=== PATIENT | male | born 1955 | race Caucasian/White ===

== ENCOUNTER 2017-02-06 15:42 | Inpatient (IN) | payer BC ==
[2017-02-06] MEDS ORDERED: IPRATROPIUM-ALBUTEROL 3 ML NEB INHALATION STA (16:16)
[2017-02-06] MEDS ORDERED: methylPREDNISolone SOD SUCCI 125 MG/2 ML VIAL IV STA (16:16)
--- NOTE | 2017-02-06 16:21 | ED ---
SOB HPI - General Chief Complaint: Shortness of Breath Stated Complaint: SOB Time Seen by Provider: 02/06/17 16:00 Source: patient, family, RN notes reviewed Mode of arrival: wheelchair Limitations: no limitations - History of Present Illness Initial Comments: This is a 61-year-old male with history of COPD who still smoker who is had intermittent episodes of swollen ankles orthopedist was also states she's had shortness of breath off was here today because of increasing shortness of breath he has had some cough of white phlegm no fevers chills or sweats he denies any overt chest pains this time he is having worse symptoms he was brought in by his [id number] because of the concern. MD Complaint: shortness of breath - Related Data Home Medications Medication Instructions Recorded Confirmed Budesonide/Formoterol Fumarate 2 puff INHALATION RT-DAILY PRN 02/06/17 02/06/17 [Symbicort 80-4.5 Mcg Inhaler] Fluticasone Nasal [place] [Flonase 2 spr EA NOSTRIL DAILY PRN 02/06/17 02/06/17 Nasal [place]] Mometasone/Formoterol [Dulera 100 2 puff INHALATION RT-BID PRN 02/06/17 02/06/17 Mcg/5 Mcg Inhaler] Tamsulosin [Flomax] 0.4 mg PO HS 02/06/17 02/06/17 Allergies Allergy/AdvReac Type Severity Reaction Status Date / Time No Known Allergies Allergy Verified 02/06/17 16:26 Review of Systems ROS Statement: Those systems with pertinent positive or pertinent negative responses have been documented in the HPI. ROS Other: All systems not noted in ROS Statement are negative. Past Medical History Past Medical History: Asthma History of Any Multi-Drug Resistant Organisms: None Reported Past Surgical History: No Surgical Hx Reported Past Psychological History: No Psychological Hx Reported Smoking Status: Current every day smoker Past Alcohol Use History: Daily Past Drug Use History: Unable to Obtain General Exam - General Exam Comments Initial Comments: This is a well-developed well-nourished awake alert oriented 3 male Limitations: no limitations General appearance: alert, in no apparent distress Head exam: Present: atraumatic, normocephalic, normal inspection Eye exam: Present: normal appearance, PERRL, EOMI. Absent: scleral icterus, conjunctival injection, periorbital swelling ENT exam: Present: normal exam, mucous membranes moist Neck exam: Present: normal inspection. Absent: tenderness, meningismus, lymphadenopathy Respiratory exam: Present: wheezes, decreased breath sounds. Absent: respiratory distress, rales, rhonchi, stridor Cardiovascular Exam: Present: regular rate, normal rhythm, normal heart sounds. Absent: systolic murmur, diastolic murmur, rubs, gallop, clicks GI/Abdominal exam: Present: soft, normal bowel sounds. Absent: distended, tenderness, guarding, rebound, rigid Extremities exam: Present: normal inspection, full ROM, normal capillary refill , pedal edema. Absent: tenderness, joint swelling, calf tenderness Back exam: Present: normal inspection Neurological exam: Present: alert, oriented X3, CN II-XII intact Psychiatric exam: Present: normal affect, normal mood Skin exam: Present: warm, dry, intact, normal color. Absent: rash Course Vital Signs 02/06/17 02/06/17 02/06/17 15:45 16:29 16:35 Temperature 98 F Pulse Rate 92 78 66 Respiratory 20 16 Rate Blood Pressure 175/92 170/85 O2 Sat by Pulse 98 100 Oximetry 02/06/17 02/06/17 02/06/17 16:40 17:20 18:33 Temperature 100.1 F H Pulse Rate 64 71 71 Respiratory 18 18 Rate Blood Pressure 153/77 167/77 O2 Sat by Pulse 95 96 Oximetry - Reevaluation(s) Reevaluation #1: 02/06/17 18:46 I did reevaluate patient several occasions. Medical Decision Making - Medical Decision Making Reevaluation patient reveals some improvement in his aeration is still wheezing and short of breath. I did a long discussion with him and his family admitted for hydration and for intense updraft and likely replacement. Pulmonary vessel be consulted. - Lab Data Result diagrams: 02/06/17 16:10 02/06/17 16:10 Lab Results 02/06/17 02/06/17 02/06/17 Range/Units 16:10 16:10 16:10 WBC 7.0 (3.8-10.6) k/uL RBC 3.41 L (4.30-5.90) m/uL Hgb 12.7 L (13.0-17.5) gm/dL Hct 36.4 L (39.0-53.0) % MCV 106.6 H (80.0-100.0) fL MCH 37.2 H (25.0-35.0) pg MCHC 34.9 (31.0-37.0) g/dL RDW 15.8 H (11.5-15.5) % Plt Count 282 (150-450) k/uL Neutrophils % 70 % Lymphocytes % 25 % Monocytes % 2 % Eosinophils % 1 % Basophils % 0 % Neutrophils # 4.9 (1.3-7.7) k/uL Lymphocytes # 1.7 (1.0-4.8) k/uL Monocytes # 0.2 (0-1.0) k/uL Eosinophils # 0.1 (0-0.7) k/uL Basophils # 0.0 (0-0.2) k/uL Macrocytosis Moderate PT (9.0-12.0) sec INR (<1.1) APTT (22.0-30.0) sec Sodium 138 (137-145) mmol/L Potassium 2.9 L* (3.5-5.1) mmol/L Chloride 97 L (98-107) mmol/L Carbon Dioxide 35 H (22-30) mmol/L Anion Gap 6 mmol/L BUN 10 (9-20) mg/dL Creatinine 0.61 L (0.66-1.25) mg/dL Est GFR (MDRD) Af Amer >60 (>60 ml/min/1.73 sqM) Est GFR (MDRD) Non-Af >60 (>60 ml/min/1.73 sqM) Glucose 107 H (74-99) mg/dL Calcium 8.3 L (8.4-10.2) mg/dL Magnesium 1.4 L (1.6-2.3) mg/dL Total Bilirubin 1.5 H (0.2-1.3) mg/dL AST 26 (17-59) U/L ALT 16 L (21-72) U/L Alkaline Phosphatase 97 (38-126) U/L Total Creatine Kinase 41 L (55-170) U/L CK-MB (CK-2) <0.2 (0.0-2.4) ng/mL CK-MB (CK-2) Rel Index Troponin I <0.012 (0.000-0.034) ng/mL NT-Pro-B Natriuret Pep pg/mL Total Protein 6.2 L (6.3-8.2) g/dL Albumin 3.3 L (3.5-5.0) g/dL 02/06/17 02/06/17 Range/Units 16:10 16:10 WBC (3.8-10.6) k/uL RBC (4.30-5.90) m/uL Hgb (13.0-17.5) gm/dL Hct (39.0-53.0) % MCV (80.0-100.0) fL MCH (25.0-35.0) pg MCHC (31.0-37.0) g/dL RDW (11.5-15.5) % Plt Count (150-450) k/uL Neutrophils % % Lymphocytes % % Monocytes % % Eosinophils % % Basophils % % Neutrophils # (1.3-7.7) k/uL Lymphocytes # (1.0-4.8) k/uL Monocytes # (0-1.0) k/uL Eosinophils # (0-0.7) k/uL Basophils # (0-0.2) k/uL Macrocytosis PT 10.8 (9.0-12.0) sec INR 1.1 (<1.1) APTT 22.3 (22.0-30.0) sec Sodium (137-145) mmol/L Potassium (3.5-5.1) mmol/L Chloride (98-107) mmol/L Carbon Dioxide (22-30) mmol/L Anion Gap mmol/L BUN (9-20) mg/dL Creatinine (0.66-1.25) mg/dL Est GFR (MDRD) Af Amer (>60 ml/min/1.73 sqM) Est GFR (MDRD) Non-Af (>60 ml/min/1.73 sqM) Glucose (74-99) mg/dL Calcium (8.4-10.2) mg/dL Magnesium (1.6-2.3) mg/dL Total Bilirubin (0.2-1.3) mg/dL AST (17-59) U/L ALT (21-72) U/L Alkaline Phosphatase (38-126) U/L Total Creatine Kinase (55-170) U/L CK-MB (CK-2) (0.0-2.4) ng/mL CK-MB (CK-2) Rel Index Troponin I (0.000-0.034) ng/mL NT-Pro-B Natriuret Pep 220 pg/mL Total Protein (6.3-8.2) g/dL Albumin (3.5-5.0) g/dL - EKG Data -: EKG Interpreted by Me EKG shows normal: sinus rhythm (Sinus rhythm with evidence of PACs rate was 64. 126 QRS 100 daily since QTC of 450/[address]-T wave changes) - Radiology Data Radiology results: report reviewed (X-ray shows no evidence of acute), image reviewed Critical Care Time Critical Care Time: Yes Critical Care Time: 31 minutes of critical care time which includes initial presentation with history physical labs x-rays reevaluation patient several occasions. Discussion with patient family regarding the findings were discussed with the admitting physician. Admission orders and documentation of the above. Disposition Clinical Impression: Acute exacerbation of chronic obstructive airways disease, Adult respiratory distress syndrome, Hypomagnesemia syndrome, Hypokalemia, Febrile illness, acute , Bronchitis Disposition: ADMITTED IP TO THIS [facility] Condition: Stable Referrals: None,Stated [Primary Care Provider] - 1-2 days
[2017-02-06] MEDS: SODIUM CHLORIDE 0.9% 1,000 ML IV STA ×2 (16:32→23:13)
[2017-02-06 17:00] LABS: Basophils % (A) 0 %; CH 37.6; CHCM 35.3; Eosinophils # (A) 0.1 k/uL (0-0.7); Eosinophils % (A) 1 %; HCT 36.4 % (39.0-53.0); HDW 2.94; HGB 12.7 gm/dL (13.0-17.5); Luc % (Auto) 1; Lymphocytes # (A) 1.7 k/uL (1.0-4.8); Lymphocytes % (A) 25 %; MCH 37.2 pg (25.0-35.0); MCHC 34.9 g/dL (31.0-37.0); MCV 106.6 fL (80.0-100.0); Macrocytosis Moderate; Mean Platelet Volume 6.9; Monocytes # (A) 0.2 k/uL (0-1.0); Monocytes % (A) 2 %; Neutrophils # (A) 4.9 k/uL (1.3-7.7); Neutrophils % (A) 70 %; RBC 3.41 m/uL (4.30-5.90); RDW 15.8 % (11.5-15.5); WBC (Perox) 7.23
--- NOTE | 2017-02-06 17:07 | XR ---
EXAMINATION TYPE: XR chest 2V DATE OF EXAM: 02/06/2017 COMPARISON: NONE HISTORY: Difficulty breathing, leg edema, emphysema TECHNIQUE: Frontal and lateral views of the chest are obtained on 4 images. FINDINGS: There is no focal air space opacity, pleural effusion, or pneumothorax seen. There are pr ominent lung volumes. The cardiac silhouette size is within normal limits, the heart is small, there are overlying cardiac leads. The osseous structures are intact. IMPRESSION: No acute cardiopulmonary process.
[2017-02-06 17:14] LABS: ALT 16 U/L (21-72); AST 26 U/L (17-59); Alkaline Phosphatase 97 U/L (38-126); Anion Gap 6 mmol/L; Blood Urea Nitrogen 10 mg/dL (9-20); Calcium 8.3 mg/dL (8.4-10.2); Carbon Dioxide 35 mmol/L (22-30); Chloride 97 mmol/L (98-107); Glucose 107 mg/dL (74-99); Magnesium 1.4 mg/dL (1.6-2.3); Non-African American GFR(MDRD) >60 (>60 ml/min/1.73 sqM); Sodium 138 mmol/L (137-145); Total Bilirubin 1.5 mg/dL (0.2-1.3); Total Protein 6.2 g/dL (6.3-8.2)
[2017-02-06 17:17] LABS: INR 1.1 (<1.1); Partial Thromboplastin Time 22.3 sec (22.0-30.0); Prothrombin Time 10.8 sec (9.0-12.0)
[2017-02-06 17:19] LABS: Potassium 2.9 mmol/L (3.5-5.1)
[2017-02-06 17:26] LABS: Creatine Kinase 41 U/L (55-170)
[2017-02-06] MEDS ORDERED: MAGNESIUM SULFATE-D5W PMX 1 GM in DEXTROSE/WATER 1 100ML.BAG IVPB ONE ×2 (17:32→18:56)
[2017-02-06] MEDS ORDERED: POTASSIUM CHLORIDE ER 20 MEQ TAB.ER PO STA ×2 (17:32→18:56)
[2017-02-06] MEDS ORDERED: POTASSIUM CHLORIDE 20 MEQ in WATER FOR INJECTION 1 100ML.BAG IVPB STA (17:33)
[2017-02-06 17:39] LABS: Creatine Kinase MB <0.2 ng/mL (0.0-2.4); Troponin I <0.012 ng/mL (0.000-0.034)
[2017-02-06] MEDS ORDERED: ACETAMINOPHEN TAB 500 MG TAB PO STA (18:32)
[2017-02-06] MEDS ORDERED: SODIUM CHLORIDE 0.9% 1,000 ML IV STA (18:55)
[2017-02-06] MEDS ORDERED: IPRATROPIUM-ALBUTEROL 3 ML NEB INHALATION SCH (20:00)
[2017-02-06] MEDS ORDERED: LEVOFLOXACIN 500 MG TAB PO SCH (21:00)
[2017-02-06] MEDS ORDERED: FLUTICASONE 50MCG/SPRAY NASAL 16GM EA NOSTRIL PRN (21:27)
[2017-02-06 21:28] VITALS: BMI 19.4
[2017-02-06] MEDS ORDERED: IPRATROPIUM-ALBUTEROL 3 ML NEB INHALATION PRN (23:02)
[2017-02-06] MEDS: SODIUM CHLORIDE 0.9% 1,000 ML IV SCH (23:12)
[2017-02-06] MEDS: methylPREDNISolone SOD SUCCI 125 MG/2 ML VIAL IV SCH (23:53)
[2017-02-07] MEDS: methylPREDNISolone SOD SUCCI 125 MG/2 ML VIAL IV SCH ×2 (05:55→12:17)
[2017-02-07 06:17] LABS: Glucose,Whole Blood 174 mg/dL (75-99)
[2017-02-07] MEDS: INSULIN LISPRO (humaLOG) 300 UNIT/3 ML VIAL SQ SCH ×4 (06:21→21:57)
[2017-02-07] MEDS: ENOXAPARIN 40 MG/0.4 ML SYRINGE SQ SCH (08:36)
[2017-02-07] MEDS: IPRATROPIUM-ALBUTEROL 3 ML NEB INHALATION SCH ×5 (08:37→19:50)
[2017-02-07 10:42] LABS: Anion Gap 10 mmol/L; Blood Urea Nitrogen 9 mg/dL (9-20); Calcium 8.5 mg/dL (8.4-10.2); Carbon Dioxide 28 mmol/L (22-30); Chloride 99 mmol/L (98-107); Glucose 210 mg/dL (74-99); Magnesium 1.8 mg/dL (1.6-2.3); Non-African American GFR(MDRD) >60 (>60 ml/min/1.73 sqM); Potassium 3.5 mmol/L (3.5-5.1); Sodium 137 mmol/L (137-145)
--- NOTE | 2017-02-07 11:34 | P.CNPUL ---
History of Present Illness Consult date: 02/07/17 Requesting physician: Hernan Alexander Reason for consult: dyspnea Chief complaint: Shortness of breath, swelling of the lower extremities History of present illness: This is a very pleasant 61-year-old gentleman who has a history of chronic obstructive pulmonary disease and benign prosthetic hypertrophy. He does have a 50 year smoking history and continues to smoke currently. He also has daily alcohol use. He has been short of breath at home and utilizes his daughter-in- law's father's extra inhalers periodically. This has been either Symbicort or Dulera. He had developed increasing shortness of breath and swelling in the feet and ankles and was brought here to the emergency room for the same. His chest x-ray did not reveal any acute cardiopulmonary process. He did have a temp of 100.1. No leukocytosis. Hemodynamically stable. He was hypokalemic with a potassium of 2.9. ProBNP 220, troponin negative 1. Bicarb 35. MCV 106.6. He is seen today in consultation on the selective care unit. He is awake and alert in no acute distress. He's been initiated on short acting bronchodilators, Symbicort and IV Solu-Medrol. He is breathing easier today as compared to yesterday. He does have trace peripheral edema. He has been coughing up clear/white phlegm. He's been afebrile. Review of Systems 14 point review of system was conducted. All negative other than as mentioned in the HPI. Past Medical History Past Medical History: COPD, Prostate Disorder History of Any Multi-Drug Resistant Organisms: None Reported Past Surgical History: No Surgical Hx Reported Past Anesthesia/Blood Transfusion Reactions: Unable to Obtain Additional Past Anesthesia/Blood Transfusion Reaction / Comment(s): patient has not received blood or anesthetic Past Psychological History: No Psychological Hx Reported Smoking Status: Current every day smoker Past Alcohol Use History: Daily Past Drug Use History: None Reported Medications and Allergies Home Medications Medication Instructions Recorded Confirmed Type Budesonide/Formoterol Fumarate 2 puff INHALATION RT-DAILY PRN 02/06/17 02/06/17 History [Symbicort 80-4.5 Mcg Inhaler] Fluticasone Nasal [place] [Flonase 2 spr EA NOSTRIL DAILY PRN 02/06/17 02/06/17 History Nasal [place]] Mometasone/Formoterol [Dulera 100 2 puff INHALATION RT-BID PRN 02/06/17 History Mcg/5 Mcg Inhaler] Tamsulosin [Flomax] 0.4 mg PO HS 02/06/17 02/06/17 History Allergies Allergy/AdvReac Type Severity Reaction Status Date / Time No Known Allergies Allergy Verified 02/06/17 16:26 Physical Exam Vitals: Vital Signs Temp Pulse Pulse Resp BP BP Pulse Ox 02/07/17 08:49 88 02/07/17 08:37 90 02/07/17 08:00 97.7 F 87 20 133/80 93 L 02/07/17 04:00 97.5 F L 76 18 158/77 96 02/07/17 00:00 97 F L 65 18 138/74 99 02/06/17 21:14 97.7 F 68 18 149/87 96 02/06/17 20:58 98.5 F 63 17 164/80 97 02/06/17 18:33 71 18 167/77 96 02/06/17 17:20 100.1 F H 71 18 153/77 95 02/06/17 16:40 64 02/06/17 16:35 66 16 170/85 100 02/06/17 16:29 78 02/06/17 15:45 98 F 92 20 175/92 98 Intake and Output 02/06/17 02/07/17 02/07/17 22:59 06:59 14:59 Intake Total 960 118 Balance 960 118 Intake: IV 160 Sodium Chloride 0.9% 1, 160 000 ml @ 20 mls/hr IV . Q24H STA Rx#:[id number] Oral 800 118 Other: # Voids 1 Weight 56.245 kg 56.2 kg GENERAL EXAM: Alert, comfortable in no apparent distress. HEAD: Normocephalic. EYES: Normal reaction of pupils, equal size. NOSE: Clear with pink turbinates. THROAT: No erythema or exudates. NECK: No masses, no JVD. CHEST: No chest wall deformity. LUNGS: Equal air entry with bilateral end expiratory wheeze. Diminished.. CVS: S1 and S2 normal with no audible murmurs, regular rhythm. ABDOMEN: Soft, normal bowel sounds, no guarding or rigidity. SPINE: No scoliosis or deformity SKIN: No rashes CENTRAL NERVOUS SYSTEM: No focal deficits, tone is normal in all 4 extremities. Extremities: There is trace peripheral edema. No clubbing, no cyanosis. Peripheral pulses are intact. Results - Laboratory Findings CBC and BMP: 02/06/17 16:10 02/06/17 16:10 PT/INR, D-dimer PT 10.8 sec (9.0-12.0) 02/06/17 16:10 INR 1.1 (<1.1) 02/06/17 16:10 Abnormal lab findings: Abnormal Labs 02/06/17 02/06/17 02/06/17 16:10 16:10 16:10 RBC 3.41 L Hgb 12.7 L Hct 36.4 L MCV 106.6 H MCH 37.2 H RDW 15.8 H Potassium 2.9 L* Chloride 97 L Carbon Dioxide 35 H Creatinine 0.61 L Glucose 107 H POC Glucose (mg/dL) Calcium 8.3 L Magnesium 1.4 L Total Bilirubin 1.5 H ALT 16 L Total Creatine Kinase 41 L Total Protein 6.2 L Albumin 3.3 L 02/07/17 06:15 RBC Hgb Hct MCV MCH RDW Potassium Chloride Carbon Dioxide Creatinine Glucose POC Glucose (mg/dL) 174 H Calcium Magnesium Total Bilirubin ALT Total Creatine Kinase Total Protein Albumin - Diagnostic Findings Chest x-ray: image reviewed (No acute cardiopulmonary process) Assessment and Plan Plan: Impression: #1 Acute exacerbation of chronic obstructive pulmonary disease. #2 Chronic and ongoing tobacco dependence. #3 Benign prosthetic hypertrophy. Plan: The patient was seen and evaluated by Dr. Cross. His chest x-ray and labs were reviewed. We will go ahead and treat the patient for COPD exacerbation. He is on short acting bronchodilators, IV Solu-Medrol, Symbicort. He is also on empiric antibiotics in the form of Levaquin. He is on Lovenox for DVT prophylaxis. He is educated regarding importance of complete smoking cessation. A NicoDerm patch will be offered. He would benefit from an outpatient workup in regards to his COPD including full pulmonary function testing to evaluate the severity and make recommendations for her maintenance medications. In the interim, we'll continue to follow and make further recommendations based on his clinical status. Time with Patient: Greater than 30
[2017-02-07 11:50] LABS: Glucose,Whole Blood 185 mg/dL (75-99)
[2017-02-07] MEDS: NICOTINE 21MG/24HR PATCH TRANSDERM SCH (12:17)
[2017-02-07] MEDS: DIAZEPAM 2 MG TAB PO SCH ×2 (15:25→21:57)
[2017-02-07] MEDS: SODIUM CHLORIDE 0.9% 1,000 ML IV SCH (15:26)
[2017-02-07 16:37] LABS: Glucose,Whole Blood 198 mg/dL (75-99)
[2017-02-07] MEDS: methylPREDNISolone SOD SUCCI 40 MG/ML 1 ML VIAL IV SCH (16:42)
--- NOTE | 2017-02-07 17:42 | HP ---
DATE OF ADMISSION: 02/06/2017 PRESENTING COMPLAINT: Short of breath, cough. HISTORY OF PRESENTING COMPLAINT: This is a 61-year-old patient who presents with worsening shortness of breath, some swelling of the legs, cough with white sputum, low-grade fever, decreased appetite, feeling rundown. Patient has been smoking for a long time. Cough and wheezing. REVIEW OF SYSTEMS: CONSTITUTIONAL: Tired. HEENT: None. RESPIRATORY: As above. CARDIOVASCULAR: None. GASTROINTESTINAL: Heartburn. GENITOURINARY: None. MUSCULOSKELETAL: Pain in different joints. DERMATOLOGICAL: None. HEMATOLOGICAL: None. LYMPHATICS: None. PSYCHIATRY: None. NEUROLOGICAL: None. PAST HISTORY: 1. COPD. 2. BPH. PAST SURGICAL HISTORY: None. SOCIAL HISTORY: Smokes a pack a day. Lives with his son. Drinks a pint of ani every day. FAMILY HISTORY: Reviewed; non-contributory to presentation. HOME MEDICATIONS: 1. Dulera 100/5 two puffs b.i.d. 2. Flomax 0.4 mg at bedtime. 3. Flonase. ALLERGIES: NONE. PHYSICAL EXAMINATION: VITAL SIGNS ON PRESENTATION: Temperature 98, pulse 92, respiration 20, blood pressure 175/92, pulse ox 98% on room air. GENERAL APPEARANCE: Thin build. Sitting up. Short of breath. EYES: Pupils equal. Conjunctivae normal. HEENT: Oral cavity normal. NECK: JVD not raised. Mass not palpable. RESPIRATORY: Effort increased. LUNGS: Decreased ( ) prolonged expiration and wheezing. CARDIOVASCULAR: First and second sounds normal. Mild edema. ABDOMEN: Soft, nontender. Liver and spleen not palpable. LYMPHATICS: No lymph node palpable in neck or axillae. PSYCHIATRY: Alert and oriented x3. Mood and affect anxious-appearing. NEUROLOGICAL: Pupils equal. Cranial nerves grossly intact. Power and sensation grossly intact. INVESTIGATIONS: White count 7, hemoglobin 12.7, MCV 106.2. Potassium 2.9; repeat 3.5. BUN 10, creatinine 0.61. Bilirubin 1.5. Chest x-ray shows hyperinflation with no infiltrates. ASSESSMENT: 1. Acute severe chronic obstructive pulmonary disease exacerbation in a smoker. 2. Chronic nicotine dependence. Patient is a smoker. 3. Benign prostatic hypertrophy. 4. Macrocytic anemia from chronic alcoholism. 5. Chronic alcoholic dependence. 6. Severe hypokalemia. PLAN: Patient was put on nebulized bronchodilators, IV steroids. Patient was put on a nicotine patch. Will also put him on a small dose of Valium for DT prophylaxis. Replace potassium. Pulmonary was consulted. I do not see any evidence of pneumonia; hence will hold off any antibiotics. Care was discussed with the patient.
[2017-02-07] MEDS: SYMBICORT 160-4.5 MCG INHALER INHALATION SCH (19:50)
[2017-02-07 21:03] LABS: Glucose,Whole Blood 234 mg/dL (75-99)
[2017-02-07] MEDS: TAMSULOSIN 0.4 MG CAP.ER.24H PO SCH (21:57)
[2017-02-07] MEDS ORDERED: ACETAMINOPHEN TAB 325 MG TAB PO PRN (22:27)
[2017-02-08] MEDS: IPRATROPIUM-ALBUTEROL 3 ML NEB INHALATION SCH ×7 (00:13→23:48)
[2017-02-08] MEDS: methylPREDNISolone SOD SUCCI 40 MG/ML 1 ML VIAL IV SCH ×2 (00:35→08:01)
[2017-02-08] MEDS: SODIUM CHLORIDE 0.9% 1,000 ML IV SCH ×4 (00:35→21:46)
[2017-02-08] MEDS: DIAZEPAM 5 MG TAB PO SCH ×3 (06:02→21:46)
[2017-02-08 06:15] LABS: Glucose,Whole Blood 188 mg/dL (75-99)
[2017-02-08] MEDS: INSULIN LISPRO (humaLOG) 300 UNIT/3 ML VIAL SQ SCH ×4 (06:48→21:03)
[2017-02-08] MEDS: SYMBICORT 160-4.5 MCG INHALER INHALATION SCH ×2 (06:57→19:26)
[2017-02-08] MEDS: METOPROLOL TARTRATE 25 MG TAB PO SCH ×2 (08:00→21:03)
[2017-02-08] MEDS: NICOTINE 21MG/24HR PATCH TRANSDERM SCH (08:00)
[2017-02-08] MEDS: ENOXAPARIN 40 MG/0.4 ML SYRINGE SQ SCH (08:01)
--- NOTE | 2017-02-08 10:07 | P.PN ---
Subjective Principal diagnosis: Acute exacerbation of COPD This is a very pleasant 61-year-old gentleman who has a history of chronic obstructive pulmonary disease and benign prosthetic hypertrophy. He does have a 50 year smoking history and continues to smoke currently. He also has daily alcohol use. He has been short of breath at home and utilizes his daughter-in- law's father's extra inhalers periodically. This has been either Symbicort or Dulera. He had developed increasing shortness of breath and swelling in the feet and ankles and was brought here to the emergency room for the same. His chest x-ray did not reveal any acute cardiopulmonary process. He did have a temp of 100.1. No leukocytosis. Hemodynamically stable. He was hypokalemic with a potassium of 2.9. ProBNP 220, troponin negative 1. Bicarb 35. MCV 106.6. He is seen today in consultation on the selective care unit. He is awake and alert in no acute distress. He's been initiated on short acting bronchodilators, Symbicort and IV Solu-Medrol. He is breathing easier today as compared to yesterday. He does have trace peripheral edema. He has been coughing up clear/white phlegm. He's been afebrile. Patient was reevaluated today on 02/08/2017, feeling better, breathing easier, less cough and less wheezing less shortness of breath, and less swelling in the lower extremities. Patient is afebrile, and vital signs are stable. O2 saturation on room air is 96%. Objective - Vital Signs Vital signs: Vital Signs Temp 97.6 F 02/08/17 08:00 Pulse 94 02/08/17 08:00 Resp 16 02/08/17 08:00 BP 113/57 02/08/17 08:00 Pulse Ox 96 02/08/17 08:00 Intake & Output 02/07/17 02/08/17 02/08/17 18:59 06:59 18:59 Intake Total 838 410 Balance 838 410 Weight 58.9 kg Intake: IV 240 160 Sodium Chloride 0.9% 1, 240 160 000 ml @ 20 mls/hr IV . Q24H STA Rx#:[id number] Oral 598 250 Other: Voiding Method Toilet Toilet # Voids 2 - Exam GENERAL EXAM: Alert, comfortable in no apparent distress. HEAD: Normocephalic. EYES: Normal reaction of pupils, equal size. NOSE: Clear with pink turbinates. THROAT: No erythema or exudates. NECK: No masses, no JVD. CHEST: No chest wall deformity. LUNGS: Equal air entry with bilateral end expiratory wheeze. Diminished.. CVS: S1 and S2 normal with no audible murmurs, regular rhythm. ABDOMEN: Soft, normal bowel sounds, no guarding or rigidity. SPINE: No scoliosis or deformity SKIN: No rashes CENTRAL NERVOUS SYSTEM: No focal deficits, tone is normal in all 4 extremities. Extremities: There is trace peripheral edema. No clubbing, no cyanosis. Peripheral pulses are intact. - Labs CBC & Chem 7: 02/06/17 16:10 02/07/17 09:32 Labs: Abnormal Lab Results - Last 24 Hours (Table) 02/07/17 02/07/17 02/07/17 Range/Units 09:32 11:49 16:35 Creatinine 0.60 L (0.66-1.25) mg/dL Glucose 210 H (74-99) mg/dL POC Glucose (mg/dL) 185 H 198 H (75-99) mg/dL 02/07/17 02/08/17 Range/Units 21:00 06:14 Creatinine (0.66-1.25) mg/dL Glucose (74-99) mg/dL POC Glucose (mg/dL) 234 H 188 H (75-99) mg/dL Assessment and Plan Plan: #1 Acute exacerbation of chronic obstructive pulmonary disease. #2 Chronic and ongoing tobacco dependence. #3 Benign prosthetic hypertrophy. #4 suspect some component of cor pulmonale, improving and is mostly secondary to chronic obstructive lung disease. Recommendation: Continue present treatment plan, will switch Solu-Medrol to prednisone, and discharge the patient home in a.m. Continue bronchodilators otherwise as ordered. Patient should be seen on follow-up on outpatient basis. Time with Patient: Less than 30
[2017-02-08] MEDS: predniSONE 10 MG TAB PO SCH (11:30)
[2017-02-08 12:09] LABS: Glucose,Whole Blood 157 mg/dL (75-99)
[2017-02-08 17:35] LABS: Glucose,Whole Blood 176 mg/dL (75-99)
[2017-02-08 19:14] LABS: Basophils % (A) 0 %; CHCM 34.4; Eosinophils # (A) 0.1 k/uL (0-0.7); Eosinophils % (A) 1 %; HCT 30.9 % (39.0-53.0); HDW 2.78; Luc # (Auto) 0.04; Luc % (Auto) 1; Lymphocytes # (A) 0.7 k/uL (1.0-4.8); Lymphocytes % (A) 8 %; MCH 38.4 pg (25.0-35.0); MCHC 35.6 g/dL (31.0-37.0); MCV 107.7 fL (80.0-100.0); Macrocytosis Marked; Mean Platelet Volume 7.9; Monocytes # (A) 0.2 k/uL (0-1.0); Monocytes % (A) 3 %; Neutrophils # (A) 7.6 k/uL (1.3-7.7); Neutrophils % (A) 88 %; RBC 2.87 m/uL (4.30-5.90); RDW 15.3 % (11.5-15.5); WBC 8.6 k/uL (3.8-10.6); WBC (Perox) 9.16
[2017-02-08 19:16] LABS: Anion Gap 8 mmol/L; Blood Urea Nitrogen 12 mg/dL (9-20); Calcium 7.8 mg/dL (8.4-10.2); Carbon Dioxide 25 mmol/L (22-30); Chloride 105 mmol/L (98-107); Glucose 144 mg/dL (74-99); Non-African American GFR(MDRD) >60 (>60 ml/min/1.73 sqM); Potassium 3.5 mmol/L (3.5-5.1); Sodium 138 mmol/L (137-145)
[2017-02-08 19:22] LABS: Manual Review Performed
--- NOTE | 2017-02-08 20:06 | P.PN ---
Progress Note - Text DATE OF SERVICE: 02/08/2017 PRESENTING COMPLAINT: Short of breath, cough INTERVAL HISTORY: This is a 61-year-old patient with an acute exacerbation of COPD. Patient is sitting up in bed appears a bit anxious, breathing is better, less wheezing, appetite good eating about 50% of his meal, ambulatory to and from the bathroom. REVIEW OF SYSTEMS: Done for constitutional ,cardiovascular, GI, pulmonary with relevant findings as above. CURRENT MEDICATIONS Albuterol, Symbicort, Valium, Lovenox, Flonase, Humalog, metoprolol, prednisone , Flomax. PHYSICAL EXAM: VITAL SIGNS: Temperature 97.6, pulse 94, respirations 18, blood pressure 113/57, oxygen saturation 96% on room air GENERAL APPEARANCE: Lying in bed, not in distress. EYES: Pupils equal. Conjunctiva normal. NECK: JVD not raised. Mass not palpable. RESPIRATORY: Respiratory effort increased l. Lungs decreased inspiration prolonged expiration and wheezing. CARDIOVASCULAR: First and second sounds normal. Mild edema. ABDOMEN: Soft. Liver and spleen not palpable. No tenderness. No mass palpable. PSYCHIATRY: Alert and oriented x3. Mood and affect somewhat anxious l. INVESTIGATIONS: . White blood cell count 8.6, hemoglobin 11.0, platelet count 64, Accu-Cheks noted. ASSESSMENT: Acute severe chronic obstructive pulmonary disease exacerbation in a smoker, improving. Chronic nicotine dependence, patient is a smoker. Benign prostatic hypertrophy. Macrocytic anemia from chronic alcoholism. Chronic alcohol dependence. Severe hypokalemia, resolved. PLAN: Solu-Medrol switched to oral prednisone for discharge. Continue breathing treatments, from pulmonary standpoint patient stable for discharge. Plan to discharge in a.m. 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 Alexander
[2017-02-08 20:42] LABS: Glucose,Whole Blood 190 mg/dL (75-99)
[2017-02-08] MEDS: TAMSULOSIN 0.4 MG CAP.ER.24H PO SCH (21:03)
[2017-02-08 22:35] LABS: Basophils % (A) 0 %; CH 37.3; CHCM 34.8; Eosinophils % (A) 0 %; HDW 2.75; HGB 10.1 gm/dL (13.0-17.5); Luc # (Auto) 0.07; Luc % (Auto) 1; Lymphocytes # (A) 1.2 k/uL (1.0-4.8); Lymphocytes % (A) 13 %; MCH 37.6 pg (25.0-35.0); MCV 107.4 fL (80.0-100.0); Macrocytosis Marked; Mean Platelet Volume 6.9; Monocytes # (A) 0.3 k/uL (0-1.0); Monocytes % (A) 4 %; Neutrophils # (A) 7.7 k/uL (1.3-7.7); Neutrophils % (A) 82 %; RDW 15.5 % (11.5-15.5); WBC 9.3 k/uL (3.8-10.6); WBC (Perox) 9.79
[2017-02-09] MEDS: IPRATROPIUM-ALBUTEROL 3 ML NEB INHALATION SCH ×3 (03:56→13:09)
[2017-02-09] MEDS: DIAZEPAM 5 MG TAB PO SCH (05:49)
[2017-02-09 06:02] VITALS: TEMP 97
[2017-02-09 06:22] LABS: Glucose,Whole Blood 122 mg/dL (75-99)
[2017-02-09] MEDS: INSULIN LISPRO (humaLOG) 300 UNIT/3 ML VIAL SQ SCH ×2 (06:43→11:57)
[2017-02-09] MEDS: SODIUM CHLORIDE 0.9% 1,000 ML IV SCH (06:48)
[2017-02-09 06:57] LABS: Anion Gap 6 mmol/L; Blood Urea Nitrogen 11 mg/dL (9-20); Calcium 7.6 mg/dL (8.4-10.2); Carbon Dioxide 26 mmol/L (22-30); Chloride 107 mmol/L (98-107); Glucose 108 mg/dL (74-99); Non-African American GFR(MDRD) >60 (>60 ml/min/1.73 sqM); Sodium 139 mmol/L (137-145)
[2017-02-09 07:08] LABS: Potassium 2.8 mmol/L (3.5-5.1)
[2017-02-09 07:20] LABS: Basophils % (A) 0 %; CHCM 33.2; Eosinophils % (A) 0 %; HCT 30.4 % (39.0-53.0); HGB 10.4 gm/dL (13.0-17.5); Luc # (Auto) 0.08; Luc % (Auto) 1; Lymphocytes # (A) 1.9 k/uL (1.0-4.8); Lymphocytes % (A) 25 %; MCH 38.1 pg (25.0-35.0); MCHC 34.1 g/dL (31.0-37.0); MCV 111.6 fL (80.0-100.0); Macrocytosis Marked; Mean Platelet Volume 7.1; Monocytes # (A) 0.3 k/uL (0-1.0); Monocytes % (A) 4 %; Neutrophils # (A) 5.4 k/uL (1.3-7.7); Neutrophils % (A) 70 %; RBC 2.72 m/uL (4.30-5.90); RDW 15.9 % (11.5-15.5); WBC 7.7 k/uL (3.8-10.6); WBC (Perox) 7.87
[2017-02-09 08:56] LABS: Manual Review Performed
[2017-02-09 09:00] VITALS: RESP 17
[2017-02-09] MEDS: NICOTINE 21MG/24HR PATCH TRANSDERM SCH (09:00)
[2017-02-09] MEDS: METOPROLOL TARTRATE 25 MG TAB PO SCH (09:00)
[2017-02-09] MEDS: MAGNESIUM SULFATE-D5W PMX 1 GM in DEXTROSE/WATER 1 100ML.BAG IVPB SCH ×2 (09:01→10:13)
[2017-02-09] MEDS: predniSONE 10 MG TAB PO SCH (09:01)
[2017-02-09] MEDS: SYMBICORT 160-4.5 MCG INHALER INHALATION SCH (09:01)
[2017-02-09] MEDS: POTASSIUM CHLORIDE ER 20 MEQ TAB.ER PO SCH ×3 (09:01→11:41)
--- NOTE | 2017-02-09 09:54 | PN ---
DATE OF SERVICE: 02/08/2017 ATTENDING NOTE This patient was seen and examined by me earlier today. I reviewed the note of my discussion with Ms. Jamison. Discussed and the reviewed the initial findings below. He was admitted with COPD exacerbation. Feels better. Slight cough. Has been up to the bathroom. On examination, afebrile. Blood pressure 103/57. LUNGS: Decreased breath sounds. Prolonged expiration. Some wheezing. CARDIOVASCULAR: First and second sounds normal. No edema. INVESTIGATIONS: Labs are noted. Platelets 64. ASSESSMENT: 1. Acute severe chronic obstructive pulmonary disease exacerbation in a smoker, improving. 2. Thrombocytopenia. We will recheck platelets. In the meantime will discontinue the heparin. PLAN: Cut back dose of Solu-Medrol. Repeat platelets right away. Follow.
--- NOTE | 2017-02-09 10:49 | P.PN ---
Subjective Principal diagnosis: Acute exacerbation of COPD This is a very pleasant 61-year-old gentleman who has a history of chronic obstructive pulmonary disease and benign prosthetic hypertrophy. He does have a 50 year smoking history and continues to smoke currently. He also has daily alcohol use. He has been short of breath at home and utilizes his daughter-in- law's father's extra inhalers periodically. This has been either Symbicort or Dulera. He had developed increasing shortness of breath and swelling in the feet and ankles and was brought here to the emergency room for the same. His chest x-ray did not reveal any acute cardiopulmonary process. He did have a temp of 100.1. No leukocytosis. Hemodynamically stable. He was hypokalemic with a potassium of 2.9. ProBNP 220, troponin negative 1. Bicarb 35. MCV 106.6. He is seen today in consultation on the selective care unit. He is awake and alert in no acute distress. He's been initiated on short acting bronchodilators, Symbicort and IV Solu-Medrol. He is breathing easier today as compared to yesterday. He does have trace peripheral edema. He has been coughing up clear/white phlegm. He's been afebrile. Patient was reevaluated today on 02/08/2017, feeling better, breathing easier, less cough and less wheezing less shortness of breath, and less swelling in the lower extremities. Patient is afebrile, and vital signs are stable. O2 saturation on room air is 96% Patient was reevaluated today on 02/09/2017, continues to do well, feeling much better, patient was noted to have low potassium and low magnesium today, and these are being corrected by the admitting physician. Pulmonary-wu, much improvement noted less cough and less wheezing less shortness of breath, as a matter of fact, the patient is doing so well he could be discharged home today on prednisone burst and taper over the next 2 weeks starting at 30 mg daily for 4 days 20 mg daily for 4 days 10 mg daily for 4 days and 4 mg daily for 4 days. Patient can also be placed on antibiotics orally for 7 days, and on Symbicort as well as albuterol with Atrovent updrafts 4 times a day and when necessary. Objective - Vital Signs Vital signs: Vital Signs Temp 97 F L 02/09/17 08:00 Pulse 82 02/09/17 09:12 Resp 17 02/09/17 08:00 BP 114/58 02/09/17 08:00 Pulse Ox 94 L 02/09/17 08:00 Intake & Output 02/08/17 02/09/17 02/09/17 18:59 06:59 18:59 Intake Total 1600 118 Balance 1600 118 Weight 62.4 kg Intake: Intake, IV Titration 1600 Amount Sodium Chloride 0.9% 1, 1600 000 ml @ 100 mls/hr IV . Q10H ALLIE Rx#:[id number] Oral 118 Other: Voiding Method Toilet Toilet Toilet # Voids 2 - Exam GENERAL EXAM: Alert, comfortable in no apparent distress. HEAD: Normocephalic. EYES: Normal reaction of pupils, equal size. NOSE: Clear with pink turbinates. THROAT: No erythema or exudates. NECK: No masses, no JVD. CHEST: No chest wall deformity. LUNGS: Clear bilaterally, minimal wheezing on forced expiratory maneuver... CVS: S1 and S2 normal with no audible murmurs, regular rhythm. ABDOMEN: Soft, normal bowel sounds, no guarding or rigidity. SPINE: No scoliosis or deformity SKIN: No rashes CENTRAL NERVOUS SYSTEM: No focal deficits, tone is normal in all 4 extremities. Extremities: There is trace peripheral edema. No clubbing, no cyanosis. Peripheral pulses are intact. - Labs CBC & Chem 7: 02/09/17 05:46 02/09/17 05:46 Labs: Abnormal Lab Results - Last 24 Hours (Table) 02/08/17 02/08/17 02/08/17 Range/Units 11:47 16:59 18:48 RBC 2.87 L (4.30-5.90) m/uL Hgb 11.0 L (13.0-17.5) gm/dL Hct 30.9 L (39.0-53.0) % MCV 107.7 H (80.0-100.0) fL MCH 38.4 H (25.0-35.0) pg RDW (11.5-15.5) % Plt Count 64 L D (150-450) k/uL Lymphocytes # 0.7 L (1.0-4.8) k/uL Potassium (3.5-5.1) mmol/L Creatinine (0.66-1.25) mg/dL Glucose (74-99) mg/dL POC Glucose (mg/dL) 157 H 176 H (75-99) mg/dL Calcium (8.4-10.2) mg/dL 02/08/17 02/08/17 02/08/17 Range/Units 18:48 20:40 22:15 RBC 2.70 L (4.30-5.90) m/uL Hgb 10.1 L (13.0-17.5) gm/dL Hct 29.0 L (39.0-53.0) % MCV 107.4 H (80.0-100.0) fL MCH 37.6 H (25.0-35.0) pg RDW (11.5-15.5) % Plt Count (150-450) k/uL Lymphocytes # (1.0-4.8) k/uL Potassium (3.5-5.1) mmol/L Creatinine (0.66-1.25) mg/dL Glucose 144 H (74-99) mg/dL POC Glucose (mg/dL) 190 H (75-99) mg/dL Calcium 7.8 L (8.4-10.2) mg/dL 02/09/17 02/09/17 02/09/17 Range/Units 05:46 05:46 06:20 RBC 2.72 L (4.30-5.90) m/uL Hgb 10.4 L (13.0-17.5) gm/dL Hct 30.4 L (39.0-53.0) % MCV 111.6 H (80.0-100.0) fL MCH 38.1 H (25.0-35.0) pg RDW 15.9 H (11.5-15.5) % Plt Count (150-450) k/uL Lymphocytes # (1.0-4.8) k/uL Potassium 2.8 L* (3.5-5.1) mmol/L Creatinine 0.54 L (0.66-1.25) mg/dL Glucose 108 H (74-99) mg/dL POC Glucose (mg/dL) 122 H (75-99) mg/dL Calcium 7.6 L (8.4-10.2) mg/dL Assessment and Plan Plan: #1 Acute exacerbation of chronic obstructive pulmonary disease. Improving significantly, hence the patient could be discharged home today. #2 Chronic and ongoing tobacco dependence. #3 Benign prosthetic hypertrophy. #4 suspect some component of cor pulmonale, improving and is mostly secondary to chronic obstructive lung disease. Recommendation: Cleared for discharge today, patient could be discharged on prednisone burst and taper 30 mg tapered over 16 days as noted above, albuterol with Atrovent updrafts 4 times a day when necessary, and Symbicort 160/4.52 puffs twice a day. Also on antibiotics for a fair Levaquin 500 mg daily for 7 days. Reevaluate in the office. Patient apparently has an appointment with me on the . Time with Patient: Less than 30
[2017-02-09 11:50] VITALS: BP 122/66
[2017-02-09 11:51] LABS: Glucose,Whole Blood 133 mg/dL (75-99)
[2017-02-09 12:48] LABS: Anion Gap 7 mmol/L; Blood Urea Nitrogen 10 mg/dL (9-20); Calcium 7.7 mg/dL (8.4-10.2); Carbon Dioxide 25 mmol/L (22-30); Chloride 105 mmol/L (98-107); Glucose 123 mg/dL (74-99); Non-African American GFR(MDRD) >60 (>60 ml/min/1.73 sqM); Potassium 3.3 mmol/L (3.5-5.1); Sodium 137 mmol/L (137-145)
[2017-02-09] MEDS ORDERED: POTASSIUM CHLORIDE ER 20 MEQ TAB.ER PO STA (13:03)
[2017-02-09 13:24] VITALS: PULSE 80
--- NOTE | 2017-02-10 08:55 | DS ---
DATE OF ADMISSION: 02/06/2017 DATE OF DISCHARGE: 02/09/2017 FINAL DIAGNOSES: 1. Acute severe chronic obstructive pulmonary disease exacerbation in a smoker. 2. Chronic nicotine dependence. Patient is a smoker. 3. Possible cor pulmonale acute exacerbation from underlying chronic obstructive pulmonary disease, present on admission. 4. Benign prostatic hypertrophy. 5. Macrocytic anemia from chronic alcoholism. 6. Chronic alcohol dependence. 7. Severe hypokalemia. HOSPITAL COURSE: This patient is a smoker. Presented with COPD exacerbation and also some element of cor pulmonale. Patient was counseled repeatedly about cessation of smoking. Doing better at the time of discharge. Potassium had come up to 3.3. On exam, LUNGS: Decreased breath sounds. PSYCH: Alert and oriented x3. CONSULTATIONS: Dr. Cross from pulmonary. DISCHARGE MEDICATIONS: 1. Symbicort 80/4.5, 2 puffs daily. 2. Flonase 2 sprays each nostril daily p.r.n. 3. Dulera 100/5, 2 puffs b.i.d. 4. Flomax 0.4 q.h.s. 5. Ventolin HFA 1 to 2 puffs q.6 p.r.n. 6. Valium taper. 7. Atrovent HFA 2 puffs q.i.d. 8. Lopressor 25 p.o. b.i.d. 9. Nicotine patch. 10. Prednisone taper. Follow-up with Dr. Cross in one week. Follow up Dr. Gordon in one week. BMP in 3 days. Discharge planning more than 35 minutes. RADHA stockings to be worn.
== END 2017-02-09 13:41 | disposition home or self-care (01) | DRG 192 ==
LOC: EC 15:42 → 6SEL 18:50
PROVIDERS: ADMIT Hospitalist; ATTEND Hospitalist
DX: J44.1 Chronic obstructive pulmonary disease with (acute) exacerbation (principal); I27.81 Cor pulmonale (chronic); D69.6 Thrombocytopenia, unspecified; E83.42 Hypomagnesemia; N40.0 Benign prostatic hyperplasia without lower urinary tract symptoms; D53.9 Nutritional anemia, unspecified; F10.20 Alcohol dependence, uncomplicated; E87.6 Hypokalemia; F17.200 Nicotine dependence, unspecified, uncomplicated; Z79.51 Long term (current) use of inhaled steroids; Z79.899 Other long term (current) drug therapy
CPT/HCPCS: 36415; 71020; 80048; 80053; 82550; 82553; 83735; 83880; 84484; 85025; 85610; 85730; 93005; 94640; 94760; 96365; 96366; 96368; 96375; 99291

== ENCOUNTER 2017-02-10 19:14 | Inpatient (IN) | payer BC ==
[2017-02-10] MEDS ORDERED: FUROSEMIDE 10 MG/ML 2 ML VIAL IV STA (21:12)
--- NOTE | 2017-02-10 21:17 | ED ---
General Adult HPI - General Chief complaint: Extremity Problem,Nontraumatic Stated complaint: Recheck swelling legs/ankles Time Seen by Provider: 02/10/17 20:45 Source: patient, RN notes reviewed Mode of arrival: ambulatory Limitations: no limitations - History of Present Illness Initial comments: This is a 61-year-old male who comes in the emergency department because he has swelling in his legs all up to his abdomen. Patient states he was just admitted to the hospital for the swelling and some L excellent abnormalities he was released a couple days ago. Patient states the swelling has come back with a vengeance. Patient states this is worse than it was when he was admitted last time. Patient denies any difficulty breathing. Patient denies chest pain or palpitations. Patient states he was a heavy drinker and smoker prior to his last hospital admission a few days ago and he has since quit. Patient denies any abdominal pain. Patient denies any nausea or vomiting. Patient denies any headache patient denies numbness weakness. Patient denies any lightheadedness dizziness or near syncopal episode. Patient complains of swelling is progressively moving up his body. - Related Data Home Medications Medication Instructions Recorded Confirmed Fluticasone Nasal [place] [Flonase 2 spr EA NOSTRIL DAILY PRN 02/06/17 02/10/17 Nasal [place]] Tamsulosin [Flomax] 0.4 mg PO HS 02/06/17 02/10/17 Albuterol Inhaler [Ventolin Hfa 1 - 2 puff INHALATION RT-Q6H PRN 02/10/17 Inhaler] Diazepam [Valium] 5 mg PO Q12H PRN 02/10/17 02/10/17 Ipratropium [place] [Atrovent Hfa] 2 puff INHALATION RT-QID 02/10/17 02/10/17 Previous Rx's Medication Instructions Recorded Metoprolol Tartrate [Lopressor] 25 mg PO BID #60 tab 02/09/17 Nicotine 21Mg/24Hr Patch [Habitrol] 1 patch TRANSDERM DAILY #14 patch 02/09/17 predniSONE 10 mg PO DAILY #30 tab 02/09/17 Allergies Allergy/AdvReac Type Severity Reaction Status Date / Time No Known Allergies Allergy Verified 02/10/17 20:58 Review of Systems ROS Statement: Those systems with pertinent positive or pertinent negative responses have been documented in the HPI. ROS Other: All systems not noted in ROS Statement are negative. Past Medical History Past Medical History: COPD, Prostate Disorder History of Any Multi-Drug Resistant Organisms: None Reported Past Surgical History: No Surgical Hx Reported Past Anesthesia/Blood Transfusion Reactions: Unable to Obtain Additional Past Anesthesia/Blood Transfusion Reaction / Comment(s): patient has not received blood or anesthetic Past Psychological History: No Psychological Hx Reported Smoking Status: Current every day smoker Past Alcohol Use History: Daily Past Drug Use History: None Reported General Exam - General Exam Comments Initial Comments: GENERAL: Patient is well-developed and well-nourished. Patient is nontoxic and well- hydrated and is in mild distress. ENT: Neck is soft and supple. No significant lymphadenopathy is noted. Oropharynx is clear. Moist mucous membranes. Neck has full range of motion without eliciting any pain. EYES: The sclera were anicteric and conjunctiva were pink and moist. Extraocular movements were intact and pupils were equal round and reactive to light. Eyelids were unremarkable. PULMONARY: Patient has diminished breath sounds bilateral bases CARDIOVASCULAR: There is a regular rate and rhythm without any murmurs gallops or rubs. ABDOMEN: Soft and nontender with normal bowel sounds. No palpable organomegaly was noted. There is no palpable pulsatile mass. SKIN: Skin is clear with no lesions or rashes and otherwise unremarkable. NEUROLOGIC: Patient is alert and oriented x3. Cranial nerves II through XII are grossly intact. Motor and sensory are also intact. Normal speech, volume and content. Symmetrical smile. MUSCULOSKELETAL: Normal extremities with adequate strength and full range of motion. 2+ edema up his legs into his thighs and edema into his abdomen. LYMPHATICS: No significant lymphadenopathy is noted PSYCHIATRIC: Normal psychiatric evaluation. Limitations: no limitations Course Vital Signs 02/10/17 02/10/17 19:31 21:28 Temperature 98.3 F 98.1 F Pulse Rate 61 60 Respiratory 16 18 Rate Blood Pressure 187/92 176/89 O2 Sat by Pulse 93 L 97 Oximetry Medical Decision Making - Medical Decision Making EKG shows normal sinus rhythm at 61 bpm RI interval 130 QRS is 82 QT intervals 432 QTC is 434. Patient's EKG shows no ST segment elevation or depression or T wave abnormalities are noted Chest x-ray shows a new pleural effusion on the left side from the last visit. I spoke with Dr. Alexander admitted the patient I gave the patient some Lasix I consult cardiology and I wrote admitting orders. - Lab Data Result diagrams: 02/10/17 21:30 02/10/17 21:30 Lab Results 02/10/17 02/10/17 02/10/17 Range/Units 21:30 21:30 21:30 WBC 8.5 (3.8-10.6) k/uL RBC 3.19 L (4.30-5.90) m/uL Hgb 12.0 L (13.0-17.5) gm/dL Hct 35.9 L (39.0-53.0) % MCV 112.6 H (80.0-100.0) fL MCH 37.5 H (25.0-35.0) pg MCHC 33.3 (31.0-37.0) g/dL RDW 16.3 H (11.5-15.5) % Plt Count 257 (150-450) k/uL PT (9.0-12.0) sec INR (<1.1) APTT (22.0-30.0) sec Sodium 135 L (137-145) mmol/L Potassium 4.1 (3.5-5.1) mmol/L Chloride 104 (98-107) mmol/L Carbon Dioxide 26 (22-30) mmol/L Anion Gap 5 mmol/L BUN 12 (9-20) mg/dL Creatinine 0.52 L (0.66-1.25) mg/dL Est GFR (MDRD) Af Amer >60 (>60 ml/min/1.73 sqM) Est GFR (MDRD) Non-Af >60 (>60 ml/min/1.73 sqM) Glucose 123 H (74-99) mg/dL Calcium 8.1 L (8.4-10.2) mg/dL Magnesium 1.9 (1.6-2.3) mg/dL Total Bilirubin 0.6 (0.2-1.3) mg/dL AST 112 H (17-59) U/L ALT 52 (21-72) U/L Alkaline Phosphatase 102 (38-126) U/L Total Creatine Kinase 44 L (55-170) U/L CK-MB (CK-2) 1.0 (0.0-2.4) ng/mL CK-MB (CK-2) Rel Index 2.3 Troponin I <0.012 (0.000-0.034) ng/mL NT-Pro-B Natriuret Pep pg/mL Total Protein 5.4 L (6.3-8.2) g/dL Albumin 2.9 L (3.5-5.0) g/dL 02/10/17 02/10/17 Range/Units 21:30 21:30 WBC (3.8-10.6) k/uL RBC (4.30-5.90) m/uL Hgb (13.0-17.5) gm/dL Hct (39.0-53.0) % MCV (80.0-100.0) fL MCH (25.0-35.0) pg MCHC (31.0-37.0) g/dL RDW (11.5-15.5) % Plt Count (150-450) k/uL PT 9.6 (9.0-12.0) sec INR 0.9 (<1.1) APTT 21.6 L (22.0-30.0) sec Sodium (137-145) mmol/L Potassium (3.5-5.1) mmol/L Chloride (98-107) mmol/L Carbon Dioxide (22-30) mmol/L Anion Gap mmol/L BUN (9-20) mg/dL Creatinine (0.66-1.25) mg/dL Est GFR (MDRD) Af Amer (>60 ml/min/1.73 sqM) Est GFR (MDRD) Non-Af (>60 ml/min/1.73 sqM) Glucose (74-99) mg/dL Calcium (8.4-10.2) mg/dL Magnesium (1.6-2.3) mg/dL Total Bilirubin (0.2-1.3) mg/dL AST (17-59) U/L ALT (21-72) U/L Alkaline Phosphatase (38-126) U/L Total Creatine Kinase (55-170) U/L CK-MB (CK-2) (0.0-2.4) ng/mL CK-MB (CK-2) Rel Index Troponin I (0.000-0.034) ng/mL NT-Pro-B Natriuret Pep 1120 pg/mL Total Protein (6.3-8.2) g/dL Albumin (3.5-5.0) g/dL Disposition Clinical Impression: Anasarca, Pleural effusion Disposition: ADMITTED IP TO THIS [facility] Referrals: Lizbeth Cross MD [Primary Care Provider] - 1-2 days Time of Disposition: 22:48
[2017-02-10 21:42] LABS: Anisocytosis Slight; Basophils % (A) 0 %; CH 37.6; CHCM 33.5; Eosinophils # (A) 0.1 k/uL (0-0.7); Eosinophils % (A) 1 %; HCT 35.9 % (39.0-53.0); HDW 2.62; Luc # (Auto) 0.09; Luc % (Auto) 1; Lymphocytes # (A) 1.2 k/uL (1.0-4.8); Lymphocytes % (A) 14 %; MCH 37.5 pg (25.0-35.0); MCHC 33.3 g/dL (31.0-37.0); MCV 112.6 fL (80.0-100.0); Macrocytosis Marked; Mean Platelet Volume 7.1; Monocytes # (A) 0.4 k/uL (0-1.0); Monocytes % (A) 5 %; Neutrophils # (A) 6.7 k/uL (1.3-7.7); Neutrophils % (A) 79 %; RBC 3.19 m/uL (4.30-5.90); RDW 16.3 % (11.5-15.5); WBC 8.5 k/uL (3.8-10.6); WBC (Perox) 9.02
--- NOTE | 2017-02-10 21:58 | XR ---
EXAMINATION TYPE: XR chest 2V DATE OF EXAM: 02/10/2017 COMPARISON: 02/06/2017 HISTORY: Difficulty breathing TECHNIQUE: Frontal and lateral views of the chest are obtained. FINDINGS: There is consolidation at the left lung base posteriorly. Heart size is normal. There is n o heart failure. There are no hilar masses. There are chest leads. The bony thorax appears intact. IMPRESSION: There is evidence of new left lower lobe pneumonia and pleural fluid compared to last ex am. No heart failure.
[2017-02-10 21:59] LABS: ALT 52 U/L (21-72); AST 112 U/L (17-59); Alkaline Phosphatase 102 U/L (38-126); Anion Gap 5 mmol/L; Blood Urea Nitrogen 12 mg/dL (9-20); Calcium 8.1 mg/dL (8.4-10.2); Carbon Dioxide 26 mmol/L (22-30); Chloride 104 mmol/L (98-107); Glucose 123 mg/dL (74-99); Magnesium 1.9 mg/dL (1.6-2.3); Non-African American GFR(MDRD) >60 (>60 ml/min/1.73 sqM); Potassium 4.1 mmol/L (3.5-5.1); Sodium 135 mmol/L (137-145); Total Bilirubin 0.6 mg/dL (0.2-1.3); Total Protein 5.4 g/dL (6.3-8.2)
[2017-02-10 22:02] LABS: INR 0.9 (<1.1); Prothrombin Time 9.6 sec (9.0-12.0)
[2017-02-10 22:04] LABS: Creatine Kinase 44 U/L (55-170)
[2017-02-10 22:07] LABS: Partial Thromboplastin Time 21.6 sec (22.0-30.0)
[2017-02-10 22:17] LABS: Troponin I <0.012 ng/mL (0.000-0.034)
[2017-02-10 22:59] LABS: Polychromasia Present
[2017-02-10 23:02] LABS: Manual Review Performed
[2017-02-10] MEDS: FUROSEMIDE 10 MG/ML 4 ML VIAL IV SCH (23:06)
[2017-02-10 23:54] VITALS: BMI 21.7
[2017-02-11] MEDS: FUROSEMIDE 10 MG/ML 4 ML VIAL IV SCH ×3 (02:29→16:33)
[2017-02-11] MEDS: NITROGLYCERIN OINT 1 INCH/GM PACKET TOPICAL SCH ×2 (08:44→12:32)
[2017-02-11] MEDS ORDERED: DIAZEPAM 5 MG TAB PO PRN (09:41)
[2017-02-11] MEDS ORDERED: FLUTICASONE 50MCG/SPRAY NASAL 16GM EA NOSTRIL PRN (09:41)
[2017-02-11 10:24] LABS: Anion Gap 8 mmol/L; Blood Urea Nitrogen 11 mg/dL (9-20); Carbon Dioxide 29 mmol/L (22-30); Chloride 103 mmol/L (98-107); Glucose 117 mg/dL (74-99); Non-African American GFR(MDRD) >60 (>60 ml/min/1.73 sqM); Potassium 3.3 mmol/L (3.5-5.1); Sodium 140 mmol/L (137-145)
[2017-02-11] MEDS: METOPROLOL TARTRATE 25 MG TAB PO SCH ×2 (10:36→20:13)
[2017-02-11] MEDS: NICOTINE 21MG/24HR PATCH TRANSDERM SCH (10:36)
[2017-02-11] MEDS: predniSONE 10 MG TAB PO SCH (10:36)
[2017-02-11] MEDS: ENOXAPARIN 40 MG/0.4 ML SYRINGE SQ SCH (10:36)
[2017-02-11 10:42] LABS: CH 37.1; CHCM 34.3; HCT 35.1 % (39.0-53.0); HDW 2.75; HGB 11.5 gm/dL (13.0-17.5); MCH 35.5 pg (25.0-35.0); MCHC 32.7 g/dL (31.0-37.0); MCV 108.4 fL (80.0-100.0); Macrocytosis Marked; Mean Platelet Volume 6.5; RBC 3.24 m/uL (4.30-5.90); RDW 15.8 % (11.5-15.5); WBC 7.5 k/uL (3.8-10.6); WBC (Perox) 7.64
--- NOTE | 2017-02-11 11:01 | ECHOF ---
Referral Reason:Anasarca MEASUREMENTS -------- HEIGHT: 170.2 cm WEIGHT: 63.0 kg BP: 140/84 RVIDd: 2.9 cm (< 3.3) IVSd: 1.1 cm (0.6 - 1.1) LVIDd: 5.0 cm (3.9 - 5.3) LVPWd: 1.1 cm (0.6 - 1.1) IVSs: 1.5 cm LVIDs: 4.0 cm LVPWs: 1.8 cm LA Diam: 3.5 cm (2.7 - 3.8) LAESV Index (A-L): 27.83 ml/m Ao Diam: 3.4 cm (2.0 - 3.7) AV Cusp: 2.3 cm (1.5 - 2.6) MV EXCURSION: 24.078 mm (> 18.000) MV EF SLOPE: 94 mm/s (70 - 150) EPSS: 0.3 cm MV E Avi: 0.78 m/s MV DecT: 284 ms MV A Avi: 0.74 m/s MV E/A Ratio: 1.04 RAP: 5.00 mmHg RVSP: 42.35 mmHg FINDINGS -------- Sinus rhythm. This was a technically good study. The left ventricular size is normal. There is borderline concentric left ventricular hypertrophy. Overall left ventricular systolic function is normal with, an EF between 55 - 60 %. The diastolic filling pattern is normal for the age of the patient 12.24. The right ventricle is normal in size and function. Normal LA size by volume 22+/-6 ml/m2. The right atrium is normal in size. Aortic valve is trileaflet and is mildly thickened. Trace amount of aortic regurgitation. Mild mitral annular calcification present. There is trace mitral regurgitation. Mild tricuspid regurgitation present. There is mild pulmonary hypertension. The right ventricular systolic pressure, as measured by Doppler, is 42.35mmHg. The pulmonic valve is normal. The aortic root size is normal. Normal inferior vena cava with normal inspiratory collapse consistent with estimated right atrial pressure of 5 mmHg. The pericardium is normal. CONCLUSIONS -------- 1. Sinus rhythm. 2. Aortic valve is trileaflet and is mildly thickened. 3. Trace amount of aortic regurgitation. 4. Mild mitral annular calcification present. 5. There is trace mitral regurgitation. 6. Mild tricuspid regurgitation present. 7. There is mild pulmonary hypertension. 8. The right ventricular systolic pressure, as measured by Doppler, is 42.35mmHg. 9. The pulmonic valve is normal. 10. The aortic root size is normal. 11. Normal inferior vena cava with normal inspiratory collapse consistent with estimated right atrial pressure of 5 mmHg. 12. This was a technically good study. 13. The pericardium is normal. 14. The left ventricular size is normal. 15. There is borderline concentric left ventricular hypertrophy. 16. Overall left ventricular systolic function is normal with, an EF between 55 - 60 %. 17. The diastolic filling pattern is normal for the age of the patient 12.24 18. The right ventricle is normal in size and function. 19. Normal LA size by volume 22+/-6 ml/m2. 20. The right atrium is normal in size. INDUSTRIAL ENGINEERING ANALYST: Hortencia Rodarte RDCS
[2017-02-11] MEDS ORDERED: IPRATROPIUM-ALBUTEROL 3 ML NEB INHALATION PRN (11:39)
[2017-02-11 11:57] LABS: Add Differential Manual Differential
[2017-02-11 11:59] LABS: Nucleated Red Blood Cells 0 /100 WBC (0-0); Total Cells Counted 100
[2017-02-11] MEDS ORDERED: AZITHROMYCIN 500 MG TAB PO SCH (12:30)
--- NOTE | 2017-02-11 13:44 | P.CRDCN ---
History of Present Illness Consult date: 02/11/17 Requesting physician: Hernan Alexander Consult reason: congestive heart failure Chief complaint: Bilateral leg swelling History of present illness: This is a 61-year-old gentleman with history of COPD, hypertension, nicotine dependence, EtOH use, who very recently was in the hospital with an exacerbation of COPD. Patient states that he went home on Friday, he had some swelling on discharge but after discharge noticed an increasing the amount of swelling all the way up to his abdomen. For this reason he came to the emergency room for further evaluation. EKG on arrival showed a normal sinus rhythm with no acute changes. Chest x-ray revealed evidence of new left lower lobe pneumonia and pleural fluid as compared with prior exam. Echocardiogram with Doppler study was performed which revealed an ejection fraction of 55-60%. Blood pressure 152/90 with a heart rate in the 80s, 95% on room air. Hemoglobin 11.5, platelet count 253. Potassium 3.3, BUN 11, creatinine 0.5. Troponins negative 3. BNP level 1120. BNP level on this recent admission in the 200 range. Patient was initiated on IV Lasix in the emergency room. He has been diuresing well although his weight is not reflective of this. Continues to have significant bilateral peripheral edema to his lower extremities. Past Medical History Past Medical History: COPD, Prostate Disorder History of Any Multi-Drug Resistant Organisms: None Reported Past Surgical History: No Surgical Hx Reported Past Anesthesia/Blood Transfusion Reactions: Unable to Obtain Additional Past Anesthesia/Blood Transfusion Reaction / Comment(s): patient has not received blood or anesthetic Past Psychological History: No Psychological Hx Reported Smoking Status: Current every day smoker Past Alcohol Use History: Daily Past Drug Use History: None Reported - Past Family History Father Family Medical History: No Reported History Medications and Allergies Home Medications Medication Instructions Recorded Confirmed Type Fluticasone Nasal [place] [Flonase 2 spr EA NOSTRIL DAILY PRN 02/06/17 02/10/17 History Nasal [place]] Tamsulosin [Flomax] 0.4 mg PO HS 02/06/17 02/10/17 History Albuterol Inhaler [Ventolin Hfa 1 - 2 puff INHALATION RT-Q6H PRN 02/10/17 History Inhaler] Diazepam [Valium] 5 mg PO Q12H PRN 02/10/17 02/10/17 History Ipratropium [place] [Atrovent Hfa] 2 puff INHALATION RT-QID 02/10/17 02/10/17 History Allergies Allergy/AdvReac Type Severity Reaction Status Date / Time No Known Allergies Allergy Verified 02/10/17 20:58 Physical Exam Vitals: Vital Signs Temp Pulse Pulse Resp BP BP Pulse Ox 02/11/17 09:59 95 02/11/17 08:00 97.4 F L 87 152/96 94 L 02/11/17 04:00 67 18 140/84 95 02/11/17 00:31 97.8 F 80 18 125/78 94 L 02/11/17 00:29 16 02/10/17 22:47 98.5 F 57 L 16 129/90 94 L 02/10/17 21:28 98.1 F 60 18 176/89 97 02/10/17 19:31 98.3 F 61 16 187/92 93 L Intake and Output 02/10/17 02/11/17 02/11/17 22:59 06:59 14:59 Intake Total 0 240 Output Total 1175 1550 Balance -1175 0 -1310 Intake: IV 0 NS 0 Oral 240 Output: Urine 1175 1550 Other: # Voids 2 Weight 58.513 kg 63.1 kg PHYSICAL EXAMINATION: HEENT: Head is atraumatic, normocephalic. Pupils equal, round. Neck is supple. There is elevated jugular venous pressure. HEART EXAMINATION: Heart S1, S2 normal. No murmur or gallop heard. CHEST EXAMINATION: Lungs reveal scattered coarse wheezes throughout with decreased air entry to bilateral bases. ABDOMEN: Soft, nontender. Bowel sounds are heard. No organomegaly noted. EXTREMITIES: 2+ peripheral pulses with 2+ evidence of peripheral edema and no calf tenderness noted. NEUROLOGIC patient is awake, alert and oriented -3. . Results 02/11/17 09:38 02/11/17 09:38 Cardiac Enzymes 02/10/17 02/10/17 02/11/17 Range/Units 21:30 21:30 03:15 AST 112 H (17-59) U/L CK-MB (CK-2) 1.0 (0.0-2.4) ng/mL Troponin I <0.012 <0.012 (0.000-0.034) ng/mL 02/11/17 Range/Units 09:38 AST (17-59) U/L CK-MB (CK-2) (0.0-2.4) ng/mL Troponin I <0.012 (0.000-0.034) ng/mL Coagulation 02/10/17 Range/Units 21:30 PT 9.6 (9.0-12.0) sec APTT 21.6 L (22.0-30.0) sec CBC 02/10/17 02/11/17 Range/Units 21:30 09:38 WBC 8.5 7.5 (3.8-10.6) k/uL RBC 3.19 L 3.24 L (4.30-5.90) m/uL Hgb 12.0 L 11.5 L (13.0-17.5) gm/dL Hct 35.9 L 35.1 L (39.0-53.0) % Plt Count 257 253 (150-450) k/uL Comprehensive Metabolic Panel 02/10/17 02/11/17 Range/Units 21:30 09:38 Sodium 135 L 140 (137-145) mmol/L Potassium 4.1 3.3 L (3.5-5.1) mmol/L Chloride 104 103 (98-107) mmol/L Carbon Dioxide 26 29 (22-30) mmol/L BUN 12 11 (9-20) mg/dL Creatinine 0.52 L 0.58 L (0.66-1.25) mg/dL Glucose 123 H 117 H (74-99) mg/dL Calcium 8.1 L 8.0 L (8.4-10.2) mg/dL AST 112 H (17-59) U/L ALT 52 (21-72) U/L Alkaline Phosphatase 102 (38-126) U/L Total Protein 5.4 L (6.3-8.2) g/dL Albumin 2.9 L (3.5-5.0) g/dL Current Medications Generic Name Dose Route Start Last Admin Trade Name Freq PRN Reason Stop Dose Admin Albuterol/Ipratropium 3 ml 02/11/17 11:39 Duoneb 0.5 Mg-3 Mg/3 Ml Soln INHALATION RT-TID PRN Shortness Of Breath Or Wheezing Albuterol/Ipratropium 3 ml 02/11/17 13:00 Duoneb 0.5 Mg-3 Mg/3 Ml Soln INHALATION RT-TID ALLIE Azithromycin 500 mg 02/11/17 12:30 02/11/17 12:32 Zithromax PO 500 mg DAILY ALLIE Administration Budesonide/Formoterol Fumarate 2 puff 02/11/17 20:00 Symbicort 160-4.5 Mcg Inhaler INHALATION RT-BID [facility] Diazepam 5 mg 02/11/17 09:41 Valium PO Q12H PRN Withdrawal Sx Enoxaparin Sodium 40 mg 02/11/17 09:45 02/11/17 10:36 Lovenox SQ 40 mg DAILY ALLIE Administration Fluticasone Propionate 2 spray 02/11/17 09:41 Flonase Nasal [place] EA NOSTRIL DAILY PRN Nasal Congestion Furosemide 20 mg 02/11/17 00:00 02/11/17 08:44 Lasix IV 20 mg Q8HR ALLIE Administration Metoprolol Tartrate 25 mg 02/11/17 09:45 02/11/17 10:36 Lopressor PO 25 mg BID ALLIE Administration Nicotine 1 patch 02/11/17 09:45 02/11/17 10:36 Habitrol 21mg/24hr Patch TRANSDERM 1 patch DAILY ALLIE Administration Nitroglycerin 1 inch 02/11/17 09:00 02/11/17 12:32 Nitro-Bid Oint TOPICAL 1 inch QID ALLIE Administration Prednisone 10 mg 02/11/17 09:45 02/11/17 10:36 PO 10 mg DAILY ALLIE Administration Tamsulosin HCl 0.4 mg 02/11/17 21:00 Flomax PO HS [facility] Intake and Output 02/10/17 02/11/17 02/11/17 22:59 06:59 14:59 Intake Total 0 240 Output Total 1175 1550 Balance -1175 0 -1310 Intake: IV 0 NS 0 Oral 240 Output: Urine 1175 1550 Other: # Voids 2 Weight 58.513 kg 63.1 kg 02/11/17 09:38 02/11/17 09:38 EKG Interpretations (text) EKG shows normal sinus rhythm with no acute changes. Assessment and Plan Plan: Assessment and plan #1 diastolic congestive heart failure acute on chronic #2 COPD with recent exacerbation #3 nicotine dependence #4 EtOH use #5 hypertension Plan From cardiology's perspective, we will recommend to continue current dose of IV Lasix. Continue to monitor accurate intake and output and daily weights.
--- NOTE | 2017-02-11 14:09 | P.PN ---
Progress Note - Text This is an addendum to the dictated cardiology consultation. The patient has a known history of severe COPD, history of chronic tobacco and alcohol intake was in the hospital recently with exacerbation of COPD. He was discharged home on a taper down dose of steroids and presents with progressive dyspnea, peripheral edema and evidence of congestive heart failure. He denies any history of chest discomfort or prior cardiac history. On examination he has severe decrease in the air exchange with 2+ peripheral edema. His NT proBNP is elevated and it was normal during last admission. His systolic function in the past was normal. The patient presents with congestive heart failure and preserved systolic function. His fluid retention could be exacerbated by the steroids. He will receive diuresis at this time and depending on his progress further recommendations will be made. Thank you for this consult we will follow with you.
[2017-02-11] MEDS: IPRATROPIUM-ALBUTEROL 3 ML NEB INHALATION SCH ×2 (14:30→19:42)
--- NOTE | 2017-02-11 15:13 | CONS ---
DATE OF CONSULTATION: This is a 61-year-old male who was seen in the emergency room yesterday for lower extremity edema. He came into the emergency department because he had swelling all the way up to his abdomen. He was recently admitted to the hospital for swelling and some fluid in the lungs with some difficulty breathing. That was a couple days back. He was treated with medications and seemed to get better, but more recently came back in with lower extremity edema. He certainly does have 1 to 2+ pitting edema in the lower extremities. Chest x-ray though is relatively clear. There may be a small left-sided pleural effusion and a small infiltrate in the left lower lobe. Nothing real impressive. IN fact the patient really denies any respiratory issues. Denies any shortness breath, chest pain, chest discomfort, cough, wheezing, shortness of breath. Sees my partner for his COPD. His home medications include Flonase nasal spray, Flomax, Ventolin inhaler, Valium, Atrovent inhaler. Previously he was on metoprolol, nicotine patch and some prednisone. ALLERGIES: Negative. Medical history includes COPD. The patient also has a history of BPH. Surgical history is unremarkable. Family history is noncontributory. Social history is positive for ongoing tobacco use. Occupational history is noncontributory. Family history is noncontributory. REVIEW OF SYSTEMS: CONSTITUTIONAL: Negative. NEUROLOGICAL: Negative. HEENT: Negative. CARDIOVASCULAR: Negative. PULMONARY: Negative. GI/: Negative. RHEUMATOLOGICAL/IMMUNOLOGIC: Negative. ENDOCRINOLOGIC: Negative. The only abnormality on the review of systems is lower extremity edema. CURRENT VITAL SIGNS: Temperature 97.4, heart rate 67, respiratory rate 18, blood pressure 125/78, mean 93, room air saturation 95%. Appears in no acute distress. HEENT examination is grossly unremarkable. Mucous membranes are moist. No oral lesions. Neck is supple. Full range of motion. No adenopathy. Cardiovascular examination reveals regular rhythm and rate. S1, S2 normal. No S3, S4. Lungs reveal some very mild expiratory rhonchi. No wheezes or crackles. Abdomen is soft. Bowel sounds are heard. Extremities are intact. There is significant edema, 1 to 2+. It is up to the knee or slightly above that. Skin is without rash. White count 7.5, hemoglobin 11.5, hematocrit 35.1, platelet count 353,000. Sodium 140, potassium 3.3, chloride 103, CO2 of 29, BUN and creatinine were 11 and 0.58. N-terminal proBNP 11,020. Troponins were less than 0.012 x3. Medications are reviewed. ASSESSMENT: 1. Lower extremity edema, presumably from cardiac disease. 2. History of underlying chronic obstructive pulmonary disease. 3. Rule out cor pulmonale, although it does not appear that his chronic obstructive pulmonary disease is that severe. 4. History of benign prostatic hypertrophy. 5. History of chronic obstructive pulmonary disease. PLAN: Medications are reviewed. Optimize his breathing medications although he is not really having breathing issues at this time. We recommend diuretics, daily weights low salt diet. Additional recommendations and suggestions are forthcoming. I am sure he has had an echocardiogram. Right-sided heart function should be evaluated.
[2017-02-11] MEDS: POTASSIUM CHLORIDE ER 20 MEQ TAB.ER PO SCH ×3 (16:33→20:13)
[2017-02-11] MEDS: MAGNESIUM SULFATE-D5W PMX 1 GM in DEXTROSE/WATER 1 100ML.BAG IVPB SCH ×2 (17:18→18:43)
[2017-02-11] MEDS: SYMBICORT 160-4.5 MCG INHALER INHALATION SCH (19:42)
[2017-02-11] MEDS: TAMSULOSIN 0.4 MG CAP.ER.24H PO SCH (20:13)
--- NOTE | 2017-02-11 21:43 | HP ---
DATE OF ADMISSION: 02/10/2017 PRESENTING COMPLAINT: Edema. HISTORY OF PRESENTING COMPLAINT: This is a 61-year-old patient who was just recently discharged from the hospital on 02/09/17. Patient at that time was admitted with COPD exacerbation. Patient has been a smoker; had electrolyte abnormalities; was doing rather well. Patient was doing well at home for a few days, starting eating quite a bit, per the daughter, and progressively noticed that he started swelling up in the lower extremities and hence presented. There was some shortness of breath but no wheezing. Denied any fever. Minimal cough. REVIEW OF SYSTEMS: CONSTITUTIONAL: Tired. HEENT: None. RESPIRATORY: As above. CARDIOVASCULAR: As above. GASTROINTESTINAL: Heartburn. GENITOURINARY: None. MUSCULOSKELETAL: Pain in the joints. DERMATOLOGIC: None. HEMATOLOGIC: None. LYMPHATICS: None. PSYCHIATRY: None. NEUROLOGICAL: None. PAST MEDICAL HISTORY: 1. COPD. 2. BPH. PAST SURGICAL HISTORY: None. SOCIAL HISTORY: Patient smoked a pack a day. Living with his son. He was drinking ani everyday until 2 weeks ago. FAMILY HISTORY: Reviewed; noncontributory to presentation. HOME MEDICATIONS: 1. Prednisone 10 mg a day. 2. Flomax 0.4 mg at bedtime. 3. Nicotine patch. 4. Lopressor 25 p.o. b.i.d. 5. Atrovent HFA 2 puffs q.i.d. 6. Flonase 2 sprays in each nostril p.r.n. 7. Valium 5 mg p.o. q.12 taper. 8. Ventolin HFA 1 to 2 puffs q.6 p.r.n. ALLERGIES: NONE. On examination, temperature 97.4, pulse 87, respiration 16, blood pressure 129/90, pulse ox 94% on room air. GENERAL APPEARANCE: Thin build. Sitting up, tired-appearing. HEENT: Oral cavity normal. EYES: Pupils equal. Conjunctivae normal. NECK: JVD raised. Mass not palpable. RESPIRATORY: Effort increased. LUNGS: Diminished breath sounds. CARDIOVASCULAR: First and second sounds normal. Edema present. ABDOMEN: Soft, nontender. Liver and spleen not palpable. LYMPHATIC: No lymph node palpable in neck or axillae. PSYCHIATRY: Alert and oriented x3. Mood and affect slightly anxious-appearing. NEUROLOGICAL: Pupils equal. Cranial nerves grossly intact. Power and sensation grossly intact. INVESTIGATIONS: White count 8.5, hemoglobin 12. Potassium 4.1. BUN 12, creatinine 0.52. ProBNP 1120. Troponin x3 negative. Chest x-ray shows possible left pleural effusion, some venous prominence. Two-D echo shows preserved LV function; no evidence of right heart failure or right ventricular enlargement. ASSESSMENT: 1. Acute congestive heart failure exacerbation, probably from diastolic dysfunction, ejection fraction 55%, probably from nephrosclerosis. 2. Severe chronic obstructive pulmonary disease in a smoker. 3. Benign prostatic hypertrophy. 4. Macrocytic anemia from chronic alcoholism. PLAN: Care was discussed with the daughter at the bedside. Patient was reminded to keep off alcohol and smoking. Getting IV Lasix. Home medications are resumed. Pulmonary and Cardiology were consulted.
[2017-02-12] MEDS: FUROSEMIDE 10 MG/ML 4 ML VIAL IV SCH ×3 (01:40→16:53)
[2017-02-12 07:02] LABS: Basophils % (A) 0 %; CH 37.1; CHCM 34.3; Eosinophils # (A) 0.2 k/uL (0-0.7); Eosinophils % (A) 2 %; HCT 32.8 % (39.0-53.0); HDW 2.76; Luc # (Auto) 0.12; Luc % (Auto) 2; Lymphocytes # (A) 2.5 k/uL (1.0-4.8); Lymphocytes % (A) 36 %; MCH 36.5 pg (25.0-35.0); MCHC 33.6 g/dL (31.0-37.0); MCV 108.5 fL (80.0-100.0); Macrocytosis Marked; Mean Platelet Volume 7.7; Monocytes # (A) 0.5 k/uL (0-1.0); Monocytes % (A) 8 %; Neutrophils # (A) 3.5 k/uL (1.3-7.7); Neutrophils % (A) 52 %; RBC 3.02 m/uL (4.30-5.90); RDW 15.5 % (11.5-15.5); WBC 6.7 k/uL (3.8-10.6); WBC (Perox) 7.03
[2017-02-12] MEDS: IPRATROPIUM-ALBUTEROL 3 ML NEB INHALATION SCH ×3 (07:15→20:21)
[2017-02-12] MEDS: SYMBICORT 160-4.5 MCG INHALER INHALATION SCH ×2 (07:15→20:21)
[2017-02-12 08:08] LABS: Anion Gap 4 mmol/L; Calcium 7.6 mg/dL (8.4-10.2); Carbon Dioxide 29 mmol/L (22-30); Chloride 105 mmol/L (98-107); Glucose 97 mg/dL (74-99); Non-African American GFR(MDRD) >60 (>60 ml/min/1.73 sqM); Sodium 138 mmol/L (137-145)
[2017-02-12 08:12] LABS: Blood Urea Nitrogen 15 mg/dL (9-20); Potassium 5.2 mmol/L (3.5-5.1)
[2017-02-12] MEDS: NICOTINE 21MG/24HR PATCH TRANSDERM SCH (08:47)
[2017-02-12] MEDS: predniSONE 10 MG TAB PO SCH (08:47)
[2017-02-12] MEDS: ENOXAPARIN 40 MG/0.4 ML SYRINGE SQ SCH (08:47)
[2017-02-12] MEDS: METOPROLOL TARTRATE 25 MG TAB PO SCH ×2 (08:49→21:02)
--- NOTE | 2017-02-12 10:50 | P.PN ---
Subjective Progress note dated 02/12/2017 This is a 61-year-old male who I saw yesterday in consultation. He came into the emergency department with complaints of lower extremity edema which has improved. The edema passed up on the way through his legs and lower abdomen. The patient really did not have any respiratory complaints. He was not short of breath. No chest pain chest discomfort no chest congestion. The patient's edema has improved. He thinks he probably will be discharged in next day or so. Feels that his legs are improved. Still has 1+ pitting edema though. But it is improved. Most of the edema and the lower abdominal dominant area as well as the upper leg area has improved. He does have a history which includes COPD as well as BPH. Objective - Vital Signs Vital signs: Vital Signs Temp 98.1 F 02/12/17 08:00 Pulse 81 02/12/17 08:00 Resp 20 02/12/17 08:00 BP 138/81 02/12/17 08:00 Pulse Ox 90 L 02/12/17 08:00 Intake & Output 02/11/17 02/12/17 02/12/17 18:59 06:59 18:59 Intake Total 920 100 Output Total 1850 550 Balance -930 100 -550 Weight 63.1 kg 61.6 kg Intake: IV 100 Magnesium Sulfate-D5w Pmx 100 1 gm In Dextrose/Water 1 100ml.bag @ 100 mls/hr IVPB Q1H ALLIE Rx#: [id number] Intake, IV Titration 200 Amount Magnesium Sulfate-D5w Pmx 200 1 gm In Dextrose/Water 1 100ml.bag @ 100 mls/hr IVPB Q1H ALLIE Rx#: [id number] Oral 720 Output: Urine 1850 550 Other: # Voids 1 2 - Exam No acute distress, oriented 3. HEENT examination is grossly unremarkable. Mucous membranes are moist. No oral lesions. Neck supple. Full range of motion. No adenopathy or thyromegaly. Cardiovascular examination reveals regular rhythm rate. S1-S2 normal. No murmur. No S3-S4. Lungs reveal relatively clear but diminished breath sounds. No wheezes rhonchi or crackles. No other adventitious lung sounds. Abdomen soft bowel sounds are heard. No abdominal wall edema. Bowel sounds are noted. No masses. Extremities reveal residual 1+ pitting edema. It is improved. Skin without rash. Neurologic examination is nonfocal. - Labs CBC & Chem 7: 02/12/17 05:43 02/12/17 05:43 Labs: Abnormal Lab Results - Last 24 Hours (Table) 02/11/17 02/12/17 02/12/17 Range/Units 09:38 05:43 05:43 RBC 3.24 L 3.02 L (4.30-5.90) m/uL Hgb 11.5 L 11.0 L (13.0-17.5) gm/dL Hct 35.1 L 32.8 L (39.0-53.0) % MCV 108.4 H 108.5 H (80.0-100.0) fL MCH 35.5 H 36.5 H (25.0-35.0) pg RDW 15.8 H (11.5-15.5) % Potassium 5.2 H (3.5-5.1) mmol/L Calcium 7.6 L (8.4-10.2) mg/dL Assessment and Plan (1) Lower extremity edema Status: Acute (2) COPD (chronic obstructive pulmonary disease) Status: Acute (3) Smoking addiction Status: Acute (4) Anasarca Status: Acute (5) Pleural effusion Status: Acute Plan: Plan dated 02/12/2017 The patient continues to show improvement. His lower extremity edema has improved. No respiratory issues at this time. I review of systems I reviewed his chest x-ray. He did have a small left-sided pleural effusion. Not with draining or anything like that. Again the patient is completely devoid of any pulmonary complaints. The patient will continue to improve. We counseled about the importance of smoking cessation. He understands. I make sure that his pulmonary medications were appropriate. Time with Patient: Less than 30
--- NOTE | 2017-02-12 15:08 | P.PN ---
Subjective Principal diagnosis: Bilateral leg swelling Is a 61-year-old gentleman with known history of hypertension, nicotine dependence, EtOH use, COPD, who presented to the hospital with symptoms of significant swelling. Echo cardiac gram with Doppler study was performed which revealed normal left ventricular systolic function. Patient has been diuresing well on IV Lasix, his weight is down 2 kg today. He continues to have peripheral edema in his lower extremities however much improved from his admission here. Potassium today 5.2, creatinine 0.7. Blood pressure 138/80 with a heart rate in the 60s. Objective - Vital Signs Vital signs: Vital Signs Temp 98 F 02/12/17 11:46 Pulse 68 02/12/17 14:15 Resp 20 02/12/17 11:46 BP 139/83 02/12/17 11:46 Pulse Ox 93 L 02/12/17 11:46 Intake & Output 02/11/17 02/12/17 02/12/17 18:59 06:59 18:59 Intake Total 920 100 180 Output Total 1850 550 Balance -930 100 -370 Weight 63.1 kg 61.6 kg Intake: IV 100 Magnesium Sulfate-D5w Pmx 100 1 gm In Dextrose/Water 1 100ml.bag @ 100 mls/hr IVPB Q1H ALLIE Rx#: [id number] Intake, IV Titration 200 Amount Magnesium Sulfate-D5w Pmx 200 1 gm In Dextrose/Water 1 100ml.bag @ 100 mls/hr IVPB Q1H ALLIE Rx#: [id number] Oral 720 180 Output: Urine 1850 550 Other: # Voids 1 2 - Exam PHYSICAL EXAMINATION: HEENT: Head is atraumatic, normocephalic. Pupils equal, round. Neck is supple. There is no elevated jugular venous pressure. HEART EXAMINATION: Heart S1, S2 normal. No murmur or gallop heard. CHEST EXAMINATION: Lungs reveal improvement in air entry bilaterally. ABDOMEN: Soft, nontender. Bowel sounds are heard. No organomegaly noted. EXTREMITIES: 2+ peripheral pulses with trace to 1+ edema in the right lower extremity, 1+ to 2+ edema in the left lower extremity . NEUROLOGIC patient is awake, alert and oriented -3.] . - Labs CBC & Chem 7: 02/12/17 05:43 02/12/17 05:43 Labs: Abnormal Lab Results - Last 24 Hours (Table) 02/12/17 02/12/17 Range/Units 05:43 05:43 RBC 3.02 L (4.30-5.90) m/uL Hgb 11.0 L (13.0-17.5) gm/dL Hct 32.8 L (39.0-53.0) % MCV 108.5 H (80.0-100.0) fL MCH 36.5 H (25.0-35.0) pg Potassium 5.2 H (3.5-5.1) mmol/L Calcium 7.6 L (8.4-10.2) mg/dL Assessment and Plan Plan: Assessment and plan #1 diastolic congestive heart failure acute on chronic #2 COPD with recent exacerbation #3 nicotine dependence #4 EtOH use #5 hypertension Plan From cardiology's perspective, we will recommend to continue current dose of IV Lasix. Continue to monitor accurate intake and output and daily weights. Patient continues to diurese well plan on possibly changing over to oral diuretics in the next 24-48 hours. DNP note has been reviewed, I agree with a documented findings and plan of care. Patient was seen and examined.
[2017-02-12] MEDS: TAMSULOSIN 0.4 MG CAP.ER.24H PO SCH (21:02)
[2017-02-13] MEDS: FUROSEMIDE 10 MG/ML 4 ML VIAL IV SCH ×2 (06:43→08:37)
--- NOTE | 2017-02-13 08:19 | PN ---
DATE OF SERVICE: 02/12/2017 This 61-year-old gentleman who was admitted with congestive heart failure acute exacerbation is being closely monitored. Patient also had COPD as well. Dr. Christensen is following the patient closely as well as Cardiology. The shortness of breath is mildly improving at this time. The patient also had bilateral lower extremity edema as well. Diastolic congestive heart failure was considered. PAST MEDICAL HISTORY: Reviewed. REVIEW OF SYSTEMS: CARDIOVASCULAR: No angina or palpitations. RESPIRATORY: As mentioned earlier. GASTROINTESTINAL: No nausea or vomiting. : No dysuria. Nervous system: No numbness, weakness. Current medications: 1. Albuterol 3 mL t.i.d. and p.r.n. 2. Symbicort 160/4.5, 2 puffs daily. 3. Valium 5 mg b.i.d. 4. Lovenox 40 mg subcu daily. 5. Lasix 20 mg IV q.8. 6. Flonase. 7. Lopressor 25 mg p.o. b.i.d. 8. Habitrol 21. 9. Prednisone 20 daily. 10. Flomax 0.4 daily. PHYSICAL EXAMINATION: The patient is alert and oriented times three. Pulse 69, blood pressure 126/77, respirations 20, temperature normal, pulse ox 95% on room air. HEENT: Conjunctivae normal. Oral mucosa moist. NECK: No jugular venous distention. No carotid bruit. No lymph node enlargement. CARDIOVASCULAR SYSTEM: S1, S2 muffled. No S3, no S4. RESPIRATORY: Breath sounds diminished at the bases. Scattered rhonchi, no crackles. ABDOMEN: Soft. Nontender. No mass palpable. LEGS: No edema. No swelling. CENTRAL NERVOUS SYSTEM: Higher functions as mentioned earlier. Moves all four limbs. No focal deficits. LYMPHATICS: No lymph nodes palpable in the neck, axillae or groin. SKIN: No ulcer, rash or bleeding. LABS: WBC 6.6, hemoglobin 11, MCV 108, potassium 5.2, calcium 7.6. ASSESSMENT: 1. Congestive heart failure acute exacerbation, acute on chronic diastolic dysfunction, ejection fraction 55%. 2. Chronic obstructive pulmonary disease, severe. 3. History of nicotine dependence. 4. History of benign prostatic hypertrophy. 5. Macrocytic anemia from chronic alcohol intake. 6. Bilateral leg swelling and anasarca. 7. Pleural effusion. 8. Increased random blood sugar. 9. Hypoalbuminemia with mild to moderate protein calorie malnutrition. 10. Hyponatremia present on admission. 11. FULL CODE. RECOMMENDATIONS AND DISCUSSION: In this 61-year-old gentleman who presented with multiple complex medical issues, we will monitor the patient closely, continue with the diuretics and bronchodilators, continue the rest of medications. Monitor closely. Follow the fluid and electrolytes management. Closely follow with multiple consultants. Guarded prognosis. Further recommendations to follow.
[2017-02-13] MEDS: METOPROLOL TARTRATE 25 MG TAB PO SCH (08:32)
[2017-02-13] MEDS: NICOTINE 21MG/24HR PATCH TRANSDERM SCH (08:33)
[2017-02-13] MEDS: predniSONE 10 MG TAB PO SCH (08:33)
[2017-02-13] MEDS: ENOXAPARIN 40 MG/0.4 ML SYRINGE SQ SCH (08:33)
[2017-02-13] MEDS: IPRATROPIUM-ALBUTEROL 3 ML NEB INHALATION SCH ×2 (08:42→12:08)
[2017-02-13] MEDS: SYMBICORT 160-4.5 MCG INHALER INHALATION SCH (08:42)
[2017-02-13 09:32] VITALS: RESP 18
[2017-02-13 11:33] LABS: Anion Gap 9 mmol/L; Blood Urea Nitrogen 14 mg/dL (9-20); Carbon Dioxide 28 mmol/L (22-30); Chloride 101 mmol/L (98-107); Glucose 174 mg/dL (74-99); Magnesium 1.8 mg/dL (1.6-2.3); Non-African American GFR(MDRD) >60 (>60 ml/min/1.73 sqM); Potassium 4.4 mmol/L (3.5-5.1); Sodium 138 mmol/L (137-145)
[2017-02-13 12:11] VITALS: BP 120/69; TEMP 97
[2017-02-13 12:19] VITALS: PULSE 68
--- NOTE | 2017-02-13 14:42 | P.PN ---
Subjective Principal diagnosis: This is a 61-year-old male who we saw yesterday in consultation. He came into the emergency department with complaints of lower extremity edema which has improved. The edema passed up on the way through his legs and lower abdomen. The patient really did not have any respiratory complaints. He was not short of breath. No chest pain chest discomfort no chest congestion. The patient's edema has improved. He thinks he probably will be discharged in next day or so. Feels that his legs are improved. Still has 1+ pitting edema though. But it is improved. Most of the edema and the lower abdominal dominant area as well as the upper leg area has improved. He does have a history which includes COPD as well as BPH. The patient is seen again today 02/13/2017 in follow-up on the selective care unit. He is awake and alert in no acute distress. He states he is breathing quite a bit easier today as compared to yesterday. His lower extremity edema is improving but not quite cleared. He remains on Lasix 20 mg IV every 8 hours. We've continued him on his bronchodilators and Symbicort as well. He's been up ambulating in the hallway without any acute distress. He is maintaining good O2 saturations in the 90s on room air. He is afebrile. Hemodynamically stable. Objective - Vital Signs Vital signs: Vital Signs Temp 97 F L 02/13/17 12:00 Pulse 68 02/13/17 12:18 Resp 18 02/13/17 12:00 BP 120/69 02/13/17 12:00 Pulse Ox 92 L 02/13/17 12:00 Intake & Output 02/12/17 02/13/17 02/13/17 18:59 06:59 18:59 Intake Total 660 200 Output Total 950 Balance -290 200 Weight 56.7 kg Intake: Oral 660 200 Output: Urine 950 Other: # Voids 1 - Exam No acute distress, oriented 3. HEENT examination is grossly unremarkable. Mucous membranes are moist. No oral lesions. Neck supple. Full range of motion. No adenopathy or thyromegaly. Cardiovascular examination reveals regular rhythm rate. S1-S2 normal. No murmur. No S3-S4. Lungs reveal relatively clear but diminished breath sounds. No wheezes rhonchi or crackles. No other adventitious lung sounds. Abdomen soft bowel sounds are heard. No abdominal wall edema. Bowel sounds are noted. No masses. Extremities reveal residual 1+ pitting edema. It is improved. Skin without rash. Neurologic examination is nonfocal. - Labs CBC & Chem 7: 02/12/17 05:43 02/13/17 11:04 Labs: Abnormal Lab Results - Last 24 Hours (Table) 02/13/17 Range/Units 11:04 Creatinine 0.61 L (0.66-1.25) mg/dL Glucose 174 H (74-99) mg/dL Calcium 8.0 L (8.4-10.2) mg/dL Assessment and Plan Plan: Impression: #1 Lower extremity edema secondary to suspected acute exacerbation of diastolic congestive heart failure. #2 Acute exacerbation of chronic obstructive pulmonary disease. #3 Chronic and ongoing tobacco dependence. #4 Benign prosthetic hypertrophy. #5 Macrocytic anemia secondary to chronic alcoholism. #6 Chronic alcoholism. Plan: The patient was seen and evaluated by Dr. Christensen. He is stable from the pulmonary standpoint and could be discharged home later today. He'll continue on his home medications including bronchodilators, Symbicort, prednisone. He is again educated regarding the importance of complete smoking cessation. He is educated regarding the importance of alcohol cessation as well. He would benefit from a follow-up in our office including full pulmonary function testing to evaluate the severity of his COPD and make recommendations for her maintenance medications. The patient is encouraged to call with any worsening of symptoms or other questions or concerns.
[2017-02-13] MEDS ORDERED: FUROSEMIDE 40 MG TAB PO SCH (16:00)
--- NOTE | 2017-02-13 16:00 | P.PN ---
Subjective Principal diagnosis: Bilateral leg swelling Is a 61-year-old gentleman with known history of hypertension, nicotine dependence, EtOH use, COPD, who presented to the hospital with symptoms of significant swelling. Echo cardiac gram with Doppler study was performed which revealed normal left ventricular systolic function. Patient has been diuresing well on IV Lasix, he has been ambulating in the lai most of the day today Objective - Vital Signs Vital signs: Vital Signs Temp 97 F L 02/13/17 12:00 Pulse 68 02/13/17 12:18 Resp 18 02/13/17 12:00 BP 120/69 02/13/17 12:00 Pulse Ox 92 L 02/13/17 12:00 Intake & Output 02/12/17 02/13/17 02/13/17 18:59 06:59 18:59 Intake Total 660 200 Output Total 950 Balance -290 200 Weight 56.7 kg Intake: Oral 660 200 Output: Urine 950 Other: # Voids 1 - Exam PHYSICAL EXAMINATION: HEENT: Head is atraumatic, normocephalic. Pupils equal, round. Neck is supple. There is no elevated jugular venous pressure. HEART EXAMINATION: Heart S1, S2 normal. No murmur or gallop heard. CHEST EXAMINATION: Lungs reveal improvement in air entry bilaterally. ABDOMEN: Soft, nontender. Bowel sounds are heard. No organomegaly noted. EXTREMITIES: 2+ peripheral pulses with trace edema to bilateral extremities. NEUROLOGIC patient is awake, alert and oriented -3.] . - Labs CBC & Chem 7: 02/12/17 05:43 02/13/17 11:04 Labs: Abnormal Lab Results - Last 24 Hours (Table) 02/13/17 Range/Units 11:04 Creatinine 0.61 L (0.66-1.25) mg/dL Glucose 174 H (74-99) mg/dL Calcium 8.0 L (8.4-10.2) mg/dL Assessment and Plan Plan: Assessment and plan #1 diastolic congestive heart failure acute on chronic #2 COPD with recent exacerbation #3 nicotine dependence #4 EtOH use #5 hypertension Plan From cardiology's perspective, his continue the IV Lasix, start the patient on Lasix 40 mg one tablet by mouth twice a day. He may be able to be discharged home today from cardiology's perspective. We will make him a follow-up appointment with Dr. Amaya in the office post discharge. DNP note has been reviewed, I agree with a documented findings and plan of care. Patient was seen and examined.
--- NOTE | 2017-02-14 13:50 | DS ---
DATE OF ADMISSION: 02/10/2017 DATE OF DISCHARGE: 02/13/2017 FINAL DIAGNOSES: 1. Congestive heart failure acute exacerbation with chronic diastolic dysfunction, ejection fraction 55%. 2. Chronic obstructive pulmonary disease, severe. 3. History of nicotine dependence. 4. History of benign prostatic hypertrophy. 5. Macrocytic anemia from chronic alcohol intake. 6. Bilateral leg swelling and anasarca improved. 7. Pleural effusion, secondary from congestive heart failure, improved. 8. Increased random blood sugar. 9. Hypoalbuminemia with mild to moderate protein calorie malnutrition. 10. Hyponatremia present on admission. 11. FULL CODE. DISCHARGE DISPOSITION: The patient will be discharged in stable condition with guarded prognosis. Total time taken: 35 minutes. HISTORY OF PRESENT ILLNESS: This 61 -year-old gentleman with past medical history of multiple medical problems as mentioned earlier being followed by Dr. Cross in the outpatient setting was admitted with shortness of breath and features of congestive heart failure, acute exacerbation. The patient has multiple complex medical issues, was treated symptomatically. Cardiology and pulmonology saw the patient. The patient improved significantly. On exam, vital signs are stable. CARDIOVASCULAR SYSTEM: S1, S2 muffled. RESPIRATORY: A few rhonchi. ABDOMEN: Soft. Nervous system: No focal deficits. DISCHARGE ADVICE AND MEDICATIONS: 1. Diet is cardiac. 2. Activity limited until follow-up. 3. Medications are Ventolin HFA 1 to 2 puffs q.4 p.r.n. 4. Symbicort 160/4.5 two puffs b.i.d. 5. Valium 5 mg p.o. b.i.d. 6. Fluticasone 2 sprays each nostril. 7. Albuterol HFA 2 puffs q.i.d. 8. Lopressor 25 mg p.o. b.i.d. 9. Habitrol 21 daily. 10. Prednisone taper that will be 40 mg daily for 3 days, 30 for 3 days, 20 for 3 days, 10 for 3 days and then stop. 11. Flomax 0.4 q.h.s. Once again, the patient will be discharged in stable condition with guarded prognosis.
== END 2017-02-13 17:33 | disposition home or self-care (01) | DRG 292 ==
LOC: EC 19:14 → 6SEL 22:48
PROVIDERS: ADMIT Hospitalist; ATTEND Hospitalist
DX: I11.0 Hypertensive heart disease with heart failure (principal); E44.0 Moderate protein-calorie malnutrition; E87.1 Hypo-osmolality and hyponatremia; E88.09 Other disorders of plasma-protein metabolism, not elsewhere classified; Z68.1 Body mass index [BMI] 19.9 or less, adult; I50.33 Acute on chronic diastolic (congestive) heart failure; D53.9 Nutritional anemia, unspecified; J44.9 Chronic obstructive pulmonary disease, unspecified; T38.0X5A Adverse effect of glucocorticoids and synthetic analogues, initial encounter; R73.09 Other abnormal glucose; R12 Heartburn; M25.50 Pain in unspecified joint; N40.0 Benign prostatic hyperplasia without lower urinary tract symptoms; F10.20 Alcohol dependence, uncomplicated; F17.200 Nicotine dependence, unspecified, uncomplicated; Z71.3 Dietary counseling and surveillance; Z71.6 Tobacco abuse counseling; Z71.41 Alcohol abuse counseling and surveillance of alcoholic; Z79.51 Long term (current) use of inhaled steroids; Z79.52 Long term (current) use of systemic steroids; Z79.899 Other long term (current) drug therapy
CPT/HCPCS: 36415; 71020; 80048; 80053; 82550; 82553; 83735; 83880; 84484; 85025; 85610; 85730; 93005; 93306; 94640; 96365; 96375; 99285

== ENCOUNTER → 2017-02-18 | Outpatient (CLI) | payer BC ==
[2017-02-18 12:22] LABS: Anion Gap 12 mmol/L; Blood Urea Nitrogen 21 mg/dL (9-20); Calcium 9.5 mg/dL (8.4-10.2); Carbon Dioxide 24 mmol/L (22-30); Chloride 104 mmol/L (98-107); Glucose 109 mg/dL (74-99); Non-African American GFR(MDRD) >60 (>60 ml/min/1.73 sqM); Sodium 140 mmol/L (137-145)
== END | disposition home or self-care (01) ==
LOC: LABWHC1 11:17
PROVIDERS: ATTEND Hospitalist
DX: J44.9 Chronic obstructive pulmonary disease, unspecified (principal)
CPT/HCPCS: 36415; 80048

== ENCOUNTER → 2017-04-10 | Outpatient (CLI) | payer BC ==
--- NOTE | 2017-04-10 09:17 | CT ---
EXAMINATION TYPE: CT soft tissue neck w con DATE OF EXAM: 04/10/2017 HISTORY: Horseness and cough. COMPARISON: Cervical spine CT dated 12/15/2009 CT DLP: 277.1 mGycm. Automated Exposure Control for Dose Reduction was Utilized. TECHNIQUE: CT scan of the neck is performed with IV Contrast, patient injected with 100 mL of Omnipa que 300, axial images are obtained, coronal and sagittal reformatted images are reviewed. FINDINGS: Airway: Inferior to the true and false focal cords there is a low-density area left paracentrally marivel ng the posterior noncartilaginous trachea that appears to be separate from the esophageal mucosa but extends posteriorly to abut the esophagus. This is seen on axial series 3 image 27 and 28. This is se ssile and measures 1.4 cm in transverse dimension. Additionally a subtle hyperattenuated area is seen anteriorly on the true vocal cord on the right singh suring 1.0 x 0.9 mm. Parotid/submandibular glands: No gross abnormality seen. Carotid/Vascular Structures: No significant stenosis. Mild atherosclerosis is seen of the cavernous p ortions of the internal carotid arteries. Osseous Structures: Degenerative disc disease is seen at C5-C6 with a posterior disc osteophyte compl ex. Other: Incidental note is made of a subcentimeter (5 mm) low-density right thyroid nodule. No adenopa thy is present within the neck. At least moderate centrilobular emphysematous changes are seen of the visualized lung apices. IMPRESSION: 1. Low-density sessile area measuring 1.4 cm that is left paracentral along the noncartilaginous post erior trachea just inferior to the vocal cords is seen. Given its low-density this may represent muco us secretions versus a true low-density mass. Direct visualization is recommended. 2. Subtle hyperattenuated lesion on the right anterior true vocal cord measures 1.0 x 0.9 mm. Direct visualization is also recommended for this abnormality. 3. Moderate centrilobular emphysematous changes.
== END | disposition home or self-care (01) ==
LOC: RADCTMAIN 08:12
PROVIDERS: ATTEND Otolaryngology
DX: J38.3 Other diseases of vocal cords (principal); J43.9 Emphysema, unspecified; M79.89 Other specified soft tissue disorders; R49.0 Dysphonia
CPT/HCPCS: 70491; Q9967

== ENCOUNTER → 2017-05-01 | Outpatient (CLI) | payer BC ==
[2017-05-01 15:11] LABS: Anion Gap 11 mmol/L; Blood Urea Nitrogen 18 mg/dL (9-20); Carbon Dioxide 33 mmol/L (22-30); Chloride 95 mmol/L (98-107); Non-African American GFR(MDRD) >60 (>60 ml/min/1.73 sqM); Potassium 3.3 mmol/L (3.5-5.1); Sodium 139 mmol/L (137-145)
== END | disposition home or self-care (01) ==
LOC: LABPAT 13:50
PROVIDERS: ATTEND Otolaryngology
DX: Z01.812 Encounter for preprocedural laboratory examination (principal); I50.9 Heart failure, unspecified
CPT/HCPCS: 80051; 82565; 84520

== ENCOUNTER → 2018-11-06 | Outpatient (CLI) | payer MEDICARE ==
[2018-11-06 11:57] LABS: Basophils % (A) 0 %; Eosinophils # (A) 0.5 k/uL (0-0.7); Eosinophils % (A) 6 %; HCT 44.4 % (39.0-53.0); HGB 14.6 gm/dL (13.0-17.5); Lymphocytes # (A) 2.3 k/uL (1.0-4.8); Lymphocytes % (A) 29 %; MCH 29.7 pg (25.0-35.0); MCHC 32.9 g/dL (31.0-37.0); MCV 90.3 fL (80.0-100.0); Monocytes # (A) 0.5 k/uL (0-1.0); Monocytes % (A) 6 %; Neutrophils # (A) 4.4 k/uL (1.3-7.7); Neutrophils % (A) 57 %; Platelet Count 283 k/uL (150-450); RBC 4.91 m/uL (4.30-5.90); RDW 13.2 % (11.5-15.5); WBC 7.8 k/uL (3.8-10.6)
[2018-11-06 18:25] LABS: Albumin 4.3 g/dL (3.80-4.90); Albumin/Globulin Ratio 2.05 (1.60-3.17); Anion Gap 6.6 mmol/L (4.00-12.00); Calcium 9.3 mg/dL (8.7-10.3); Carbon Dioxide 29.4 mmol/L (21.6-31.8); Globulin 2.1 g/dL (1.6-3.3); LDL Cholesterol,Calculated 128.2 mg/dL (0.0-131.0); Potassium 4.3 mmol/L (3.5-5.5); Total Bilirubin 0.6 mg/dL (0.2-1.2); Total Protein 6.4 g/dL (6.2-8.2); VLDL Calculation 40.8 mg/dL (5.00-40.00)
[2018-11-06 18:32] LABS: T4, Free (Free Thyroxine) 1.3 ng/dL (0.80-1.80)
== END | disposition home or self-care (01) ==
LOC: LABWHC1 11:06
PROVIDERS: ATTEND Internal Medicine
DX: Z00.00 Encounter for general adult medical examination without abnormal findings (principal); C32.9 Malignant neoplasm of larynx, unspecified; J44.9 Chronic obstructive pulmonary disease, unspecified
CPT/HCPCS: 36415; 80053; 80061; 84439; 84443; 85025

== ENCOUNTER → 2021-01-31 | Outpatient (CLI) | payer MEDICARE ==
[2021-01-31 19:18] LABS: Basophils # (A) 0.03 X 10*3/uL (0.00-0.10); Basophils % (A) 0.5 %; Eosinophils # (A) 0.16 X 10*3/uL (0.04-0.35); Eosinophils % (A) 2.5 %; HCT 44.1 % (39.6-50.0); HGB 15.1 g/dL (13.0-17.0); Lymphocytes # (A) 1.67 X 10*3/uL (0.90-5.00); Lymphocytes % (A) 25.7 %; MCH 30.3 pg (27.0-32.0); MCHC 34.2 g/dL (32.0-37.0); MCV 88.4 fL (80.0-97.0); Mean Platelet Volume 8.7 fL (9.5-12.2); Monocytes # (A) 0.58 X 10*3/uL (0.20-1.00); Monocytes % (A) 8.9 %; Neutrophils # (A) 4.04 X 10*3/uL (1.80-7.70); Neutrophils % (A) 62.1 %; Platelet Count 265 X 10*3/uL (140-440); RBC 4.99 X 10*6/uL (4.40-5.60); RDW 12.5 % (11.5-14.5)
[2021-01-31 21:18] LABS: African American GFR (CKD) 89.9 (60.0-200.0); Albumin 4.5 g/dL (3.80-4.90); Albumin/Globulin Ratio 1.8 (1.60-3.17); Calcium 9.6 mg/dL (8.7-10.3); Chol/HDL Ratio 5.18; Globulin 2.5 g/dL (1.6-3.3); LDL Cholesterol,Calculated 136.2 mg/dL (0.0-131.0); Non-African American GFR(CKD) 77.5 (60.0-200.0); Potassium 4.3 mmol/L (3.5-5.5); Total Bilirubin 0.9 mg/dL (0.2-1.2); VLDL Calculation 30.8 mg/dL (5.00-40.00)
[2021-01-31 21:26] LABS: T4, Free (Free Thyroxine) 1.2 ng/dL (0.80-1.80)
== END | disposition home or self-care (01) ==
LOC: LABWHC1 14:42
PROVIDERS: ATTEND Internal Medicine
DX: Z00.00 Encounter for general adult medical examination without abnormal findings (principal); Z12.5 Encounter for screening for malignant neoplasm of prostate; E78.5 Hyperlipidemia, unspecified
CPT/HCPCS: 36415; 80053; 80061; 84153; 84439; 84443; 85025

== ENCOUNTER 2022-07-06 12:42 | Inpatient (IN) | payer MEDICARE ==
[2022-07-06] MEDS ORDERED: IPRATROPIUM-ALBUTEROL 3 ML NEB INHALATION STA ×2 (12:53→16:05)
[2022-07-06] MEDS ORDERED: SODIUM CHLORIDE 0.9% 500 ML 500 ML IV STA ×2 (12:53→18:06)
[2022-07-06] MEDS ORDERED: methylPREDNISolone SOD SUCCI 125 MG/2 ML VIAL IV STA (12:53)
[2022-07-06] MEDS ORDERED: ADENOSINE 3 MG/ML 2 ML VIAL IVP STA ×2 (12:55→13:18)
[2022-07-06] MEDS ORDERED: DILTIAZEM 5 MG/ML 5 ML VIAL IVP STA (13:33)
[2022-07-06 13:35] LABS: ALT 21 U/L (4-49); African American GFR (CKD) >90 (>60 ml/min/1.73 sqM); Anion Gap 15 mmol/L; Blood Urea Nitrogen 16 mg/dL (9-20); Calcium 8.5 mg/dL (8.4-10.2); Carbon Dioxide 20 mmol/L (22-30); Chloride 102 mmol/L (98-107); Glucose 171 mg/dL (74-99); Non-African American GFR(CKD) 89 (>60 ml/min/1.73 sqM); Sodium 137 mmol/L (137-145); Total Bilirubin 2.1 mg/dL (0.2-1.3)
[2022-07-06 13:53] LABS: AST 35 U/L (17-59); Albumin 4.4 g/dL (3.5-5.0); Alkaline Phosphatase 67 U/L (38-126); Magnesium 1.6 mg/dL (1.6-2.3); Potassium 4.6 mmol/L (3.5-5.1); Total Protein 7.4 g/dL (6.3-8.2)
[2022-07-06 13:55] LABS: Partial Thromboplastin Time 24.4 sec (22.0-30.0); Prothrombin Time 10.5 sec (9.0-12.0)
[2022-07-06] MEDS: DILTIAZEM 125 MG in SODIUM CHLORIDE 0.9% 100 ML IV SCH (13:59)
[2022-07-06 14:00] LABS: Basophils # (A) 0.1 k/uL (0-0.2); Basophils % (A) 0 %; Eosinophils % (A) 0 %; HCT 45.8 % (39.0-53.0); Lymphocytes # (A) 0.9 k/uL (1.0-4.8); Lymphocytes % (A) 6 %; MCH 30.6 pg (25.0-35.0); MCV 87.3 fL (80.0-100.0); Mean Platelet Volume 7.4; Monocytes # (A) 0.8 k/uL (0-1.0); Monocytes % (A) 5 %; Neutrophils % (A) 87 %; Platelet Count 269 k/uL (150-450); RBC 5.24 m/uL (4.30-5.90); RDW 12.8 % (11.5-15.5)
[2022-07-06] MEDS ORDERED: SODIUM CHLORIDE 0.9% 1,000 ML IV STA (14:04)
--- NOTE | 2022-07-06 14:31 | XR ---
EXAMINATION TYPE: XR chest 1V portable DATE OF EXAM: 07/06/2022 COMPARISON: 09/28/2020 HISTORY: Short of breath TECHNIQUE: Single view FINDINGS: There is no heart failure nor confluent pneumonic infiltrate. There is pulmonary hyperinfla tion with some flattening of the diaphragm. There are chest leads. Thoracic aorta is atheromatous. IMPRESSION: COPD. No active cardiopulmonary disease. Mild pulmonary fibrotic changes. No significant change.
--- NOTE | 2022-07-06 14:52 | ED ---
General Adult HPI - General Chief complaint: Shortness of Breath Stated complaint: DAVID Time Seen by Provider: 07/06/22 12:50 Source: patient, RN notes reviewed, old records reviewed Mode of arrival: EMS Limitations: no limitations - History of Present Illness Initial comments: Patient is a 66-year-old male with past medical history remarkable for COPD, prostate disorder, laryngeal cancer in remission who presents emergency department for any shortness of breath for multiple days. Decreased relief with breathing treatments. Presents for further evaluation at this time. When the patient presented, he was tachycardic to 160 bpm, hypertensive, with increased work of breathing. States he feels like his normal COPD but states it C seems to be somewhat different. Denies palpitations or chest pain. Denies abdominal pain, nausea, vomiting. Denies any lower extremity edema. Denies any history of blood clots. His no other acute complaints at this time. Presents over concern for possible COPD exacerbation. Denies any fevers or chills. Denies any productive cough. No history of cardiac disease or cardiac stents. No history of fast heart rate such as SVT or atrial fibrillation. - Related Data Home Medications Medication Instructions Recorded Confirmed Albuterol Inhaler [Ventolin Hfa 2 puff INHALATION RT-QID PRN 05/01/17 07/06/22 Inhaler] Fluticasone Propion/Salmeterol 1 puff INHALATION RT-DAILY 07/06/22 07/06/22 [Advair 250-50 Diskus] Ipratropium-Albuterol Nebulize 3 ml INHALATION RT-QID PRN 07/06/22 07/06/22 [Duoneb 0.5 mg-3 mg/3 ml Soln] Omeprazole 20 mg PO DAILY 07/06/22 07/06/22 Simvastatin [Zocor] 20 mg PO HS 07/06/22 07/06/22 Allergies Allergy/AdvReac Type Severity Reaction Status Date / Time No Known Allergies Allergy Verified 07/06/22 16:49 Review of Systems ROS Statement: Those systems with pertinent positive or pertinent negative responses have been documented in the HPI. Review of Systems: CONST: Denies fever EYES: Denies blurry vision ENT: Denies nasal congestion C/V: Denies Chest pain RESP: Endorses shortness of breath GI: Denies abdominal pain : Denies dysuria SKIN: Denies rash. MSK: Denies joint pain. NEURO: Denies headache ROS Other: All systems not noted in ROS Statement are negative. Past Medical History Past Medical History: COPD, Prostate Disorder Additional Past Medical History / Comment(s): HX OF HOARSENESS PAST 2 MONTHS, HX PLEURAL EFFUSION AND EDEMA TO LEGS 01/2017 History of Any Multi-Drug Resistant Organisms: None Reported Past Surgical History: No Surgical Hx Reported Additional Past Surgical History / Comment(s): SX INFANT "CORD STRANGLED BOWEL", HAS HAD TOOTH EXTRACTION WITH ANESTHESIA Past Anesthesia/Blood Transfusion Reactions: Unable to Obtain Additional Past Anesthesia/Blood Transfusion Reaction / Comment(s): patient has not received blood or anesthetic Past Psychological History: No Psychological Hx Reported Smoking Status: Former smoker Past Alcohol Use History: Daily Past Drug Use History: None Reported - Past Family History Father Family Medical History: No Reported History Mother Family Medical History: No Reported History General Exam - General Exam Comments Initial Comments: General: Appears in mild respiratory distress. Slightly increased work of breathing on room air. HEAD: Normal with no signs of head trauma. EYES: PERRLA, EOMI, conjunctiva normal, no discharge. ENT: Hearing grossly intact, normal oropharynx. RESPIRATORY: Reduced breath sounds bilaterally with end expiratory wheezing. Tight lungs.. Increased work of breathing. C/V: Tachycardic with what appears to be a regular rhythm. S1 and S2 a uscultated. Peripheral pulses 2+ intact throughout. No significant pitting edema. ABD: Abd is soft, nontender, nondistended EXT: Normal range of motion, no obvious deformity SKIN: No rashes or lesions observed on exposed skin. NEURO: Alert and Oriented 4. No focal deficits. Limitations: no limitations Course Vital Signs 07/06/22 07/06/22 07/06/22 12:45 12:54 12:59 Temperature 98.7 F Pulse Rate 160 H Respiratory 30 H 28 H Rate Blood Pressure 189/113 O2 Sat by Pulse 97 Oximetry Fraction of 30 Inspired Oxygen (FIO2) 07/06/22 07/06/22 07/06/22 13:05 13:21 14:06 Temperature Pulse Rate 154 H 141 H 125 H Respiratory 18 20 18 Rate Blood Pressure 199/135 172/111 111/94 O2 Sat by Pulse 94 L 97 97 Oximetry Fraction of Inspired Oxygen (FIO2) 07/06/22 07/06/22 07/06/22 14:55 15:11 15:19 Temperature Pulse Rate 138 H 131 H 133 H Respiratory 22 Rate Blood Pressure 167/91 O2 Sat by Pulse 95 Oximetry Fraction of 30 Inspired Oxygen (FIO2) 07/06/22 07/06/22 07/06/22 16:12 16:46 17:30 Temperature Pulse Rate 125 H 131 H 113 H Respiratory 18 18 Rate Blood Pressure 171/99 142/88 O2 Sat by Pulse 94 L 94 L Oximetry Fraction of Inspired Oxygen (FIO2) 07/06/22 07/06/22 07/06/22 18:48 19:01 19:05 Temperature 97.6 F Pulse Rate 116 H 120 H 123 H Respiratory 18 20 Rate Blood Pressure 133/87 O2 Sat by Pulse 93 L 95 Oximetry Fraction of Inspired Oxygen (FIO2) 07/06/22 07/06/22 19:14 19:15 Temperature Pulse Rate 128 H Respiratory Rate Blood Pressure O2 Sat by Pulse Oximetry Fraction of 30 Inspired Oxygen (FIO2) Medical Decision Making - Medical Decision Making Based on the patient's presentation and physical exam, he presents tachycardic with what appears to be a COPD exacerbation. Has some increased work of breathing as well. His wheezing with tight lungs. He was immediately placed on BiPAP. Vital signs otherwise appeared within acceptable limits except for the tachycardia. He was hypertensive as well. EKG was obtained at bedside in trauma bay 1. It revealed appears to be SVT versus possible a flutter. I do believe it is SVT at this time. We did draw labs for cardiopulmonary, inserted the patient a fluid bolus while on BiPAP. He is receiving IV steroids as well as breathing treatments for his COPD exacerbation. We did attempt adenosine which did seem to slow down the patient's heart rate to a sinus rhythm momentarily but was not successful in converting the patient to sinus rhythm. Patient was therefore placed on a Cardizem drip following Cardizem push. EKG obtained following the Cardizem did show a sinus tachycardia. He was placed on a drip. Goal heart rate will be less than 110. Vital signs remained stable. We will await further workup. Multiple EKGs were obtained after each attempt and are documented. EGDs revealed no signs of ischemic process. Laboratory studies are remarkable for leukocytosis of 16 which is likely reactive. D-dimer was elevated to 1.1. Lactate was 2.7 which is likely secondary to his COPD exacerbation and hypoxia. We will monitor. Troponin was undetectable. BNP was within acceptable limits. Covid and flu were negative. Chest x-ray as interpreted by myself reveals no evidence of infiltrate, some evidence of COPD with diaphragm flattening, normal size heart. No other acute cardio pulmonary process. On reevaluation, patient is transition from BiPAP to nasal cannula. He is resting more comfortably at this time. Wheezing is improving. Vital signs remained within acceptable limits. Heart rate is improving. I discussed with him his elevated d-dimer and I would like to obtain a CT PE 12 pulmonary embolus and. He was in agreement this plan. CT PE revealed no evidence of pulmonary embolus. No other acute findings. I updated the patient. At this time I would like to admit the patient. Patient was in agreement this plan. He remained stable at this time. I spoke with the admitting physician, Dr. gifford who accepted the patient. Pulmonology was consulted, the patient's accounting systems analyst Dr. Brito for his COPD e xacerbation. Cardiology was consulted for his SVT on Cardizem.We'll continue to treat his COPD with breathing treatments and IV steroids. We'll continue the titratable Cardizem drip for the svt. - Lab Data Result diagrams: 07/06/22 13:00 07/06/22 13:00 Lab Results 07/06/22 07/06/22 07/06/22 Range/Units 13:00 13:00 13:00 WBC 16.0 H (3.8-10.6) k/uL RBC 5.24 (4.30-5.90) m/uL Hgb 16.0 (13.0-17.5) gm/dL Hct 45.8 (39.0-53.0) % MCV 87.3 (80.0-100.0) fL MCH 30.6 (25.0-35.0) pg MCHC 35.0 (31.0-37.0) g/dL RDW 12.8 (11.5-15.5) % Plt Count 269 (150-450) k/uL MPV 7.4 Neutrophils % 87 % Lymphocytes % 6 % Monocytes % 5 % Eosinophils % 0 % Basophils % 0 % Neutrophils # 14.0 H (1.3-7.7) k/uL Lymphocytes # 0.9 L (1.0-4.8) k/uL Monocytes # 0.8 (0-1.0) k/uL Eosinophils # 0.0 (0-0.7) k/uL Basophils # 0.1 (0-0.2) k/uL PT 10.5 (9.0-12.0) sec INR 1.0 (<1.2) APTT 24.4 (22.0-30.0) sec D-Dimer (<0.60) mg/L FEU Sodium 137 (137-145) mmol/L Potassium 4.6 (3.5-5.1) mmol/L Chloride 102 (98-107) mmol/L Carbon Dioxide 20 L (22-30) mmol/L Anion Gap 15 mmol/L BUN 16 (9-20) mg/dL Creatinine 0.87 (0.66-1.25) mg/dL Est GFR (CKD-EPI)AfAm >90 (>60 ml/min/1.73 sqM) Est GFR (CKD-EPI)NonAf 89 (>60 ml/min/1.73 sqM) Glucose 171 H (74-99) mg/dL Lactic Ac Sepsis Rflx Plasma Lactic Acid Saúl (0.7-2.0) mmol/L Calcium 8.5 (8.4-10.2) mg/dL Magnesium 1.6 (1.6-2.3) mg/dL Total Bilirubin 2.1 H (0.2-1.3) mg/dL AST 35 (17-59) U/L ALT 21 (4-49) U/L Alkaline Phosphatase 67 (38-126) U/L Troponin I (0.000-0.034) ng/mL NT-Pro-B Natriuret Pep pg/mL Total Protein 7.4 (6.3-8.2) g/dL Albumin 4.4 (3.5-5.0) g/dL TSH (0.465-4.680) mIU/L Coronavirus (PCR) (Not Detectd) Influenza Type A RNA (Not Detectd) Influenza Type B (PCR) (Not Detectd) 07/06/22 07/06/22 07/06/22 Range/Units 13:00 13:00 13:00 WBC (3.8-10.6) k/uL RBC (4.30-5.90) m/uL Hgb (13.0-17.5) gm/dL Hct (39.0-53.0) % MCV (80.0-100.0) fL MCH (25.0-35.0) pg MCHC (31.0-37.0) g/dL RDW (11.5-15.5) % Plt Count (150-450) k/uL MPV Neutrophils % % Lymphocytes % % Monocytes % % Eosinophils % % Basophils % % Neutrophils # (1.3-7.7) k/uL Lymphocytes # (1.0-4.8) k/uL Monocytes # (0-1.0) k/uL Eosinophils # (0-0.7) k/uL Basophils # (0-0.2) k/uL PT (9.0-12.0) sec INR (<1.2) APTT (22.0-30.0) sec D-Dimer (<0.60) mg/L FEU Sodium (137-145) mmol/L Potassium (3.5-5.1) mmol/L Chloride (98-107) mmol/L Carbon Dioxide (22-30) mmol/L Anion Gap mmol/L BUN (9-20) mg/dL Creatinine (0.66-1.25) mg/dL Est GFR (CKD-EPI)AfAm (>60 ml/min/1.73 sqM) Est GFR (CKD-EPI)NonAf (>60 ml/min/1.73 sqM) Glucose (74-99) mg/dL Lactic Ac Sepsis Rflx Plasma Lactic Acid Saúl 2.7 H* (0.7-2.0) mmol/L Calcium (8.4-10.2) mg/dL Magnesium (1.6-2.3) mg/dL Total Bilirubin (0.2-1.3) mg/dL AST (17-59) U/L ALT (4-49) U/L Alkaline Phosphatase (38-126) U/L Troponin I <0.012 (0.000-0.034) ng/mL NT-Pro-B Natriuret Pep 378 pg/mL Total Protein (6.3-8.2) g/dL Albumin (3.5-5.0) g/dL TSH (0.465-4.680) mIU/L Coronavirus (PCR) (Not Detectd) Influenza Type A RNA (Not Detectd) Influenza Type B (PCR) (Not Detectd) 07/06/22 07/06/22 07/06/22 Range/Units 13:00 13:00 13:56 WBC (3.8-10.6) k/uL RBC (4.30-5.90) m/uL Hgb (13.0-17.5) gm/dL Hct (39.0-53.0) % MCV (80.0-100.0) fL MCH (25.0-35.0) pg MCHC (31.0-37.0) g/dL RDW (11.5-15.5) % Plt Count (150-450) k/uL MPV Neutrophils % % Lymphocytes % % Monocytes % % Eosinophils % % Basophils % % Neutrophils # (1.3-7.7) k/uL Lymphocytes # (1.0-4.8) k/uL Monocytes # (0-1.0) k/uL Eosinophils # (0-0.7) k/uL Basophils # (0-0.2) k/uL PT (9.0-12.0) sec INR (<1.2) APTT (22.0-30.0) sec D-Dimer (<0.60) mg/L FEU Sodium (137-145) mmol/L Potassium (3.5-5.1) mmol/L Chloride (98-107) mmol/L Carbon Dioxide (22-30) mmol/L Anion Gap mmol/L BUN (9-20) mg/dL Creatinine (0.66-1.25) mg/dL Est GFR (CKD-EPI)AfAm (>60 ml/min/1.73 sqM) Est GFR (CKD-EPI)NonAf (>60 ml/min/1.73 sqM) Glucose (74-99) mg/dL Lactic Ac Sepsis Rflx Y Plasma Lactic Acid Saúl (0.7-2.0) mmol/L Calcium (8.4-10.2) mg/dL Magnesium (1.6-2.3) mg/dL Total Bilirubin (0.2-1.3) mg/dL AST (17-59) U/L ALT (4-49) U/L Alkaline Phosphatase (38-126) U/L Troponin I (0.000-0.034) ng/mL NT-Pro-B Natriuret Pep pg/mL Total Protein (6.3-8.2) g/dL Albumin (3.5-5.0) g/dL TSH (0.465-4.680) mIU/L Coronavirus (PCR) Not Detected (Not Detectd) Influenza Type A RNA Not Detected (Not Detectd) Influenza Type B (PCR) Not Detected (Not Detectd) 07/06/22 07/06/22 07/06/22 Range/Units 14:49 14:49 16:45 WBC (3.8-10.6) k/uL RBC (4.30-5.90) m/uL Hgb (13.0-17.5) gm/dL Hct (39.0-53.0) % MCV (80.0-100.0) fL MCH (25.0-35.0) pg MCHC (31.0-37.0) g/dL RDW (11.5-15.5) % Plt Count (150-450) k/uL MPV Neutrophils % % Lymphocytes % % Monocytes % % Eosinophils % % Basophils % % Neutrophils # (1.3-7.7) k/uL Lymphocytes # (1.0-4.8) k/uL Monocytes # (0-1.0) k/uL Eosinophils # (0-0.7) k/uL Basophils # (0-0.2) k/uL PT (9.0-12.0) sec INR (<1.2) APTT (22.0-30.0) sec D-Dimer 1.21 H (<0.60) mg/L FEU Sodium (137-145) mmol/L Potassium (3.5-5.1) mmol/L Chloride (98-107) mmol/L Carbon Dioxide (22-30) mmol/L Anion Gap mmol/L BUN (9-20) mg/dL Creatinine (0.66-1.25) mg/dL Est GFR (CKD-EPI)AfAm (>60 ml/min/1.73 sqM) Est GFR (CKD-EPI)NonAf (>60 ml/min/1.73 sqM) Glucose (74-99) mg/dL Lactic Ac Sepsis Rflx Plasma Lactic Acid Saúl 2.2 H* (0.7-2.0) mmol/L Calcium (8.4-10.2) mg/dL Magnesium (1.6-2.3) mg/dL Total Bilirubin (0.2-1.3) mg/dL AST (17-59) U/L ALT (4-49) U/L Alkaline Phosphatase (38-126) U/L Troponin I (0.000-0.034) ng/mL NT-Pro-B Natriuret Pep pg/mL Total Protein (6.3-8.2) g/dL Albumin (3.5-5.0) g/dL TSH 0.596 (0.465-4.680) mIU/L Coronavirus (PCR) (Not Detectd) Influenza Type A RNA (Not Detectd) Influenza Type B (PCR) (Not Detectd) - EKG Data -: EKG Interpreted by Me EKG Comments: 12-lead Electrocardiogram Interpretation Note EKG was reviewed and interpreted by myself. 12-lead ECG performed at 1247 is interpreted by me as revealing supraventricular tachycardia at a rate of 158 beats per minute. Indeterminate axis. QRS duration 93 ms, QTc 380 ms.. There were no ST or T wave abnormalities to suggest myocardial ischemia or injury. R wave progression across the precordium was satisfactory. By my interpretation this EKG is non-diagnostic for acute ischemia. There is a good deal of baseline artifact secondary to the DAVID. 12-lead Electrocardiogram Interpretation Note EKG was reviewed and interpreted by myself. 12-lead ECG performed at 1312 is interpreted by me as revealing SVT versus junctional tachycardia versus possible atrial flutter at a rate of 155 beats per minute. Left axis deviation. NV interval is 103 ms, QRS duration is 85 ms, QTc is 377 ms.. There were no ST or T wave abnormalities to suggest myocardial ischemia or injury. R wave progression across the precordium was satisfactory. By my interpretation this EKG is non-diagnostic for acute ischemia. 12-lead Electrocardiogram Interpretation Note EKG was reviewed and interpreted by myself. 12-lead ECG performed at 1320 is interpreted by me as revealing SVT versus sinus tachycardia at a rate of 141 beats per minute. Left axis deviation. NV interval is 153 ms, QRS duration is 85 ms, QTc is 381 ms.. There were no ST or T wave abnormalities to suggest myocardial ischemia or injury. R wave progression across the precordium was satisfactory. By my interpretation this EKG is non-diagnostic for acute ischemia. 12-lead Electrocardiogram Interpretation Note EKG was reviewed and interpreted by myself. 12-lead ECG performed at 1401 is interpreted by me as revealing sinus tachycardia at a rate of 126 beats per minute. Left axis deviation. NV interval is 172 ms, QRS duration is 95 ms, QTc is 402 ms.. There were no ST or T wave abnormalities to suggest myocardial ischemia or injury. R wave progression across the precordium was satisfactory. By my interpretation this EKG is non-diagnostic for acute ischemia. Seems to have converted from SVT to sinus tachycardia. Critical Care Time Critical Care Time: Yes Total Critical Care Time: 35 Critical Care Time: Upon my evaluation, this patient had a high probability of imminent or life- threatening deterioration due to COPD exacerbation, supraventricular tachycardia, which required my direct attention, intervention, and personal management. I have personally provided 35 minutes of critical care time exclusive of time spent on separately billable procedures. Time includes review of laboratory data, radiology results, discussion with consultants, and monitoring for potential decompensation. Interventions were performed as documented in my note. Disposition Clinical Impression: SVT (supraventricular tachycardia), COPD exacerbation, Hypoxia Disposition: ADMITTED IP TO THIS HOSP Condition: Serious Time of Disposition: 17:00
[2022-07-06] MEDS ORDERED: LORazepam 2 MG/ML INJ IV STA (15:00)
[2022-07-06] MEDS ORDERED: IPRATROPIUM-ALBUTEROL 3 ML NEB INHALATION SCH (16:00)
--- NOTE | 2022-07-06 17:05 | CT ---
EXAMINATION TYPE: CT chest angio for PE DATE OF EXAM: 07/06/2022 COMPARISON: 12/15/2009 HISTORY: Elevated D-dimer, SOB, DAVID, Concern for PE. CT DLP: 355.8 mGycm Automated exposure control for dose reduction was used. CONTRAST: Performed with IV Contrast, patient injected with 100cc mL of Isovue 370. Images obtained from the thoracic inlet through the diaphragm with no contrast. There is pulmonary emphysema. There is some mild reticular interstitial density in the lateral right upper lobe. No pulmonary mass. No mediastinal adenopathy. There are no hilar masses. Thoracic aorta i s intact. No aneurysm. There is some reticular interstitial density also in the lingula left upper lo be. There is some flattening of the diaphragm. There is no evidence of filling defect in the pulmonary arteries. Thoracic aorta is intact. No aneury sm or dissection. The thoracic spine appears intact. No compression fracture. Sternum is intact. IMPRESSION: No evidence of pulmonary embolism. Emphysema and mild pulmonary fibrosis. No suspicious pulmonary mas s.
[2022-07-06] MEDS ORDERED: NALOXONE 0.4 MG/ML 1 ML VIAL IV PRN (17:14)
[2022-07-06] MEDS: IPRATROPIUM-ALBUTEROL 3 ML NEB INHALATION SCH ×3 (19:01→23:28)
[2022-07-06] MEDS: SODIUM CHLORIDE 0.9% 1,000 ML IV SCH (19:03)
[2022-07-06] MEDS ORDERED: ALBUTEROL NEBULIZED 2.5 MG/3 ML INHALATION PRN (20:25)
[2022-07-06] MEDS: ATORVASTATIN 10 MG TAB PO SCH (20:55)
[2022-07-06] MEDS: methylPREDNISolone SOD SUCCI 40 MG/ML 1 ML VIAL IV SCH (20:55)
[2022-07-06 21:21] LABS: Glucose,Whole Blood 160 mg/dL (70-110)
[2022-07-06] MEDS ORDERED: DEXTROSE 50% SYRINGE 50 ML IVP PRN (21:24)
[2022-07-06 21:53] LABS: Appearance,Urine Clear (Clear); Bilirubin,Urine Negative (Negative); Blood,Urine Trace (Negative); Color,Urine Yellow; Glucose,Urine (UA) Negative (Negative); Ketones,Urine 1+ (Negative); Leukocyte Esterase,Urine Negative (Negative); Mucus,Urine Rare /hpf; Nitrite,Urine Negative (Negative); Protein,Urine 1+ (Negative); RBC,Urine <1 /hpf (0-5); Specific Gravity,Urine 1.024 (1.001-1.035); Urobilinogen,Urine <2.0 mg/dL (<2.0); WBC,Urine 1 /hpf (0-5)
[2022-07-06] MEDS: INSULIN ASPART (NovoLOG) 100 UNIT/ML VIAL SQ SCH (22:05)
[2022-07-06] MEDS: LORazepam 1 MG/0.5 ML VIAL IV PRN (22:34)
[2022-07-06] MEDS: HEPARIN SODIUM,PORCINE/PF 5,000 UNIT/0.5 ML SYRINGE SQ SCH (23:46)
[2022-07-07] MEDS: IPRATROPIUM-ALBUTEROL 3 ML NEB INHALATION SCH ×9 (01:09→23:27)
[2022-07-07] MEDS: DILTIAZEM 125 MG in SODIUM CHLORIDE 0.9% 100 ML IV SCH ×3 (02:48→22:04)
[2022-07-07 02:55] LABS: Basophils % (A) 0 %; Eosinophils % (A) 0 %; HGB 14.6 gm/dL (13.0-17.5); Lymphocytes # (A) 0.4 k/uL (1.0-4.8); Lymphocytes % (A) 4 %; MCH 31.1 pg (25.0-35.0); MCHC 34.8 g/dL (31.0-37.0); MCV 89.5 fL (80.0-100.0); Mean Platelet Volume 7.1; Monocytes # (A) 0.4 k/uL (0-1.0); Monocytes % (A) 4 %; Neutrophils % (A) 91 %; Platelet Count 254 k/uL (150-450); RBC 4.69 m/uL (4.30-5.90); RDW 12.6 % (11.5-15.5)
[2022-07-07 03:07] LABS: African American GFR (CKD) >90 (>60 ml/min/1.73 sqM); Anion Gap 12 mmol/L; Blood Urea Nitrogen 20 mg/dL (9-20); Calcium 8.4 mg/dL (8.4-10.2); Carbon Dioxide 21 mmol/L (22-30); Chloride 107 mmol/L (98-107); Glucose 183 mg/dL (74-99); Non-African American GFR(CKD) 88 (>60 ml/min/1.73 sqM); Potassium 4.4 mmol/L (3.5-5.1); Sodium 140 mmol/L (137-145)
[2022-07-07 06:11] LABS: Glucose,Whole Blood 179 mg/dL (70-110)
[2022-07-07] MEDS: PANTOPRAZOLE 40 MG TABLET PO SCH (06:18)
[2022-07-07] MEDS: LORazepam 1 MG/0.5 ML VIAL IV PRN ×2 (06:18→13:22)
[2022-07-07] MEDS: INSULIN ASPART (NovoLOG) 100 UNIT/ML VIAL SQ SCH ×4 (06:19→20:43)
[2022-07-07] MEDS: HEPARIN SODIUM,PORCINE/PF 5,000 UNIT/0.5 ML SYRINGE SQ SCH ×3 (08:45→23:18)
[2022-07-07] MEDS: methylPREDNISolone SOD SUCCI 40 MG/ML 1 ML VIAL IV SCH (08:45)
[2022-07-07] MEDS: SODIUM CHLORIDE 0.9% 1,000 ML IV SCH ×2 (08:49→17:01)
[2022-07-07] MEDS: SYMBICORT 80-4.5 MCG INHALER INHALATION SCH ×2 (09:17→09:30)
[2022-07-07 09:51] LABS: ABG HCO3 25 mmol/L (21-25); ABG Oxygen Saturation 98.5 % (94-97); ABG PCO2 51 mmHg (35-45); ABG PO2 107 mmHg (83-108); ABG TCO2 26 mmol/L (19-24); Allen Test Performed? Yes
[2022-07-07 10:11] LABS: Glucose,Whole Blood 143 mg/dL (70-110)
--- NOTE | 2022-07-07 10:36 | P.CNPUL ---
History of Present Illness Consult date: 07/07/22 Requesting physician: Radha Marroquin Reason for consult: COPD Chief complaint: Shortness of breath cough and wheezing History of present illness: This is a 66-year-old white male with history of moderate severe COPD, benign prostatic hypertrophy, history of laryngeal cancer diagnosed back in 2017, patient underwent radiation treatment with full recovery. Patient presented to the ER yesterday, complaining mostly of cough wheezing shortness of breath, and upon his initial evaluation in the ER, patient was noted to be tachycardic and noted to be in supraventricular tachycardia. His heart rate was 160. Patient was hypertensive. And he was noted to have increased work of breathing. Pa miller received a adenosine, patient was placed on Cardizem drip at 15 mg per hour. Patient was admitted, and this consult was initiated. His COPD status was quite severe apparently and the patient was getting updraft treatment almost every 2 hours. Patient was also placed on BiPAP because he was noted to be quite dyspneic and in respiratory distress on nasal cannula. ABG on BiPAP showed a pO2 of 107 pCO2 51 pH of 7.31, and I got him down from 35% to 50%. I also arranged for the patient to transfer to the ICU as he was noted to seen to be quite dyspneic and his dyspnea was a bit of this proportional to his physical examination. CT angiogram of the chest done on his admission showed no evidence of pulmonary embolism, there was evidence of emphysema and mild pulmonary fibrosis. Review of Systems CONST: Denies fever EYES: Denies blurry vision ENT: Denies nasal congestion C/V: Denies Chest pain RESP: As noted in HPI GI: Denies abdominal pain : Denies dysuria SKIN: Denies rash. MSK: Denies joint pain. 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) History of Any Multi-Drug Resistant Organisms: None Reported Past Surgical History: No Surgical Hx Reported Additional Past Surgical History / Comment(s): SX "CORD STRANGLED BOWEL", HAS HAD TOOTH EXTRACTION WITH ANESTHESIA Past Anesthesia/Blood Transfusion Reactions: Unable to Obtain Additional Past Anesthesia/Blood Transfusion Reaction / Comment(s): patient has not received blood or anesthetic Smoking Status: Former smoker - Past Family History Father Family Medical History: No Reported History Mother Family Medical History: No Reported History Medications and Allergies Home Medications Medication Instructions Recorded Confirmed Type Albuterol Inhaler [Ventolin Hfa 2 puff INHALATION RT-QID PRN 05/01/17 07/06/22 History Inhaler] Fluticasone Propion/Salmeterol 1 puff INHALATION RT-DAILY 07/06/22 07/06/22 History [Advair 250-50 Diskus] Ipratropium-Albuterol Nebulize 3 ml INHALATION RT-QID PRN 07/06/22 07/06/22 History [Duoneb 0.5 mg-3 mg/3 ml Soln] Omeprazole 20 mg PO DAILY 07/06/22 07/06/22 History Simvastatin [Zocor] 20 mg PO HS 07/06/22 07/06/22 History Allergies Allergy/AdvReac Type Severity Reaction Status Date / Time No Known Allergies Allergy Verified 07/06/22 16:49 Physical Exam Vitals: Vital Signs Temp Pulse Pulse Resp BP BP Pulse Ox 07/07/22 09:54 07/07/22 09:33 92 07/07/22 09:18 92 07/07/22 08:00 97.4 F L 101 H 29 H 132/58 97 07/07/22 07:32 92 07/07/22 07:14 88 07/07/22 05:08 98 07/07/22 04:54 95 07/07/22 03:35 97.9 F 91 24 128/63 97 07/07/22 03:30 90 07/07/22 03:18 88 07/07/22 01:47 102 H 07/07/22 01:18 107 H 07/07/22 01:10 103 H 07/07/22 00:00 97.5 F L 102 H 22 145/61 94 L 07/06/22 23:50 07/06/22 23:37 112 H 07/06/22 23:28 102 H 07/06/22 21:19 126 H 07/06/22 21:08 124 H 07/06/22 21:02 97.3 F L 115 H 22 163/92 96 07/06/22 20:00 97.3 F L 115 H 22 163/92 96 07/06/22 19:15 07/06/22 19:14 128 H 07/06/22 19:05 97.6 F 123 H 20 95 07/06/22 19:01 120 H 07/06/22 18:48 116 H 18 133/87 93 L 07/06/22 17:30 113 H 18 142/88 94 L 07/06/22 16:46 131 H 18 171/99 94 L 07/06/22 16:12 125 H 07/06/22 15:19 133 H 22 167/91 95 07/06/22 15:11 131 H 07/06/22 14:55 138 H 07/06/22 14:06 125 H 18 111/94 97 07/06/22 13:21 141 H 20 172/111 97 07/06/22 13:05 154 H 18 199/135 94 L 07/06/22 12:59 07/06/22 12:54 28 H 07/06/22 12:45 98.7 F 160 H 30 H 189/113 97 FiO2 07/07/22 09:54 30 07/07/22 09:33 35 07/07/22 09:18 30 07/07/22 08:00 30 07/07/22 07:32 07/07/22 07:14 07/07/22 05:08 07/07/22 04:54 07/07/22 03:35 30 07/07/22 03:30 07/07/22 03:18 30 07/07/22 01:47 07/07/22 01:18 07/07/22 01:10 07/07/22 00:00 30 07/06/22 23:50 30 07/06/22 23:37 07/06/22 23:28 07/06/22 21:19 30 07/06/22 21:08 07/06/22 21:02 30 07/06/22 20:00 30 07/06/22 19:15 30 07/06/22 19:14 07/06/22 19:05 07/06/22 19:01 07/06/22 18:48 07/06/22 17:30 07/06/22 16:46 07/06/22 16:12 07/06/22 15:19 07/06/22 15:11 07/06/22 14:55 30 07/06/22 14:06 07/06/22 13:21 07/06/22 13:05 07/06/22 12:59 30 07/06/22 12:54 07/06/22 12:45 Intake and Output 07/06/22 07/07/22 07/07/22 22:59 06:59 14:59 Intake Total 18.167 1395.75 Output Total 125 650 Balance -106.833 745.75 Intake: Intake, IV Titration 18.167 855.75 Amount Diltiazem 125 mg In 18.167 105.75 Sodium Chloride 0.9% 100 ml @ Per Protocol IV .Q0M [facility] Rx#:[id number] Sodium Chloride 0.9% 1, 750 000 ml @ 75 mls/hr IV . [id number] [facility] Rx#:[id number] Oral 540 Output: Urine 125 650 Other: Voiding Method Toilet Toilet Toilet Urinal Urinal Urinal # Voids 1 1 Weight 84.232 kg HEAD: Normocephalic, atraumatic. EYES: PERRLA, EOMI, conjunctiva normal, no discharge. ENT: Hearing grossly intact, normal oropharynx. RESPIRATORY: Diminished breath sounds bilaterally, wheezing on forced expiratory maneuver. C/V: Normal S1 and S2, no S3 gallop, patient is presently on Cardizem drip at 15 mg per hour, he seems to be in sinus rhythm rate at 90. ABD: Abd is soft, nontender, nondistended EXT: Normal range of motion, no obvious deformity SKIN: No rashes or lesions observed on exposed skin. NEURO: Alert and Oriented 4. No focal deficits. Results - Laboratory Findings CBC and BMP: 07/07/22 02:06 07/07/22 02:06 ABG ABG pH 7.30 (7.35-7.45) L 07/07/22 09:45 ABG pCO2 51 mmHg (35-45) H 07/07/22 09:45 ABG pO2 107 mmHg (83-108) 07/07/22 09:45 ABG O2 Saturation 98.5 % (94-97) H 07/07/22 09:45 PT/INR, D-dimer PT 10.5 sec (9.0-12.0) 07/06/22 13:00 INR 1.0 (<1.2) 07/06/22 13:00 D-Dimer 1.21 mg/L FEU (<0.60) H 07/06/22 14:49 Abnormal lab findings: Abnormal Labs 07/06/22 07/06/22 07/06/22 13:00 13:00 13:00 WBC 16.0 H Neutrophils # 14.0 H Lymphocytes # 0.9 L D-Dimer ABG pH ABG pCO2 ABG Total CO2 ABG O2 Saturation Carbon Dioxide 20 L Glucose 171 H POC Glucose (mg/dL) Plasma Lactic Acid Saúl 2.7 H* Total Bilirubin 2.1 H Urine Protein Urine Ketones Urine Blood Urine Mucus 07/06/22 07/06/22 07/06/22 14:49 16:45 20:07 WBC Neutrophils # Lymphocytes # D-Dimer 1.21 H ABG pH ABG pCO2 ABG Total CO2 ABG O2 Saturation Carbon Dioxide Glucose POC Glucose (mg/dL) Plasma Lactic Acid Saúl 2.2 H* 2.2 H* Total Bilirubin Urine Protein Urine Ketones Urine Blood Urine Mucus 07/06/22 07/06/22 07/06/22 21:20 21:44 22:42 WBC Neutrophils # Lymphocytes # D-Dimer ABG pH ABG pCO2 ABG Total CO2 ABG O2 Saturation Carbon Dioxide Glucose POC Glucose (mg/dL) 160 H Plasma Lactic Acid Saúl 3.2 H* Total Bilirubin Urine Protein 1+ H Urine Ketones 1+ H Urine Blood Trace H Urine Mucus Rare H 07/07/22 07/07/22 07/07/22 02:06 02:06 02:06 WBC Neutrophils # 9.0 H Lymphocytes # 0.4 L D-Dimer ABG pH ABG pCO2 ABG Total CO2 ABG O2 Saturation Carbon Dioxide 21 L Glucose 183 H POC Glucose (mg/dL) Plasma Lactic Acid Saúl 2.1 H* Total Bilirubin Urine Protein Urine Ketones Urine Blood Urine Mucus 07/07/22 07/07/22 07/07/22 06:10 09:45 10:10 WBC Neutrophils # Lymphocytes # D-Dimer ABG pH 7.30 L ABG pCO2 51 H ABG Total CO2 26 H ABG O2 Saturation 98.5 H Carbon Dioxide Glucose POC Glucose (mg/dL) 179 H 143 H Plasma Lactic Acid Saúl Total Bilirubin Urine Protein Urine Ketones Urine Blood Urine Mucus - Diagnostic Findings CT scan - chest: image reviewed (As noted in HPI) Assessment and Plan Assessment: Impression: Acute exacerbation of COPD Acute tracheobronchitis Supraventricular tachycardia, exacerbated by COPD exacerbation. History of laryngeal cancer, and remission status post radiation treatment diagnosed and treated in 2017. Acute hypercapnic respiratory failure secondary to COPD exacerbation Recommendation: Continue BiPAP, cut down her FiO2 to 30% August 23 5% after reviewing the ABG. Transfer patient to ICU and monitor closely Continue updrafts Empiric antibiotics, patient will be placed on Rocephin for now, transitioned later to oral antibiotics once he is off BiPAP. Continue Cardizem and the patient to be seen by cardiology on consultation Continue Solu-Medrol 60 mg IV push every 6 hours Continue Symbicort GI and DVT prophylaxis We will continue to follow. Time with Patient: Greater than 30
[2022-07-07] MEDS: SODIUM CHLORIDE 0.9% 500 ML 500 ML IV SCH (11:38)
[2022-07-07] MEDS ORDERED: Potassium Replacement Protocol 1 EACH MISC MISCELLANE PRN (13:53)
[2022-07-07] MEDS: methylPREDNISolone SOD SUCCI 125 MG/2 ML VIAL IV SCH ×2 (14:51→20:44)
[2022-07-07] MEDS: DEXMEDETOMIDINE/0.9% NACL(PMX) 400 MCG in EMPTY BAG 1 BAG IV SCH ×2 (15:24→22:05)
--- NOTE | 2022-07-07 16:09 | P.CRDCN ---
History of Present Illness History of present illness: HISTORY OF PRESENTING ILLNESS Patient is a pleasant 66-year-old male with history of laryngeal cancer diagnosed 2017 status post radiation and in remission, COPD, BPH, history of congestive heart failure who presents secondary to increasing shortness breath over last 24 hours. He currently is on Precedex and was having significant dyspnea and therefore placed on Precedex and BiPAP and is much better controlled. Therefore much of the history is supplied by family including son at bedside. Patient had been feeling fairly normal and had gone to the [facility] one week ago. 24 hours ago however he started having increasing dyspnea and could not eat much food and struggling to breathe and finally decided called EMS. On presentation he had respiratory distress with increased respiratory rate and tachycardia with heart rates into the 130s to 160s. He was placed on Cardizem drip and appears his heart rates have slowly improved. Concern of possible SVT however appears consistent with sinus tachycardia. EKG shows sinus rhythm, Q waves inferiorly, nonspecific 0.[address] depressions in the lateral leads. He apparently had not been having any chest pain or pressure. No recent fevers, chills, cough. D-dimer was mildly elevated and therefore CT PE protocol was performed which showed no PE and only evidence of emphysema and pulmonary fibrosis. Initial troponin times 10.012 and BNP 378. REVIEW OF SYSTEMS At the time of my exam: CONSTITUTIONAL: Denies fever or chills. CARDIOVASCULAR: Denies chest pain, +shortness of breath, no orthopnea, PND or palpitations. RESPIRATORY: Denies cough. GASTROINTESTINAL: Denies abdominal pain, diarrhea, constipation, nausea or vomiting. MUSCULOSKELETAL: Denies myalgias. NEUROLOGIC: Denies numbness, tingling or weakness. ENDOCRINE: Denies fatigue, weight change, polydipsia or polyurina. GENITOURINARY: Denies burning, hematuria or urgency with micturation. HEMATOLOGIC: Denies history of anemia or bleeding. PHYSICAL EXAMINATION Vital signs reviewed. CONSTITUTIONAL: No apparent distress, ill appearing, somnolent on BIPAP HEENT: Head is normocephalic. Pupils are equal, round. Sclerae anicteric. Mucous membranes of the mouth are moist. No JVD. No carotid bruit. CHEST EXAMINATION: Mild wheeze bilaterally, decreased air movement HEART EXAMINATION: Regular rate and rhythm. S1, S2 heard. No murmurs, gallops or rub. ABDOMEN: Soft, nontender. Positive bowel sounds. EXTREMITIES: 2+ peripheral pulses, no lower extremity edema and no calf tenderness. NEUROLOGIC EXAMINATION: Patient is somnolent ASSESSMENT 1. Acute on chronic respiratory failure appears related to COPD exacerbation 2. Tachycardia, appears most consistent with sinus tachycardia with gradual increase and decrease 3. History of laryngeal cancer 4. History of heart failure, currently appears euvolemic PLAN Check repeat troponin for completeness sake. Patient did have significant lactic acid, increased respiratory rate and work of breathing and appears tachycardia slowly came down more consistent with sinus tachycardia as opposed to SVT. Wean Cardizem drip as able. Check 2-D echo. Further recommendations to follow. Past Medical History Past Medical History: COPD, Prostate Disorder Additional Past Medical History / Comment(s): HX OF HOARSENESS PAST 2 MONTHS, HX PLEURAL EFFUSION AND EDEMA TO LEGS 01/2017, Throat cancer on vocal cords (Radiation 2015) History of Any Multi-Drug Resistant Organisms: None Reported Past Surgical History: No Surgical Hx Reported Additional Past Surgical History / Comment(s): SX "CORD STRANGLED BOWEL", HAS HAD TOOTH EXTRACTION WITH ANESTHESIA Past Anesthesia/Blood Transfusion Reactions: Unable to Obtain Additional Past Anesthesia/Blood Transfusion Reaction / Comment(s): patient has not received blood or anesthetic Smoking Status: Former smoker - Past Family History Father Family Medical History: No Reported History Mother Family Medical History: No Reported History Medications and Allergies Home Medications Medication Instructions Recorded Confirmed Type Albuterol Inhaler [Ventolin Hfa 2 puff INHALATION RT-QID PRN 05/01/17 07/06/22 History Inhaler] Fluticasone Propion/Salmeterol 1 puff INHALATION RT-DAILY 07/06/22 07/06/22 Hist ory [Advair 250-50 Diskus] Ipratropium-Albuterol Nebulize 3 ml INHALATION RT-QID PRN 07/06/22 07/06/22 History [Duoneb 0.5 mg-3 mg/3 ml Soln] Omeprazole 20 mg PO DAILY 07/06/22 07/06/22 History Simvastatin [Zocor] 20 mg PO HS 07/06/22 07/06/22 History Allergies Allergy/AdvReac Type Severity Reaction Status Date / Time No Known Allergies Allergy Verified 07/06/22 16:49 Physical Exam Vitals: Vital Signs Temp Pulse Pulse Resp BP BP Pulse Ox 07/07/22 15:24 96 07/07/22 15:14 86 07/07/22 14:00 84 66 H 135/98 90 L 07/07/22 13:00 96 37 H 167/93 85 L 07/07/22 12:00 98.1 F 98 22 139/74 92 L 07/07/22 11:40 86 07/07/22 11:31 84 07/07/22 11:00 80 23 146/81 94 L 07/07/22 10:10 95 07/07/22 09:54 07/07/22 09:33 92 07/07/22 09:18 92 07/07/22 08:00 97.4 F L 101 H 29 H 132/58 97 07/07/22 07:32 92 07/07/22 07:14 88 07/07/22 05:08 98 07/07/22 04:54 95 07/07/22 03:35 97.9 F 91 24 128/63 97 07/07/22 03:30 90 07/07/22 03:18 88 07/07/22 01:47 102 H 07/07/22 01:18 107 H 07/07/22 01:10 103 H 07/07/22 00:00 97.5 F L 102 H 22 145/61 94 L 07/06/22 23:50 07/06/22 23:37 112 H 07/06/22 23:28 102 H 07/06/22 21:19 126 H 07/06/22 21:08 124 H 07/06/22 21:02 97.3 F L 115 H 22 163/92 96 07/06/22 20:00 97.3 F L 115 H 22 163/92 96 07/06/22 19:15 07/06/22 19:14 128 H 07/06/22 19:05 97.6 F 123 H 20 95 07/06/22 19:01 120 H 07/06/22 18:48 116 H 18 133/87 93 L 07/06/22 17:30 113 H 18 142/88 94 L 07/06/22 16:46 131 H 18 171/99 94 L 07/06/22 16:12 125 H FiO2 07/07/22 15:24 07/07/22 15:14 40 07/07/22 14:00 07/07/22 13:00 07/07/22 12:00 30 07/07/22 11:40 07/07/22 11:31 30 07/07/22 11:00 07/07/22 10:10 07/07/22 09:54 30 07/07/22 09:33 35 07/07/22 09:18 30 07/07/22 08:00 30 07/07/22 07:32 07/07/22 07:14 07/07/22 05:08 07/07/22 04:54 07/07/22 03:35 30 07/07/22 03:30 07/07/22 03:18 30 07/07/22 01:47 07/07/22 01:18 07/07/22 01:10 07/07/22 00:00 30 07/06/22 23:50 30 07/06/22 23:37 07/06/22 23:28 07/06/22 21:19 30 07/06/22 21:08 07/06/22 21:02 30 07/06/22 20:00 30 07/06/22 19:15 30 07/06/22 19:14 07/06/22 19:05 07/06/22 19:01 07/06/22 18:48 07/06/22 17:30 07/06/22 16:46 07/06/22 16:12 Intake and Output 07/07/22 07/07/22 07/07/22 06:59 14:59 22:59 Intake Total 1395.75 165 10 Output Total 650 400 Balance 745.75 -235 10 Intake: Intake, IV Titration 855.75 165 10 Amount Diltiazem 125 mg In 105.75 125 Sodium Chloride 0.9% 100 ml @ Per Protocol IV .Q0M [facility] Rx#:[id number] Sodium Chloride 0.9% 1, 750 000 ml @ 75 mls/hr IV . [id number] [facility] Rx#:[id number] Sodium Chloride 0.9% 500 40 10 ml 500 ml @ 10 mls/hr IV .Q24H [facility] Rx#:[id number] Oral 540 Output: Urine 650 400 Other: Voiding Method Toilet Toilet Urinal Urinal # Voids 1 Results 07/07/22 02:06 07/07/22 02:06 CBC 07/07/22 Range/Units 02:06 WBC 10.0 (3.8-10.6) k/uL RBC 4.69 (4.30-5.90) m/uL Hgb 14.6 (13.0-17.5) gm/dL Hct 42.0 (39.0-53.0) % Plt Count 254 (150-450) k/uL Comprehensive Metabolic Panel 07/07/22 Range/Units 02:06 Sodium 140 (137-145) mmol/L Potassium 4.4 (3.5-5.1) mmol/L Chloride 107 (98-107) mmol/L Carbon Dioxide 21 L (22-30) mmol/L BUN 20 (9-20) mg/dL Creatinine 0.89 (0.66-1.25) mg/dL Glucose 183 H (74-99) mg/dL Calcium 8.4 (8.4-10.2) mg/dL Current Medications Generic Name Dose Route Start Last Admin Trade Name Freq PRN Reason Stop Dose Admin Albuterol Sulfate 2.5 mg 07/06/22 20:25 Albuterol Nebulized 2.5 Mg/3 Ml INHALATION RT-QID PRN Shortness Of Breath Albuterol/Ipratropium 3 ml 07/07/22 12:00 07/07/22 15:12 Ipratropium-Albuterol 3 Ml Neb INHALATION 3 ml RT-Q4H [facility] Administration Atorvastatin Calcium 10 mg 07/06/22 21:00 07/06/22 20:55 Atorvastatin 10 Mg Tab PO 10 mg HS ALLIE Administration Budesonide/Formoterol Fumarate 2 puff 07/07/22 20:00 Symbicort 160-4.5 Mcg Inhaler INHALATION RT-BID [facility]IE Dextrose/Water 25 ml 07/06/22 21:24 Dextrose 50% Syringe 50 Ml IVP PER PROTOCOL PRN Hypoglycemia Protocol Dextrose/Water 50 ml 07/06/22 21:24 Dextrose 50% Syringe 50 Ml IVP PER PROTOCOL PRN Hypoglycemia Protocol Heparin Sodium (Porcine) 5,000 unit 07/07/22 00:00 07/07/22 14:51 Heparin Sodium,Porcine/Pf 5,000 Unit/0.5 Ml Syringe SQ 5,000 unit Q8HR [facility] Administration Diltiazem HCl 125 mg/ Sodium 125 mls @ 0 mls/hr 07/06/22 13:45 07/07/22 11:36 Chloride IV 15 mls/hr .Q0M [facility] 15 mls/hr Administration Protocol Per Protocol Sodium Chloride 1,000 mls @ 75 mls/hr 07/06/22 17:15 07/07/22 08:49 Saline 0.9% IV Not Given .[id number] [facility]IE Ceftriaxone Sodium 1 gm/ 50 mls @ 100 mls/hr 07/07/22 09:45 07/07/22 11:37 Sodium Chloride IVPB 100 mls/hr Q24HR [facility] Administration Protocol Sodium Chloride 500 mls @ 10 mls/hr 07/07/22 11:30 07/07/22 11:38 Saline 0.9% IV 10 mls/hr .Q24H [facility] Administration Dexmedetomidine HCl 400 mcg/ 100 mls @ 4.212 mls/hr 07/07/22 15:15 07/07/22 15:24 IV Solution IV 0.2 mcg/kg/hr .[id number] [facility] 4.212 mls/hr Administration Protocol 0.2 MCG/KG/HR Insulin Aspart 0 unit 07/06/22 21:00 07/07/22 13:37 Insulin Aspart (Novolog) 100 Unit/Ml Vial SQ Not Given ACHS [facility] Protocol Lorazepam 0.5 mg 07/07/22 14:35 Lorazepam 1 Mg/0.5 Ml Vial IV Q6HR PRN Anxiety Methylprednisolone Sodium Succinate 60 mg 07/07/22 15:00 07/07/22 14:51 Methylprednisolone Sod Succi 125 Mg/2 Ml Vial IV 60 mg Q6H [facility] Administration Miscellaneous Information 1 each 07/07/22 13:53 Potassium Replacement Protocol 1 Each Misc MISCELLANE DAILY PRN Per Protocol Protocol Naloxone HCl 0.2 mg 07/06/22 17:14 Naloxone 0.4 Mg/Ml 1 Ml Vial IV Q2M PRN Opioid Reversal Pantoprazole Sodium 40 mg 07/07/22 07:30 07/07/22 06:18 Pantoprazole 40 Mg Tablet PO 40 mg [id number] ALLIE Administration Intake and Output 07/07/22 07/07/22 07/07/22 06:59 14:59 22:59 Intake Total 1395.75 165 10 Output Total 650 400 Balance 745.75 -235 10 Intake: Intake, IV Titration 855.75 165 10 Amount Diltiazem 125 mg In 105.75 125 Sodium Chloride 0.9% 100 ml @ Per Protocol IV .Q0M [facility] Rx#:[id number] Sodium Chloride 0.9% 1, 750 000 ml @ 75 mls/hr IV . [id number] [facility] Rx#:[id number] Sodium Chloride 0.9% 500 40 10 ml 500 ml @ 10 mls/hr IV .Q24H [facility] Rx#:[id number] Oral 540 Output: Urine 650 400 Other: Voiding Method Toilet Toilet Urinal Urinal # Voids 1 07/07/22 02:06 07/07/22 02:06
[2022-07-07 17:08] LABS: Glucose,Whole Blood 195 mg/dL (70-110)
[2022-07-07 20:34] LABS: Glucose,Whole Blood 176 mg/dL (70-110)
--- NOTE | 2022-07-07 20:47 | P.HPIM ---
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 Patient tried breathing treatments at home without much relief. Patient was tachycardic on admission with heart rate in 160s and was found to be SVT patient was given Ellenson in the ER. Otherwise denied any complaints of chest pain. No nausea vomiting or abdominal pain. Denied any increased leg swelling. No fever no chills. No prior history of SVT. Chest x-ray showed COPD. No active cardiopulmonary disease. Mild pulmonary fibrotic changes. No significant change. CTA chest showed no evidence of PE. Emphysema and mild pulmonary fibrosis. No suspicious pulmonary mass. Laboratory data showed WBC 16.0 hemoglobin 16.0 and platelets 269 Sodium 139 potassium four-point 102 bicarb is 20 BUN 16 and creatinine 0.87 and lactic acid 2.7 Troponin x1 negative and proBNP is 378 TSH 0.49 6 Coronavirus and influenza AMB not detected. Urinalysis is negative for infection. Review of Systems Constitutional: Patient denies any fever or chills . no Generalized weakness. Abdomen: Patient denied any nausea or vomiting or abd. pain Cardiovascular: Patient denies any chest pain or short of breath no palpitations. Respiratory: Patient does have cough and congestion and sputum production and shortness of breath Neurologic: Patient denied any numbness or tingling headache. Musculoskeletal: Patient denies any complaints of joint swelling or deformity. Skin: Negative Psychiatric: Negative Endocrine: No heat or cold intolerance. No recent weight gain. Genitourinary: No dysuria or hematuria. All other 14 point ROS negative except the above 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) History of Any Multi-Drug Resistant Organisms: None Reported Past Surgical History: No Surgical Hx Reported Additional Past Surgical History / Comment(s): SX INFANT "CORD STRANGLED BOWEL", HAS HAD TOOTH EXTRACTION WITH ANESTHESIA Past Anesthesia/Blood Transfusion Reactions: Unable to Obtain Additional Past Anesthesia/Blood Transfusion Reaction / Comment(s): patient has not received blood or anesthetic Smoking Status: Former smoker - Past Family History Father Family Medical History: No Reported History Mother Family Medical History: No Reported History Medications and Allergies Home Medications Medication Instructions Recorded Confirmed Type Albuterol Inhaler [Ventolin Hfa 2 puff INHALATION RT-QID PRN 05/01/17 07/06/22 History Inhaler] Fluticasone Propion/Salmeterol 1 puff INHALATION RT-DAILY 07/06/22 07/06/22 History [Advair 250-50 Diskus] Ipratropium-Albuterol Nebulize 3 ml INHALATION RT-QID PRN 07/06/22 07/06/22 History [Duoneb 0.5 mg-3 mg/3 ml Soln] Omeprazole 20 mg PO DAILY 07/06/22 07/06/22 History Simvastatin [Zocor] 20 mg PO HS 07/06/22 07/06/22 History Allergies Allergy/AdvReac Type Severity Reaction Status Date / Time No Known Allergies Allergy Verified 07/06/22 16:49 Physical Exam Vitals: Vital Signs Temp Pulse Pulse Resp BP BP Pulse Ox 07/07/22 09:54 07/07/22 09:33 92 07/07/22 09:18 92 07/07/22 08:00 97.4 F L 101 H 29 H 132/58 97 07/07/22 07:32 92 07/07/22 07:14 88 07/07/22 05:08 98 07/07/22 04:54 95 07/07/22 03:35 97.9 F 91 24 128/63 97 07/07/22 03:30 90 07/07/22 03:18 88 07/07/22 01:47 102 H 07/07/22 01:18 107 H 07/07/22 01:10 103 H 07/07/22 00:00 97.5 F L 102 H 22 145/61 94 L 07/06/22 23:50 07/06/22 23:37 112 H 07/06/22 23:28 102 H 07/06/22 21:19 126 H 07/06/22 21:08 124 H 07/06/22 21:02 97.3 F L 115 H 22 163/92 96 07/06/22 20:00 97.3 F L 115 H 22 163/92 96 07/06/22 19:15 07/06/22 19:14 128 H 07/06/22 19:05 97.6 F 123 H 20 95 07/06/22 19:01 120 H 07/06/22 18:48 116 H 18 133/87 93 L 07/06/22 17:30 113 H 18 142/88 94 L 07/06/22 16:46 131 H 18 171/99 94 L 07/06/22 16:12 125 H 07/06/22 15:19 133 H 22 167/91 95 07/06/22 15:11 131 H 07/06/22 14:55 138 H 07/06/22 14:06 125 H 18 111/94 97 07/06/22 13:21 141 H 20 172/111 97 07/06/22 13:05 154 H 18 199/135 94 L 07/06/22 12:59 07/06/22 12:54 28 H 07/06/22 12:45 98.7 F 160 H 30 H 189/113 97 FiO2 07/07/22 09:54 30 07/07/22 09:33 35 07/07/22 09:18 30 07/07/22 08:00 30 07/07/22 07:32 07/07/22 07:14 07/07/22 05:08 07/07/22 04:54 07/07/22 03:35 30 07/07/22 03:30 07/07/22 03:18 30 07/07/22 01:47 07/07/22 01:18 07/07/22 01:10 07/07/22 00:00 30 07/06/22 23:50 30 07/06/22 23:37 07/06/22 23:28 07/06/22 21:19 30 07/06/22 21:08 07/06/22 21:02 30 07/06/22 20:00 30 07/06/22 19:15 30 07/06/22 19:14 07/06/22 19:05 07/06/22 19:01 07/06/22 18:48 07/06/22 17:30 07/06/22 16:46 07/06/22 16:12 07/06/22 15:19 07/06/22 15:11 07/06/22 14:55 30 07/06/22 14:06 07/06/22 13:21 07/06/22 13:05 07/06/22 12:59 30 07/06/22 12:54 07/06/22 12:45 Intake and Output 07/06/22 07/07/22 07/07/22 22:59 06:59 14:59 Intake Total 18.167 1395.75 Output Total 125 650 Balance -106.833 745.75 Intake: Intake, IV Titration 18.167 855.75 Amount Diltiazem 125 mg In 18.167 105.75 Sodium Chloride 0.9% 100 ml @ Per Protocol IV .Q0M ALLIE Rx#:[id number] Sodium Chloride 0.9% 1, 750 000 ml @ 75 mls/hr IV . [id number] ALLIE Rx#:[id number] Oral 540 Output: Urine 125 650 Other: Voiding Method Toilet Toilet Toilet Urinal Urinal Urinal # Voids 1 1 Weight 84.232 kg PHYSICAL EXAMINATION: Patient is lying in the bed comfortably, no acute distress, awake alert and oriented.. On BiPAP. HEENT: Normocephalic. Neck is supple. Pupils reactive. Nostrils clear. Oral cavity is moist. Neck reveals no JVD, carotid bruits, or thyromegaly. CHEST EXAMINATION: Trachea is central. Symmetrical expansion. Bilateral diminished sounds and diffuse wheezing. Scattered rhonchi.. CARDIAC: Normal S1, S2 with no gallops. No murmurs ABDOMEN: Soft. Bowel sounds present. Nontender. No organomegaly. No abdominal bruits. Extremities: reveal no edema. No clubbing or cyanosis Neurologically awake, alert, oriented x2-3 with well-coordinated movements. No focal deficits noted Skin: No rash or skin lesions. Psychiatric: Coperative. Nonsuicidal, Musculoskeletal: No joint swelling or deformity. Normal range of motion. Results CBC & Chem 7: 07/07/22 02:06 07/07/22 02:06 Labs: Abnormal Lab Results - Last 24 Hours (Table) 07/06/22 07/06/22 07/06/22 Range/Units 13:00 13:00 13:00 WBC 16.0 H (3.8-10.6) k/uL Neutrophils # 14.0 H (1.3-7.7) k/uL Lymphocytes # 0.9 L (1.0-4.8) k/uL D-Dimer (<0.60) mg/L FEU ABG pH (7.35-7.45) ABG pCO2 (35-45) mmHg ABG Total CO2 (19-24) mmol/L ABG O2 Saturation (94-97) % Carbon Dioxide 20 L (22-30) mmol/L Glucose 171 H (74-99) mg/dL POC Glucose (mg/dL) (70-110) mg/dL Plasma Lactic Acid Saúl 2.7 H* (0.7-2.0) mmol/L Total Bilirubin 2.1 H (0.2-1.3) mg/dL Urine Protein (Negative) Urine Ketones (Negative) Urine Blood (Negative) Urine Mucus (None) /hpf 07/06/22 07/06/22 07/06/22 Range/Units 14:49 16:45 20:07 WBC (3.8-10.6) k/uL Neutrophils # (1.3-7.7) k/uL Lymphocytes # (1.0-4.8) k/uL D-Dimer 1.21 H (<0.60) mg/L FEU ABG pH (7.35-7.45) ABG pCO2 (35-45) mmHg ABG Total CO2 (19-24) mmol/L ABG O2 Saturation (94-97) % Carbon Dioxide (22-30) mmol/L Glucose (74-99) mg/dL POC Glucose (mg/dL) (70-110) mg/dL Plasma Lactic Acid Saúl 2.2 H* 2.2 H* (0.7-2.0) mmol/L Total Bilirubin (0.2-1.3) mg/dL Urine Protein (Negative) Urine Ketones (Negative) Urine Blood (Negative) Urine Mucus (None) /hpf 07/06/22 07/06/22 07/06/22 Range/Units 21:20 21:44 22:42 WBC (3.8-10.6) k/uL Neutrophils # (1.3-7.7) k/uL Lymphocytes # (1.0-4.8) k/uL D-Dimer (<0.60) mg/L FEU ABG pH (7.35-7.45) ABG pCO2 (35-45) mmHg ABG Total CO2 (19-24) mmol/L ABG O2 Saturation (94-97) % Carbon Dioxide (22-30) mmol/L Glucose (74-99) mg/dL POC Glucose (mg/dL) 160 H (70-110) mg/dL Plasma Lactic Acid Saúl 3.2 H* (0.7-2.0) mmol/L Total Bilirubin (0.2-1.3) mg/dL Urine Protein 1+ H (Negative) Urine Ketones 1+ H (Negative) Urine Blood Trace H (Negative) Urine Mucus Rare H (None) /hpf 07/07/22 07/07/22 07/07/22 Range/Units 02:06 02:06 02:06 WBC (3.8-10.6) k/uL Neutrophils # 9.0 H (1.3-7.7) k/uL Lymphocytes # 0.4 L (1.0-4.8) k/uL D-Dimer (<0.60) mg/L FEU ABG pH (7.35-7.45) ABG pCO2 (35-45) mmHg ABG Total CO2 (19-24) mmol/L ABG O2 Saturation (94-97) % Carbon Dioxide 21 L (22-30) mmol/L Glucose 183 H (74-99) mg/dL POC Glucose (mg/dL) (70-110) mg/dL Plasma Lactic Acid Saúl 2.1 H* (0.7-2.0) mmol/L Total Bilirubin (0.2-1.3) mg/dL Urine Protein (Negative) Urine Ketones (Negative) Urine Blood (Negative) Urine Mucus (None) /hpf 07/07/22 07/07/22 07/07/22 Range/Units 06:10 09:45 10:10 WBC (3.8-10.6) k/uL Neutrophils # (1.3-7.7) k/uL Lymphocytes # (1.0-4.8) k/uL D-Dimer (<0.60) mg/L FEU ABG pH 7.30 L (7.35-7.45) ABG pCO2 51 H (35-45) mmHg ABG Total CO2 26 H (19-24) mmol/L ABG O2 Saturation 98.5 H (94-97) % Carbon Dioxide (22-30) mmol/L Glucose (74-99) mg/dL POC Glucose (mg/dL) 179 H 143 H (70-110) mg/dL Plasma Lactic Acid Saúl (0.7-2.0) mmol/L Total Bilirubin (0.2-1.3) mg/dL Urine Protein (Negative) Urine Ketones (Negative) Urine Blood (Negative) Urine Mucus (None) /hpf Thrombosis Risk Factor Assmnt - Choose All That Apply Any of the Below Risk Factors Present?: Yes Each Factor Represents 1 point: Abnormal pulmonary function (COPD), Obesity (BMI >25) Other Risk Factors: Yes Each Risk Factor Represents 2 Points: Age 61-74 years Other congenital or acquired thrombophilia - If yes, enter type in comment: No Thrombosis Risk Factor Assessment Total Risk Factor Score: 4 Thrombosis Risk Factor Assessment Level: Moderate Risk Assessment and Plan Assessment: Acute hypoxic respiratory failure requiring BiPAP Worsening shortness of breath secondary to acute COPD and tracheobronchitis Supraventricular tachycardia on admission. Heart rate improved BPH Prior history of smoking History of throat cancer and vocal cord status postradiation 2016 DVT prophylaxis Plan: Patient will be continued telemetry monitoring. Was started on Cardizem drip with better control of heart rate. Patient will be continued Solu-Medrol, duo nebs and Symbicort. Patient is also on IV hydration with normal saline at 75 cc an hour. Currently on antibiotics in the form of ceftriaxone.. Cardiology and pulmonary is on board. Patient is being transferred to MICU. Time with Patient: Greater than 30
[2022-07-07] MEDS: SYMBICORT 160-4.5 MCG INHALER INHALATION SCH (21:42)
[2022-07-07] MEDS: ATORVASTATIN 10 MG TAB PO SCH (21:44)
[2022-07-08] MEDS: IPRATROPIUM-ALBUTEROL 3 ML NEB INHALATION SCH ×5 (03:35→19:37)
[2022-07-08] MEDS: methylPREDNISolone SOD SUCCI 125 MG/2 ML VIAL IV SCH ×4 (05:58→20:19)
[2022-07-08 06:45] LABS: Glucose,Whole Blood 239 mg/dL (70-110)
[2022-07-08] MEDS: DEXMEDETOMIDINE/0.9% NACL(PMX) 400 MCG in EMPTY BAG 1 BAG IV SCH (06:47)
[2022-07-08] MEDS: PANTOPRAZOLE 40 MG TABLET PO SCH (06:48)
[2022-07-08] MEDS: INSULIN ASPART (NovoLOG) 100 UNIT/ML VIAL SQ SCH ×4 (06:48→21:48)
[2022-07-08] MEDS: SYMBICORT 160-4.5 MCG INHALER INHALATION SCH (08:11)
[2022-07-08 08:55] LABS: HCT 39.5 % (39.0-53.0); HGB 13.2 gm/dL (13.0-17.5); MCH 30.9 pg (25.0-35.0); MCHC 33.5 g/dL (31.0-37.0); MCV 92.2 fL (80.0-100.0); Mean Platelet Volume 7.5; Platelet Count 244 k/uL (150-450); RBC 4.28 m/uL (4.30-5.90); RDW 12.5 % (11.5-15.5); WBC 6.1 k/uL (3.8-10.6)
[2022-07-08 08:58] LABS: African American GFR (CKD) >90 (>60 ml/min/1.73 sqM); Anion Gap 8 mmol/L; Blood Urea Nitrogen 40 mg/dL (9-20); Calcium 8.6 mg/dL (8.4-10.2); Carbon Dioxide 24 mmol/L (22-30); Chloride 112 mmol/L (98-107); Glucose 205 mg/dL (74-99); Magnesium 2.4 mg/dL (1.6-2.3); Non-African American GFR(CKD) 78 (>60 ml/min/1.73 sqM); Potassium 4.6 mmol/L (3.5-5.1); Sodium 144 mmol/L (137-145)
--- NOTE | 2022-07-08 09:08 | XR ---
EXAMINATION TYPE: XR chest 1V portable DATE OF EXAM: 07/08/2022 Comparison: 07/06/2022 Clinical History: 66-year-old male COPD Findings: Heart mildly enlarged. Hyperinflation. Some residual density remains at the right mid lung, improving from 07/06/2022. No pleural effusion. Impression: Mild cardiomegaly and COPD. There may be some residual but improving infiltrate at the right mid lung .
[2022-07-08] MEDS: HEPARIN SODIUM,PORCINE/PF 5,000 UNIT/0.5 ML SYRINGE SQ SCH ×2 (09:18→15:50)
[2022-07-08] MEDS: VERAPAMIL 40 MG TAB PO SCH ×2 (11:00→20:20)
--- NOTE | 2022-07-08 11:52 | PN ---
PROGRESS NOTE SUBJECTIVE: Mr. Leach is in sinus rhythm today. He was in SVT, came with exacerbation of COPD, has laryngeal CA. I am recommending we start him on verapamil 40 mg b.i.d. He is having difficulty breathing and he is also wheezing. He may have to go back on BiPAP. We will check an echo to assess LV function and also we will seek further input from Pulmonology. We will start him on verapamil 40 mg b.i.d., and once this is initiated, maybe later on the day, discontinue 5 mg of Cardizem drip. He is in sinus rhythm. OBJECTIVE: HEART: S1, S2 heard normally. Short systolic murmur along left sternal border. LUNGS: Reveal bilateral expiratory rhonchi and wheezing. ABDOMEN: Exam is unchanged. LOWER EXTREMITIES: Exam is unchanged. ASSESSMENT AND PLAN: The patient has laryngeal cancer with previous radiation; chronic obstructive pulmonary disease with exacerbation; supraventricular tachycardia, which has now converted to sinus rhythm. Prognosis remains guarded. MMODL / IJN: [id number] /
--- NOTE | 2022-07-08 12:02 | P.PN ---
Subjective Progress Note Date: 07/08/22 Principal diagnosis: SVT, COPD exacerbation. This is a 66-year-old white male with history of moderate severe COPD, benign prostatic hypertrophy, history of laryngeal cancer diagnosed back in 2017, patient underwent radiation treatment with full recovery. Patient presented to the ER yesterday, complaining mostly of cough wheezing shortness of breath, and upon his initial evaluation in the ER, patient was noted to be tachycardic and noted to be in supraventricular tachycardia. His heart rate was 160. Patient was hypertensive. And he was noted to have increased work of breathing. Patient received a adenosine, patient was placed on Cardizem drip at 15 mg per hour. Patient was admitted, and this consult was initiated. His COPD status was quite severe apparently and the patient was getting updraft treatment almost every 2 hours. Patient was also placed on BiPAP because he was noted to be quite dyspneic and in respiratory distress on nasal cannula. ABG on BiPAP showed a pO2 of 107 pCO2 51 pH of 7.31, and I got him down from 35% to 50%. I also arranged for the patient to transfer to the ICU as he was noted to seen to be quite dyspneic and his dyspnea was a bit of this proportional to his physical examination. CT angiogram of the chest done on his admission showed no evidence of pulmonary embolism, there was evidence of emphysema and mild pulmonary fibro sis. Progress note dated 07/08/2022. This is a 66-year-old male who was admitted to the hospital, on July 06, for SVT, and COPD exacerbation. He is seen today to 58. Currently, he is on 4 L of oxygen. He's been on BiPAP, with settings of 12/6 and 35%. He remains on dexmedetomidine at 0.5 mcg/kg/h, and Cardizem drip at 5 mg an hour, as well as saline at 10 mL an hour. The patient appears to be doing a bit better, and the goal today is to get him off the dexmedetomidine. White count 6.1, hemoglobin 13.2, hematocrit 39.5, and platelet count 244,000. Sodium 144, potassium 4.6, chlorides 112, CO2 24, BUN 40, creatinine 0.99. Chest x-ray shows some cardiomegaly, and changes of COPD. There is residual but improving infiltrate at the right midlung. Objective - Vital Signs Vital signs: Vital Signs Temp 96.2 F L 07/08/22 08:00 Pulse 73 07/08/22 11:00 Resp 21 07/08/22 11:00 BP 126/75 07/08/22 11:00 Pulse Ox 94 L 07/08/22 11:00 FiO2 35 07/08/22 10:00 Intake & Output 07/07/22 07/08/22 07/08/22 18:59 06:59 18:59 Intake Total 309.336 286.594 90.186 Output Total 525 265 180 Balance -215.664 21.594 -89.814 Weight 82.6 kg Intake: IV 40 0.9 KVO 40 Intake, IV Titration 309.336 286.594 50.186 Amount Dexmedetomidine/0.9% NaCl 13.336 132.594 40.186 (Pmx) 400 mcg In Empty Bag 1 bag @ 0.2 MCG/KG/HR 4.212 mls/hr IV .[id number] [facility] Rx#:[id number] Diltiazem 125 mg In 216 34 Sodium Chloride 0.9% 100 ml @ Per Protocol IV .Q0M [facility]IE Rx#:[id number] Sodium Chloride 0.9% 500 50 120 10 ml 500 ml @ 10 mls/hr IV .Q24H ALLIE Rx#:[id number] Sodium Chloride 0.9% 500 30 ml 500 ml @ 999 mls/hr IV .Q31M STA Rx#:[id number] Output: Urine 525 265 180 Other: Voiding Method Toilet Indwelling Catheter Indwelling Catheter Urinal - Exam No acute distress, sedated, on dexmedetomidine, currently on 4 L. HEENT examination is grossly unremarkable. Neck supple. Full range of motion. No adenopathy thyromegaly or neck vein distention. Cardiovascular examination reveals regular rhythm rate. S1-S2 normal. No S3 or S4. No discernible murmur noted. Heart sounds are distant. Heart Lungs reveal bilateral coarse inspiratory expiratory rhonchi, and expiratory wheezes. No crackles. Saturations are in the low 90s. Currently on 4 L of oxygen. Abdomen soft, without bowel sounds. No masses or tenderness. Extremities are intact. No cyanosis clubbing or edema. Skin is without rash or lesion. Neurologic examination is brief but nonfocal. - Labs CBC & Chem 7: 07/08/22 07:42 07/08/22 07:42 Labs: Abnormal Lab Results - Last 24 Hours (Table) 07/07/22 07/07/22 07/08/22 Range/Units 17:07 20:32 06:42 RBC (4.30-5.90) m/uL Chloride (98-107) mmol/L BUN (9-20) mg/dL Glucose (74-99) mg/dL POC Glucose (mg/dL) 195 H 176 H 239 H (70-110) mg/dL Magnesium (1.6-2.3) mg/dL 07/08/22 07/08/22 Range/Units 07:42 07:42 RBC 4.28 L (4.30-5.90) m/uL Chloride 112 H (98-107) mmol/L BUN 40 H (9-20) mg/dL Glucose 205 H (74-99) mg/dL POC Glucose (mg/dL) (70-110) mg/dL Magnesium 2.4 H (1.6-2.3) mg/dL Microbiology - Last 24 Hours (Table) 07/06/22 16:48 Blood Culture - Preliminary Blood No Growth after 24 hours 07/06/22 16:57 Blood Culture - Preliminary Blood No Growth after 24 hours Assessment and Plan Assessment: Acute hypoxemic respiratory failure secondary to COPD exacerbation. Acute tracheobronchitis. Supraventricular tachycardia. History of laryngeal carcinoma, in remission, status post radiation treatment, diagnosed in 2017. Acute hypercapnic respiratory failure secondary to severe COPD. Plan: Plan dated 07/08/2022. The patient remains on dexmedetomidine. We will attempt to get her off of that drug. There are other medications that we can use, to substitute for that medication. In addition, the patient remains on appropriate medications for his COPD exacerbation including Solu-Medrol. Labs, x-rays, and medications are reviewed. The patient remains on Rocephin empirically. He also remains on Pulmicort 1 mg mixed with formoterol 20 g, twice a day. We will continue to follow make recommendations along the way. Prognosis is guarded. Time with Patient: Greater than 30
--- NOTE | 2022-07-08 12:04 | CA ---
Transthoracic Echo Report Name: Maxx Leach Age: 66 Gender: M : 1955 Exam Date: 07/08/2022 09:51 Exam Location: [place] [facility] Ht (in): 67 Wt (lb): 182 Ordering Physician: Alexys Sauer MD ([id number]) Attending/Referring Phys: Licensed Mortician Renita Delgado RDCS Procedure CPT: Indications: LV function Cardiac Hx: Technical Quality: Technically difficult study Contrast 1: Lumason Total Dose (mL): 4 Contrast 2: Total Dose (mL): MEASUREMENTS (Male / Female) Normal Values 2D ECHO LV Diastolic Diameter PLAX 4.5 cm 4.2 - 5.9 / 3.9 - 5.3 cm LV Systolic Diameter PLAX 3.7 cm IVS Diastolic Thickness 1.2 cm 0.6 - 1.0 / 0.6 - 0.9 cm LVPW Diastolic Thickness 1.1 cm 0.6 - 1.0 / 0.6 - 0.9 cm LV Relative Wall Thickness 0.5 RV Internal Dim ED PLAX 3.5 cm M-MODE Aortic Root Diameter MM 3.1 cm LA Systolic Diameter MM 4.2 cm LA Ao Ratio MM 1.3 AV Cusp Separation MM 2.0 cm DOPPLER LVOT Peak Velocity 92.9 cm/s LVOT Peak Gradient 3.5 mmHg MV Area PHT 4.5 cm??? Mitral E Point Velocity 58.2 cm/s Mitral A Point Velocity 66.2 cm/s Mitral E to A Ratio 0.9 MV Deceleration Time 168.3 ms MV E' Velocity 5.0 cm/s Mitral E to MV E' Ratio 11.6 TR Peak Velocity 265.6 cm/s TR Peak Gradient 28.2 mmHg Right Ventricular Systolic Press 33.2 mmHg FINDINGS Left Ventricle Mildly increased septal wall thickness. Left ventricular ejection fraction is estimated at 55-60 %. Right Ventricle Mild right ventricular dilatation. Right ventricular systolic pressure within normal limits. Right Atrium Normal right atrial size. Left Atrium Left atrium not well visualized. Mitral Valve Structurally normal mitral valve. Mild mitral regurgitation. Aortic Valve Trileaflet aortic valve. Tricuspid Valve Mild tricuspid regurgitation.structurally normal tricuspid valve. Pulmonic Valve Pulmonic valve not well visualized. Pericardium Small pericardial effusion. Aorta Normal size aortic root and proximal ascending aorta. CONCLUSIONS 1. Normal left ventricle size and systolic function 2. Mild mitral and tricuspid regurgitation 3. Small pericardial effusion. Previewed by: Dr. Phil Amaya MD (Electronically Signed) Final Date: 08 July 2022 12:03
--- NOTE | 2022-07-08 12:25 | XR ---
EXAMINATION TYPE: XR abdomen 1V DATE OF EXAM: 07/08/2022 Comparison: None Clinical History: 66 year-old male abdominal distention Findings: Some scattered prominent small bowel loops measuring up to 3.1 cm on the left side of the abdomen. Sc attered colonic air is present as well. Mild stool within the right side of the abdomen. Some segment s of colon are distended up to 8.2 cm. No definite suspicious calcification. Impression: Mildly distended small bowel loops and some segments of colon as well. Consider generalized ileus. Fo llow-up to exclude the possibility of a distal colonic obstruction.
[2022-07-08 12:47] LABS: Glucose,Whole Blood 159 mg/dL (70-110)
[2022-07-08] MEDS: SODIUM CHLORIDE 0.9% 500 ML 500 ML IV SCH (12:47)
--- NOTE | 2022-07-08 16:38 | P.PN ---
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 Patient tried breathing treatments at home without much relief. Patient was tachycardic on admission with heart rate in 160s and was found to be SVT patient was given Ellenson in the ER. Otherwise denied any complaints of chest pain. No nausea vomiting or abdominal pain. Denied any increased leg swelling. No fever no chills. No prior history of SVT. Chest x-ray showed COPD. No active cardiopulmonary disease. Mild pulmonary fibrotic changes. No significant change. CTA chest showed no evidence of PE. Emphysema and mild pulmonary fibrosis. No suspicious pulmonary mass. Laboratory data showed WBC 16.0 hemoglobin 16.0 and platelets 269 Sodium 139 potassium four-point 102 bicarb is 20 BUN 16 and creatinine 0.87 and lactic acid 2.7 Troponin x1 negative and proBNP is 378 TSH 0.49 6 Coronavirus and influenza AMB not detected. Urinalysis is negative for infection. 07/08/2022 Patient continues to be monitored in intensive care unit mostly on BiPAP support but able to be weaned to 3 to 4 L of oxygen via nasal cannula. He is unsure when he has had bowel movement and has limited to no bowel sounds for this reason abdominal xray has been performed showing mildly distended small bowel loops and some segments of colon as well. Consider generalized ileus and difficult to exclude the possibility of a distal colonic obstruction. White blood cell count today 6.1, sodium 144, potassium 4.6, BUN 40, creatinine 0.99, blood glucose 150, magnesium 2.4. Procalcitonin 0.55. Vitals today, patient is afebrile, heart rate 71, blood pressure 121/64, 95% oxygen saturation. Patient has been m aintained on dexmedetomidine for acute anxiety which is currently paused. Continues on IV Solu-Medrol, and bronchodilators. Patient is currently on IV cardizem gtt for tachycardia and will be transitioned to oral verapamil today, cardiology is following. Review of Systems Constitutional: Denied any fatigue denied any fever Cardio vascular: denied any chest pain, palpitations Gastrointestinal: denied any nausea, vomiting, diarrhea Pulmonary: Denied any shortness of breath cough Neurologic denied any new focal deficits All inpatient medications were reviewed and appropriate changes in these medications as dictated in the interval history and assessment and plan. PHYSICAL EXAMINATION: Patient is lying in the bed comfortably, no acute distress, awake alert and oriented.. On BiPAP. HEENT: Normocephalic. Neck is supple. Pupils reactive. Nostrils clear. Oral cavity is moist. Neck reveals no JVD, carotid bruits, or thyromegaly. CHEST EXAMINATION: Trachea is central. Symmetrical expansion. Bilateral diminished sounds and diffuse wheezing. Scattered rhonchi.. CARDIAC: Normal S1, S2 with no gallops. No murmurs ABDOMEN: Soft. Bowel sounds present. Nontender. No organomegaly. No abdominal bruits. Extremities: reveal no edema. No clubbing or cyanosis Neurologically awake, alert, oriented x2-3 with well-coordinated movements. No focal deficits noted Skin: No rash or skin lesions. Psychiatric: Coperative. Nonsuicidal, Musculoskeletal: No joint swelling or deformity. Normal range of motion. Assessment and Plan Assessment Acute hypoxic respiratory failure requiring BiPAP Worsening shortness of breath secondary to acute COPD exacerbation and tracheobronchitis Supraventricular tachycardia on admission. Heart rate improved on IV cardizem. BPH Prior history of smoking History of throat cancer and vocal cord status post radiation 2016 DVT prophylaxis GI prophyalxis Full Code Plan: Patient will be continued telemetry monitoring. Was started on Cardizem drip with better control of heart rate, cardiology transitioning to oral verapamil today. Patient will be continued Solu-Medrol, duo nebs and Symbicort. Patient is also on IV hydration with normal saline at 75 cc an hour. Currently on antibiotics in the form of ceftriaxone. Cardiology and pulmonary is on board. Patient is placed NPO except ice chips and lactulose ordered Follow up in AM may need surgical consultation for possible ileus. The impression and plan of care has been dictated by Maria De Jesus Mccoy Nurse Practitioner as directed. Dr. Alison MD I have performed a history and physical examination and medical decision making of this patient, discussed the same with the dictator, and agree with the dictators assessment and plan as written, documented as a scribe. Based on total visit time, I have performed more than 50% of this visit. Objective - Vital Signs Vital signs: Vital Signs Temp 97.6 F 07/08/22 12:00 Pulse 71 07/08/22 15:56 Resp 22 07/08/22 15:00 BP 121/64 07/08/22 15:00 Pulse Ox 95 07/08/22 15:00 FiO2 30 07/08/22 15:53 Intake & Output 07/07/22 07/08/22 07/08/22 18:59 06:59 18:59 Intake Total 309.336 286.594 128.329 Output Total 525 265 290 Balance -215.664 21.594 -161.671 Weight 82.6 kg Intake: IV 70 0.9 KVO 70 Intake, IV Titration 309.336 286.594 58.329 Amount Dexmedetomidine/0.9% NaCl 13.336 132.594 48.329 (Pmx) 400 mcg In Empty Bag 1 bag @ 0.2 MCG/KG/HR 4.212 mls/hr IV .[id number] [facility] Rx#:[id number] Diltiazem 125 mg In 216 34 Sodium Chloride 0.9% 100 ml @ Per Protocol IV .Q0M ALLIE Rx#:[id number] Sodium Chloride 0.9% 500 50 120 10 ml 500 ml @ 10 mls/hr IV .Q24H ALLIE Rx#:[id number] Sodium Chloride 0.9% 500 30 ml 500 ml @ 999 mls/hr IV .Q31M STA Rx#:[id number] Output: Urine 525 265 290 Other: Voiding Method Toilet Indwelling Catheter Indwelling Catheter Urinal - Labs CBC & Chem 7: 07/08/22 07:42 07/08/22 07:42 Labs: Abnormal Lab Results - Last 24 Hours (Table) 07/07/22 07/07/22 07/08/22 Range/Units 17:07 20:32 06:42 RBC (4.30-5.90) m/uL Chloride (98-107) mmol/L BUN (9-20) mg/dL Glucose (74-99) mg/dL POC Glucose (mg/dL) 195 H 176 H 239 H (70-110) mg/dL Magnesium (1.6-2.3) mg/dL Procalcitonin (0.02-0.09) ng/mL 07/08/22 07/08/22 07/08/22 Range/Units 07:42 07:42 07:42 RBC 4.28 L (4.30-5.90) m/uL Chloride 112 H (98-107) mmol/L BUN 40 H (9-20) mg/dL Glucose 205 H (74-99) mg/dL POC Glucose (mg/dL) (70-110) mg/dL Magnesium 2.4 H (1.6-2.3) mg/dL Procalcitonin 0.55 H (0.02-0.09) ng/mL 07/08/22 Range/Units 12:46 RBC (4.30-5.90) m/uL Chloride (98-107) mmol/L BUN (9-20) mg/dL Glucose (74-99) mg/dL POC Glucose (mg/dL) 159 H (70-110) mg/dL Magnesium (1.6-2.3) mg/dL Procalcitonin (0.02-0.09) ng/mL Microbiology - Last 24 Hours (Table) 07/06/22 16:48 Blood Culture - Preliminary Blood No Growth after 24 hours 07/06/22 16:57 Blood Culture - Preliminary Blood No Growth after 24 hours Assessment and Plan Time with Patient: Less than 30
[2022-07-08 16:40] LABS: Glucose,Whole Blood 167 mg/dL (70-110)
[2022-07-08] MEDS: BUDESONIDE 1 MG/2 ML NEBU INHALATION SCH (19:37)
[2022-07-08] MEDS: FORMOTEROL FUMARATE 20 MCG/2 ML NEBU INHALATION SCH (19:37)
[2022-07-08] MEDS: LORazepam 1 MG/0.5 ML VIAL IV PRN (20:20)
[2022-07-08] MEDS: ATORVASTATIN 10 MG TAB PO SCH (20:20)
[2022-07-08 20:24] LABS: Glucose,Whole Blood 149 mg/dL (70-110)
[2022-07-09] MEDS: HEPARIN SODIUM,PORCINE/PF 5,000 UNIT/0.5 ML SYRINGE SQ SCH ×3 (00:13→15:22)
[2022-07-09] MEDS: IPRATROPIUM-ALBUTEROL 3 ML NEB INHALATION PRN (00:33)
[2022-07-09] MEDS: LORazepam 1 MG/0.5 ML VIAL IV PRN ×3 (02:04→20:35)
[2022-07-09] MEDS: VERAPAMIL 40 MG TAB PO SCH ×3 (02:16→15:22)
[2022-07-09] MEDS: methylPREDNISolone SOD SUCCI 125 MG/2 ML VIAL IV SCH ×4 (03:55→20:35)
[2022-07-09 06:06] LABS: Basophils % (A) 0 %; Eosinophils % (A) 0 %; HCT 41.6 % (39.0-53.0); HGB 13.9 gm/dL (13.0-17.5); Lymphocytes # (A) 0.3 k/uL (1.0-4.8); Lymphocytes % (A) 3 %; MCH 30.1 pg (25.0-35.0); MCHC 33.4 g/dL (31.0-37.0); MCV 90.2 fL (80.0-100.0); Mean Platelet Volume 7.2; Monocytes # (A) 0.6 k/uL (0-1.0); Monocytes % (A) 5 %; Neutrophils # (A) 11.4 k/uL (1.3-7.7); Neutrophils % (A) 91 %; Platelet Count 293 k/uL (150-450); RBC 4.61 m/uL (4.30-5.90); WBC 12.4 k/uL (3.8-10.6)
[2022-07-09 06:15] LABS: Calcium 8.5 mg/dL (8.4-10.2); Magnesium 2.3 mg/dL (1.6-2.3); Potassium 4.2 mmol/L (3.5-5.1)
[2022-07-09] MEDS: PANTOPRAZOLE 40 MG TABLET PO SCH (07:02)
[2022-07-09 07:03] LABS: Glucose,Whole Blood 198 mg/dL (70-110)
[2022-07-09] MEDS: INSULIN ASPART (NovoLOG) 100 UNIT/ML VIAL SQ SCH ×4 (07:04→20:54)
[2022-07-09] MEDS: BUDESONIDE 1 MG/2 ML NEBU INHALATION SCH ×2 (07:36→20:02)
[2022-07-09] MEDS: IPRATROPIUM-ALBUTEROL 3 ML NEB INHALATION SCH ×4 (07:36→20:02)
[2022-07-09] MEDS: FORMOTEROL FUMARATE 20 MCG/2 ML NEBU INHALATION SCH ×2 (07:36→20:02)
--- NOTE | 2022-07-09 07:46 | XR ---
EXAMINATION TYPE: XR chest 1V DATE OF EXAM: 07/09/2022 CLINICAL HISTORY: Difficulty breathing progress study. COPD exacerbation TECHNIQUE: 2 AP portable semiupright views of the chest are obtained. COMPARISON: Chest x-ray from one day earlier and older studies. FINDINGS: Background chronic emphysematous change redemonstrated. Increased opacity periphery of the mid lungs bilaterally and left lung base remains present consistent with focal fibrotic change. No ne w focal airspace opacity, pleural effusion, or pneumothorax. Stable cardiomegaly. Osseous structures are intact. IMPRESSION: Chronic emphysematous and pulmonary fibrotic changes without new acute infiltrate.
[2022-07-09] MEDS ORDERED: ACETAMINOPHEN IV (For NPO) 1,000 MG in EMPTY BAG 1 BAG IVPB PRN (08:58)
[2022-07-09] MEDS: hydrALAZINE HCL 50 MG TAB PO SCH ×2 (09:11→20:34)
[2022-07-09] MEDS: QUEtiapine 50 MG TAB PO SCH ×2 (09:12→15:22)
--- NOTE | 2022-07-09 11:16 | P.PN ---
Subjective Progress Note Date: 07/09/22 Principal diagnosis: SVT, COPD exacerbation. This is a 66-year-old white male with history of moderate severe COPD, benign prostatic hypertrophy, history of laryngeal cancer diagnosed back in 2017, patient underwent radiation treatment with full recovery. Patient presented to the ER yesterday, complaining mostly of cough wheezing shortness of breath, and upon his initial evaluation in the ER, patient was noted to be tachycardic and noted to be in supraventricular tachycardia. His heart rate was 160. Patient was hypertensive. And he was noted to have increased work of breathing. Patient received a adenosine, patient was placed on Cardizem drip at 15 mg per hour. Patient was admitted, and this consult was initiated. His COPD status was quite severe apparently and the patient was getting updraft treatment almost every 2 hours. Patient was also placed on BiPAP because he was noted to be quite dyspneic and in respiratory distress on nasal cannula. ABG on BiPAP showed a pO2 of 107 pCO2 51 pH of 7.31, and I got him down from 35% to 50%. I also arranged for the patient to transfer to the ICU as he was noted to seen to be quite dyspneic and his dyspnea was a bit of this proportional to his physical examination. CT angiogram of the chest done on his admission showed no evidence of pulmonary embolism, there was evidence of emphysema and mild pulmonary fibro sis. Progress note dated 07/08/2022. This is a 66-year-old male who was admitted to the hospital, on July 06, for SVT, and COPD exacerbation. He is seen today to 58. Currently, he is on 4 L of oxygen. He's been on BiPAP, with settings of 12/6 and 35%. He remains on dexmedetomidine at 0.5 mcg/kg/h, and Cardizem drip at 5 mg an hour, as well as saline at 10 mL an hour. The patient appears to be doing a bit better, and the goal today is to get him off the dexmedetomidine. White count 6.1, hemoglobin 13.2, hematocrit 39.5, and platelet count 244,000. Sodium 144, potassium 4.6, chlorides 112, CO2 24, BUN 40, creatinine 0.99. Chest x-ray shows some cardiomegaly, and changes of COPD. There is residual but improving infiltrate at the right midlung. Progress note dated 07/09/2022. 66-year-old male, again seen in room 258. The patient's on BiPAP, with settings of 12/6 and 35%. The patient's getting saline at KVO, and dexmedetomidine at 0.4 mcg/kg/h. We will attempted DC the dexmedetomidine, but given the patient's Seroquel, 50 mg 3 times a day, as well as when necessary Haldol. In addition, I told the nurse that she could use a small amount of Ativan when necessary. Whi te count 12.4, implement 13.9, hematocrit 41.6, and platelet count is normal. Sodium 145, potassium 4.2, chlorides 109, CO2 27, with a BUN of 41 and a creatinine of 1.01. Chest x-ray shows chronic emphysematous changes. Objective - Vital Signs Vital signs: Vital Signs Temp 98.0 F 07/09/22 08:00 Pulse 81 07/09/22 10:00 Resp 23 07/09/22 10:00 BP 145/82 07/09/22 10:00 Pulse Ox 94 L 07/09/22 10:00 FiO2 35 07/09/22 08:52 Intake & Output 07/08/22 07/09/22 07/09/22 18:59 06:59 18:59 Intake Total 158.329 122.007 180.672 Output Total 415 715 230 Balance -256.671 -592.993 -49.328 Weight 83.7 kg Intake: IV 100 110 60 0.9 KVO 100 110 60 Intake, IV Titration 58.329 12.007 20.672 Amount Dexmedetomidine/0.9% NaCl 48.329 12.007 20.672 (Pmx) 400 mcg In Empty Bag 1 bag @ 0.2 MCG/KG/HR 4.212 mls/hr IV .[id number] [facility] Rx#:[id number] Sodium Chloride 0.9% 500 10 ml 500 ml @ 10 mls/hr IV .Q24H ALLIE Rx#:[id number] Oral 100 Output: Urine 415 715 230 Other: Voiding Method Indwelling Catheter Indwelling Catheter Indwelling Catheter - Exam No acute distress, sedated, on dexmedetomidine, currently on BiPAP. HEENT examination is grossly unremarkable. Neck supple. Full range of motion. No adenopathy thyromegaly or neck vein distention. Cardiovascular examination reveals regular rhythm rate. S1-S2 normal. No S3 or S4. No discernible murmur noted. Heart sounds are distant. Heart rate is 81 bpm. Lungs reveal bilateral coarse inspiratory expiratory rhonchi, and expiratory wheezes. No crackles. Saturations are in the mid 90s on BiPAP. Abdomen soft, without bowel sounds. No masses or tenderness. Extremities are intact. No cyanosis clubbing or edema. Skin is without rash or lesion. Neurologic examination is difficult to assess. - Labs CBC & Chem 7: 07/09/22 05:38 07/09/22 05:38 Labs: Abnormal Lab Results - Last 24 Hours (Table) 07/08/22 07/08/22 07/08/22 Range/Units 07:42 12:46 16:38 WBC (3.8-10.6) k/uL Neutrophils # (1.3-7.7) k/uL Lymphocytes # (1.0-4.8) k/uL Chloride (98-107) mmol/L BUN (9-20) mg/dL Glucose (74-99) mg/dL POC Glucose (mg/dL) 159 H 167 H (70-110) mg/dL Procalcitonin 0.55 H (0.02-0.09) ng/mL 07/08/22 07/09/22 07/09/22 Range/Units 20:23 05:38 05:38 WBC 12.4 H (3.8-10.6) k/uL Neutrophils # 11.4 H (1.3-7.7) k/uL Lymphocytes # 0.3 L (1.0-4.8) k/uL Chloride 109 H (98-107) mmol/L BUN 41 H (9-20) mg/dL Glucose 185 H (74-99) mg/dL POC Glucose (mg/dL) 149 H (70-110) mg/dL Procalcitonin (0.02-0.09) ng/mL 07/09/22 Range/Units 07:01 WBC (3.8-10.6) k/uL Neutrophils # (1.3-7.7) k/uL Lymphocytes # (1.0-4.8) k/uL Chloride (98-107) mmol/L BUN (9-20) mg/dL Glucose (74-99) mg/dL POC Glucose (mg/dL) 198 H (70-110) mg/dL Procalcitonin (0.02-0.09) ng/mL Microbiology - Last 24 Hours (Table) 07/06/22 16:57 Blood Culture - Preliminary Blood No Growth after 48 hours 07/06/22 16:48 Blood Culture - Preliminary Blood No Growth after 48 hours Assessment and Plan Assessment: Acute hypoxemic respiratory failure secondary to COPD exacerbation. Acute tracheobronchitis. Supraventricular tachycardia. History of laryngeal carcinoma, in remission, status post radiation treatment, diagnosed in 2017. Acute hypercapnic respiratory failure secondary to severe COPD. Plan: Plan dated 07/08/2022. The patient remains on dexmedetomidine. We will attempt to get her off of that drug. There are other medications that we can use, to substitute for that medication. In addition, the patient remains on appropriate medications for his COPD exacerbation including Solu-Medrol. Labs, x-rays, and medications are reviewed. The patient remains on Rocephin empirically. He also remains on Pulmicort 1 mg mixed with formoterol 20 g, twice a day. We will continue to follow make recommendations along the way. Prognosis is guarded. Plan dated 07/09/2022. Labs, x-rays, and medications are reviewed. The patient remains on dexmede tomidine. I've given the nurses some orders for Seroquel, and Haldol, to get the patient off of dexmedetomidine. The patient's getting saline at KVO. The patient's currently on BiPAP, 12/6, and 35%. We will continue to follow make recommendations along the way. The patient remains on Rocephin empirically. Culture data is negative. Chest x-ray is evaluated. Prognosis is certainly guarded. Time with Patient: Less than 30
[2022-07-09] MEDS: HALOPERIDOL LACTATE 5 MG/ML 1 ML VIAL IVP PRN ×2 (11:33→17:31)
[2022-07-09 11:55] LABS: Glucose,Whole Blood 162 mg/dL (70-110)
[2022-07-09] MEDS: SODIUM CHLORIDE 0.9% 500 ML 500 ML IV SCH (12:15)
--- NOTE | 2022-07-09 14:23 | P.GSCN ---
History of Present Illness Consult date: 07/09/22 History of present illness: CHIEF COMPLAINT: Shortness of breath HISTORY OF PRESENT ILLNESS: This is a 66-year-old male who presented to the hospital worsening shortness of breath is being treated for COPD exacerbation with bronchitis. Also had evidence of SVT. Patient is currently requiring BiPAP. He is followed by pulmonary service and cardiology service. Patient has been 4 days without a bowel movement. Patient had abdominal x-ray on 07/08/2022 which showed mildly distended small bowel loops consult as segments of colon. Consider generalized ileus. Patient's abdomen is distended. No nausea or vomiting reported. He is currently nothing by mouth. Patient had been agitated during the night and has been started on Seroquel. He is currently resting this morning. Per nursing no complaints of pain. 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 PAST MEDICAL HISTORY: COPD, prostate disorder, laryngeal cancer with previous radiation treatment PAST SURGICAL HISTORY: See below MEDICATIONS: See below ALLERGIES: See below SOCIAL HISTORY: No illicit drug use. REVIEW OF SYSTEMS: CONSTITUTIONAL: Denies fever or chills. HEENT: Denies blurred vision, vision changes, or eye pain. Denies hemoptysis CARDIOVASCULAR: Denies chest pain or pressure. RESPIRATORY: No shortness of breath. GASTROINTESTINAL: See HPI for pertinent findings HEMATOLOGIC: Denies bleeding disorders. GENITOURINARY: Denies any blood in urine or increased urinary frequency. SKIN: Denies pruitis. Denies rash. PHYSICAL EXAM: VITAL SIGNS: Reviewed GENERAL: Well-developed in no acute distress. HEENT: No sclera icterus. Extraocular movements grossly intact. Moist buccal mucosa. Head is atraumatic, normocephalic. No nasal drainage. ABDOMEN: Soft. Distended. Nontender. NEUROLOGIC: Patient sleeping comfortably LABORATORY DATA: WBC 12.4 hemoglobin 13.9 platelets 293 creatinine 1.01 Lactic acid 3.2 down to 1.8 Pro-calcitonin 0.55 IMAGING: Abdominal x-ray mildly distended small bowel loops and some segments of colon as well. Consider generalized ileus. Follow-up to exclude the possibility of a distal colonic obstruction. ASSESSMENT: 1. Ileus. Mildly distended small bowel loops and some segments of colon PLAN: -Continue supportive care -Ok for lactulose -keep patient NPO -Further recommendations forthcoming per surgeon Physician Criminal Court Judge note has been reviewed by physician. Signing provider agrees with the documented findings, assessment, and plan of care. 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) History of Any Multi-Drug Resistant Organisms: None Reported Past Surgical History: No Surgical Hx Reported Additional Past Surgical History / Comment(s): SX INFANT "CORD STRANGLED BOWEL", HAS HAD TOOTH EXTRACTION WITH ANESTHESIA Past Anesthesia/Blood Transfusion Reactions: Unable to Obtain Additional Past Anesthesia/Blood Transfusion Reaction / Comm: patient has not received blood or anesthetic Smoking Status: Former smoker - Past Family History Father Family Medical History: No Reported History Mother Family Medical History: No Reported History Medications and Allergies Home Medications Medication Instructions Recorded Confirmed Type Albuterol Inhaler [Ventolin Hfa 2 puff INHALATION RT-QID PRN 05/01/17 07/06/22 History Inhaler] Fluticasone Propion/Salmeterol 1 puff INHALATION RT-DAILY 07/06/22 07/06/22 History [Advair 250-50 Diskus] Ipratropium-Albuterol Nebulize 3 ml INHALATION RT-QID PRN 07/06/22 07/06/22 History [Duoneb 0.5 mg-3 mg/3 ml Soln] Omeprazole 20 mg PO DAILY 07/06/22 07/06/22 History Simvastatin [Zocor] 20 mg PO HS 07/06/22 07/06/22 History Allergies Allergy/AdvReac Type Severity Reaction Status Date / Time No Known Allergies Allergy Verified 07/06/22 16:49 Surgical - Exam Vital Signs Temp Pulse Resp BP Pulse Ox 98.7 F 160 H 30 H 189/113 97 07/06/22 12:45 07/06/22 12:45 07/06/22 12:45 07/06/22 12:45 07/06/22 12:45 Results - Labs 07/09/22 05:38 07/09/22 05:38 Abnormal Lab Results - Last 24 Hours (Table) 07/08/22 07/08/22 07/08/22 Range/Units 07:42 12:46 16:38 WBC (3.8-10.6) k/uL Neutrophils # (1.3-7.7) k/uL Lymphocytes # (1.0-4.8) k/uL Chloride (98-107) mmol/L BUN (9-20) mg/dL Glucose (74-99) mg/dL POC Glucose (mg/dL) 159 H 167 H (70-110) mg/dL Procalcitonin 0.55 H (0.02-0.09) ng/mL 07/08/22 07/09/22 07/09/22 Range/Units 20:23 05:38 05:38 WBC 12.4 H (3.8-10.6) k/uL Neutrophils # 11.4 H (1.3-7.7) k/uL Lymphocytes # 0.3 L (1.0-4.8) k/uL Chloride 109 H (98-107) mmol/L BUN 41 H (9-20) mg/dL Glucose 185 H (74-99) mg/dL POC Glucose (mg/dL) 149 H (70-110) mg/dL Procalcitonin (0.02-0.09) ng/mL 07/09/22 Range/Units 07:01 WBC (3.8-10.6) k/uL Neutrophils # (1.3-7.7) k/uL Lymphocytes # (1.0-4.8) k/uL Chloride (98-107) mmol/L BUN (9-20) mg/dL Glucose (74-99) mg/dL POC Glucose (mg/dL) 198 H (70-110) mg/dL Procalcitonin (0.02-0.09) ng/mL Microbiology - Last 24 Hours (Table) 07/06/22 16:57 Blood Culture - Preliminary Blood No Growth after 48 hours 07/06/22 16:48 Blood Culture - Preliminary Blood No Growth after 48 hours Diabetes panel 07/09/22 Range/Units 05:38 Sodium 145 (137-145) mmol/L Potassium 4.2 (3.5-5.1) mmol/L Chloride 109 H (98-107) mmol/L Carbon Dioxide 27 (22-30) mmol/L BUN 41 H (9-20) mg/dL Creatinine 1.01 (0.66-1.25) mg/dL Glucose 185 H (74-99) mg/dL Calcium 8.5 (8.4-10.2) mg/dL Calcium panel 07/09/22 Range/Units 05:38 Calcium 8.5 (8.4-10.2) mg/dL Pituitary panel 07/09/22 Range/Units 05:38 Sodium 145 (137-145) mmol/L Potassium 4.2 (3.5-5.1) mmol/L Chloride 109 H (98-107) mmol/L Carbon Dioxide 27 (22-30) mmol/L BUN 41 H (9-20) mg/dL Creatinine 1.01 (0.66-1.25) mg/dL Glucose 185 H (74-99) mg/dL Calcium 8.5 (8.4-10.2) mg/dL Adrenal panel 07/09/22 Range/Units 05:38 Sodium 145 (137-145) mmol/L Potassium 4.2 (3.5-5.1) mmol/L Chloride 109 H (98-107) mmol/L Carbon Dioxide 27 (22-30) mmol/L BUN 41 H (9-20) mg/dL Creatinine 1.01 (0.66-1.25) mg/dL Glucose 185 H (74-99) mg/dL Calcium 8.5 (8.4-10.2) mg/dL
--- NOTE | 2022-07-09 14:28 | P.PN ---
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 Patient tried breathing treatments at home without much relief. Patient was tachycardic on admission with heart rate in 160s and was found to be SVT patient was given Ellenson in the ER. Otherwise denied any complaints of chest pain. No nausea vomiting or abdominal pain. Denied any increased leg swelling. No fever no chills. No prior history of SVT. Chest x-ray showed COPD. No active cardiopulmonary disease. Mild pulmonary fibrotic changes. No significant change. CTA chest showed no evidence of PE. Emphysema and mild pulmonary fibrosis. No suspicious pulmonary mass. Laboratory data showed WBC 16.0 hemoglobin 16.0 and platelets 269 Sodium 139 potassium four-point 102 bicarb is 20 BUN 16 and creatinine 0.87 and lactic acid 2.7 Troponin x1 negative and proBNP is 378 TSH 0.49 6 Coronavirus and influenza AMB not detected. Urinalysis is negative for infection. 07/08/2022 Patient continues to be monitored in intensive care unit mostly on BiPAP support but able to be weaned to 3 to 4 L of oxygen via nasal cannula. He is unsure when he has had bowel movement and has limited to no bowel sounds for this reason abdominal xray has been performed showing mildly distended small bowel loops and some segments of colon as well. Consider generalized ileus and difficult to exclude the possibility of a distal colonic obstruction. White blood cell count today 6.1, sodium 144, potassium 4.6, BUN 40, creatinine 0.99, blood glucose 150, magnesium 2.4. Procalcitonin 0.55. Vitals today, patient is afebrile, heart rate 71, blood pressure 121/64, 95% oxygen saturation. Patient has been m aintained on dexmedetomidine for acute anxiety which is currently paused. Continues on IV Solu-Medrol, and bronchodilators. Patient is currently on IV cardizem gtt for tachycardia and will be transitioned to oral verapamil today, cardiology is following. 07/09/2022 Patient continues to be monitored in intensive care unit. White count elevated up to 12.4 today he has expiratory wheezing on exam changed from yesterday. Patient requiring bipap at 35% FiO2 currently. He did have low grade fever this morning 99 and is receiving acetaminophen as needed. chest xray today showing chronic emphysema and pulmonary fibrotic change. Procalcitonin level elevated at 0.55. IV ceftriaxone increased to 2 gram every 24 hours. Patient is continued on bronchodilators. Continues on IV solumedrol 60 mg q6h. Dexmedetomidine possibly being weaned off today, seroquel and haldol ordered with ativan as needed. P atient continues with significant abdominal distention and absent bowel sounds left lower quadrant. Did not receive lactulose yesterday. General surgery was consulted for further evaluation, currently placed NPO for possible ileus /bowel obstruction. He is hypertensive today with systolic in the 180s has been started on verapamil TID and also hydralazine 50 BID. Cardiology following. Unable to complete review of systems today, patient is sedated on bipap. PHYSICAL EXAMINATION: Patient is lying in the bed comfortably, no acute distress, sedated On BiPAP. HEENT: Normocephalic. Neck is supple. Pupils reactive. Nostrils clear. Oral cavity is moist. Neck reveals no JVD, carotid bruits, or thyromegaly. CHEST EXAMINATION: Trachea is central. Symmetrical expansion. Bilateral diminished sounds and diffuse wheezing. Scattered rhonchi.. CARDIAC: Normal S1, S2 with no gallops. No murmurs ABDOMEN: Soft. Bowel sounds present. Nontender. No organomegaly. No abdominal bruits. Extremities: reveal no edema. No clubbing or cyanosis Neurologically awake, alert, oriented x2-3 with well-coordinated movements. No focal deficits noted Skin: No rash or skin lesions. Psychiatric: Coperative. Nonsuicidal, Musculoskeletal: No joint swelling or deformity. Normal range of motion. Assessment and Plan Assessment Acute hypoxic respiratory failure requiring BiPAP Worsening shortness of breath secondary to acute COPD exacerbation and tracheobronchitis Supraventricular tachycardia on admission. Heart rate improved on IV cardizem. Hypertension Rule out ileus and bowel obstruction BPH Prior history of smoking History of throat cancer and vocal cord status post radiation 2016 DVT prophylaxis GI prophyalxis Full Code Plan: Patient will be continued telemetry monitoring. Cardiology adjusting medications Patient will be continued Solu-Medrol, duo nebs and Symbicort. Currently on antibiotics in the form of ceftriaxone. Cardiology and pulmonary following Surgical consultation in place, patient is currently NPO. The impression and plan of care has been dictated by Maria De Jesus Mccoy, Nurse Practitioner as directed. Dr. Alison MD I have performed a history and physical examination and medical decision making of this patient, discussed the same with the dictator, and agree with the dictators assessment and plan as written, documented as a scribe. Based on total visit time, I have performed more than 50% of this visit. Objective - Vital Signs Vital signs: Vital Signs Temp 97.5 F L 07/09/22 12:00 Pulse 110 H 07/09/22 12:05 Resp 27 H 07/09/22 12:00 BP 186/91 07/09/22 12:00 Pulse Ox 93 L 07/09/22 12:00 FiO2 35 07/09/22 12:00 Intake & Output 07/08/22 07/09/22 07/09/22 18:59 06:59 18:59 Intake Total 158.329 122.007 200.672 Output Total 415 715 305 Balance -256.671 -592.993 -104.328 Weight 83.7 kg Intake: IV 100 110 80 0.9 KVO 100 110 80 Intake, IV Titration 58.329 12.007 20.672 Amount Dexmedetomidine/0.9% NaCl 48.329 12.007 20.672 (Pmx) 400 mcg In Empty Bag 1 bag @ 0.2 MCG/KG/HR 4.212 mls/hr IV .[id number] [facility] Rx#:[id number] Sodium Chloride 0.9% 500 10 ml 500 ml @ 10 mls/hr IV .Q24H [facility] Rx#:[id number] Oral 100 Output: Urine 415 715 305 Other: Voiding Method Indwelling Catheter Indwelling Catheter Indwelling Catheter - Labs CBC & Chem 7: 07/09/22 05:38 07/09/22 05:38 Labs: Abnormal Lab Results - Last 24 Hours (Table) 07/08/22 07/08/22 07/08/22 Range/Units 07:42 16:38 20:23 WBC (3.8-10.6) k/uL Neutrophils # (1.3-7.7) k/uL Lymphocytes # (1.0-4.8) k/uL Chloride (98-107) mmol/L BUN (9-20) mg/dL Glucose (74-99) mg/dL POC Glucose (mg/dL) 167 H 149 H (70-110) mg/dL Procalcitonin 0.55 H (0.02-0.09) ng/mL 07/09/22 07/09/22 07/09/22 Range/Units 05:38 05:38 07:01 WBC 12.4 H (3.8-10.6) k/uL Neutrophils # 11.4 H (1.3-7.7) k/uL Lymphocytes # 0.3 L (1.0-4.8) k/uL Chloride 109 H (98-107) mmol/L BUN 41 H (9-20) mg/dL Glucose 185 H (74-99) mg/dL POC Glucose (mg/dL) 198 H (70-110) mg/dL Procalcitonin (0.02-0.09) ng/mL 07/09/22 Range/Units 11:52 WBC (3.8-10.6) k/uL Neutrophils # (1.3-7.7) k/uL Lymphocytes # (1.0-4.8) k/uL Chloride (98-107) mmol/L BUN (9-20) mg/dL Glucose (74-99) mg/dL POC Glucose (mg/dL) 162 H (70-110) mg/dL Procalcitonin (0.02-0.09) ng/mL Microbiology - Last 24 Hours (Table) 07/06/22 16:57 Blood Culture - Preliminary Blood No Growth after 48 hours 07/06/22 16:48 Blood Culture - Preliminary Blood No Growth after 48 hours Assessment and Plan Time with Patient: Less than 30
[2022-07-09] MEDS: LACTULOSE 20 GM/30 ML CUP PO PRN (15:22)
[2022-07-09 17:38] LABS: Glucose,Whole Blood 165 mg/dL (70-110)
[2022-07-09] MEDS: ATORVASTATIN 10 MG TAB PO SCH (20:34)
[2022-07-09 20:54] LABS: Glucose,Whole Blood 173 mg/dL (70-110)
[2022-07-09] MEDS ORDERED: INSULIN DETEMIR (LEVEMIR) 100 UNIT/ML SYR SQ SCH (21:00)
--- NOTE | 2022-07-09 21:45 | PN ---
PROGRESS NOTE SUBJECTIVE: Mr. Leach is in sinus rhythm today. He is comfortable. His wheezing has somewhat improved. Hemodynamically stable. OBJECTIVE: HEART: S1 and S2 heard normally. Short systolic murmur at left sternal border. LUNGS: Reveal scattered rhonchi. ABDOMEN: Unchanged. LOWER EXTREMITIES: Unchanged. PLAN: To continue current medical regimen. No new intervention from a cardiac standpoint. MMODL / IJN: [id number] /
[2022-07-10] MEDS: VERAPAMIL 40 MG TAB PO SCH ×4 (00:37→21:20)
[2022-07-10] MEDS: QUEtiapine 50 MG TAB PO SCH ×4 (00:37→21:20)
[2022-07-10] MEDS: HEPARIN SODIUM,PORCINE/PF 5,000 UNIT/0.5 ML SYRINGE SQ SCH ×3 (00:38→14:46)
[2022-07-10] MEDS: methylPREDNISolone SOD SUCCI 125 MG/2 ML VIAL IV SCH ×4 (02:16→21:20)
[2022-07-10] MEDS: LORazepam 1 MG/0.5 ML VIAL IV PRN (05:11)
[2022-07-10] MEDS ORDERED: hydrALAZINE HCL 20 MG/ML 1 ML VIAL IVP STA (05:40)
[2022-07-10] MEDS: DILTIAZEM 125 MG in SODIUM CHLORIDE 0.9% 100 ML IV SCH ×2 (06:28→10:50)
[2022-07-10 07:00] LABS: Glucose,Whole Blood 152 mg/dL (70-110)
[2022-07-10 07:04] LABS: ABG Base Excess 5.8 mmol/L; ABG HCO3 31 mmol/L (21-25); ABG Oxygen Saturation 93.8 % (94-97); ABG PCO2 56 mmHg (35-45); ABG PH 7.36 (7.35-7.45); ABG PO2 69 mmHg (83-108); ABG TCO2 33 mmol/L (19-24)
--- NOTE | 2022-07-10 07:04 | XR ---
EXAMINATION TYPE: XR chest 1V portable DATE OF EXAM: 07/10/2022 5:28 AM COMPARISON: Chest radiograph from one day prior. TECHNIQUE: XR chest 1V portable Portable AP radiograph of the chest. CLINICAL INDICATION:Male, 66 years old with history of COPD exacerbation; FINDINGS: Lungs/Pleura: There is flattening of the diaphragm with increased lucency of the lungs. No evidence o f pneumothorax, pleural effusion or focal consolidation. Pulmonary vascularity: Unremarkable. Heart/mediastinum: Cardiomediastinal silhouette is unremarkable. Musculoskeletal: No acute osseous pathology. IMPRESSION: 1. No acute cardiopulmonary disease process. 2. COPD changes.
[2022-07-10 07:05] LABS: Allen Test Performed? Yes
[2022-07-10] MEDS: HALOPERIDOL LACTATE 5 MG/ML 1 ML VIAL IVP PRN ×3 (07:15→22:34)
[2022-07-10] MEDS: IPRATROPIUM-ALBUTEROL 3 ML NEB INHALATION SCH ×4 (07:32→19:13)
[2022-07-10] MEDS: BUDESONIDE 1 MG/2 ML NEBU INHALATION SCH ×2 (07:32→19:13)
[2022-07-10] MEDS: INSULIN ASPART (NovoLOG) 100 UNIT/ML VIAL SQ SCH ×4 (07:50→21:21)
[2022-07-10] MEDS: FORMOTEROL FUMARATE 20 MCG/2 ML NEBU INHALATION SCH ×2 (07:51→19:13)
[2022-07-10] MEDS: hydrALAZINE HCL 50 MG TAB PO SCH ×2 (08:08→21:20)
[2022-07-10] MEDS: PANTOPRAZOLE 40 MG TABLET PO SCH (08:08)
[2022-07-10 08:40] LABS: Basophils % (A) 0 %; Eosinophils % (A) 0 %; HCT 42.9 % (39.0-53.0); HGB 14.6 gm/dL (13.0-17.5); Lymphocytes # (A) 0.5 k/uL (1.0-4.8); Lymphocytes % (A) 4 %; MCH 31.3 pg (25.0-35.0); MCHC 33.9 g/dL (31.0-37.0); MCV 92.3 fL (80.0-100.0); Mean Platelet Volume 7.3; Monocytes # (A) 0.6 k/uL (0-1.0); Monocytes % (A) 5 %; Neutrophils # (A) 10.5 k/uL (1.3-7.7); Neutrophils % (A) 89 %; Platelet Count 242 k/uL (150-450); RBC 4.65 m/uL (4.30-5.90); WBC 11.7 k/uL (3.8-10.6)
[2022-07-10 09:00] LABS: Potassium 4.8 mmol/L (3.5-5.1)
[2022-07-10] MEDS ORDERED: NICOTINE 14MG/24HR PATCH TRANSDERM SCH (09:30)
[2022-07-10] MEDS: LACTULOSE 20 GM/30 ML CUP PO PRN (09:58)
[2022-07-10] MEDS: cloNIDine 0.2 MG/24HR PATCH TRANSDERM SCH (09:58)
[2022-07-10] MEDS: SODIUM CHLORIDE 0.9% 500 ML 500 ML IV SCH (10:04)
[2022-07-10] MEDS ORDERED: IOPAMIDOL CONTRAST (ORAL USE) VIAL PO PRN (11:13)
[2022-07-10 11:32] LABS: Glucose,Whole Blood 176 mg/dL (70-110)
--- NOTE | 2022-07-10 11:45 | P.PN ---
Subjective Progress Note Date: 07/10/22 Principal diagnosis: SVT, COPD exacerbation. This is a 66-year-old white male with history of moderate severe COPD, benign prostatic hypertrophy, history of laryngeal cancer diagnosed back in 2017, patient underwent radiation treatment with full recovery. Patient presented to the ER yesterday, complaining mostly of cough wheezing shortness of breath, and upon his initial evaluation in the ER, patient was noted to be tachycardic and noted to be in supraventricular tachycardia. His heart rate was 160. Patient was hypertensive. And he was noted to have increased work of breathing. Patient received a adenosine, patient was placed on Cardizem drip at 15 mg per hour. Patient was admitted, and this consult was initiated. His COPD status was quite severe apparently and the patient was getting updraft treatment almost every 2 hours. Patient was also placed on BiPAP because he was noted to be quite dyspneic and in respiratory distress on nasal cannula. ABG on BiPAP showed a pO2 of 107 pCO2 51 pH of 7.31, and I got him down from 35% to 50%. I also arranged for the patient to transfer to the ICU as he was noted to seen to be quite dyspneic and his dyspnea was a bit of this proportional to his physical examination. CT angiogram of the chest done on his admission showed no evidence of pulmonary embolism, there was evidence of emphysema and mild pulmonary fibro sis. Progress note dated 07/08/2022. This is a 66-year-old male who was admitted to the hospital, on July 06, for SVT, and COPD exacerbation. He is seen today to 58. Currently, he is on 4 L of oxygen. He's been on BiPAP, with settings of 12/6 and 35%. He remains on dexmedetomidine at 0.5 mcg/kg/h, and Cardizem drip at 5 mg an hour, as well as saline at 10 mL an hour. The patient appears to be doing a bit better, and the goal today is to get him off the dexmedetomidine. White count 6.1, hemoglobin 13.2, hematocrit 39.5, and platelet count 244,000. Sodium 144, potassium 4.6, chlorides 112, CO2 24, BUN 40, creatinine 0.99. Chest x-ray shows some cardiomegaly, and changes of COPD. There is residual but improving infiltrate at the right midlung. Progress note dated 07/09/2022. 66-year-old male, again seen in room 258. The patient's on BiPAP, with settings of 12/6 and 35%. The patient's getting saline at KVO, and dexmedetomidine at 0.4 mcg/kg/h. We will attempted DC the dexmedetomidine, but given the patient's Seroquel, 50 mg 3 times a day, as well as when necessary Haldol. In addition, I told the nurse that she could use a small amount of Ativan when necessary. Whi te count 12.4, implement 13.9, hematocrit 41.6, and platelet count is normal. Sodium 145, potassium 4.2, chlorides 109, CO2 27, with a BUN of 41 and a creatinine of 1.01. Chest x-ray shows chronic emphysematous changes. Progress note dated 07/10/2022. 66-year-old male, seen again in room 258. The patient remains on BiPAP, with settings of 16/6 and 40%. Blood gases done this morning show pO2 69, pCO2 56, and a pH of 7.36. I was called by the nurses morning because the patient was very agitated. The patient apparently got Ativan early this morning. The patient apparently did not get his Seroquel for his Haldol. Hence, I stopped the Ativan altogether because it may be causing delirium. In addition, we going to use the Haldol 4 - 8 mg, every 4 hours as needed, and Seroquel 50 mg 3 times a day. White count 11.7, hemoglobin 14.6, hematocrit 42.9, and platelet count 242,000. Sodium 149, potassium 4.8, chlorides 110, CO2 31, BUN 47, and creatinine 1.05. Because the patient may be exhibiting withdrawal, we will place a clonidine patch on him, TTS #2, and also apply a nicotine patch 21 mg a day. Objective - Vital Signs Vital signs: Vital Signs Temp 99 F 07/10/22 08:00 Pulse 128 H 07/10/22 11:24 Resp 25 H 07/10/22 10:00 BP 137/91 07/10/22 10:00 Pulse Ox 92 L 07/10/22 10:00 FiO2 40 07/10/22 11:15 Intake & Output 07/09/22 07/10/22 07/10/22 18:59 06:59 18:59 Intake Total 460.672 110 150.167 Output Total 700 785 275 Balance -239.328 -675 -124.833 Weight 81.2 kg 81.2 kg Intake: IV 140 110 40 0.9 KVO 140 110 40 Intake, IV Titration 20.672 110.167 Amount Dexmedetomidine/0.9% NaCl 20.672 (Pmx) 400 mcg In Empty Bag 1 bag @ 0.2 MCG/KG/HR 4.212 mls/hr IV .[id number] [facility] Rx#:[id number] Diltiazem 125 mg In 60.167 Sodium Chloride 0.9% 100 ml @ Per Protocol IV .Q0M [facility] Rx#:[id number] cefTRIAXone 2 gm In 50 Sodium Chloride 0.9% 50 ml @ 100 mls/hr IVPB Q24HR [facility] Rx#:[id number] Oral 300 Output: Urine 700 785 275 Other: Voiding Method Indwelling Catheter Indwelling Catheter Indwelling Catheter - Exam No acute distress, a bit agitated, currently on BiPAP. HEENT examination is grossly unremarkable. Neck supple. Full range of motion. No adenopathy thyromegaly or neck vein distention. Cardiovascular examination reveals regular rhythm rate. S1-S2 normal. No S3 or S4. No discernible murmur noted. Heart sounds are distant. Heart rate is 128 bpm. Lungs reveal bilateral coarse inspiratory expiratory rhonchi, and expiratory wheezes. No crackles. Saturations are in the mid 90s on BiPAP. Abdomen soft, without bowel sounds. No masses or tenderness. Extremities are intact. No cyanosis clubbing or edema. Skin is without rash or lesion. Neurologic examination is difficult to assess. - Labs CBC & Chem 7: 07/10/22 08:23 07/10/22 08:23 Labs: Abnormal Lab Results - Last 24 Hours (Table) 07/09/22 07/09/22 07/09/22 Range/Units 11:52 17:37 20:51 WBC (3.8-10.6) k/uL Neutrophils # (1.3-7.7) k/uL Lymphocytes # (1.0-4.8) k/uL ABG pCO2 (35-45) mmHg ABG pO2 (83-108) mmHg ABG HCO3 (21-25) mmol/L ABG Total CO2 (19-24) mmol/L ABG O2 Saturation (94-97) % Sodium (137-145) mmol/L Chloride (98-107) mmol/L Carbon Dioxide (22-30) mmol/L BUN (9-20) mg/dL Glucose (74-99) mg/dL POC Glucose (mg/dL) 162 H 165 H 173 H (70-110) mg/dL Calcium (8.4-10.2) mg/dL 07/10/22 07/10/22 07/10/22 Range/Units 06:58 07:02 08:23 WBC 11.7 H (3.8-10.6) k/uL Neutrophils # 10.5 H (1.3-7.7) k/uL Lymphocytes # 0.5 L (1.0-4.8) k/uL ABG pCO2 56 H (35-45) mmHg ABG pO2 69 L (83-108) mmHg ABG HCO3 31 H (21-25) mmol/L ABG Total CO2 33 H (19-24) mmol/L ABG O2 Saturation 93.8 L (94-97) % Sodium (137-145) mmol/L Chloride (98-107) mmol/L Carbon Dioxide (22-30) mmol/L BUN (9-20) mg/dL Glucose (74-99) mg/dL POC Glucose (mg/dL) 152 H (70-110) mg/dL Calcium (8.4-10.2) mg/dL 07/10/22 07/10/22 Range/Units 08:23 11:30 WBC (3.8-10.6) k/uL Neutrophils # (1.3-7.7) k/uL Lymphocytes # (1.0-4.8) k/uL ABG pCO2 (35-45) mmHg ABG pO2 (83-108) mmHg ABG HCO3 (21-25) mmol/L ABG Total CO2 (19-24) mmol/L ABG O2 Saturation (94-97) % Sodium 149 H (137-145) mmol/L Chloride 110 H (98-107) mmol/L Carbon Dioxide 31 H (22-30) mmol/L BUN 47 H (9-20) mg/dL Glucose 199 H (74-99) mg/dL POC Glucose (mg/dL) 176 H (70-110) mg/dL Calcium 8.0 L (8.4-10.2) mg/dL Microbiology - Last 24 Hours (Table) 07/06/22 16:48 Blood Culture - Preliminary Blood No Growth after 72 hours 07/06/22 16:57 Blood Culture - Preliminary Blood No Growth after 72 hours Assessment and Plan Assessment: Acute hypoxemic respiratory failure secondary to COPD exacerbation. Possible acute withdrawal, from either tobacco and/or alcohol. Acute tracheobronchitis. Supraventricular tachycardia. History of laryngeal carcinoma, in remission, status post radiation treatment, diagnosed in 2017. Acute hypercapnic respiratory failure secondary to severe COPD. Plan: Plan dated 07/08/2022. The patient remains on dexmedetomidine. We will attempt to get her off of that drug. There are other medications that we can use, to substitute for that medication. In addition, the patient remains on appropriate medications for his COPD exacerbation including Solu-Medrol. Labs, x-rays, and medications are reviewed. The patient remains on Rocephin empirically. He also remains on Pulmicort 1 mg mixed with formoterol 20 g, twice a day. We will continue to follow make recommendations along the way. Prognosis is guarded. Plan dated 07/09/2022. Labs, x-rays, and medications are reviewed. The patient remains on dex medetomidine. I've given the nurses some orders for Seroquel, and Haldol, to get the patient off of dexmedetomidine. The patient's getting saline at KVO. The patient's currently on BiPAP, 12/6, and 35%. We will continue to follow make recommendations along the way. The patient remains on Rocephin empirically. Culture data is negative. Chest x-ray is evaluated. Prognosis is certainly guarded. Plan dated 07/10/2022. We will add a clonidine patch, TTS #2, along with a nicotine patch, 21 mg a day. I will DC the Ativan. May be causing delirium. In addition, I will implore the nurse to use the Haldol, and Seroquel as prescribed. Labs, x-rays, and medications are reviewed. Overall prognosis remains guarded. We will talk to the family about CODE STATUS. The patient appears quite agitated, and may be going through withdrawal. We will see if we can gain some additional history ab out the patient's habits, from the family. Time with Patient: Greater than 30
--- NOTE | 2022-07-10 12:27 | P.PN ---
Subjective Progress Note Date: 07/10/22 CHIEF COMPLAINT: Ileus in HISTORY OF PRESENT ILLNESS: Patient admitted to the hospital with shortness of breath evidence of COPD exacerbation, bronchitis and SVT. Patient remains on BiPAP. He continued to have abdominal distention. No nausea or vomiting or bowel activity reported. NG tube placed this morning with very minimal tanoutput. Patient has been agitated currently on Seroquel has bedside sitter also has received Haldol. Afebrile. Tachycardic heart rate in the 130s. Had been restarted on Cardizem drip. WBC 11.7 hemoglobin 14.6 platelets 242 Na 149 potassium is 4.8 creatinine 1.05 patient did not receive the lactulose yesterday due to poor swallow. Critical care service. Concern for patient going through withdrawal from either alcohol or nicotine. PHYSICAL EXAM: VITAL SIGNS: Reviewed. GENERAL: Well-developed in no acute distress. HEENT: No sclera icterus. Extraocular movements grossly intact. Moist buccal mucosa. Head is atraumatic, normocephalic. ABDOMEN: Soft. Distended. Diffuse tenderness. NEUROLOGIC: Lethargic. ASSESSMENT: 1. Ileus 2. Acute COPD exacerbation with acute hypoxic respiratory failure 3. 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 Signing provider agrees with the documented findings, assessment, and plan of care. Objective - Vital Signs Vital signs: Vital Signs Temp 99 F 07/10/22 08:00 Pulse 128 H 07/10/22 11:24 Resp 25 H 07/10/22 10:00 BP 137/91 07/10/22 10:00 Pulse Ox 92 L 07/10/22 10:00 FiO2 40 07/10/22 11:15 Intake & Output 07/09/22 07/10/22 07/10/22 18:59 06:59 18:59 Intake Total 460.672 110 150.167 Output Total 700 785 275 Balance -239.328 -675 -124.833 Weight 81.2 kg 81.2 kg Intake: IV 140 110 40 0.9 KVO 140 110 40 Intake, IV Titration 20.672 110.167 Amount Dexmedetomidine/0.9% NaCl 20.672 (Pmx) 400 mcg In Empty Bag 1 bag @ 0.2 MCG/KG/HR 4.212 mls/hr IV .[id number] [facility] Rx#:[id number] Diltiazem 125 mg In 60.167 Sodium Chloride 0.9% 100 ml @ Per Protocol IV .Q0M [facility] Rx#:[id number] cefTRIAXone 2 gm In 50 Sodium Chloride 0.9% 50 ml @ 100 mls/hr IVPB Q24HR [facility] Rx#:[id number] Oral 300 Output: Urine 700 785 275 Other: Voiding Method Indwelling Catheter Indwelling Catheter Indwelling Catheter - Labs CBC & Chem 7: 07/10/22 08:23 07/10/22 08:23 Labs: Abnormal Lab Results - Last 24 Hours (Table) 07/09/22 07/09/22 07/09/22 Range/Units 11:52 17:37 20:51 WBC (3.8-10.6) k/uL Neutrophils # (1.3-7.7) k/uL Lymphocytes # (1.0-4.8) k/uL ABG pCO2 (35-45) mmHg ABG pO2 (83-108) mmHg ABG HCO3 (21-25) mmol/L ABG Total CO2 (19-24) mmol/L ABG O2 Saturation (94-97) % Sodium (137-145) mmol/L Chloride (98-107) mmol/L Carbon Dioxide (22-30) mmol/L BUN (9-20) mg/dL Glucose (74-99) mg/dL POC Glucose (mg/dL) 162 H 165 H 173 H (70-110) mg/dL Calcium (8.4-10.2) mg/dL 07/10/22 07/10/22 07/10/22 Range/Units 06:58 07:02 08:23 WBC 11.7 H (3.8-10.6) k/uL Neutrophils # 10.5 H (1.3-7.7) k/uL Lymphocytes # 0.5 L (1.0-4.8) k/uL ABG pCO2 56 H (35-45) mmHg ABG pO2 69 L (83-108) mmHg ABG HCO3 31 H (21-25) mmol/L ABG Total CO2 33 H (19-24) mmol/L ABG O2 Saturation 93.8 L (94-97) % Sodium (137-145) mmol/L Chloride (98-107) mmol/L Carbon Dioxide (22-30) mmol/L BUN (9-20) mg/dL Glucose (74-99) mg/dL POC Glucose (mg/dL) 152 H (70-110) mg/dL Calcium (8.4-10.2) mg/dL 07/10/22 07/10/22 Range/Units 08:23 11:30 WBC (3.8-10.6) k/uL Neutrophils # (1.3-7.7) k/uL Lymphocytes # (1.0-4.8) k/uL ABG pCO2 (35-45) mmHg ABG pO2 (83-108) mmHg ABG HCO3 (21-25) mmol/L ABG Total CO2 (19-24) mmol/L ABG O2 Saturation (94-97) % Sodium 149 H (137-145) mmol/L Chloride 110 H (98-107) mmol/L Carbon Dioxide 31 H (22-30) mmol/L BUN 47 H (9-20) mg/dL Glucose 199 H (74-99) mg/dL POC Glucose (mg/dL) 176 H (70-110) mg/dL Calcium 8.0 L (8.4-10.2) mg/dL Microbiology - Last 24 Hours (Table) 07/06/22 16:48 Blood Culture - Preliminary Blood No Growth after 72 hours 07/06/22 16:57 Blood Culture - Preliminary Blood No Growth after 72 hours
[2022-07-10] MEDS ORDERED: DEXTROSE 5% IN WATER 100 ML with AMIODARONE 150 MG IV ONE (13:20)
[2022-07-10] MEDS ORDERED: AMIODARONE 360 MG in DEXTROSE 5% IN WATER 200 ML IV ONE ×2 (13:30)
--- NOTE | 2022-07-10 13:38 | CT ---
EXAMINATION TYPE: CT abdomen pelvis wo con DATE OF EXAM: 07/10/2022 HISTORY: SBO rule out. Abdominal distention and pain. CT DLP: 829.4 mGycm. Automated Exposure Control for Dose Reduction was Utilized. TECHNIQUE: CT scan of the abdomen and pelvis is performed with oral but without IV contrast. COMPARISON: Abdominal x-ray 2 days earlier. FINDINGS: Within the limitations of a non-contrast study, the following observations are made. LUNG BASES: Mild to moderate linear scarring and/or atelectasis greatest posteriorly is seen. LIVER/GB: Hyperdense gallbladder likely from vicarious excretion from recent CTA chest study. PANCREAS: No significant abnormality is seen. SPLEEN: No significant abnormality is seen. ADRENALS: No significant abnormality is seen. KIDNEYS: No renal stones or hydronephrosis seen bilaterally. Rjoas catheter decompresses bladder. BOWEL: Oral contrast reaches the level of the mid to distal transverse colon. Contrast filled stomach and duodenal sweep is not suspiciously distended or dilated. Contrast seen in nondistended small bow el loops throughout the abdomen and pelvis. There is slight gaseous prominence of the cecum and trans verse colon. There is transition without obvious mass into nondistended left and sigmoid colon. A few sigmoid colonic diverticula are present. Mild wall thickening in distal colon presumed product of no ndistention. GENITAL ORGANS: Prostate gland upper limits of normal in size. LYMPH NODES: No greater than 1cm abdominal or pelvic lymph nodes are appreciated. OSSEOUS STRUCTURES: Facet arthropathy lower lumbar levels. OTHER: Mild calcified plaque of the aorta extends into branch vessels.. IMPRESSION: No CT evidence for small bowel obstruction. No intra-abdominal ascites noted.
[2022-07-10] MEDS: SODIUM CHLORIDE 0.45% 1,000 ML IV SCH (13:39)
--- NOTE | 2022-07-10 14:36 | PN ---
PROGRESS NOTE SUBJECTIVE: Mr. Leach is on a BiPAP. His breathing is quite difficult. He is also in atrial fibrillation with rapid ventricular rate, and blood pressure is good. I am recommending IV Cardizem bolus and drip to rate control. Prognosis remains poor. He has multiple comorbid conditions. OBJECTIVE: VITAL SIGNS: Blood pressure is 150/60. Pulse rate is about 120, irregular. NECK: JVD 1 cm. No carotid bruit. HEART: S1 and S2 with tachycardia. Short systolic murmur. LUNGS: Reveal diminished air entry with increased respiratory rate. ABDOMEN: Unchanged. LOWER EXTREMITIES: Unchanged. PROGNOSIS: Remains poor. PLAN: We will give Cardizem bolus and drip for rate control and await further input from Dr. Christensen. The patient is on a BiPAP, but he seems to be tiring out. MMODL / IJN: [id number] /
[2022-07-10] MEDS ORDERED: HEPARIN SODIUM 1,000 UN/ML (10ML VL) IV ONE (15:21)
[2022-07-10] MEDS ORDERED: HEPARIN SODIUM 1,000 UN/ML (10ML VL) IV PRN (15:21)
[2022-07-10] MEDS ORDERED: HEPARIN SOD,PORK IN 0.45% NACL 25,000 UNIT in 0.45% NACL 1 250ML.BAG IV SCH (15:30)
[2022-07-10 16:32] LABS: Glucose,Whole Blood 168 mg/dL (70-110)
--- NOTE | 2022-07-10 16:33 | P.PN ---
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 Patient tried breathing treatments at home without much relief. Patient was tachycardic on admission with heart rate in 160s and was found to be SVT patient was given Ellenson in the ER. Otherwise denied any complaints of chest pain. No nausea vomiting or abdominal pain. Denied any increased leg swelling. No fever no chills. No prior history of SVT. Chest x-ray showed COPD. No active cardiopulmonary disease. Mild pulmonary fibrotic changes. No significant change. CTA chest showed no evidence of PE. Emphysema and mild pulmonary fibrosis. No suspicious pulmonary mass. Laboratory data showed WBC 16.0 hemoglobin 16.0 and platelets 269 Sodium 139 potassium four-point 102 bicarb is 20 BUN 16 and creatinine 0.87 and lactic acid 2.7 Troponin x1 negative and proBNP is 378 TSH 0.49 6 Coronavirus and influenza AMB not detected. Urinalysis is negative for infection. 07/08/2022 Patient continues to be monitored in intensive care unit mostly on BiPAP support but able to be weaned to 3 to 4 L of oxygen via nasal cannula. He is unsure when he has had bowel movement and has limited to no bowel sounds for this reason abdominal xray has been performed showing mildly distended small bowel loops and some segments of colon as well. Consider generalized ileus and difficult to exclude the possibility of a distal colonic obstruction. White blood cell count today 6.1, sodium 144, potassium 4.6, BUN 40, creatinine 0.99, blood glucose 150, magnesium 2.4. Procalcitonin 0.55. Vitals today, patient is afebrile, heart rate 71, blood pressure 121/64, 95% oxygen saturation. Patient has been m aintained on dexmedetomidine for acute anxiety which is currently paused. Continues on IV Solu-Medrol, and bronchodilators. Patient is currently on IV cardizem gtt for tachycardia and will be transitioned to oral verapamil today, cardiology is following. 07/09/2022 Patient continues to be monitored in intensive care unit. White count elevated up to 12.4 today he has expiratory wheezing on exam changed from yesterday. Patient requiring bipap at 35% FiO2 currently. He did have low grade fever this morning 99 and is receiving acetaminophen as needed. chest xray today showing chronic emphysema and pulmonary fibrotic change. Procalcitonin level elevated at 0.55. IV ceftriaxone increased to 2 gram every 24 hours. Patient is continued on bronchodilators. Continues on IV solumedrol 60 mg q6h. Dexmedetomidine possibly being weaned off today, seroquel and haldol ordered with ativan as needed. P atient continues with significant abdominal distention and absent bowel sounds left lower quadrant. Did not receive lactulose yesterday. General surgery was consulted for further evaluation, currently placed NPO for possible ileus /bowel obstruction. He is hypertensive today with systolic in the 180s has been started on verapamil TID and also hydralazine 50 BID. Cardiology following. 07/10/2022 Patient evaluated today on BiPAP, fio2 has been increased to 40%, he is using accessory muscles to breath and appears quite aggitated. He is on combination of haldol, seroquel for this. Additionally, he was started on nicotine patch and clonidine patch. NG tube has been placed, patient has not had a BM. Abdominal Pelvis CT completed showing no CT evidence for small bowel obstruction. Patient also had follow up chest xray today showing COPD changes and no acute disease. Never the less he appears to have some respiratory distress requiring BiPAP. white count 11.7 today, sodium 149, BUN 47, creatinine 1.05, blood glucose 170s. Patient has been placed on amiodarone infusion and also heparin gtt as patient is unable to take oral medications currently. He continues on antibiotics. Continues on IV solumedrol. Unable to complete review of systems today, patient is sedated on bipap. PHYSICAL EXAMINATION: Patient is lying in the bed comfortably, no acute distress, sedated On BiPAP. HEENT: Normocephalic. Neck is supple. Pupils reactive. Nostrils clear. Oral cavity is moist. Neck reveals no JVD, carotid bruits, or thyromegaly. CHEST EXAMINATION: Trachea is central. Symmetrical expansion. Bilateral diminished sounds and diffuse wheezing. Scattered rhonchi.. CARDIAC: Normal S1, S2 with no gallops. No murmurs regular rhythm, rapid rate ABDOMEN: Soft. Bowel sounds present. Nontender. No organomegaly. No abdominal bruits. Extremities: reveal no edema. No clubbing or cyanosis Neurologically sedated unable to complete full exam Skin: No rash or skin lesions. Musculoskeletal: No joint swelling or deformity. Normal range of motion. Assessment and Plan Assessment Acute hypoxic respiratory failure requiring BiPAP Worsening shortness of breath secondary to acute COPD exacerbation and tracheobronchitis Supraventricular tachycardia on admission. Sinus tachycardia Hypertension Hypernatremia Rule out ileus and bowel obstruction NG Tube in place BPH Prior history of smoking History of throat cancer and vocal cord status post radiation 2016 DVT prophylaxis GI prophyalxis Full Code Plan: Patient will be continued telemetry monitoring. Cardiology adjusting medications Patient will be continued Solu-Medrol, duo nebs and Symbicort. Currently on antibiotics in the form of ceftriaxone. Cardiology and pulmonary following Surgical consultation in place, patient is currently NPO. NG tube in place. The impression and plan of care has been dictated by Maria De Jesus Mccoy Nurse Practitioner as directed. Dr. Alison MD I have performed a history and physical examination and medical decision making of this patient, discussed the same with the dictator, and agree with the dictators assessment and plan as written, documented as a scribe. Based on total visit time, I have performed more than 50% of this visit. Objective - Vital Signs Vital signs: Vital Signs Temp 98.5 F 07/10/22 12:00 Pulse 111 H 07/10/22 15:46 Resp 29 H 07/10/22 12:00 BP 143/95 07/10/22 12:00 Pulse Ox 89 L 07/10/22 12:00 FiO2 40 07/10/22 15:39 Intake & Output 07/09/22 07/10/22 07/10/22 18:59 06:59 18:59 Intake Total 460.672 110 321.167 Output Total 700 785 465 Balance -239.328 -675 -143.833 Weight 81.2 kg 81.2 kg Intake: IV 140 110 170 0.9 KVO 140 110 170 Intake, IV Titration 20.672 151.167 Amount Dexmedetomidine/0.9% NaCl 20.672 (Pmx) 400 mcg In Empty Bag 1 bag @ 0.2 MCG/KG/HR 4.212 mls/hr IV .[id number] [facility] Rx#:[id number] Diltiazem 125 mg In 101.167 Sodium Chloride 0.9% 100 ml @ Per Protocol IV .Q0M [facility] Rx#:[id number] cefTRIAXone 2 gm In 50 Sodium Chloride 0.9% 50 ml @ 100 mls/hr IVPB Q24HR [facility] Rx#:[id number] Oral 300 Output: Urine 700 785 465 Other: Voiding Method Indwelling Catheter Indwelling Catheter Indwelling Catheter - Labs CBC & Chem 7: 07/10/22 08:23 07/10/22 08:23 Labs: Abnormal Lab Results - Last 24 Hours (Table) 07/09/22 07/09/22 07/10/22 Range/Units 17:37 20:51 06:58 WBC (3.8-10.6) k/uL Neutrophils # (1.3-7.7) k/uL Lymphocytes # (1.0-4.8) k/uL ABG pCO2 (35-45) mmHg ABG pO2 (83-108) mmHg ABG HCO3 (21-25) mmol/L ABG Total CO2 (19-24) mmol/L ABG O2 Saturation (94-97) % Sodium (137-145) mmol/L Chloride (98-107) mmol/L Carbon Dioxide (22-30) mmol/L BUN (9-20) mg/dL Glucose (74-99) mg/dL POC Glucose (mg/dL) 165 H 173 H 152 H (70-110) mg/dL Calcium (8.4-10.2) mg/dL 07/10/22 07/10/22 07/10/22 Range/Units 07:02 08:23 08:23 WBC 11.7 H (3.8-10.6) k/uL Neutrophils # 10.5 H (1.3-7.7) k/uL Lymphocytes # 0.5 L (1.0-4.8) k/uL ABG pCO2 56 H (35-45) mmHg ABG pO2 69 L (83-108) mmHg ABG HCO3 31 H (21-25) mmol/L ABG Total CO2 33 H (19-24) mmol/L ABG O2 Saturation 93.8 L (94-97) % Sodium 149 H (137-145) mmol/L Chloride 110 H (98-107) mmol/L Carbon Dioxide 31 H (22-30) mmol/L BUN 47 H (9-20) mg/dL Glucose 199 H (74-99) mg/dL POC Glucose (mg/dL) (70-110) mg/dL Calcium 8.0 L (8.4-10.2) mg/dL 07/10/22 Range/Units 11:30 WBC (3.8-10.6) k/uL Neutrophils # (1.3-7.7) k/uL Lymphocytes # (1.0-4.8) k/uL ABG pCO2 (35-45) mmHg ABG pO2 (83-108) mmHg ABG HCO3 (21-25) mmol/L ABG Total CO2 (19-24) mmol/L ABG O2 Saturation (94-97) % Sodium (137-145) mmol/L Chloride (98-107) mmol/L Carbon Dioxide (22-30) mmol/L BUN (9-20) mg/dL Glucose (74-99) mg/dL POC Glucose (mg/dL) 176 H (70-110) mg/dL Calcium (8.4-10.2) mg/dL Microbiology - Last 24 Hours (Table) 07/06/22 16:48 Blood Culture - Preliminary Blood No Growth after 72 hours 07/06/22 16:57 Blood Culture - Preliminary Blood No Growth after 72 hours Assessment and Plan Time with Patient: Less than 30
[2022-07-10] MEDS: AMIODARONE 450 MG in DEXTROSE 5% IN WATER 250 ML IV SCH ×2 (20:51)
[2022-07-10] MEDS ORDERED: INSULIN DETEMIR (LEVEMIR) 100 UNIT/ML SYR SQ SCH (21:00)
[2022-07-10 21:01] LABS: Glucose,Whole Blood 169 mg/dL (70-110)
[2022-07-10] MEDS: FAMOTIDINE 20 MG/2 ML VIAL IV SCH (21:20)
[2022-07-10] MEDS: ATORVASTATIN 10 MG TAB PO SCH (21:20)
[2022-07-10] MEDS ORDERED: DILTIAZEM 125 MG in SODIUM CHLORIDE 0.9% 100 ML IV SCH ×2 (22:00→23:13)
[2022-07-10] MEDS: IPRATROPIUM-ALBUTEROL 3 ML NEB INHALATION PRN (23:23)
[2022-07-11] MEDS: HALOPERIDOL LACTATE 5 MG/ML 1 ML VIAL IVP PRN ×3 (01:42→16:59)
[2022-07-11] MEDS: methylPREDNISolone SOD SUCCI 125 MG/2 ML VIAL IV SCH ×4 (02:32→20:57)
[2022-07-11] MEDS: IPRATROPIUM-ALBUTEROL 3 ML NEB INHALATION PRN ×2 (03:25→23:10)
[2022-07-11 05:23] LABS: Albumin 3.2 g/dL (3.5-5.0); Potassium 4.1 mmol/L (3.5-5.1); Total Bilirubin 0.7 mg/dL (0.2-1.3); Total Protein 5.6 g/dL (6.3-8.2)
[2022-07-11 07:01] LABS: Glucose,Whole Blood 223 mg/dL (70-110)
[2022-07-11] MEDS: INSULIN ASPART (NovoLOG) 100 UNIT/ML VIAL SQ SCH ×5 (07:13→19:03)
[2022-07-11] MEDS: FORMOTEROL FUMARATE 20 MCG/2 ML NEBU INHALATION SCH ×2 (07:59→19:21)
[2022-07-11] MEDS: BUDESONIDE 1 MG/2 ML NEBU INHALATION SCH ×2 (07:59→19:21)
[2022-07-11] MEDS: IPRATROPIUM-ALBUTEROL 3 ML NEB INHALATION SCH ×4 (07:59→19:21)
[2022-07-11] MEDS: SODIUM CHLORIDE 0.45% 1,000 ML IV SCH ×2 (08:22→10:51)
[2022-07-11] MEDS: hydrALAZINE HCL 50 MG TAB PO SCH ×2 (08:23→20:56)
[2022-07-11] MEDS: VERAPAMIL 80 MG TAB PO SCH ×2 (08:24→16:41)
[2022-07-11] MEDS: APIXABAN 5 MG TAB PO SCH ×2 (08:27→20:57)
[2022-07-11] MEDS: FAMOTIDINE 20 MG/2 ML VIAL IV SCH ×2 (08:34→20:57)
[2022-07-11] MEDS: QUEtiapine 50 MG TAB PO SCH ×3 (08:47→21:01)
[2022-07-11] MEDS ORDERED: NA PHOS,M-B/NA PHOS,DI-BA 133 ML ENEMA RECTAL ONE (10:49)
[2022-07-11] MEDS: INSULIN DETEMIR (LEVEMIR) 100 UNIT/ML SYR SQ SCH ×2 (10:50→20:58)
--- NOTE | 2022-07-11 10:50 | PN ---
PROGRESS NOTE SUBJECTIVE: Mr. Leach is in sinus rhythm with frequent PACs. He was on BiPAP. He looks clinically better than yesterday. Plan is to increase verapamil to 80 mg t.i.d. and discontinue the Cardizem drip. I will also place him on Eliquis 5 mg b.i.d. and stop the heparin drip. Overall, he seems a little better compared to yesterday, but still not out of the [place]. He has history of laryngeal cancer and again COPD exacerbation, multiple comorbid conditions. However, he is hemodynamically stable and is in sinus rhythm with frequent PACs. OBJECTIVE: VITAL SIGNS: Stable. NECK: JVD 1 cm. No carotid bruit. HEART: S1, S2 heard normally. Irregular rhythm noted. Short systolic murmur noted. LUNGS: Reveal scattered rhonchi. ABDOMEN: Unchanged. LOWER EXTREMITIES: Unchanged. Prognosis remains guarded. MMODL / IJN: [id number] /
--- NOTE | 2022-07-11 10:53 | P.PN ---
Subjective Progress Note Date: 07/11/22 Principal diagnosis: SVT, COPD exacerbation. This is a 66-year-old white male with history of moderate severe COPD, benign prostatic hypertrophy, history of laryngeal cancer diagnosed back in 2017, patient underwent radiation treatment with full recovery. Patient presented to the ER yesterday, complaining mostly of cough wheezing shortness of breath, and upon his initial evaluation in the ER, patient was noted to be tachycardic and noted to be in supraventricular tachycardia. His heart rate was 160. Patient was hypertensive. And he was noted to have increased work of breathing. Patient received a adenosine, patient was placed on Cardizem drip at 15 mg per hour. Patient was admitted, and this consult was initiated. His COPD status was quite severe apparently and the patient was getting updraft treatment almost every 2 hours. Patient was also placed on BiPAP because he was noted to be quite dyspneic and in respiratory distress on nasal cannula. ABG on BiPAP showed a pO2 of 107 pCO2 51 pH of 7.31, and I got him down from 35% to 50%. I also arranged for the patient to transfer to the ICU as he was noted to seen to be quite dyspneic and his dyspnea was a bit of this proportional to his physical examination. CT angiogram of the chest done on his admission showed no evidence of pulmonary embolism, there was evidence of emphysema and mild pulmonary fibro sis. Progress note dated 07/08/2022. This is a 66-year-old male who was admitted to the hospital, on July 06, for SVT, and COPD exacerbation. He is seen today to 58. Currently, he is on 4 L of oxygen. He's been on BiPAP, with settings of 12/6 and 35%. He remains on dexmedetomidine at 0.5 mcg/kg/h, and Cardizem drip at 5 mg an hour, as well as saline at 10 mL an hour. The patient appears to be doing a bit better, and the goal today is to get him off the dexmedetomidine. White count 6.1, hemoglobin 13.2, hematocrit 39.5, and platelet count 244,000. Sodium 144, potassium 4.6, chlorides 112, CO2 24, BUN 40, creatinine 0.99. Chest x-ray shows some cardiomegaly, and changes of COPD. There is residual but improving infiltrate at the right midlung. Progress note dated 07/09/2022. 66-year-old male, again seen in room 258. The patient's on BiPAP, with settings of 12/6 and 35%. The patient's getting saline at KVO, and dexmedetomidine at 0.4 mcg/kg/h. We will attempted DC the dexmedetomidine, but given the patient's Seroquel, 50 mg 3 times a day, as well as when necessary Haldol. In addition, I told the nurse that she could use a small amount of Ativan when necessary. Whi te count 12.4, implement 13.9, hematocrit 41.6, and platelet count is normal. Sodium 145, potassium 4.2, chlorides 109, CO2 27, with a BUN of 41 and a creatinine of 1.01. Chest x-ray shows chronic emphysematous changes. Progress note dated 07/10/2022. 66-year-old male, seen again in room 258. The patient remains on BiPAP, with settings of 16/6 and 40%. Blood gases done this morning show pO2 69, pCO2 56, and a pH of 7.36. I was called by the nurses morning because the patient was very agitated. The patient apparently got Ativan early this morning. The patient apparently did not get his Seroquel for his Haldol. Hence, I stopped the Ativan altogether because it may be causing delirium. In addition, we going to use the Haldol 4 - 8 mg, every 4 hours as needed, and Seroquel 50 mg 3 times a day. White count 11.7, hemoglobin 14.6, hematocrit 42.9, and platelet count 242,000. Sodium 149, potassium 4.8, chlorides 110, CO2 31, BUN 47, and creatinine 1.05. Because the patient may be exhibiting withdrawal, we will place a clonidine patch on him, TTS #2, and also apply a nicotine patch 21 mg a day. Progress note dated 07/11/2022. 66-year-old male seen in room 258. This morning, the patient was converted from BiPAP, 2:15 liters high flow O2. He may need AIRVO. The patient still has an NG tube in place. He is getting saline at 20 mL an hour. At nighttime, he was on BiPAP, with settings of 16/6 and 40%. The patient's heparin and Cardizem will be discontinued. He remains on amiodarone at 0.5 mg/m. Sodium 148, potassium 4.1, chlorides 110, CO2 32, BUN 51, creatinine 1.08. Albumin is 3.2. PTT is 56.5. No chest x-ray today. Blood cultures have been negative. Objective - Vital Signs Vital signs: Vital Signs Temp 98.3 F 07/11/22 08:00 Pulse 113 H 07/11/22 09:00 Resp 30 H 07/11/22 09:00 BP 151/98 07/11/22 09:00 Pulse Ox 94 L 07/11/22 09:00 FiO2 60 07/11/22 10:44 Intake & Output 07/10/22 07/11/22 07/11/22 18:59 06:59 18:59 Intake Total 721.167 640.083 140 Output Total 645 760 175 Balance 76.167 -119.917 -35 Weight 81.2 kg 81.4 kg Intake: IV 570 640 80 0.9 KVO 570 640 80 Intake, IV Titration 151.167 0.083 Amount Diltiazem 125 mg In 0.083 Sodium Chloride 0.9% 100 ml @ 5 MG/HR 5 mls/hr IV .Q24H [facility] Rx#:[id number] Diltiazem 125 mg In 101.167 Sodium Chloride 0.9% 100 ml @ Per Protocol IV .Q0M [facility] Rx#:[id number] cefTRIAXone 2 gm In 50 Sodium Chloride 0.9% 50 ml @ 100 mls/hr IVPB Q24HR [facility] Rx#:[id number] Tube Feeding 60 Output: Urine 645 760 175 Other: Voiding Method Indwelling Catheter Indwelling Catheter - Exam No acute distress, a bit agitated, currently on high flow nasal O2. HEENT examination is grossly unremarkable. Neck supple. Full range of motion. No adenopathy thyromegaly or neck vein distention. Cardiovascular examination reveals regular rhythm rate. S1-S2 normal. No S3 or S4. No discernible murmur noted. Heart sounds are distant. Heart rate is 113 bpm. Lungs reveal bilateral coarse inspiratory expiratory rhonchi, and expiratory wheezes. No crackles. Saturations are in the mid 90s on high flow nasal O2. Abdomen soft, without bowel sounds. No masses or tenderness. Extremities are intact. No cyanosis clubbing or edema. Skin is without rash or lesion. Neurologic examination is difficult to assess. - Labs CBC & Chem 7: 07/10/22 08:23 07/11/22 04:13 Labs: Abnormal Lab Results - Last 24 Hours (Table) 07/10/22 07/10/22 07/10/22 Range/Units 11:30 16:28 21:00 APTT (22.0-30.0) sec Sodium (137-145) mmol/L Chloride (98-107) mmol/L Carbon Dioxide (22-30) mmol/L BUN (9-20) mg/dL Glucose (74-99) mg/dL POC Glucose (mg/dL) 176 H 168 H 169 H (70-110) mg/dL Calcium (8.4-10.2) mg/dL Total Protein (6.3-8.2) g/dL Albumin (3.5-5.0) g/dL 07/10/22 07/11/22 07/11/22 Range/Units 23:08 04:13 04:13 APTT 56.8 H 56.5 H (22.0-30.0) sec Sodium 148 H (137-145) mmol/L Chloride 110 H (98-107) mmol/L Carbon Dioxide 32 H (22-30) mmol/L BUN 51 H (9-20) mg/dL Glucose 217 H (74-99) mg/dL POC Glucose (mg/dL) (70-110) mg/dL Calcium 8.0 L (8.4-10.2) mg/dL Total Protein 5.6 L (6.3-8.2) g/dL Albumin 3.2 L (3.5-5.0) g/dL 07/11/22 Range/Units 07:00 APTT (22.0-30.0) sec Sodium (137-145) mmol/L Chloride (98-107) mmol/L Carbon Dioxide (22-30) mmol/L BUN (9-20) mg/dL Glucose (74-99) mg/dL POC Glucose (mg/dL) 223 H (70-110) mg/dL Calcium (8.4-10.2) mg/dL Total Protein (6.3-8.2) g/dL Albumin (3.5-5.0) g/dL Microbiology - Last 24 Hours (Table) 07/06/22 16:57 Blood Culture - Preliminary Blood No Growth after 96 hours 07/06/22 16:48 Blood Culture - Preliminary Blood No Growth after 96 hours Assessment and Plan Assessment: Acute hypoxemic respiratory failure secondary to COPD exacerbation. Possible acute withdrawal, from either tobacco and/or alcohol. Acute tracheobronchitis. Supraventricular tachycardia/atrial fibrillation with RVR. History of laryngeal carcinoma, in remission, status post radiation treatment, diagnosed in 2017. Acute hypercapnic respiratory failure secondary to severe COPD. Plan: Plan dated 07/08/2022. The patient remains on dexmedetomidine. We will attempt to get her off of that drug. There are other medications that we can use, to substitute for that medication. In addition, the patient remains on appropriate medications for his COPD exacerbation including Solu-Medrol. Labs, x-rays, and medications are reviewed. The patient remains on Rocephin empirically. He also remains on Pulmicort 1 mg mixed with formoterol 20 g, twice a day. We will continue to follow make recommendations along the way. Prognosis is guarded. Plan dated 07/09/2022. Labs, x-rays, and medications are reviewed. The patient remains on dexmedetomidine. I've given the nurses some orders for Seroquel, and Haldol, to get the patient off of dexmedetomidine. The patient's getting saline at KVO. The patient's currently on BiPAP, 12/6, and 35%. We will continue to follow make recommendations along the way. The patient remains on Rocephin empirically. Culture data is negative. Chest x-ray is evaluated. Prognosis is certainly guarded. Plan dated 07/10/2022. We will add a clonidine patch, TTS #2, along with a nicotine patch, 21 mg a day. I will DC the Ativan. May be causing delirium. In addition, I will implore the nurse to use the Haldol, and Seroquel as prescribed. Labs, x-rays, and medications are reviewed. Overall prognosis remains guarded. We will talk to the family about CODE STATUS. The patient appears quite agitated, and may be going through withdrawal. We will see if we can gain some additional history about the patient's habits, from the family. Plan dated 07/11/2022. Cardiology has seen the patient, and discontinue the heparin and IV Cardizem. The patient remains on amiodarone at 0.5 mg/m for his atrial fibrillation with RVR. The patient spent the night on BiPAP at 16/6 and 40%. Labs, x-rays, medications are reviewed. He's currently on high flow nasal O2, but we told respiratory to Perez use AIRVO if the patient could not tolerate the high flow nasal oxygen. We will continue to follow make recommendations along the way. Prognosis is guarded. His overall agitation level is improved on Haldol, clonidine patch, nicotine patch, and Seroquel. Time with Patient: Greater than 30
[2022-07-11 11:23] LABS: Glucose,Whole Blood 249 mg/dL (70-110)
[2022-07-11] MEDS ORDERED: INSULIN ASPART (NovoLOG) 100 UNIT/ML VIAL SQ SCH ×2 (12:30)
[2022-07-11] MEDS: AMIODARONE 450 MG in DEXTROSE 5% IN WATER 250 ML IV SCH ×2 (12:31)
--- NOTE | 2022-07-11 12:47 | XR ---
EXAMINATION TYPE: XR chest 1V portable DATE OF EXAM: 07/11/2022 12:34 PM COMPARISON: Chest radiographs from 07/10/2022. TECHNIQUE: XR chest 1V portable Frontal view of the chest. CLINICAL INDICATION:Male, 66 years old with history of assess lungs; FINDINGS: Lungs/Pleura: Chronic emphysematous and fibrotic changes are demonstrated. No focal consolidation, pn eumothorax, pleural effusion. Pulmonary vascularity: Unremarkable. Heart/mediastinum: Cardiomediastinal silhouette is unremarkable. Atherosclerotic calcifications are seen in the aorta. Musculoskeletal: No acute osseous pathology. Other findings: None Lines/Tubes: Nasogastric tube with its distal tip and side-port projecting under the diaphragm. IMPRESSION: 1. Chronic emphysematous changes and pulmonary fibrotic changes without focal consolidation. 2. NG tube in appropriate position.
[2022-07-11] MEDS: LACTULOSE 20 GM/30 ML CUP PO SCH (13:21)
[2022-07-11 15:14] LABS: Glucose,Whole Blood 245 mg/dL (70-110)
--- NOTE | 2022-07-11 15:20 | P.PN ---
Subjective Progress Note Date: 07/11/22 CHIEF COMPLAINT: Ileus in HISTORY OF PRESENT ILLNESS: Patient admitted to the hospital with shortness of breath evidence of COPD exacerbation, bronchitis and SVT. Patient remains in the ICU. Currently on AIRVO. Computed tomography scan was negative for small bowel obstruction. Tube feedings were started at 20 mL per hour. Patient still has had no bowel activity. Medicine service has ordered a Fleet enema. Patient is also receiving lactulose. Afebrile. Mild tachycardia. Sodium 148 potassium 4.1 creatinine 1.08 Patient seen and examined with Dr. Jim PHYSICAL EXAM: VITAL SIGNS: Reviewed. GENERAL: Well-developed in no acute distress. ABDOMEN: Softer. Nontender. Distended. NEUROLOGIC: more awake ASSESSMENT: 1. Ileus 2. Acute COPD exacerbation with acute hypoxic respiratory failure 3. SVT PLAN: -Continue tube feedings -Change lactulose to 30ml scheduled 3 times a day -Continue ICU management -Continue supportive care Physician Welcome Desk Agent note has been reviewed by physician. Signing provider agrees with the documented findings, assessment, and plan of care. Objective - Vital Signs Vital signs: Vital Signs Temp 98.2 F 07/11/22 13:00 Pulse 108 H 07/11/22 15:00 Resp 19 07/11/22 15:00 BP 129/79 07/11/22 15:00 Pulse Ox 96 07/11/22 15:00 FiO2 40 07/11/22 15:00 Intake & Output 07/10/22 07/11/22 07/11/22 18:59 06:59 18:59 Intake Total 721.167 640.083 580 Output Total 645 760 390 Balance 76.167 -119.917 190 Weight 81.2 kg 81.4 kg Intake: IV 570 640 160 0.9 KVO 570 640 160 Intake, IV Titration 151.167 0.083 250 Amount Amiodarone 450 mg In 250 Dextrose 5% in Water 250 ml @ 0.5 MG/MIN 16.667 mls/hr IV .Q15H [facility] Rx#: [id number] Diltiazem 125 mg In 0.083 Sodium Chloride 0.9% 100 ml @ 5 MG/HR 5 mls/hr IV .Q24H [facility] Rx#:[id number] Diltiazem 125 mg In 101.167 Sodium Chloride 0.9% 100 ml @ Per Protocol IV .Q0M [facility] Rx#:[id number] cefTRIAXone 2 gm In 50 Sodium Chloride 0.9% 50 ml @ 100 mls/hr IVPB Q24HR [facility] Rx#:[id number] Tube Feeding 140 Other 30 Output: Urine 645 760 390 Other: Voiding Method Indwelling Catheter Indwelling Catheter - Labs CBC & Chem 7: 07/10/22 08:23 07/11/22 04:13 Labs: Abnormal Lab Results - Last 24 Hours (Table) 07/10/22 07/10/22 07/10/22 Range/Units 16:28 21:00 23:08 APTT 56.8 H (22.0-30.0) sec Sodium (137-145) mmol/L Chloride (98-107) mmol/L Carbon Dioxide (22-30) mmol/L BUN (9-20) mg/dL Glucose (74-99) mg/dL POC Glucose (mg/dL) 168 H 169 H (70-110) mg/dL Calcium (8.4-10.2) mg/dL Total Protein (6.3-8.2) g/dL Albumin (3.5-5.0) g/dL 07/11/22 07/11/22 07/11/22 Range/Units 04:13 04:13 07:00 APTT 56.5 H (22.0-30.0) sec Sodium 148 H (137-145) mmol/L Chloride 110 H (98-107) mmol/L Carbon Dioxide 32 H (22-30) mmol/L BUN 51 H (9-20) mg/dL Glucose 217 H (74-99) mg/dL POC Glucose (mg/dL) 223 H (70-110) mg/dL Calcium 8.0 L (8.4-10.2) mg/dL Total Protein 5.6 L (6.3-8.2) g/dL Albumin 3.2 L (3.5-5.0) g/dL 07/11/22 07/11/22 Range/Units 11:21 15:12 APTT (22.0-30.0) sec Sodium (137-145) mmol/L Chloride (98-107) mmol/L Carbon Dioxide (22-30) mmol/L BUN (9-20) mg/dL Glucose (74-99) mg/dL POC Glucose (mg/dL) 249 H 245 H (70-110) mg/dL Calcium (8.4-10.2) mg/dL Total Protein (6.3-8.2) g/dL Albumin (3.5-5.0) g/dL Microbiology - Last 24 Hours (Table) 07/06/22 16:57 Blood Culture - Preliminary Blood No Growth after 96 hours 07/06/22 16:48 Blood Culture - Preliminary Blood No Growth after 96 hours
--- NOTE | 2022-07-11 16:31 | P.PN ---
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 Patient tried breathing treatments at home without much relief. Patient was tachycardic on admission with heart rate in 160s and was found to be SVT patient was given Ellenson in the ER. Otherwise denied any complaints of chest pain. No nausea vomiting or abdominal pain. Denied any increased leg swelling. No fever no chills. No prior history of SVT. Chest x-ray showed COPD. No active cardiopulmonary disease. Mild pulmonary fibrotic changes. No significant change. CTA chest showed no evidence of PE. Emphysema and mild pulmonary fibrosis. No suspicious pulmonary mass. Laboratory data showed WBC 16.0 hemoglobin 16.0 and platelets 269 Sodium 139 potassium four-point 102 bicarb is 20 BUN 16 and creatinine 0.87 and lactic acid 2.7 Troponin x1 negative and proBNP is 378 TSH 0.49 6 Coronavirus and influenza AMB not detected. Urinalysis is negative for infection. 07/08/2022 Patient continues to be monitored in intensive care unit mostly on BiPAP support but able to be weaned to 3 to 4 L of oxygen via nasal cannula. He is unsure when he has had bowel movement and has limited to no bowel sounds for this reason abdominal xray has been performed showing mildly distended small bowel loops and some segments of colon as well. Consider generalized ileus and difficult to exclude the possibility of a distal colonic obstruction. White blood cell count today 6.1, sodium 144, potassium 4.6, BUN 40, creatinine 0.99, blood glucose 150, magnesium 2.4. Procalcitonin 0.55. Vitals today, patient is afebrile, heart rate 71, blood pressure 121/64, 95% oxygen saturation. Patient has been m aintained on dexmedetomidine for acute anxiety which is currently paused. Continues on IV Solu-Medrol, and bronchodilators. Patient is currently on IV cardizem gtt for tachycardia and will be transitioned to oral verapamil today, cardiology is following. 07/09/2022 Patient continues to be monitored in intensive care unit. White count elevated up to 12.4 today he has expiratory wheezing on exam changed from yesterday. Patient requiring bipap at 35% FiO2 currently. He did have low grade fever this morning 99 and is receiving acetaminophen as needed. chest xray today showing chronic emphysema and pulmonary fibrotic change. Procalcitonin level elevated at 0.55. IV ceftriaxone increased to 2 gram every 24 hours. Patient is continued on bronchodilators. Continues on IV solumedrol 60 mg q6h. Dexmedetomidine possibly being weaned off today, seroquel and haldol ordered with ativan as needed. P atient continues with significant abdominal distention and absent bowel sounds left lower quadrant. Did not receive lactulose yesterday. General surgery was consulted for further evaluation, currently placed NPO for possible ileus /bowel obstruction. He is hypertensive today with systolic in the 180s has been started on verapamil TID and also hydralazine 50 BID. Cardiology following. 07/10/2022 Patient evaluated today on BiPAP, fio2 has been increased to 40%, he is using accessory muscles to breath and appears quite aggitated. He is on combination of haldol, seroquel for this. Additionally, he was started on nicotine patch and clonidine patch. NG tube has been placed, patient has not had a BM. Abdominal Pelvis CT completed showing no CT evidence for small bowel obstruction. Patient also had follow up chest xray today showing COPD changes and no acute disease. Never the less he appears to have some respiratory distress requiring BiPAP. white count 11.7 today, sodium 149, BUN 47, creatinine 1.05, blood glucose 170s. Patient has been placed on amiodarone infusion and also heparin gtt as patient is unable to take oral medications currently. He continues on antibiotics. Continues on IV solumedrol. 07/11/2022 Patient is monitored in intensive care unit. Continues with NG tube. Tube feedings have been resumed with vital AF 1.2 with goal of 55 mls per hour. Currrently running at 20 mLs/hour. Patient has free water flush 30 mL every 4 hours, would like to increase free water and discontinue IV fluids. Sodium level today 148, potassium 4.1, chloride 110, BUN 51, creatinine 1.08. Blood glucose in the 240s and insulin has been increased. Patient is receiving lactulose, had fleet enema today. Has not had a BM this admission, bowel sounds in all 4 quadrants today. Amiodarone has been discontinued. Continues on oral verapamil. Heart rate is improving. Patient trialed on airvo 60/60 today. Chest xray showing no focal consolidation. Unable to complete review of systems today, patient is sedated on bipap. PHYSICAL EXAMINATION: Patient is lying in the bed comfortably, no acute distress, sedated On BiPAP. HEENT: Normocephalic. Neck is supple. Pupils reactive. Nostrils clear. Oral cavity is moist. Neck reveals no JVD, carotid bruits, or thyromegaly. CHEST EXAMINATION: Trachea is central. Symmetrical expansion. Bilateral diminished sounds and diffuse wheezing. Scattered rhonchi.. CARDIAC: Normal S1, S2 with no gallops. No murmurs regular rhythm, rapid rate ABDOMEN: Soft. Bowel sounds present. Nontender. No organomegaly. No abdominal bruits. Distended. Extremities: reveal no edema. No clubbing or cyanosis Neurologically sedated unable to complete full exam Skin: No rash or skin lesions. Musculoskeletal: No joint swelling or deformity. Normal range of motion. Assessment and Plan Assessment Acute hypoxic respiratory failure requiring BiPAP Worsening shortness of breath secondary to acute COPD exacerbation and tracheobronchitis Supraventricular tachycardia on admission. Sinus tachycardia Hypertension Hypernatremia Ileus BPH Prior history of smoking History of throat cancer and vocal cord status post radiation 2016 DVT prophylaxis GI prophyalxis Full Code Plan: Patient is closely monitored in intensive care unit Patient will be continued Solu-Medrol, duo nebs and Symbicort. Currently on antibiotics in the form of ceftriaxone. Transitioned to oral verapamil, eliquis Continue on seroquel TID Cardiology and pulmonary following Surgical consultation in place, continue with NG tube, lactulose TID The impression and plan of care has been dictated by Maria De Jesus Mccoy, Nurse Practitioner as directed. Dr. Alison MD I have performed a history and physical examination and medical decision making of this patient, discussed the same with the dictator, and agree with the dictators assessment and plan as written, documented as a scribe. Based on total visit time, I have performed more than 50% of this visit. Objective - Vital Signs Vital signs: Vital Signs Temp 98.2 F 07/11/22 13:00 Pulse 116 H 07/11/22 13:00 Resp 24 07/11/22 13:00 BP 147/94 07/11/22 13:00 Pulse Ox 93 L 07/11/22 13:00 FiO2 60 07/11/22 12:00 Intake & Output 07/10/22 07/11/22 07/11/22 18:59 06:59 18:59 Intake Total 721.167 640.083 580 Output Total 645 760 390 Balance 76.167 -119.917 190 Weight 81.2 kg 81.4 kg Intake: IV 570 640 160 0.9 KVO 570 640 160 Intake, IV Titration 151.167 0.083 250 Amount Amiodarone 450 mg In 250 Dextrose 5% in Water 250 ml @ 0.5 MG/MIN 16.667 mls/hr IV .Q15H [facility] Rx#: [id number] Diltiazem 125 mg In 0.083 Sodium Chloride 0.9% 100 ml @ 5 MG/HR 5 mls/hr IV .Q24H [facility] Rx#:[id number] Diltiazem 125 mg In 101.167 Sodium Chloride 0.9% 100 ml @ Per Protocol IV .Q0M [facility] Rx#:[id number] cefTRIAXone 2 gm In 50 Sodium Chloride 0.9% 50 ml @ 100 mls/hr IVPB Q24HR [facility] Rx#:[id number] Tube Feeding 140 Other 30 Output: Urine 645 760 390 Other: Voiding Method Indwelling Catheter Indwelling Catheter - Labs CBC & Chem 7: 07/10/22 08:23 07/11/22 04:13 Labs: Abnormal Lab Results - Last 24 Hours (Table) 07/10/22 07/10/22 07/10/22 Range/Units 16:28 21:00 23:08 APTT 56.8 H (22.0-30.0) sec Sodium (137-145) mmol/L Chloride (98-107) mmol/L Carbon Dioxide (22-30) mmol/L BUN (9-20) mg/dL Glucose (74-99) mg/dL POC Glucose (mg/dL) 168 H 169 H (70-110) mg/dL Calcium (8.4-10.2) mg/dL Total Protein (6.3-8.2) g/dL Albumin (3.5-5.0) g/dL 07/11/22 07/11/22 07/11/22 Range/Units 04:13 04:13 07:00 APTT 56.5 H (22.0-30.0) sec Sodium 148 H (137-145) mmol/L Chloride 110 H (98-107) mmol/L Carbon Dioxide 32 H (22-30) mmol/L BUN 51 H (9-20) mg/dL Glucose 217 H (74-99) mg/dL POC Glucose (mg/dL) 223 H (70-110) mg/dL Calcium 8.0 L (8.4-10.2) mg/dL Total Protein 5.6 L (6.3-8.2) g/dL Albumin 3.2 L (3.5-5.0) g/dL 07/11/22 Range/Units 11:21 APTT (22.0-30.0) sec Sodium (137-145) mmol/L Chloride (98-107) mmol/L Carbon Dioxide (22-30) mmol/L BUN (9-20) mg/dL Glucose (74-99) mg/dL POC Glucose (mg/dL) 249 H (70-110) mg/dL Calcium (8.4-10.2) mg/dL Total Protein (6.3-8.2) g/dL Albumin (3.5-5.0) g/dL Microbiology - Last 24 Hours (Table) 07/06/22 16:57 Blood Culture - Preliminary Blood No Growth after 96 hours 07/06/22 16:48 Blood Culture - Preliminary Blood No Growth after 96 hours Assessment and Plan Time with Patient: Less than 30
[2022-07-11 18:34] LABS: Glucose,Whole Blood 181 mg/dL (70-110)
[2022-07-11] MEDS ORDERED: AMIODARONE 360 MG in DEXTROSE 5% IN WATER 200 ML IV ONE ×2 (19:56)
[2022-07-11] MEDS ORDERED: AMIODARONE 450 MG in DEXTROSE 5% IN WATER 250 ML IV SCH ×4 (20:00)
[2022-07-11 20:45] LABS: Glucose,Whole Blood 148 mg/dL (70-110)
[2022-07-11] MEDS: ATORVASTATIN 10 MG TAB PO SCH (20:57)
[2022-07-11] MEDS ORDERED: LACTULOSE 20 GM/30 ML CUP PO SCH (21:00)
[2022-07-12] MEDS: VERAPAMIL 80 MG TAB PO SCH ×4 (00:12→21:37)
[2022-07-12] MEDS: LACTULOSE 20 GM/30 ML CUP PO SCH ×2 (00:12→09:15)
[2022-07-12 00:24] LABS: Glucose,Whole Blood 241 mg/dL (70-110)
[2022-07-12] MEDS: INSULIN ASPART (NovoLOG) 100 UNIT/ML VIAL SQ SCH ×8 (00:27→17:17)
[2022-07-12] MEDS: HALOPERIDOL LACTATE 5 MG/ML 1 ML VIAL IVP PRN (00:35)
[2022-07-12] MEDS: methylPREDNISolone SOD SUCCI 125 MG/2 ML VIAL IV SCH ×4 (03:06→21:36)
[2022-07-12] MEDS: IPRATROPIUM-ALBUTEROL 3 ML NEB INHALATION PRN (03:12)
[2022-07-12 04:19] LABS: Basophils % (A) 0 %; Eosinophils % (A) 0 %; HCT 42.2 % (39.0-53.0); HGB 13.6 gm/dL (13.0-17.5); Hypochromasia Slight; Lymphocytes # (A) 0.4 k/uL (1.0-4.8); Lymphocytes % (A) 5 %; MCH 30.5 pg (25.0-35.0); MCHC 32.3 g/dL (31.0-37.0); MCV 94.5 fL (80.0-100.0); Mean Platelet Volume 7.6; Monocytes # (A) 0.3 k/uL (0-1.0); Monocytes % (A) 4 %; Neutrophils # (A) 7.6 k/uL (1.3-7.7); Neutrophils % (A) 89 %; Platelet Count 216 k/uL (150-450); RBC 4.46 m/uL (4.30-5.90); RDW 12.8 % (11.5-15.5); WBC 8.5 k/uL (3.8-10.6)
[2022-07-12 04:28] LABS: Potassium 4.1 mmol/L (3.5-5.1)
[2022-07-12 04:29] LABS: Magnesium 2.8 mg/dL (1.6-2.3)
[2022-07-12 04:30] LABS: Calcium 7.9 mg/dL (8.4-10.2)
[2022-07-12 06:25] LABS: Glucose,Whole Blood 273 mg/dL (70-110)
--- NOTE | 2022-07-12 07:26 | XR ---
EXAMINATION TYPE: XR chest 1V portable DATE OF EXAM: 07/12/2022 5:57 AM COMPARISON: Chest radiograph from one day prior. TECHNIQUE: XR chest 1V portable Portable AP radiograph of the chest. CLINICAL INDICATION:Male, 66 years old with history of CHF; FINDINGS: Lungs/Pleura: There is flattening of the diaphragm with increased lucency of the lungs. No evidence o f pneumothorax, pleural effusion or focal consolidation. Pulmonary vascularity: Mild pulmonary vascular congestion. Heart/mediastinum: Cardiomediastinal silhouette is unremarkable. Musculoskeletal: No acute osseous pathology. Lines/Tubes: Nasogastric tube with its distal tip and side-port projecting under the diaphragm. IMPRESSION: COPD changes with underlying pulmonary vascular congestion not entirely excluded, correlate with seru m BNP.
[2022-07-12] MEDS: BUDESONIDE 1 MG/2 ML NEBU INHALATION SCH ×2 (07:53→20:05)
[2022-07-12] MEDS: FORMOTEROL FUMARATE 20 MCG/2 ML NEBU INHALATION SCH ×2 (07:53→20:05)
[2022-07-12] MEDS: IPRATROPIUM-ALBUTEROL 3 ML NEB INHALATION SCH ×4 (07:53→20:05)
[2022-07-12] MEDS: INSULIN DETEMIR (LEVEMIR) 100 UNIT/ML SYR SQ SCH ×2 (07:56→21:38)
[2022-07-12] MEDS: APIXABAN 5 MG TAB PO SCH ×2 (09:15→21:37)
[2022-07-12] MEDS: FAMOTIDINE 20 MG/2 ML VIAL IV SCH ×2 (09:15→21:37)
[2022-07-12] MEDS: hydrALAZINE HCL 50 MG TAB PO SCH ×2 (09:15→21:37)
[2022-07-12] MEDS: QUEtiapine 50 MG TAB PO SCH ×3 (10:35→21:38)
[2022-07-12] MEDS: AMIODARONE 200 MG TAB PO SCH ×2 (10:42→21:37)
--- NOTE | 2022-07-12 11:17 | P.PN ---
Subjective Progress Note Date: 07/12/22 Principal diagnosis: SVT, COPD exacerbation. This is a 66-year-old white male with history of moderate severe COPD, benign prostatic hypertrophy, history of laryngeal cancer diagnosed back in 2017, patient underwent radiation treatment with full recovery. Patient presented to the ER yesterday, complaining mostly of cough wheezing shortness of breath, and upon his initial evaluation in the ER, patient was noted to be tachycardic and noted to be in supraventricular tachycardia. His heart rate was 160. Patient was hypertensive. And he was noted to have increased work of breathing. Patient received a adenosine, patient was placed on Cardizem drip at 15 mg per hour. Patient was admitted, and this consult was initiated. His COPD status was quite severe apparently and the patient was getting updraft treatment almost every 2 hours. Patient was also placed on BiPAP because he was noted to be quite dyspneic and in respiratory distress on nasal cannula. ABG on BiPAP showed a pO2 of 107 pCO2 51 pH of 7.31, and I got him down from 35% to 50%. I also arranged for the patient to transfer to the ICU as he was noted to seen to be quite dyspneic and his dyspnea was a bit of this proportional to his physical examination. CT angiogram of the chest done on his admission showed no evidence of pulmonary embolism, there was evidence of emphysema and mild pulmonary fibro sis. Progress note dated 07/08/2022. This is a 66-year-old male who was admitted to the hospital, on July 06, for SVT, and COPD exacerbation. He is seen today to 58. Currently, he is on 4 L of oxygen. He's been on BiPAP, with settings of 12/6 and 35%. He remains on dexmedetomidine at 0.5 mcg/kg/h, and Cardizem drip at 5 mg an hour, as well as saline at 10 mL an hour. The patient appears to be doing a bit better, and the goal today is to get him off the dexmedetomidine. White count 6.1, hemoglobin 13.2, hematocrit 39.5, and platelet count 244,000. Sodium 144, potassium 4.6, chlorides 112, CO2 24, BUN 40, creatinine 0.99. Chest x-ray shows some cardiomegaly, and changes of COPD. There is residual but improving infiltrate at the right midlung. Progress note dated 07/09/2022. 66-year-old male, again seen in room 258. The patient's on BiPAP, with settings of 12/6 and 35%. The patient's getting saline at KVO, and dexmedetomidine at 0.4 mcg/kg/h. We will attempted DC the dexmedetomidine, but given the patient's Seroquel, 50 mg 3 times a day, as well as when necessary Haldol. In addition, I told the nurse that she could use a small amount of Ativan when necessary. Whi te count 12.4, implement 13.9, hematocrit 41.6, and platelet count is normal. Sodium 145, potassium 4.2, chlorides 109, CO2 27, with a BUN of 41 and a creatinine of 1.01. Chest x-ray shows chronic emphysematous changes. Progress note dated 07/10/2022. 66-year-old male, seen again in room 258. The patient remains on BiPAP, with settings of 16/6 and 40%. Blood gases done this morning show pO2 69, pCO2 56, and a pH of 7.36. I was called by the nurses morning because the patient was very agitated. The patient apparently got Ativan early this morning. The patient apparently did not get his Seroquel for his Haldol. Hence, I stopped the Ativan altogether because it may be causing delirium. In addition, we going to use the Haldol 4 - 8 mg, every 4 hours as needed, and Seroquel 50 mg 3 times a day. White count 11.7, hemoglobin 14.6, hematocrit 42.9, and platelet count 242,000. Sodium 149, potassium 4.8, chlorides 110, CO2 31, BUN 47, and creatinine 1.05. Because the patient may be exhibiting withdrawal, we will place a clonidine patch on him, TTS #2, and also apply a nicotine patch 21 mg a day. Progress note dated 07/11/2022. 66-year-old male seen in room 258. This morning, the patient was converted from BiPAP, 2:15 liters high flow O2. He may need AIRVO. The patient still has an NG tube in place. He is getting saline at 20 mL an hour. At nighttime, he was on BiPAP, with settings of 16/6 and 40%. The patient's heparin and Cardizem will be discontinued. He remains on amiodarone at 0.5 mg/m. Sodium 148, potassium 4.1, chlorides 110, CO2 32, BUN 51, creatinine 1.08. Albumin is 3.2. PTT is 56.5. No chest x-ray today. Blood cultures have been negative. Progress note dated 07/12/2022. 66-year-old male, seen in room 258. The patient's currently on BiPAP at 16/6 and 40%. He remains on amiodarone, 0.5 mg/m, and saline at 20 mL an hour. Yesterday, he spent 4 hours on AIRVO. He is getting vital AF at 40 mL an hour, with a goal of 55. His overall condition remains very critical. Today's labs include a white count 8.5, hemoglobin 13.6, hematocrit 42.2, and platelet count 216,000. Sodium 150, potassium 4.1, chlorides 112, CO2 33, BUN 55, and creati nine 1.22. Blood cultures are negative. Chest x-rays consistent with changes of COPD. Objective - Vital Signs Vital signs: Vital Signs Temp 98.0 F 07/12/22 09:00 Pulse 121 H 07/12/22 10:00 Resp 25 H 07/12/22 10:00 BP 170/156 07/12/22 10:00 Pulse Ox 96 07/12/22 10:00 FiO2 60 07/12/22 10:00 Intake & Output 07/11/22 07/12/22 07/12/22 18:59 06:59 18:59 Intake Total 750 270 179 Output Total 565 665 175 Balance 185 -395 4 Weight 82.1 kg Intake: IV 240 240 60 0.9 KVO 240 240 60 Intake, IV Titration 250 Amount Amiodarone 450 mg In 250 Dextrose 5% in Water 250 ml @ 0.5 MG/MIN 16.667 mls/hr IV .Q15H [facility] Rx#: [id number] Tube Feeding 230 30 89 Other 30 30 Output: Urine 565 665 175 Other: Voiding Method Indwelling Catheter Indwelling Catheter - Exam No acute distress, a bit agitated, currently on BiPAP. HEENT examination is grossly unremarkable. Neck supple. Full range of motion. No adenopathy thyromegaly or neck vein distention. Cardiovascular examination reveals regular rhythm rate. S1-S2 normal. No S3 or S4. No discernible murmur noted. Heart sounds are distant. Heart rate is 121 bpm. Lungs reveal bilateral coarse inspiratory expiratory rhonchi, and expiratory wheezes. No crackles. Saturations are 96% on BiPAP. Abdomen soft, without bowel sounds. No masses or tenderness. Extremities are intact. No cyanosis clubbing or edema. Skin is without rash or lesion. Neurologic examination is difficult to assess. - Labs CBC & Chem 7: 07/12/22 04:05 07/12/22 04:05 Labs: Abnormal Lab Results - Last 24 Hours (Table) 07/11/22 07/11/22 07/11/22 Range/Units 11:21 15:12 18:33 Lymphocytes # (1.0-4.8) k/uL Sodium (137-145) mmol/L Chloride (98-107) mmol/L Carbon Dioxide (22-30) mmol/L BUN (9-20) mg/dL Glucose (74-99) mg/dL POC Glucose (mg/dL) 249 H 245 H 181 H (70-110) mg/dL Calcium (8.4-10.2) mg/dL Magnesium (1.6-2.3) mg/dL 07/11/22 07/12/22 07/12/22 Range/Units 20:43 00:22 04:05 Lymphocytes # 0.4 L (1.0-4.8) k/uL Sodium (137-145) mmol/L Chloride (98-107) mmol/L Carbon Dioxide (22-30) mmol/L BUN (9-20) mg/dL Glucose (74-99) mg/dL POC Glucose (mg/dL) 148 H 241 H (70-110) mg/dL Calcium (8.4-10.2) mg/dL Magnesium (1.6-2.3) mg/dL 07/12/22 07/12/22 Range/Units 04:05 06:24 Lymphocytes # (1.0-4.8) k/uL Sodium 150 H (137-145) mmol/L Chloride 112 H (98-107) mmol/L Carbon Dioxide 33 H (22-30) mmol/L BUN 55 H (9-20) mg/dL Glucose 307 H (74-99) mg/dL POC Glucose (mg/dL) 273 H (70-110) mg/dL Calcium 7.9 L (8.4-10.2) mg/dL Magnesium 2.8 H (1.6-2.3) mg/dL Microbiology - Last 24 Hours (Table) 07/06/22 16:57 Blood Culture - Preliminary Blood No Growth after 120 hours 07/06/22 16:48 Blood Culture - Preliminary Blood No Growth after 120 hours Assessment and Plan Assessment: Acute hypoxemic respiratory failure secondary to COPD exacerbation. Possible acute withdrawal, from either tobacco and/or alcohol. Acute tracheobronchitis. Supraventricular tachycardia/atrial fibrillation with RVR. Acute hypernatremia. History of laryngeal carcinoma, in remission, status post radiation treatment, diagnosed in 2017. Acute hypercapnic respiratory failure secondary to severe COPD. Plan: Plan dated 07/08/2022. The patient remains on dexmedetomidine. We will attempt to get her off of that drug. There are other medications that we can use, to substitute for that medication. In addition, the patient remains on appropriate medications for his COPD exacerbation including Solu-Medrol. Labs, x-rays, and medications are reviewed. The patient remains on Rocephin empirically. He also remains on Pulmicort 1 mg mixed with formoterol 20 g, twice a day. We will continue to follow make recommendations along the way. Prognosis is guarded. Plan dated 07/09/2022. Labs, x-rays, and medications are reviewed. The patient remains on dexmedetomidine. I've given the nurses some orders for Seroquel, and Haldol, to get the patient off of dexmedetomidine. The patient's getting saline at KVO. The patient's currently on BiPAP, 12/6, and 35%. We will continue to follow make recommendations along the way. The patient remains on Rocephin empirically. Culture data is negative. Chest x-ray is evaluated. Prognosis is certainly guarded. Plan dated 07/10/2022. We will add a clonidine patch, TTS #2, along with a nicotine patch, 21 mg a day. I will DC the Ativan. May be causing delirium. In addition, I will implore the nurse to use the Haldol, and Seroquel as prescribed. Labs, x-rays, and medications are reviewed. Overall prognosis remains guarded. We will talk to the family about CODE STATUS. The patient appears quite agitated, and may be going through withdrawal. We will see if we can gain some additional history about the patient's habits, from the family. Plan dated 07/11/2022. Cardiology has seen the patient, and discontinue the heparin and IV Cardizem. The patient remains on amiodarone at 0.5 mg/m for his atrial fibrillation with RVR. The patient spent the night on BiPAP at 16/6 and 40%. Labs, x-rays, medications are reviewed. He's currently on high flow nasal O2, but we told respiratory to Perez use AIRVO if the patient could not tolerate the high flow nasal oxygen. We will continue to follow make recommendations along the way. Prognosis is guarded. His overall agitation level is improved on Haldol, clonidine patch, nicotine patch, and Seroquel. Plan dated 07/12/2022. The patient remains a full code. The patient is currently on BiPAP with settings of 16/6 and 40%. He remains on amiodarone for his atrial fibrillation. He is getting saline at 20 mL an hour. The patient has become hypernatremic. We will discontinue the saline in favor of dextrose. He did spend 4 hours on AIRVO yesterday. He is getting tube feeds in the form of vital AF. Goal is 55. He is at 40 ml 's per hour. Additional recommendations and suggestions are forthcoming. Prognosis is certainly guarded. The patient has medication for agitation and restlessness. Time with Patient: Greater than 30
[2022-07-12 11:58] LABS: Glucose,Whole Blood 231 mg/dL (70-110)
[2022-07-12] MEDS: DEXTROSE 5% IN WATER 1,000 ML IV SCH (12:20)
--- NOTE | 2022-07-12 12:21 | PN ---
PROGRESS NOTE SUBJECTIVE: Mr. Leach is in atrial fibrillation. I have switched him from IV to oral amiodarone. I have also started him on verapamil. Rate control is better. He has history of laryngeal CA, status post radiation. He has multiple comorbid conditions, but prognosis is guarded. He is somewhat better today compared to yesterday. OBJECTIVE: VITAL SIGNS: Stable. HEART: S1 and S2 heard normally. Irregularity in rhythm. Short systolic murmur at left sternal border. LUNGS: Diminished air entry in lung valle with scattered rhonchi. PLAN: To continue amiodarone orally instead of IV. Continue verapamil. MMODL / IJN: [id number] /
--- NOTE | 2022-07-12 13:53 | P.PN ---
Subjective Progress Note Date: 07/12/22 CHIEF COMPLAINT: Ileus in HISTORY OF PRESENT ILLNESS: Patient admitted to the hospital with shortness of breath evidence of COPD exacerbation, bronchitis and SVT. Patient remains in the ICU. Currently on AIRVO. Patient's abdomen is more distended today. He does have some pain. Denies any nausea or vomiting. He still has had no bowel movements even with the Fleet enemas and lactulose. He's currently on tube feeds at 40 mL per hour. Tachycardic. WBC 8.5 Na 150 Patient seen and examined with Dr. Jim PHYSICAL EXAM: VITAL SIGNS: Reviewed. GENERAL: Well-developed in no acute distress. ABDOMEN: Distended. Diffuse tenderness NEUROLOGIC: more awake ASSESSMENT: 1. Ileus 2. Acute COPD exacerbation with acute hypoxic respiratory failure 3. SVT PLAN: -Placed tube feeds on hold -Discontinue lactulose -Dulcolax suppositories ordered daily -Continue NG tube for decompression -Unable to use Reglan because it interacts with the patient Seroquel -Continue ICU management -Continue supportive care Physician Patient Navigator note has been reviewed by physician. Signing provider agrees with the documented findings, assessment, and plan of care. Objective - Vital Signs Vital signs: Vital Signs Temp 98.0 F 07/12/22 09:00 Pulse 128 H 07/12/22 13:00 Resp 15 07/12/22 13:00 BP 130/91 07/12/22 13:00 Pulse Ox 94 L 07/12/22 13:00 FiO2 60 07/12/22 12:00 Intake & Output 07/11/22 07/12/22 07/12/22 18:59 06:59 18:59 Intake Total 750 270 445 Output Total 565 665 295 Balance 185 -395 150 Weight 82.1 kg Intake: IV 240 240 100 0.9 KVO 240 240 100 Intake, IV Titration 250 75 Amount Amiodarone 450 mg In 250 Dextrose 5% in Water 250 ml @ 0.5 MG/MIN 16.667 mls/hr IV .Q15H [facility] Rx#: [id number] Dextrose 5% in Water 1, 75 000 ml @ 75 mls/hr IV . [id number] [facility] Rx#:[id number] Tube Feeding 230 30 120 Other 30 150 Output: Urine 565 665 295 Other: Voiding Method Indwelling Catheter Indwelling Catheter Indwelling Catheter - Labs CBC & Chem 7: 07/12/22 04:05 07/12/22 04:05 Labs: Abnormal Lab Results - Last 24 Hours (Table) 07/11/22 07/11/22 07/11/22 Range/Units 15:12 18:33 20:43 Lymphocytes # (1.0-4.8) k/uL Sodium (137-145) mmol/L Chloride (98-107) mmol/L Carbon Dioxide (22-30) mmol/L BUN (9-20) mg/dL Glucose (74-99) mg/dL POC Glucose (mg/dL) 245 H 181 H 148 H (70-110) mg/dL Calcium (8.4-10.2) mg/dL Magnesium (1.6-2.3) mg/dL 07/12/22 07/12/22 07/12/22 Range/Units 00:22 04:05 04:05 Lymphocytes # 0.4 L (1.0-4.8) k/uL Sodium 150 H (137-145) mmol/L Chloride 112 H (98-107) mmol/L Carbon Dioxide 33 H (22-30) mmol/L BUN 55 H (9-20) mg/dL Glucose 307 H (74-99) mg/dL POC Glucose (mg/dL) 241 H (70-110) mg/dL Calcium 7.9 L (8.4-10.2) mg/dL Magnesium 2.8 H (1.6-2.3) mg/dL 07/12/22 07/12/22 Range/Units 06:24 11:57 Lymphocytes # (1.0-4.8) k/uL Sodium (137-145) mmol/L Chloride (98-107) mmol/L Carbon Dioxide (22-30) mmol/L BUN (9-20) mg/dL Glucose (74-99) mg/dL POC Glucose (mg/dL) 273 H 231 H (70-110) mg/dL Calcium (8.4-10.2) mg/dL Magnesium (1.6-2.3) mg/dL Microbiology - Last 24 Hours (Table) 07/06/22 16:57 Blood Culture - Preliminary Blood No Growth after 120 hours 07/06/22 16:48 Blood Culture - Preliminary Blood No Growth after 120 hours
[2022-07-12] MEDS: bisacodyL 10 MG SUPP RECTAL SCH (14:14)
[2022-07-12 17:13] LABS: Glucose,Whole Blood 178 mg/dL (70-110)
[2022-07-12 19:49] LABS: Glucose,Whole Blood 172 mg/dL (70-110)
[2022-07-12] MEDS: ATORVASTATIN 10 MG TAB PO SCH (21:37)
[2022-07-13] MEDS ORDERED: INSULIN ASPART (NovoLOG) 100 UNIT/ML VIAL SQ SCH
[2022-07-13 00:56] LABS: Glucose,Whole Blood 182 mg/dL (70-110)
[2022-07-13] MEDS: INSULIN ASPART (NovoLOG) 100 UNIT/ML VIAL SQ SCH ×8 (01:08→16:42)
[2022-07-13] MEDS: DEXTROSE 5% IN WATER 1,000 ML IV SCH ×2 (01:29→12:11)
[2022-07-13] MEDS: HALOPERIDOL LACTATE 5 MG/ML 1 ML VIAL IVP PRN (01:29)
--- NOTE | 2022-07-13 04:20 | XR ---
EXAMINATION TYPE: XR chest 1V DATE OF EXAM: 07/13/2022 COMPARISON: 07/12/2022 HISTORY: Check tube placement TECHNIQUE: Single view FINDINGS: There is nasogastric tube and the tip is in the lateral gastric fundus. There is mild incre ased interstitial density in the lower lung valle. No heart failure. Heart size is normal. IMPRESSION: Mild interstitial infiltrates and subsegmental atelectasis are increased compared to yest miguelay. No obvious heart failure.
[2022-07-13] MEDS: methylPREDNISolone SOD SUCCI 125 MG/2 ML VIAL IV SCH ×2 (06:08→08:46)
[2022-07-13] MEDS: INSULIN DETEMIR (LEVEMIR) 100 UNIT/ML SYR SQ SCH ×2 (06:08→20:41)
[2022-07-13 06:13] LABS: Glucose,Whole Blood 175 mg/dL (70-110)
[2022-07-13 06:50] LABS: Glucose,Whole Blood 165 mg/dL (70-110)
[2022-07-13 07:03] LABS: Basophils % (A) 0 %; Eosinophils % (A) 0 %; HGB 14.7 gm/dL (13.0-17.5); Hypochromasia Slight; Lymphocytes # (A) 0.5 k/uL (1.0-4.8); Lymphocytes % (A) 5 %; MCH 30.5 pg (25.0-35.0); MCHC 32.1 g/dL (31.0-37.0); MCV 95.2 fL (80.0-100.0); Mean Platelet Volume 7.5; Monocytes # (A) 0.3 k/uL (0-1.0); Monocytes % (A) 3 %; Neutrophils % (A) 90 %; Platelet Count 205 k/uL (150-450); RBC 4.83 m/uL (4.30-5.90); RDW 12.5 % (11.5-15.5); WBC 9.9 k/uL (3.8-10.6)
[2022-07-13 07:25] LABS: Calcium 7.7 mg/dL (8.4-10.2); Potassium 3.9 mmol/L (3.5-5.1)
[2022-07-13] MEDS: BUDESONIDE 1 MG/2 ML NEBU INHALATION SCH ×2 (07:28→19:50)
[2022-07-13] MEDS: IPRATROPIUM-ALBUTEROL 3 ML NEB INHALATION SCH ×4 (07:28→19:50)
[2022-07-13] MEDS: FORMOTEROL FUMARATE 20 MCG/2 ML NEBU INHALATION SCH ×2 (07:28→19:50)
--- NOTE | 2022-07-13 08:46 | P.NPCON ---
History of Present Illness - Reason for Consult hypernatremia - History of Present Illness Reason for consultation: Hypernatremia History of present illness: Patient is a 66-year-old male seen in consultation for hypernatremia. Patient's sodium level was normal on admission and has been gradually trending up and is up to 150 today. It was also 150 yesterday. Patient presented to the hospital on 07/06/2022 shortness of breath that was progressively getting worse. Patient was also noted to be in SVT seems to have resolved now. Due to changes in mentation he was not tolerating any oral intake and was receiving tube feeds; however tube feeds are now held due to ileus. He currently has an NG tube. Renal function has been fairly stable this admission with creatinine 0.87 on admission and is 1.2 today. Heart rate is currently controlled. He is on oral amiodarone. Patient's mentation is also improved. Computed tomography scan done July 10 showed no hydronephrosis. No small bowel obstruction was noted. Surgery is following. Vital signs are stable. General: Awake. No acute distress. HEENT: Head exam is unremarkable. NG tube noted. LUNGS: Breath sounds decreased. HEART: Rate and Rhythm are regular. ABDOMEN: Soft, distention noted. EXTREMITITES: No edema. 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) History of Any Multi-Drug Resistant Organisms: None Reported Past Surgical History: No Surgical Hx Reported Additional Past Surgical History / Comment(s): SX INFANT "CORD STRANGLED BOWEL", HAS HAD TOOTH EXTRACTION WITH ANESTHESIA Past Anesthesia/Blood Transfusion Reactions: Unable to Obtain Additional Past Anesthesia/Blood Transfusion Reaction / Comment(s): patient has not received blood or anesthetic Smoking Status: Former smoker - Past Family History Father Family Medical History: No Reported History Mother Family Medical History: No Reported History Medications and Allergies Home Medications Medication Instructions Recorded Confirmed Type Albuterol Inhaler [Ventolin Hfa 2 puff INHALATION RT-QID PRN 05/01/17 07/06/22 History Inhaler] Fluticasone Propion/Salmeterol 1 puff INHALATION RT-DAILY 07/06/22 07/06/22 History [Advair 250-50 Diskus] Ipratropium-Albuterol Nebulize 3 ml INHALATION RT-QID PRN 07/06/22 07/06/22 History [Duoneb 0.5 mg-3 mg/3 ml Soln] Omeprazole 20 mg PO DAILY 07/06/22 07/06/22 History Simvastatin [Zocor] 20 mg PO HS 07/06/22 07/06/22 History Allergies Allergy/AdvReac Type Severity Reaction Status Date / Time No Known Allergies Allergy Verified 07/06/22 16:49 Physical Exam Vitals: Vital Signs Temp Pulse Resp BP Pulse Ox FiO2 07/13/22 07:49 78 07/13/22 07:41 70 07/13/22 07:40 61 07/13/22 07:28 78 07/13/22 07:26 95 60 07/13/22 07:00 60 17 145/74 95 07/13/22 06:00 82 22 179/93 96 07/13/22 05:00 85 22 157/96 94 L 07/13/22 04:00 80 21 159/107 94 L 07/13/22 03:40 60 07/13/22 03:00 83 23 159/83 93 L 07/13/22 02:00 84 28 H 155/81 94 L 07/13/22 01:00 77 22 126/80 93 L 07/13/22 00:00 79 23 150/72 92 L 07/12/22 23:32 92 L 60 07/12/22 23:00 87 25 H 144/81 92 L 07/12/22 22:00 77 19 151/72 94 L 07/12/22 21:00 65 18 140/77 94 L 07/12/22 20:34 64 07/12/22 20:24 76 07/12/22 20:22 72 07/12/22 20:05 79 60 07/12/22 20:00 80 17 169/83 94 L 07/12/22 19:18 78 22 162/79 93 L 07/12/22 19:00 77 23 113/82 93 L 07/12/22 18:00 87 20 144/88 93 L 07/12/22 17:00 115 H 19 128/77 95 07/12/22 16:29 118 H 07/12/22 16:10 118 H 60 07/12/22 16:00 97.7 F 113 H 18 143/91 93 L 60 07/12/22 15:00 99 23 159/93 97 07/12/22 14:00 101 H 15 143/95 94 L 07/12/22 13:00 128 H 15 130/91 94 L 07/12/22 12:00 124 H 25 H 149/93 94 L 60 07/12/22 11:29 118 H 07/12/22 11:17 121 H 60 07/12/22 11:00 112 H 18 158/97 95 60 07/12/22 10:00 121 H 25 H 170/156 96 60 07/12/22 09:24 60 07/12/22 09:00 98.0 F 113 H 25 H 163/105 96 Intake and Output 07/12/22 07/13/22 07/13/22 22:59 06:59 14:59 Intake Total 600 600 75 Output Total 440 365 40 Balance 160 235 35 Intake: IV 225 600 75 0.9 KVO 225 600 75 Intake, IV Titration 375 Amount Dextrose 5% in Water 1, 375 000 ml @ 75 mls/hr IV . [id number] [facility] Rx#:[id number] Output: Urine 440 365 40 Other: Voiding Method Indwelling Catheter Indwelling Catheter Weight 81.3 kg Results - Lab Results Most recent lab results ABG pH 7.36 (7.35-7.45) 07/10/22 07:02 ABG pCO2 56 mmHg (35-45) H 07/10/22 07:02 ABG pO2 69 mmHg (83-108) L 07/10/22 07:02 ABG HCO3 31 mmol/L (21-25) H 07/10/22 07:02 ABG O2 Saturation 93.8 % (94-97) L 07/10/22 07:02 Calcium 7.7 mg/dL (8.4-10.2) L 07/13/22 06:21 Magnesium 2.8 mg/dL (1.6-2.3) H 07/12/22 04:05 07/13/22 06:21 07/13/22 06:21 Assessment and Plan Plan: Assessment: 1. Mild acute kidney injury secondary to hemodynamic ATN. Creatinine 1.2 today. No hydronephrosis noted on CAT scan. 2. Hypernatremia from lack of oral water intake. 3. Ileus. Surgery following. Currently has NG tube. 4. SVT. Seen by cardiology. Heart rate currently stable. 5. Diabetes mellitus. Plan: Increase D5W rate to 125 mL an hour. Repeat sodium level at 5 PM. Continue to monitor renal function and urine output. Avoid nephrotoxins. Thank you for the consultation. I will continue to follow the patient with you during his hospital stay.
[2022-07-13] MEDS: QUEtiapine 50 MG TAB PO SCH ×3 (08:47→20:56)
[2022-07-13] MEDS: hydrALAZINE HCL 50 MG TAB PO SCH ×2 (08:47→20:37)
[2022-07-13] MEDS: VERAPAMIL 80 MG TAB PO SCH ×3 (08:47→20:55)
[2022-07-13] MEDS: APIXABAN 5 MG TAB PO SCH ×2 (08:47→20:38)
[2022-07-13] MEDS: FAMOTIDINE 20 MG/2 ML VIAL IV SCH ×2 (08:48→20:38)
[2022-07-13] MEDS: bisacodyL 10 MG SUPP RECTAL SCH (08:48)
[2022-07-13] MEDS: AMIODARONE 200 MG TAB PO SCH ×2 (08:52→20:38)
--- NOTE | 2022-07-13 09:59 | P.PN ---
Progress Note - Text Progress Note Date: 07/13/22 Patient remains clinically unchanged. It is unclear exactly bowel movements. On exam vital signs are stable. Abdomen soft but distended. Ileus. Patient will K receive supportive care.
[2022-07-13 11:28] LABS: Glucose,Whole Blood 237 mg/dL (70-110)
--- NOTE | 2022-07-13 12:19 | P.PN ---
Subjective Progress Note Date: 07/13/22 Principal diagnosis: SVT, COPD exacerbation. This is a 66-year-old white male with history of moderate severe COPD, benign prostatic hypertrophy, history of laryngeal cancer diagnosed back in 2017, patient underwent radiation treatment with full recovery. Patient presented to the ER yesterday, complaining mostly of cough wheezing shortness of breath, and upon his initial evaluation in the ER, patient was noted to be tachycardic and noted to be in supraventricular tachycardia. His heart rate was 160. Patient was hypertensive. And he was noted to have increased work of breathing. Patient received a adenosine, patient was placed on Cardizem drip at 15 mg per hour. Patient was admitted, and this consult was initiated. His COPD status was quite severe apparently and the patient was getting updraft treatment almost every 2 hours. Patient was also placed on BiPAP because he was noted to be quite dyspneic and in respiratory distress on nasal cannula. ABG on BiPAP showed a pO2 of 107 pCO2 51 pH of 7.31, and I got him down from 35% to 50%. I also arranged for the patient to transfer to the ICU as he was noted to seen to be quite dyspneic and his dyspnea was a bit of this proportional to his physical examination. CT angiogram of the chest done on his admission showed no evidence of pulmonary embolism, there was evidence of emphysema and mild pulmonary fibro sis. Progress note dated 07/08/2022. This is a 66-year-old male who was admitted to the hospital, on July 06, for SVT, and COPD exacerbation. He is seen today to 58. Currently, he is on 4 L of oxygen. He's been on BiPAP, with settings of 12/6 and 35%. He remains on dexmedetomidine at 0.5 mcg/kg/h, and Cardizem drip at 5 mg an hour, as well as saline at 10 mL an hour. The patient appears to be doing a bit better, and the goal today is to get him off the dexmedetomidine. White count 6.1, hemoglobin 13.2, hematocrit 39.5, and platelet count 244,000. Sodium 144, potassium 4.6, chlorides 112, CO2 24, BUN 40, creatinine 0.99. Chest x-ray shows some cardiomegaly, and changes of COPD. There is residual but improving infiltrate at the right midlung. Progress note dated 07/09/2022. 66-year-old male, again seen in room 258. The patient's on BiPAP, with settings of 12/6 and 35%. The patient's getting saline at KVO, and dexmedetomidine at 0.4 mcg/kg/h. We will attempted DC the dexmedetomidine, but given the patient's Seroquel, 50 mg 3 times a day, as well as when necessary Haldol. In addition, I told the nurse that she could use a small amount of Ativan when necessary. Whi te count 12.4, implement 13.9, hematocrit 41.6, and platelet count is normal. Sodium 145, potassium 4.2, chlorides 109, CO2 27, with a BUN of 41 and a creatinine of 1.01. Chest x-ray shows chronic emphysematous changes. Progress note dated 07/10/2022. 66-year-old male, seen again in room 258. The patient remains on BiPAP, with settings of 16/6 and 40%. Blood gases done this morning show pO2 69, pCO2 56, and a pH of 7.36. I was called by the nurses morning because the patient was very agitated. The patient apparently got Ativan early this morning. The patient apparently did not get his Seroquel for his Haldol. Hence, I stopped the Ativan altogether because it may be causing delirium. In addition, we going to use the Haldol 4 - 8 mg, every 4 hours as needed, and Seroquel 50 mg 3 times a day. White count 11.7, hemoglobin 14.6, hematocrit 42.9, and platelet count 242,000. Sodium 149, potassium 4.8, chlorides 110, CO2 31, BUN 47, and creatinine 1.05. Because the patient may be exhibiting withdrawal, we will place a clonidine patch on him, TTS #2, and also apply a nicotine patch 21 mg a day. Progress note dated 07/11/2022. 66-year-old male seen in room 258. This morning, the patient was converted from BiPAP, 2:15 liters high flow O2. He may need AIRVO. The patient still has an NG tube in place. He is getting saline at 20 mL an hour. At nighttime, he was on BiPAP, with settings of 16/6 and 40%. The patient's heparin and Cardizem will be discontinued. He remains on amiodarone at 0.5 mg/m. Sodium 148, potassium 4.1, chlorides 110, CO2 32, BUN 51, creatinine 1.08. Albumin is 3.2. PTT is 56.5. No chest x-ray today. Blood cultures have been negative. Progress note dated 07/12/2022. 66-year-old male, seen in room 258. The patient's currently on BiPAP at 16/6 and 40%. He remains on amiodarone, 0.5 mg/m, and saline at 20 mL an hour. Yesterday, he spent 4 hours on AIRVO. He is getting vital AF at 40 mL an hour, with a goal of 55. His overall condition remains very critical. Today's labs include a white count 8.5, hemoglobin 13.6, hematocrit 42.2, and platelet count 216,000. Sodium 150, potassium 4.1, chlorides 112, CO2 33, BUN 55, and creati nine 1.22. Blood cultures are negative. Chest x-rays consistent with changes of COPD. Progress note dated 07/13/2022. 66-year-old male seen in room 258. The patient is currently on AIRVO, at 60 L /m, with an FiO2 of 60%. He is getting dextrose, at 125 mL an hour. He did not use BiPAP last night. Tube feedings on hold, as per surgery. Solu-Medrol is reduced from 60 mg, to 40 mg, every 6 hours. He does appear much more awake and alert today. He is not so agitated and restless. White count 9.9, hemoglobin 14.7, hematocrit 46, and platelet count 205,000. Sodium 150, potassium 3.9, chlorides 113, CO2 35, BUN 51, creatinine 1.21. Microbiologic data is negative. Chest x-ray continues to show mostly clear lung valle, with mild interstitial changes. Objective - Vital Signs Vital signs: Vital Signs Temp 97.9 F 07/13/22 12:00 Pulse 84 07/13/22 12:00 Resp 23 07/13/22 12:00 BP 177/91 07/13/22 12:00 Pulse Ox 93 L 07/13/22 12:00 FiO2 60 07/13/22 12:00 Intake & Output 07/12/22 07/13/22 07/13/22 18:59 06:59 18:59 Intake Total 970 825 700 Output Total 690 500 300 Balance 280 325 400 Weight 81.3 kg 81.3 kg Intake: IV 100 825 150 0.9 KVO 100 825 150 Intake, IV Titration 600 550 Amount Dextrose 5% in Water 1, 600 500 000 ml @ 125 mls/hr IV . Q8H ALLIE Rx#:[id number] cefTRIAXone 2 gm In 50 Sodium Chloride 0.9% 50 ml @ 100 mls/hr IVPB Q24HR ALLIE Rx#:[id number] Tube Feeding 120 Other 150 Output: Urine 690 500 300 Other: Voiding Method Indwelling Catheter Indwelling Catheter Indwelling Catheter - Exam No acute distress, a bit agitated, currently on AIRVO. HEENT examination is grossly unremarkable. Neck supple. Full range of motion. No adenopathy thyromegaly or neck vein distention. Cardiovascular examination reveals regular rhythm rate. S1-S2 normal. No S3 or S4. No discernible murmur noted. Heart sounds are distant. Heart rate is 84 bpm. Lungs reveal bilateral coarse inspiratory expiratory rhonchi, and expiratory wheezes. No crackles. Saturations are 93% on AIRVO. Abdomen soft, without bowel sounds. No masses or tenderness. Extremities are intact. No cyanosis clubbing or edema. Skin is without rash or lesion. Neurologic examination is difficult to assess. - Labs CBC & Chem 7: 07/13/22 06:21 07/13/22 06:21 Labs: Abnormal Lab Results - Last 24 Hours (Table) 07/12/22 07/12/22 07/13/22 Range/Units 17:12 19:47 00:53 Neutrophils # (1.3-7.7) k/uL Lymphocytes # (1.0-4.8) k/uL Sodium (137-145) mmol/L Chloride (98-107) mmol/L Carbon Dioxide (22-30) mmol/L BUN (9-20) mg/dL Glucose (74-99) mg/dL POC Glucose (mg/dL) 178 H 172 H 182 H (70-110) mg/dL Hemoglobin A1c (0.0-6.0) % Calcium (8.4-10.2) mg/dL 07/13/22 07/13/22 07/13/22 Range/Units 06:11 06:21 06:21 Neutrophils # 9.0 H (1.3-7.7) k/uL Lymphocytes # 0.5 L (1.0-4.8) k/uL Sodium (137-145) mmol/L Chloride (98-107) mmol/L Carbon Dioxide (22-30) mmol/L BUN (9-20) mg/dL Glucose (74-99) mg/dL POC Glucose (mg/dL) 175 H (70-110) mg/dL Hemoglobin A1c 6.5 H (0.0-6.0) % Calcium (8.4-10.2) mg/dL 07/13/22 07/13/22 07/13/22 Range/Units 06:21 06:49 11:26 Neutrophils # (1.3-7.7) k/uL Lymphocytes # (1.0-4.8) k/uL Sodium 150 H (137-145) mmol/L Chloride 113 H (98-107) mmol/L Carbon Dioxide 35 H (22-30) mmol/L BUN 51 H (9-20) mg/dL Glucose 203 H (74-99) mg/dL POC Glucose (mg/dL) 165 H 237 H (70-110) mg/dL Hemoglobin A1c (0.0-6.0) % Calcium 7.7 L (8.4-10.2) mg/dL Microbiology - Last 24 Hours (Table) 07/06/22 16:57 Blood Culture - Final Blood No Growth after 144 hours 07/06/22 16:48 Blood Culture - Final Blood No Growth after 144 hours Assessment and Plan Assessment: Acute hypoxemic respiratory failure secondary to COPD exacerbation. Possible acute withdrawal, from either tobacco and/or alcohol. Acute tracheobronchitis. Supraventricular tachycardia/atrial fibrillation with RVR. Acute hypernatremia. History of laryngeal carcinoma, in remission, status post radiation treatment, diagnosed in 2017. Acute hypercapnic respiratory failure secondary to severe COPD. Plan: Plan dated 07/08/2022. The patient remains on dexmedetomidine. We will attempt to get her off of that drug. There are other medications that we can use, to substitute for that medication. In addition, the patient remains on appropriate medications for his COPD exacerbation including Solu-Medrol. Labs, x-rays, and medications are reviewed. The patient remains on Rocephin empirically. He also remains on Pulmicort 1 mg mixed with formoterol 20 g, twice a day. We will continue to follow make recommendations along the way. Prognosis is guarded. Plan dated 07/09/2022. Labs, x-rays, and medications are reviewed. The patient remains on dexmedetomidine. I've given the nurses some orders for Seroquel, and Haldol, to get the patient off of dexmedetomidine. The patient's getting saline at KVO. The patient's currently on BiPAP, 12/6, and 35%. We will continue to follow make recommendations along the way. The patient remains on Rocephin empirically. Culture data is negative. Chest x-ray is evaluated. Prognosis is certainly guarded. Plan dated 07/10/2022. We will add a clonidine patch, TTS #2, along with a nicotine patch, 21 mg a day. I will DC the Ativan. May be causing delirium. In addition, I will implore the nurse to use the Haldol, and Seroquel as prescribed. Labs, x-rays, and med ications are reviewed. Overall prognosis remains guarded. We will talk to the family about CODE STATUS. The patient appears quite agitated, and may be going through withdrawal. We will see if we can gain some additional history about the patient's habits, from the family. Plan dated 07/11/2022. Cardiology has seen the patient, and discontinue the heparin and IV Cardizem. The patient remains on amiodarone at 0.5 mg/m for his atrial fibrillation with RVR. The patient spent the night on BiPAP at 16/6 and 40%. Labs, x-rays, medications are reviewed. He's currently on high flow nasal O2, but we told respiratory to Perez use AIRVO if the patient could not tolerate the high flow nasal oxygen. We will continue to follow make recommendations along the way. Prognosis is guarded. His overall agitation level is improved on Haldol, clonidine patch, nicotine patch, and Seroquel. Plan dated 07/12/2022. The patient remains a full code. The patient is currently on BiPAP with settings of 16/6 and 40%. He remains on amiodarone for his atrial fibrillation. He is getting saline at 20 mL an hour. The patient has become hypernatremic. We will discontinue the saline in favor of dextrose. He did spend 4 hours on AIRVO yesterday. He is getting tube feeds in the form of vital AF. Goal is 55. He is at 40 ml 's per hour. Additional recommendations and suggestions are forthcoming. Prognosis is certainly guarded. The patient has medication for agitation and restlessness. Plan dated 07/13/2022. Labs, x-rays, medications are reviewed. Solu-Medrol dose is reduced. The patient did not wear BiPAP last night. 2 feedings are also on hold at the current time. Surgery is seen the patient for his distended abdomen. We will continue to follow make recommendations along the way. Prognosis is certainly guarded but I have to say, the patient's much more calm and less agitated and restless today. Time with Patient: Less than 30
[2022-07-13] MEDS ORDERED: hydrALAZINE HCL 50 MG TAB PO ONE (13:00)
--- NOTE | 2022-07-13 13:20 | P.PN ---
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 Patient tried breathing treatments at home without much relief. Patient was tachycardic on admission with heart rate in 160s and was found to be SVT patient was given Ellenson in the ER. Otherwise denied any complaints of chest pain. No nausea vomiting or abdominal pain. Denied any increased leg swelling. No fever no chills. No prior history of SVT. Chest x-ray showed COPD. No active cardiopulmonary disease. Mild pulmonary fibrotic changes. No significant change. CTA chest showed no evidence of PE. Emphysema and mild pulmonary fibrosis. No suspicious pulmonary mass. Laboratory data showed WBC 16.0 hemoglobin 16.0 and platelets 269 Sodium 139 potassium four-point 102 bicarb is 20 BUN 16 and creatinine 0.87 and lactic acid 2.7 Troponin x1 negative and proBNP is 378 TSH 0.49 6 Coronavirus and influenza AMB not detected. Urinalysis is negative for infection. 07/08/2022 Patient continues to be monitored in intensive care unit mostly on BiPAP support but able to be weaned to 3 to 4 L of oxygen via nasal cannula. He is unsure when he has had bowel movement and has limited to no bowel sounds for this reason abdominal xray has been performed showing mildly distended small bowel loops and some segments of colon as well. Consider generalized ileus and difficult to exclude the possibility of a distal colonic obstruction. White blood cell count today 6.1, sodium 144, potassium 4.6, BUN 40, creatinine 0.99, blood glucose 150, magnesium 2.4. Procalcitonin 0.55. Vitals today, patient is afebrile, heart rate 71, blood pressure 121/64, 95% oxygen saturation. Patient has been m aintained on dexmedetomidine for acute anxiety which is currently paused. Continues on IV Solu-Medrol, and bronchodilators. Patient is currently on IV cardizem gtt for tachycardia and will be transitioned to oral verapamil today, cardiology is following. 07/09/2022 Patient continues to be monitored in intensive care unit. White count elevated up to 12.4 today he has expiratory wheezing on exam changed from yesterday. Patient requiring bipap at 35% FiO2 currently. He did have low grade fever this morning 99 and is receiving acetaminophen as needed. chest xray today showing chronic emphysema and pulmonary fibrotic change. Procalcitonin level elevated at 0.55. IV ceftriaxone increased to 2 gram every 24 hours. Patient is continued on bronchodilators. Continues on IV solumedrol 60 mg q6h. Dexmedetomidine possibly being weaned off today, seroquel and haldol ordered with ativan as needed. P atient continues with significant abdominal distention and absent bowel sounds left lower quadrant. Did not receive lactulose yesterday. General surgery was consulted for further evaluation, currently placed NPO for possible ileus /bowel obstruction. He is hypertensive today with systolic in the 180s has been started on verapamil TID and also hydralazine 50 BID. Cardiology following. 07/10/2022 Patient evaluated today on BiPAP, fio2 has been increased to 40%, he is using accessory muscles to breath and appears quite aggitated. He is on combination of haldol, seroquel for this. Additionally, he was started on nicotine patch and clonidine patch. NG tube has been placed, patient has not had a BM. Abdominal Pelvis CT completed showing no CT evidence for small bowel obstruction. Patient also had follow up chest xray today showing COPD changes and no acute disease. Never the less he appears to have some respiratory distress requiring BiPAP. white count 11.7 today, sodium 149, BUN 47, creatinine 1.05, blood glucose 170s. Patient has been placed on amiodarone infusion and also heparin gtt as patient is unable to take oral medications currently. He continues on antibiotics. Continues on IV solumedrol. 07/11/2022 Patient is monitored in intensive care unit. Continues with NG tube. Tube feedings have been resumed with vital AF 1.2 with goal of 55 mls per hour. Currrently running at 20 mLs/hour. Patient has free water flush 30 mL every 4 hours, would like to increase free water and discontinue IV fluids. Sodium level today 148, potassium 4.1, chloride 110, BUN 51, creatinine 1.08. Blood glucose in the 240s and insulin has been increased. Patient is receiving lactulose, had fleet enema today. Has not had a BM this admission, bowel sounds in all 4 quadrants today. Amiodarone has been discontinued. Continues on oral verapamil. Heart rate is improving. Patient trialed on airvo 60/60 today. Chest xray showing no focal consolidation. 07/12/2022 Patient is evaluated in ICU, family at bedside. Continues on Airvo 60/60, reports non productive cough. Diffuse weakness. Abdomen distended seems worse than yesterday. Discussed with surgery. Tube feedings have been placed on hold and patient started on daily suppositories. Otherwise continues on empiric ceftriaxone. Chest xray showing COPD with possible underlying pulmonary vascular congestion. Sodium up to 150 today, nephrology consulted. Patient has been started on D5% water at 75 mls per hour. BUN 55 creatinine 1.22 today. Blood glucose 230s. Heart rate 120s today, blood pressure 130/91, remains afebrile. 07/13/2022 Patient continue in Intensive Care unit. Continues on Airvo 60/60. He reports breathing improved today less short of breath. Lung sounds have improved and increased aeration. Less congested. No BM yet, has been started on dulcolax suppository daily. Increased bowel sounds today and abdomen is less distended. Remains on IV ceftriaxone. White count normalized to 9.9. Sodium remains at 150, BUN 51, creatinine 1.21. Blood glucose 200s. hgb A1c found to be 6.5 consistent with diagnosis of diabetes mellitus type 2. Continues on levemir with sliding scale and scheduled novolog coverage. Remains afebrile, heart rate 87, blood pressure 177/91, oxygen saturation 95%. IV steroids have been decreased today. Continues on oral cardizem, oral verapamil. Continues on D5 water at 75 mls per hour. Review of Systems Constitutional: Reports fatigue, denies fever Cardio vascular: denied any chest pain, palpitations Gastrointestinal: denied any nausea, vomiting, diarrhea, no BM. Pulmonary: Reports shortness of breath, cough improving Neurologic denied any new focal deficits All inpatient medications were reviewed and appropriate changes in these medications as dictated in the interval history and assessment and plan. PHYSICAL EXAMINATION: Patient is lying in the bed comfortably, no acute distress, sedated On BiPAP. Fatigued. HEENT: Normocephalic. Neck is supple. Pupils reactive. Nostrils clear. Oral cavity is moist. Neck reveals no JVD, carotid bruits, or thyromegaly. CHEST EXAMINATION: Trachea is central. Symmetrical expansion. Bilateral diminished sounds with coarse scattered rhonchi, improving CARDIAC: Normal S1, S2 with no gallops. No murmurs irregular rhythm, rapid rate ABDOMEN: Increased bowel sounds Nontender. No organomegaly. No abdominal bruits. Distended. Tympanic. Extremities: reveal no edema. No clubbing or cyanosis Neurologic: diffuse generalized weakness Skin: No rash or skin lesions. Musculoskeletal: No joint swelling or deformity. Normal range of motion. Assessment and Plan Assessment Acute hypoxic respiratory failure on airvo 60/60 Worsening shortness of breath secondary to acute COPD exacerbation and tracheobronchitis Supraventricular tachycardia on admission. Atrial fibrillation with rapid rate Hypertension Hypernatremia Metabolic acidosis Diabetes Mellitus type 2 A1C 6.5. Ileus BPH Prior history of smoking History of throat cancer and vocal cord status post radiation 2016 DVT prophylaxis GI prophyalxis Full Code Plan: Patient is closely monitored in intensive care unit Patient will be continued Solu-Medrol, duo nebs and Symbicort. Currently on antibiotics in the form of ceftriaxone. Transitioned to oral verapamil, oral amiodarone, eliquis Continue on seroquel TID Continue with bowel rest and daily suppositories Insulin increased The impression and plan of care has been dictated by Maria De Jesus Mccoy, Nurse Practitioner as directed. Dr. Alison MD I have performed a history and physical examination and medical decision making of this patient, discussed the same with the dictator, and agree with the dictators assessment and plan as written, documented as a scribe. Based on total visit time, I have performed more than 50% of this visit. Objective - Vital Signs Vital signs: Vital Signs Temp 97.9 F 07/13/22 12:00 Pulse 87 07/13/22 13:00 Resp 27 H 07/13/22 13:00 BP 177/91 07/13/22 13:00 Pulse Ox 95 07/13/22 13:00 FiO2 60 07/13/22 13:00 Intake & Output 07/12/22 07/13/22 07/13/22 18:59 06:59 18:59 Intake Total 970 825 825 Output Total 690 500 375 Balance 280 325 450 Weight 81.3 kg 81.3 kg Intake: IV 100 825 150 0.9 KVO 100 825 150 Intake, IV Titration 600 675 Amount Dextrose 5% in Water 1, 600 625 000 ml @ 125 mls/hr IV . Q8H ALLIE Rx#:[id number] cefTRIAXone 2 gm In 50 Sodium Chloride 0.9% 50 ml @ 100 mls/hr IVPB Q24HR ALLIE Rx#:[id number] Tube Feeding 120 Other 150 Output: Urine 690 500 375 Other: Voiding Method Indwelling Catheter Indwelling Catheter Indwelling Catheter # Bowel Movements 1 - Labs CBC & Chem 7: 07/13/22 06:21 07/13/22 06:21 Labs: Abnormal Lab Results - Last 24 Hours (Table) 07/12/22 07/12/22 07/13/22 Range/Units 17:12 19:47 00:53 Neutrophils # (1.3-7.7) k/uL Lymphocytes # (1.0-4.8) k/uL Sodium (137-145) mmol/L Chloride (98-107) mmol/L Carbon Dioxide (22-30) mmol/L BUN (9-20) mg/dL Glucose (74-99) mg/dL POC Glucose (mg/dL) 178 H 172 H 182 H (70-110) mg/dL Hemoglobin A1c (0.0-6.0) % Calcium (8.4-10.2) mg/dL 07/13/22 07/13/22 07/13/22 Range/Units 06:11 06:21 06:21 Neutrophils # 9.0 H (1.3-7.7) k/uL Lymphocytes # 0.5 L (1.0-4.8) k/uL Sodium (137-145) mmol/L Chloride (98-107) mmol/L Carbon Dioxide (22-30) mmol/L BUN (9-20) mg/dL Glucose (74-99) mg/dL POC Glucose (mg/dL) 175 H (70-110) mg/dL Hemoglobin A1c 6.5 H (0.0-6.0) % Calcium (8.4-10.2) mg/dL 07/13/22 07/13/22 07/13/22 Range/Units 06:21 06:49 11:26 Neutrophils # (1.3-7.7) k/uL Lymphocytes # (1.0-4.8) k/uL Sodium 150 H (137-145) mmol/L Chloride 113 H (98-107) mmol/L Carbon Dioxide 35 H (22-30) mmol/L BUN 51 H (9-20) mg/dL Glucose 203 H (74-99) mg/dL POC Glucose (mg/dL) 165 H 237 H (70-110) mg/dL Hemoglobin A1c (0.0-6.0) % Calcium 7.7 L (8.4-10.2) mg/dL Microbiology - Last 24 Hours (Table) 07/06/22 16:57 Blood Culture - Final Blood No Growth after 144 hours 07/06/22 16:48 Blood Culture - Final Blood No Growth after 144 hours Assessment and Plan Time with Patient: Less than 30
[2022-07-13] MEDS: methylPREDNISolone SOD SUCCI 40 MG/ML 1 ML VIAL IV SCH ×2 (15:38→20:37)
[2022-07-13 16:37] LABS: Glucose,Whole Blood 175 mg/dL (70-110)
[2022-07-13 20:02] LABS: Glucose,Whole Blood 184 mg/dL (70-110)
[2022-07-13] MEDS: ATORVASTATIN 10 MG TAB PO SCH (20:38)
--- NOTE | 2022-07-13 21:54 | PN ---
PROGRESS NOTE HISTORY OF PRESENT ILLNESS: This is a 66-year-old gentleman who is admitted to ICU with multiple medical problems that we are following because of atrial fibrillation. Yesterday, he was switched to oral amiodarone and he is also on verapamil. PHYSICAL EXAMINATION: VITAL SIGNS: At the time of my evaluation this morning, heart rate is well controlled at 87 beats per minute, respiratory rate is 27, blood pressure is poorly controlled at 177/90. CHEST: Reveals diminished air entry with occasional rhonchi. HEART: Reveals first and second heart sounds. No gallop. Irregular rhythm. EXTREMITIES: Reveal mild edema. LABORATORY DATA: Labs showed a hemoglobin of 14.7, platelet count is 205, potassium is 3.9, creatinine is 1.2. MEDICATIONS: The patient is currently on, 1. Amiodarone. 2. Eliquis. 3. Lipitor. 4. Catapres patch. 5. Hydralazine 50 b.i.d. 6. Isoptin 80 t.i.d. ASSESSMENT: 1. Persistent atrial fibrillation with controlled ventricular rate. 2. Uncontrolled hypertension. PLAN: I will increase the dose of hydralazine to 100 mg b.i.d. for better blood pressure control. MMODL / IJN: [id number] /
[2022-07-14 00:45] LABS: Glucose,Whole Blood 223 mg/dL (70-110)
[2022-07-14] MEDS: INSULIN ASPART (NovoLOG) 100 UNIT/ML VIAL SQ SCH ×11 (00:48→23:53)
[2022-07-14] MEDS: DEXTROSE 5% IN WATER 1,000 ML IV SCH (01:00)
[2022-07-14] MEDS: methylPREDNISolone SOD SUCCI 40 MG/ML 1 ML VIAL IV SCH ×4 (03:23→21:17)
[2022-07-14 06:17] LABS: Basophils % (A) 0 %; Eosinophils % (A) 0 %; HCT 45.7 % (39.0-53.0); HGB 14.9 gm/dL (13.0-17.5); Lymphocytes # (A) 0.5 k/uL (1.0-4.8); Lymphocytes % (A) 5 %; MCH 30.1 pg (25.0-35.0); MCHC 32.6 g/dL (31.0-37.0); MCV 92.3 fL (80.0-100.0); Mean Platelet Volume 7.7; Monocytes # (A) 0.3 k/uL (0-1.0); Monocytes % (A) 3 %; Neutrophils # (A) 9.4 k/uL (1.3-7.7); Neutrophils % (A) 91 %; Platelet Count 184 k/uL (150-450); RBC 4.94 m/uL (4.30-5.90); RDW 12.6 % (11.5-15.5); WBC 10.4 k/uL (3.8-10.6)
[2022-07-14 06:36] LABS: Calcium 7.1 mg/dL (8.4-10.2); Potassium 4.5 mmol/L (3.5-5.1)
[2022-07-14 07:07] LABS: Glucose,Whole Blood 166 mg/dL (70-110)
[2022-07-14] MEDS: INSULIN DETEMIR (LEVEMIR) 100 UNIT/ML SYR SQ SCH ×2 (07:10→21:17)
[2022-07-14] MEDS: IPRATROPIUM-ALBUTEROL 3 ML NEB INHALATION SCH ×4 (07:15→20:30)
[2022-07-14] MEDS: FORMOTEROL FUMARATE 20 MCG/2 ML NEBU INHALATION SCH ×2 (07:15→20:29)
[2022-07-14] MEDS: BUDESONIDE 1 MG/2 ML NEBU INHALATION SCH ×2 (07:15→20:30)
[2022-07-14] MEDS: bisacodyL 10 MG SUPP RECTAL SCH (08:17)
[2022-07-14] MEDS: AMIODARONE 200 MG TAB PO SCH ×2 (08:17→21:17)
[2022-07-14] MEDS: APIXABAN 5 MG TAB PO SCH ×2 (08:17→21:16)
[2022-07-14] MEDS: hydrALAZINE HCL 50 MG TAB PO SCH ×2 (08:17→21:16)
[2022-07-14] MEDS: QUEtiapine 50 MG TAB PO SCH ×3 (08:17→21:16)
[2022-07-14] MEDS: VERAPAMIL 80 MG TAB PO SCH ×3 (08:17→21:16)
--- NOTE | 2022-07-14 08:28 | XR ---
EXAMINATION TYPE: XR chest 1V portable DATE OF EXAM: 07/14/2022 Comparison: 07/13/2022 Clinical History: 66-year-old male COPD exacerbation Findings: Heart normal size. NG tube courses below the diaphragm. The distal aspect is beyond the field of view . Hyperinflation. Mild patchy bibasilar opacities have slightly increased from prior exam. No sizable pleural effusion. Impression: COPD and slight interval worsening in patchy bibasilar atelectasis versus infiltrates.
--- NOTE | 2022-07-14 08:51 | P.PN ---
Subjective Patient is seen in follow-up for hypernatremia. Sodium level normal today. Receiving D5W. Remains on arivo. Has NG tube for ileus. Vital signs are stable. General: Awake. No acute distress. HEENT: NG tube noted. On Airvo. LUNGS: Breath sounds decreased. HEART: Rate and Rhythm are regular. ABDOMEN: Mild distention. EXTREMITITES: No edema. Objective - Vital Signs Vital signs: Vital Signs Temp 98 F 07/14/22 00:00 Pulse 64 07/14/22 07:39 Resp 18 07/14/22 07:00 BP 159/86 07/14/22 07:00 Pulse Ox 92 L 07/14/22 07:14 FiO2 58 07/14/22 07:14 Intake & Output 07/13/22 07/14/22 07/14/22 18:59 06:59 18:59 Intake Total 1400 900 75 Output Total 590 715 50 Balance 810 185 25 Weight 81.3 kg 85.5 kg Intake: IV 725 900 75 0.9 KVO 150 Dextrose 5% in Water 1, 575 900 75 000 ml @ 75 mls/hr IV . [id number] [facility] Rx#:[id number] Intake, IV Titration 675 Amount Dextrose 5% in Water 1, 625 000 ml @ 75 mls/hr IV . [id number] [facility]IE Rx#:[id number] cefTRIAXone 2 gm In 50 Sodium Chloride 0.9% 50 ml @ 100 mls/hr IVPB Q24HR [facility]IE Rx#:[id number] Output: Urine 590 715 50 Other: Voiding Method Indwelling Catheter Indwelling Catheter # Bowel Movements 1 - Labs CBC & Chem 7: 07/14/22 05:36 07/14/22 05:36 Labs: Abnormal Lab Results - Last 24 Hours (Table) 07/13/22 07/13/22 07/13/22 Range/Units 06:21 11:26 16:36 Neutrophils # (1.3-7.7) k/uL Lymphocytes # (1.0-4.8) k/uL Carbon Dioxide (22-30) mmol/L BUN (9-20) mg/dL Glucose (74-99) mg/dL POC Glucose (mg/dL) 237 H 175 H (70-110) mg/dL Hemoglobin A1c 6.5 H (0.0-6.0) % Calcium (8.4-10.2) mg/dL 07/13/22 07/14/22 07/14/22 Range/Units 20:00 00:43 05:36 Neutrophils # 9.4 H (1.3-7.7) k/uL Lymphocytes # 0.5 L (1.0-4.8) k/uL Carbon Dioxide (22-30) mmol/L BUN (9-20) mg/dL Glucose (74-99) mg/dL POC Glucose (mg/dL) 184 H 223 H (70-110) mg/dL Hemoglobin A1c (0.0-6.0) % Calcium (8.4-10.2) mg/dL 07/14/22 07/14/22 Range/Units 05:36 07:05 Neutrophils # (1.3-7.7) k/uL Lymphocytes # (1.0-4.8) k/uL Carbon Dioxide 36 H (22-30) mmol/L BUN 48 H (9-20) mg/dL Glucose 165 H (74-99) mg/dL POC Glucose (mg/dL) 166 H (70-110) mg/dL Hemoglobin A1c (0.0-6.0) % Calcium 7.1 L (8.4-10.2) mg/dL Assessment and Plan Plan: Assessment: 1. Mild acute kidney injury secondary to hemodynamic ATN. Improved. Creatinine 1.08 today. No hydronephrosis noted on CAT scan. 2. Hypernatremia from lack of oral water intake. Improved. 3. Ileus. Surgery following. Currently has NG tube. 4. SVT. Seen by cardiology. Heart rate currently stable. 5. Diabetes mellitus. Plan: Change IV fluids to half-normal saline at 50 mL an hour. Repeat labs in the morning. Continue to monitor renal function and urine output. Avoid nephrotoxins.
--- NOTE | 2022-07-14 09:37 | P.PN ---
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 Patient tried breathing treatments at home without much relief. Patient was tachycardic on admission with heart rate in 160s and was found to be SVT patient was given Ellenson in the ER. Otherwise denied any complaints of chest pain. No nausea vomiting or abdominal pain. Denied any increased leg swelling. No fever no chills. No prior history of SVT. Chest x-ray showed COPD. No active cardiopulmonary disease. Mild pulmonary fibrotic changes. No significant change. CTA chest showed no evidence of PE. Emphysema and mild pulmonary fibrosis. No suspicious pulmonary mass. Laboratory data showed WBC 16.0 hemoglobin 16.0 and platelets 269 Sodium 139 potassium four-point 102 bicarb is 20 BUN 16 and creatinine 0.87 and lactic acid 2.7 Troponin x1 negative and proBNP is 378 TSH 0.49 6 Coronavirus and influenza AMB not detected. Urinalysis is negative for infection. 07/08/2022 Patient continues to be monitored in intensive care unit mostly on BiPAP support but able to be weaned to 3 to 4 L of oxygen via nasal cannula. He is unsure when he has had bowel movement and has limited to no bowel sounds for this reason abdominal xray has been performed showing mildly distended small bowel loops and some segments of colon as well. Consider generalized ileus and difficult to exclude the possibility of a distal colonic obstruction. White blood cell count today 6.1, sodium 144, potassium 4.6, BUN 40, creatinine 0.99, blood glucose 150, magnesium 2.4. Procalcitonin 0.55. Vitals today, patient is afebrile, heart rate 71, blood pressure 121/64, 95% oxygen saturation. Patient has been m aintained on dexmedetomidine for acute anxiety which is currently paused. Continues on IV Solu-Medrol, and bronchodilators. Patient is currently on IV cardizem gtt for tachycardia and will be transitioned to oral verapamil today, cardiology is following. 07/09/2022 Patient continues to be monitored in intensive care unit. White count elevated up to 12.4 today he has expiratory wheezing on exam changed from yesterday. Patient requiring bipap at 35% FiO2 currently. He did have low grade fever this morning 99 and is receiving acetaminophen as needed. chest xray today showing chronic emphysema and pulmonary fibrotic change. Procalcitonin level elevated at 0.55. IV ceftriaxone increased to 2 gram every 24 hours. Patient is continued on bronchodilators. Continues on IV solumedrol 60 mg q6h. Dexmedetomidine possibly being weaned off today, seroquel and haldol ordered with ativan as needed. P atient continues with significant abdominal distention and absent bowel sounds left lower quadrant. Did not receive lactulose yesterday. General surgery was consulted for further evaluation, currently placed NPO for possible ileus /bowel obstruction. He is hypertensive today with systolic in the 180s has been started on verapamil TID and also hydralazine 50 BID. Cardiology following. 07/10/2022 Patient evaluated today on BiPAP, fio2 has been increased to 40%, he is using accessory muscles to breath and appears quite aggitated. He is on combination of haldol, seroquel for this. Additionally, he was started on nicotine patch and clonidine patch. NG tube has been placed, patient has not had a BM. Abdominal Pelvis CT completed showing no CT evidence for small bowel obstruction. Patient also had follow up chest xray today showing COPD changes and no acute disease. Never the less he appears to have some respiratory distress requiring BiPAP. white count 11.7 today, sodium 149, BUN 47, creatinine 1.05, blood glucose 170s. Patient has been placed on amiodarone infusion and also heparin gtt as patient is unable to take oral medications currently. He continues on antibiotics. Continues on IV solumedrol. 07/11/2022 Patient is monitored in intensive care unit. Continues with NG tube. Tube feedings have been resumed with vital AF 1.2 with goal of 55 mls per hour. Currrently running at 20 mLs/hour. Patient has free water flush 30 mL every 4 hours, would like to increase free water and discontinue IV fluids. Sodium level today 148, potassium 4.1, chloride 110, BUN 51, creatinine 1.08. Blood glucose in the 240s and insulin has been increased. Patient is receiving lactulose, had fleet enema today. Has not had a BM this admission, bowel sounds in all 4 quadrants today. Amiodarone has been discontinued. Continues on oral verapamil. Heart rate is improving. Patient trialed on airvo 60/60 today. Chest xray showing no focal consolidation. 07/12/2022 Patient is evaluated in ICU, family at bedside. Continues on Airvo 60/60, reports non productive cough. Diffuse weakness. Abdomen distended seems worse than yesterday. Discussed with surgery. Tube feedings have been placed on hold and patient started on daily suppositories. Otherwise continues on empiric ceftriaxone. Chest xray showing COPD with possible underlying pulmonary vascular congestion. Sodium up to 150 today, nephrology consulted. Patient has been started on D5% water at 75 mls per hour. BUN 55 creatinine 1.22 today. Blood glucose 230s. Heart rate 120s today, blood pressure 130/91, remains afebrile. 07/13/2022 Patient continue in Intensive Care unit. Continues on Airvo 60/60. He reports breathing improved today less short of breath. Lung sounds have improved and increased aeration. Less congested. No BM yet, has been started on dulcolax suppository daily. Increased bowel sounds today and abdomen is less distended. Remains on IV ceftriaxone. White count normalized to 9.9. Sodium remains at 150, BUN 51, creatinine 1.21. Blood glucose 200s. hgb A1c found to be 6.5 consistent with diagnosis of diabetes mellitus type 2. Continues on levemir with sliding scale and scheduled novolog coverage. Remains afebrile, heart rate 87, blood pressure 177/91, oxygen saturation 95%. IV steroids have been decreased today. Continues on oral cardizem, oral verapamil. Continues on D5 water at 75 mls per hour. 07/14/2022 Patient continues to be monitored closely in intensive care unit. He continues on Airvo 45/60, has tolerated weaning and continues to report improvement in work of breathing. No wheezing noted on exam today has some coarse scattered ronchi. NG tube remains in place, he did have BM. Will discuss with surgery if NG tube can be discontinued. Will add nystatin swish today which can be applied manually versus swishing. Patient remains diffusely weak has been on bedrest. No breakdown noted on skin. Continues on oral amiodarone, verapamil, anticoagulated with eliquis. Patient has been maintained on empiric antibiotic coverage with IV ceftriaxone, tomorrow will be day 5. white count has normalized consider discontinuing antibiotics tomorrow. Patient is maintaining sinus rhythm today heart rate 80s, blood pressure 159/78, 93% oxygen saturation, has remained afebrile. Labs today are improving, white count remains within normal limits at 10.4, sodium 142, potassium 4.5, chloride normalized to 104, BUN 48, creatinine 1.08. Blood glucose 160s to 200s. IV fluids have been changed to D5 1/2 NS at 50. Repeat labs tomorrow. Multiple consultations following. PT/OT has been consulted. Review of Systems Constitutional: Reports fatigue, denies fever Cardio vascular: denied any chest pain, palpitations Gastrointestinal: denied any nausea, vomiting, diarrhea, had BM today. Pulmonary: Reports shortness of breath, cough improving Neurologic denied any new focal deficits All inpatient medications were reviewed and appropriate changes in these medications as dictated in the interval history and assessment and plan. PHYSICAL EXAMINATION: Patient is lying in the bed comfortably, no acute distress, currently on airvo more awake and alert. HEENT: Normocephalic. Neck is supple. Pupils reactive. Nostrils clear. Oral cavity is moist. Neck reveals no JVD, carotid bruits, or thyromegaly. CHEST EXAMINATION: Trachea is central. Symmetrical expansion. Bilateral diminished sounds with coarse scattered rhonchi, improving CARDIAC: Normal S1, S2 with no gallops. No murmurs, regular rate and rhythm. ABDOMEN: Increased bowel sounds Nontender. No organomegaly. No abdominal bruits. Distended. Tympanic. Extremities: reveal no edema. No clubbing or cyanosis Neurologic: diffuse generalized weakness Skin: No rash or skin lesions. Musculoskeletal: No joint swelling or deformity. Normal range of motion. Assessment and Plan Assessment Acute hypoxic respiratory failure on airvo 45/60 Worsening shortness of breath secondary to acute COPD exacerbation and tracheobronchitis Supraventricular tachycardia on admission. Atrial fibrillation with rapid rate converted to normal sinus rhythm Hypertension Hypernatremia, resolved Metabolic acidosis Diabetes Mellitus type 2 A1C 6.5. Ileus, resolving BPH Prior history of smoking History of throat cancer and vocal cord status post radiation 2016 DVT prophylaxis GI prophyalxis Full Code Plan: Patient is closely monitored in intensive care unit Patient will be continued Solu-Medrol, duo nebs and Symbicort. Currently on antibiotics in the form of ceftriaxone, tomorrow is day 5. Transitioned to oral verapamil, oral amiodarone, eliquis Continue on seroquel TID Consider NG tube removal if cleared with surgery Physical therapy has been consulted The impression and plan of care has been dictated by Maria De Jesus Mccoy, Nurse Practitioner as directed. Dr. Alison MD I have performed a history and physical examination and medical decision making of this patient, discussed the same with the dictator, and agree with the dic tators assessment and plan as written, documented as a scribe. Based on total visit time, I have performed more than 50% of this visit. Objective - Vital Signs Vital signs: Vital Signs Temp 98.0 F 07/14/22 08:00 Pulse 85 07/14/22 09:00 Resp 20 07/14/22 09:00 BP 159/78 07/14/22 09:00 Pulse Ox 90 L 07/14/22 09:00 FiO2 60 07/14/22 08:00 Intake & Output 07/13/22 07/14/22 07/14/22 18:59 06:59 18:59 Intake Total 1400 900 175 Output Total 590 715 150 Balance 810 185 25 Weight 81.3 kg 85.5 kg Intake: IV 725 900 175 0.9 KVO 150 Dextrose 5% in Water 1, 575 900 175 000 ml @ 75 mls/hr IV . [id number] [facility] Rx#:[id number] Intake, IV Titration 675 Amount Dextrose 5% in Water 1, 625 000 ml @ 75 mls/hr IV . [id number] [facility] Rx#:[id number] cefTRIAXone 2 gm In 50 Sodium Chloride 0.9% 50 ml @ 100 mls/hr IVPB Q24HR [facility] Rx#:[id number] Output: Urine 590 715 150 Other: Voiding Method Indwelling Catheter Indwelling Catheter Indwelling Catheter # Bowel Movements 1 - Labs CBC & Chem 7: 07/14/22 05:36 07/14/22 05:36 Labs: Abnormal Lab Results - Last 24 Hours (Table) 07/13/22 07/13/22 07/13/22 Range/Units 06:21 11:26 16:36 Neutrophils # (1.3-7.7) k/uL Lymphocytes # (1.0-4.8) k/uL Carbon Dioxide (22-30) mmol/L BUN (9-20) mg/dL Glucose (74-99) mg/dL POC Glucose (mg/dL) 237 H 175 H (70-110) mg/dL Hemoglobin A1c 6.5 H (0.0-6.0) % Calcium (8.4-10.2) mg/dL 07/13/22 07/14/22 07/14/22 Range/Units 20:00 00:43 05:36 Neutrophils # 9.4 H (1.3-7.7) k/uL Lymphocytes # 0.5 L (1.0-4.8) k/uL Carbon Dioxide (22-30) mmol/L BUN (9-20) mg/dL Glucose (74-99) mg/dL POC Glucose (mg/dL) 184 H 223 H (70-110) mg/dL Hemoglobin A1c (0.0-6.0) % Calcium (8.4-10.2) mg/dL 07/14/22 07/14/22 Range/Units 05:36 07:05 Neutrophils # (1.3-7.7) k/uL Lymphocytes # (1.0-4.8) k/uL Carbon Dioxide 36 H (22-30) mmol/L BUN 48 H (9-20) mg/dL Glucose 165 H (74-99) mg/dL POC Glucose (mg/dL) 166 H (70-110) mg/dL Hemoglobin A1c (0.0-6.0) % Calcium 7.1 L (8.4-10.2) mg/dL Assessment and Plan Time with Patient: Less than 30
[2022-07-14] MEDS: FAMOTIDINE 20 MG/2 ML VIAL IV SCH ×2 (09:51→21:16)
[2022-07-14] MEDS: DEXTROSE 5%-0.45% NACL 1,000 ML IV SCH (09:51)
[2022-07-14] MEDS: NYSTATIN 100,000 UNIT/ML SUSP 500,000 UNIT/5 ML CUP PO SCH ×4 (10:47→21:17)
[2022-07-14 11:25] LABS: Glucose,Whole Blood 150 mg/dL (70-110)
--- NOTE | 2022-07-14 12:09 | P.PN ---
Progress Note - Text Progress Note Date: 07/14/22 Patient has had some bowel movements. On exam vital signs appear stable. Abdomen is less distended. Patient's nasogastric tube was removed. He can start on clear liquid diet
--- NOTE | 2022-07-14 12:12 | P.PN ---
Subjective Progress Note Date: 07/14/22 Principal diagnosis: SVT, COPD exacerbation. This is a 66-year-old white male with history of moderate severe COPD, benign prostatic hypertrophy, history of laryngeal cancer diagnosed back in 2017, patient underwent radiation treatment with full recovery. Patient presented to the ER yesterday, complaining mostly of cough wheezing shortness of breath, and upon his initial evaluation in the ER, patient was noted to be tachycardic and noted to be in supraventricular tachycardia. His heart rate was 160. Patient was hypertensive. And he was noted to have increased work of breathing. Patient received a adenosine, patient was placed on Cardizem drip at 15 mg per hour. Patient was admitted, and this consult was initiated. His COPD status was quite severe apparently and the patient was getting updraft treatment almost every 2 hours. Patient was also placed on BiPAP because he was noted to be quite dyspneic and in respiratory distress on nasal cannula. ABG on BiPAP showed a pO2 of 107 pCO2 51 pH of 7.31, and I got him down from 35% to 50%. I also arranged for the patient to transfer to the ICU as he was noted to seen to be quite dyspneic and his dyspnea was a bit of this proportional to his physical examination. CT angiogram of the chest done on his admission showed no evidence of pulmonary embolism, there was evidence of emphysema and mild pulmonary fibro sis. Progress note dated 07/08/2022. This is a 66-year-old male who was admitted to the hospital, on July 06, for SVT, and COPD exacerbation. He is seen today to 58. Currently, he is on 4 L of oxygen. He's been on BiPAP, with settings of 12/6 and 35%. He remains on dexmedetomidine at 0.5 mcg/kg/h, and Cardizem drip at 5 mg an hour, as well as saline at 10 mL an hour. The patient appears to be doing a bit better, and the goal today is to get him off the dexmedetomidine. White count 6.1, hemoglobin 13.2, hematocrit 39.5, and platelet count 244,000. Sodium 144, potassium 4.6, chlorides 112, CO2 24, BUN 40, creatinine 0.99. Chest x-ray shows some cardiomegaly, and changes of COPD. There is residual but improving infiltrate at the right midlung. Progress note dated 07/09/2022. 66-year-old male, again seen in room 258. The patient's on BiPAP, with settings of 12/6 and 35%. The patient's getting saline at KVO, and dexmedetomidine at 0.4 mcg/kg/h. We will attempted DC the dexmedetomidine, but given the patient's Seroquel, 50 mg 3 times a day, as well as when necessary Haldol. In addition, I told the nurse that she could use a small amount of Ativan when necessary. Whi te count 12.4, implement 13.9, hematocrit 41.6, and platelet count is normal. Sodium 145, potassium 4.2, chlorides 109, CO2 27, with a BUN of 41 and a creatinine of 1.01. Chest x-ray shows chronic emphysematous changes. Progress note dated 07/10/2022. 66-year-old male, seen again in room 258. The patient remains on BiPAP, with settings of 16/6 and 40%. Blood gases done this morning show pO2 69, pCO2 56, and a pH of 7.36. I was called by the nurses morning because the patient was very agitated. The patient apparently got Ativan early this morning. The patient apparently did not get his Seroquel for his Haldol. Hence, I stopped the Ativan altogether because it may be causing delirium. In addition, we going to use the Haldol 4 - 8 mg, every 4 hours as needed, and Seroquel 50 mg 3 times a day. White count 11.7, hemoglobin 14.6, hematocrit 42.9, and platelet count 242,000. Sodium 149, potassium 4.8, chlorides 110, CO2 31, BUN 47, and creatinine 1.05. Because the patient may be exhibiting withdrawal, we will place a clonidine patch on him, TTS #2, and also apply a nicotine patch 21 mg a day. Progress note dated 07/11/2022. 66-year-old male seen in room 258. This morning, the patient was converted from BiPAP, 2:15 liters high flow O2. He may need AIRVO. The patient still has an NG tube in place. He is getting saline at 20 mL an hour. At nighttime, he was on BiPAP, with settings of 16/6 and 40%. The patient's heparin and Cardizem will be discontinued. He remains on amiodarone at 0.5 mg/m. Sodium 148, potassium 4.1, chlorides 110, CO2 32, BUN 51, creatinine 1.08. Albumin is 3.2. PTT is 56.5. No chest x-ray today. Blood cultures have been negative. Progress note dated 07/12/2022. 66-year-old male, seen in room 258. The patient's currently on BiPAP at 16/6 and 40%. He remains on amiodarone, 0.5 mg/m, and saline at 20 mL an hour. Yesterday, he spent 4 hours on AIRVO. He is getting vital AF at 40 mL an hour, with a goal of 55. His overall condition remains very critical. Today's labs include a white count 8.5, hemoglobin 13.6, hematocrit 42.2, and platelet count 216,000. Sodium 150, potassium 4.1, chlorides 112, CO2 33, BUN 55, and creati nine 1.22. Blood cultures are negative. Chest x-rays consistent with changes of COPD. Progress note dated 07/13/2022. 66-year-old male seen in room 258. The patient is currently on AIRVO, at 60 L /m, with an FiO2 of 60%. He is getting dextrose, at 125 mL an hour. He did not use BiPAP last night. Tube feedings on hold, as per surgery. Solu-Medrol is reduced from 60 mg, to 40 mg, every 6 hours. He does appear much more awake and alert today. He is not so agitated and restless. White count 9.9, hemoglobin 14.7, hematocrit 46, and platelet count 205,000. Sodium 150, potassium 3.9, chlorides 113, CO2 35, BUN 51, creatinine 1.21. Microbiologic data is negative. Chest x-ray continues to show mostly clear lung valle, with mild interstitial changes. Progress note dated 07/14/2022. The patient is seen in room 258. He is currently on AIRVO, with settings of 45 L/m and 60% FiO2. He's getting D5.45 at 50 mL an hour. He has an NG tube in place. Tube feedings on hold. Clinically, he looks much better. White count 10.4, hemoglobin 14.9, hematocrit 45.7, and platelet count of 284,000. Sodium 142, potassium 4.5, chlorides 104, CO2 36, BUN 48, and creatinine 1.08. Calcium is 7.1. Chest x-ray shows changes of COPD and some patchy infiltrates or atelectasis. Objective - Vital Signs Vital signs: Vital Signs Temp 98.0 F 07/14/22 08:00 Pulse 71 07/14/22 11:00 Resp 19 07/14/22 11:00 BP 146/74 07/14/22 11:00 Pulse Ox 90 L 07/14/22 11:00 FiO2 60 07/14/22 08:00 Intake & Output 07/13/22 07/14/22 07/14/22 18:59 06:59 18:59 Intake Total 1400 900 275 Output Total 590 715 260 Balance 810 185 15 Weight 81.3 kg 85.5 kg Intake: IV 725 900 275 0.9 KVO 150 Dextrose 5% in Water 1, 575 900 275 000 ml @ 75 mls/hr IV . [id number] [facility] Rx#:[id number] Intake, IV Titration 675 Amount Dextrose 5% in Water 1, 625 000 ml @ 75 mls/hr IV . [id number] [facility]IE Rx#:[id number] cefTRIAXone 2 gm In 50 Sodium Chloride 0.9% 50 ml @ 100 mls/hr IVPB Q24HR [facility] Rx#:[id number] Output: Urine 590 715 260 Other: Voiding Method Indwelling Catheter Indwelling Catheter Indwelling Catheter # Bowel Movements 1 - Exam No acute distress, much more calm today, currently on AIRVO. HEENT examination is grossly unremarkable. Neck supple. Full range of motion. No adenopathy thyromegaly or neck vein distention. Cardiovascular examination reveals regular rhythm rate. S1-S2 normal. No S3 or S4. No discernible murmur noted. Heart sounds are distant. Heart rate is 71 bpm. Lungs reveal bilateral coarse inspiratory expiratory rhonchi, and expiratory wheezes. No crackles. Saturations are 90 % on AIRVO. Abdomen soft, without bowel sounds. No masses or tenderness. Extremities are intact. No cyanosis clubbing or edema. Skin is without rash or lesion. Neurologic examination is difficult to assess. - Labs CBC & Chem 7: 07/14/22 05:36 07/14/22 05:36 Labs: Abnormal Lab Results - Last 24 Hours (Table) 07/13/22 07/13/22 07/14/22 Range/Units 16:36 20:00 00:43 Neutrophils # (1.3-7.7) k/uL Lymphocytes # (1.0-4.8) k/uL Carbon Dioxide (22-30) mmol/L BUN (9-20) mg/dL Glucose (74-99) mg/dL POC Glucose (mg/dL) 175 H 184 H 223 H (70-110) mg/dL Calcium (8.4-10.2) mg/dL 07/14/22 07/14/22 07/14/22 Range/Units 05:36 05:36 07:05 Neutrophils # 9.4 H (1.3-7.7) k/uL Lymphocytes # 0.5 L (1.0-4.8) k/uL Carbon Dioxide 36 H (22-30) mmol/L BUN 48 H (9-20) mg/dL Glucose 165 H (74-99) mg/dL POC Glucose (mg/dL) 166 H (70-110) mg/dL Calcium 7.1 L (8.4-10.2) mg/dL 07/14/22 Range/Units 11:23 Neutrophils # (1.3-7.7) k/uL Lymphocytes # (1.0-4.8) k/uL Carbon Dioxide (22-30) mmol/L BUN (9-20) mg/dL Glucose (74-99) mg/dL POC Glucose (mg/dL) 150 H (70-110) mg/dL Calcium (8.4-10.2) mg/dL Assessment and Plan Assessment: Acute hypoxemic respiratory failure secondary to COPD exacerbation. Possible acute withdrawal, from either tobacco and/or alcohol. Acute tracheobronchitis. Supraventricular tachycardia/atrial fibrillation with RVR. Acute hypernatremia. History of laryngeal carcinoma, in remission, status post radiation treatment, diagnosed in 2017. Acute hypercapnic respiratory failure secondary to severe COPD. Plan: Plan dated 07/08/2022. The patient remains on dexmedetomidine. We will attempt to get her off of that drug. There are other medications that we can use, to substitute for that medication. In addition, the patient remains on appropriate medications for his COPD exacerbation including Solu-Medrol. Labs, x-rays, and medications are reviewed. The patient remains on Rocephin empirically. He also remains on Pulmicort 1 mg mixed with formoterol 20 g, twice a day. We will continue to follow make recommendations along the way. Prognosis is guarded. Plan dated 07/09/2022. Labs, x-rays, and medications are reviewed. The patient remains on dexmedetomidine. I've given the nurses some orders for Seroquel, and Haldol, to get the patient off of dexmedetomidine. The patient's getting saline at KVO. The patient's currently on BiPAP, 12/6, and 35%. We will continue to follow make recommendations along the way. The patient remains on Rocephin empirically. Culture data is negative. Chest x-ray is evaluated. Prognosis is certainly guarded. Plan dated 07/10/2022. We will add a clonidine patch, TTS #2, along with a nicotine patch, 21 mg a day. I will DC the Ativan. May be causing delirium. In addition, I will implore the nurse to use the Haldol, and Seroquel as prescribed. Labs, x-rays, and medications are reviewed. Overall prognosis remains guarded. We will talk to the family about CODE STATUS. The patient appears quite agitated, and may be going through withdrawal. We will see if we can gain some additional history about the patient's habits, from the family. Plan dated 07/11/2022. Cardiology has seen the patient, and discontinue the heparin and IV Cardizem. The patient remains on amiodarone at 0.5 mg/m for his atrial fibrillation with RVR. The patient spent the night on BiPAP at 16/6 and 40%. Labs, x-rays, medications are reviewed. He's currently on high flow nasal O2, but we told respiratory to Perez use AIRVO if the patient could not tolerate the high flow nasal oxygen. We will continue to follow make recommendations along the way. Prognosis is guarded. His overall agitation level is improved on Haldol, clonidine patch, nicotine patch, and Seroquel. Plan dated 07/12/2022. The patient remains a full code. The patient is currently on BiPAP with settings of 16/6 and 40%. He remains on amiodarone for his atrial fibrillation. He is getting saline at 20 mL an hour. The patient has become hypernatremic. We will discontinue the saline in favor of dextrose. He did spend 4 hours on AIRVO yesterday. He is getting tube feeds in the form of vital AF. Goal is 55. He is at 40 ml 's per hour. Additional recommendations and suggestions are forthcoming. Prognosis is certainly guarded. The patient has medication for agitation and restlessness. Plan dated 07/13/2022. Labs, x-rays, medications are reviewed. Solu-Medrol dose is reduced. The patient did not wear BiPAP last night. 2 [facility] Surgery is seen the patient for his distended abdomen. We will continue to follow make recommendations along the way. Prognosis is certainly guarded but I have to say, the patient's much more calm and less agitated and restless today. Plan dated 07/14/2022. Labs, x-rays, and medications are reviewed. The patient appears to be doing much better. He remains on AIRVO. Settings are 45 L/m with an FiO2 of 60%. Tube feedings on hold because of abdominal distention. The patient's getting dextrose with half-normal saline at 50 mL an hour. The serum sodium value is much improved. We will continue to follow the patient and make recommendations along the way. Prognosis is guarded. Time with Patient: Less than 30
[2022-07-14 17:47] LABS: Glucose,Whole Blood 217 mg/dL (70-110)
[2022-07-14] MEDS: ATORVASTATIN 10 MG TAB PO SCH (21:16)
[2022-07-14 23:46] LABS: Glucose,Whole Blood 266 mg/dL (70-110)
--- NOTE | 2022-07-15 00:08 | PN ---
PROGRESS NOTE HISTORY OF PRESENT ILLNESS: A 66-year-old gentleman, who remains in ICU. MEDICATIONS: The patient is currently on, 1. Cordarone 200 b.i.d. 2. Eliquis 5 mg b.i.d. 3. Lipitor 10 daily. 4. Catapres patch. 5. Apresoline. PHYSICAL EXAMINATION: VITAL SIGNS: Heart rate is 67 beats per minute, blood pressure is 160/75, but has been well controlled at other times. CHEST: Reveals diminished air entry at the bases. HEART: Reveals first and second heart sounds. No gallop. EXTREMITIES: Reveals mild edema. Peripheral pulses are palpable. ASSESSMENT: 1. Respiratory failure. 2. Paroxysmal atrial fibrillation. 3. Hypertension. 4. Type 2 diabetes. PLAN: The patient will continue current medications. We will adjust the antihypertensives if necessary. MMODL / IJN: [id number] /
[2022-07-15] MEDS: methylPREDNISolone SOD SUCCI 40 MG/ML 1 ML VIAL IV SCH ×4 (02:45→21:02)
[2022-07-15] MEDS: DEXTROSE 5%-0.45% NACL 1,000 ML IV SCH ×2 (02:59→16:38)
[2022-07-15 06:17] LABS: Glucose,Whole Blood 197 mg/dL (70-110)
[2022-07-15] MEDS: INSULIN DETEMIR (LEVEMIR) 100 UNIT/ML SYR SQ SCH ×2 (06:21→21:03)
[2022-07-15] MEDS: INSULIN ASPART (NovoLOG) 100 UNIT/ML VIAL SQ SCH ×10 (06:22→21:04)
[2022-07-15] MEDS: FORMOTEROL FUMARATE 20 MCG/2 ML NEBU INHALATION SCH ×2 (07:52→19:27)
[2022-07-15] MEDS: IPRATROPIUM-ALBUTEROL 3 ML NEB INHALATION SCH ×4 (07:52→19:27)
[2022-07-15] MEDS: BUDESONIDE 1 MG/2 ML NEBU INHALATION SCH ×2 (07:52→19:27)
[2022-07-15 08:30] LABS: Basophils % (A) 0 %; Eosinophils % (A) 0 %; HGB 14.5 gm/dL (13.0-17.5); Lymphocytes # (A) 0.4 k/uL (1.0-4.8); Lymphocytes % (A) 3 %; MCH 30.6 pg (25.0-35.0); MCHC 33.7 g/dL (31.0-37.0); MCV 90.6 fL (80.0-100.0); Mean Platelet Volume 7.8; Monocytes # (A) 0.4 k/uL (0-1.0); Monocytes % (A) 3 %; Neutrophils # (A) 11.1 k/uL (1.3-7.7); Neutrophils % (A) 93 %; Platelet Count 188 k/uL (150-450); RBC 4.75 m/uL (4.30-5.90); RDW 11.7 % (11.5-15.5)
[2022-07-15] MEDS ORDERED: BENZOCAINE/MENTHOL LOZENG 1 EACH LOZENGE MUCOUS MEM PRN (08:41)
[2022-07-15] MEDS: AMIODARONE 200 MG TAB PO SCH ×2 (08:43→21:03)
[2022-07-15] MEDS: VERAPAMIL 80 MG TAB PO SCH ×3 (08:43→21:04)
[2022-07-15] MEDS: hydrALAZINE HCL 50 MG TAB PO SCH ×2 (08:43→21:02)
[2022-07-15] MEDS: APIXABAN 5 MG TAB PO SCH ×2 (08:43→21:03)
[2022-07-15] MEDS: QUEtiapine 50 MG TAB PO SCH ×3 (08:43→21:02)
[2022-07-15] MEDS: FAMOTIDINE 20 MG/2 ML VIAL IV SCH ×2 (08:44→21:02)
[2022-07-15] MEDS: NYSTATIN 100,000 UNIT/ML SUSP 500,000 UNIT/5 ML CUP PO SCH ×4 (08:44→21:04)
[2022-07-15] MEDS: bisacodyL 10 MG SUPP RECTAL SCH (08:44)
--- NOTE | 2022-07-15 08:53 | P.PN ---
Subjective Patient is seen in follow-up for hypernatremia. Sodium level normal yesterday. Morning labs pending. Currently on half-normal saline. Remains on arivo. NG tube removed yesterday. Unclear liquid diet. Vital signs are stable. General: Awake. No acute distress. HEENT: On Airvo. LUNGS: Breath sounds decreased. HEART: Rate and Rhythm are regular. ABDOMEN: Mild distention. EXTREMITITES: No edema. Objective - Vital Signs Vital signs: Vital Signs Temp 97.9 F 07/15/22 08:00 Pulse 66 07/15/22 08:13 Resp 12 07/15/22 08:00 BP 133/80 07/15/22 08:00 Pulse Ox 94 L 07/15/22 08:00 FiO2 56 07/15/22 08:00 Intake & Output 07/14/22 07/15/22 07/15/22 18:59 06:59 18:59 Intake Total 675 670 580 Output Total 715 875 125 Balance -40 -205 455 Weight 85.6 kg Intake: IV 675 550 100 Dextrose 5% in Water 1, 675 550 50 000 ml @ 75 mls/hr IV . [id number] [facility] Rx#:[id number] Dextrose 5%-0.45% NaCl 1, 50 000 ml @ 50 mls/hr IV . Q20H [facility] Rx#:[id number] Oral 120 480 Output: Urine 715 875 125 Other: Voiding Method Indwelling Catheter Indwelling Catheter - Labs CBC & Chem 7: 07/15/22 07:54 07/14/22 05:36 Labs: Abnormal Lab Results - Last 24 Hours (Table) 07/14/22 07/14/22 07/14/22 Range/Units 11:23 17:45 23:44 WBC (3.8-10.6) k/uL Neutrophils # (1.3-7.7) k/uL Lymphocytes # (1.0-4.8) k/uL POC Glucose (mg/dL) 150 H 217 H 266 H (70-110) mg/dL 07/15/22 07/15/22 Range/Units 06:16 07:54 WBC 12.0 H (3.8-10.6) k/uL Neutrophils # 11.1 H (1.3-7.7) k/uL Lymphocytes # 0.4 L (1.0-4.8) k/uL POC Glucose (mg/dL) 197 H (70-110) mg/dL Assessment and Plan Plan: Assessment: 1. Mild acute kidney injury secondary to hemodynamic ATN. Improved. Creatinine 1.08 yesterday. No hydronephrosis noted on CAT scan. 2. Hypernatremia from lack of oral water intake. Improved. 3. Ileus. Surgery following. NG tube removed. 4. SVT. Seen by cardiology. Heart rate currently stable. 5. Diabetes mellitus. Plan: Maintain IV fluids. Morning labs pending. Continue to monitor renal function and urine output. Avoid nephrotoxins.
[2022-07-15 08:55] LABS: Albumin 2.5 g/dL (3.5-5.0); Calcium 6.7 mg/dL (8.4-10.2); Potassium 4.3 mmol/L (3.5-5.1); Total Bilirubin 0.9 mg/dL (0.2-1.3); Total Protein 4.7 g/dL (6.3-8.2)
--- NOTE | 2022-07-15 09:59 | P.PN ---
Subjective Progress Note Date: 07/15/22 This patient is a 66 with COPD, moderately severe, previous history of laryngeal cancer in 2017 treated with radiation therapy and BPH. The patient is currently being seen in the intensive care unit for alcohol withdrawal was and hypoxic respiratory failure. This morning, is awake and alert and there is no significant agitation. He remains on high flow oxygen at 45 L with an FiO2 of 56%. His current pulse ox is around 89%. Note that he had a CT angiogram at time of admission that showed no evidence of any pulmonary embolism. It showed emphysema and mild portal fibrosis. His resting comfortably in bed. He has no significant shortness of breath at rest. The same time, the patient has been in normal sinus rhythm. Noted at the time of admission, he was in atrial fibrillation and he was treated with a Cardizem drip and currently is off the drip. He is also off Precedex for now. Neurologically, he is alert and oriented 3. His most recent chest x-ray from yesterday showing some atelec tatic changes in the lung bases and emphysema. Otherwise no other major abnormalities are noted. In terms of treatment, the patient is currently on DuoNeb about treatments [id number], he is on Pulmicort Respules 1 mg twice a day, he is on IV Solu-Medrol 40 mg every 6 hours. Is also on performance 1 nevertheless treatment twice a day. He is covered with antibiotics and the patient is receiving Rocephin 2 g every 24 hours. His blood cultures from this admission is negative. The white cell count is at 12 with a hemoglobin of 14.7 and a platelet count of 188. BUN is 44 with a creatinine of 1.1 and sodium levels of 137. In terms of his viral screen, the patient had a negative Covid 19 infection. Influenza screen was negative at the time of admission. Objective - Vital Signs Vital signs: Vital Signs Temp 97.9 F 07/15/22 08:00 Pulse 77 07/15/22 09:00 Resp 14 07/15/22 09:00 BP 126/75 07/15/22 09:00 Pulse Ox 94 L 07/15/22 09:00 FiO2 56 07/15/22 08:00 Intake & Output 07/14/22 07/15/22 07/15/22 18:59 06:59 18:59 Intake Total 675 670 655 Output Total 715 875 185 Balance -40 -205 470 Weight 85.6 kg Intake: IV 675 550 175 Dextrose 5% in Water 1, 675 550 50 000 ml @ 75 mls/hr IV . [id number] [facility] Rx#:[id number] Dextrose 5%-0.45% NaCl 1, 75 000 ml @ 50 mls/hr IV . Q20H [facility] Rx#:[id number] cefTRIAXone 2 gm In 50 Sodium Chloride 0.9% 50 ml @ 100 mls/hr IVPB Q24HR [facility] Rx#:[id number] Oral 120 480 Output: Urine 715 875 185 Other: Voiding Method Indwelling Catheter Indwelling Catheter Indwelling Catheter - Exam No acute distress, much more calm today, currently on AIRVO. HEENT examination is grossly unremarkable. Neck supple. Full range of motion. No adenopathy thyromegaly or neck vein distention. Cardiovascular examination reveals regular rhythm rate. S1-S2 normal. No S3 or S4. No discernible murmur noted. Heart sounds are distant. Lungs reveal bilateral coarse inspiratory expiratory rhonchi, and expiratory wheezes. No crackles. Saturations are 90 % on AIRVO. Abdomen soft, without bowel sounds. No masses or tenderness. Extremities are intact. No cyanosis clubbing or edema. Skin is without rash or lesion.Examination of the skin revealed no evidence of significant rashes, suspicious appearing nevi or other concerning lesions. Neurologic examination Neurologically, the patient is awake and alert and the patient does not have any focal neurological deficit. Cranial nerves are essentially intact. - Labs CBC & Chem 7: 07/15/22 07:54 07/15/22 07:54 Labs: Abnormal Lab Results - Last 24 Hours (Table) 07/14/22 07/14/22 07/14/22 Range/Units 11:23 17:45 23:44 WBC (3.8-10.6) k/uL Neutrophils # (1.3-7.7) k/uL Lymphocytes # (1.0-4.8) k/uL Carbon Dioxide (22-30) mmol/L BUN (9-20) mg/dL Glucose (74-99) mg/dL POC Glucose (mg/dL) 150 H 217 H 266 H (70-110) mg/dL Calcium (8.4-10.2) mg/dL ALT (4-49) U/L Total Protein (6.3-8.2) g/dL Albumin (3.5-5.0) g/dL 07/15/22 07/15/22 07/15/22 Range/Units 06:16 07:54 07:54 WBC 12.0 H (3.8-10.6) k/uL Neutrophils # 11.1 H (1.3-7.7) k/uL Lymphocytes # 0.4 L (1.0-4.8) k/uL Carbon Dioxide 33 H (22-30) mmol/L BUN 44 H (9-20) mg/dL Glucose 187 H (74-99) mg/dL POC Glucose (mg/dL) 197 H (70-110) mg/dL Calcium 6.7 L (8.4-10.2) mg/dL ALT 66 H (4-49) U/L Total Protein 4.7 L (6.3-8.2) g/dL Albumin 2.5 L (3.5-5.0) g/dL Assessment and Plan Plan: Acute hypoxemic respiratory failure secondary to COPD exacerbation and the patient presented with acute hypoxic and hypercapnic respiratory failure. Most recent blood gases from 07/10/2022 showed improvement in the acid base status. He was on BiPAP and subsequently was switched to high flow oxygen. Oxygenation is an ongoing issue. Chest x-ray showing atelectatic changes a lung base bilaterally. Severe COPD and the patient has an FEV1 of 39% of predicted at baseline and this is based on spirometry that was done on 09/28/2020. The patient has been maintained on Advair and DuoNeb about treatments [id number].. Possible acute withdrawal, from either tobacco and/or alcohol. Acute tracheobronchitis. Supraventricular tachycardia/atrial fibrillation with RVR. Patient is currently on normal sinus rhythm. The patient is also on anticoagulation with Eliquis. The patient has a normal LV function Acute hypernatremia, recovered History of laryngeal carcinoma, in remission, status post radiation treatment, diagnosed in 2017. Acute hypercapnic respiratory failure secondary to severe COPD. Plan The patient will be given an incentive spirometer Continue bronchodilators and steroids Deep breathing and pulmonary toileting Wean down FiO2 as tolerated to maintain a saturation above 90% Most recent chest x-ray showing essentially atelectatic changes in lung bases bilaterally and the most recent CAT scan of the abdomen and pelvis showed no significant intra-abdominal abnormalities. No evidence of any bowel obstruction most recent CAT scan of the chest showed no evidence of any pulmonary embolism
--- NOTE | 2022-07-15 10:17 | P.PN ---
Subjective Progress Note Date: 07/15/22 The patient is a 66-year-old male who is currently admitted to the hospital with COPD exacerbation. During his hospital admission he developed A. fib with RVR. He was started on amiodarone and has maintained sinus rhythm over the last 24 hours. Echocardiogram showed preserved LV function with small pericardial effusion. The patient was interviewed and examined resting comfortably in bed. He states he feels well at rest and denies any current dyspnea, orthopnea, or chest discomfort. GENERAL: Well-appearing, well-nourished and in no acute distress. NECK: Supple without JVD or thyromegaly. LUNGS: Breath sounds diminished to auscultation bilaterally. Respiration equal and unlabored. No wheezes, rales or rhonchi. HEART: Irregular pulse. Distant heart sounds. EXTREMITIES: Normal range of motion, no edema. No clubbing or cyanosis. Peripheral pulses intact and strong. VITALS: Blood pressure 133/80, pulse 67, respiratory rate 12, SpO2 94% on high flow nasal cannula, temp 97.9F TELEMETRY: Sinus rhythm with heart rate in the 60s. No atrial fibrillation on last 24 hours. LABS: WBC 12.0, hemoglobin 14.5, hematocrit 43.0, platelet 188, sodium 137, potassium 4.3, BUN 44, creatinine 1.16, AST 50, ALT 66 IMPRESSION: Acute on chronic respiratory failure, COPD exacerbation Paroxysmal atrial fibrillation, currently in sinus rhythm Hypertension Diabetes mellitus, hemoglobin A1c 6.5 History of laryngeal cancer History of heart failure Hematuria PLAN: Continue current medication regimen Consider adding HEMALATHA/ARB Continue supportive treatment including aggressive pulmonary hygiene Further recommendations based on clinical course I am dictating on behalf of Dr Sergio Wiseman's history/physical and assessment/plan. Objective - Vital Signs Vital signs: Vital Signs Temp 97.9 F 07/15/22 08:00 Pulse 66 07/15/22 08:13 Resp 12 07/15/22 08:00 BP 133/80 07/15/22 08:00 Pulse Ox 94 L 07/15/22 08:00 FiO2 56 07/15/22 08:00 Intake & Output 07/14/22 07/15/22 07/15/22 18:59 06:59 18:59 Intake Total 670 809 655 Output Total 605 415 185 Balance -40 -205 470 Weight 85.6 kg Intake: IV 675 550 175 Dextrose 5% in Water 1, 675 550 50 000 ml @ 75 mls/hr IV . [id number] [facility] Rx#:[id number] Dextrose 5%-0.45% NaCl 1, 75 000 ml @ 50 mls/hr IV . Q20H [facility] Rx#:[id number] cefTRIAXone 2 gm In 50 Sodium Chloride 0.9% 50 ml @ 100 mls/hr IVPB Q24HR [facility] Rx#:[id number] Oral 120 480 Output: Urine 715 875 185 Other: Voiding Method Indwelling Catheter Indwelling Catheter - Labs CBC & Chem 7: 07/15/22 07:54 07/15/22 07:54 Labs: Abnormal Lab Results - Last 24 Hours (Table) 07/14/22 07/14/22 07/14/22 Range/Units 11:23 17:45 23:44 WBC (3.8-10.6) k/uL Neutrophils # (1.3-7.7) k/uL Lymphocytes # (1.0-4.8) k/uL Carbon Dioxide (22-30) mmol/L BUN (9-20) mg/dL Glucose (74-99) mg/dL POC Glucose (mg/dL) 150 H 217 H 266 H (70-110) mg/dL Calcium (8.4-10.2) mg/dL ALT (4-49) U/L Total Protein (6.3-8.2) g/dL Albumin (3.5-5.0) g/dL 07/15/22 07/15/22 07/15/22 Range/Units 06:16 07:54 07:54 WBC 12.0 H (3.8-10.6) k/uL Neutrophils # 11.1 H (1.3-7.7) k/uL Lymphocytes # 0.4 L (1.0-4.8) k/uL Carbon Dioxide 33 H (22-30) mmol/L BUN 44 H (9-20) mg/dL Glucose 187 H (74-99) mg/dL POC Glucose (mg/dL) 197 H (70-110) mg/dL Calcium 6.7 L (8.4-10.2) mg/dL ALT 66 H (4-49) U/L Total Protein 4.7 L (6.3-8.2) g/dL Albumin 2.5 L (3.5-5.0) g/dL
--- NOTE | 2022-07-15 11:23 | P.PN ---
Subjective Progress Note Date: 07/15/22 CHIEF COMPLAINT: Ileus in HISTORY OF PRESENT ILLNESS: Patient admitted to the hospital with shortness of breath evidence of COPD exacerbation, bronchitis and SVT. Patient remains in the ICU. Currently on high flow oxygen. Patient is more awake and alert. He is having flatus. No bowel movement. He denies any abdominal pain. NG tube was discontinued yesterday. Abdomen remains distended but has improved over the weekend. Afebrile. WBC is 12 Hgb 14.5 platelets 188 sodium 137 potassium 4.3 creatinine 1.16 Patient seen and examined with Dr. Jim PHYSICAL EXAM: VITAL SIGNS: Reviewed. GENERAL: Well-developed in no acute distress. ABDOMEN: Softer. Slight decrease in abdominal distention. Nontender. NEUROLOGIC: more awake ASSESSMENT: 1. Ileus 2. Acute COPD exacerbation with acute hypoxic respiratory failure 3. SVT PLAN: -Advance diet to full liquids -Continue Dulcolax suppositories -Encouraged patient to increase activity level -Continue supportive care -Continue ICU management Physician Tufter Operator note has been reviewed by physician. Signing provider agrees with the documented findings, assessment, and plan of care. Objective - Vital Signs Vital signs: Vital Signs Temp 97.9 F 07/15/22 08:00 Pulse 76 07/15/22 11:00 Resp 21 07/15/22 11:00 BP 144/79 07/15/22 11:00 Pulse Ox 90 L 07/15/22 11:00 FiO2 55 07/15/22 11:17 Intake & Output 07/14/22 07/15/22 07/15/22 18:59 06:59 18:59 Intake Total 675 670 755 Output Total 715 875 290 Balance -40 -205 465 Weight 85.6 kg Intake: IV 675 550 275 Dextrose 5% in Water 1, 675 550 50 000 ml @ 75 mls/hr IV . [id number] [facility] Rx#:[id number] Dextrose 5%-0.45% NaCl 1, 175 000 ml @ 50 mls/hr IV . Q20H [facility] Rx#:[id number] cefTRIAXone 2 gm In 50 Sodium Chloride 0.9% 50 ml @ 100 mls/hr IVPB Q24HR [facility] Rx#:[id number] Oral 120 480 Output: Urine 715 875 290 Other: Voiding Method Indwelling Catheter Indwelling Catheter Indwelling Catheter - Labs CBC & Chem 7: 07/15/22 07:54 07/15/22 07:54 Labs: Abnormal Lab Results - Last 24 Hours (Table) 07/14/22 07/14/22 07/14/22 Range/Units 11:23 17:45 23:44 WBC (3.8-10.6) k/uL Neutrophils # (1.3-7.7) k/uL Lymphocytes # (1.0-4.8) k/uL Carbon Dioxide (22-30) mmol/L BUN (9-20) mg/dL Glucose (74-99) mg/dL POC Glucose (mg/dL) 150 H 217 H 266 H (70-110) mg/dL Calcium (8.4-10.2) mg/dL ALT (4-49) U/L Total Protein (6.3-8.2) g/dL Albumin (3.5-5.0) g/dL 07/15/22 07/15/22 07/15/22 Range/Units 06:16 07:54 07:54 WBC 12.0 H (3.8-10.6) k/uL Neutrophils # 11.1 H (1.3-7.7) k/uL Lymphocytes # 0.4 L (1.0-4.8) k/uL Carbon Dioxide 33 H (22-30) mmol/L BUN 44 H (9-20) mg/dL Glucose 187 H (74-99) mg/dL POC Glucose (mg/dL) 197 H (70-110) mg/dL Calcium 6.7 L (8.4-10.2) mg/dL ALT 66 H (4-49) U/L Total Protein 4.7 L (6.3-8.2) g/dL Albumin 2.5 L (3.5-5.0) g/dL
[2022-07-15 11:24] LABS: Glucose,Whole Blood 184 mg/dL (70-110)
--- NOTE | 2022-07-15 12:30 | P.PN ---
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 Patient tried breathing treatments at home without much relief. Patient was tachycardic on admission with heart rate in 160s and was found to be SVT patient was given Ellenson in the ER. Otherwise denied any complaints of chest pain. No nausea vomiting or abdominal pain. Denied any increased leg swelling. No fever no chills. No prior history of SVT. Chest x-ray showed COPD. No active cardiopulmonary disease. Mild pulmonary fibrotic changes. No significant change. CTA chest showed no evidence of PE. Emphysema and mild pulmonary fibrosis. No suspicious pulmonary mass. Laboratory data showed WBC 16.0 hemoglobin 16.0 and platelets 269 Sodium 139 potassium four-point 102 bicarb is 20 BUN 16 and creatinine 0.87 and lactic acid 2.7 Troponin x1 negative and proBNP is 378 TSH 0.49 6 Coronavirus and influenza AMB not detected. Urinalysis is negative for infection. 07/08/2022 Patient continues to be monitored in intensive care unit mostly on BiPAP support but able to be weaned to 3 to 4 L of oxygen via nasal cannula. He is unsure when he has had bowel movement and has limited to no bowel sounds for this reason abdominal xray has been performed showing mildly distended small bowel loops and some segments of colon as well. Consider generalized ileus and difficult to exclude the possibility of a distal colonic obstruction. White blood cell count today 6.1, sodium 144, potassium 4.6, BUN 40, creatinine 0.99, blood glucose 150, magnesium 2.4. Procalcitonin 0.55. Vitals today, patient is afebrile, heart rate 71, blood pressure 121/64, 95% oxygen saturation. Patient has been maintained on dexmedetomidine for acute anxiety which is currently paused. Continues on IV Solu-Medrol, and bronchodilators. Patient is currently on IV cardizem gtt for tachycardia and will be transitioned to oral verapamil today, cardiology is following. 07/09/2022 Patient continues to be monitored in intensive care unit. White count elevated up to 12.4 today he has expiratory wheezing on exam changed from yesterday. Patient requiring bipap at 35% FiO2 currently. He did have low grade fever this morning 99 and is receiving acetaminophen as needed. chest xray today showing chronic emphysema and pulmonary fibrotic change. Procalcitonin level elevated at 0.55. IV ceftriaxone increased to 2 gram every 24 hours. Patient is continued on bronchodilators. Continues on IV solumedrol 60 mg q6h. Dexmedetomidine possibly being weaned off today, seroquel and haldol ordered with ativan as needed. Patient continues with significant abdominal distention and absent bowel sounds left lower quadrant. Did not receive lactulose yesterday. General surgery was consulted for further evaluation, currently placed NPO for possible ileus /bowel obstruction. He is hypertensive today with systolic in the 180s has been started on verapamil TID and also hydralazine 50 BID. Cardiology following. 07/10/2022 Patient evaluated today on BiPAP, fio2 has been increased to 40%, he is using accessory muscles to breath and appears quite aggitated. He is on combination of haldol, seroquel for this. Additionally, he was started on nicotine patch and clonidine patch. NG tube has been placed, patient has not had a BM. Abdominal Pelvis CT completed showing no CT evidence for small bowel obstruction. Patient also had follow up chest xray today showing COPD changes and no acute disease. Never the less he appears to have some respiratory distress requiring BiPAP. white count 11.7 today, sodium 149, BUN 47, creatinine 1.05, blood glucose 170s. Patient has been placed on amiodarone infusion and also heparin gtt as patient is unable to take oral medications currently. He continues on antibiotics. Continues on IV solumedrol. 07/11/2022 Patient is monitored in intensive care unit. Continues with NG tube. Tube feedings have been resumed with vital AF 1.2 with goal of 55 mls per hour. Currrently running at 20 mLs/hour. Patient has free water flush 30 mL every 4 hours, would like to increase free water and discontinue IV fluids. Sodium level today 148, potassium 4.1, chloride 110, BUN 51, creatinine 1.08. Blood glucose in the 240s and insulin has been increased. Patient is receiving lactulose, had fleet enema today. Has not had a BM this admission, bowel sounds in all 4 quadrants today. Amiodarone has been discontinued. Continues on oral verapamil. Heart rate is improving. Patient trialed on airvo 60/60 today. Chest xray showing no focal consolidation. 07/12/2022 Patient is evaluated in ICU, family at bedside. Continues on Airvo 60/60, reports non productive cough. Diffuse weakness. Abdomen distended seems worse than yesterday. Discussed with surgery. Tube feedings have been placed on hold a nd patient started on daily suppositories. Otherwise continues on empiric ceftriaxone. Chest xray showing COPD with possible underlying pulmonary vascular congestion. Sodium up to 150 today, nephrology consulted. Patient has been started on D5% water at 75 mls per hour. BUN 55 creatinine 1.22 today. Blood glucose 230s. Heart rate 120s today, blood pressure 130/91, remains afebrile. 07/13/2022 Patient continue in Intensive Care unit. Continues on Airvo 60/60. He reports breathing improved today less short of breath. Lung sounds have improved and increased aeration. Less congested. No BM yet, has been started on dulcolax suppository daily. Increased bowel sounds today and abdomen is less distended. Remains on IV ceftriaxone. White count normalized to 9.9. Sodium remains at 150, BUN 51, creatinine 1.21. Blood glucose 200s. hgb A1c found to be 6.5 consistent with diagnosis of diabetes mellitus type 2. Continues on levemir with sliding scale and scheduled novolog coverage. Remains afebrile, heart rate 87, blood pressure 177/91, oxygen saturation 95%. IV steroids have been decreased today. Continues on oral cardizem, oral verapamil. Continues on D5 water at 75 mls per hour. 07/14/2022 Patient continues to be monitored closely in intensive care unit. He continues on Airvo 45/60, has tolerated weaning and continues to report improvement in work of breathing. No wheezing noted on exam today has some coarse scattered ronchi. NG tube remains in place, he did have BM. Will discuss with surgery if NG tube can be discontinued. Will add nystatin swish today which can be applied manually versus swishing. Patient remains diffusely weak has been on bedrest. No breakdown noted on skin. Continues on oral amiodarone, verapamil, anticoagulated with eliquis. Patient has been maintained on empiric antibiotic coverage with IV ceftriaxone, tomorrow will be day 5. white count has normalized consider discontinuing antibiotics tomorrow. Patient is maintaining sinus rhythm today heart rate 80s, blood pressure 159/78, 93% oxygen saturation, has remained afebrile. Labs today are improving, white count remains within normal limits at 10.4, sodium 142, potassium 4.5, chloride normalized to 104, BUN 48, creatinine 1.08. Blood glucose 160s to 200s. IV fluids have been changed to D5 1/2 NS at 50. Repeat labs tomorrow. Multiple consultations following. PT/OT has been consulted. 07/15/22. Patient seen and examined. Daughter at the bedside. Patient continues to be on heated high flow oxygen. States he feels better. Denies any nausea, vomiting. Case discussed with nursing staff REVIEW OF SYSTEMS: CONSTITUTIONAL: No fever, no malaise, no fatigue. CARDIOVASCULAR: No chest pain, orthopnea, PND, no palpitations, no syncope. PULMONARY: Complaining of shortness of breath on exertion. no cough, no hemoptysis. GASTROINTESTINAL: No diarrhea, no nausea, no vomiting, no abdominal pain. PHYSICAL EXAMINATION: GENERAL: The patient is alert and oriented x3, not in any acute distress. Well developed, well nourished. HEENT: Pupils are round and equally reacting to light. EOMI. No scleral icterus. No conjunctival pallor. Normocephalic, atraumatic. No pharyngeal erythema. No thyromegaly. CARDIOVASCULAR: S1 and S2 present. No murmurs, rubs, or gallops. PULMONARY: Diminished breath sounds at the bases bilaterally. ABDOMEN: Soft, nontender, nondistended, normoactive bowel sounds. No palpable organomegaly. MUSCULOSKELETAL: No joint swelling or deformity. EXTREMITIES: No cyanosis, clubbing, or pedal edema. NEUROLOGICAL: Gross neurological examination did not reveal any focal deficits. SKIN: No rashes. Assessment and plan Acute hypoxic respiratory failure on airvo 45/60 Worsening shortness of breath secondary to acute COPD exacerbation and tracheobronchitis SVT Atrial fibrillation with rapid rate converted to normal sinus rhythm Hypertension Hypernatremia, resolved Metabolic acidosis Acute kidney injury Diabetes Mellitus type 2 A1C 6.5. Ileus, resolving BPH Prior history of smoking History of throat cancer and vocal cord status post radiation 2016 Plan: Monitor electrolytes. Continue oxygen supplementation Aggressive pulmonary hygiene Continue verapamil, oral amiodarone, eliquis Continue IV Rocephin Continue IV Solu-Medrol. Continue breathing treatments Follow-up on cardiology recommendations Follow-up on pulmonary recommendations Follow-up in nephrology recommendations DVT prophylaxis: Objective - Vital Signs Vital signs: Vital Signs Temp 97.9 F 07/15/22 08:00 Pulse 76 07/15/22 11:00 Resp 21 07/15/22 11:00 BP 144/79 07/15/22 11:00 Pulse Ox 90 L 07/15/22 11:00 FiO2 55 07/15/22 11:17 Intake & Output 07/14/22 07/15/22 07/15/22 18:59 06:59 18:59 Intake Total 675 670 755 Output Total 715 875 290 Balance -40 -205 465 Weight 85.6 kg Intake: IV 675 550 275 Dextrose 5% in Water 1, 675 550 50 000 ml @ 75 mls/hr IV . [id number] [facility] Rx#:[id number] Dextrose 5%-0.45% NaCl 1, 175 000 ml @ 50 mls/hr IV . Q20H [facility] Rx#:[id number] cefTRIAXone 2 gm In 50 Sodium Chloride 0.9% 50 ml @ 100 mls/hr IVPB Q24HR [facility] Rx#:[id number] Oral 120 480 Output: Urine 715 875 290 Other: Voiding Method Indwelling Catheter Indwelling Catheter Indwelling Catheter - Labs CBC & Chem 7: 07/15/22 07:54 07/15/22 07:54 Labs: Abnormal Lab Results - Last 24 Hours (Table) 07/14/22 07/14/22 07/15/22 Range/Units 17:45 23:44 06:16 WBC (3.8-10.6) k/uL Neutrophils # (1.3-7.7) k/uL Lymphocytes # (1.0-4.8) k/uL Carbon Dioxide (22-30) mmol/L BUN (9-20) mg/dL Glucose (74-99) mg/dL POC Glucose (mg/dL) 217 H 266 H 197 H (70-110) mg/dL Calcium (8.4-10.2) mg/dL ALT (4-49) U/L Total Protein (6.3-8.2) g/dL Albumin (3.5-5.0) g/dL 07/15/22 07/15/22 07/15/22 Range/Units 07:54 07:54 11:22 WBC 12.0 H (3.8-10.6) k/uL Neutrophils # 11.1 H (1.3-7.7) k/uL Lymphocytes # 0.4 L (1.0-4.8) k/uL Carbon Dioxide 33 H (22-30) mmol/L BUN 44 H (9-20) mg/dL Glucose 187 H (74-99) mg/dL POC Glucose (mg/dL) 184 H (70-110) mg/dL Calcium 6.7 L (8.4-10.2) mg/dL ALT 66 H (4-49) U/L Total Protein 4.7 L (6.3-8.2) g/dL Albumin 2.5 L (3.5-5.0) g/dL
[2022-07-15 16:29] LABS: Glucose,Whole Blood 263 mg/dL (70-110)
[2022-07-15 20:24] LABS: Glucose,Whole Blood 251 mg/dL (70-110)
[2022-07-15] MEDS ORDERED: SODIUM CHLORIDE 0.9% 2,000 ML IV ONE (20:51)
[2022-07-15] MEDS: ATORVASTATIN 10 MG TAB PO SCH (21:03)
[2022-07-15] MEDS: HALOPERIDOL LACTATE 5 MG/ML 1 ML VIAL IVP PRN (23:57)
[2022-07-16] MEDS: IPRATROPIUM-ALBUTEROL 3 ML NEB INHALATION PRN ×2 (00:30→04:10)
[2022-07-16] MEDS: methylPREDNISolone SOD SUCCI 40 MG/ML 1 ML VIAL IV SCH ×4 (02:45→21:11)
[2022-07-16 04:08] LABS: Glucose,Whole Blood 143 mg/dL (70-110)
[2022-07-16 06:43] LABS: Basophils % (A) 0 %; Eosinophils % (A) 0 %; HCT 43.5 % (39.0-53.0); HGB 14.8 gm/dL (13.0-17.5); Lymphocytes # (A) 0.3 k/uL (1.0-4.8); Lymphocytes % (A) 3 %; MCH 30.9 pg (25.0-35.0); MCV 90.9 fL (80.0-100.0); Mean Platelet Volume 8.7; Monocytes # (A) 0.3 k/uL (0-1.0); Monocytes % (A) 3 %; Neutrophils # (A) 11.2 k/uL (1.3-7.7); Neutrophils % (A) 94 %; Platelet Count 146 k/uL (150-450); RBC 4.79 m/uL (4.30-5.90); RDW 12.2 % (11.5-15.5)
[2022-07-16 07:01] LABS: Glucose,Whole Blood 219 mg/dL (70-110)
[2022-07-16 07:01] LABS: Albumin 2.5 g/dL (3.5-5.0); Calcium 6.7 mg/dL (8.4-10.2); Potassium 4.4 mmol/L (3.5-5.1); Total Bilirubin 0.9 mg/dL (0.2-1.3); Total Protein 4.6 g/dL (6.3-8.2)
[2022-07-16] MEDS: INSULIN ASPART (NovoLOG) 100 UNIT/ML VIAL SQ SCH ×8 (07:10→21:14)
[2022-07-16] MEDS: INSULIN DETEMIR (LEVEMIR) 100 UNIT/ML SYR SQ SCH ×2 (07:10→21:23)
[2022-07-16] MEDS: BUDESONIDE 1 MG/2 ML NEBU INHALATION SCH ×2 (07:51→19:46)
[2022-07-16] MEDS: FORMOTEROL FUMARATE 20 MCG/2 ML NEBU INHALATION SCH ×2 (07:51→19:46)
[2022-07-16] MEDS: IPRATROPIUM-ALBUTEROL 3 ML NEB INHALATION SCH ×4 (07:52→19:46)
[2022-07-16] MEDS: AMIODARONE 200 MG TAB PO SCH ×2 (08:32→21:12)
[2022-07-16] MEDS: APIXABAN 5 MG TAB PO SCH ×2 (08:32→21:12)
[2022-07-16] MEDS: VERAPAMIL 80 MG TAB PO SCH (08:54)
[2022-07-16] MEDS: FUROSEMIDE 10 MG/ML 4 ML VIAL IV SCH ×2 (08:54→21:12)
[2022-07-16] MEDS: QUEtiapine 50 MG TAB PO SCH (08:54)
[2022-07-16] MEDS: NYSTATIN 100,000 UNIT/ML SUSP 500,000 UNIT/5 ML CUP PO SCH ×4 (08:54→21:12)
[2022-07-16] MEDS: bisacodyL 10 MG SUPP RECTAL SCH (08:55)
[2022-07-16] MEDS: FAMOTIDINE 20 MG/2 ML VIAL IV SCH ×2 (08:58→21:11)
[2022-07-16] MEDS: hydrALAZINE HCL 50 MG TAB PO SCH ×2 (09:00→21:12)
--- NOTE | 2022-07-16 09:19 | P.PN ---
Subjective Progress Note Date: 07/16/22 The patient is a 66-year-old male who is currently admitted to the hospital with COPD exacerbation. During his hospital admission he developed A. fib with RVR. He was started on amiodarone and has maintained sinus rhythm over the last 24 hours. Echocardiogram showed preserved LV function with small pericardial effusion. The patient was interviewed and examined resting comfortably in bed. He states he feels well at rest and denies any current dyspnea, orthopnea, or chest discomfort. GENERAL: Well-appearing, well-nourished and in no acute distress. NECK: Supple without JVD or thyromegaly. LUNGS: Breath sounds diminished to auscultation bilaterally. Respiration equal and unlabored. Bilateral rhonchi. HEART: Irregular pulse. S1 and S2. No murmurs, rubs, or gallops. EXTREMITIES: Normal range of motion, no edema. No clubbing or cyanosis. Peripheral pulses intact and strong. VITALS: Blood pressure 113/68, respiratory rate 25, pulse 80, SpO2 90% on 40 L of high flow TELEMETRY: Sinus rhythm with heart rate in the 60s. LABS: WBC 12.0, hemoglobin 14.8, hematocrit 43.5, platelet 146, sodium 137, potassium 4.4, BUN 44, creatinine 1.05, AST 44, ALT 79 IMPRESSION: Acute on chronic respiratory failure, COPD exacerbation Paroxysmal atrial fibrillation, currently in sinus rhythm Hypertension Diabetes mellitus, hemoglobin A1c 6.5 History of laryngeal cancer History of heart failure Hematuria PLAN: Switch to long-acting verapamil Start valsartan as the patient is diabetic Wean off of hydralazine Continue supportive treatment including aggressive pulmonary hygiene Further recommendations based on clinical course I am dictating on behalf of Dr Sergio Wiseman's history/physical and a ssessment/plan. Objective - Vital Signs Vital signs: Vital Signs Temp 98.2 F 07/16/22 08:00 Pulse 84 07/16/22 08:13 Resp 28 H 07/16/22 09:00 BP 113/68 07/16/22 09:00 Pulse Ox 90 L 07/16/22 09:00 FiO2 35 07/16/22 08:53 Intake & Output 07/15/22 07/16/22 07/16/22 18:59 06:59 18:59 Intake Total 955 550 550 Output Total 710 778 140 Balance 245 -228 410 Intake: IV 475 550 70 Dextrose 5% in Water 1, 50 000 ml @ 75 mls/hr IV . [id number] [facility] Rx#:[id number] Dextrose 5%-0.45% NaCl 1, 375 550 70 000 ml @ 50 mls/hr IV . Q20H [facility] Rx#:[id number] cefTRIAXone 2 gm In 50 Sodium Chloride 0.9% 50 ml @ 100 mls/hr IVPB Q24HR [facility] Rx#:[id number] Oral 480 480 Output: Urine 710 778 140 Other: Voiding Method Indwelling Catheter Indwelling Catheter Indwelling Catheter # Bowel Movements 0 - Labs CBC & Chem 7: 07/16/22 05:51 07/16/22 05:51 Labs: Abnormal Lab Results - Last 24 Hours (Table) 07/15/22 07/15/22 07/15/22 Range/Units 11: 16:27 20:21 WBC (3.8-10.6) k/uL Plt Count (150-450) k/uL Neutrophils # (1.3-7.7) k/uL Lymphocytes # (1.0-4.8) k/uL Carbon Dioxide (22-30) mmol/L BUN (9-20) mg/dL Glucose (74-99) mg/dL POC Glucose (mg/dL) 184 H 263 H 251 H (70-110) mg/dL Calcium (8.4-10.2) mg/dL ALT (4-49) U/L Total Protein (6.3-8.2) g/dL Albumin (3.5-5.0) g/dL 07/16/22 07/16/22 07/16/22 Range/Units 04:07 05:51 05:51 WBC 12.0 H (3.8-10.6) k/uL Plt Count 146 L (150-450) k/uL Neutrophils # 11.2 H (1.3-7.7) k/uL Lymphocytes # 0.3 L (1.0-4.8) k/uL Carbon Dioxide 31 H (22-30) mmol/L BUN 44 H (9-20) mg/dL Glucose 182 H (74-99) mg/dL POC Glucose (mg/dL) 143 H (70-110) mg/dL Calcium 6.7 L (8.4-10.2) mg/dL ALT 79 H (4-49) U/L Total Protein 4.6 L (6.3-8.2) g/dL Albumin 2.5 L (3.5-5.0) g/dL 07/16/22 Range/Units 06:59 WBC (3.8-10.6) k/uL Plt Count (150-450) k/uL Neutrophils # (1.3-7.7) k/uL Lymphocytes # (1.0-4.8) k/uL Carbon Dioxide (22-30) mmol/L BUN (9-20) mg/dL Glucose (74-99) mg/dL POC Glucose (mg/dL) 219 H (70-110) mg/dL Calcium (8.4-10.2) mg/dL ALT (4-49) U/L Total Protein (6.3-8.2) g/dL Albumin (3.5-5.0) g/dL
[2022-07-16] MEDS: HALOPERIDOL LACTATE 5 MG/ML 1 ML VIAL IVP PRN (10:16)
[2022-07-16 11:14] LABS: Glucose,Whole Blood 278 mg/dL (70-110)
[2022-07-16] MEDS: VERAPAMIL SR 240 MG TABLET.ER PO SCH (11:38)
--- NOTE | 2022-07-16 12:13 | P.PN ---
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 Patient tried breathing treatments at home without much relief. Patient was tachycardic on admission with heart rate in 160s and was found to be SVT patient was given Ellenson in the ER. Otherwise denied any complaints of chest pain. No nausea vomiting or abdominal pain. Denied any increased leg swelling. No fever no chills. No prior history of SVT. Chest x-ray showed COPD. No active cardiopulmonary disease. Mild pulmonary fibrotic changes. No significant change. CTA chest showed no evidence of PE. Emphysema and mild pulmonary fibrosis. No suspicious pulmonary mass. Laboratory data showed WBC 16.0 hemoglobin 16.0 and platelets 269 Sodium 139 potassium four-point 102 bicarb is 20 BUN 16 and creatinine 0.87 and lactic acid 2.7 Troponin x1 negative and proBNP is 378 TSH 0.49 6 Coronavirus and influenza AMB not detected. Urinalysis is negative for infection. 07/08/2022 Patient continues to be monitored in intensive care unit mostly on BiPAP support but able to be weaned to 3 to 4 L of oxygen via nasal cannula. He is unsure when he has had bowel movement and has limited to no bowel sounds for this reason abdominal xray has been performed showing mildly distended small bowel loops and some segments of colon as well. Consider generalized ileus and difficult to exclude the possibility of a distal colonic obstruction. White blood cell count today 6.1, sodium 144, potassium 4.6, BUN 40, creatinine 0.99, blood glucose 150, magnesium 2.4. Procalcitonin 0.55. Vitals today, patient is afebrile, heart rate 71, blood pressure 121/64, 95% oxygen saturation. Patient has been maintained on dexmedetomidine for acute anxiety which is currently paused. Continues on IV Solu-Medrol, and bronchodilators. Patient is currently on IV cardizem gtt for tachycardia and will be transitioned to oral verapamil today, cardiology is following. 07/09/2022 Patient continues to be monitored in intensive care unit. White count elevated up to 12.4 today he has expiratory wheezing on exam changed from yesterday. Patient requiring bipap at 35% FiO2 currently. He did have low grade fever this morning 99 and is receiving acetaminophen as needed. chest xray today showing chronic emphysema and pulmonary fibrotic change. Procalcitonin level elevated at 0.55. IV ceftriaxone increased to 2 gram every 24 hours. Patient is continued on bronchodilators. Continues on IV solumedrol 60 mg q6h. Dexmedetomidine possibly being weaned off today, seroquel and haldol ordered with ativan as needed. Patient continues with significant abdominal distention and absent bowel sounds left lower quadrant. Did not receive lactulose yesterday. General surgery was consulted for further evaluation, currently placed NPO for possible ileus /bowel obstruction. He is hypertensive today with systolic in the 180s has been started on verapamil TID and also hydralazine 50 BID. Cardiology following. 07/10/2022 Patient evaluated today on BiPAP, fio2 has been increased to 40%, he is using accessory muscles to breath and appears quite aggitated. He is on combination of haldol, seroquel for this. Additionally, he was started on nicotine patch and clonidine patch. NG tube has been placed, patient has not had a BM. Abdominal Pelvis CT completed showing no CT evidence for small bowel obstruction. Patient also had follow up chest xray today showing COPD changes and no acute disease. Never the less he appears to have some respiratory distress requiring BiPAP. white count 11.7 today, sodium 149, BUN 47, creatinine 1.05, blood glucose 170s. Patient has been placed on amiodarone infusion and also heparin gtt as patient is unable to take oral medications currently. He continues on antibiotics. Continues on IV solumedrol. 07/11/2022 Patient is monitored in intensive care unit. Continues with NG tube. Tube feedings have been resumed with vital AF 1.2 with goal of 55 mls per hour. Currrently running at 20 mLs/hour. Patient has free water flush 30 mL every 4 hours, would like to increase free water and discontinue IV fluids. Sodium level today 148, potassium 4.1, chloride 110, BUN 51, creatinine 1.08. Blood glucose in the 240s and insulin has been increased. Patient is receiving lactulose, had fleet enema today. Has not had a BM this admission, bowel sounds in all 4 quadrants today. Amiodarone has been discontinued. Continues on oral verapamil. Heart rate is improving. Patient trialed on airvo 60/60 today. Chest xray showing no focal consolidation. 07/12/2022 Patient is evaluated in ICU, family at bedside. Continues on Airvo 60/60, reports non productive cough. Diffuse weakness. Abdomen distended seems worse than yesterday. Discussed with surgery. Tube feedings have been placed on hold a nd patient started on daily suppositories. Otherwise continues on empiric ceftriaxone. Chest xray showing COPD with possible underlying pulmonary vascular congestion. Sodium up to 150 today, nephrology consulted. Patient has been started on D5% water at 75 mls per hour. BUN 55 creatinine 1.22 today. Blood glucose 230s. Heart rate 120s today, blood pressure 130/91, remains afebrile. 07/13/2022 Patient continue in Intensive Care unit. Continues on Airvo 60/60. He reports breathing improved today less short of breath. Lung sounds have improved and increased aeration. Less congested. No BM yet, has been started on dulcolax suppository daily. Increased bowel sounds today and abdomen is less distended. Remains on IV ceftriaxone. White count normalized to 9.9. Sodium remains at 150, BUN 51, creatinine 1.21. Blood glucose 200s. hgb A1c found to be 6.5 consistent with diagnosis of diabetes mellitus type 2. Continues on levemir with sliding scale and scheduled novolog coverage. Remains afebrile, heart rate 87, blood pressure 177/91, oxygen saturation 95%. IV steroids have been decreased today. Continues on oral cardizem, oral verapamil. Continues on D5 water at 75 mls per hour. 07/14/2022 Patient continues to be monitored closely in intensive care unit. He continues on Airvo 45/60, has tolerated weaning and continues to report improvement in work of breathing. No wheezing noted on exam today has some coarse scattered ronchi. NG tube remains in place, he did have BM. Will discuss with surgery if NG tube can be discontinued. Will add nystatin swish today which can be applied manually versus swishing. Patient remains diffusely weak has been on bedrest. No breakdown noted on skin. Continues on oral amiodarone, verapamil, anticoagulated with eliquis. Patient has been maintained on empiric antibiotic coverage with IV ceftriaxone, tomorrow will be day 5. white count has normalized consider discontinuing antibiotics tomorrow. Patient is maintaining sinus rhythm today heart rate 80s, blood pressure 159/78, 93% oxygen saturation, has remained afebrile. Labs today are improving, white count remains within normal limits at 10.4, sodium 142, potassium 4.5, chloride normalized to 104, BUN 48, creatinine 1.08. Blood glucose 160s to 200s. IV fluids have been changed to D5 1/2 NS at 50. Repeat labs tomorrow. Multiple consultations following. PT/OT has been consulted. 07/15/22. Patient seen and examined. Daughter at the bedside. Patient continues to be on heated high flow oxygen. States he feels better. Denies any nausea, vomiting. Case discussed with nursing staff 07/16/22. Patient seen and examined. Stated that he had a panic attack this morning, currently doing much better. Breathing is improving. Denies any chest pain. Continues to be on heated high flow REVIEW OF SYSTEMS: CONSTITUTIONAL: No fever, no malaise, no fatigue. CARDIOVASCULAR: No chest pain, orthopnea, PND, no palpitations, no syncope. PULMONARY: Complaining of shortness of breath on exertion. no cough, no hemoptysis. GASTROINTESTINAL: No diarrhea, no nausea, no vomiting, no abdominal pain. PHYSICAL EXAMINATION: GENERAL: The patient is alert and oriented x3, not in any acute distress. Well developed, well nourished. HEENT: Pupils are round and equally reacting to light. EOMI. No scleral icterus. No conjunctival pallor. Normocephalic, atraumatic. No pharyngeal erythema. No thyromegaly. CARDIOVASCULAR: S1 and S2 present. No murmurs, rubs, or gallops. PULMONARY: Tachypneic, Diminished breath sounds at the bases bilaterally. No crackles audible ABDOMEN: Soft, nontender, nondistended, normoactive bowel sounds. No palpable organomegaly. MUSCULOSKELETAL: No joint swelling or deformity. EXTREMITIES: No cyanosis, clubbing, or pedal edema. NEUROLOGICAL: Gross neurological examination did not reveal any focal deficits. SKIN: No rashes. Assessment and plan Acute hypoxic respiratory failure on airvo 45/60 Worsening shortness of breath secondary to acute COPD exacerbation and tracheobronchitis SVT Atrial fibrillation with rapid rate converted to normal sinus rhythm Hypertension Hypernatremia, resolved Metabolic acidosis Acute kidney injury Diabetes Mellitus type 2 A1C 6.5. Ileus, resolving BPH Prior history of smoking History of throat cancer and vocal cord status post radiation 2016 Plan: Monitor electrolytes. Continue oxygen supplementation Aggressive pulmonary hygiene Continue verapamil, oral amiodarone, eliquis Continue IV Rocephin Continue IV Solu-Medrol. Continue breathing treatments Gen. surgery evaluated the patient, recommended bowel regimen, advance diet to full liquid, Follow-up on cardiology recommendations Follow-up on pulmonary recommendations Follow-up in nephrology recommendations Objective - Vital Signs Vital signs: Vital Signs Temp 98.2 F 07/16/22 08:00 Pulse 92 07/16/22 11:00 Resp 10 L 07/16/22 11:00 BP 134/76 07/16/22 10:00 Pulse Ox 90 L 07/16/22 11:00 FiO2 35 07/16/22 10:39 Intake & Output 07/15/22 07/16/22 07/16/22 18:59 06:59 18:59 Intake Total 955 550 570 Output Total 710 778 615 Balance 245 -228 -45 Weight 85.6 kg Intake: IV 475 550 90 Dextrose 5% in Water 1, 50 000 ml @ 75 mls/hr IV . [id number] ALLIE Rx#:[id number] Dextrose 5%-0.45% NaCl 1, 375 550 90 000 ml @ 50 mls/hr IV . Q20H ALLIE Rx#:[id number] cefTRIAXone 2 gm In 50 Sodium Chloride 0.9% 50 ml @ 100 mls/hr IVPB Q24HR ALLIE Rx#:[id number] Oral 480 480 Output: Urine 710 778 615 Other: Voiding Method Indwelling Catheter Indwelling Catheter Indwelling Catheter # Bowel Movements 0 - Labs CBC & Chem 7: 07/16/22 05:51 07/16/22 05:51 Labs: Abnormal Lab Results - Last 24 Hours (Table) 07/15/22 07/15/22 07/16/22 Range/Units 16:27 20:21 04:07 WBC (3.8-10.6) k/uL Plt Count (150-450) k/uL Neutrophils # (1.3-7.7) k/uL Lymphocytes # (1.0-4.8) k/uL Carbon Dioxide (22-30) mmol/L BUN (9-20) mg/dL Glucose (74-99) mg/dL POC Glucose (mg/dL) 263 H 251 H 143 H (70-110) mg/dL Calcium (8.4-10.2) mg/dL ALT (4-49) U/L Total Protein (6.3-8.2) g/dL Albumin (3.5-5.0) g/dL 07/16/22 07/16/22 07/16/22 Range/Units 05:51 05:51 06:59 WBC 12.0 H (3.8-10.6) k/uL Plt Count 146 L (150-450) k/uL Neutrophils # 11.2 H (1.3-7.7) k/uL Lymphocytes # 0.3 L (1.0-4.8) k/uL Carbon Dioxide 31 H (22-30) mmol/L BUN 44 H (9-20) mg/dL Glucose 182 H (74-99) mg/dL POC Glucose (mg/dL) 219 H (70-110) mg/dL Calcium 6.7 L (8.4-10.2) mg/dL ALT 79 H (4-49) U/L Total Protein 4.6 L (6.3-8.2) g/dL Albumin 2.5 L (3.5-5.0) g/dL 07/16/22 Range/Units 11:13 WBC (3.8-10.6) k/uL Plt Count (150-450) k/uL Neutrophils # (1.3-7.7) k/uL Lymphocytes # (1.0-4.8) k/uL Carbon Dioxide (22-30) mmol/L BUN (9-20) mg/dL Glucose (74-99) mg/dL POC Glucose (mg/dL) 278 H (70-110) mg/dL Calcium (8.4-10.2) mg/dL ALT (4-49) U/L Total Protein (6.3-8.2) g/dL Albumin (3.5-5.0) g/dL
--- NOTE | 2022-07-16 14:50 | P.PN ---
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 The patient is currently being seen in the intensive care unit for alcohol withdrawal was and hypoxic respiratory failure. This morning, is awake and alert and there is no significant agitation. He remains on high flow oxygen at 45 L with an FiO2 of 56%. His current pulse ox is around 89%. Note that he had a CT angiogram at time of admission that showed no evidence of any pulmonary embolism. It showed emphysema and mild portal fibrosis. His resting comfortably in bed. He has no significant shortness of breath at rest. The same time, the patient has been in normal sinus rhythm. Noted at the time of admission, he was in atrial fibrillation and he was treated with a Cardizem drip and currently is off the drip. He is also off Precedex for now. Neurologically, he is alert and oriented 3. His most recent chest x-ray from yesterday showing some atelec tatic changes in the lung bases and emphysema. Otherwise no other major abnormalities are noted. In terms of treatment, the patient is currently on DuoNeb about treatments [id number], he is on Pulmicort Respules 1 mg twice a day, he is on IV Solu-Medrol 40 mg every 6 hours. Is also on performance 1 nevertheless treatment twice a day. He is covered with antibiotics and the patient is receiving Rocephin 2 g every 24 hours. His blood cultures from this admission is negative. The white cell count is at 12 with a hemoglobin of 14.7 and a platelet count of 188. BUN is 44 with a creatinine of 1.1 and sodium levels of 137. In terms of his viral screen, the patient had a negative Covid 19 infection. Influenza screen was negative at the time of admission. On today's evaluation of 07/16/2022, the patient remains on high flow oxygen at 45 L with an FiO2 of 50%. The patient is feeling better and less short of breath compared to yesterday. No significant cough or sputum production. The patient was offered an incentive spirometer and the patient is able to generate adequate volumes on the incentive spirometer, nevertheless, the values remain less than 500 mL. The patient is on IV Rocephin. The patient was growing Haemophilus influenza in his sputum. At the same time, the patient remains on bronchodilators and he is on DuoNeb neb blotchiness 4 times a day, he is on a combination of Perforomist and Pulmicort neb less treatments twice a day and IV Solu-Medrol and the doses 40 mg IV every 6 hours. He was started on diuretics and to dose of Lasix will be given to him today. In terms of his blood work, his sodium level is at 137 with a potassium level of 4.4, BUN of 44 with a creatinine of 1.05 with RBC count of 12 a hemoglobin 14.8 and a platelet count of 148. LFTs are essentially within normal limits. Objective - Vital Signs Vital signs: Vital Signs Temp 98.1 F 07/16/22 04:00 Pulse 84 07/16/22 08:13 Resp 21 07/16/22 07:00 BP 133/89 07/16/22 07:00 Pulse Ox 93 L 07/16/22 07:00 FiO2 55 07/16/22 07:27 Intake & Output 07/15/22 07/16/22 07/16/22 18:59 06:59 18:59 Intake Total 955 550 580 Output Total 710 778 110 Balance 245 -228 470 Intake: IV 475 550 100 Dextrose 5% in Water 1, 50 000 ml @ 75 mls/hr IV . [id number] ALLIE Rx#:[id number] Dextrose 5%-0.45% NaCl 1, 375 550 100 000 ml @ 50 mls/hr IV . Q20H ALLIE Rx#:[id number] cefTRIAXone 2 gm In 50 Sodium Chloride 0.9% 50 ml @ 100 mls/hr IVPB Q24HR ALLIE Rx#:[id number] Oral 480 480 Output: Urine 710 778 110 Other: Voiding Method Indwelling Catheter Indwelling Catheter Indwelling Catheter # Bowel Movements 0 - Exam No acute distress, much more calm today, currently on AIRVO. HEENT examination is grossly unremarkable. Neck supple. Full range of motion. No adenopathy thyromegaly or neck vein distention. Cardiovascular examination reveals regular rhythm rate. S1-S2 normal. No S3 or S4. No discernible murmur noted. Heart sounds are distant. Lungs reveal bilateral coarse inspiratory expiratory rhonchi, and expiratory wheezes. No crackles. Saturations are 90 % on AIRVO. Abdomen soft, without bowel sounds. No masses or tenderness. Extremities are intact. No cyanosis clubbing or edema. Skin is without rash or lesion.Examination of the skin revealed no evidence of significant rashes, suspicious appearing nevi or other concerning lesions. Neurologic examination Neurologically, the patient is awake and alert and the patient does not have any focal neurological deficit. Cranial nerves are essentially intact. - Labs CBC & Chem 7: 07/16/22 05:51 07/16/22 05:51 Labs: Abnormal Lab Results - Last 24 Hours (Table) 07/15/22 07/15/22 07/15/22 Range/Units 07:54 11: 16:27 WBC (3.8-10.6) k/uL Plt Count (150-450) k/uL Neutrophils # (1.3-7.7) k/uL Lymphocytes # (1.0-4.8) k/uL Carbon Dioxide 33 H (22-30) mmol/L BUN 44 H (9-20) mg/dL Glucose 187 H (74-99) mg/dL POC Glucose (mg/dL) 184 H 263 H (70-110) mg/dL Calcium 6.7 L (8.4-10.2) mg/dL ALT 66 H (4-49) U/L Total Protein 4.7 L (6.3-8.2) g/dL Albumin 2.5 L (3.5-5.0) g/dL 07/15/22 07/16/22 07/16/22 Range/Units 20:21 04:07 05:51 WBC 12.0 H (3.8-10.6) k/uL Plt Count 146 L (150-450) k/uL Neutrophils # 11.2 H (1.3-7.7) k/uL Lymphocytes # 0.3 L (1.0-4.8) k/uL Carbon Dioxide (22-30) mmol/L BUN (9-20) mg/dL Glucose (74-99) mg/dL POC Glucose (mg/dL) 251 H 143 H (70-110) mg/dL Calcium (8.4-10.2) mg/dL ALT (4-49) U/L Total Protein (6.3-8.2) g/dL Albumin (3.5-5.0) g/dL 07/16/22 07/16/22 Range/Units 05:51 06:59 WBC (3.8-10.6) k/uL Plt Count (150-450) k/uL Neutrophils # (1.3-7.7) k/uL Lymphocytes # (1.0-4.8) k/uL Carbon Dioxide 31 H (22-30) mmol/L BUN 44 H (9-20) mg/dL Glucose 182 H (74-99) mg/dL POC Glucose (mg/dL) 219 H (70-110) mg/dL Calcium 6.7 L (8.4-10.2) mg/dL ALT 79 H (4-49) U/L Total Protein 4.6 L (6.3-8.2) g/dL Albumin 2.5 L (3.5-5.0) g/dL Assessment and Plan Plan: Acute hypoxemic respiratory failure secondary to COPD exacerbation and the patient presented with acute hypoxic and hypercapnic respiratory failure. Most recent blood gases from 07/10/2022 showed improvement in the acid base status. He was on BiPAP and subsequently was switched to high flow oxygen. Oxygenation is an ongoing issue. Chest x-ray showing atelectatic changes a lung base bilaterally. The patient remains on high flow oxygen with 40 L with an FiO2 of 55% Severe COPD and the patient has an FEV1 of 39% of predicted at baseline and this is based on spirometry that was done on 09/28/2020. The patient has been torsten ntained on Advair and DuoNeb about treatments [id number].. Possible acute withdrawal, from either tobacco and/or alcohol. Acute tracheobronchitis. Supraventricular tachycardia/atrial fibrillation with RVR. Patient is currently on normal sinus rhythm. The patient is also on anticoagulation with Eliquis. The patient has a normal LV function Acute hypernatremia, recovered History of laryngeal carcinoma, in remission, status post radiation treatment, diagnosed in 2017. Acute hypercapnic respiratory failure secondary to severe COPD. Plan Reduce the flow gradually down to 40 L and assess the patient's oxygenation Gave the patient Lasix 40 mg IV 2 doses Continue with the rest of the treatment The patient will be given an incentive spirometer Continue bronchodilators and steroids Deep breathing and pulmonary toileting Wean down FiO2 as tolerated to maintain a saturation above 90% Most recent chest x-ray showing essentially atelectatic changes in lung bases bilaterally and the most recent CAT scan of the abdomen and pelvis showed no significant intra-abdominal abnormalities. No evidence of any bowel obstruction most recent CAT scan of the chest showed no evidence of any pulmonary embolism Long-term prognosis poor based above-mentioned I will continue to follow. The priority is to improve the patient's vaccination for now. Aggressive use of incentive spirometer. We'll continue to follow.
--- NOTE | 2022-07-16 14:50 | P.PN ---
Subjective Progress Note Date: 07/16/22 CHIEF COMPLAINT: Ileus in HISTORY OF PRESENT ILLNESS: Patient admitted to the hospital with shortness of breath evidence of COPD exacerbation, bronchitis and SVT. Patient remains in the ICU. Currently on high flow oxygen. Patient is more awake and alert. He is having flatus. No bowel movement. He denies any abdominal pain. He does report shortness of breath today. He is tolerating full liquid diet. He is asking for more to eat. Afebrile. WBC is 12 hemoglobin 14.8 potassium is 4.4 creatinine 1.05 Patient seen and examined with Dr. Jim PHYSICAL EXAM: VITAL SIGNS: Reviewed. GENERAL: Well-developed in no acute distress. ABDOMEN: Softer. Decreased abdominal distention. Nontender. NEUROLOGIC: more awake ASSESSMENT: 1. Ileus 2. Acute COPD exacerbation with acute hypoxic respiratory failure 3. SVT PLAN: -Advance diet as tolerated -Continue Dulcolax suppositories -Encouraged patient to increase activity level -Continue supportive care -Continue ICU management Physician Clinical Trial Data Manager note has been reviewed by physician. Signing provider agrees with the documented findings, assessment, and plan of care. Objective - Vital Signs Vital signs: Vital Signs Temp 98.3 F 07/16/22 12:00 Pulse 89 07/16/22 12:00 Resp 22 07/16/22 12:00 BP 136/76 07/16/22 12:00 Pulse Ox 91 L 07/16/22 12:00 FiO2 33 07/16/22 12:00 Intake & Output 07/15/22 07/16/22 07/16/22 18:59 06:59 18:59 Intake Total 955 550 580 Output Total 710 778 815 Balance 245 -228 -235 Weight 85.6 kg Intake: IV 475 550 100 Dextrose 5% in Water 1, 50 000 ml @ 75 mls/hr IV . [id number] ALLIE Rx#:[id number] Dextrose 5%-0.45% NaCl 1, 375 550 100 000 ml @ 50 mls/hr IV . Q20H ALLIE Rx#:[id number] cefTRIAXone 2 gm In 50 Sodium Chloride 0.9% 50 ml @ 100 mls/hr IVPB Q24HR ALLIE Rx#:[id number] Oral 480 480 Output: Urine 710 778 815 Other: Voiding Method Indwelling Catheter Indwelling Catheter Indwelling Catheter # Bowel Movements 0 - Labs CBC & Chem 7: 07/16/22 05:51 07/16/22 05:51 Labs: Abnormal Lab Results - Last 24 Hours (Table) 07/15/22 07/15/22 07/16/22 Range/Units 16:27 20:21 04:07 WBC (3.8-10.6) k/uL Plt Count (150-450) k/uL Neutrophils # (1.3-7.7) k/uL Lymphocytes # (1.0-4.8) k/uL Carbon Dioxide (22-30) mmol/L BUN (9-20) mg/dL Glucose (74-99) mg/dL POC Glucose (mg/dL) 263 H 251 H 143 H (70-110) mg/dL Calcium (8.4-10.2) mg/dL ALT (4-49) U/L Total Protein (6.3-8.2) g/dL Albumin (3.5-5.0) g/dL 07/16/22 07/16/22 07/16/22 Range/Units 05:51 05:51 06:59 WBC 12.0 H (3.8-10.6) k/uL Plt Count 146 L (150-450) k/uL Neutrophils # 11.2 H (1.3-7.7) k/uL Lymphocytes # 0.3 L (1.0-4.8) k/uL Carbon Dioxide 31 H (22-30) mmol/L BUN 44 H (9-20) mg/dL Glucose 182 H (74-99) mg/dL POC Glucose (mg/dL) 219 H (70-110) mg/dL Calcium 6.7 L (8.4-10.2) mg/dL ALT 79 H (4-49) U/L Total Protein 4.6 L (6.3-8.2) g/dL Albumin 2.5 L (3.5-5.0) g/dL 07/16/22 Range/Units 11:13 WBC (3.8-10.6) k/uL Plt Count (150-450) k/uL Neutrophils # (1.3-7.7) k/uL Lymphocytes # (1.0-4.8) k/uL Carbon Dioxide (22-30) mmol/L BUN (9-20) mg/dL Glucose (74-99) mg/dL POC Glucose (mg/dL) 278 H (70-110) mg/dL Calcium (8.4-10.2) mg/dL ALT (4-49) U/L Total Protein (6.3-8.2) g/dL Albumin (3.5-5.0) g/dL
[2022-07-16 17:30] LABS: Glucose,Whole Blood 296 mg/dL (70-110)
[2022-07-16 20:56] LABS: Glucose,Whole Blood 261 mg/dL (70-110)
[2022-07-16] MEDS: ALPRAZolam 0.5 MG TAB PO PRN (21:11)
[2022-07-16] MEDS: ATORVASTATIN 10 MG TAB PO SCH (21:12)
[2022-07-16] MEDS: VALSARTAN 80 MG TAB PO SCH (21:13)
[2022-07-17] MEDS: IPRATROPIUM-ALBUTEROL 3 ML NEB INHALATION PRN ×2 (00:59→03:32)
[2022-07-17 02:45] LABS: Glucose,Whole Blood 136 mg/dL (70-110)
[2022-07-17] MEDS: methylPREDNISolone SOD SUCCI 40 MG/ML 1 ML VIAL IV SCH ×4 (02:47→22:24)
[2022-07-17 07:08] LABS: Glucose,Whole Blood 177 mg/dL (70-110)
[2022-07-17] MEDS: FORMOTEROL FUMARATE 20 MCG/2 ML NEBU INHALATION SCH ×2 (07:16→21:19)
[2022-07-17] MEDS: BUDESONIDE 1 MG/2 ML NEBU INHALATION SCH ×2 (07:16→21:19)
[2022-07-17] MEDS: INSULIN ASPART (NovoLOG) 100 UNIT/ML VIAL SQ SCH ×8 (07:17→21:24)
[2022-07-17] MEDS: INSULIN DETEMIR (LEVEMIR) 100 UNIT/ML SYR SQ SCH ×2 (07:17→22:15)
[2022-07-17] MEDS: IPRATROPIUM-ALBUTEROL 3 ML NEB INHALATION SCH ×4 (07:17→21:19)
[2022-07-17 08:00] LABS: Basophils % (A) 0 %; Eosinophils % (A) 0 %; HCT 43.7 % (39.0-53.0); HGB 14.5 gm/dL (13.0-17.5); Lymphocytes # (A) 0.4 k/uL (1.0-4.8); Lymphocytes % (A) 2 %; MCH 30.1 pg (25.0-35.0); MCHC 33.1 g/dL (31.0-37.0); MCV 91.2 fL (80.0-100.0); Mean Platelet Volume 8.7; Monocytes # (A) 0.4 k/uL (0-1.0); Monocytes % (A) 3 %; Neutrophils # (A) 15.5 k/uL (1.3-7.7); Neutrophils % (A) 94 %; Platelet Count 187 k/uL (150-450); RDW 12.2 % (11.5-15.5); WBC 16.4 k/uL (3.8-10.6)
--- NOTE | 2022-07-17 08:09 | XR ---
EXAMINATION TYPE: XR chest 1V portable DATE OF EXAM: 07/17/2022 6:19 AM COMPARISON: Chest radiographs from 03/13/2022 TECHNIQUE: XR chest 1V portable Portable AP radiograph of the chest. CLINICAL INDICATION:Male, 66 years old with history of sob; FINDINGS: Lungs/Pleura: Bibasilar atelectasis with possible trace bilateral pleural effusions. There is no evid ence of pleural effusion, focal consolidation, or pneumothorax. Pulmonary vascularity: Unremarkable. Heart/mediastinum: Cardiomediastinal silhouette is unremarkable. Musculoskeletal: No acute osseous pathology. IMPRESSION: No significant change from prior with bibasilar atelectasis and trace bilateral pleural effusions.
[2022-07-17 08:14] LABS: Albumin 2.7 g/dL (3.5-5.0); Calcium 6.7 mg/dL (8.4-10.2); Potassium 4.2 mmol/L (3.5-5.1); Total Bilirubin 0.9 mg/dL (0.2-1.3); Total Protein 4.9 g/dL (6.3-8.2)
[2022-07-17] MEDS: NYSTATIN 100,000 UNIT/ML SUSP 500,000 UNIT/5 ML CUP PO SCH ×4 (08:52→22:25)
[2022-07-17] MEDS: FAMOTIDINE 20 MG/2 ML VIAL IV SCH ×2 (08:52→22:15)
[2022-07-17] MEDS: APIXABAN 5 MG TAB PO SCH ×2 (08:52→22:16)
[2022-07-17] MEDS: cloNIDine 0.2 MG/24HR PATCH TRANSDERM SCH (08:53)
[2022-07-17] MEDS: VERAPAMIL SR 240 MG TABLET.ER PO SCH (08:53)
[2022-07-17] MEDS: AMIODARONE 200 MG TAB PO SCH ×2 (08:53→22:15)
[2022-07-17] MEDS: DEXTROSE 5%-0.45% NACL 1,000 ML IV SCH ×2 (08:54→15:15)
[2022-07-17] MEDS: bisacodyL 10 MG SUPP RECTAL SCH (08:54)
[2022-07-17] MEDS: hydrALAZINE HCL 50 MG TAB PO SCH (10:27)
[2022-07-17 11:33] LABS: Glucose,Whole Blood 331 mg/dL (70-110)
--- NOTE | 2022-07-17 11:34 | P.PN ---
Subjective Patient seen for atrial fibrillation with RVR Treated with amiodarone and now is in sinus rhythm Resting comfortably in bed no chest discomfort does not appear to be short of breath He does have COPD exacerbation on this admission He does have diabetes On examination blood pressure 123/57 mmHg pulse rate in the 80s Breath sounds are reduced bilaterally scattered rhonchi Heart sounds are soft Plan Continue long-acting verapamil Continue valsartan and DC hydralazine Short term amiodarone therapy for one month and then discontinue Reduce the dose of clonidine patch to TTS 1 Objective - Vital Signs Vital signs: Vital Signs Temp 98.0 F 07/17/22 09:00 Pulse 80 07/17/22 11:23 Resp 16 07/17/22 10:00 BP 123/57 07/17/22 10:00 Pulse Ox 91 L 07/17/22 10:00 FiO2 35 07/17/22 11:06 Intake & Output 07/16/22 07/17/22 07/17/22 18:59 06:59 18:59 Intake Total 1350 50 Output Total 1365 954 200 Balance -15 954 -150 Weight 85.6 kg 79.9 kg Intake: IV 150 50 Dextrose 5%-0.45% NaCl 1, 150 000 ml @ 50 mls/hr IV . Q20H [facility] Rx#:[id number] cefTRIAXone 2 gm In 50 Sodium Chloride 0.9% 50 ml @ 100 mls/hr IVPB Q24HR [facility] Rx#:[id number] Oral 1200 Output: Urine 1365 954 200 Other: Voiding Method Indwelling Catheter Indwelling Catheter Indwelling Catheter # Bowel Movements 0 0 - Labs CBC & Chem 7: 07/17/22 07:32 07/17/22 07:32 Labs: Abnormal Lab Results - Last 24 Hours (Table) 07/16/22 07/16/22 07/17/22 Range/Units 17:28 20:53 02:42 WBC (3.8-10.6) k/uL Neutrophils # (1.3-7.7) k/uL Lymphocytes # (1.0-4.8) k/uL Sodium (137-145) mmol/L Carbon Dioxide (22-30) mmol/L BUN (9-20) mg/dL Creatinine (0.66-1.25) mg/dL Glucose (74-99) mg/dL POC Glucose (mg/dL) 296 H 261 H 136 H (70-110) mg/dL Calcium (8.4-10.2) mg/dL ALT (4-49) U/L Total Protein (6.3-8.2) g/dL Albumin (3.5-5.0) g/dL 07/17/22 07/17/22 07/17/22 Range/Units 07:06 07:32 07:32 WBC 16.4 H (3.8-10.6) k/uL Neutrophils # 15.5 H (1.3-7.7) k/uL Lymphocytes # 0.4 L (1.0-4.8) k/uL Sodium 135 L (137-145) mmol/L Carbon Dioxide 32 H (22-30) mmol/L BUN 52 H (9-20) mg/dL Creatinine 1.29 H (0.66-1.25) mg/dL Glucose 194 H (74-99) mg/dL POC Glucose (mg/dL) 177 H (70-110) mg/dL Calcium 6.7 L (8.4-10.2) mg/dL ALT 69 H (4-49) U/L Total Protein 4.9 L (6.3-8.2) g/dL Albumin 2.7 L (3.5-5.0) g/dL 07/17/22 Range/Units 11:31 WBC (3.8-10.6) k/uL Neutrophils # (1.3-7.7) k/uL Lymphocytes # (1.0-4.8) k/uL Sodium (137-145) mmol/L Carbon Dioxide (22-30) mmol/L BUN (9-20) mg/dL Creatinine (0.66-1.25) mg/dL Glucose (74-99) mg/dL POC Glucose (mg/dL) 331 H (70-110) mg/dL Calcium (8.4-10.2) mg/dL ALT (4-49) U/L Total Protein (6.3-8.2) g/dL Albumin (3.5-5.0) g/dL
--- NOTE | 2022-07-17 11:52 | P.PN ---
Progress Note - Text Progress Note Date: 07/17/22 Patient's is tolerating his diet. His diet is advanced to a regular consistent carbonated diet. He has no significant abdominal pain. On exam vital signs appear stable. Abdomen is soft. Resolved ileus. We will sign off.
[2022-07-17] MEDS ORDERED: cloNIDine 0.1 MG/24HR PATCH TRANSDERM SCH (12:00)
[2022-07-17] MEDS: ALPRAZolam 0.5 MG TAB PO PRN (12:37)
--- NOTE | 2022-07-17 13:45 | P.PN ---
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 Patient tried breathing treatments at home without much relief. Patient was tachycardic on admission with heart rate in 160s and was found to be SVT patient was given Ellenson in the ER. Otherwise denied any complaints of chest pain. No nausea vomiting or abdominal pain. Denied any increased leg swelling. No fever no chills. No prior history of SVT. Chest x-ray showed COPD. No active cardiopulmonary disease. Mild pulmonary fibrotic changes. No significant change. CTA chest showed no evidence of PE. Emphysema and mild pulmonary fibrosis. No suspicious pulmonary mass. Laboratory data showed WBC 16.0 hemoglobin 16.0 and platelets 269 Sodium 139 potassium four-point 102 bicarb is 20 BUN 16 and creatinine 0.87 and lactic acid 2.7 Troponin x1 negative and proBNP is 378 TSH 0.49 6 Coronavirus and influenza AMB not detected. Urinalysis is negative for infection. 07/08/2022 Patient continues to be monitored in intensive care unit mostly on BiPAP support but able to be weaned to 3 to 4 L of oxygen via nasal cannula. He is unsure when he has had bowel movement and has limited to no bowel sounds for this reason abdominal xray has been performed showing mildly distended small bowel loops and some segments of colon as well. Consider generalized ileus and difficult to exclude the possibility of a distal colonic obstruction. White blood cell count today 6.1, sodium 144, potassium 4.6, BUN 40, creatinine 0.99, blood glucose 150, magnesium 2.4. Procalcitonin 0.55. Vitals today, patient is afebrile, heart rate 71, blood pressure 121/64, 95% oxygen saturation. Patient has been maintained on dexmedetomidine for acute anxiety which is currently paused. Continues on IV Solu-Medrol, and bronchodilators. Patient is currently on IV cardizem gtt for tachycardia and will be transitioned to oral verapamil today, cardiology is following. 07/09/2022 Patient continues to be monitored in intensive care unit. White count elevated up to 12.4 today he has expiratory wheezing on exam changed from yesterday. Patient requiring bipap at 35% FiO2 currently. He did have low grade fever this morning 99 and is receiving acetaminophen as needed. chest xray today showing chronic emphysema and pulmonary fibrotic change. Procalcitonin level elevated at 0.55. IV ceftriaxone increased to 2 gram every 24 hours. Patient is continued on bronchodilators. Continues on IV solumedrol 60 mg q6h. Dexmedetomidine possibly being weaned off today, seroquel and haldol ordered with ativan as needed. Patient continues with significant abdominal distention and absent bowel sounds left lower quadrant. Did not receive lactulose yesterday. General surgery was consulted for further evaluation, currently placed NPO for possible ileus /bowel obstruction. He is hypertensive today with systolic in the 180s has been started on verapamil TID and also hydralazine 50 BID. Cardiology following. 07/10/2022 Patient evaluated today on BiPAP, fio2 has been increased to 40%, he is using accessory muscles to breath and appears quite aggitated. He is on combination of haldol, seroquel for this. Additionally, he was started on nicotine patch and clonidine patch. NG tube has been placed, patient has not had a BM. Abdominal Pelvis CT completed showing no CT evidence for small bowel obstruction. Patient also had follow up chest xray today showing COPD changes and no acute disease. Never the less he appears to have some respiratory distress requiring BiPAP. white count 11.7 today, sodium 149, BUN 47, creatinine 1.05, blood glucose 170s. Patient has been placed on amiodarone infusion and also heparin gtt as patient is unable to take oral medications currently. He continues on antibiotics. Continues on IV solumedrol. 07/11/2022 Patient is monitored in intensive care unit. Continues with NG tube. Tube feedings have been resumed with vital AF 1.2 with goal of 55 mls per hour. Currrently running at 20 mLs/hour. Patient has free water flush 30 mL every 4 hours, would like to increase free water and discontinue IV fluids. Sodium level today 148, potassium 4.1, chloride 110, BUN 51, creatinine 1.08. Blood glucose in the 240s and insulin has been increased. Patient is receiving lactulose, had fleet enema today. Has not had a BM this admission, bowel sounds in all 4 quadrants today. Amiodarone has been discontinued. Continues on oral verapamil. Heart rate is improving. Patient trialed on airvo 60/60 today. Chest xray showing no focal consolidation. 07/12/2022 Patient is evaluated in ICU, family at bedside. Continues on Airvo 60/60, reports non productive cough. Diffuse weakness. Abdomen distended seems worse than yesterday. Discussed with surgery. Tube feedings have been placed on hold a nd patient started on daily suppositories. Otherwise continues on empiric ceftriaxone. Chest xray showing COPD with possible underlying pulmonary vascular congestion. Sodium up to 150 today, nephrology consulted. Patient has been started on D5% water at 75 mls per hour. BUN 55 creatinine 1.22 today. Blood glucose 230s. Heart rate 120s today, blood pressure 130/91, remains afebrile. 07/13/2022 Patient continue in Intensive Care unit. Continues on Airvo 60/60. He reports breathing improved today less short of breath. Lung sounds have improved and increased aeration. Less congested. No BM yet, has been started on dulcolax suppository daily. Increased bowel sounds today and abdomen is less distended. Remains on IV ceftriaxone. White count normalized to 9.9. Sodium remains at 150, BUN 51, creatinine 1.21. Blood glucose 200s. hgb A1c found to be 6.5 consistent with diagnosis of diabetes mellitus type 2. Continues on levemir with sliding scale and scheduled novolog coverage. Remains afebrile, heart rate 87, blood pressure 177/91, oxygen saturation 95%. IV steroids have been decreased today. Continues on oral cardizem, oral verapamil. Continues on D5 water at 75 mls per hour. 07/14/2022 Patient continues to be monitored closely in intensive care unit. He continues on Airvo 45/60, has tolerated weaning and continues to report improvement in work of breathing. No wheezing noted on exam today has some coarse scattered ronchi. NG tube remains in place, he did have BM. Will discuss with surgery if NG tube can be discontinued. Will add nystatin swish today which can be applied manually versus swishing. Patient remains diffusely weak has been on bedrest. No breakdown noted on skin. Continues on oral amiodarone, verapamil, anticoagulated with eliquis. Patient has been maintained on empiric antibiotic coverage with IV ceftriaxone, tomorrow will be day 5. white count has normalized consider discontinuing antibiotics tomorrow. Patient is maintaining sinus rhythm today heart rate 80s, blood pressure 159/78, 93% oxygen saturation, has remained afebrile. Labs today are improving, white count remains within normal limits at 10.4, sodium 142, potassium 4.5, chloride normalized to 104, BUN 48, creatinine 1.08. Blood glucose 160s to 200s. IV fluids have been changed to D5 1/2 NS at 50. Repeat labs tomorrow. Multiple consultations following. PT/OT has been consulted. 07/15/22. Patient seen and examined. Daughter at the bedside. Patient continues to be on heated high flow oxygen. States he feels better. Denies any nausea, vomiting. Case discussed with nursing staff 07/16/22. Patient seen and examined. Stated that he had a panic attack this morning, currently doing much better. Breathing is improving. Denies any chest pain. Continues to be on heated high flow 07/17/22. Patient seen and examined. Continues to be on heated high flow. Does not look any acute distress. REVIEW OF SYSTEMS: CONSTITUTIONAL: No fever, no malaise, no fatigue. CARDIOVASCULAR: No chest pain, orthopnea, PND, no palpitations, no syncope. PULMONARY: Complaining of shortness of breath on exertion. no cough, no hemoptysis. GASTROINTESTINAL: No diarrhea, no nausea, no vomiting, no abdominal pain. PHYSICAL EXAMINATION: GENERAL: The patient is alert and oriented x3, not in any acute distress. Well developed, well nourished. HEENT: Pupils are round and equally reacting to light. EOMI. No scleral icterus. No conjunctival pallor. Normocephalic, atraumatic. No pharyngeal erythema. No thyromegaly. CARDIOVASCULAR: S1 and S2 present. No murmurs, rubs, or gallops. PULMONARY: Tachypneic, Diminished breath sounds at the bases bilaterally. No crackles audible ABDOMEN: Soft, nontender, nondistended, normoactive bowel sounds. No palpable organomegaly. MUSCULOSKELETAL: No joint swelling or deformity. EXTREMITIES: No cyanosis, clubbing, or pedal edema. NEUROLOGICAL: Gross neurological examination did not reveal any focal deficits. SKIN: No rashes. Assessment and plan Acute hypoxic respiratory failure on airvo 45/60 Worsening shortness of breath secondary to acute COPD exacerbation and tracheobronchitis SVT Atrial fibrillation with rapid rate converted to normal sinus rhythm Hypertension Hypernatremia, resolved Metabolic acidosis Acute kidney injury Diabetes Mellitus type 2 A1C 6.5. Ileus, resolving BPH Prior history of smoking History of throat cancer and vocal cord status post radiation 2016 Plan: Monitor electrolytes. Continue oxygen supplementation Aggressive pulmonary hygiene Continue long-acting verapamil Continue valsartan and DC hydralazine Short term amiodarone therapy for one month and then discontinue per cardiology Continue eliquis Continue IV Solu-Medrol. Continue breathing treatments Gen. surgery evaluated the patient, recommended bowel regimen, they signed off Follow-up on cardiology recommendations Follow-up on pulmonary recommendations Follow-up in nephrology recommendations Objective - Vital Signs Vital signs: Vital Signs Temp 98.0 F 07/17/22 09:00 Pulse 80 07/17/22 11: Resp 16 07/17/22 10:00 BP 123/57 07/17/22 10:00 Pulse Ox 91 L 07/17/22 10:00 FiO2 35 07/17/22 11:06 Intake & Output 07/16/22 07/17/22 07/17/22 18:59 06:59 18:59 Intake Total 1350 50 Output Total 1365 954 200 Balance -15 -954 -150 Weight 85.6 kg 79.9 kg Intake: IV 150 50 Dextrose 5%-0.45% NaCl 1, 150 000 ml @ 50 mls/hr IV . Q20H [facility] Rx#:[id number] cefTRIAXone 2 gm In 50 Sodium Chloride 0.9% 50 ml @ 100 mls/hr IVPB Q24HR [facility] Rx#:[id number] Oral 1200 Output: Urine 1365 954 200 Other: Voiding Method Indwelling Catheter Indwelling Catheter Indwelling Catheter # Bowel Movements 0 0 - Labs CBC & Chem 7: 07/17/22 07:32 07/17/22 07:32 Labs: Abnormal Lab Results - Last 24 Hours (Table) 07/16/22 07/16/22 07/17/22 Range/Units 17:28 20:53 02:42 WBC (3.8-10.6) k/uL Neutrophils # (1.3-7.7) k/uL Lymphocytes # (1.0-4.8) k/uL Sodium (137-145) mmol/L Carbon Dioxide (22-30) mmol/L BUN (9-20) mg/dL Creatinine (0.66-1.25) mg/dL Glucose (74-99) mg/dL POC Glucose (mg/dL) 296 H 261 H 136 H (70-110) mg/dL Calcium (8.4-10.2) mg/dL ALT (4-49) U/L Total Protein (6.3-8.2) g/dL Albumin (3.5-5.0) g/dL 07/17/22 07/17/22 07/17/22 Range/Units 07:06 07:32 07:32 WBC 16.4 H (3.8-10.6) k/uL Neutrophils # 15.5 H (1.3-7.7) k/uL Lymphocytes # 0.4 L (1.0-4.8) k/uL Sodium 135 L (137-145) mmol/L Carbon Dioxide 32 H (22-30) mmol/L BUN 52 H (9-20) mg/dL Creatinine 1.29 H (0.66-1.25) mg/dL Glucose 194 H (74-99) mg/dL POC Glucose (mg/dL) 177 H (70-110) mg/dL Calcium 6.7 L (8.4-10.2) mg/dL ALT 69 H (4-49) U/L Total Protein 4.9 L (6.3-8.2) g/dL Albumin 2.7 L (3.5-5.0) g/dL 07/17/22 Range/Units 11:31 WBC (3.8-10.6) k/uL Neutrophils # (1.3-7.7) k/uL Lymphocytes # (1.0-4.8) k/uL Sodium (137-145) mmol/L Carbon Dioxide (22-30) mmol/L BUN (9-20) mg/dL Creatinine (0.66-1.25) mg/dL Glucose (74-99) mg/dL POC Glucose (mg/dL) 331 H (70-110) mg/dL Calcium (8.4-10.2) mg/dL ALT (4-49) U/L Total Protein (6.3-8.2) g/dL Albumin (3.5-5.0) g/dL
--- NOTE | 2022-07-17 16:05 | P.PN ---
Subjective Progress Note Date: 07/17/22 This patient is a 66 with COPD, moderately severe, previous history of laryngeal cancer in 2017 treated with radiation therapy and BPH. The patient is currently being seen in the intensive care unit for alcohol withdrawal was and hypoxic respiratory failure. This morning, is awake and alert and there is no significant agitation. He remains on high flow oxygen at 45 L with an FiO2 of 56%. His current pulse ox is around 89%. Note that he had a CT angiogram at time of admission that showed no evidence of any pulmonary embolism. It showed emphysema and mild portal fibrosis. His resting comfortably in bed. He has no significant shortness of breath at rest. The same time, the patient has been in normal sinus rhythm. Noted at the time of admission, he was in atrial fibrillation and he was treated with a Cardizem drip and currently is off the drip. He is also off Precedex for now. Neurologically, he is alert and oriented 3. His most recent chest x-ray from yesterday showing some atelec tatic changes in the lung bases and emphysema. Otherwise no other major abnormalities are noted. In terms of treatment, the patient is currently on DuoNeb about treatments [id number], he is on Pulmicort Respules 1 mg twice a day, he is on IV Solu-Medrol 40 mg every 6 hours. Is also on performance 1 nevertheless treatment twice a day. He is covered with antibiotics and the patient is receiving Rocephin 2 g every 24 hours. His blood cultures from this admission is negative. The white cell count is at 12 with a hemoglobin of 14.7 and a platelet count of 188. BUN is 44 with a creatinine of 1.1 and sodium levels of 137. In terms of his viral screen, the patient had a negative Covid 19 infection. Influenza screen was negative at the time of admission. On today's evaluation of 07/16/2022, the patient remains on high flow oxygen at 45 L with an FiO2 of 50%. The patient is feeling better and less short of breath compared to yesterday. No significant cough or sputum production. The patient was offered an incentive spirometer and the patient is able to generate adequate volumes on the incentive spirometer, nevertheless, the values remain less than 500 mL. The patient is on IV Rocephin. The patient was growing Haemophilus influenza in his sputum. At the same time, the patient remains on bronchodilators and he is on DuoNeb neb blotchiness 4 times a day, he is on a combination of Perforomist and Pulmicort neb less treatments twice a day and IV Solu-Medrol and the doses 40 mg IV every 6 hours. He was started on diuretics and to dose of Lasix will be given to him today. In terms of his blood work, his sodium level is at 137 with a potassium level of 4.4, BUN of 44 with a creatinine of 1.05 with RBC count of 12 a hemoglobin 14.8 and a platelet count of 148. LFTs are essentially within normal limits. On today's evaluation of 07/14/2022, the patient has no specific complaints. The patient is gradually improving. This morning, the patient was weaned down to 40 liters with an FiO2 of 35% high flow oxygen. The patient is otherwise doing well. He is using the incentive spirometer. He is still coughing and his cough is congested. Unable to bring up much sputum. He was diuresis yesterday and he has been negative fluid balance for now. BUN is a 53 with a creatinine of 1.29 his sodium levels is 135. The patient's WBC count is at 16.4 with a hemoglobin of 14.5. Remains on DuoNeb about treatments [id number]. Remains on IV Solu-Medrol. No altered mentation. No chest pain. Remains quite weak and his been having generalized global weakness. He is on Levemir 14 units daily twice a day and the patient is on NovoLog 40 units with meals and a sliding scale coverage. No altered mentation. No other new complaints. Objective - Vital Signs Vital signs: Vital Signs Temp 98.0 F 07/17/22 09:00 Pulse 80 07/17/22 09:00 Resp 24 07/17/22 09:00 BP 100/51 07/17/22 09:00 Pulse Ox 92 L 07/17/22 09:00 FiO2 35 07/17/22 09:00 Intake & Output 07/16/22 07/17/22 07/17/22 18:59 06:59 18:59 Intake Total 1350 50 Output Total 1365 954 140 Balance -15 -954 -90 Weight 85.6 kg 79.9 kg Intake: IV 150 50 Dextrose 5%-0.45% NaCl 1, 150 000 ml @ 50 mls/hr IV . Q20H [facility] Rx#:[id number] cefTRIAXone 2 gm In 50 Sodium Chloride 0.9% 50 ml @ 100 mls/hr IVPB Q24HR [facility] Rx#:[id number] Oral 1200 Output: Urine 1365 954 140 Other: Voiding Method Indwelling Catheter Indwelling Catheter # Bowel Movements 0 0 - Exam No acute distress, much more calm today, currently on AIRVO. HEENT examination is grossly unremarkable. Neck supple. Full range of motion. No adenopathy thyromegaly or neck vein dist ention. Cardiovascular examination reveals regular rhythm rate. S1-S2 normal. No S3 or S4. No discernible murmur noted. Heart sounds are distant. Lungs reveal bilateral coarse inspiratory expiratory rhonchi, and expiratory wheezes. No crackles. Saturations are 90 % on AIRVO. Abdomen soft, without bowel sounds. No masses or tenderness. Extremities are intact. No cyanosis clubbing or edema. Skin is without rash or lesion.Examination of the skin revealed no evidence of significant rashes, suspicious appearing nevi or other concerning lesions. Neurologic examination Neurologically, the patient is awake and alert and the patient does not have any focal neurological deficit. Cranial nerves are essentially intact. - Labs CBC & Chem 7: 07/17/22 07:32 07/17/22 07:32 Labs: Abnormal Lab Results - Last 24 Hours (Table) 07/16/22 07/16/22 07/16/22 Range/Units 11:13 17:28 20:53 WBC (3.8-10.6) k/uL Neutrophils # (1.3-7.7) k/uL Lymphocytes # (1.0-4.8) k/uL Sodium (137-145) mmol/L Carbon Dioxide (22-30) mmol/L BUN (9-20) mg/dL Creatinine (0.66-1.25) mg/dL Glucose (74-99) mg/dL POC Glucose (mg/dL) 278 H 296 H 261 H (70-110) mg/dL Calcium (8.4-10.2) mg/dL ALT (4-49) U/L Total Protein (6.3-8.2) g/dL Albumin (3.5-5.0) g/dL 07/17/22 07/17/22 07/17/22 Range/Units 02:42 07:06 07:32 WBC 16.4 H (3.8-10.6) k/uL Neutrophils # 15.5 H (1.3-7.7) k/uL Lymphocytes # 0.4 L (1.0-4.8) k/uL Sodium (137-145) mmol/L Carbon Dioxide (22-30) mmol/L BUN (9-20) mg/dL Creatinine (0.66-1.25) mg/dL Glucose (74-99) mg/dL POC Glucose (mg/dL) 136 H 177 H (70-110) mg/dL Calcium (8.4-10.2) mg/dL ALT (4-49) U/L Total Protein (6.3-8.2) g/dL Albumin (3.5-5.0) g/dL 07/17/22 Range/Units 07:32 WBC (3.8-10.6) k/uL Neutrophils # (1.3-7.7) k/uL Lymphocytes # (1.0-4.8) k/uL Sodium 135 L (137-145) mmol/L Carbon Dioxide 32 H (22-30) mmol/L BUN 52 H (9-20) mg/dL Creatinine 1.29 H (0.66-1.25) mg/dL Glucose 194 H (74-99) mg/dL POC Glucose (mg/dL) (70-110) mg/dL Calcium 6.7 L (8.4-10.2) mg/dL ALT 69 H (4-49) U/L Total Protein 4.9 L (6.3-8.2) g/dL Albumin 2.7 L (3.5-5.0) g/dL Assessment and Plan Plan: Acute hypoxemic respiratory failure secondary to COPD exacerbation and the patient presented with acute hypoxic and hypercapnic respiratory failure. Most recent blood gases from 07/10/2022 showed improvement in the acid base status. He was on BiPAP and subsequently was switched to high flow oxygen. Oxygenation is an ongoing issue. Chest x-ray showing atelectatic changes a lung base bilaterally. The patient remains on high flow oxygen with 40 L with an FiO2 of 35% Severe COPD and the patient has an FEV1 of 39% of predicted at baseline and this is based on spirometry that was done on 09/28/2020. The patient has been maintained on Advair and DuoNeb about treatments [id number].. Possible acute withdrawal, from either tobacco and/or alcohol. Acute tracheobronchitis. Supraventricular tachycardia/atrial fibrillation with RVR. Patient is currently on normal sinus rhythm. The patient is also on anticoagulation with Eliquis. The patient has a normal LV function Acute hypernatremia, recovered History of laryngeal carcinoma, in remission, status post radiation treatment, diagnosed in 2017. Acute hypercapnic respiratory failure secondary to severe COPD. Plan Recommended further weaning of the flow and the patient may ultimately go down to 50 L and 40 today. Continue same treatment with a combination of bronchodilators and steroids and incentive spirometer Clinically improving Hemodynamically stable Deep breathing and pulmonary toileting Wean down FiO2 as tolerated to maintain a saturation above 90% Most recent chest x-ray showing essentially atelectatic changes in lung bases bilaterally and the most recent CAT scan of the abdomen and pelvis showed no significant intra-abdominal abnormalities. No evidence of any bowel obstruction most recent CAT scan of the chest showed no evidence of any pulmonary embolism Long-term prognosis poor based above-mentioned I will continue to follow. The priority is to improve the patient's vaccination for now. Aggressive use of incentive spirometer. We'll continue to follow.
[2022-07-17 16:39] LABS: Glucose,Whole Blood 278 mg/dL (70-110)
[2022-07-17 20:48] LABS: Glucose,Whole Blood 71 mg/dL (70-110)
[2022-07-17] MEDS: VALSARTAN 80 MG TAB PO SCH (22:15)
[2022-07-17] MEDS: ATORVASTATIN 10 MG TAB PO SCH (22:16)
[2022-07-18 03:26] LABS: Glucose,Whole Blood 201 mg/dL (70-110)
[2022-07-18] MEDS: methylPREDNISolone SOD SUCCI 40 MG/ML 1 ML VIAL IV SCH ×4 (03:29→21:46)
[2022-07-18] MEDS: ALPRAZolam 0.5 MG TAB PO PRN ×2 (03:30→22:44)
[2022-07-18 06:19] LABS: Glucose,Whole Blood 212 mg/dL (70-110)
[2022-07-18] MEDS: INSULIN ASPART (NovoLOG) 100 UNIT/ML VIAL SQ SCH ×8 (07:15→21:38)
[2022-07-18] MEDS: FORMOTEROL FUMARATE 20 MCG/2 ML NEBU INHALATION SCH ×2 (08:12→20:35)
[2022-07-18] MEDS: BUDESONIDE 1 MG/2 ML NEBU INHALATION SCH ×2 (08:12→20:36)
[2022-07-18] MEDS: IPRATROPIUM-ALBUTEROL 3 ML NEB INHALATION SCH ×4 (08:12→20:36)
[2022-07-18] MEDS: APIXABAN 5 MG TAB PO SCH ×2 (09:06→21:45)
[2022-07-18] MEDS: FAMOTIDINE 20 MG/2 ML VIAL IV SCH ×2 (09:06→21:46)
[2022-07-18] MEDS: bisacodyL 10 MG SUPP RECTAL SCH (09:06)
[2022-07-18] MEDS: AMIODARONE 200 MG TAB PO SCH ×2 (09:06→21:45)
[2022-07-18] MEDS: INSULIN DETEMIR (LEVEMIR) 100 UNIT/ML SYR SQ SCH ×2 (09:08→21:46)
[2022-07-18] MEDS: NYSTATIN 100,000 UNIT/ML SUSP 500,000 UNIT/5 ML CUP PO SCH ×4 (09:08→21:46)
[2022-07-18 10:48] LABS: African American GFR (CKD) 56 (>60 ml/min/1.73 sqM); Anion Gap 7 mmol/L; Blood Urea Nitrogen 70 mg/dL (9-20); Calcium 6.6 mg/dL (8.4-10.2); Carbon Dioxide 27 mmol/L (22-30); Chloride 100 mmol/L (98-107); Glucose 137 mg/dL (74-99); Non-African American GFR(CKD) 49 (>60 ml/min/1.73 sqM); Potassium 4.6 mmol/L (3.5-5.1); Sodium 134 mmol/L (137-145)
[2022-07-18 12:20] LABS: Glucose,Whole Blood 172 mg/dL (70-110)
[2022-07-18] MEDS: VERAPAMIL SR 240 MG TABLET.ER PO SCH (13:42)
--- NOTE | 2022-07-18 14:10 | P.PN ---
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 Patient tried breathing treatments at home without much relief. Patient was tachycardic on admission with heart rate in 160s and was found to be SVT patient was given Ellenson in the ER. Otherwise denied any complaints of chest pain. No nausea vomiting or abdominal pain. Denied any increased leg swelling. No fever no chills. No prior history of SVT. Chest x-ray showed COPD. No active cardiopulmonary disease. Mild pulmonary fibrotic changes. No significant change. CTA chest showed no evidence of PE. Emphysema and mild pulmonary fibrosis. No suspicious pulmonary mass. Laboratory data showed WBC 16.0 hemoglobin 16.0 and platelets 269 Sodium 139 potassium four-point 102 bicarb is 20 BUN 16 and creatinine 0.87 and lactic acid 2.7 Troponin x1 negative and proBNP is 378 TSH 0.49 6 Coronavirus and influenza AMB not detected. Urinalysis is negative for infection. 07/08/2022 Patient continues to be monitored in intensive care unit mostly on BiPAP support but able to be weaned to 3 to 4 L of oxygen via nasal cannula. He is unsure when he has had bowel movement and has limited to no bowel sounds for this reason abdominal xray has been performed showing mildly distended small bowel loops and some segments of colon as well. Consider generalized ileus and difficult to exclude the possibility of a distal colonic obstruction. White blood cell count today 6.1, sodium 144, potassium 4.6, BUN 40, creatinine 0.99, blood glucose 150, magnesium 2.4. Procalcitonin 0.55. Vitals today, patient is afebrile, heart rate 71, blood pressure 121/64, 95% oxygen saturation. Patient has been maintained on dexmedetomidine for acute anxiety which is currently paused. Continues on IV Solu-Medrol, and bronchodilators. Patient is currently on IV cardizem gtt for tachycardia and will be transitioned to oral verapamil today, cardiology is following. 07/09/2022 Patient continues to be monitored in intensive care unit. White count elevated up to 12.4 today he has expiratory wheezing on exam changed from yesterday. Patient requiring bipap at 35% FiO2 currently. He did have low grade fever this morning 99 and is receiving acetaminophen as needed. chest xray today showing chronic emphysema and pulmonary fibrotic change. Procalcitonin level elevated at 0.55. IV ceftriaxone increased to 2 gram every 24 hours. Patient is continued on bronchodilators. Continues on IV solumedrol 60 mg q6h. Dexmedetomidine possibly being weaned off today, seroquel and haldol ordered with ativan as needed. Patient continues with significant abdominal distention and absent bowel sounds left lower quadrant. Did not receive lactulose yesterday. General surgery was consulted for further evaluation, currently placed NPO for possible ileus /bowel obstruction. He is hypertensive today with systolic in the 180s has been started on verapamil TID and also hydralazine 50 BID. Cardiology following. 07/10/2022 Patient evaluated today on BiPAP, fio2 has been increased to 40%, he is using accessory muscles to breath and appears quite aggitated. He is on combination of haldol, seroquel for this. Additionally, he was started on nicotine patch and clonidine patch. NG tube has been placed, patient has not had a BM. Abdominal Pelvis CT completed showing no CT evidence for small bowel obstruction. Patient also had follow up chest xray today showing COPD changes and no acute disease. Never the less he appears to have some respiratory distress requiring BiPAP. white count 11.7 today, sodium 149, BUN 47, creatinine 1.05, blood glucose 170s. Patient has been placed on amiodarone infusion and also heparin gtt as patient is unable to take oral medications currently. He continues on antibiotics. Continues on IV solumedrol. 07/11/2022 Patient is monitored in intensive care unit. Continues with NG tube. Tube feedings have been resumed with vital AF 1.2 with goal of 55 mls per hour. Currrently running at 20 mLs/hour. Patient has free water flush 30 mL every 4 hours, would like to increase free water and discontinue IV fluids. Sodium level today 148, potassium 4.1, chloride 110, BUN 51, creatinine 1.08. Blood glucose in the 240s and insulin has been increased. Patient is receiving lactulose, had fleet enema today. Has not had a BM this admission, bowel sounds in all 4 quadrants today. Amiodarone has been discontinued. Continues on oral verapamil. Heart rate is improving. Patient trialed on airvo 60/60 today. Chest xray showing no focal consolidation. 07/12/2022 Patient is evaluated in ICU, family at bedside. Continues on Airvo 60/60, reports non productive cough. Diffuse weakness. Abdomen distended seems worse than yesterday. Discussed with surgery. Tube feedings have been placed on hold a nd patient started on daily suppositories. Otherwise continues on empiric ceftriaxone. Chest xray showing COPD with possible underlying pulmonary vascular congestion. Sodium up to 150 today, nephrology consulted. Patient has been started on D5% water at 75 mls per hour. BUN 55 creatinine 1.22 today. Blood glucose 230s. Heart rate 120s today, blood pressure 130/91, remains afebrile. 07/13/2022 Patient continue in Intensive Care unit. Continues on Airvo 60/60. He reports breathing improved today less short of breath. Lung sounds have improved and increased aeration. Less congested. No BM yet, has been started on dulcolax suppository daily. Increased bowel sounds today and abdomen is less distended. Remains on IV ceftriaxone. White count normalized to 9.9. Sodium remains at 150, BUN 51, creatinine 1.21. Blood glucose 200s. hgb A1c found to be 6.5 consistent with diagnosis of diabetes mellitus type 2. Continues on levemir with sliding scale and scheduled novolog coverage. Remains afebrile, heart rate 87, blood pressure 177/91, oxygen saturation 95%. IV steroids have been decreased today. Continues on oral cardizem, oral verapamil. Continues on D5 water at 75 mls per hour. 07/14/2022 Patient continues to be monitored closely in intensive care unit. He continues on Airvo 45/60, has tolerated weaning and continues to report improvement in work of breathing. No wheezing noted on exam today has some coarse scattered ronchi. NG tube remains in place, he did have BM. Will discuss with surgery if NG tube can be discontinued. Will add nystatin swish today which can be applied manually versus swishing. Patient remains diffusely weak has been on bedrest. No breakdown noted on skin. Continues on oral amiodarone, verapamil, anticoagulated with eliquis. Patient has been maintained on empiric antibiotic coverage with IV ceftriaxone, tomorrow will be day 5. white count has normalized consider discontinuing antibiotics tomorrow. Patient is maintaining sinus rhythm today heart rate 80s, blood pressure 159/78, 93% oxygen saturation, has remained afebrile. Labs today are improving, white count remains within normal limits at 10.4, sodium 142, potassium 4.5, chloride normalized to 104, BUN 48, creatinine 1.08. Blood glucose 160s to 200s. IV fluids have been changed to D5 1/2 NS at 50. Repeat labs tomorrow. Multiple consultations following. PT/OT has been consulted. 07/15/22. Patient seen and examined. Daughter at the bedside. Patient continues to be on heated high flow oxygen. States he feels better. Denies any nausea, vomiting. Case discussed with nursing staff 07/16/22. Patient seen and examined. Stated that he had a panic attack this morning, currently doing much better. Breathing is improving. Denies any chest pain. Continues to be on heated high flow 07/17/22. Patient seen and examined. Continues to be on heated high flow. Does not look any acute distress. 07/18/22. Patient seen and examined. Patient is transferred out of ICU. Currently on 4 L of oxygen. Gets short of breath on exertion. Otherwise patient is doing better compared to yesterday REVIEW OF SYSTEMS: CONSTITUTIONAL: No fever, no malaise, no fatigue. CARDIOVASCULAR: No chest pain, orthopnea, PND, no palpitations, no syncope. PULMONARY: Complaining of shortness of breath on exertion. no cough, no hemoptysis. GASTROINTESTINAL: No diarrhea, no nausea, no vomiting, no abdominal pain. PHYSICAL EXAMINATION: GENERAL: The patient is alert and oriented x3, not in any acute distress. Well developed, well nourished. HEENT: Pupils are round and equally reacting to light. EOMI. No scleral icterus. No conjunctival pallor. Normocephalic, atraumatic. No pharyngeal erythema. No thyromegaly. CARDIOVASCULAR: S1 and S2 present. No murmurs, rubs, or gallops. PULMONARY: Tachypneic, Diminished breath sounds at the bases bilaterally. No crackles audible ABDOMEN: Soft, nontender, nondistended, normoactive bowel sounds. No palpable organomegaly. MUSCULOSKELETAL: No joint swelling or deformity. EXTREMITIES: No cyanosis, clubbing, or pedal edema. NEUROLOGICAL: Gross neurological examination did not reveal any focal deficits. SKIN: No rashes. Assessment and plan Acute hypoxic respiratory failure on airvo 45/60 Worsening shortness of breath secondary to acute COPD exacerbation and tracheobronchitis SVT Atrial fibrillation with rapid rate converted to normal sinus rhythm Hypertension Hypernatremia, resolved Metabolic acidosis Acute kidney injury Diabetes Mellitus type 2 A1C 6.5. Ileus, resolving BPH Prior history of smoking History of throat cancer and vocal cord status post radiation 2016 Plan: Monitor electrolytes. Continue oxygen supplementation Aggressive pulmonary hygiene DC Rojas Continue long-acting verapamil Continue valsartan Short term amiodarone therapy for one month and then discontinue per cardiology Continue eliquis Continue IV Solu-Medrol. Continue breathing treatments Gen. surgery evaluated the patient, recommended bowel regimen, they signed off Follow-up on cardiology recommendations Follow-up on pulmonary recommendations Follow-up in nephrology recommendations Objective - Vital Signs Vital signs: Vital Signs Temp 97.7 F 07/18/22 08:00 Pulse 96 07/18/22 13:46 Resp 18 07/18/22 08:00 BP 111/71 07/18/22 13:46 Pulse Ox 97 07/18/22 09:19 FiO2 35 07/17/22 11:06 Intake & Output 07/17/22 07/18/22 07/18/22 18:59 06:59 18:59 Intake Total 50 Output Total 425 650 Balance -375 -650 Weight 95.5 kg Intake: IV 50 cefTRIAXone 2 gm In 50 Sodium Chloride 0.9% 50 ml @ 100 mls/hr IVPB Q24HR [facility] Rx#:[id number] Output: Urine 425 650 Other: Voiding Method Indwelling Catheter Indwelling Catheter - Labs CBC & Chem 7: 07/17/22 07:32 07/18/22 09:40 Labs: Abnormal Lab Results - Last 24 Hours (Table) 07/17/22 07/18/22 07/18/22 Range/Units 16:37 03:25 06:17 Sodium (137-145) mmol/L BUN (9-20) mg/dL Creatinine (0.66-1.25) mg/dL Glucose (74-99) mg/dL POC Glucose (mg/dL) 278 H 201 H 212 H (70-110) mg/dL Calcium (8.4-10.2) mg/dL 07/18/22 07/18/22 Range/Units 09:40 12:18 Sodium 134 L (137-145) mmol/L BUN 70 H (9-20) mg/dL Creatinine 1.46 H (0.66-1.25) mg/dL Glucose 137 H (74-99) mg/dL POC Glucose (mg/dL) 172 H (70-110) mg/dL Calcium 6.6 L (8.4-10.2) mg/dL
--- NOTE | 2022-07-18 15:32 | P.PN ---
Subjective The patient is a 66-year-old male who is currently admitted to the hospital with COPD exacerbation. During his hospital admission he developed A. fib with RVR. He was started on amiodarone and has maintained sinus rhythm over the last 24 hours. Echocardiogram showed preserved LV function with small pericardial effusion. The patient was interviewed and examined resting comfortably in bed. He states he feels well at rest and denies any current dyspnea, orthopnea, or chest discomfort. 07/18 Patient seen and examined. Patient denies any chest pain or pressure. Creatinine increased up to 1.46. Blood pressure is borderline however mainly in the low 100s. GENERAL: Well-appearing, well-nourished and in no acute distress. NECK: Supple without JVD or thyromegaly. LUNGS: Breath sounds diminished to auscultation bilaterally. Respiration equal and unlabored. Bilateral rhonchi. HEART: Regular pulse. S1 and S2. No murmurs, rubs, or gallops. EXTREMITIES: Normal range of motion, no edema. No clubbing or cyanosis. Peripheral pulses intact and strong. VITALS: Vitals reviewed TELEMETRY: Sinus rhythm with heart rate in the 60-90's. IMPRESSION: Acute on chronic respiratory failure, COPD exacerbation Paroxysmal atrial fibrillation, currently in sinus rhythm Hypertension Diabetes mellitus, hemoglobin A1c 6.5 History of laryngeal cancer History of heart failure Hematuria PLAN: Continue long-acting verapamil as well as valsartan and continue to hold hydralazine. Borderline blood pressures with some acute kidney injury and therefore stop clonidine patch entirely. Continue amio for 1 month and decrease to 200mg daily 07/24. No further recommendations from a cardiology standpoint. Please call with any questions. Objective - Vital Signs Vital signs: Vital Signs Temp 97.7 F 07/18/22 08:00 Pulse 96 07/18/22 13:46 Resp 18 07/18/22 08:00 BP 111/71 07/18/22 13:46 Pulse Ox 97 07/18/22 09:19 FiO2 35 07/17/22 11:06 Intake & Output 07/17/22 07/18/22 07/18/22 18:59 06:59 18:59 Intake Total 50 Output Total 425 650 Balance -375 -650 Weight 95.5 kg Intake: IV 50 cefTRIAXone 2 gm In 50 Sodium Chloride 0.9% 50 ml @ 100 mls/hr IVPB Q24HR [facility] Rx#:[id number] Output: Urine 425 650 Other: Voiding Method Indwelling Catheter Indwelling Catheter - Labs CBC & Chem 7: 07/17/22 07:32 07/18/22 09:40 Labs: Abnormal Lab Results - Last 24 Hours (Table) 07/17/22 07/18/22 07/18/22 Range/Units 16:37 03:25 06:17 Sodium (137-145) mmol/L BUN (9-20) mg/dL Creatinine (0.66-1.25) mg/dL Glucose (74-99) mg/dL POC Glucose (mg/dL) 278 H 201 H 212 H (70-110) mg/dL Calcium (8.4-10.2) mg/dL 07/18/22 07/18/22 Range/Units 09:40 12:18 Sodium 134 L (137-145) mmol/L BUN 70 H (9-20) mg/dL Creatinine 1.46 H (0.66-1.25) mg/dL Glucose 137 H (74-99) mg/dL POC Glucose (mg/dL) 172 H (70-110) mg/dL Calcium 6.6 L (8.4-10.2) mg/dL
[2022-07-18 16:21] LABS: Glucose,Whole Blood 222 mg/dL (70-110)
--- NOTE | 2022-07-18 16:43 | P.PN ---
Subjective Progress Note Date: 07/18/22 This patient is a 66 with COPD, moderately severe, previous history of laryngeal cancer in 2017 treated with radiation therapy and BPH. The patient is currently being seen in the intensive care unit for alcohol withdrawal was and hypoxic respiratory failure. This morning, is awake and alert and there is no significant agitation. He remains on high flow oxygen at 45 L with an FiO2 of 56%. His current pulse ox is around 89%. Note that he had a CT angiogram at time of admission that showed no evidence of any pulmonary embolism. It showed emphysema and mild portal fibrosis. His resting comfortably in bed. He has no significant shortness of breath at rest. The same time, the patient has been in normal sinus rhythm. Noted at the time of admission, he was in atrial fibrillation and he was treated with a Cardizem drip and currently is off the drip. He is also off Precedex for now. Neurologically, he is alert and oriented 3. His most recent chest x-ray from yesterday showing some atelec tatic changes in the lung bases and emphysema. Otherwise no other major abnormalities are noted. In terms of treatment, the patient is currently on DuoNeb about treatments [id number], he is on Pulmicort Respules 1 mg twice a day, he is on IV Solu-Medrol 40 mg every 6 hours. Is also on performance 1 nevertheless treatment twice a day. He is covered with antibiotics and the patient is receiving Rocephin 2 g every 24 hours. His blood cultures from this admission is negative. The white cell count is at 12 with a hemoglobin of 14.7 and a platelet count of 188. BUN is 44 with a creatinine of 1.1 and sodium levels of 137. In terms of his viral screen, the patient had a negative Covid 19 infection. Influenza screen was negative at the time of admission. On today's evaluation of 07/16/2022, the patient remains on high flow oxygen at 45 L with an FiO2 of 50%. The patient is feeling better and less short of breath compared to yesterday. No significant cough or sputum production. The patient was offered an incentive spirometer and the patient is able to generate adequate volumes on the incentive spirometer, nevertheless, the values remain less than 500 mL. The patient is on IV Rocephin. The patient was growing Haemophilus influenza in his sputum. At the same time, the patient remains on bronchodilators and he is on DuoNeb neb blotchiness 4 times a day, he is on a combination of Perforomist and Pulmicort neb less treatments twice a day and IV Solu-Medrol and the doses 40 mg IV every 6 hours. He was started on diuretics and to dose of Lasix will be given to him today. In terms of his blood work, his sodium level is at 137 with a potassium level of 4.4, BUN of 44 with a creatinine of 1.05 with RBC count of 12 a hemoglobin 14.8 and a platelet count of 148. LFTs are essentially within normal limits. On today's evaluation of 07/17/2022, the patient has no specific complaints. The patient is gradually improving. This morning, the patient was weaned down to 40 liters with an FiO2 of 35% high flow oxygen. The patient is otherwise doing well. He is using the incentive spirometer. He is still coughing and his cough is congested. Unable to bring up much sputum. He was diuresis yesterday and he has been negative fluid balance for now. BUN is a 53 with a creatinine of 1.29 his sodium levels is 135. The patient's WBC count is at 16.4 with a hemoglobin of 14.5. Remains on DuoNeb about treatments [id number]. Remains on IV Solu-Medrol. No altered mentation. No chest pain. Remains quite weak and his been having generalized global weakness. He is on Levemir 14 units daily twice a day and the patient is on NovoLog 40 units with meals and a sliding scale coverage. No altered mentation. No other new complaints. 07/18/2022, patient is doing well. The patient has been taken off the high flow oxygen the patient is currently on 4 L of O2 nasal cannula. No new complaints. IV Solu-Medrol was then tapered down to 20 mg every 8 hours. Limited cough. No significant congestion. So bronchospastic and wheezy. Air entry is quite limited in the lung bases bilaterally. He has advanced COPD.Transferred out of the intensive care unit yesterday. He is using the incentive spirometer. On his blood work, the patient has a white cell count of 8.9 with a hemoglobin of 12.4 count of 264. The patient has a BUN of 17 with a creatinine of 0.6 and his sodium level is 145. LFTs are normal. Objective - Vital Signs Vital signs: Vital Signs Temp 97.7 F 07/18/22 08:00 Pulse 96 07/18/22 13:46 Resp 18 07/18/22 08:00 BP 111/71 07/18/22 13:46 Pulse Ox 97 07/18/22 09:19 FiO2 35 07/17/22 11:06 Intake & Output 07/17/22 07/18/22 07/18/22 18:59 06:59 18:59 Intake Total 50 Output Total 425 650 Balance -375 -650 Weight 95.5 kg Intake: IV 50 cefTRIAXone 2 gm In 50 Sodium Chloride 0.9% 50 ml @ 100 mls/hr IVPB Q24HR [facility] Rx#:[id number] Output: Urine 425 650 Other: Voiding Method Indwelling Catheter Indwelling Catheter - Exam No acute distress, much more calm today, currently on AIRVO. HEENT examination is grossly unremarkable. Neck supple. Full range of motion. No adenopathy thyromegaly or neck vein distention. Cardiovascular examination reveals regular rhythm rate. S1-S2 normal. No S3 or S4. No discernible murmur noted. Heart sounds are distant. Lungs reveal bilateral coarse inspiratory expiratory rhonchi, and expiratory wheezes. No crackles. Saturations are 90 % on AIRVO. Abdomen soft, without bowel sounds. No masses or tenderness. Extremities are intact. No cyanosis clubbing or edema. Skin is without rash or lesion.Examination of the skin revealed no evidence of significant rashes, suspicious appearing nevi or other concerning lesions. Neurologic examination Neurologically, the patient is awake and alert and the p atient does not have any focal neurological deficit. Cranial nerves are essentially intact. - Labs CBC & Chem 7: 07/17/22 07:32 07/18/22 09:40 Labs: Abnormal Lab Results - Last 24 Hours (Table) 07/18/22 07/18/22 07/18/22 Range/Units 03:25 06:17 09:40 Sodium 134 L (137-145) mmol/L BUN 70 H (9-20) mg/dL Creatinine 1.46 H (0.66-1.25) mg/dL Glucose 137 H (74-99) mg/dL POC Glucose (mg/dL) 201 H 212 H (70-110) mg/dL Calcium 6.6 L (8.4-10.2) mg/dL 07/18/22 07/18/22 Range/Units 12:18 16:19 Sodium (137-145) mmol/L BUN (9-20) mg/dL Creatinine (0.66-1.25) mg/dL Glucose (74-99) mg/dL POC Glucose (mg/dL) 172 H 222 H (70-110) mg/dL Calcium (8.4-10.2) mg/dL Assessment and Plan Plan: Acute hypoxemic respiratory failure secondary to COPD exacerbation and the patient presented with acute hypoxic and hypercapnic respiratory failure. Most recent blood gases from 07/10/2022 showed improvement in the acid base status. He was on BiPAP and subsequently was switched to high flow oxygen. Oxygenation has improved. Chest x-ray showing atelectatic changes a lung base bilaterally. The patient remains on 4 liters nasal cannula and he was taken off the high flow oxygen. Severe COPD and the patient has an FEV1 of 39% of predicted at baseline and this is based on spirometry that was done on 09/28/2020. The patient has been maintained on Advair and DuoNeb about treatments [id number].. Possible acute withdrawal, from either tobacco and/or alcohol. Acute tracheobronchitis. Supraventricular tachycardia/atrial fibrillation with RVR. Patient is currently on normal sinus rhythm. The patient is also on anticoagulation with Eliquis. The patient has a normal LV function Acute hypernatremia, recovered History of laryngeal carcinoma, in remission, status post radiation treatment, diagnosed in 2017. Acute hypercapnic respiratory failure secondary to severe COPD. Plan Recommended further weaning of the flow and the patient is currently on 4 L of oxygen by nasal cannula Transferred out of the intensive care unit Solu-Medrol has been tapered Continue same treatment with a combination of bronchodilators and steroids and incentive spirometer Clinically improving Hemodynamically stable Deep breathing and pulmonary toileting Wean down FiO2 as tolerated to maintain a saturation above 90% Most recent chest x-ray showing essentially atelectatic changes in lung bases bilaterally and the most recent CAT scan of the abdomen and pelvis showed no significant intra-abdominal abnormalities. No evidence of any bowel obstruction most recent CAT scan of the chest showed no evidence of any pulmonary embolism Long-term prognosis poor based above-mentioned I will continue to follow. The priority is to improve the patient's vaccination for now. Aggressive use of i ncentive spirometer. We'll continue to follow.
[2022-07-18 20:40] LABS: Glucose,Whole Blood 106 mg/dL (70-110)
[2022-07-18] MEDS: VALSARTAN 80 MG TAB PO SCH (21:46)
[2022-07-18] MEDS: ATORVASTATIN 10 MG TAB PO SCH (21:46)
[2022-07-19 01:46] LABS: Glucose,Whole Blood 275 mg/dL (70-110)
[2022-07-19] MEDS: methylPREDNISolone SOD SUCCI 40 MG/ML 1 ML VIAL IV SCH ×4 (03:29→21:31)
[2022-07-19 05:48] LABS: Glucose,Whole Blood 225 mg/dL (70-110)
[2022-07-19] MEDS: INSULIN DETEMIR (LEVEMIR) 100 UNIT/ML SYR SQ SCH ×2 (06:39→21:31)
[2022-07-19] MEDS: INSULIN ASPART (NovoLOG) 100 UNIT/ML VIAL SQ SCH ×8 (06:39→21:31)
[2022-07-19 07:43] LABS: Basophils % (A) 0 %; Eosinophils % (A) 0 %; HCT 39.1 % (39.0-53.0); HGB 13.3 gm/dL (13.0-17.5); Lymphocytes # (A) 0.3 k/uL (1.0-4.8); Lymphocytes % (A) 2 %; MCH 30.9 pg (25.0-35.0); MCHC 33.9 g/dL (31.0-37.0); MCV 91.3 fL (80.0-100.0); Mean Platelet Volume 8.6; Monocytes # (A) 0.6 k/uL (0-1.0); Monocytes % (A) 3 %; Neutrophils # (A) 16.4 k/uL (1.3-7.7); Neutrophils % (A) 94 %; Platelet Count 202 k/uL (150-450); RBC 4.29 m/uL (4.30-5.90); RDW 12.2 % (11.5-15.5); WBC 17.5 k/uL (3.8-10.6)
[2022-07-19 08:08] LABS: ALT 56 U/L (4-49); AST 31 U/L (17-59); African American GFR (CKD) 41 (>60 ml/min/1.73 sqM); Albumin 2.4 g/dL (3.5-5.0); Albumin/Globulin Ratio 1.2; Alkaline Phosphatase 60 U/L (38-126); Anion Gap 5 mmol/L; Blood Urea Nitrogen 80 mg/dL (9-20); Calcium 6.5 mg/dL (8.4-10.2); Carbon Dioxide 29 mmol/L (22-30); Chloride 100 mmol/L (98-107); Glucose 212 mg/dL (74-99); Non-African American GFR(CKD) 35 (>60 ml/min/1.73 sqM); Potassium 4.8 mmol/L (3.5-5.1); Sodium 134 mmol/L (137-145); Total Bilirubin 0.7 mg/dL (0.2-1.3); Total Protein 4.4 g/dL (6.3-8.2)
[2022-07-19] MEDS: IPRATROPIUM-ALBUTEROL 3 ML NEB INHALATION SCH ×4 (08:36→20:20)
[2022-07-19] MEDS: BUDESONIDE 1 MG/2 ML NEBU INHALATION SCH ×2 (08:36→20:19)
[2022-07-19] MEDS: FORMOTEROL FUMARATE 20 MCG/2 ML NEBU INHALATION SCH ×2 (08:36→20:19)
[2022-07-19] MEDS: FAMOTIDINE 20 MG/2 ML VIAL IV SCH (08:36)
[2022-07-19] MEDS: APIXABAN 5 MG TAB PO SCH ×2 (09:08→21:32)
[2022-07-19] MEDS: bisacodyL 10 MG SUPP RECTAL SCH (09:09)
[2022-07-19] MEDS: VERAPAMIL SR 240 MG TABLET.ER PO SCH (09:09)
[2022-07-19] MEDS: AMIODARONE 200 MG TAB PO SCH ×2 (09:09→21:32)
[2022-07-19] MEDS: NYSTATIN 100,000 UNIT/ML SUSP 500,000 UNIT/5 ML CUP PO SCH ×4 (09:09→21:32)
[2022-07-19 10:31] LABS: Glucose,Whole Blood 84 mg/dL (70-110)
--- NOTE | 2022-07-19 12:00 | P.PN ---
Subjective Nephrology was reconsulted due to acute kidney injury. Last few days patient renal function has worsened with creatinine up to 1.91 today. Patient's blood pressure has been stable but slightly in the lower side. Patient was started on multiple antihypertensives including Diovan, Catapres and verapamil recently. He is currently resting in bed. Oral intake is fair. He is on dysphagia 3 chopped diet. Has been voiding. Vital signs are stable. General: Awake. No acute distress. HEENT: Head exam is unremarkable. LUNGS: Breath sounds decreased. HEART: Rate and Rhythm are regular. ABDOMEN: Soft, nontender. EXTREMITITES: Trace edema. Objective - Vital Signs Vital signs: Vital Signs Temp 98.3 F 07/19/22 07:33 Pulse 73 07/19/22 09:00 Resp 17 07/19/22 07:33 BP 120/67 07/19/22 07:33 Pulse Ox 92 L 07/19/22 07:33 FiO2 35 07/17/22 11:06 Intake & Output 07/18/22 07/19/22 07/19/22 18:59 06:59 18:59 Other: # Voids 1 6 - Labs CBC & Chem 7: 07/19/22 06:54 07/19/22 06:54 Labs: Abnormal Lab Results - Last 24 Hours (Table) 07/18/22 07/18/22 07/19/22 Range/Units 12:18 16:19 01:45 WBC (3.8-10.6) k/uL RBC (4.30-5.90) m/uL Neutrophils # (1.3-7.7) k/uL Lymphocytes # (1.0-4.8) k/uL Sodium (137-145) mmol/L BUN (9-20) mg/dL Creatinine (0.66-1.25) mg/dL Glucose (74-99) mg/dL POC Glucose (mg/dL) 172 H 222 H 275 H (70-110) mg/dL Calcium (8.4-10.2) mg/dL ALT (4-49) U/L Total Protein (6.3-8.2) g/dL Albumin (3.5-5.0) g/dL 07/19/22 07/19/22 07/19/22 Range/Units 05:46 06:54 06:54 WBC 17.5 H (3.8-10.6) k/uL RBC 4.29 L (4.30-5.90) m/uL Neutrophils # 16.4 H (1.3-7.7) k/uL Lymphocytes # 0.3 L (1.0-4.8) k/uL Sodium 134 L (137-145) mmol/L BUN 80 H (9-20) mg/dL Creatinine 1.91 H (0.66-1.25) mg/dL Glucose 212 H (74-99) mg/dL POC Glucose (mg/dL) 225 H (70-110) mg/dL Calcium 6.5 L (8.4-10.2) mg/dL ALT 56 H (4-49) U/L Total Protein 4.4 L (6.3-8.2) g/dL Albumin 2.4 L (3.5-5.0) g/dL Assessment and Plan Plan: Assessment: 1. Mild acute kidney injury secondary to hemodynamic ATN. Renal function worse in the last few days. Creatinine 1.91 today. No hydronephrosis noted on CAT scan. 2. Ileus. Resolved. 3. A. fib. Cardiology following. Rate controlled. 4. Diabetes mellitus. Plan: Stop Catapres and Diovan. Encouraged oral intake. Check bladder scans to make sure no urinary retention. Continue to monitor renal function and urine output. Avoid nephrotoxins.
--- NOTE | 2022-07-19 13:37 | P.PN ---
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 Patient tried breathing treatments at home without much relief. Patient was tachycardic on admission with heart rate in 160s and was found to be SVT patient was given Ellenson in the ER. Otherwise denied any complaints of chest pain. No nausea vomiting or abdominal pain. Denied any increased leg swelling. No fever no chills. No prior history of SVT. Chest x-ray showed COPD. No active cardiopulmonary disease. Mild pulmonary fibrotic changes. No significant change. CTA chest showed no evidence of PE. Emphysema and mild pulmonary fibrosis. No suspicious pulmonary mass. Laboratory data showed WBC 16.0 hemoglobin 16.0 and platelets 269 Sodium 139 potassium four-point 102 bicarb is 20 BUN 16 and creatinine 0.87 and lactic acid 2.7 Troponin x1 negative and proBNP is 378 TSH 0.49 6 Coronavirus and influenza AMB not detected. Urinalysis is negative for infection. 07/08/2022 Patient continues to be monitored in intensive care unit mostly on BiPAP support but able to be weaned to 3 to 4 L of oxygen via nasal cannula. He is unsure when he has had bowel movement and has limited to no bowel sounds for this reason abdominal xray has been performed showing mildly distended small bowel loops and some segments of colon as well. Consider generalized ileus and difficult to exclude the possibility of a distal colonic obstruction. White blood cell count today 6.1, sodium 144, potassium 4.6, BUN 40, creatinine 0.99, blood glucose 150, magnesium 2.4. Procalcitonin 0.55. Vitals today, patient is afebrile, heart rate 71, blood pressure 121/64, 95% oxygen saturation. Patient has been maintained on dexmedetomidine for acute anxiety which is currently paused. Continues on IV Solu-Medrol, and bronchodilators. Patient is currently on IV cardizem gtt for tachycardia and will be transitioned to oral verapamil today, cardiology is following. 07/09/2022 Patient continues to be monitored in intensive care unit. White count elevated up to 12.4 today he has expiratory wheezing on exam changed from yesterday. Patient requiring bipap at 35% FiO2 currently. He did have low grade fever this morning 99 and is receiving acetaminophen as needed. chest xray today showing chronic emphysema and pulmonary fibrotic change. Procalcitonin level elevated at 0.55. IV ceftriaxone increased to 2 gram every 24 hours. Patient is continued on bronchodilators. Continues on IV solumedrol 60 mg q6h. Dexmedetomidine possibly being weaned off today, seroquel and haldol ordered with ativan as needed. Patient continues with significant abdominal distention and absent bowel sounds left lower quadrant. Did not receive lactulose yesterday. General surgery was consulted for further evaluation, currently placed NPO for possible ileus /bowel obstruction. He is hypertensive today with systolic in the 180s has been started on verapamil TID and also hydralazine 50 BID. Cardiology following. 07/10/2022 Patient evaluated today on BiPAP, fio2 has been increased to 40%, he is using accessory muscles to breath and appears quite aggitated. He is on combination of haldol, seroquel for this. Additionally, he was started on nicotine patch and clonidine patch. NG tube has been placed, patient has not had a BM. Abdominal Pelvis CT completed showing no CT evidence for small bowel obstruction. Patient also had follow up chest xray today showing COPD changes and no acute disease. Never the less he appears to have some respiratory distress requiring BiPAP. white count 11.7 today, sodium 149, BUN 47, creatinine 1.05, blood glucose 170s. Patient has been placed on amiodarone infusion and also heparin gtt as patient is unable to take oral medications currently. He continues on antibiotics. Continues on IV solumedrol. 07/11/2022 Patient is monitored in intensive care unit. Continues with NG tube. Tube feedings have been resumed with vital AF 1.2 with goal of 55 mls per hour. Currrently running at 20 mLs/hour. Patient has free water flush 30 mL every 4 hours, would like to increase free water and discontinue IV fluids. Sodium level today 148, potassium 4.1, chloride 110, BUN 51, creatinine 1.08. Blood glucose in the 240s and insulin has been increased. Patient is receiving lactulose, had fleet enema today. Has not had a BM this admission, bowel sounds in all 4 quadrants today. Amiodarone has been discontinued. Continues on oral verapamil. Heart rate is improving. Patient trialed on airvo 60/60 today. Chest xray showing no focal consolidation. 07/12/2022 Patient is evaluated in ICU, family at bedside. Continues on Airvo 60/60, reports non productive cough. Diffuse weakness. Abdomen distended seems worse than yesterday. Discussed with surgery. Tube feedings have been placed on hold a nd patient started on daily suppositories. Otherwise continues on empiric ceftriaxone. Chest xray showing COPD with possible underlying pulmonary vascular congestion. Sodium up to 150 today, nephrology consulted. Patient has been started on D5% water at 75 mls per hour. BUN 55 creatinine 1.22 today. Blood glucose 230s. Heart rate 120s today, blood pressure 130/91, remains afebrile. 07/13/2022 Patient continue in Intensive Care unit. Continues on Airvo 60/60. He reports breathing improved today less short of breath. Lung sounds have improved and increased aeration. Less congested. No BM yet, has been started on dulcolax suppository daily. Increased bowel sounds today and abdomen is less distended. Remains on IV ceftriaxone. White count normalized to 9.9. Sodium remains at 150, BUN 51, creatinine 1.21. Blood glucose 200s. hgb A1c found to be 6.5 consistent with diagnosis of diabetes mellitus type 2. Continues on levemir with sliding scale and scheduled novolog coverage. Remains afebrile, heart rate 87, blood pressure 177/91, oxygen saturation 95%. IV steroids have been decreased today. Continues on oral cardizem, oral verapamil. Continues on D5 water at 75 mls per hour. 07/14/2022 Patient continues to be monitored closely in intensive care unit. He continues on Airvo 45/60, has tolerated weaning and continues to report improvement in work of breathing. No wheezing noted on exam today has some coarse scattered ronchi. NG tube remains in place, he did have BM. Will discuss with surgery if NG tube can be discontinued. Will add nystatin swish today which can be applied manually versus swishing. Patient remains diffusely weak has been on bedrest. No breakdown noted on skin. Continues on oral amiodarone, verapamil, anticoagulated with eliquis. Patient has been maintained on empiric antibiotic coverage with IV ceftriaxone, tomorrow will be day 5. white count has normalized consider discontinuing antibiotics tomorrow. Patient is maintaining sinus rhythm today heart rate 80s, blood pressure 159/78, 93% oxygen saturation, has remained afebrile. Labs today are improving, white count remains within normal limits at 10.4, sodium 142, potassium 4.5, chloride normalized to 104, BUN 48, creatinine 1.08. Blood glucose 160s to 200s. IV fluids have been changed to D5 1/2 NS at 50. Repeat labs tomorrow. Multiple consultations following. PT/OT has been consulted. 07/15/22. Patient seen and examined. Daughter at the bedside. Patient continues to be on heated high flow oxygen. States he feels better. Denies any nausea, vomiting. Case discussed with nursing staff 07/16/22. Patient seen and examined. Stated that he had a panic attack this morning, currently doing much better. Breathing is improving. Denies any chest pain. Continues to be on heated high flow 07/17/22. Patient seen and examined. Continues to be on heated high flow. Does not look any acute distress. 07/18/22. Patient seen and examined. Patient is transferred out of ICU. Currently on 4 L of oxygen. Gets short of breath on exertion. Otherwise patient is doing better compared to yesterday 07/19. Patient seen and examined. Continues to be on 4 L of oxygen. Creatinine has bumped up to 1.9. Gets short of breath on exertion. Patient is very weak REVIEW OF SYSTEMS: CONSTITUTIONAL: No fever, no malaise, no fatigue. CARDIOVASCULAR: No chest pain, orthopnea, PND, no palpitations, no syncope. PULMONARY: Complaining of shortness of breath on exertion. no cough, no hemoptysis. GASTROINTESTINAL: No diarrhea, no nausea, no vomiting, no abdominal pain. PHYSICAL EXAMINATION: GENERAL: The patient is alert and oriented x3, not in any acute distress. Well developed, well nourished. HEENT: Pupils are round and equally reacting to light. EOMI. No scleral icterus. No conjunctival pallor. Normocephalic, atraumatic. No pharyngeal erythema. No thyromegaly. CARDIOVASCULAR: S1 and S2 present. No murmurs, rubs, or gallops. PULMONARY: Diminished breath sounds at the bases bilaterally. No crackles audible ABDOMEN: Soft, nontender, nondistended, normoactive bowel sounds. No palpable organomegaly. MUSCULOSKELETAL: No joint swelling or deformity. EXTREMITIES: No cyanosis, clubbing, or pedal edema. NEUROLOGICAL: Gross neurological examination did not reveal any focal deficits. SKIN: No rashes. Assessment and plan Acute hypoxic respiratory failure on airvo 45/60 Worsening shortness of breath secondary to acute COPD exacerbation and tracheobronchitis SVT Atrial fibrillation with rapid rate converted to normal sinus rhythm Hypertension Hypernatremia, resolved Metabolic acidosis Acute kidney injury Diabetes Mellitus type 2 A1C 6.5. Ileus, resolving BPH Prior history of smoking History of throat cancer and vocal cord status post radiation 2016 Plan: Monitor electrolytes. Continue oxygen supplementation Aggressive pulmonary hygiene Consult speech Monitor renal functions DC valsartan Short term amiodarone therapy for one month and then discontinue per cardiology Continue eliquis Continue IV Solu-Medrol. Continue breathing treatments Gen. surgery evaluated the patient, recommended bowel regimen, they signed off Follow-up on cardiology recommendations Follow-up on pulmonary recommendations Follow-up in nephrology recommendations Objective - Vital Signs Vital signs: Vital Signs Temp 98.3 F 07/19/22 07:33 Pulse 78 07/19/22 12:18 Resp 17 07/19/22 07:33 BP 120/67 07/19/22 07:33 Pulse Ox 92 L 07/19/22 07:33 FiO2 35 07/17/22 11:06 Intake & Output 07/18/22 07/19/22 07/19/22 18:59 06:59 18:59 Weight 95.5 kg Other: # Voids 1 6 - Labs CBC & Chem 7: 07/19/22 06:54 07/19/22 06:54 Labs: Abnormal Lab Results - Last 24 Hours (Table) 07/18/22 07/19/22 07/19/22 Range/Units 16:19 01:45 05:46 WBC (3.8-10.6) k/uL RBC (4.30-5.90) m/uL Neutrophils # (1.3-7.7) k/uL Lymphocytes # (1.0-4.8) k/uL Sodium (137-145) mmol/L BUN (9-20) mg/dL Creatinine (0.66-1.25) mg/dL Glucose (74-99) mg/dL POC Glucose (mg/dL) 222 H 275 H 225 H (70-110) mg/dL Calcium (8.4-10.2) mg/dL ALT (4-49) U/L Total Protein (6.3-8.2) g/dL Albumin (3.5-5.0) g/dL 07/19/22 07/19/22 Range/Units 06:54 06:54 WBC 17.5 H (3.8-10.6) k/uL RBC 4.29 L (4.30-5.90) m/uL Neutrophils # 16.4 H (1.3-7.7) k/uL Lymphocytes # 0.3 L (1.0-4.8) k/uL Sodium 134 L (137-145) mmol/L BUN 80 H (9-20) mg/dL Creatinine 1.91 H (0.66-1.25) mg/dL Glucose 212 H (74-99) mg/dL POC Glucose (mg/dL) (70-110) mg/dL Calcium 6.5 L (8.4-10.2) mg/dL ALT 56 H (4-49) U/L Total Protein 4.4 L (6.3-8.2) g/dL Albumin 2.4 L (3.5-5.0) g/dL
[2022-07-19 16:35] LABS: Glucose,Whole Blood 252 mg/dL (70-110)
--- NOTE | 2022-07-19 16:51 | P.PN ---
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 The patient is currently being seen in the intensive care unit for alcohol withdrawal was and hypoxic respiratory failure. This morning, is awake and alert and there is no significant agitation. He remains on high flow oxygen at 45 L with an FiO2 of 56%. His current pulse ox is around 89%. Note that he had a CT angiogram at time of admission that showed no evidence of any pulmonary embolism. It showed emphysema and mild portal fibrosis. His resting comfortably in bed. He has no significant shortness of breath at rest. The same time, the patient has been in normal sinus rhythm. Noted at the time of admission, he was in atrial fibrillation and he was treated with a Cardizem drip and currently is off the drip. He is also off Precedex for now. Neurologically, he is alert and oriented 3. His most recent chest x-ray from yesterday showing some atelec tatic changes in the lung bases and emphysema. Otherwise no other major abnormalities are noted. In terms of treatment, the patient is currently on DuoNeb about treatments [id number], he is on Pulmicort Respules 1 mg twice a day, he is on IV Solu-Medrol 40 mg every 6 hours. Is also on performance 1 nevertheless treatment twice a day. He is covered with antibiotics and the patient is receiving Rocephin 2 g every 24 hours. His blood cultures from this admission is negative. The white cell count is at 12 with a hemoglobin of 14.7 and a platelet count of 188. BUN is 44 with a creatinine of 1.1 and sodium levels of 137. In terms of his viral screen, the patient had a negative Covid 19 infection. Influenza screen was negative at the time of admission. On today's evaluation of 07/16/2022, the patient remains on high flow oxygen at 45 L with an FiO2 of 50%. The patient is feeling better and less short of breath compared to yesterday. No significant cough or sputum production. The patient was offered an incentive spirometer and the patient is able to generate adequate volumes on the incentive spirometer, nevertheless, the values remain less than 500 mL. The patient is on IV Rocephin. The patient was growing Haemophilus influenza in his sputum. At the same time, the patient remains on bronchodilators and he is on DuoNeb neb blotchiness 4 times a day, he is on a combination of Perforomist and Pulmicort neb less treatments twice a day and IV Solu-Medrol and the doses 40 mg IV every 6 hours. He was started on diuretics and to dose of Lasix will be given to him today. In terms of his blood work, his sodium level is at 137 with a potassium level of 4.4, BUN of 44 with a creatinine of 1.05 with RBC count of 12 a hemoglobin 14.8 and a platelet count of 148. LFTs are essentially within normal limits. On today's evaluation of 07/17/2022, the patient has no specific complaints. The patient is gradually improving. This morning, the patient was weaned down to 40 liters with an FiO2 of 35% high flow oxygen. The patient is otherwise doing well. He is using the incentive spirometer. He is still coughing and his cough is congested. Unable to bring up much sputum. He was diuresis yesterday and he has been negative fluid balance for now. BUN is a 53 with a creatinine of 1.29 his sodium levels is 135. The patient's WBC count is at 16.4 with a hemoglobin of 14.5. Remains on DuoNeb about treatments [id number]. Remains on IV Solu-Medrol. No altered mentation. No chest pain. Remains quite weak and his been having generalized global weakness. He is on Levemir 14 units daily twice a day and the patient is on NovoLog 40 units with meals and a sliding scale coverage. No altered mentation. No other new complaints. 07/18/2022, patient is doing well. The patient has been taken off the high flow oxygen the patient is currently on 4 L of O2 nasal cannula. No new complaints. IV Solu-Medrol was then tapered down to 20 mg every 8 hours. Limited cough. No significant congestion. So bronchospastic and wheezy. Air entry is quite limited in the lung bases bilaterally. He has advanced COPD.Transferred out of the intensive care unit yesterday. He is using the incentive spirometer. On his blood work, the patient has a white cell count of 8.9 with a hemoglobin of 12.4 count of 264. The patient has a BUN of 17 with a creatinine of 0.6 and his sodium level is 145. LFTs are normal. On 07/18/2022, I'm seeing the patient for a follow-up. The patient is currently on 4 L of oxygen by nasal cannula. No new complaints. He remains on IV Solu- Medrol 40 mg every 6 hours. He remains on DuoNeb about treatments on the clock. He is still very weak and he may need rehabilitation. He was transferred out of the intensive care unit few days back. echoes at 70 with a hemoglobin of 15.3 and a platelet count of 202. BUN is at 80 with a creatinine of 1.9 and there is a slight rise in the creatinine compared to yesterday's blood work. This is probably related to diuresis. Objective - Vital Signs Vital signs: Vital Signs Temp 97.8 F 07/19/22 14:00 Pulse 79 07/19/22 16:10 Resp 17 07/19/22 14:00 BP 105/64 07/19/22 14:00 Pulse Ox 94 L 07/19/22 14:00 FiO2 35 07/17/22 11:06 Intake & Output 07/18/22 07/19/22 07/19/22 18:59 06:59 18:59 Output Total 600 Balance -600 Weight 95.5 kg Output: Urine 600 Straight 600 Other: # Voids 1 6 - Exam No acute distress, much more calm today, currently on AIRVO. HEENT examination is grossly unremarkable. Neck supple. Full range of motion. No adenopathy thyromegaly or neck vein di stention. Cardiovascular examination reveals regular rhythm rate. S1-S2 normal. No S3 or S4. No discernible murmur noted. Heart sounds are distant. Lungs reveal bilateral coarse inspiratory expiratory rhonchi, and expiratory wheezes. No crackles. Saturations are 90 % on AIRVO. Abdomen soft, without bowel sounds. No masses or tenderness. Extremities are intact. No cyanosis clubbing or edema. Skin is without rash or lesion.Examination of the skin revealed no evidence of significant rashes, suspicious appearing nevi or other concerning lesions. Neurologic examination Neurologically, the patient is awake and alert and the patient does not have any focal neurological deficit. Cranial nerves are essentially intact. - Labs CBC & Chem 7: 07/19/22 06:54 07/19/22 06:54 Labs: Abnormal Lab Results - Last 24 Hours (Table) 07/19/22 07/19/22 07/19/22 Range/Units 01:45 05:46 06:54 WBC 17.5 H (3.8-10.6) k/uL RBC 4.29 L (4.30-5.90) m/uL Neutrophils # 16.4 H (1.3-7.7) k/uL Lymphocytes # 0.3 L (1.0-4.8) k/uL Sodium (137-145) mmol/L BUN (9-20) mg/dL Creatinine (0.66-1.25) mg/dL Glucose (74-99) mg/dL POC Glucose (mg/dL) 275 H 225 H (70-110) mg/dL Calcium (8.4-10.2) mg/dL ALT (4-49) U/L Total Protein (6.3-8.2) g/dL Albumin (3.5-5.0) g/dL 07/19/22 07/19/22 Range/Units 06:54 16:34 WBC (3.8-10.6) k/uL RBC (4.30-5.90) m/uL Neutrophils # (1.3-7.7) k/uL Lymphocytes # (1.0-4.8) k/uL Sodium 134 L (137-145) mmol/L BUN 80 H (9-20) mg/dL Creatinine 1.91 H (0.66-1.25) mg/dL Glucose 212 H (74-99) mg/dL POC Glucose (mg/dL) 252 H (70-110) mg/dL Calcium 6.5 L (8.4-10.2) mg/dL ALT 56 H (4-49) U/L Total Protein 4.4 L (6.3-8.2) g/dL Albumin 2.4 L (3.5-5.0) g/dL Assessment and Plan Plan: Acute hypoxemic respiratory failure secondary to COPD exacerbation and the patient presented with acute hypoxic and hypercapnic respiratory failure. Most recent blood gases from 07/10/2022 showed improvement in the acid base status. He was on BiPAP and subsequently was switched to high flow oxygen. Oxygenation has improved. Chest x-ray showing atelectatic changes a lung base bilaterally. The patient remains on 4 liters nasal cannula and he was taken off the high flow oxygen. Severe COPD and the patient has an FEV1 of 39% of predicted at baseline and this is based on spirometry that was done on 09/28/2020. The patient has been maintained on Advair and DuoNeb about treatments [id number].. Possible acute withdrawal, from either tobacco and/or alcohol. Acute kidney injury and the creatinine is up to 1.9 Acute tracheobronchitis. Supraventricular tachycardia/atrial fibrillation with RVR. Patient is currently on normal sinus rhythm. The patient is also on anticoagulation with Eliquis. The patient has a normal LV function Acute hypernatremia, recovered History of laryngeal carcinoma, in remission, status post radiation treatment, diagnosed in 2017. Acute hypercapnic respiratory failure secondary to severe COPD. Plan Recommended further weaning of the flow and the patient is currently on 4 L of oxygen by nasal cannula \No diuretics Solu-Medrol to be continued at the same dose Continue same treatment with a combination of bronchodilators and steroids and incentive spirometer Clinically improving Hemodynamically stable Deep breathing and pulmonary toileting Wean down FiO2 as tolerated to maintain a saturation above 90% Most recent chest x-ray showing essentially atelectatic changes in lung bases bilaterally and the most recent CAT scan of the abdomen and pelvis showed no significant intra-abdominal abnormalities. No evidence of any bowel obstruction most recent CAT scan of the chest showed no evidence of any pulmonary embolism Long-term prognosis poor based above-mentioned I will continue to follow. The priority is to improve the patient's vaccination for now. Aggressive use of incentive spirometer. We'll continue to follow. Involved physical therapy Repeat labs in the morning We'll continue to follow
[2022-07-19 20:10] LABS: Glucose,Whole Blood 209 mg/dL (70-110)
[2022-07-19] MEDS: ALPRAZolam 0.5 MG TAB PO PRN (21:32)
[2022-07-19] MEDS: ATORVASTATIN 10 MG TAB PO SCH (21:32)
[2022-07-20] MEDS: methylPREDNISolone SOD SUCCI 40 MG/ML 1 ML VIAL IV SCH ×4 (02:35→20:40)
[2022-07-20 03:36] LABS: Glucose,Whole Blood 143 mg/dL (70-110)
[2022-07-20 06:06] LABS: Glucose,Whole Blood 194 mg/dL (70-110)
[2022-07-20] MEDS: INSULIN ASPART (NovoLOG) 100 UNIT/ML VIAL SQ SCH ×8 (06:58→20:40)
[2022-07-20] MEDS: INSULIN DETEMIR (LEVEMIR) 100 UNIT/ML SYR SQ SCH ×2 (06:58→20:39)
--- NOTE | 2022-07-20 08:16 | P.PN ---
Subjective Progress Note Date: 07/20/22 Principal diagnosis: Patient is seen for acute kidney injury. Creatinine continues to worsen to 1.91 from 1.46 and 1.29 previously. His antihypertensive medications were held. Bl adder scan is significant with urinary retention of 400 mL to 600 mL. He has been straight cath last night. Today's labs are pending pressure remains somewhat soft in the 100-110 range He does have a history of prostatism with slow urine stream prior to admission. History of present illness: Patient is a 66-year-old male seen in consultation for hypernatremia. Patient's sodium level was normal on admission and has been gradually trending up and is up to 150 today. It was also 150 yesterday. Patient presented to the hospital on 07/06/2022 shortness of breath that was progressively getting worse. Patient was also noted to be in SVT seems to have resolved now. Due to changes in mentation he was not tolerating any oral intake and was receiving tube feeds; however tube feeds are now held due to ileus. He currently has an NG tube. Renal function has been fairly stable this admission with creatinine 0.87 on admission and is 1.2 today. Heart rate is currently controlled. He is on oral amiodarone. Patient's mentation is also improved. Computed tomography scan done July 10 showed no hydronephrosis. No small bowel obstruction was noted. Surgery is following. Objective - Vital Signs Vital signs: Vital Signs Temp 97.6 F 07/20/22 02:00 Pulse 69 07/20/22 02:00 Resp 17 07/20/22 02:00 BP 101/57 07/20/22 02:00 Pulse Ox 93 L 07/20/22 02:00 FiO2 35 07/17/22 11:06 Intake & Output 07/19/22 07/20/22 07/20/22 18:59 06:59 18:59 Intake Total 5 Output Total 600 520 Balance -600 -520 5 Weight 95.5 kg 86 kg Intake: IV 5 Invasive Line 9 5 Output: Urine 600 520 Straight 600 420 Other: Voiding Method Urinal Urinal # Bowel Movements 2 Exam general awake alert oriented HEENT exam no JVP Lungs are clear to auscultation. Heart sounds unremarkable for any murmur rub gallop Abdomen is soft nontender Extremity no edema Neurologically awake alert oriented - Labs CBC & Chem 7: 07/19/22 06:54 07/19/22 06:54 Labs: Abnormal Lab Results - Last 24 Hours (Table) 07/19/22 07/19/22 07/19/22 Range/Units 06:54 16:34 20:08 Sodium 134 L (137-145) mmol/L BUN 80 H (9-20) mg/dL Creatinine 1.91 H (0.66-1.25) mg/dL Glucose 212 H (74-99) mg/dL POC Glucose (mg/dL) 252 H 209 H (70-110) mg/dL Calcium 6.5 L (8.4-10.2) mg/dL ALT 56 H (4-49) U/L Total Protein 4.4 L (6.3-8.2) g/dL Albumin 2.4 L (3.5-5.0) g/dL 07/20/22 07/20/22 Range/Units 03:33 06:04 Sodium (137-145) mmol/L BUN (9-20) mg/dL Creatinine (0.66-1.25) mg/dL Glucose (74-99) mg/dL POC Glucose (mg/dL) 143 H 194 H (70-110) mg/dL Calcium (8.4-10.2) mg/dL ALT (4-49) U/L Total Protein (6.3-8.2) g/dL Albumin (3.5-5.0) g/dL Assessment and Plan Plan: 1. Acute kidney injury secondary to combination of low blood pressure as well as possible prostatism with bladder scan showing 400 mL to 600 mL residual requiring straight cath. Today's labs are pending after discontinuation off Diovan and Catapres yesterday. Remains on verapamil. 2. Ileus. Resolved. 3. A. fib. Cardiology following. Rate controlled. 4. Diabetes mellitus. Plan: Continue to hold Catapres and Diovan. Encouraged oral intake. Straight cath and if necessary put a Rojas catheter Start Flomax 0.4 mg. Call me if creatinine worsens this morning
[2022-07-20] MEDS: FORMOTEROL FUMARATE 20 MCG/2 ML NEBU INHALATION SCH ×2 (08:34→19:38)
[2022-07-20] MEDS: IPRATROPIUM-ALBUTEROL 3 ML NEB INHALATION SCH ×4 (08:34→19:38)
[2022-07-20] MEDS: BUDESONIDE 1 MG/2 ML NEBU INHALATION SCH ×2 (08:34→19:38)
[2022-07-20] MEDS: NYSTATIN 100,000 UNIT/ML SUSP 500,000 UNIT/5 ML CUP PO SCH ×4 (09:20→20:39)
[2022-07-20] MEDS: bisacodyL 10 MG SUPP RECTAL SCH (09:21)
[2022-07-20] MEDS: VERAPAMIL SR 240 MG TABLET.ER PO SCH (09:21)
[2022-07-20] MEDS: TAMSULOSIN 0.4 MG CAP.ER.24H PO SCH (09:21)
[2022-07-20] MEDS: APIXABAN 5 MG TAB PO SCH ×2 (09:21→20:39)
[2022-07-20] MEDS: AMIODARONE 200 MG TAB PO SCH ×2 (09:21→20:38)
[2022-07-20] MEDS: FAMOTIDINE 20 MG TAB PO SCH (09:21)
[2022-07-20 09:55] LABS: HGB 12.7 gm/dL (13.0-17.5); MCH 30.1 pg (25.0-35.0); MCHC 33.4 g/dL (31.0-37.0); MCV 90.3 fL (80.0-100.0); Mean Platelet Volume 8.1; Platelet Count 235 k/uL (150-450); RBC 4.21 m/uL (4.30-5.90); RDW 12.3 % (11.5-15.5)
[2022-07-20 10:04] LABS: ALT 54 U/L (4-49); AST 30 U/L (17-59); African American GFR (CKD) 39 (>60 ml/min/1.73 sqM); Albumin 2.4 g/dL (3.5-5.0); Albumin/Globulin Ratio 1.3; Alkaline Phosphatase 59 U/L (38-126); Anion Gap 2 mmol/L; Blood Urea Nitrogen 89 mg/dL (9-20); Calcium 6.5 mg/dL (8.4-10.2); Carbon Dioxide 31 mmol/L (22-30); Chloride 100 mmol/L (98-107); Globulin 1.9 g/dL; Glucose 138 mg/dL (74-99); Magnesium 2.6 mg/dL (1.6-2.3); Non-African American GFR(CKD) 34 (>60 ml/min/1.73 sqM); Sodium 133 mmol/L (137-145); Total Bilirubin 0.7 mg/dL (0.2-1.3); Total Protein 4.3 g/dL (6.3-8.2)
[2022-07-20 10:05] LABS: Potassium 4.8 mmol/L (3.5-5.1)
[2022-07-20 11:33] LABS: Glucose,Whole Blood 130 mg/dL (70-110)
--- NOTE | 2022-07-20 14:14 | P.PN ---
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 Patient tried breathing treatments at home without much relief. Patient was tachycardic on admission with heart rate in 160s and was found to be SVT patient was given Ellenson in the ER. Otherwise denied any complaints of chest pain. No nausea vomiting or abdominal pain. Denied any increased leg swelling. No fever no chills. No prior history of SVT. Chest x-ray showed COPD. No active cardiopulmonary disease. Mild pulmonary fibrotic changes. No significant change. CTA chest showed no evidence of PE. Emphysema and mild pulmonary fibrosis. No suspicious pulmonary mass. Laboratory data showed WBC 16.0 hemoglobin 16.0 and platelets 269 Sodium 139 potassium four-point 102 bicarb is 20 BUN 16 and creatinine 0.87 and lactic acid 2.7 Troponin x1 negative and proBNP is 378 TSH 0.49 6 Coronavirus and influenza AMB not detected. Urinalysis is negative for infection. 07/08/2022 Patient continues to be monitored in intensive care unit mostly on BiPAP support but able to be weaned to 3 to 4 L of oxygen via nasal cannula. He is unsure when he has had bowel movement and has limited to no bowel sounds for this reason abdominal xray has been performed showing mildly distended small bowel loops and some segments of colon as well. Consider generalized ileus and difficult to exclude the possibility of a distal colonic obstruction. White blood cell count today 6.1, sodium 144, potassium 4.6, BUN 40, creatinine 0.99, blood glucose 150, magnesium 2.4. Procalcitonin 0.55. Vitals today, patient is afebrile, heart rate 71, blood pressure 121/64, 95% oxygen saturation. Patient has been maintained on dexmedetomidine for acute anxiety which is currently paused. Continues on IV Solu-Medrol, and bronchodilators. Patient is currently on IV cardizem gtt for tachycardia and will be transitioned to oral verapamil today, cardiology is following. 07/09/2022 Patient continues to be monitored in intensive care unit. White count elevated up to 12.4 today he has expiratory wheezing on exam changed from yesterday. Patient requiring bipap at 35% FiO2 currently. He did have low grade fever this morning 99 and is receiving acetaminophen as needed. chest xray today showing chronic emphysema and pulmonary fibrotic change. Procalcitonin level elevated at 0.55. IV ceftriaxone increased to 2 gram every 24 hours. Patient is continued on bronchodilators. Continues on IV solumedrol 60 mg q6h. Dexmedetomidine possibly being weaned off today, seroquel and haldol ordered with ativan as needed. Patient continues with significant abdominal distention and absent bowel sounds left lower quadrant. Did not receive lactulose yesterday. General surgery was consulted for further evaluation, currently placed NPO for possible ileus /bowel obstruction. He is hypertensive today with systolic in the 180s has been started on verapamil TID and also hydralazine 50 BID. Cardiology following. 07/10/2022 Patient evaluated today on BiPAP, fio2 has been increased to 40%, he is using accessory muscles to breath and appears quite aggitated. He is on combination of haldol, seroquel for this. Additionally, he was started on nicotine patch and clonidine patch. NG tube has been placed, patient has not had a BM. Abdominal Pelvis CT completed showing no CT evidence for small bowel obstruction. Patient also had follow up chest xray today showing COPD changes and no acute disease. Never the less he appears to have some respiratory distress requiring BiPAP. white count 11.7 today, sodium 149, BUN 47, creatinine 1.05, blood glucose 170s. Patient has been placed on amiodarone infusion and also heparin gtt as patient is unable to take oral medications currently. He continues on antibiotics. Continues on IV solumedrol. 07/11/2022 Patient is monitored in intensive care unit. Continues with NG tube. Tube feedings have been resumed with vital AF 1.2 with goal of 55 mls per hour. Currrently running at 20 mLs/hour. Patient has free water flush 30 mL every 4 hours, would like to increase free water and discontinue IV fluids. Sodium level today 148, potassium 4.1, chloride 110, BUN 51, creatinine 1.08. Blood glucose in the 240s and insulin has been increased. Patient is receiving lactulose, had fleet enema today. Has not had a BM this admission, bowel sounds in all 4 quadrants today. Amiodarone has been discontinued. Continues on oral verapamil. Heart rate is improving. Patient trialed on airvo 60/60 today. Chest xray showing no focal consolidation. 07/12/2022 Patient is evaluated in ICU, family at bedside. Continues on Airvo 60/60, reports non productive cough. Diffuse weakness. Abdomen distended seems worse than yesterday. Discussed with surgery. Tube feedings have been placed on hold a nd patient started on daily suppositories. Otherwise continues on empiric ceftriaxone. Chest xray showing COPD with possible underlying pulmonary vascular congestion. Sodium up to 150 today, nephrology consulted. Patient has been started on D5% water at 75 mls per hour. BUN 55 creatinine 1.22 today. Blood glucose 230s. Heart rate 120s today, blood pressure 130/91, remains afebrile. 07/13/2022 Patient continue in Intensive Care unit. Continues on Airvo 60/60. He reports breathing improved today less short of breath. Lung sounds have improved and increased aeration. Less congested. No BM yet, has been started on dulcolax suppository daily. Increased bowel sounds today and abdomen is less distended. Remains on IV ceftriaxone. White count normalized to 9.9. Sodium remains at 150, BUN 51, creatinine 1.21. Blood glucose 200s. hgb A1c found to be 6.5 consistent with diagnosis of diabetes mellitus type 2. Continues on levemir with sliding scale and scheduled novolog coverage. Remains afebrile, heart rate 87, blood pressure 177/91, oxygen saturation 95%. IV steroids have been decreased today. Continues on oral cardizem, oral verapamil. Continues on D5 water at 75 mls per hour. 07/14/2022 Patient continues to be monitored closely in intensive care unit. He continues on Airvo 45/60, has tolerated weaning and continues to report improvement in work of breathing. No wheezing noted on exam today has some coarse scattered ronchi. NG tube remains in place, he did have BM. Will discuss with surgery if NG tube can be discontinued. Will add nystatin swish today which can be applied manually versus swishing. Patient remains diffusely weak has been on bedrest. No breakdown noted on skin. Continues on oral amiodarone, verapamil, anticoagulated with eliquis. Patient has been maintained on empiric antibiotic coverage with IV ceftriaxone, tomorrow will be day 5. white count has normalized consider discontinuing antibiotics tomorrow. Patient is maintaining sinus rhythm today heart rate 80s, blood pressure 159/78, 93% oxygen saturation, has remained afebrile. Labs today are improving, white count remains within normal limits at 10.4, sodium 142, potassium 4.5, chloride normalized to 104, BUN 48, creatinine 1.08. Blood glucose 160s to 200s. IV fluids have been changed to D5 1/2 NS at 50. Repeat labs tomorrow. Multiple consultations following. PT/OT has been consulted. 07/15/22. Patient seen and examined. Daughter at the bedside. Patient continues to be on heated high flow oxygen. States he feels better. Denies any nausea, vomiting. Case discussed with nursing staff 07/16/22. Patient seen and examined. Stated that he had a panic attack this morning, currently doing much better. Breathing is improving. Denies any chest pain. Continues to be on heated high flow 07/17/22. Patient seen and examined. Continues to be on heated high flow. Does not look any acute distress. 07/18/22. Patient seen and examined. Patient is transferred out of ICU. Currently on 4 L of oxygen. Gets short of breath on exertion. Otherwise patient is doing better compared to yesterday 07/19. Patient seen and examined. Continues to be on 4 L of oxygen. Creatinine has bumped up to 1.9. Gets short of breath on exertion. Patient is very weak 07/20. Patient seen and examined. Still gets short of breath on minimal exertion. Denies any chest pain. Not very keen to get out of the bed. Explained to him that he needs to get out of the bed REVIEW OF SYSTEMS: CONSTITUTIONAL: No fever, no malaise, no fatigue. CARDIOVASCULAR: No chest pain, orthopnea, PND, no palpitations, no syncope. PULMONARY: Complaining of shortness of breath on exertion. no cough, no hemoptysis. GASTROINTESTINAL: No diarrhea, no nausea, no vomiting, no abdominal pain. PHYSICAL EXAMINATION: GENERAL: The patient is alert and oriented x3, not in any acute distress. Well developed, well nourished. HEENT: Pupils are round and equally reacting to light. EOMI. No scleral icterus. No conjunctival pallor. Normocephalic, atraumatic. No pharyngeal erythema. No thyromegaly. CARDIOVASCULAR: S1 and S2 present. No murmurs, rubs, or gallops. PULMONARY: Diminished breath sounds at the bases bilaterally. No crackles audible ABDOMEN: Soft, nontender, nondistended, normoactive bowel sounds. No palpable organomegaly. MUSCULOSKELETAL: No joint swelling or deformity. EXTREMITIES: No cyanosis, clubbing, or pedal edema. NEUROLOGICAL: Gross neurological examination did not reveal any focal deficits. SKIN: No rashes. Assessment and plan Acute hypoxic respiratory failure on airvo 45/60 Worsening shortness of breath secondary to acute COPD exacerbation and tracheobronchitis SVT Atrial fibrillation with rapid rate converted to normal sinus rhythm Hypertension Hypernatremia, resolved Metabolic acidosis Acute kidney injury Diabetes Mellitus type 2 A1C 6.5. Ileus, resolving BPH Prior history of smoking History of throat cancer and vocal cord status post radiation 2016 Plan: Monitor electrolytes. Monitor renal functions Continue oxygen supplementation Aggressive pulmonary hygiene Short term amiodarone therapy for one month and then discontinue per cardiology Continue eliquis Continue IV Solu-Medrol. Continue breathing treatments Gen. surgery evaluated the patient, recommended bowel regimen, they signed off Follow-up on cardiology recommendations Follow-up on pulmonary recommendations Follow-up in nephrology recommendations Objective - Vital Signs Vital signs: Vital Signs Temp 97.7 F 07/20/22 08:00 Pulse 72 07/20/22 11:59 Resp 17 07/20/22 08:00 BP 101/60 07/20/22 08:00 Pulse Ox 91 L 07/20/22 08:37 FiO2 35 07/17/22 11:06 Intake & Output 07/19/22 07/20/22 07/20/22 18:59 06:59 18:59 Intake Total 5 Output Total 600 520 300 Balance -600 -520 -295 Weight 95.5 kg 86 kg Intake: IV 5 Invasive Line 9 5 Output: Urine 600 520 300 Straight 600 420 Other: Voiding Method Urinal Urinal # Voids 1 # Bowel Movements 2 2 - Labs CBC & Chem 7: 07/20/22 09:39 07/20/22 09:39 Labs: Abnormal Lab Results - Last 24 Hours (Table) 07/19/22 07/19/22 07/20/22 Range/Units 16:34 20:08 03:33 WBC (3.8-10.6) k/uL RBC (4.30-5.90) m/uL Hgb (13.0-17.5) gm/dL Hct (39.0-53.0) % Sodium (137-145) mmol/L Carbon Dioxide (22-30) mmol/L BUN (9-20) mg/dL Creatinine (0.66-1.25) mg/dL Glucose (74-99) mg/dL POC Glucose (mg/dL) 252 H 209 H 143 H (70-110) mg/dL Calcium (8.4-10.2) mg/dL Magnesium (1.6-2.3) mg/dL ALT (4-49) U/L Total Protein (6.3-8.2) g/dL Albumin (3.5-5.0) g/dL 07/20/22 07/20/22 07/20/22 Range/Units 06:04 09:39 09:39 WBC 16.0 H (3.8-10.6) k/uL RBC 4.21 L (4.30-5.90) m/uL Hgb 12.7 L (13.0-17.5) gm/dL Hct 38.0 L (39.0-53.0) % Sodium 133 L (137-145) mmol/L Carbon Dioxide 31 H (22-30) mmol/L BUN 89 H (9-20) mg/dL Creatinine 1.97 H (0.66-1.25) mg/dL Glucose 138 H (74-99) mg/dL POC Glucose (mg/dL) 194 H (70-110) mg/dL Calcium 6.5 L (8.4-10.2) mg/dL Magnesium 2.6 H (1.6-2.3) mg/dL ALT 54 H (4-49) U/L Total Protein 4.3 L (6.3-8.2) g/dL Albumin 2.4 L (3.5-5.0) g/dL 07/20/22 Range/Units 11:32 WBC (3.8-10.6) k/uL RBC (4.30-5.90) m/uL Hgb (13.0-17.5) gm/dL Hct (39.0-53.0) % Sodium (137-145) mmol/L Carbon Dioxide (22-30) mmol/L BUN (9-20) mg/dL Creatinine (0.66-1.25) mg/dL Glucose (74-99) mg/dL POC Glucose (mg/dL) 130 H (70-110) mg/dL Calcium (8.4-10.2) mg/dL Magnesium (1.6-2.3) mg/dL ALT (4-49) U/L Total Protein (6.3-8.2) g/dL Albumin (3.5-5.0) g/dL
--- NOTE | 2022-07-20 16:21 | P.PN ---
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 The patient is currently being seen in the intensive care unit for alcohol withdrawal was and hypoxic respiratory failure. This morning, is awake and alert and there is no significant agitation. He remains on high flow oxygen at 45 L with an FiO2 of 56%. His current pulse ox is around 89%. Note that he had a CT angiogram at time of admission that showed no evidence of any pulmonary embolism. It showed emphysema and mild portal fibrosis. His resting comfortably in bed. He has no significant shortness of breath at rest. The same time, the patient has been in normal sinus rhythm. Noted at the time of admission, he was in atrial fibrillation and he was treated with a Cardizem drip and currently is off the drip. He is also off Precedex for now. Neurologically, he is alert and oriented 3. His most recent chest x-ray from yesterday showing some atelec tatic changes in the lung bases and emphysema. Otherwise no other major abnormalities are noted. In terms of treatment, the patient is currently on DuoNeb about treatments [id number], he is on Pulmicort Respules 1 mg twice a day, he is on IV Solu-Medrol 40 mg every 6 hours. Is also on performance 1 nevertheless treatment twice a day. He is covered with antibiotics and the patient is receiving Rocephin 2 g every 24 hours. His blood cultures from this admission is negative. The white cell count is at 12 with a hemoglobin of 14.7 and a platelet count of 188. BUN is 44 with a creatinine of 1.1 and sodium levels of 137. In terms of his viral screen, the patient had a negative Covid 19 infection. Influenza screen was negative at the time of admission. On today's evaluation of 07/16/2022, the patient remains on high flow oxygen at 45 L with an FiO2 of 50%. The patient is feeling better and less short of breath compared to yesterday. No significant cough or sputum production. The patient was offered an incentive spirometer and the patient is able to generate adequate volumes on the incentive spirometer, nevertheless, the values remain less than 500 mL. The patient is on IV Rocephin. The patient was growing Haemophilus influenza in his sputum. At the same time, the patient remains on bronchodilators and he is on DuoNeb neb blotchiness 4 times a day, he is on a combination of Perforomist and Pulmicort neb less treatments twice a day and IV Solu-Medrol and the doses 40 mg IV every 6 hours. He was started on diuretics and to dose of Lasix will be given to him today. In terms of his blood work, his sodium level is at 137 with a potassium level of 4.4, BUN of 44 with a creatinine of 1.05 with RBC count of 12 a hemoglobin 14.8 and a platelet count of 148. LFTs are essentially within normal limits. On today's evaluation of 07/17/2022, the patient has no specific complaints. The patient is gradually improving. This morning, the patient was weaned down to 40 liters with an FiO2 of 35% high flow oxygen. The patient is otherwise doing well. He is using the incentive spirometer. He is still coughing and his cough is congested. Unable to bring up much sputum. He was diuresis yesterday and he has been negative fluid balance for now. BUN is a 53 with a creatinine of 1.29 his sodium levels is 135. The patient's WBC count is at 16.4 with a hemoglobin of 14.5. Remains on DuoNeb about treatments [id number]. Remains on IV Solu-Medrol. No altered mentation. No chest pain. Remains quite weak and his been having generalized global weakness. He is on Levemir 14 units daily twice a day and the patient is on NovoLog 40 units with meals and a sliding scale coverage. No altered mentation. No other new complaints. 07/18/2022, patient is doing well. The patient has been taken off the high flow oxygen the patient is currently on 4 L of O2 nasal cannula. No new complaints. IV Solu-Medrol was then tapered down to 20 mg every 8 hours. Limited cough. No significant congestion. So bronchospastic and wheezy. Air entry is quite limited in the lung bases bilaterally. He has advanced COPD.Transferred out of the intensive care unit yesterday. He is using the incentive spirometer. On his blood work, the patient has a white cell count of 8.9 with a hemoglobin of 12.4 count of 264. The patient has a BUN of 17 with a creatinine of 0.6 and his sodium level is 145. LFTs are normal. On 07/19/2022, I'm seeing the patient for a follow-up. The patient is currently on 4 L of oxygen by nasal cannula. No new complaints. He remains on IV Solu- Medrol 40 mg every 6 hours. He remains on DuoNeb about treatments on the clock. He is still very weak and he may need rehabilitation. He was transferred out of the intensive care unit few days back. echoes at 70 with a hemoglobin of 15.3 and a platelet count of 202. BUN is at 80 with a creatinine of 1.9 and there is a slight rise in the creatinine compared to yesterday's blood work. This is probably related to diuresis. 07/20/2022, the patient is still on 4 L of Oxymizer nasal cannula. Overall respiratory status is stable. Nevertheless, the patient was having some issues with obstructive uropathy. The teacher hearing impaired was consulted. The patient is having frequent bladder scans. Flomax was also added to the regimen at a dose of 0.4 mg on a daily basis. The patient's creatinine currently is at 1.9 and the BUN is 89 with a sodium level of 133. Diuretics were held. echoes at 60 with a hemoglobin 12.7. Potassium is at 4.8. LFTs are normal. The patient remains on DuoNeb about treatments [id number]. The patient remains on IV Solu-Medrol at a dose of 40 mg every 6 hours. No diuretics for now. Objective - Vital Signs Vital signs: Vital Signs Temp 97.8 F 07/20/22 14:00 Pulse 84 07/20/22 15:54 Resp 16 07/20/22 14:00 BP 100/61 07/20/22 14:00 Pulse Ox 92 L 07/20/22 14:00 FiO2 35 07/17/22 11:06 Intake & Output 07/19/22 07/20/22 07/20/22 18:59 06:59 18:59 Intake Total 5 Output Total 600 520 425 Balance -600 -520 -420 Weight 95.5 kg 86 kg Intake: IV 5 Invasive Line 9 5 Output: Urine 600 520 425 Straight 600 420 Other: Voiding Method Urinal Urinal # Voids 1 # Bowel Movements 2 2 - Exam No acute distress, much more calm today, currently on AIRVO. HEENT examination is grossly unremarkable. Neck supple. Full range of motion. No adenopathy thyromegaly or neck vein distention. Cardiovascular examination reveals regular rhythm rate. S1-S2 normal. No S3 or S4. No discernible murmur noted. Heart sounds are distant. Lungs reveal bilateral coarse inspiratory expiratory rhonchi, and expiratory wheezes. No crackles. Saturations are 90 % on AIRVO. Abdomen soft, without bowel sounds. No masses or tenderness. Extremities are intact. No cyanosis clubbing or edema. Skin is without rash or lesion.Examination of the skin revealed no evidence of significant rashes, suspicious appearing nevi or other concerning lesions. Neurologic examination Neurologically, the patient is awake and alert and the patient does not have any focal neurological deficit. Cranial nerves are essentially intact. - Labs CBC & Chem 7: 07/20/22 09:39 07/20/22 09:39 Labs: Abnormal Lab Results - Last 24 Hours (Table) 07/19/22 07/19/22 07/20/22 Range/Units 16:34 20:08 03:33 WBC (3.8-10.6) k/uL RBC (4.30-5.90) m/uL Hgb (13.0-17.5) gm/dL Hct (39.0-53.0) % Sodium (137-145) mmol/L Carbon Dioxide (22-30) mmol/L BUN (9-20) mg/dL Creatinine (0.66-1.25) mg/dL Glucose (74-99) mg/dL POC Glucose (mg/dL) 252 H 209 H 143 H (70-110) mg/dL Calcium (8.4-10.2) mg/dL Magnesium (1.6-2.3) mg/dL ALT (4-49) U/L Total Protein (6.3-8.2) g/dL Albumin (3.5-5.0) g/dL 07/20/22 07/20/22 07/20/22 Range/Units 06:04 09:39 09:39 WBC 16.0 H (3.8-10.6) k/uL RBC 4.21 L (4.30-5.90) m/uL Hgb 12.7 L (13.0-17.5) gm/dL Hct 38.0 L (39.0-53.0) % Sodium 133 L (137-145) mmol/L Carbon Dioxide 31 H (22-30) mmol/L BUN 89 H (9-20) mg/dL Creatinine 1.97 H (0.66-1.25) mg/dL Glucose 138 H (74-99) mg/dL POC Glucose (mg/dL) 194 H (70-110) mg/dL Calcium 6.5 L (8.4-10.2) mg/dL Magnesium 2.6 H (1.6-2.3) mg/dL ALT 54 H (4-49) U/L Total Protein 4.3 L (6.3-8.2) g/dL Albumin 2.4 L (3.5-5.0) g/dL 07/20/22 Range/Units 11:32 WBC (3.8-10.6) k/uL RBC (4.30-5.90) m/uL Hgb (13.0-17.5) gm/dL Hct (39.0-53.0) % Sodium (137-145) mmol/L Carbon Dioxide (22-30) mmol/L BUN (9-20) mg/dL Creatinine (0.66-1.25) mg/dL Glucose (74-99) mg/dL POC Glucose (mg/dL) 130 H (70-110) mg/dL Calcium (8.4-10.2) mg/dL Magnesium (1.6-2.3) mg/dL ALT (4-49) U/L Total Protein (6.3-8.2) g/dL Albumin (3.5-5.0) g/dL Assessment and Plan Plan: Acute hypoxemic respiratory failure secondary to COPD exacerbation and the patient presented with acute hypoxic and hypercapnic respiratory failure. Most recent blood gases from 07/10/2022 showed improvement in the acid base status. He was on BiPAP and subsequently was switched to high flow oxygen. Oxygenation has improved. Chest x-ray showing atelectatic changes a lung base bilaterally. The patient remains on 4 liters nasal cannula and he was taken off the high flow oxygen. Severe COPD and the patient has an FEV1 of 39% of predicted at baseline and this is based on spirometry that was done on 09/28/2020. The patient has been maintained on Advair and DuoNeb about treatments [id number].. Possible acute withdrawal, from either tobacco and/or alcohol. Acute kidney injury and the creatinine is up to 1.9 Acute tracheobronchitis. Supraventricular tachycardia/atrial fibrillation with RVR. Patient is currently on normal sinus rhythm. The patient is also on anticoagulation with Eliquis. The patient has a normal LV function Acute hypernatremia, recovered History of laryngeal carcinoma, in remission, status post radiation treatment, diagnosed in 2017. Acute hypercapnic respiratory failure secondary to severe COPD. Plan Monitor urine output Treatment bladder scans He has a Rojas catheter if needed Creatinine stable at 1.9 No diuretics Infant Toddler Lead Teacher on the case Continue oxygen 4 L Continue IV Solu-Medrol Titrate FiO2 as tolerated Increase mobility Long-term prognosis poor based above-mentioned I will continue to follow. The priority is to improve the patient's vaccination for now. Aggressive use of incentive spirometer. We'll continue to follow. Involved physical therapy Repeat labs in the morning We'll continue to follow
[2022-07-20 16:55] LABS: Glucose,Whole Blood 233 mg/dL (70-110)
[2022-07-20 20:05] LABS: Glucose,Whole Blood 283 mg/dL (70-110)
[2022-07-20] MEDS: ATORVASTATIN 10 MG TAB PO SCH (20:38)
[2022-07-20] MEDS: ALPRAZolam 0.5 MG TAB PO PRN (20:41)
[2022-07-21] MEDS: methylPREDNISolone SOD SUCCI 40 MG/ML 1 ML VIAL IV SCH ×4 (03:28→22:00)
[2022-07-21 03:29] LABS: Glucose,Whole Blood 106 mg/dL (70-110)
[2022-07-21 06:33] LABS: HCT 35.2 % (39.0-53.0); HGB 11.8 gm/dL (13.0-17.5); MCH 30.7 pg (25.0-35.0); MCHC 33.6 g/dL (31.0-37.0); MCV 91.4 fL (80.0-100.0); Mean Platelet Volume 7.9; Platelet Count 206 k/uL (150-450); RBC 3.85 m/uL (4.30-5.90); RDW 11.8 % (11.5-15.5); WBC 12.4 k/uL (3.8-10.6)
[2022-07-21 06:42] LABS: Anion Gap 3 mmol/L; Blood Urea Nitrogen 97 mg/dL (9-20); Carbon Dioxide 27 mmol/L (22-30); Chloride 101 mmol/L (98-107); Glucose 87 mg/dL (74-99); Potassium 4.9 mmol/L (3.5-5.1); Sodium 131 mmol/L (137-145)
[2022-07-21 06:43] LABS: ALT 51 U/L (4-49); AST 28 U/L (17-59); African American GFR (CKD) 42 (>60 ml/min/1.73 sqM); Albumin 2.2 g/dL (3.5-5.0); Albumin/Globulin Ratio 1.2; Alkaline Phosphatase 50 U/L (38-126); Calcium 6.6 mg/dL (8.4-10.2); Globulin 1.9 g/dL; Non-African American GFR(CKD) 37 (>60 ml/min/1.73 sqM); Total Bilirubin 0.8 mg/dL (0.2-1.3); Total Protein 4.1 g/dL (6.3-8.2)
[2022-07-21 06:55] LABS: Glucose,Whole Blood 112 mg/dL (70-110)
[2022-07-21] MEDS: INSULIN ASPART (NovoLOG) 100 UNIT/ML VIAL SQ SCH ×8 (06:55→21:59)
[2022-07-21] MEDS: INSULIN DETEMIR (LEVEMIR) 100 UNIT/ML SYR SQ SCH ×2 (06:56→21:59)
--- NOTE | 2022-07-21 08:13 | P.PN ---
Subjective Progress Note Date: 07/21/22 Principal diagnosis: Patient is seen for acute kidney injury and hypernatremia at the time of admission. Creatinine continues to worsen to 1.91 from 1.46 and 1.29 previously. His antihypertensive medications were held. Bladder scan is significant with urinary retention of 400 mL to 600 mL. He has been straight cath, Rojas catheter was inserted last night. Today's labs are pending pressure remains somewhat soft in the 100-110 range and creatinine improved from peak of 1.97, to 1.8 as of yesterday today's labs are pending He does have a history of prostatism with slow urine stream prior to admission. with a Rojas catheter in his urine output is 19 55 mL for the last 24 hours Chest x-ray is suggestive of COPD and few basal atelectasis History of present illness: Patient is a 66-year-old male seen in consultation for hypernatremia. Patient's sodium level was normal on admission and has been gradually trending up and is up to 150 today. It was also 150 yesterday. Patient presented to the hospital on 07/06/2022 shortness of breath that was progressively getting worse. Patient was also noted to be in SVT seems to have resolved now. Due to changes in mentation he was not tolerating any oral intake and was receiving tube feeds; however tube feeds are now held due to ileus. He currently has an NG tube. Renal function has been fairly stable this admission with creatinine 0.87 on admission and is 1.2 today. Heart rate is currently controlled. He is on oral amiodarone. Patient's mentation is also improved. Computed tomography scan done July 10 showed no hydronephrosis. No small bowel obstruction was noted. Surgery is following. Objective - Vital Signs Vital signs: Vital Signs Temp 97.4 F L 07/21/22 02:00 Pulse 65 07/21/22 02:00 Resp 16 07/21/22 02:00 BP 93/52 07/21/22 02:00 Pulse Ox 92 L 07/21/22 02:00 FiO2 35 07/17/22 11:06 Intake & Output 07/20/22 07/21/22 07/21/22 18:59 06:59 18:59 Intake Total 5 5 Output Total 1455 500 Balance -1450 -500 5 Weight 87.5 kg Intake: IV 5 5 Invasive Line 9 5 5 Output: Urine 1000 500 Straight 450 Post Void Residual 455 Other: Voiding Method Urinal Urinal # Voids 1 # Bowel Movements 2 Exams awake alert oriented comfortable on nasal cannula oxygen HEENT exam no JVP neck is supple no facial asymmetry Lungs are significant for bilateral basal coarse crackles good air entry bilaterally. Occasional end expiratory wheezing Heart sounds unremarkable for any murmur rub gallop Abdomen soft nontender. Extremity examination reveals trace edema Neurologically awake alert oriented - Labs CBC & Chem 7: 07/21/22 05:28 07/21/22 05:28 Labs: Abnormal Lab Results - Last 24 Hours (Table) 07/20/22 07/20/22 07/20/22 Range/Units 09:39 09:39 11:32 WBC 16.0 H (3.8-10.6) k/uL RBC 4.21 L (4.30-5.90) m/uL Hgb 12.7 L (13.0-17.5) gm/dL Hct 38.0 L (39.0-53.0) % Sodium 133 L (137-145) mmol/L Carbon Dioxide 31 H (22-30) mmol/L BUN 89 H (9-20) mg/dL Creatinine 1.97 H (0.66-1.25) mg/dL Glucose 138 H (74-99) mg/dL POC Glucose (mg/dL) 130 H (70-110) mg/dL Calcium 6.5 L (8.4-10.2) mg/dL Magnesium 2.6 H (1.6-2.3) mg/dL ALT 54 H (4-49) U/L Total Protein 4.3 L (6.3-8.2) g/dL Albumin 2.4 L (3.5-5.0) g/dL 07/20/22 07/20/22 07/21/22 Range/Units 16:53 20:03 05:28 WBC 12.4 H (3.8-10.6) k/uL RBC 3.85 L (4.30-5.90) m/uL Hgb 11.8 L (13.0-17.5) gm/dL Hct 35.2 L (39.0-53.0) % Sodium (137-145) mmol/L Carbon Dioxide (22-30) mmol/L BUN (9-20) mg/dL Creatinine (0.66-1.25) mg/dL Glucose (74-99) mg/dL POC Glucose (mg/dL) 233 H 283 H (70-110) mg/dL Calcium (8.4-10.2) mg/dL Magnesium (1.6-2.3) mg/dL ALT (4-49) U/L Total Protein (6.3-8.2) g/dL Albumin (3.5-5.0) g/dL 07/21/22 07/21/22 Range/Units 05:28 06:53 WBC (3.8-10.6) k/uL RBC (4.30-5.90) m/uL Hgb (13.0-17.5) gm/dL Hct (39.0-53.0) % Sodium 131 L (137-145) mmol/L Carbon Dioxide (22-30) mmol/L BUN 97 H (9-20) mg/dL Creatinine 1.85 H (0.66-1.25) mg/dL Glucose (74-99) mg/dL POC Glucose (mg/dL) 112 H (70-110) mg/dL Calcium 6.6 L (8.4-10.2) mg/dL Magnesium (1.6-2.3) mg/dL ALT 51 H (4-49) U/L Total Protein 4.1 L (6.3-8.2) g/dL Albumin 2.2 L (3.5-5.0) g/dL Assessment and Plan Plan: 1. Acute kidney injury secondary to combination of low blood pressure as well as possible prostatism with bladder scan showing 400 mL to 600 mL residual requi ring straight cath. Blood pressure medications were reduced significantly, Blood pressure is still somewhat low, but better systolic ranging 90s to 110. Creatinine improved to 1.85 from a peak of 1.97 yesterday 2. Ileus. Resolved. 3. A. fib. Cardiology following. Rate controlled. 4. Diabetes mellitus. 5. Neurogenic bladder Rojas catheter inserted last night 07/20/2022, started on Flomax Plan: Continue to hold Catapres and Diovan. Encouraged oral intake. Continue Flomax 0.4 mg.
[2022-07-21] MEDS: FORMOTEROL FUMARATE 20 MCG/2 ML NEBU INHALATION SCH ×2 (08:32→19:55)
[2022-07-21] MEDS: IPRATROPIUM-ALBUTEROL 3 ML NEB INHALATION SCH ×4 (08:33→19:56)
[2022-07-21] MEDS: BUDESONIDE 1 MG/2 ML NEBU INHALATION SCH ×2 (08:33→19:56)
[2022-07-21] MEDS: FAMOTIDINE 20 MG TAB PO SCH (09:05)
[2022-07-21] MEDS: VERAPAMIL SR 240 MG TABLET.ER PO SCH (09:05)
[2022-07-21] MEDS: NYSTATIN 100,000 UNIT/ML SUSP 500,000 UNIT/5 ML CUP PO SCH ×4 (09:05→21:59)
[2022-07-21] MEDS: AMIODARONE 200 MG TAB PO SCH ×2 (09:05→21:59)
[2022-07-21] MEDS: TAMSULOSIN 0.4 MG CAP.ER.24H PO SCH (09:05)
[2022-07-21] MEDS: APIXABAN 5 MG TAB PO SCH ×2 (09:05→21:59)
[2022-07-21] MEDS: bisacodyL 10 MG SUPP RECTAL SCH (09:08)
[2022-07-21 11:19] LABS: Glucose,Whole Blood 185 mg/dL (70-110)
--- NOTE | 2022-07-21 13:17 | P.PN ---
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 Patient tried breathing treatments at home without much relief. Patient was tachycardic on admission with heart rate in 160s and was found to be SVT patient was given Ellenson in the ER. Otherwise denied any complaints of chest pain. No nausea vomiting or abdominal pain. Denied any increased leg swelling. No fever no chills. No prior history of SVT. Chest x-ray showed COPD. No active cardiopulmonary disease. Mild pulmonary fibrotic changes. No significant change. CTA chest showed no evidence of PE. Emphysema and mild pulmonary fibrosis. No suspicious pulmonary mass. Laboratory data showed WBC 16.0 hemoglobin 16.0 and platelets 269 Sodium 139 potassium four-point 102 bicarb is 20 BUN 16 and creatinine 0.87 and lactic acid 2.7 Troponin x1 negative and proBNP is 378 TSH 0.49 6 Coronavirus and influenza AMB not detected. Urinalysis is negative for infection. 07/08/2022 Patient continues to be monitored in intensive care unit mostly on BiPAP support but able to be weaned to 3 to 4 L of oxygen via nasal cannula. He is unsure when he has had bowel movement and has limited to no bowel sounds for this reason abdominal xray has been performed showing mildly distended small bowel loops and some segments of colon as well. Consider generalized ileus and difficult to exclude the possibility of a distal colonic obstruction. White blood cell count today 6.1, sodium 144, potassium 4.6, BUN 40, creatinine 0.99, blood glucose 150, magnesium 2.4. Procalcitonin 0.55. Vitals today, patient is afebrile, heart rate 71, blood pressure 121/64, 95% oxygen saturation. Patient has been maintained on dexmedetomidine for acute anxiety which is currently paused. Continues on IV Solu-Medrol, and bronchodilators. Patient is currently on IV cardizem gtt for tachycardia and will be transitioned to oral verapamil today, cardiology is following. 07/09/2022 Patient continues to be monitored in intensive care unit. White count elevated up to 12.4 today he has expiratory wheezing on exam changed from yesterday. Patient requiring bipap at 35% FiO2 currently. He did have low grade fever this morning 99 and is receiving acetaminophen as needed. chest xray today showing chronic emphysema and pulmonary fibrotic change. Procalcitonin level elevated at 0.55. IV ceftriaxone increased to 2 gram every 24 hours. Patient is continued on bronchodilators. Continues on IV solumedrol 60 mg q6h. Dexmedetomidine possibly being weaned off today, seroquel and haldol ordered with ativan as needed. Patient continues with significant abdominal distention and absent bowel sounds left lower quadrant. Did not receive lactulose yesterday. General surgery was consulted for further evaluation, currently placed NPO for possible ileus /bowel obstruction. He is hypertensive today with systolic in the 180s has been started on verapamil TID and also hydralazine 50 BID. Cardiology following. 07/10/2022 Patient evaluated today on BiPAP, fio2 has been increased to 40%, he is using accessory muscles to breath and appears quite aggitated. He is on combination of haldol, seroquel for this. Additionally, he was started on nicotine patch and clonidine patch. NG tube has been placed, patient has not had a BM. Abdominal Pelvis CT completed showing no CT evidence for small bowel obstruction. Patient also had follow up chest xray today showing COPD changes and no acute disease. Never the less he appears to have some respiratory distress requiring BiPAP. white count 11.7 today, sodium 149, BUN 47, creatinine 1.05, blood glucose 170s. Patient has been placed on amiodarone infusion and also heparin gtt as patient is unable to take oral medications currently. He continues on antibiotics. Continues on IV solumedrol. 07/11/2022 Patient is monitored in intensive care unit. Continues with NG tube. Tube feedings have been resumed with vital AF 1.2 with goal of 55 mls per hour. Currrently running at 20 mLs/hour. Patient has free water flush 30 mL every 4 hours, would like to increase free water and discontinue IV fluids. Sodium level today 148, potassium 4.1, chloride 110, BUN 51, creatinine 1.08. Blood glucose in the 240s and insulin has been increased. Patient is receiving lactulose, had fleet enema today. Has not had a BM this admission, bowel sounds in all 4 quadrants today. Amiodarone has been discontinued. Continues on oral verapamil. Heart rate is improving. Patient trialed on airvo 60/60 today. Chest xray showing no focal consolidation. 07/12/2022 Patient is evaluated in ICU, family at bedside. Continues on Airvo 60/60, reports non productive cough. Diffuse weakness. Abdomen distended seems worse than yesterday. Discussed with surgery. Tube feedings have been placed on hold a nd patient started on daily suppositories. Otherwise continues on empiric ceftriaxone. Chest xray showing COPD with possible underlying pulmonary vascular congestion. Sodium up to 150 today, nephrology consulted. Patient has been started on D5% water at 75 mls per hour. BUN 55 creatinine 1.22 today. Blood glucose 230s. Heart rate 120s today, blood pressure 130/91, remains afebrile. 07/13/2022 Patient continue in Intensive Care unit. Continues on Airvo 60/60. He reports breathing improved today less short of breath. Lung sounds have improved and increased aeration. Less congested. No BM yet, has been started on dulcolax suppository daily. Increased bowel sounds today and abdomen is less distended. Remains on IV ceftriaxone. White count normalized to 9.9. Sodium remains at 150, BUN 51, creatinine 1.21. Blood glucose 200s. hgb A1c found to be 6.5 consistent with diagnosis of diabetes mellitus type 2. Continues on levemir with sliding scale and scheduled novolog coverage. Remains afebrile, heart rate 87, blood pressure 177/91, oxygen saturation 95%. IV steroids have been decreased today. Continues on oral cardizem, oral verapamil. Continues on D5 water at 75 mls per hour. 07/14/2022 Patient continues to be monitored closely in intensive care unit. He continues on Airvo 45/60, has tolerated weaning and continues to report improvement in work of breathing. No wheezing noted on exam today has some coarse scattered ronchi. NG tube remains in place, he did have BM. Will discuss with surgery if NG tube can be discontinued. Will add nystatin swish today which can be applied manually versus swishing. Patient remains diffusely weak has been on bedrest. No breakdown noted on skin. Continues on oral amiodarone, verapamil, anticoagulated with eliquis. Patient has been maintained on empiric antibiotic coverage with IV ceftriaxone, tomorrow will be day 5. white count has normalized consider discontinuing antibiotics tomorrow. Patient is maintaining sinus rhythm today heart rate 80s, blood pressure 159/78, 93% oxygen saturation, has remained afebrile. Labs today are improving, white count remains within normal limits at 10.4, sodium 142, potassium 4.5, chloride normalized to 104, BUN 48, creatinine 1.08. Blood glucose 160s to 200s. IV fluids have been changed to D5 1/2 NS at 50. Repeat labs tomorrow. Multiple consultations following. PT/OT has been consulted. 07/15/22. Patient seen and examined. Daughter at the bedside. Patient continues to be on heated high flow oxygen. States he feels better. Denies any nausea, vomiting. Case discussed with nursing staff 07/16/22. Patient seen and examined. Stated that he had a panic attack this morning, currently doing much better. Breathing is improving. Denies any chest pain. Continues to be on heated high flow 07/17/22. Patient seen and examined. Continues to be on heated high flow. Does not look any acute distress. 07/18/22. Patient seen and examined. Patient is transferred out of ICU. Currently on 4 L of oxygen. Gets short of breath on exertion. Otherwise patient is doing better compared to yesterday 07/19. Patient seen and examined. Continues to be on 4 L of oxygen. Creatinine has bumped up to 1.9. Gets short of breath on exertion. Patient is very weak 07/20. Patient seen and examined. Still gets short of breath on minimal exertion. Denies any chest pain. Not very keen to get out of the bed. Explained to him that he needs to get out of the bed 07/21. Patient seen and examined. Currently sitting in the chair. States he feels better compared to yesterday. Still complaining of productive cough REVIEW OF SYSTEMS: CONSTITUTIONAL: No fever, no malaise, no fatigue. CARDIOVASCULAR: No chest pain, orthopnea, PND, no palpitations, no syncope. PULMONARY: Complaining of shortness of breath on exertion. no hemoptysis. GASTROINTESTINAL: No diarrhea, no nausea, no vomiting, no abdominal pain. PHYSICAL EXAMINATION: GENERAL: The patient is alert and oriented x3, not in any acute distress. Well developed, well nourished. HEENT: Pupils are round and equally reacting to light. EOMI. No scleral icterus. No conjunctival pallor. Normocephalic, atraumatic. No pharyngeal erythema. No thyromegaly. CARDIOVASCULAR: S1 and S2 present. No murmurs, rubs, or gallops. PULMONARY: Diminished breath sounds at the bases bilaterally. No crackles audible ABDOMEN: Soft, nontender, nondistended, normoactive bowel sounds. No palpable organomegaly. MUSCULOSKELETAL: No joint swelling or deformity. EXTREMITIES: No cyanosis, clubbing, or pedal edema. NEUROLOGICAL: Gross neurological examination did not reveal any focal deficits. SKIN: No rashes. Assessment and plan Acute hypoxic respiratory failure on airvo 45/60 Worsening shortness of breath secondary to acute COPD exacerbation and tracheobronchitis SVT Atrial fibrillation with rapid rate converted to normal sinus rhythm Hypertension Hypernatremia, resolved Metabolic acidosis Acute kidney injury Diabetes Mellitus type 2 A1C 6.5. Ileus, resolving BPH Prior history of smoking History of throat cancer and vocal cord status post radiation 2015 Plan: Monitor electrolytes. Monitor renal functions Continue oxygen supplementation Aggressive pulmonary hygiene Short term amiodarone therapy for one month and then discontinue per cardiology Continue eliquis Continue IV Solu-Medrol. Continue Flomax Continue breathing treatments Gen. surgery evaluated the patient, recommended bowel regimen, they signed off Follow-up on cardiology recommendations Follow-up on pulmonary recommendations Follow-up in nephrology recommendations Objective - Vital Signs Vital signs: Vital Signs Temp 97.4 F L 07/21/22 08:00 Pulse 66 07/21/22 11:58 Resp 16 07/21/22 08:00 BP 93/51 07/21/22 08:00 Pulse Ox 92 L 07/21/22 08:33 FiO2 35 07/17/22 11:06 Intake & Output 07/20/22 07/21/22 07/21/22 18:59 06:59 18:59 Intake Total 5 5 Output Total 1455 500 125 Balance -1450 -500 -120 Weight 87.5 kg Intake: IV 5 5 Invasive Line 9 5 5 Output: Urine 1000 500 125 Straight 450 125 Post Void Residual 455 Other: Voiding Method Urinal Urinal Urinal # Voids 1 # Bowel Movements 2 1 - Labs CBC & Chem 7: 07/21/22 05:28 07/21/22 05:28 Labs: Abnormal Lab Results - Last 24 Hours (Table) 07/20/22 07/20/22 07/21/22 Range/Units 16:53 20:03 05:28 WBC 12.4 H (3.8-10.6) k/uL RBC 3.85 L (4.30-5.90) m/uL Hgb 11.8 L (13.0-17.5) gm/dL Hct 35.2 L (39.0-53.0) % Sodium (137-145) mmol/L BUN (9-20) mg/dL Creatinine (0.66-1.25) mg/dL POC Glucose (mg/dL) 233 H 283 H (70-110) mg/dL Calcium (8.4-10.2) mg/dL ALT (4-49) U/L Total Protein (6.3-8.2) g/dL Albumin (3.5-5.0) g/dL 07/21/22 07/21/22 07/21/22 Range/Units 05:28 06:53 11:18 WBC (3.8-10.6) k/uL RBC (4.30-5.90) m/uL Hgb (13.0-17.5) gm/dL Hct (39.0-53.0) % Sodium 131 L (137-145) mmol/L BUN 97 H (9-20) mg/dL Creatinine 1.85 H (0.66-1.25) mg/dL POC Glucose (mg/dL) 112 H 185 H (70-110) mg/dL Calcium 6.6 L (8.4-10.2) mg/dL ALT 51 H (4-49) U/L Total Protein 4.1 L (6.3-8.2) g/dL Albumin 2.2 L (3.5-5.0) g/dL
--- NOTE | 2022-07-21 14:17 | P.PN ---
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 The patient is currently being seen in the intensive care unit for alcohol withdrawal was and hypoxic respiratory failure. This morning, is awake and alert and there is no significant agitation. He remains on high flow oxygen at 45 L with an FiO2 of 56%. His current pulse ox is around 89%. Note that he had a CT angiogram at time of admission that showed no evidence of any pulmonary embolism. It showed emphysema and mild portal fibrosis. His resting comfortably in bed. He has no significant shortness of breath at rest. The same time, the patient has been in normal sinus rhythm. Noted at the time of admission, he was in atrial fibrillation and he was treated with a Cardizem drip and currently is off the drip. He is also off Precedex for now. Neurologically, he is alert and oriented 3. His most recent chest x-ray from yesterday showing some atelec tatic changes in the lung bases and emphysema. Otherwise no other major abnormalities are noted. In terms of treatment, the patient is currently on DuoNeb about treatments [id number], he is on Pulmicort Respules 1 mg twice a day, he is on IV Solu-Medrol 40 mg every 6 hours. Is also on performance 1 nevertheless treatment twice a day. He is covered with antibiotics and the patient is receiving Rocephin 2 g every 24 hours. His blood cultures from this admission is negative. The white cell count is at 12 with a hemoglobin of 14.7 and a platelet count of 188. BUN is 44 with a creatinine of 1.1 and sodium levels of 137. In terms of his viral screen, the patient had a negative Covid 19 infection. Influenza screen was negative at the time of admission. On today's evaluation of 07/16/2022, the patient remains on high flow oxygen at 45 L with an FiO2 of 50%. The patient is feeling better and less short of breath compared to yesterday. No significant cough or sputum production. The patient was offered an incentive spirometer and the patient is able to generate adequate volumes on the incentive spirometer, nevertheless, the values remain less than 500 mL. The patient is on IV Rocephin. The patient was growing Haemophilus influenza in his sputum. At the same time, the patient remains on bronchodilators and he is on DuoNeb neb blotchiness 4 times a day, he is on a combination of Perforomist and Pulmicort neb less treatments twice a day and IV Solu-Medrol and the doses 40 mg IV every 6 hours. He was started on diuretics and to dose of Lasix will be given to him today. In terms of his blood work, his sodium level is at 137 with a potassium level of 4.4, BUN of 44 with a creatinine of 1.05 with RBC count of 12 a hemoglobin 14.8 and a platelet count of 148. LFTs are essentially within normal limits. On today's evaluation of 07/17/2022, the patient has no specific complaints. The patient is gradually improving. This morning, the patient was weaned down to 40 liters with an FiO2 of 35% high flow oxygen. The patient is otherwise doing well. He is using the incentive spirometer. He is still coughing and his cough is congested. Unable to bring up much sputum. He was diuresis yesterday and he has been negative fluid balance for now. BUN is a 53 with a creatinine of 1.29 his sodium levels is 135. The patient's WBC count is at 16.4 with a hemoglobin of 14.5. Remains on DuoNeb about treatments [id number]. Remains on IV Solu-Medrol. No altered mentation. No chest pain. Remains quite weak and his been having generalized global weakness. He is on Levemir 14 units daily twice a day and the patient is on NovoLog 40 units with meals and a sliding scale coverage. No altered mentation. No other new complaints. 07/18/2022, patient is doing well. The patient has been taken off the high flow oxygen the patient is currently on 4 L of O2 nasal cannula. No new complaints. IV Solu-Medrol was then tapered down to 20 mg every 8 hours. Limited cough. No significant congestion. So bronchospastic and wheezy. Air entry is quite limited in the lung bases bilaterally. He has advanced COPD.Transferred out of the intensive care unit yesterday. He is using the incentive spirometer. On his blood work, the patient has a white cell count of 8.9 with a hemoglobin of 12.4 count of 264. The patient has a BUN of 17 with a creatinine of 0.6 and his sodium level is 145. LFTs are normal. On 07/19/2022, I'm seeing the patient for a follow-up. The patient is currently on 4 L of oxygen by nasal cannula. No new complaints. He remains on IV Solu- Medrol 40 mg every 6 hours. He remains on DuoNeb about treatments on the clock. He is still very weak and he may need rehabilitation. He was transferred out of the intensive care unit few days back. echoes at 70 with a hemoglobin of 15.3 and a platelet count of 202. BUN is at 80 with a creatinine of 1.9 and there is a slight rise in the creatinine compared to yesterday's blood work. This is probably related to diuresis. 07/20/2022, the patient is still on 4 L of Oxymizer nasal cannula. Overall respiratory status is stable. Nevertheless, the patient was having some issues with obstructive uropathy. The lan analyst was consulted. The patient is having frequent bladder scans. Flomax was also added to the regimen at a dose of 0.4 mg on a daily basis. The patient's creatinine currently is at 1.9 and the BUN is 89 with a sodium level of 133. Diuretics were held. echoes at 60 with a hemoglobin 12.7. Potassium is at 4.8. LFTs are normal. The patient remains on DuoNeb about treatments [id number]. The patient remains on IV Solu-Medrol at a dose of 40 mg every 6 hours. No diuretics for now. 07/21/2022, the patient remains on 4 L of O2 nasal cannula. He was able to sit up on a recliner for next 10. Time yesterday. He stated a Roajs catheter in place. Creatinine is being monitored. he remains on DuoNeb neb on the clock is also on IV Solu-Medrol was tapered down to 40 mg every 6 hours. The patient started developing some colored mucus and for that reason, another sputum analysis will be done today. His tolerating diet. His oral intake is gradually improving. He is quite weak and debilitated. He may need an ECF placement at a later stage. No other new complaints for now. Family is at the bedside. I lengthy discussion with the patient's family The blood work from today shows a white cell count of 12.4 with a hemoglobin of 11.8. Sodium is at 131, BUN is 97 with a creatinine of 1.85 and the rest of the liver function tests are essentially within normal limits. Objective - Vital Signs Vital signs: Vital Signs Temp 97.4 F L 07/21/22 08:00 Pulse 66 07/21/22 11:58 Resp 16 07/21/22 08:00 BP 93/51 07/21/22 08:00 Pulse Ox 92 L 07/21/22 08:33 FiO2 35 07/17/22 11:06 Intake & Output 07/20/22 07/21/22 07/21/22 18:59 06:59 18:59 Intake Total 5 5 Output Total 1455 500 125 Balance -1450 -500 -120 Weight 87.5 kg Intake: IV 5 5 Invasive Line 9 5 5 Output: Urine 1000 500 125 Straight 450 125 Post Void Residual 455 Other: Voiding Method Urinal Urinal Urinal # Voids 1 # Bowel Movements 2 1 - Exam No acute distress, much more calm today, currently on AIRVO. HEENT examination is grossly unremarkable. Neck supple. Full range of motion. No adenopathy thyromegaly or neck vein distention. Cardiovascular examination reveals regular rhythm rate. S1-S2 normal. No S3 or S4. No discernible murmur noted. Heart sounds are distant. Lungs reveal bilateral coarse inspiratory expiratory rhonchi, and expiratory wheezes. No crackles. Saturations are 90 % on AIRVO. Abdomen soft, without bowel sounds. No masses or tenderness. Extremities are intact. No cyanosis clubbing or edema. Skin is without rash or lesion.Examination of the skin revealed no evidence of significant rashes, suspicious appearing nevi or other concerning lesions. Neurologic examination Neurologically, the patient is awake and alert and the patient does not have any focal neurological deficit. Cranial nerves are essentially intact. - Labs CBC & Chem 7: 07/21/22 05:28 07/21/22 05:28 Labs: Abnormal Lab Results - Last 24 Hours (Table) 07/20/22 07/20/22 07/21/22 Range/Units 16:53 20:03 05:28 WBC 12.4 H (3.8-10.6) k/uL RBC 3.85 L (4.30-5.90) m/uL Hgb 11.8 L (13.0-17.5) gm/dL Hct 35.2 L (39.0-53.0) % Sodium (137-145) mmol/L BUN (9-20) mg/dL Creatinine (0.66-1.25) mg/dL POC Glucose (mg/dL) 233 H 283 H (70-110) mg/dL Calcium (8.4-10.2) mg/dL ALT (4-49) U/L Total Protein (6.3-8.2) g/dL Albumin (3.5-5.0) g/dL 07/21/22 07/21/22 07/21/22 Range/Units 05:28 06:53 11:18 WBC (3.8-10.6) k/uL RBC (4.30-5.90) m/uL Hgb (13.0-17.5) gm/dL Hct (39.0-53.0) % Sodium 131 L (137-145) mmol/L BUN 97 H (9-20) mg/dL Creatinine 1.85 H (0.66-1.25) mg/dL POC Glucose (mg/dL) 112 H 185 H (70-110) mg/dL Calcium 6.6 L (8.4-10.2) mg/dL ALT 51 H (4-49) U/L Total Protein 4.1 L (6.3-8.2) g/dL Albumin 2.2 L (3.5-5.0) g/dL Assessment and Plan Plan: Acute hypoxemic respiratory failure secondary to COPD exacerbation and the patient presented with acute hypoxic and hypercapnic respiratory failure. Most recent blood gases from 07/10/2022 showed improvement in the acid base status. He was on BiPAP and subsequently was switched to high flow oxygen. Oxygenation has improved. Chest x-ray showing atelectatic changes a lung base bilaterally. The patient remains on 4 liters nasal cannula and he was taken off the high flow oxygen. Severe COPD and the patient has an FEV1 of 39% of predicted at baseline and this is based on spirometry that was done on 09/28/2020. The patient has been maintained on Advair and DuoNeb about treatments [id number].. Possible acute withdrawal, from either tobacco and/or alcohol. Acute kidney injury and the creatinine is up to 1.9 Acute tracheobronchitis. Supraventricular tachycardia/atrial fibrillation with RVR. Patient is currently on normal sinus rhythm. The patient is also on anticoagulation with Eliquis. The patient has a normal LV function Acute hypernatremia, recovered History of laryngeal carcinoma, in remission, status post radiation treatment, diagnosed in 2017. Acute hypercapnic respiratory failure secondary to severe COPD. Plan Clinically stable. 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 The priority is to improve the patient's vaccination for now. Aggressive use of incentive spirometer. We'll continue to follow. Involved physical therapy Repeat labs in the morning We'll continue to follow
[2022-07-21 16:56] LABS: Glucose,Whole Blood 179 mg/dL (70-110)
[2022-07-21 19:17] LABS: Glucose,Whole Blood 113 mg/dL (70-110)
[2022-07-21] MEDS: ATORVASTATIN 10 MG TAB PO SCH (21:59)
[2022-07-21] MEDS: ALPRAZolam 0.5 MG TAB PO PRN (22:07)
[2022-07-22] MEDS ORDERED: SODIUM CHLORIDE 0.9% 500 ML 500 ML IV ONE ×2 (02:19→20:21)
[2022-07-22 02:20] LABS: HCT 33.2 % (39.0-53.0); HGB 11.3 gm/dL (13.0-17.5); MCHC 34.2 g/dL (31.0-37.0); MCV 90.6 fL (80.0-100.0); Mean Platelet Volume 7.7; Platelet Count 197 k/uL (150-450); RBC 3.66 m/uL (4.30-5.90); RDW 11.8 % (11.5-15.5); WBC 10.9 k/uL (3.8-10.6)
[2022-07-22 02:30] LABS: Glucose,Whole Blood 127 mg/dL (70-110)
[2022-07-22] MEDS: methylPREDNISolone SOD SUCCI 40 MG/ML 1 ML VIAL IV SCH ×2 (02:35→09:08)
[2022-07-22 06:26] LABS: Glucose,Whole Blood 114 mg/dL (70-110)
[2022-07-22] MEDS: INSULIN ASPART (NovoLOG) 100 UNIT/ML VIAL SQ SCH ×8 (06:27→20:36)
[2022-07-22] MEDS: INSULIN DETEMIR (LEVEMIR) 100 UNIT/ML SYR SQ SCH ×2 (06:49→20:38)
[2022-07-22] MEDS: BUDESONIDE 1 MG/2 ML NEBU INHALATION SCH ×2 (08:36→20:36)
[2022-07-22] MEDS: FORMOTEROL FUMARATE 20 MCG/2 ML NEBU INHALATION SCH ×2 (08:36→20:35)
[2022-07-22] MEDS: IPRATROPIUM-ALBUTEROL 3 ML NEB INHALATION SCH ×4 (08:36→20:35)
[2022-07-22] MEDS: AMIODARONE 200 MG TAB PO SCH ×2 (09:04→20:35)
[2022-07-22] MEDS: VERAPAMIL SR 240 MG TABLET.ER PO SCH (09:05)
[2022-07-22 09:16] LABS: HCT 36.9 % (39.0-53.0); HGB 12.6 gm/dL (13.0-17.5); MCH 30.9 pg (25.0-35.0); MCHC 34.2 g/dL (31.0-37.0); MCV 90.3 fL (80.0-100.0); Mean Platelet Volume 7.8; Platelet Count 257 k/uL (150-450); RBC 4.09 m/uL (4.30-5.90); RDW 11.8 % (11.5-15.5); WBC 13.7 k/uL (3.8-10.6)
[2022-07-22] MEDS: bisacodyL 10 MG SUPP RECTAL SCH (10:14)
[2022-07-22] MEDS: NYSTATIN 100,000 UNIT/ML SUSP 500,000 UNIT/5 ML CUP PO SCH ×4 (10:14→20:36)
[2022-07-22] MEDS: FAMOTIDINE 20 MG TAB PO SCH (10:14)
[2022-07-22] MEDS: TAMSULOSIN 0.4 MG CAP.ER.24H PO SCH (10:14)
[2022-07-22 11:17] LABS: ALT 53 U/L (4-49); AST 34 U/L (17-59); African American GFR (CKD) 37 (>60 ml/min/1.73 sqM); Albumin 2.6 g/dL (3.5-5.0); Albumin/Globulin Ratio 1.3; Alkaline Phosphatase 65 U/L (38-126); Anion Gap 5 mmol/L; Calcium 6.7 mg/dL (8.4-10.2); Carbon Dioxide 28 mmol/L (22-30); Chloride 99 mmol/L (98-107); Glucose 139 mg/dL (74-99); Non-African American GFR(CKD) 32 (>60 ml/min/1.73 sqM); Potassium 5.7 mmol/L (3.5-5.1); Sodium 132 mmol/L (137-145); Total Bilirubin 1.1 mg/dL (0.2-1.3); Total Protein 4.6 g/dL (6.3-8.2)
[2022-07-22 11:22] LABS: Blood Urea Nitrogen 105 mg/dL (9-20)
[2022-07-22 11:29] LABS: Glucose,Whole Blood 131 mg/dL (70-110)
--- NOTE | 2022-07-22 12:32 | P.PN ---
Subjective Patient is seen for follow-up for acute kidney injury and hypernatremia. Patient was noted to have significant urine retention and currently has an indwelling Rojas catheter. Systolic blood pressure remains on the lower side around 91-85 mmHg 1100 mL of urine noted on 24-hour output Currently not on any IV fluids or diuretics. Potassium was 5.7 today Objective - Vital Signs Vital signs: Vital Signs Temp 97.7 F 07/22/22 08:00 Pulse 72 07/22/22 11:45 Resp 18 07/22/22 09:08 BP 91/48 07/22/22 08:00 Pulse Ox 90 L 07/22/22 08:00 FiO2 35 07/17/22 11:06 Intake & Output 07/21/22 07/22/22 07/22/22 18:59 06:59 18:59 Intake Total 5 Output Total 125 1100 Balance -120 -1100 Weight 86 kg Intake: IV 5 Invasive Line 9 5 Output: Urine 125 1100 Straight 125 1100 Other: Voiding Method Urinal Indwelling Catheter Indwelling Catheter # Voids 1 # Bowel Movements 1 1 - Exam Awake, comfortable, no acute distress Examination of the heart S1 and S2 Examination lungs decreased breath sounds at the bases Abdomen is soft nontender Examination lower extremity shows edema 1+ bilaterally RING FACER exam grossly intact - Labs CBC & Chem 7: 07/22/22 08:58 07/22/22 10:33 Labs: Abnormal Lab Results - Last 24 Hours (Table) 07/21/22 07/21/22 07/22/22 Range/Units 16:54 19:15 01:56 WBC 10.9 H (3.8-10.6) k/uL RBC 3.66 L (4.30-5.90) m/uL Hgb 11.3 L (13.0-17.5) gm/dL Hct 33.2 L (39.0-53.0) % Sodium (137-145) mmol/L Potassium (3.5-5.1) mmol/L BUN (9-20) mg/dL Creatinine (0.66-1.25) mg/dL Glucose (74-99) mg/dL POC Glucose (mg/dL) 179 H 113 H (70-110) mg/dL Calcium (8.4-10.2) mg/dL ALT (4-49) U/L Total Protein (6.3-8.2) g/dL Albumin (3.5-5.0) g/dL 07/22/22 07/22/22 07/22/22 Range/Units 02:26 06:25 08:58 WBC 13.7 H (3.8-10.6) k/uL RBC 4.09 L (4.30-5.90) m/uL Hgb 12.6 L (13.0-17.5) gm/dL Hct 36.9 L (39.0-53.0) % Sodium (137-145) mmol/L Potassium (3.5-5.1) mmol/L BUN (9-20) mg/dL Creatinine (0.66-1.25) mg/dL Glucose (74-99) mg/dL POC Glucose (mg/dL) 127 H 114 H (70-110) mg/dL Calcium (8.4-10.2) mg/dL ALT (4-49) U/L Total Protein (6.3-8.2) g/dL Albumin (3.5-5.0) g/dL 07/22/22 07/22/22 Range/Units 10:33 11:27 WBC (3.8-10.6) k/uL RBC (4.30-5.90) m/uL Hgb (13.0-17.5) gm/dL Hct (39.0-53.0) % Sodium 132 L (137-145) mmol/L Potassium 5.7 H (3.5-5.1) mmol/L BUN 105 H* (9-20) mg/dL Creatinine 2.08 H (0.66-1.25) mg/dL Glucose 139 H (74-99) mg/dL POC Glucose (mg/dL) 131 H (70-110) mg/dL Calcium 6.7 L (8.4-10.2) mg/dL ALT 53 H (4-49) U/L Total Protein 4.6 L (6.3-8.2) g/dL Albumin 2.6 L (3.5-5.0) g/dL Microbiology - Last 24 Hours (Table) 07/21/22 10:10 Gram Stain - Preliminary Sputum Sputum Culture - Preliminary Assessment and Plan Assessment: 1. Acute kidney injury secondary to combination of low blood pressure as well as possible prostatism with bladder scan showing 400 mL to 600 mL residual requiring straight cath. Blood pressure medications were reduced significantly, Blood pressure remains on the lower side. 2. Ileus. Resolved. 3. A. fib. Cardiology following. Rate controlled. 4. Diabetes mellitus. 5. Neurogenic bladder Rojas catheter inserted last night 07/20/2022, started on Flomax Plan: Add midodrine Lokelma x1 repeat labs in a.m.
[2022-07-22] MEDS ORDERED: HALOPERIDOL LACTATE 5 MG/ML 1 ML VIAL IVP PRN (12:47)
[2022-07-22] MEDS ORDERED: SODIUM ZIRCONIUM CYCLOSILICATE 10 GM PACKET PO ONE (12:48)
--- NOTE | 2022-07-22 13:56 | P.PN ---
Subjective Progress Note Date: 07/22/22 CHIEF COMPLAINT: Ileus in HISTORY OF PRESENT ILLNESS: Patient admitted to the hospital with shortness of breath evidence of COPD exacerbation, bronchitis and SVT. Surgical service initially consulted regarding an abdominal ileus. The ileus resolved. Surgical service has been re-consulted in regards to maroon-colored stools. Hemoglobin is 11.3. On admission hemoglobin was around 14 and 13. Stool for occult blood is positive. Patient has never had a colonoscopy. Patient's anticoagulation has been discontinued. Patient seen and examined with Dr. Gilliam PHYSICAL EXAM: VITAL SIGNS: Reviewed. GENERAL: Well-developed in no acute distress. ABDOMEN: Soft. distended. Mild discomfort with palpation of the umbilicus area NEUROLOGIC: Awake and alert ASSESSMENT: 1. GI bleed with maroon stools 2. Ileus resolved 2. Acute COPD exacerbation with acute hypoxic respiratory failure 3. SVT and AFIB PLAN: -Patient scheduled for EGD and colonoscopy on 07/24/[address] gilliam -Start clear liquid diet tomorrow -Start Full liquid diet tonight -Start GoLYTELY prep tomorrow -Continue to monitor for any signs or symptoms of bleeding -Continue to monitor hemoglobin Physician Order Puller note has been reviewed by physician. Signing provider agrees with the documented findings, assessment, and plan of care. Objective - Vital Signs Vital signs: Vital Signs Temp 97.7 F 07/22/22 08:00 Pulse 75 07/22/22 09:04 Resp 18 07/22/22 08:00 BP 91/48 07/22/22 08:00 Pulse Ox 90 L 07/22/22 08:00 FiO2 35 07/17/22 11:06 Intake & Output 07/21/22 07/22/22 07/22/22 18:59 06:59 18:59 Intake Total 5 Output Total 125 Balance -120 Weight 86 kg Intake: IV 5 Invasive Line 9 5 Output: Urine 125 Straight 125 Other: Voiding Method Urinal Indwelling Catheter # Voids 1 # Bowel Movements 1 1 - Labs CBC & Chem 7: 07/22/22 08:58 07/22/22 10:33 Labs: Abnormal Lab Results - Last 24 Hours (Table) 07/21/22 07/21/22 07/21/22 Range/Units 11:18 16:54 19:15 WBC (3.8-10.6) k/uL RBC (4.30-5.90) m/uL Hgb (13.0-17.5) gm/dL Hct (39.0-53.0) % POC Glucose (mg/dL) 185 H 179 H 113 H (70-110) mg/dL 07/22/22 07/22/22 07/22/22 Range/Units 01:56 02:26 06:25 WBC 10.9 H (3.8-10.6) k/uL RBC 3.66 L (4.30-5.90) m/uL Hgb 11.3 L (13.0-17.5) gm/dL Hct 33.2 L (39.0-53.0) % POC Glucose (mg/dL) 127 H 114 H (70-110) mg/dL 07/22/22 Range/Units 08:58 WBC 13.7 H (3.8-10.6) k/uL RBC 4.09 L (4.30-5.90) m/uL Hgb 12.6 L (13.0-17.5) gm/dL Hct 36.9 L (39.0-53.0) % POC Glucose (mg/dL) (70-110) mg/dL Microbiology - Last 24 Hours (Table) 07/21/22 10:10 Gram Stain - Preliminary Sputum Sputum Culture - Preliminary
[2022-07-22] MEDS ORDERED: MIDODRINE 5 MG TAB PO STA (14:59)
--- NOTE | 2022-07-22 15:20 | P.PN ---
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 Patient tried breathing treatments at home without much relief. Patient was tachycardic on admission with heart rate in 160s and was found to be SVT patient was given Ellenson in the ER. Otherwise denied any complaints of chest pain. No nausea vomiting or abdominal pain. Denied any increased leg swelling. No fever no chills. No prior history of SVT. Chest x-ray showed COPD. No active cardiopulmonary disease. Mild pulmonary fibrotic changes. No significant change. CTA chest showed no evidence of PE. Emphysema and mild pulmonary fibrosis. No suspicious pulmonary mass. Laboratory data showed WBC 16.0 hemoglobin 16.0 and platelets 269 Sodium 139 potassium four-point 102 bicarb is 20 BUN 16 and creatinine 0.87 and lactic acid 2.7 Troponin x1 negative and proBNP is 378 TSH 0.49 6 Coronavirus and influenza AMB not detected. Urinalysis is negative for infection. 07/08/2022 Patient continues to be monitored in intensive care unit mostly on BiPAP support but able to be weaned to 3 to 4 L of oxygen via nasal cannula. He is unsure when he has had bowel movement and has limited to no bowel sounds for this reason abdominal xray has been performed showing mildly distended small bowel loops and some segments of colon as well. Consider generalized ileus and difficult to exclude the possibility of a distal colonic obstruction. White blood cell count today 6.1, sodium 144, potassium 4.6, BUN 40, creatinine 0.99, blood glucose 150, magnesium 2.4. Procalcitonin 0.55. Vitals today, patient is afebrile, heart rate 71, blood pressure 121/64, 95% oxygen saturation. Patient has been maintained on dexmedetomidine for acute anxiety which is currently paused. Continues on IV Solu-Medrol, and bronchodilators. Patient is currently on IV cardizem gtt for tachycardia and will be transitioned to oral verapamil today, cardiology is following. 07/09/2022 Patient continues to be monitored in intensive care unit. White count elevated up to 12.4 today he has expiratory wheezing on exam changed from yesterday. Patient requiring bipap at 35% FiO2 currently. He did have low grade fever this morning 99 and is receiving acetaminophen as needed. chest xray today showing chronic emphysema and pulmonary fibrotic change. Procalcitonin level elevated at 0.55. IV ceftriaxone increased to 2 gram every 24 hours. Patient is continued on bronchodilators. Continues on IV solumedrol 60 mg q6h. Dexmedetomidine possibly being weaned off today, seroquel and haldol ordered with ativan as needed. Patient continues with significant abdominal distention and absent bowel sounds left lower quadrant. Did not receive lactulose yesterday. General surgery was consulted for further evaluation, currently placed NPO for possible ileus /bowel obstruction. He is hypertensive today with systolic in the 180s has been started on verapamil TID and also hydralazine 50 BID. Cardiology following. 07/10/2022 Patient evaluated today on BiPAP, fio2 has been increased to 40%, he is using accessory muscles to breath and appears quite aggitated. He is on combination of haldol, seroquel for this. Additionally, he was started on nicotine patch and clonidine patch. NG tube has been placed, patient has not had a BM. Abdominal Pelvis CT completed showing no CT evidence for small bowel obstruction. Patient also had follow up chest xray today showing COPD changes and no acute disease. Never the less he appears to have some respiratory distress requiring BiPAP. white count 11.7 today, sodium 149, BUN 47, creatinine 1.05, blood glucose 170s. Patient has been placed on amiodarone infusion and also heparin gtt as patient is unable to take oral medications currently. He continues on antibiotics. Continues on IV solumedrol. 07/11/2022 Patient is monitored in intensive care unit. Continues with NG tube. Tube feedings have been resumed with vital AF 1.2 with goal of 55 mls per hour. Currrently running at 20 mLs/hour. Patient has free water flush 30 mL every 4 hours, would like to increase free water and discontinue IV fluids. Sodium level today 148, potassium 4.1, chloride 110, BUN 51, creatinine 1.08. Blood glucose in the 240s and insulin has been increased. Patient is receiving lactulose, had fleet enema today. Has not had a BM this admission, bowel sounds in all 4 quadrants today. Amiodarone has been discontinued. Continues on oral verapamil. Heart rate is improving. Patient trialed on airvo 60/60 today. Chest xray showing no focal consolidation. 07/12/2022 Patient is evaluated in ICU, family at bedside. Continues on Airvo 60/60, reports non productive cough. Diffuse weakness. Abdomen distended seems worse than yesterday. Discussed with surgery. Tube feedings have been placed on hold a nd patient started on daily suppositories. Otherwise continues on empiric ceftriaxone. Chest xray showing COPD with possible underlying pulmonary vascular congestion. Sodium up to 150 today, nephrology consulted. Patient has been started on D5% water at 75 mls per hour. BUN 55 creatinine 1.22 today. Blood glucose 230s. Heart rate 120s today, blood pressure 130/91, remains afebrile. 07/13/2022 Patient continue in Intensive Care unit. Continues on Airvo 60/60. He reports breathing improved today less short of breath. Lung sounds have improved and increased aeration. Less congested. No BM yet, has been started on dulcolax suppository daily. Increased bowel sounds today and abdomen is less distended. Remains on IV ceftriaxone. White count normalized to 9.9. Sodium remains at 150, BUN 51, creatinine 1.21. Blood glucose 200s. hgb A1c found to be 6.5 consistent with diagnosis of diabetes mellitus type 2. Continues on levemir with sliding scale and scheduled novolog coverage. Remains afebrile, heart rate 87, blood pressure 177/91, oxygen saturation 95%. IV steroids have been decreased today. Continues on oral cardizem, oral verapamil. Continues on D5 water at 75 mls per hour. 07/14/2022 Patient continues to be monitored closely in intensive care unit. He continues on Airvo 45/60, has tolerated weaning and continues to report improvement in work of breathing. No wheezing noted on exam today has some coarse scattered ronchi. NG tube remains in place, he did have BM. Will discuss with surgery if NG tube can be discontinued. Will add nystatin swish today which can be applied manually versus swishing. Patient remains diffusely weak has been on bedrest. No breakdown noted on skin. Continues on oral amiodarone, verapamil, anticoagulated with eliquis. Patient has been maintained on empiric antibiotic coverage with IV ceftriaxone, tomorrow will be day 5. white count has normalized consider discontinuing antibiotics tomorrow. Patient is maintaining sinus rhythm today heart rate 80s, blood pressure 159/78, 93% oxygen saturation, has remained afebrile. Labs today are improving, white count remains within normal limits at 10.4, sodium 142, potassium 4.5, chloride normalized to 104, BUN 48, creatinine 1.08. Blood glucose 160s to 200s. IV fluids have been changed to D5 1/2 NS at 50. Repeat labs tomorrow. Multiple consultations following. PT/OT has been consulted. 07/15/22. Patient seen and examined. Daughter at the bedside. Patient continues to be on heated high flow oxygen. States he feels better. Denies any nausea, vomiting. Case discussed with nursing staff 07/16/22. Patient seen and examined. Stated that he had a panic attack this morning, currently doing much better. Breathing is improving. Denies any chest pain. Continues to be on heated high flow 07/17/22. Patient seen and examined. Continues to be on heated high flow. Does not look any acute distress. 07/18/22. Patient seen and examined. Patient is transferred out of ICU. Currently on 4 L of oxygen. Gets short of breath on exertion. Otherwise patient is doing better compared to yesterday 07/19. Patient seen and examined. Continues to be on 4 L of oxygen. Creatinine has bumped up to 1.9. Gets short of breath on exertion. Patient is very weak 07/20. Patient seen and examined. Still gets short of breath on minimal exertion. Denies any chest pain. Not very keen to get out of the bed. Explained to him that he needs to get out of the bed 07/21. Patient seen and examined. Currently sitting in the chair. States he feels better compared to yesterday. Still complaining of productive cough 07/22/2022 Patient monitored sitting up in chair today. He continues on 4L nasal cannula. Hypotensive today blood pressures in the 80s systolic. He did receive a 1L fluid bolus skiver uppers or linings and has been started on midodrine. Verapamil has been placed on hold. Creatinine increased up to 2.08 today, most likely from acute hypotensive episode. He continues in sinus rhythm heart rate in the 70s. Potassium 5.7, sodium 132. Sputum culture pending. Review of Systems Constitutional: Reports fatigue denied any fever. Cardio vascular: denied any chest pain, palpitations Gastrointestinal: denied any nausea, vomiting, diarrhea Pulmonary: Denied any shortness of breath cough Neurologic denied any new focal deficits All inpatient medications were reviewed and appropriate changes in these medications as dictated in the interval history and assessment and plan. PHYSICAL EXAMINATION: GENERAL: The patient is alert and oriented x3, not in any acute distress. Well developed, well nourished. HEENT: Pupils are round and equally reacting to light. EOMI. No scleral icterus. No conjunctival pallor. Normocephalic, atraumatic. No pharyngeal erythema. No thyromegaly. CARDIOVASCULAR: S1 and S2 present. No murmurs, rubs, or gallops. PULMONARY: Diminished breath sounds at the bases bilaterally. No crackles audible ABDOMEN: Soft, nontender, distended, normoactive bowel sounds. No palpable organomegaly. Round, obese. MUSCULOSKELETAL: No joint swelling or deformity. EXTREMITIES: No cyanosis, clubbing, or pedal edema. NEUROLOGICAL: Gross neurological examination did not reveal any focal deficits. Diffuse generalized weakness. SKIN: No rashes. Assessment and plan Worsening shortness of breath secondary to acute COPD exacerbation and tracheobronchitis, improving Acute hypoxemic respiratory failure secondary to above, has been weaned off BiPAP/Airvo support and currently on 4L nasal cannula SVT/Atrial fibrillation with rapid rate converted to normal sinus rhythm Hypertension currently hypotensive Hypernatremia, resolved currently hyponatremic Metabolic acidosis resolved Acute kidney injury, initially resolved, creatinine up to 2.08 from hypotension and component of urinary retention Urinary retention with indwelling greenfield catheter Diabetes Mellitus type 2 A1C 6.5. Ileus, resolved BPH Prior history of smoking History of throat cancer and vocal cord status post radiation 2016 GI prophylaxis DVT prophylaxis Full Code Plan: Continue oxygen supplementation, aggressive pulmonary hygiene Short term amiodarone therapy for one month and then discontinue per cardiology Patient started on midodrine, verapamil on hold. Lokelma x 1 today Continue Flomax, indwelling catheter Continue bowel regimen, general surgery signed off Repeat BMP in AM The impression and plan of care has been dictated by Maria De Jesus Mccoy, Nurse Practitioner as directed. Dr. Alison MD I have performed a history and physical examination and medical decision making of this patient, discussed the same with the dictator, and agree with the dictators assessment and plan as written, documented as a scribe. Based on total visit time, I have performed more than 50% of this visit. Objective - Vital Signs Vital signs: Vital Signs Temp 97.7 F 07/22/22 08:00 Pulse 72 07/22/22 11:45 Resp 18 07/22/22 09:08 BP 91/48 07/22/22 08:00 Pulse Ox 90 L 07/22/22 08:00 FiO2 35 07/17/22 11:06 Intake & Output 07/21/22 07/22/22 07/22/22 18:59 06:59 18:59 Intake Total 5 Output Total 125 1100 Balance -120 -1100 Weight 86 kg Intake: IV 5 Invasive Line 9 5 Output: Urine 125 1100 Straight 125 1100 Other: Voiding Method Urinal Indwelling Catheter Indwelling Catheter # Voids 1 # Bowel Movements 1 1 - Labs CBC & Chem 7: 07/22/22 08:58 07/22/22 10:33 Labs: Abnormal Lab Results - Last 24 Hours (Table) 07/21/22 07/21/22 07/22/22 Range/Units 16:54 19:15 01:56 WBC 10.9 H (3.8-10.6) k/uL RBC 3.66 L (4.30-5.90) m/uL Hgb 11.3 L (13.0-17.5) gm/dL Hct 33.2 L (39.0-53.0) % Sodium (137-145) mmol/L Potassium (3.5-5.1) mmol/L BUN (9-20) mg/dL Creatinine (0.66-1.25) mg/dL Glucose (74-99) mg/dL POC Glucose (mg/dL) 179 H 113 H (70-110) mg/dL Calcium (8.4-10.2) mg/dL ALT (4-49) U/L Total Protein (6.3-8.2) g/dL Albumin (3.5-5.0) g/dL 07/22/22 07/22/22 07/22/22 Range/Units 02:26 06:25 08:58 WBC 13.7 H (3.8-10.6) k/uL RBC 4.09 L (4.30-5.90) m/uL Hgb 12.6 L (13.0-17.5) gm/dL Hct 36.9 L (39.0-53.0) % Sodium (137-145) mmol/L Potassium (3.5-5.1) mmol/L BUN (9-20) mg/dL Creatinine (0.66-1.25) mg/dL Glucose (74-99) mg/dL POC Glucose (mg/dL) 127 H 114 H (70-110) mg/dL Calcium (8.4-10.2) mg/dL ALT (4-49) U/L Total Protein (6.3-8.2) g/dL Albumin (3.5-5.0) g/dL 07/22/22 07/22/22 Range/Units 10:33 11:27 WBC (3.8-10.6) k/uL RBC (4.30-5.90) m/uL Hgb (13.0-17.5) gm/dL Hct (39.0-53.0) % Sodium 132 L (137-145) mmol/L Potassium 5.7 H (3.5-5.1) mmol/L BUN 105 H* (9-20) mg/dL Creatinine 2.08 H (0.66-1.25) mg/dL Glucose 139 H (74-99) mg/dL POC Glucose (mg/dL) 131 H (70-110) mg/dL Calcium 6.7 L (8.4-10.2) mg/dL ALT 53 H (4-49) U/L Total Protein 4.6 L (6.3-8.2) g/dL Albumin 2.6 L (3.5-5.0) g/dL Microbiology - Last 24 Hours (Table) 07/21/22 10:10 Gram Stain - Preliminary Sputum Sputum Culture - Preliminary Assessment and Plan Time with Patient: Less than 30
--- NOTE | 2022-07-22 15:35 | P.PN ---
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 The patient is currently being seen in the intensive care unit for alcohol withdrawal was and hypoxic respiratory failure. This morning, is awake and alert and there is no significant agitation. He remains on high flow oxygen at 45 L with an FiO2 of 56%. His current pulse ox is around 89%. Note that he had a CT angiogram at time of admission that showed no evidence of any pulmonary embolism. It showed emphysema and mild portal fibrosis. His resting comfortably in bed. He has no significant shortness of breath at rest. The same time, the patient has been in normal sinus rhythm. Noted at the time of admission, he was in atrial fibrillation and he was treated with a Cardizem drip and currently is off the drip. He is also off Precedex for now. Neurologically, he is alert and oriented 3. His most recent chest x-ray from yesterday showing some atelec tatic changes in the lung bases and emphysema. Otherwise no other major abnormalities are noted. In terms of treatment, the patient is currently on DuoNeb about treatments [id number], he is on Pulmicort Respules 1 mg twice a day, he is on IV Solu-Medrol 40 mg every 6 hours. Is also on performance 1 nevertheless treatment twice a day. He is covered with antibiotics and the patient is receiving Rocephin 2 g every 24 hours. His blood cultures from this admission is negative. The white cell count is at 12 with a hemoglobin of 14.7 and a platelet count of 188. BUN is 44 with a creatinine of 1.1 and sodium levels of 137. In terms of his viral screen, the patient had a negative Covid 19 infection. Influenza screen was negative at the time of admission. On today's evaluation of 07/16/2022, the patient remains on high flow oxygen at 45 L with an FiO2 of 50%. The patient is feeling better and less short of breath compared to yesterday. No significant cough or sputum production. The patient was offered an incentive spirometer and the patient is able to generate adequate volumes on the incentive spirometer, nevertheless, the values remain less than 500 mL. The patient is on IV Rocephin. The patient was growing Haemophilus influenza in his sputum. At the same time, the patient remains on bronchodilators and he is on DuoNeb neb blotchiness 4 times a day, he is on a combination of Perforomist and Pulmicort neb less treatments twice a day and IV Solu-Medrol and the doses 40 mg IV every 6 hours. He was started on diuretics and to dose of Lasix will be given to him today. In terms of his blood work, his sodium level is at 137 with a potassium level of 4.4, BUN of 44 with a creatinine of 1.05 with RBC count of 12 a hemoglobin 14.8 and a platelet count of 148. LFTs are essentially within normal limits. On today's evaluation of 07/17/2022, the patient has no specific complaints. The patient is gradually improving. This morning, the patient was weaned down to 40 liters with an FiO2 of 35% high flow oxygen. The patient is otherwise doing well. He is using the incentive spirometer. He is still coughing and his cough is congested. Unable to bring up much sputum. He was diuresis yesterday and he has been negative fluid balance for now. BUN is a 53 with a creatinine of 1.29 his sodium levels is 135. The patient's WBC count is at 16.4 with a hemoglobin of 14.5. Remains on DuoNeb about treatments [id number]. Remains on IV Solu-Medrol. No altered mentation. No chest pain. Remains quite weak and his been having generalized global weakness. He is on Levemir 14 units daily twice a day and the patient is on NovoLog 40 units with meals and a sliding scale coverage. No altered mentation. No other new complaints. 07/18/2022, patient is doing well. The patient has been taken off the high flow oxygen the patient is currently on 4 L of O2 nasal cannula. No new complaints. IV Solu-Medrol was then tapered down to 20 mg every 8 hours. Limited cough. No significant congestion. So bronchospastic and wheezy. Air entry is quite limited in the lung bases bilaterally. He has advanced COPD.Transferred out of the intensive care unit yesterday. He is using the incentive spirometer. On his blood work, the patient has a white cell count of 8.9 with a hemoglobin of 12.4 count of 264. The patient has a BUN of 17 with a creatinine of 0.6 and his sodium level is 145. LFTs are normal. On 07/19/2022, I'm seeing the patient for a follow-up. The patient is currently on 4 L of oxygen by nasal cannula. No new complaints. He remains on IV Solu- Medrol 40 mg every 6 hours. He remains on DuoNeb about treatments on the clock. He is still very weak and he may need rehabilitation. He was transferred out of the intensive care unit few days back. echoes at 70 with a hemoglobin of 15.3 and a platelet count of 202. BUN is at 80 with a creatinine of 1.9 and there is a slight rise in the creatinine compared to yesterday's blood work. This is probably related to diuresis. 07/20/2022, the patient is still on 4 L of Oxymizer nasal cannula. Overall respiratory status is stable. Nevertheless, the patient was having some issues with obstructive uropathy. The production packager was consulted. The patient is having frequent bladder scans. Flomax was also added to the regimen at a dose of 0.4 mg on a daily basis. The patient's creatinine currently is at 1.9 and the BUN is 89 with a sodium level of 133. Diuretics were held. echoes at 60 with a hemoglobin 12.7. Potassium is at 4.8. LFTs are normal. The patient remains on DuoNeb about treatments [id number]. The patient remains on IV Solu-Medrol at a dose of 40 mg every 6 hours. No diuretics for now. 07/21/2022, the patient remains on 4 L of O2 nasal cannula. He was able to sit up on a recliner for next 10. Time yesterday. He stated a Rojas catheter in place. Creatinine is being monitored. he remains on DuoNeb neb on the clock is also on IV Solu-Medrol was tapered down to 40 mg every 6 hours. The patient started developing some colored mucus and for that reason, another sputum analysis will be done today. His tolerating diet. His oral intake is gradually improving. He is quite weak and debilitated. He may need an ECF placement at a later stage. No other new complaints for now. Family is at the bedside. I lengthy discussion with the patient's family The blood work from today shows a white cell count of 12.4 with a hemoglobin of 11.8. Sodium is at 131, BUN is 97 with a creatinine of 1.85 and the rest of the liver function tests are essentially within normal limits. The patient is seen today 07/22/2022 in follow-up on the regular medical floor. He is currently sitting up in a chair at the bedside. Awake and alert in no acu te distress. Maintaining O2 saturations in the 90s on 4 L/m per nasal cannula. Blood cultures revealed no growth. Sputum culture pending. White count 13.7. Hemoglobin 12.6. Sodium 132. Potassium 5.7. Bicarb 28. BUN 105. Creatinine 2.08. Glucose 139. He is continued on DuoNeb inhalations, Pulmicort and Perforomist inhalations, prednisone taper. Objective - Vital Signs Vital signs: Vital Signs Temp 97.5 F L 07/22/22 14:00 Pulse 71 07/22/22 15:24 Resp 18 07/22/22 14:00 BP 87/42 07/22/22 14:00 Pulse Ox 94 L 07/22/22 15:24 FiO2 35 07/17/22 11:06 Intake & Output 07/21/22 07/22/22 07/22/22 18:59 06:59 18:59 Intake Total 5 Output Total 125 1100 Balance -120 -1100 Weight 86 kg 86 kg Intake: IV 5 Invasive Line 9 5 Output: Urine 125 1100 Straight 125 1100 Other: Voiding Method Urinal Indwelling Catheter Indwelling Catheter # Voids 1 # Bowel Movements 1 1 - Exam Alert, up in a chair, 66-year-old male, No acute distress, much more calm today, currently on 4 L nasal cannula. HEENT examination is grossly unremarkable. Neck supple. Full range of motion. No adenopathy thyromegaly or neck vein distention. Cardiovascular examination reveals regular rhythm rate. S1-S2 normal. No S3 or S4. No discernible murmur noted. Heart sounds are distant. Lungs reveal bilateral coarse inspiratory expiratory rhonchi, and expiratory wheezes. No crackles. Abdomen soft, without bowel sounds. No masses or tenderness. Extremities are intact. No cyanosis clubbing or edema. Skin is without rash or lesion.Examination of the skin revealed no evidence of significant rashes, suspicious appearing nevi or other concerning lesions. Neurologic examination Neurologically, the patient is awake and alert and the patient does not have any focal neurological deficit. Cranial nerves are essentially intact. - Labs CBC & Chem 7: 07/22/22 08:58 07/22/22 10:33 Labs: Abnormal Lab Results - Last 24 Hours (Table) 07/21/22 07/21/22 07/22/22 Range/Units 16:54 19:15 01:56 WBC 10.9 H (3.8-10.6) k/uL RBC 3.66 L (4.30-5.90) m/uL Hgb 11.3 L (13.0-17.5) gm/dL Hct 33.2 L (39.0-53.0) % Sodium (137-145) mmol/L Potassium (3.5-5.1) mmol/L BUN (9-20) mg/dL Creatinine (0.66-1.25) mg/dL Glucose (74-99) mg/dL POC Glucose (mg/dL) 179 H 113 H (70-110) mg/dL Calcium (8.4-10.2) mg/dL ALT (4-49) U/L Total Protein (6.3-8.2) g/dL Albumin (3.5-5.0) g/dL 07/22/22 07/22/22 07/22/22 Range/Units 02:26 06:25 08:58 WBC 13.7 H (3.8-10.6) k/uL RBC 4.09 L (4.30-5.90) m/uL Hgb 12.6 L (13.0-17.5) gm/dL Hct 36.9 L (39.0-53.0) % Sodium (137-145) mmol/L Potassium (3.5-5.1) mmol/L BUN (9-20) mg/dL Creatinine (0.66-1.25) mg/dL Glucose (74-99) mg/dL POC Glucose (mg/dL) 127 H 114 H (70-110) mg/dL Calcium (8.4-10.2) mg/dL ALT (4-49) U/L Total Protein (6.3-8.2) g/dL Albumin (3.5-5.0) g/dL 07/22/22 07/22/22 Range/Units 10:33 11:27 WBC (3.8-10.6) k/uL RBC (4.30-5.90) m/uL Hgb (13.0-17.5) gm/dL Hct (39.0-53.0) % Sodium 132 L (137-145) mmol/L Potassium 5.7 H (3.5-5.1) mmol/L BUN 105 H* (9-20) mg/dL Creatinine 2.08 H (0.66-1.25) mg/dL Glucose 139 H (74-99) mg/dL POC Glucose (mg/dL) 131 H (70-110) mg/dL Calcium 6.7 L (8.4-10.2) mg/dL ALT 53 H (4-49) U/L Total Protein 4.6 L (6.3-8.2) g/dL Albumin 2.6 L (3.5-5.0) g/dL Microbiology - Last 24 Hours (Table) 07/21/22 10:10 Gram Stain - Preliminary Sputum Sputum Culture - Preliminary Assessment and Plan Assessment: Acute hypoxemic respiratory failure secondary to COPD exacerbation and the patient presented with acute hypoxic and hypercapnic respiratory failure. Most recent blood gases from 07/10/2022 showed improvement in the acid base status. He was on BiPAP and subsequently was switched to high flow oxygen. Oxygenation has improved. Chest x-ray showing atelectatic changes a lung base bilaterally. The patient remains on 4 liters nasal cannula. Severe COPD and the patient has an FEV1 of 39% of predicted at baseline and this is based on spirometry that was done on 09/28/2020. The patient has been maintained on Advair and DuoNeb about treatments [id number].. Delirium, recovered Acute kidney injury and the creatinine is up to 2.08 Acute tracheobronchitis. Supraventricular tachycardia/atrial fibrillation with RVR. Patient is currently on normal sinus rhythm. The patient is also on anticoagulation with Eliquis. The patient has a normal LV function Acute hypernatremia, recovered History of laryngeal carcinoma, in remission, status post radiation treatment, diagnosed in 2017. Acute hypercapnic respiratory failure secondary to severe COPD. GI bleed with positive stool for occult blood, current hemoglobin 12.6 Plan The patient was seen and evaluated Stable and on 4 L nasal cannula Titrate the FiO2 as tolerated Transitioned to a prednisone taper Discharge planning in place Will most likely need subacute rehabilitation I have personally seen and examined the patient, performed the documentation and the assessment and plan as written. Number of minutes spent on the visit: 10.
[2022-07-22 16:32] LABS: Glucose,Whole Blood 159 mg/dL (70-110)
[2022-07-22] MEDS: MIDODRINE 5 MG TAB PO SCH (18:22)
[2022-07-22 19:35] LABS: Glucose,Whole Blood 252 mg/dL (70-110)
[2022-07-22] MEDS: ATORVASTATIN 10 MG TAB PO SCH (20:35)
[2022-07-23 02:36] LABS: Glucose,Whole Blood 142 mg/dL (70-110)
[2022-07-23 06:14] LABS: Glucose,Whole Blood 71 mg/dL (70-110)
[2022-07-23] MEDS: IPRATROPIUM-ALBUTEROL 3 ML NEB INHALATION SCH ×4 (07:33→20:14)
[2022-07-23] MEDS: FORMOTEROL FUMARATE 20 MCG/2 ML NEBU INHALATION SCH ×2 (07:33→20:14)
[2022-07-23] MEDS: BUDESONIDE 1 MG/2 ML NEBU INHALATION SCH ×2 (07:33→20:14)
[2022-07-23] MEDS: INSULIN ASPART (NovoLOG) 100 UNIT/ML VIAL SQ SCH ×8 (07:56→21:37)
[2022-07-23 08:03] LABS: African American GFR (CKD) 42 (>60 ml/min/1.73 sqM); Anion Gap 5 mmol/L; Carbon Dioxide 24 mmol/L (22-30); Chloride 100 mmol/L (98-107); Glucose 57 mg/dL (74-99); Potassium 4.7 mmol/L (3.5-5.1); Sodium 129 mmol/L (137-145)
[2022-07-23 08:04] LABS: Calcium 6.6 mg/dL (8.4-10.2); Non-African American GFR(CKD) 37 (>60 ml/min/1.73 sqM)
[2022-07-23 08:09] LABS: Blood Urea Nitrogen 103 mg/dL (9-20)
[2022-07-23] MEDS: INSULIN DETEMIR (LEVEMIR) 100 UNIT/ML SYR SQ SCH ×2 (08:19→21:37)
[2022-07-23] MEDS: MIDODRINE 5 MG TAB PO SCH ×3 (08:20→18:11)
[2022-07-23] MEDS: predniSONE 20 MG TAB PO SCH (08:20)
[2022-07-23] MEDS: TAMSULOSIN 0.4 MG CAP.ER.24H PO SCH (08:20)
[2022-07-23] MEDS: AMIODARONE 200 MG TAB PO SCH ×2 (08:20→21:37)
[2022-07-23] MEDS: NYSTATIN 100,000 UNIT/ML SUSP 500,000 UNIT/5 ML CUP PO SCH ×4 (08:20→21:37)
[2022-07-23] MEDS: FAMOTIDINE 20 MG TAB PO SCH (08:21)
[2022-07-23] MEDS ORDERED: PEG 3350 (236 GM/BTL) + LYTES 4,000 ML BOTTLE PO ONE (09:00)
[2022-07-23 09:40] LABS: HCT 32.8 % (39.0-53.0); HGB 11.2 gm/dL (13.0-17.5); MCH 30.5 pg (25.0-35.0); MCV 89.6 fL (80.0-100.0); Mean Platelet Volume 9.3; Platelet Count 169 k/uL (150-450); RBC 3.66 m/uL (4.30-5.90); RDW 11.8 % (11.5-15.5); WBC 11.8 k/uL (3.8-10.6)
[2022-07-23] MEDS: bisacodyL 10 MG SUPP RECTAL SCH (09:59)
[2022-07-23 11:43] LABS: Glucose,Whole Blood 77 mg/dL (70-110)
--- NOTE | 2022-07-23 11:57 | P.PN ---
Subjective Patient is seen for follow-up for acute kidney injury and hypernatremia. Patient was noted to have significant urine retention and currently has an indwelling Rojas catheter. Systolic blood pressure remains on the lower side around 91-85 mmHg 1500 mL of urine noted on 24-hour output Currently not on any IV fluids or diuretics. Serum creatinine down to 1.8 today Objective - Vital Signs Vital signs: Vital Signs Temp 98.1 F 07/23/22 08:00 Pulse 70 07/23/22 11:38 Resp 16 07/23/22 08:00 BP 110/53 07/23/22 08:00 Pulse Ox 93 L 07/23/22 08:00 FiO2 35 07/17/22 11:06 Intake & Output 07/22/22 07/23/22 07/23/22 18:59 06:59 18:59 Output Total 1500 Balance -1500 Weight 86 kg 86 kg Output: Urine 1500 Straight 1100 Other: Voiding Method Indwelling Catheter Indwelling Catheter # Voids 700 # Bowel Movements 1 - Exam Awake, comfortable, no acute distress Examination of the heart S1 and S2 Examination lungs decreased breath sounds at the bases Abdomen is soft nontender Examination lower extremity shows edema 1+ bilaterally PARTS REMOVER exam grossly intact - Labs CBC & Chem 7: 07/23/22 07:15 07/23/22 07:07 Labs: Abnormal Lab Results - Last 24 Hours (Table) 07/22/22 07/22/22 07/23/22 Range/Units 16:31 19:34 02:34 WBC (3.8-10.6) k/uL RBC (4.30-5.90) m/uL Hgb (13.0-17.5) gm/dL Hct (39.0-53.0) % Sodium (137-145) mmol/L BUN (9-20) mg/dL Creatinine (0.66-1.25) mg/dL Glucose (74-99) mg/dL POC Glucose (mg/dL) 159 H 252 H 142 H (70-110) mg/dL Calcium (8.4-10.2) mg/dL 07/23/22 07/23/22 Range/Units 07:07 07:15 WBC 11.8 H (3.8-10.6) k/uL RBC 3.66 L (4.30-5.90) m/uL Hgb 11.2 L (13.0-17.5) gm/dL Hct 32.8 L (39.0-53.0) % Sodium 129 L (137-145) mmol/L BUN 103 H* (9-20) mg/dL Creatinine 1.86 H (0.66-1.25) mg/dL Glucose 57 L (74-99) mg/dL POC Glucose (mg/dL) (70-110) mg/dL Calcium 6.6 L (8.4-10.2) mg/dL Microbiology - Last 24 Hours (Table) 07/21/22 10:10 Gram Stain - Final Sputum Sputum Culture - Final Assessment and Plan Assessment: 1. Acute kidney injury secondary to combination of low blood pressure as well as possible prostatism with bladder scan showing 400 mL to 600 mL residual requiring straight cath. Blood pressure medications were reduced significantly, Blood pressure remains on the lower side. 2. Ileus. Resolved. 3. A. fib. Cardiology following. Rate controlled. 4. Diabetes mellitus. 5. Neurogenic bladder Rojas catheter inserted last night 07/20/2022, started on Flomax Plan: Continue midodrine repeat labs in a.m.
--- NOTE | 2022-07-23 13:36 | P.PN ---
Subjective Progress Note Date: 07/23/22 CHIEF COMPLAINT: Ileus in HISTORY OF PRESENT ILLNESS: Patient admitted to the hospital with shortness of breath evidence of COPD exacerbation, bronchitis and SVT. Surgical service initially consulted regarding an abdominal ileus. The ileus resolved. Surgical service has been re-consulted in regards to maroon-colored stools. Patient reports no further maroon stools. Denies any abdominal pain. Afebrile. WBC is 11.8 Hgb 12.6-11.2 platelets 169 sodium is 129 potassium 4.7 creatinine 1.86 Patient seen and examined with Dr. Gilliam PHYSICAL EXAM: VITAL SIGNS: Reviewed. GENERAL: Well-developed in no acute distress. ABDOMEN: Soft. distended. Nontender NEUROLOGIC: Awake and alert ASSESSMENT: 1. GI bleed with maroon stools 2. Ileus resolved 2. Acute COPD exacerbation with acute hypoxic respiratory failure 3. SVT and AFIB PLAN: -Patient scheduled for EGD and colonoscopy on , 07/25/[address] gilliam -Continue Clear liquid diet -Start GoLYTELY prep tomorrow -Continue to monitor for any signs or symptoms of bleeding -Continue to monitor hemoglobin Physician Instrumentation And Controls Technician note has been reviewed by physician. Signing provider agrees with the documented findings, assessment, and plan of care. Objective - Vital Signs Vital signs: Vital Signs Temp 98.1 F 07/23/22 08:00 Pulse 70 07/23/22 11:38 Resp 16 07/23/22 08:00 BP 110/53 07/23/22 08:00 Pulse Ox 93 L 07/23/22 08:00 FiO2 35 07/17/22 11:06 Intake & Output 07/22/22 07/23/22 07/23/22 18:59 06:59 18:59 Output Total 1500 Balance -1500 Weight 86 kg 86 kg Output: Urine 1500 Straight 1100 Other: Voiding Method Indwelling Catheter Indwelling Catheter Indwelling Catheter # Voids 700 # Bowel Movements 1 - Labs CBC & Chem 7: 07/23/22 07:15 07/23/22 07:07 Labs: Abnormal Lab Results - Last 24 Hours (Table) 07/22/22 07/22/22 07/23/22 Range/Units 16:31 19:34 02:34 WBC (3.8-10.6) k/uL RBC (4.30-5.90) m/uL Hgb (13.0-17.5) gm/dL Hct (39.0-53.0) % Sodium (137-145) mmol/L BUN (9-20) mg/dL Creatinine (0.66-1.25) mg/dL Glucose (74-99) mg/dL POC Glucose (mg/dL) 159 H 252 H 142 H (70-110) mg/dL Calcium (8.4-10.2) mg/dL 07/23/22 07/23/22 Range/Units 07:07 07:15 WBC 11.8 H (3.8-10.6) k/uL RBC 3.66 L (4.30-5.90) m/uL Hgb 11.2 L (13.0-17.5) gm/dL Hct 32.8 L (39.0-53.0) % Sodium 129 L (137-145) mmol/L BUN 103 H* (9-20) mg/dL Creatinine 1.86 H (0.66-1.25) mg/dL Glucose 57 L (74-99) mg/dL POC Glucose (mg/dL) (70-110) mg/dL Calcium 6.6 L (8.4-10.2) mg/dL Microbiology - Last 24 Hours (Table) 07/21/22 10:10 Gram Stain - Final Sputum Sputum Culture - Final
--- NOTE | 2022-07-23 14:18 | P.PN ---
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 The patient is currently being seen in the intensive care unit for alcohol withdrawal was and hypoxic respiratory failure. This morning, is awake and alert and there is no significant agitation. He remains on high flow oxygen at 45 L with an FiO2 of 56%. His current pulse ox is around 89%. Note that he had a CT angiogram at time of admission that showed no evidence of any pulmonary embolism. It showed emphysema and mild portal fibrosis. His resting comfortably in bed. He has no significant shortness of breath at rest. The same time, the patient has been in normal sinus rhythm. Noted at the time of admission, he was in atrial fibrillation and he was treated with a Cardizem drip and currently is off the drip. He is also off Precedex for now. Neurologically, he is alert and oriented 3. His most recent chest x-ray from yesterday showing some atelec tatic changes in the lung bases and emphysema. Otherwise no other major abnormalities are noted. In terms of treatment, the patient is currently on DuoNeb about treatments [id number], he is on Pulmicort Respules 1 mg twice a day, he is on IV Solu-Medrol 40 mg every 6 hours. Is also on performance 1 nevertheless treatment twice a day. He is covered with antibiotics and the patient is receiving Rocephin 2 g every 24 hours. His blood cultures from this admission is negative. The white cell count is at 12 with a hemoglobin of 14.7 and a platelet count of 188. BUN is 44 with a creatinine of 1.1 and sodium levels of 137. In terms of his viral screen, the patient had a negative Covid 19 infection. Influenza screen was negative at the time of admission. On today's evaluation of 07/16/2022, the patient remains on high flow oxygen at 45 L with an FiO2 of 50%. The patient is feeling better and less short of breath compared to yesterday. No significant cough or sputum production. The patient was offered an incentive spirometer and the patient is able to generate adequate volumes on the incentive spirometer, nevertheless, the values remain less than 500 mL. The patient is on IV Rocephin. The patient was growing Haemophilus influenza in his sputum. At the same time, the patient remains on bronchodilators and he is on DuoNeb neb blotchiness 4 times a day, he is on a combination of Perforomist and Pulmicort neb less treatments twice a day and IV Solu-Medrol and the doses 40 mg IV every 6 hours. He was started on diuretics and to dose of Lasix will be given to him today. In terms of his blood work, his sodium level is at 137 with a potassium level of 4.4, BUN of 44 with a creatinine of 1.05 with RBC count of 12 a hemoglobin 14.8 and a platelet count of 148. LFTs are essentially within normal limits. On today's evaluation of 07/17/2022, the patient has no specific complaints. The patient is gradually improving. This morning, the patient was weaned down to 40 liters with an FiO2 of 35% high flow oxygen. The patient is otherwise doing well. He is using the incentive spirometer. He is still coughing and his cough is congested. Unable to bring up much sputum. He was diuresis yesterday and he has been negative fluid balance for now. BUN is a 53 with a creatinine of 1.29 his sodium levels is 135. The patient's WBC count is at 16.4 with a hemoglobin of 14.5. Remains on DuoNeb about treatments [id number]. Remains on IV Solu-Medrol. No altered mentation. No chest pain. Remains quite weak and his been having generalized global weakness. He is on Levemir 14 units daily twice a day and the patient is on NovoLog 40 units with meals and a sliding scale coverage. No altered mentation. No other new complaints. 07/18/2022, patient is doing well. The patient has been taken off the high flow oxygen the patient is currently on 4 L of O2 nasal cannula. No new complaints. IV Solu-Medrol was then tapered down to 20 mg every 8 hours. Limited cough. No significant congestion. So bronchospastic and wheezy. Air entry is quite limited in the lung bases bilaterally. He has advanced COPD.Transferred out of the intensive care unit yesterday. He is using the incentive spirometer. On his blood work, the patient has a white cell count of 8.9 with a hemoglobin of 12.4 count of 264. The patient has a BUN of 17 with a creatinine of 0.6 and his sodium level is 145. LFTs are normal. On 07/19/2022, I'm seeing the patient for a follow-up. The patient is currently on 4 L of oxygen by nasal cannula. No new complaints. He remains on IV Solu- Medrol 40 mg every 6 hours. He remains on DuoNeb about treatments on the clock. He is still very weak and he may need rehabilitation. He was transferred out of the intensive care unit few days back. echoes at 70 with a hemoglobin of 15.3 and a platelet count of 202. BUN is at 80 with a creatinine of 1.9 and there is a slight rise in the creatinine compared to yesterday's blood work. This is probably related to diuresis. 07/20/2022, the patient is still on 4 L of Oxymizer nasal cannula. Overall respiratory status is stable. Nevertheless, the patient was having some issues with obstructive uropathy. The test facility engineer was consulted. The patient is having frequent bladder scans. Flomax was also added to the regimen at a dose of 0.4 mg on a daily basis. The patient's creatinine currently is at 1.9 and the BUN is 89 with a sodium level of 133. Diuretics were held. echoes at 60 with a hemoglobin 12.7. Potassium is at 4.8. LFTs are normal. The patient remains on DuoNeb about treatments [id number]. The patient remains on IV Solu-Medrol at a dose of 40 mg every 6 hours. No diuretics for now. 07/21/2022, the patient remains on 4 L of O2 nasal cannula. He was able to sit up on a recliner for next 10. Time yesterday. He stated a Rojas catheter in place. Creatinine is being monitored. he remains on DuoNeb neb on the clock is also on IV Solu-Medrol was tapered down to 40 mg every 6 hours. The patient started developing some colored mucus and for that reason, another sputum analysis will be done today. His tolerating diet. His oral intake is gradually improving. He is quite weak and debilitated. He may need an ECF placement at a later stage. No other new complaints for now. Family is at the bedside. I lengthy discussion with the patient's family The blood work from today shows a white cell count of 12.4 with a hemoglobin of 11.8. Sodium is at 131, BUN is 97 with a creatinine of 1.85 and the rest of the liver function tests are essentially within normal limits. The patient is seen today 07/22/2022 in follow-up on the regular medical floor. He is currently sitting up in a chair at the bedside. Awake and alert in no acu te distress. Maintaining O2 saturations in the 90s on 4 L/m per nasal cannula. Blood cultures revealed no growth. Sputum culture pending. White count 13.7. Hemoglobin 12.6. Sodium 132. Potassium 5.7. Bicarb 28. BUN 105. Creatinine 2.08. Glucose 139. He is continued on DuoNeb inhalations, Pulmicort and Perforomist inhalations, prednisone taper. The patient is seen today 07/23/2022 in follow-up on the regular medical floor. He is awake and alert in no acute distress. Sitting up in a chair at the bedside. Maintaining O2 saturations in the 90s on 4 L/m per nasal cannula. Blood and sputum cultures revealed no growth. White count 11.8. Hemoglobin 11.2. Sodium 129. Potassium 4.7. BUN 103. Creatinine 1.86. Glucose 77. Remains on DuoNeb inhalations, Pulmicort and Perforomist inhalations, prednisone taper. The patient's stool was positive for occult blood. The plan is for EGD/colonoscopy on 07/25/2022. Currently on a clear liquid diet. Objective - Vital Signs Vital signs: Vital Signs Temp 98.1 F 07/23/22 08:00 Pulse 70 07/23/22 11:38 Resp 16 07/23/22 08:00 BP 110/53 07/23/22 08:00 Pulse Ox 93 L 07/23/22 08:00 FiO2 35 07/17/22 11:06 Intake & Output 07/22/22 07/23/22 07/23/22 18:59 06:59 18:59 Output Total 1500 Balance -1500 Weight 86 kg 86 kg Output: Urine 1500 Straight 1100 Other: Voiding Method Indwelling Catheter Indwelling Catheter Indwelling Catheter # Voids 700 # Bowel Movements 1 - Exam Alert, up in a chair, 66-year-old male, no acute distress, currently on 4 L na jorge cannula. HEENT examination is grossly unremarkable. Neck supple. Full range of motion. No adenopathy thyromegaly or neck vein distention. Cardiovascular examination reveals regular rhythm rate. S1-S2 normal. No S3 or S4. No discernible murmur noted. Heart sounds are distant. Lungs reveal bilateral coarse inspiratory expiratory rhonchi, and expiratory wheezes. No crackles. Abdomen soft, without bowel sounds. No masses or tenderness. Extremities are intact. No cyanosis clubbing or edema. Skin is without rash or lesion.Examination of the skin revealed no evidence of significant rashes, suspicious appearing nevi or other concerning lesions. Neurologic examination Neurologically, the patient is awake and alert and the patient does not have any focal neurological deficit. Cranial nerves are essentially intact. - Labs CBC & Chem 7: 07/23/22 07:15 07/23/22 07:07 Labs: Abnormal Lab Results - Last 24 Hours (Table) 07/22/22 07/22/22 07/23/22 Range/Units 16:31 19:34 02:34 WBC (3.8-10.6) k/uL RBC (4.30-5.90) m/uL Hgb (13.0-17.5) gm/dL Hct (39.0-53.0) % Sodium (137-145) mmol/L BUN (9-20) mg/dL Creatinine (0.66-1.25) mg/dL Glucose (74-99) mg/dL POC Glucose (mg/dL) 159 H 252 H 142 H (70-110) mg/dL Calcium (8.4-10.2) mg/dL 07/23/22 07/23/22 Range/Units 07:07 07:15 WBC 11.8 H (3.8-10.6) k/uL RBC 3.66 L (4.30-5.90) m/uL Hgb 11.2 L (13.0-17.5) gm/dL Hct 32.8 L (39.0-53.0) % Sodium 129 L (137-145) mmol/L BUN 103 H* (9-20) mg/dL Creatinine 1.86 H (0.66-1.25) mg/dL Glucose 57 L (74-99) mg/dL POC Glucose (mg/dL) (70-110) mg/dL Calcium 6.6 L (8.4-10.2) mg/dL Microbiology - Last 24 Hours (Table) 07/21/22 10:10 Gram Stain - Final Sputum Sputum Culture - Final Assessment and Plan Assessment: Acute hypoxemic respiratory failure secondary to COPD exacerbation and the patient presented with acute hypoxic and hypercapnic respiratory failure. Oxygenation has improved. Chest x-ray showing atelectatic changes a lung base bilaterally. The patient remains on 4 liters nasal cannula. Severe COPD and the patient has an FEV1 of 39% of predicted at baseline and this is based on spirometry that was done on 09/28/2020. The patient has been maintained on Advair and DuoNeb about treatments [id number].. Delirium, recovered Acute kidney injury and the creatinine is currently 1.86. GFR of 37 Acute tracheobronchitis. Supraventricular tachycardia/atrial fibrillation with RVR. Patient is currently on normal sinus rhythm. The patient is also on anticoagulation with Eliquis. The patient has a normal LV function Acute hypernatremia, recovered History of laryngeal carcinoma, in remission, status post radiation treatment, diagnosed in 2017. Acute hypercapnic respiratory failure secondary to severe COPD. GI bleed with positive stool for occult blood, current hemoglobin 11.2. Plans for EGD/colonoscopy on 07/25/2022 Plan The patient was seen and evaluated Medications and labs reviewed Stable and on 4 L nasal cannula Titrate the FiO2 as tolerated Continue a prednisone taper Plan is for EGD/colonoscopy on 07/25/2022 I have personally seen and examined the patient, performed the documentation and the assessment and plan as written. Number of minutes spent on the visit: 10.
--- NOTE | 2022-07-23 14:38 | P.PN ---
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 Patient tried breathing treatments at home without much relief. Patient was tachycardic on admission with heart rate in 160s and was found to be SVT patient was given Ellenson in the ER. Otherwise denied any complaints of chest pain. No nausea vomiting or abdominal pain. Denied any increased leg swelling. No fever no chills. No prior history of SVT. Chest x-ray showed COPD. No active cardiopulmonary disease. Mild pulmonary fibrotic changes. No significant change. CTA chest showed no evidence of PE. Emphysema and mild pulmonary fibrosis. No suspicious pulmonary mass. Laboratory data showed WBC 16.0 hemoglobin 16.0 and platelets 269 Sodium 139 potassium four-point 102 bicarb is 20 BUN 16 and creatinine 0.87 and lactic acid 2.7 Troponin x1 negative and proBNP is 378 TSH 0.49 6 Coronavirus and influenza AMB not detected. Urinalysis is negative for infection. 07/08/2022 Patient continues to be monitored in intensive care unit mostly on BiPAP support but able to be weaned to 3 to 4 L of oxygen via nasal cannula. He is unsure when he has had bowel movement and has limited to no bowel sounds for this reason abdominal xray has been performed showing mildly distended small bowel loops and some segments of colon as well. Consider generalized ileus and difficult to exclude the possibility of a distal colonic obstruction. White blood cell count today 6.1, sodium 144, potassium 4.6, BUN 40, creatinine 0.99, blood glucose 150, magnesium 2.4. Procalcitonin 0.55. Vitals today, patient is afebrile, heart rate 71, blood pressure 121/64, 95% oxygen saturation. Patient has been maintained on dexmedetomidine for acute anxiety which is currently paused. Continues on IV Solu-Medrol, and bronchodilators. Patient is currently on IV cardizem gtt for tachycardia and will be transitioned to oral verapamil today, cardiology is following. 07/09/2022 Patient continues to be monitored in intensive care unit. White count elevated up to 12.4 today he has expiratory wheezing on exam changed from yesterday. Patient requiring bipap at 35% FiO2 currently. He did have low grade fever this morning 99 and is receiving acetaminophen as needed. chest xray today showing chronic emphysema and pulmonary fibrotic change. Procalcitonin level elevated at 0.55. IV ceftriaxone increased to 2 gram every 24 hours. Patient is continued on bronchodilators. Continues on IV solumedrol 60 mg q6h. Dexmedetomidine possibly being weaned off today, seroquel and haldol ordered with ativan as needed. Patient continues with significant abdominal distention and absent bowel sounds left lower quadrant. Did not receive lactulose yesterday. General surgery was consulted for further evaluation, currently placed NPO for possible ileus /bowel obstruction. He is hypertensive today with systolic in the 180s has been started on verapamil TID and also hydralazine 50 BID. Cardiology following. 07/10/2022 Patient evaluated today on BiPAP, fio2 has been increased to 40%, he is using accessory muscles to breath and appears quite aggitated. He is on combination of haldol, seroquel for this. Additionally, he was started on nicotine patch and clonidine patch. NG tube has been placed, patient has not had a BM. Abdominal Pelvis CT completed showing no CT evidence for small bowel obstruction. Patient also had follow up chest xray today showing COPD changes and no acute disease. Never the less he appears to have some respiratory distress requiring BiPAP. white count 11.7 today, sodium 149, BUN 47, creatinine 1.05, blood glucose 170s. Patient has been placed on amiodarone infusion and also heparin gtt as patient is unable to take oral medications currently. He continues on antibiotics. Continues on IV solumedrol. 07/11/2022 Patient is monitored in intensive care unit. Continues with NG tube. Tube feedings have been resumed with vital AF 1.2 with goal of 55 mls per hour. Currrently running at 20 mLs/hour. Patient has free water flush 30 mL every 4 hours, would like to increase free water and discontinue IV fluids. Sodium level today 148, potassium 4.1, chloride 110, BUN 51, creatinine 1.08. Blood glucose in the 240s and insulin has been increased. Patient is receiving lactulose, had fleet enema today. Has not had a BM this admission, bowel sounds in all 4 quadrants today. Amiodarone has been discontinued. Continues on oral verapamil. Heart rate is improving. Patient trialed on airvo 60/60 today. Chest xray showing no focal consolidation. 07/12/2022 Patient is evaluated in ICU, family at bedside. Continues on Airvo 60/60, reports non productive cough. Diffuse weakness. Abdomen distended seems worse than yesterday. Discussed with surgery. Tube feedings have been placed on hold a nd patient started on daily suppositories. Otherwise continues on empiric ceftriaxone. Chest xray showing COPD with possible underlying pulmonary vascular congestion. Sodium up to 150 today, nephrology consulted. Patient has been started on D5% water at 75 mls per hour. BUN 55 creatinine 1.22 today. Blood glucose 230s. Heart rate 120s today, blood pressure 130/91, remains afebrile. 07/13/2022 Patient continue in Intensive Care unit. Continues on Airvo 60/60. He reports breathing improved today less short of breath. Lung sounds have improved and increased aeration. Less congested. No BM yet, has been started on dulcolax suppository daily. Increased bowel sounds today and abdomen is less distended. Remains on IV ceftriaxone. White count normalized to 9.9. Sodium remains at 150, BUN 51, creatinine 1.21. Blood glucose 200s. hgb A1c found to be 6.5 consistent with diagnosis of diabetes mellitus type 2. Continues on levemir with sliding scale and scheduled novolog coverage. Remains afebrile, heart rate 87, blood pressure 177/91, oxygen saturation 95%. IV steroids have been decreased today. Continues on oral cardizem, oral verapamil. Continues on D5 water at 75 mls per hour. 07/14/2022 Patient continues to be monitored closely in intensive care unit. He continues on Airvo 45/60, has tolerated weaning and continues to report improvement in work of breathing. No wheezing noted on exam today has some coarse scattered ronchi. NG tube remains in place, he did have BM. Will discuss with surgery if NG tube can be discontinued. Will add nystatin swish today which can be applied manually versus swishing. Patient remains diffusely weak has been on bedrest. No breakdown noted on skin. Continues on oral amiodarone, verapamil, anticoagulated with eliquis. Patient has been maintained on empiric antibiotic coverage with IV ceftriaxone, tomorrow will be day 5. white count has normalized consider discontinuing antibiotics tomorrow. Patient is maintaining sinus rhythm today heart rate 80s, blood pressure 159/78, 93% oxygen saturation, has remained afebrile. Labs today are improving, white count remains within normal limits at 10.4, sodium 142, potassium 4.5, chloride normalized to 104, BUN 48, creatinine 1.08. Blood glucose 160s to 200s. IV fluids have been changed to D5 1/2 NS at 50. Repeat labs tomorrow. Multiple consultations following. PT/OT has been consulted. 07/15/22. Patient seen and examined. Daughter at the bedside. Patient continues to be on heated high flow oxygen. States he feels better. Denies any nausea, vomiting. Case discussed with nursing staff 07/16/22. Patient seen and examined. Stated that he had a panic attack this morning, currently doing much better. Breathing is improving. Denies any chest pain. Continues to be on heated high flow 07/17/22. Patient seen and examined. Continues to be on heated high flow. Does not look any acute distress. 07/18/22. Patient seen and examined. Patient is transferred out of ICU. Currently on 4 L of oxygen. Gets short of breath on exertion. Otherwise patient is doing better compared to yesterday 07/19. Patient seen and examined. Continues to be on 4 L of oxygen. Creatinine has bumped up to 1.9. Gets short of breath on exertion. Patient is very weak 07/20. Patient seen and examined. Still gets short of breath on minimal exertion. Denies any chest pain. Not very keen to get out of the bed. Explained to him that he needs to get out of the bed 07/21. Patient seen and examined. Currently sitting in the chair. States he feels better compared to yesterday. Still complaining of productive cough 07/22/2022 Patient monitored sitting up in chair today. He continues on 4L nasal cannula. Hypotensive today blood pressures in the 80s systolic. 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 Verapamil has been placed on hold. Creatinine increased up to 2.08 today, most likely from acute hypotensive episode. He continues in sinus rhythm heart rate in the 70s. Potassium 5.7, sodium 132. Sputum culture pending. 07/23/2022 Patient sitting up in chair today. No acute events overnight. He does report some dizziness. Blood pressure on the lower side throughout the evening and he received a 500 mL fluid bolus. Started on midodrine yesterday as well. Blood pressure improved to 110s/50s. Continues on 4L nasal cannula. Surgery has been following for reports of maroon colored stools which patient reports have resolved, and he is scheduled to undergo EGD colonoscopy . Hgb 11.2. Creatinine improved to 1.8 today. He continues with indwelling catheter. Review of Systems Constitutional: Reports fatigue denied any fever. Cardio vascular: denied any chest pain, palpitations Gastrointestinal: denied any nausea, vomiting, diarrhea, maroon stools resolved. Pulmonary: Denied any shortness of breath cough Neurologic denied any new focal deficits All inpatient medications were reviewed and appropriate changes in these medications as dictated in the interval history and assessment and plan. PHYSICAL EXAMINATION: GENERAL: The patient is alert and oriented x3, not in any acute distress. Well developed, well nourished. Fatigued, pale. HEENT: Pupils are round and equally reacting to light. EOMI. No scleral icterus. No conjunctival pallor. Normocephalic, atraumatic. No pharyngeal erythema. No thyromegaly. CARDIOVASCULAR: S1 and S2 present. No murmurs, rubs, or gallops. PULMONARY: Diminished breath sounds at the bases bilaterally. No crackles audible ABDOMEN: Soft, nontender, distended, normoactive bowel sounds. No palpable organomegaly. Round, obese. MUSCULOSKELETAL: No joint swelling or deformity. EXTREMITIES: No cyanosis, clubbing, or pedal edema. NEUROLOGICAL: Gross neurological examination did not reveal any focal deficits. Diffuse generalized weakness. SKIN: No rashes. Assessment and plan Worsening shortness of breath secondary to acute COPD exacerbation and tracheobronchitis, improving Acute hypoxemic respiratory failure secondary to above, has been weaned off BiPA P/Airvo support and currently on 4L nasal cannula SVT/Atrial fibrillation with rapid rate converted to normal sinus rhythm Hypertension currently hypotensive, improving on midodrine. Rule out GI bleed with reports of maroon colored stool. - pending endoscopy. Hypernatremia, resolved currently hyponatremic Metabolic acidosis resolved Acute kidney injury, initially resolved, creatinine elevated from hypotension and component of urinary retention slightly improved 1.86 Urinary retention with indwelling greenfield catheter Diabetes Mellitus type 2 A1C 6.5. Ileus, resolved BPH Prior history of smoking History of throat cancer and vocal cord status post radiation 2016 GI prophylaxis DVT prophylaxis Full Code Plan: Continue oxygen supplementation, aggressive pulmonary hygiene Short term amiodarone therapy for one month and then discontinue per cardiology Patient started on midodrine, verapamil on hold. Continue Flomax, indwelling catheter EGD/Colonoscopy scheduled on 07/25/22 Repeat BMP in AM The impression and plan of care has been dictated by Maria De Jesus Mccoy, Nurse Practitioner as directed. Dr. Alison MD I have performed a history and physical examination and medical decision making of this patient, discussed the same with the dictator, and agree with the di ctators assessment and plan as written, documented as a scribe. Based on total visit time, I have performed more than 50% of this visit. Objective - Vital Signs Vital signs: Vital Signs Temp 98.1 F 07/23/22 08:00 Pulse 70 07/23/22 11:38 Resp 16 07/23/22 08:00 BP 110/53 07/23/22 08:00 Pulse Ox 93 L 07/23/22 08:00 FiO2 35 07/17/22 11:06 Intake & Output 07/22/22 07/23/22 07/23/22 18:59 06:59 18:59 Output Total 1500 Balance -1500 Weight 86 kg 86 kg Output: Urine 1500 Straight 1100 Other: Voiding Method Indwelling Catheter Indwelling Catheter Indwelling Catheter # Voids 700 # Bowel Movements 1 - Labs CBC & Chem 7: 07/23/22 07:15 07/23/22 07:07 Labs: Abnormal Lab Results - Last 24 Hours (Table) 07/22/22 07/22/22 07/23/22 Range/Units 16:31 19:34 02:34 WBC (3.8-10.6) k/uL RBC (4.30-5.90) m/uL Hgb (13.0-17.5) gm/dL Hct (39.0-53.0) % Sodium (137-145) mmol/L BUN (9-20) mg/dL Creatinine (0.66-1.25) mg/dL Glucose (74-99) mg/dL POC Glucose (mg/dL) 159 H 252 H 142 H (70-110) mg/dL Calcium (8.4-10.2) mg/dL 07/23/22 07/23/22 Range/Units 07:07 07:15 WBC 11.8 H (3.8-10.6) k/uL RBC 3.66 L (4.30-5.90) m/uL Hgb 11.2 L (13.0-17.5) gm/dL Hct 32.8 L (39.0-53.0) % Sodium 129 L (137-145) mmol/L BUN 103 H* (9-20) mg/dL Creatinine 1.86 H (0.66-1.25) mg/dL Glucose 57 L (74-99) mg/dL POC Glucose (mg/dL) (70-110) mg/dL Calcium 6.6 L (8.4-10.2) mg/dL Microbiology - Last 24 Hours (Table) 07/21/22 10:10 Gram Stain - Final Sputum Sputum Culture - Final Assessment and Plan Time with Patient: Less than 30
[2022-07-23 16:27] LABS: Glucose,Whole Blood 107 mg/dL (70-110)
[2022-07-23 19:24] LABS: Glucose,Whole Blood 136 mg/dL (70-110)
[2022-07-23] MEDS: ATORVASTATIN 10 MG TAB PO SCH (21:37)
[2022-07-24 01:52] LABS: Glucose,Whole Blood 62 mg/dL (70-110)
[2022-07-24 02:08] LABS: Glucose,Whole Blood 59 mg/dL (70-110)
[2022-07-24 02:22] LABS: Glucose,Whole Blood 76 mg/dL (70-110)
[2022-07-24 05:56] LABS: Glucose,Whole Blood 114 mg/dL (70-110)
[2022-07-24] MEDS: MIDODRINE 5 MG TAB PO SCH ×3 (06:23→18:17)
[2022-07-24] MEDS: INSULIN ASPART (NovoLOG) 100 UNIT/ML VIAL SQ SCH ×8 (07:05→22:09)
[2022-07-24] MEDS: INSULIN DETEMIR (LEVEMIR) 100 UNIT/ML SYR SQ SCH ×2 (07:05→22:09)
[2022-07-24] MEDS: FORMOTEROL FUMARATE 20 MCG/2 ML NEBU INHALATION SCH (08:08)
[2022-07-24] MEDS: BUDESONIDE 1 MG/2 ML NEBU INHALATION SCH (08:08)
[2022-07-24] MEDS: IPRATROPIUM-ALBUTEROL 3 ML NEB INHALATION SCH ×4 (08:08→20:17)
[2022-07-24] MEDS: bisacodyL 10 MG SUPP RECTAL SCH (08:59)
[2022-07-24] MEDS: AMIODARONE 200 MG TAB PO SCH ×2 (09:02→22:09)
[2022-07-24] MEDS: FAMOTIDINE 20 MG TAB PO SCH (09:02)
[2022-07-24] MEDS: predniSONE 20 MG TAB PO SCH (09:02)
[2022-07-24] MEDS: NYSTATIN 100,000 UNIT/ML SUSP 500,000 UNIT/5 ML CUP PO SCH ×4 (09:02→22:09)
[2022-07-24] MEDS: TAMSULOSIN 0.4 MG CAP.ER.24H PO SCH (09:02)
[2022-07-24 10:44] LABS: African American GFR (CKD) 50.6 (60.0-200.0); Anion Gap 8.8 mmol/L (10.00-18.00); BUN/Creat Ratio 48.13 Ratio (12.00-20.00); Calcium 6.6 mg/dL (8.7-10.3); Carbon Dioxide 26.2 mmol/L (20.0-27.5); Non-African American GFR(CKD) 43.6 (60.0-200.0); Potassium 4.8 mmol/L (3.5-5.5)
[2022-07-24 10:45] LABS: Glucose,Whole Blood 69 mg/dL (70-110)
[2022-07-24 11:15] LABS: Basophils # (A) 0.01 X 10*3/uL (0.00-0.10); Basophils % (A) 0.1 %; Eosinophils # (A) 0.03 X 10*3/uL (0.04-0.35); Eosinophils % (A) 0.3 %; HCT 32.3 % (39.6-50.0); HGB 10.6 g/dL (13.0-17.0); Immature Grans, Automated 0.6 %; Lymphocytes # (A) 0.43 X 10*3/uL (0.90-5.00); Lymphocytes % (A) 4.8 %; MCH 29.2 pg (27.0-32.0); MCHC 32.8 g/dL (32.0-37.0); Mean Platelet Volume 9.7 fL (9.5-12.2); Monocytes # (A) 0.21 X 10*3/uL (0.20-1.00); Monocytes % (A) 2.3 %; NRBC Per 100 WBC 0 /100 WBCS (0.0-0.0); Neutrophils # (A) 8.22 X 10*3/uL (1.80-7.70); Neutrophils % (A) 91.9 %; Platelet Count 157 X 10*3/uL (140-440); RBC 3.63 X 10*6/uL (4.40-5.60); RDW 12.3 % (11.5-14.5); WBC 8.95 X 10*3/uL (4.50-10.00)
[2022-07-24 11:20] LABS: Glucose,Whole Blood 68 mg/dL (70-110)
[2022-07-24 11:42] LABS: Glucose,Whole Blood 75 mg/dL (70-110)
--- NOTE | 2022-07-24 12:36 | P.PN ---
Subjective Patient is seen for follow-up for acute kidney injury and hypernatremia. Patient was noted to have significant urine retention and currently has an indwelling Rojas catheter. Systolic blood pressure remains on the lower side around 91-85 mmHg 1500 mL of urine noted on 24-hour output Currently not on any IV fluids or diuretics. Serum creatinine 1.6 today. Complaining of mild shortness of breath Objective - Vital Signs Vital signs: Vital Signs Temp 97.3 F L 07/24/22 08:00 Pulse 66 07/24/22 11:57 Resp 18 07/24/22 08:00 BP 108/69 07/24/22 12:10 Pulse Ox 95 07/24/22 10:00 FiO2 35 07/17/22 11:06 Intake & Output 07/23/22 07/24/22 07/24/22 18:59 06:59 18:59 Output Total 400 800 Balance -400 -800 Weight 86 kg Output: Urine 400 800 Other: Voiding Method Indwelling Catheter Indwelling Catheter - Exam Awake, comfortable, no acute distress Examination of the heart S1 and S2 Examination lungs decreased breath sounds at the bases Abdomen is soft nontender Examination lower extremity shows edema 2+ bilaterally 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 - Labs CBC & Chem 7: 07/24/22 06:39 07/24/22 06:39 Labs: Abnormal Lab Results - Last 24 Hours (Table) 07/23/22 07/24/22 07/24/22 Range/Units 19:23 01:48 02:04 RBC (4.40-5.60) X 10*6/uL Hgb (13.0-17.0) g/dL Hct (39.6-50.0) % Immature Gran # (0.00-0.04) X 10*3/uL Neutrophils # (1.80-7.70) X 10*3/uL Lymphocytes # (0.90-5.00) X 10*3/uL Eosinophils # (0.04-0.35) X 10*3/uL Sodium (135-145) mmol/L Chloride (96-109) mmol/L Anion Gap (10.00-18.00) mmol/L BUN (9.0-27.0) mg/dL Creatinine (0.6-1.5) mg/dL Est GFR (CKD-EPI)AfAm (60.0-200.0) Est GFR (CKD-EPI)NonAf (60.0-200.0) BUN/Creatinine Ratio (12.00-20.00) Ratio POC Glucose (mg/dL) 136 H 62 L 59 L (70-110) mg/dL Calcium (8.7-10.3) mg/dL 07/24/22 07/24/22 07/24/22 Range/Units 05:55 06:39 06:39 RBC 3.63 L (4.40-5.60) X 10*6/uL Hgb 10.6 L (13.0-17.0) g/dL Hct 32.3 L (39.6-50.0) % Immature Gran # 0.05 H (0.00-0.04) X 10*3/uL Neutrophils # 8.22 H (1.80-7.70) X 10*3/uL Lymphocytes # 0.43 L (0.90-5.00) X 10*3/uL Eosinophils # 0.03 L (0.04-0.35) X 10*3/uL Sodium 130 L (135-145) mmol/L Chloride 95 L (96-109) mmol/L Anion Gap 8.80 L (10.00-18.00) mmol/L BUN 77.0 H (9.0-27.0) mg/dL Creatinine 1.6 H (0.6-1.5) mg/dL Est GFR (CKD-EPI)AfAm 50.6 L (60.0-200.0) Est GFR (CKD-EPI)NonAf 43.6 L (60.0-200.0) BUN/Creatinine Ratio 48.13 H (12.00-20.00) Ratio POC Glucose (mg/dL) 114 H (70-110) mg/dL Calcium 6.6 L (8.7-10.3) mg/dL 07/24/22 07/24/22 Range/Units 10:44 11:18 RBC (4.40-5.60) X 10*6/uL Hgb (13.0-17.0) g/dL Hct (39.6-50.0) % Immature Gran # (0.00-0.04) X 10*3/uL Neutrophils # (1.80-7.70) X 10*3/uL Lymphocytes # (0.90-5.00) X 10*3/uL Eosinophils # (0.04-0.35) X 10*3/uL Sodium (135-145) mmol/L Chloride (96-109) mmol/L Anion Gap (10.00-18.00) mmol/L BUN (9.0-27.0) mg/dL Creatinine (0.6-1.5) mg/dL Est GFR (CKD-EPI)AfAm (60.0-200.0) Est GFR (CKD-EPI)NonAf (60.0-200.0) BUN/Creatinine Ratio (12.00-20.00) Ratio POC Glucose (mg/dL) 69 L 68 L (70-110) mg/dL Calcium (8.7-10.3) mg/dL Microbiology - Last 24 Hours (Table) 07/21/22 10:10 Gram Stain - Final Sputum Sputum Culture - Final Assessment and Plan Assessment: 1. Acute kidney injury secondary to combination of low blood pressure as well as possible prostatism with bladder scan showing 400 mL to 600 mL residual requiring straight cath. Blood pressure medications were reduced significantly, Blood pressure remains on the lower side. 2. Ileus. Resolved. 3. A. fib. Cardiology following. Rate controlled. 4. Diabetes mellitus. 5. Neurogenic bladder Rojas catheter inserted last night 07/20/2022, started on Flomax 6. Volume overload Plan: Continue midodrine IV Lasix 1 Start oral Lasix from tomorrow repeat labs in a.m.
[2022-07-24] MEDS ORDERED: FUROSEMIDE 10 MG/ML 4 ML VIAL IV STA (12:37)
--- NOTE | 2022-07-24 13:55 | P.PN ---
Subjective Progress Note Date: 07/24/22 CHIEF COMPLAINT: Ileus in HISTORY OF PRESENT ILLNESS: Patient admitted to the hospital with shortness of breath evidence of COPD exacerbation, bronchitis and SVT. Surgical service initially consulted regarding an abdominal ileus. The ileus resolved. Surgical service has been re-consulted in regards to maroon-colored stools. Patient may have had a bloody bowel movement yesterday. He denies any abdominal pain. He has started his GoLYTELY prep. Afebrile. WBC 8.9 hemoglobin down from 11.2- 10.6 platelets 157 sodium 1:30 potassium is 4.8 creatinine is 1.6 Patient seen and examined with Dr. Gilliam PHYSICAL EXAM: VITAL SIGNS: Reviewed. GENERAL: Well-developed in no acute distress. ABDOMEN: Soft. distended. Nontender NEUROLOGIC: Awake and alert ASSESSMENT: 1. GI bleed with maroon stools 2. Ileus resolved 2. Acute COPD exacerbation with acute hypoxic respiratory failure 3. SVT and AFIB PLAN: -Patient scheduled for EGD and colonoscopy on , 07/25/[address] gilliam -Continue Clear liquid diet -GoLYTELY bowel prep today -Nothing by mouth after midnight -Continue to monitor for any signs or symptoms of bleeding -Continue to monitor hemoglobin Physician [employer] Education Teacher note has been reviewed by physician. Signing provider agrees with the documented findings, assessment, and plan of care. Objective - Vital Signs Vital signs: Vital Signs Temp 97.3 F L 07/24/22 08:00 Pulse 66 07/24/22 11:57 Resp 18 07/24/22 08:00 BP 108/69 07/24/22 12:10 Pulse Ox 95 07/24/22 10:00 FiO2 35 07/17/22 11:06 Intake & Output 07/23/22 07/24/22 07/24/22 18:59 06:59 18:59 Output Total 400 800 Balance -400 -800 Weight 86 kg Output: Urine 400 800 Other: Voiding Method Indwelling Catheter Indwelling Catheter - Labs CBC & Chem 7: 07/24/22 06:39 07/24/22 06:39 Labs: Abnormal Lab Results - Last 24 Hours (Table) 07/23/22 07/24/22 07/24/22 Range/Units 19:23 01:48 02:04 RBC (4.40-5.60) X 10*6/uL Hgb (13.0-17.0) g/dL Hct (39.6-50.0) % Immature Gran # (0.00-0.04) X 10*3/uL Neutrophils # (1.80-7.70) X 10*3/uL Lymphocytes # (0.90-5.00) X 10*3/uL Eosinophils # (0.04-0.35) X 10*3/uL Sodium (135-145) mmol/L Chloride (96-109) mmol/L Anion Gap (10.00-18.00) mmol/L BUN (9.0-27.0) mg/dL Creatinine (0.6-1.5) mg/dL Est GFR (CKD-EPI)AfAm (60.0-200.0) Est GFR (CKD-EPI)NonAf (60.0-200.0) BUN/Creatinine Ratio (12.00-20.00) Ratio POC Glucose (mg/dL) 136 H 62 L 59 L (70-110) mg/dL Calcium (8.7-10.3) mg/dL 07/24/22 07/24/22 07/24/22 Range/Units 05:55 06:39 06:39 RBC 3.63 L (4.40-5.60) X 10*6/uL Hgb 10.6 L (13.0-17.0) g/dL Hct 32.3 L (39.6-50.0) % Immature Gran # 0.05 H (0.00-0.04) X 10*3/uL Neutrophils # 8.22 H (1.80-7.70) X 10*3/uL Lymphocytes # 0.43 L (0.90-5.00) X 10*3/uL Eosinophils # 0.03 L (0.04-0.35) X 10*3/uL Sodium 130 L (135-145) mmol/L Chloride 95 L (96-109) mmol/L Anion Gap 8.80 L (10.00-18.00) mmol/L BUN 77.0 H (9.0-27.0) mg/dL Creatinine 1.6 H (0.6-1.5) mg/dL Est GFR (CKD-EPI)AfAm 50.6 L (60.0-200.0) Est GFR (CKD-EPI)NonAf 43.6 L (60.0-200.0) BUN/Creatinine Ratio 48.13 H (12.00-20.00) Ratio POC Glucose (mg/dL) 114 H (70-110) mg/dL Calcium 6.6 L (8.7-10.3) mg/dL 07/24/22 07/24/22 Range/Units 10:44 11:18 RBC (4.40-5.60) X 10*6/uL Hgb (13.0-17.0) g/dL Hct (39.6-50.0) % Immature Gran # (0.00-0.04) X 10*3/uL Neutrophils # (1.80-7.70) X 10*3/uL Lymphocytes # (0.90-5.00) X 10*3/uL Eosinophils # (0.04-0.35) X 10*3/uL Sodium (135-145) mmol/L Chloride (96-109) mmol/L Anion Gap (10.00-18.00) mmol/L BUN (9.0-27.0) mg/dL Creatinine (0.6-1.5) mg/dL Est GFR (CKD-EPI)AfAm (60.0-200.0) Est GFR (CKD-EPI)NonAf (60.0-200.0) BUN/Creatinine Ratio (12.00-20.00) Ratio POC Glucose (mg/dL) 69 L 68 L (70-110) mg/dL Calcium (8.7-10.3) mg/dL Microbiology - Last 24 Hours (Table) 07/21/22 10:10 Gram Stain - Final Sputum Sputum Culture - Final
--- NOTE | 2022-07-24 15:20 | P.PN ---
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 The patient is currently being seen in the intensive care unit for alcohol withdrawal was and hypoxic respiratory failure. This morning, is awake and alert and there is no significant agitation. He remains on high flow oxygen at 45 L with an FiO2 of 56%. His current pulse ox is around 89%. Note that he had a CT angiogram at time of admission that showed no evidence of any pulmonary embolism. It showed emphysema and mild portal fibrosis. His resting comfortably in bed. He has no significant shortness of breath at rest. The same time, the patient has been in normal sinus rhythm. Noted at the time of admission, he was in atrial fibrillation and he was treated with a Cardizem drip and currently is off the drip. He is also off Precedex for now. Neurologically, he is alert and oriented 3. His most recent chest x-ray from yesterday showing some atelec tatic changes in the lung bases and emphysema. Otherwise no other major abnormalities are noted. In terms of treatment, the patient is currently on DuoNeb about treatments [id number], he is on Pulmicort Respules 1 mg twice a day, he is on IV Solu-Medrol 40 mg every 6 hours. Is also on performance 1 nevertheless treatment twice a day. He is covered with antibiotics and the patient is receiving Rocephin 2 g every 24 hours. His blood cultures from this admission is negative. The white cell count is at 12 with a hemoglobin of 14.7 and a platelet count of 188. BUN is 44 with a creatinine of 1.1 and sodium levels of 137. In terms of his viral screen, the patient had a negative Covid 19 infection. Influenza screen was negative at the time of admission. On today's evaluation of 07/16/2022, the patient remains on high flow oxygen at 45 L with an FiO2 of 50%. The patient is feeling better and less short of breath compared to yesterday. No significant cough or sputum production. The patient was offered an incentive spirometer and the patient is able to generate adequate volumes on the incentive spirometer, nevertheless, the values remain less than 500 mL. The patient is on IV Rocephin. The patient was growing Haemophilus influenza in his sputum. At the same time, the patient remains on bronchodilators and he is on DuoNeb neb blotchiness 4 times a day, he is on a combination of Perforomist and Pulmicort neb less treatments twice a day and IV Solu-Medrol and the doses 40 mg IV every 6 hours. He was started on diuretics and to dose of Lasix will be given to him today. In terms of his blood work, his sodium level is at 137 with a potassium level of 4.4, BUN of 44 with a creatinine of 1.05 with RBC count of 12 a hemoglobin 14.8 and a platelet count of 148. LFTs are essentially within normal limits. On today's evaluation of 07/17/2022, the patient has no specific complaints. The patient is gradually improving. This morning, the patient was weaned down to 40 liters with an FiO2 of 35% high flow oxygen. The patient is otherwise doing well. He is using the incentive spirometer. He is still coughing and his cough is congested. Unable to bring up much sputum. He was diuresis yesterday and he has been negative fluid balance for now. BUN is a 53 with a creatinine of 1.29 his sodium levels is 135. The patient's WBC count is at 16.4 with a hemoglobin of 14.5. Remains on DuoNeb about treatments [id number]. Remains on IV Solu-Medrol. No altered mentation. No chest pain. Remains quite weak and his been having generalized global weakness. He is on Levemir 14 units daily twice a day and the patient is on NovoLog 40 units with meals and a sliding scale coverage. No altered mentation. No other new complaints. 07/18/2022, patient is doing well. The patient has been taken off the high flow oxygen the patient is currently on 4 L of O2 nasal cannula. No new complaints. IV Solu-Medrol was then tapered down to 20 mg every 8 hours. Limited cough. No significant congestion. So bronchospastic and wheezy. Air entry is quite limited in the lung bases bilaterally. He has advanced COPD.Transferred out of the intensive care unit yesterday. He is using the incentive spirometer. On his blood work, the patient has a white cell count of 8.9 with a hemoglobin of 12.4 count of 264. The patient has a BUN of 17 with a creatinine of 0.6 and his sodium level is 145. LFTs are normal. On 07/19/2022, I'm seeing the patient for a follow-up. The patient is currently on 4 L of oxygen by nasal cannula. No new complaints. He remains on IV Solu- Medrol 40 mg every 6 hours. He remains on DuoNeb about treatments on the clock. He is still very weak and he may need rehabilitation. He was transferred out of the intensive care unit few days back. echoes at 70 with a hemoglobin of 15.3 and a platelet count of 202. BUN is at 80 with a creatinine of 1.9 and there is a slight rise in the creatinine compared to yesterday's blood work. This is probably related to diuresis. 07/20/2022, the patient is still on 4 L of Oxymizer nasal cannula. Overall respiratory status is stable. Nevertheless, the patient was having some issues with obstructive uropathy. The ornamental iron worker was consulted. The patient is having frequent bladder scans. Flomax was also added to the regimen at a dose of 0.4 mg on a daily basis. The patient's creatinine currently is at 1.9 and the BUN is 89 with a sodium level of 133. Diuretics were held. echoes at 60 with a hemoglobin 12.7. Potassium is at 4.8. LFTs are normal. The patient remains on DuoNeb about treatments [id number]. The patient remains on IV Solu-Medrol at a dose of 40 mg every 6 hours. No diuretics for now. 07/21/2022, the patient remains on 4 L of O2 nasal cannula. He was able to sit up on a recliner for next 10. Time yesterday. He stated a Rojas catheter in place. Creatinine is being monitored. he remains on DuoNeb neb on the clock is also on IV Solu-Medrol was tapered down to 40 mg every 6 hours. The patient started developing some colored mucus and for that reason, another sputum analysis will be done today. His tolerating diet. His oral intake is gradually improving. He is quite weak and debilitated. He may need an ECF placement at a later stage. No other new complaints for now. Family is at the bedside. I lengthy discussion with the patient's family The blood work from today shows a white cell count of 12.4 with a hemoglobin of 11.8. Sodium is at 131, BUN is 97 with a creatinine of 1.85 and the rest of the liver function tests are essentially within normal limits. The patient is seen today 07/22/2022 in follow-up on the regular medical floor. He is currently sitting up in a chair at the bedside. Awake and alert in no acu te distress. Maintaining O2 saturations in the 90s on 4 L/m per nasal cannula. Blood cultures revealed no growth. Sputum culture pending. White count 13.7. Hemoglobin 12.6. Sodium 132. Potassium 5.7. Bicarb 28. BUN 105. Creatinine 2.08. Glucose 139. He is continued on DuoNeb inhalations, Pulmicort and Perforomist inhalations, prednisone taper. The patient is seen today 07/23/2022 in follow-up on the regular medical floor. He is awake and alert in no acute distress. Sitting up in a chair at the bedside. Maintaining O2 saturations in the 90s on 4 L/m per nasal cannula. Blood and sputum cultures revealed no growth. White count 11.8. Hemoglobin 11.2. Sodium 129. Potassium 4.7. BUN 103. Creatinine 1.86. Glucose 77. Remains on DuoNeb inhalations, Pulmicort and Perforomist inhalations, prednisone taper. The patient's stool was positive for occult blood. The plan is for EGD/colonoscopy on 07/25/2022. Currently on a clear liquid diet. The patient is seen today 07/24/2022 in follow-up on the regular medical floor. Currently sitting up in a chair at the bedside. Awake and alert in no acute distress. He is maintaining good O2 saturations in the 90s on 4 L/m per nasal cannula. No worsening shortness of breath, cough or congestion. White count 8.9. Hemoglobin 10.6. Sodium 130. Potassium 4.8. BUN 77. Creatinine 1.6. Glucose 70. He received Lasix 40 mg IVP 1 today. Currently in a negative balance. Remains on DuoNeb inhalations, Pulmicort and Perforomist inhalations, prednisone taper. He is awaiting a EGD/colonoscopy tomorrow. Objective - Vital Signs Vital signs: Vital Signs Temp 97.3 F L 07/24/22 08:00 Pulse 66 07/24/22 11:57 Resp 18 07/24/22 08:00 BP 108/69 07/24/22 12:10 Pulse Ox 95 07/24/22 10:00 FiO2 35 07/17/22 11:06 Intake & Output 07/23/22 07/24/22 07/24/22 18:59 06:59 18:59 Output Total 400 800 Balance -400 -800 Weight 86 kg Output: Urine 400 800 Other: Voiding Method Indwelling Catheter Indwelling Catheter Indwelling Catheter - Exam Alert, 66-year-old male, no acute distress, currently on 4 L nasal cannula. HEENT examination is grossly unremarkable. Neck supple. Full range of motion. No adenopathy thyromegaly or neck vein distention. Cardiovascular examination reveals regular rhythm rate. S1-S2 normal. No S3 or S4. No discernible murmur noted. Heart sounds are distant. Lungs reveal bilateral coarse inspiratory expiratory rhonchi, and expiratory wheezes. No crackles. Abdomen soft, without bowel sounds. No masses or tenderness. Extremities are intact. No cyanosis clubbing or edema. Skin is without rash or lesion.Examination of the skin revealed no evidence of significant rashes, suspicious appearing nevi or other concerning lesions. Neurologic examination Neurologically, the patient is awake and alert and the patient does not have any focal neurological deficit. Cranial nerves are essentially intact. - Labs CBC & Chem 7: 07/24/22 06:39 07/24/22 06:39 Labs: Abnormal Lab Results - Last 24 Hours (Table) 07/23/22 07/24/22 07/24/22 Range/Units 19:23 01:48 02:04 RBC (4.40-5.60) X 10*6/uL Hgb (13.0-17.0) g/dL Hct (39.6-50.0) % Immature Gran # (0.00-0.04) X 10*3/uL Neutrophils # (1.80-7.70) X 10*3/uL Lymphocytes # (0.90-5.00) X 10*3/uL Eosinophils # (0.04-0.35) X 10*3/uL Sodium (135-145) mmol/L Chloride (96-109) mmol/L Anion Gap (10.00-18.00) mmol/L BUN (9.0-27.0) mg/dL Creatinine (0.6-1.5) mg/dL Est GFR (CKD-EPI)AfAm (60.0-200.0) Est GFR (CKD-EPI)NonAf (60.0-200.0) BUN/Creatinine Ratio (12.00-20.00) Ratio POC Glucose (mg/dL) 136 H 62 L 59 L (70-110) mg/dL Calcium (8.7-10.3) mg/dL 07/24/22 07/24/22 07/24/22 Range/Units 05:55 06:39 06:39 RBC 3.63 L (4.40-5.60) X 10*6/uL Hgb 10.6 L (13.0-17.0) g/dL Hct 32.3 L (39.6-50.0) % Immature Gran # 0.05 H (0.00-0.04) X 10*3/uL Neutrophils # 8.22 H (1.80-7.70) X 10*3/uL Lymphocytes # 0.43 L (0.90-5.00) X 10*3/uL Eosinophils # 0.03 L (0.04-0.35) X 10*3/uL Sodium 130 L (135-145) mmol/L Chloride 95 L (96-109) mmol/L Anion Gap 8.80 L (10.00-18.00) mmol/L BUN 77.0 H (9.0-27.0) mg/dL Creatinine 1.6 H (0.6-1.5) mg/dL Est GFR (CKD-EPI)AfAm 50.6 L (60.0-200.0) Est GFR (CKD-EPI)NonAf 43.6 L (60.0-200.0) BUN/Creatinine Ratio 48.13 H (12.00-20.00) Ratio POC Glucose (mg/dL) 114 H (70-110) mg/dL Calcium 6.6 L (8.7-10.3) mg/dL 07/24/22 07/24/22 Range/Units 10:44 11:18 RBC (4.40-5.60) X 10*6/uL Hgb (13.0-17.0) g/dL Hct (39.6-50.0) % Immature Gran # (0.00-0.04) X 10*3/uL Neutrophils # (1.80-7.70) X 10*3/uL Lymphocytes # (0.90-5.00) X 10*3/uL Eosinophils # (0.04-0.35) X 10*3/uL Sodium (135-145) mmol/L Chloride (96-109) mmol/L Anion Gap (10.00-18.00) mmol/L BUN (9.0-27.0) mg/dL Creatinine (0.6-1.5) mg/dL Est GFR (CKD-EPI)AfAm (60.0-200.0) Est GFR (CKD-EPI)NonAf (60.0-200.0) BUN/Creatinine Ratio (12.00-20.00) Ratio POC Glucose (mg/dL) 69 L 68 L (70-110) mg/dL Calcium (8.7-10.3) mg/dL Assessment and Plan Assessment: Acute hypoxemic respiratory failure secondary to COPD exacerbation and the patient presented with acute hypoxic and hypercapnic respiratory failure. Oxygenation has improved. Chest x-ray showing atelectatic changes a lung base bilaterally. The patient remains on 4 liters nasal cannula. Severe COPD and the patient has an FEV1 of 39% of predicted at baseline and this is based on spirometry that was done on 09/28/2020. The patient has been maintained on Advair and DuoNeb about treatments [id number].. Delirium, recovered Acute kidney injury and the creatinine is currently 1.6. GFR of 43 Acute tracheobronchitis. Supraventricular tachycardia/atrial fibrillation with RVR. Patient is currently on normal sinus rhythm. The patient is also on anticoagulation with Eliquis. The patient has a normal LV function Acute hypernatremia, recovered History of laryngeal carcinoma, in remission, status post radiation treatment, diagnosed in 2017. Acute hypercapnic respiratory failure secondary to severe COPD. GI bleed with positive stool for occult blood, current hemoglobin 10.6. Plans f or EGD/colonoscopy on 07/25/2022 Plan The patient was seen and evaluated Medications and labs reviewed Stable and on 4 L nasal cannula Titrate the FiO2 as tolerated Continue a prednisone taper Change Pulmicort and Perforomist to Symbicort Plan is for EGD/colonoscopy on 07/25/2022 Home once cleared by medicine I have personally seen and examined the patient, performed the documentation and the assessment and plan as written. Number of minutes spent on the visit: 10.
--- NOTE | 2022-07-24 15:26 | P.PN ---
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 Patient tried breathing treatments at home without much relief. Patient was tachycardic on admission with heart rate in 160s and was found to be SVT patient was given Ellenson in the ER. Otherwise denied any complaints of chest pain. No nausea vomiting or abdominal pain. Denied any increased leg swelling. No fever no chills. No prior history of SVT. Chest x-ray showed COPD. No active cardiopulmonary disease. Mild pulmonary fibrotic changes. No significant change. CTA chest showed no evidence of PE. Emphysema and mild pulmonary fibrosis. No suspicious pulmonary mass. Laboratory data showed WBC 16.0 hemoglobin 16.0 and platelets 269 Sodium 139 potassium four-point 102 bicarb is 20 BUN 16 and creatinine 0.87 and lactic acid 2.7 Troponin x1 negative and proBNP is 378 TSH 0.49 6 Coronavirus and influenza AMB not detected. Urinalysis is negative for infection. 07/08/2022 Patient continues to be monitored in intensive care unit mostly on BiPAP support but able to be weaned to 3 to 4 L of oxygen via nasal cannula. He is unsure when he has had bowel movement and has limited to no bowel sounds for this reason abdominal xray has been performed showing mildly distended small bowel loops and some segments of colon as well. Consider generalized ileus and difficult to exclude the possibility of a distal colonic obstruction. White blood cell count today 6.1, sodium 144, potassium 4.6, BUN 40, creatinine 0.99, blood glucose 150, magnesium 2.4. Procalcitonin 0.55. Vitals today, patient is afebrile, heart rate 71, blood pressure 121/64, 95% oxygen saturation. Patient has been maintained on dexmedetomidine for acute anxiety which is currently paused. Continues on IV Solu-Medrol, and bronchodilators. Patient is currently on IV cardizem gtt for tachycardia and will be transitioned to oral verapamil today, cardiology is following. 07/09/2022 Patient continues to be monitored in intensive care unit. White count elevated up to 12.4 today he has expiratory wheezing on exam changed from yesterday. Patient requiring bipap at 35% FiO2 currently. He did have low grade fever this morning 99 and is receiving acetaminophen as needed. chest xray today showing chronic emphysema and pulmonary fibrotic change. Procalcitonin level elevated at 0.55. IV ceftriaxone increased to 2 gram every 24 hours. Patient is continued on bronchodilators. Continues on IV solumedrol 60 mg q6h. Dexmedetomidine possibly being weaned off today, seroquel and haldol ordered with ativan as needed. Patient continues with significant abdominal distention and absent bowel sounds left lower quadrant. Did not receive lactulose yesterday. General surgery was consulted for further evaluation, currently placed NPO for possible ileus /bowel obstruction. He is hypertensive today with systolic in the 180s has been started on verapamil TID and also hydralazine 50 BID. Cardiology following. 07/10/2022 Patient evaluated today on BiPAP, fio2 has been increased to 40%, he is using accessory muscles to breath and appears quite aggitated. He is on combination of haldol, seroquel for this. Additionally, he was started on nicotine patch and clonidine patch. NG tube has been placed, patient has not had a BM. Abdominal Pelvis CT completed showing no CT evidence for small bowel obstruction. Patient also had follow up chest xray today showing COPD changes and no acute disease. Never the less he appears to have some respiratory distress requiring BiPAP. white count 11.7 today, sodium 149, BUN 47, creatinine 1.05, blood glucose 170s. Patient has been placed on amiodarone infusion and also heparin gtt as patient is unable to take oral medications currently. He continues on antibiotics. Continues on IV solumedrol. 07/11/2022 Patient is monitored in intensive care unit. Continues with NG tube. Tube feedings have been resumed with vital AF 1.2 with goal of 55 mls per hour. Currrently running at 20 mLs/hour. Patient has free water flush 30 mL every 4 hours, would like to increase free water and discontinue IV fluids. Sodium level today 148, potassium 4.1, chloride 110, BUN 51, creatinine 1.08. Blood glucose in the 240s and insulin has been increased. Patient is receiving lactulose, had fleet enema today. Has not had a BM this admission, bowel sounds in all 4 quadrants today. Amiodarone has been discontinued. Continues on oral verapamil. Heart rate is improving. Patient trialed on airvo 60/60 today. Chest xray showing no focal consolidation. 07/12/2022 Patient is evaluated in ICU, family at bedside. Continues on Airvo 60/60, reports non productive cough. Diffuse weakness. Abdomen distended seems worse than yesterday. Discussed with surgery. Tube feedings have been placed on hold a nd patient started on daily suppositories. Otherwise continues on empiric ceftriaxone. Chest xray showing COPD with possible underlying pulmonary vascular congestion. Sodium up to 150 today, nephrology consulted. Patient has been started on D5% water at 75 mls per hour. BUN 55 creatinine 1.22 today. Blood glucose 230s. Heart rate 120s today, blood pressure 130/91, remains afebrile. 07/13/2022 Patient continue in Intensive Care unit. Continues on Airvo 60/60. He reports breathing improved today less short of breath. Lung sounds have improved and increased aeration. Less congested. No BM yet, has been started on dulcolax suppository daily. Increased bowel sounds today and abdomen is less distended. Remains on IV ceftriaxone. White count normalized to 9.9. Sodium remains at 150, BUN 51, creatinine 1.21. Blood glucose 200s. hgb A1c found to be 6.5 consistent with diagnosis of diabetes mellitus type 2. Continues on levemir with sliding scale and scheduled novolog coverage. Remains afebrile, heart rate 87, blood pressure 177/91, oxygen saturation 95%. IV steroids have been decreased today. Continues on oral cardizem, oral verapamil. Continues on D5 water at 75 mls per hour. 07/14/2022 Patient continues to be monitored closely in intensive care unit. He continues on Airvo 45/60, has tolerated weaning and continues to report improvement in work of breathing. No wheezing noted on exam today has some coarse scattered ronchi. NG tube remains in place, he did have BM. Will discuss with surgery if NG tube can be discontinued. Will add nystatin swish today which can be applied manually versus swishing. Patient remains diffusely weak has been on bedrest. No breakdown noted on skin. Continues on oral amiodarone, verapamil, anticoagulated with eliquis. Patient has been maintained on empiric antibiotic coverage with IV ceftriaxone, tomorrow will be day 5. white count has normalized consider discontinuing antibiotics tomorrow. Patient is maintaining sinus rhythm today heart rate 80s, blood pressure 159/78, 93% oxygen saturation, has remained afebrile. Labs today are improving, white count remains within normal limits at 10.4, sodium 142, potassium 4.5, chloride normalized to 104, BUN 48, creatinine 1.08. Blood glucose 160s to 200s. IV fluids have been changed to D5 1/2 NS at 50. Repeat labs tomorrow. Multiple consultations following. PT/OT has been consulted. 07/15/22. Patient seen and examined. Daughter at the bedside. Patient continues to be on heated high flow oxygen. States he feels better. Denies any nausea, vomiting. Case discussed with nursing staff 07/16/22. Patient seen and examined. Stated that he had a panic attack this morning, currently doing much better. Breathing is improving. Denies any chest pain. Continues to be on heated high flow 07/17/22. Patient seen and examined. Continues to be on heated high flow. Does not look any acute distress. 07/18/22. Patient seen and examined. Patient is transferred out of ICU. Currently on 4 L of oxygen. Gets short of breath on exertion. Otherwise patient is doing better compared to yesterday 07/19. Patient seen and examined. Continues to be on 4 L of oxygen. Creatinine has bumped up to 1.9. Gets short of breath on exertion. Patient is very weak 07/20. Patient seen and examined. Still gets short of breath on minimal exertion. Denies any chest pain. Not very keen to get out of the bed. Explained to him that he needs to get out of the bed 07/21. Patient seen and examined. Currently sitting in the chair. States he feels better compared to yesterday. Still complaining of productive cough 07/22/2022 Patient monitored sitting up in chair today. He continues on 4L nasal cannula. Hypotensive today blood pressures in the 80s systolic. 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 Verapamil has been placed on hold. Creatinine increased up to 2.08 today, most likely from acute hypotensive episode. He continues in sinus rhythm heart rate in the 70s. Potassium 5.7, sodium 132. Sputum culture pending. 07/23/2022 Patient sitting up in chair today. No acute events overnight. He does report some dizziness. Blood pressure on the lower side throughout the evening and he received a 500 mL fluid bolus. Started on midodrine yesterday as well. Blood pressure improved to 110s/50s. Continues on 4L nasal cannula. Surgery has been following for reports of maroon colored stools which patient reports have resolved, and he is scheduled to undergo EGD colonoscopy . Hgb 11.2. Creatinine improved to 1.8 today. He continues with indwelling catheter. 07/24/2022 Patient resting in bed today. Started goLytely prep for EGD/colonoscopy tomorrow. Reports worsening shortness of breath today. He has scattered wheezing today. Patient would benefit from lasix which nephrology has ordered an IV dose x 1 today, 40 mg and will start oral lasix 40 mg daily tomorrow. Hemoglobin remains stable at 10.6, sodium 130, BUN 77, creatinine 1.6 today. Blood glucose in the 70s, monitor closely. Decreased levemir and scheduled insulin. Continues with indwelling catheter. Blood pressure improved, 108/69. Continues on midodrine. Review of Systems Constitutional: Reports fatigue denied any fever. Cardio vascular: denied any chest pain, palpitations Gastrointestinal: denied any nausea, vomiting, diarrhea, maroon stools resolved. Pulmonary: Reports increased shortness of breath, no cough. Neurologic denied any new focal deficits All inpatient medications were reviewed and appropriate changes in these medications as dictated in the interval history and assessment and plan. PHYSICAL EXAMINATION: GENERAL: The patient is alert and oriented x3, not in any acute distress. Well developed, well nourished. Fatigued, pale. HEENT: Pupils are round and equally reacting to light. EOMI. No scleral icterus. No conjunctival pallor. Normocephalic, atraumatic. No pharyngeal erythema. No thyromegaly. CARDIOVASCULAR: S1 and S2 present. No murmurs, rubs, or gallops. PULMONARY: Scattered wheezing, coarse lung sounds bilaterally. Faint bibasilar crackles. ABDOMEN: Soft, nontender, distended, normoactive bowel sounds. No palpable organomegaly. Round, obese. MUSCULOSKELETAL: No joint swelling or deformity. EXTREMITIES: No cyanosis, clubbing, or pedal edema. NEUROLOGICAL: Gross neurological examination did not reveal any focal deficits. Diffuse generalized weakness. SKIN: No rashes. Assessment and plan Acute COPD exacerbation and tracheobronchitis, improving Acute hypoxemic respiratory failure secondary to above, has been weaned off BiPAP/Airvo support and currently on 4L nasal cannula SVT/Atrial fibrillation with rapid rate converted to normal sinus rhythm Hypertension currently hypotensive, improving on midodrine. Rule out GI bleed with reports of maroon colored stool. - pending endoscopy. Hypernatremia, resolved currently hyponatremic Metabolic acidosis resolved Acute kidney injury, initially resolved, creatinine elevated from hypotension and component of urinary retention slightly improved 1.6 Urinary retention with indwelling greenfield catheter Diabetes Mellitus type 2 A1C 6.5. Ileus, resolved BPH Prior history of smoking History of throat cancer and vocal cord status post radiation 2016 GI prophylaxis DVT prophylaxis Full Code Plan: Continue oxygen supplementation, aggressive pulmonary hygiene Short term amiodarone therapy for one month and then discontinue per cardiology Patient started on midodrine, verapamil on hold. Continue Flomax, indwelling catheter EGD/Colonoscopy scheduled on 07/25/22 IV lasix x 1 today and oral lasix resumed tomorrow Repeat BMP/CBC in AM Continues on oral steroid taper Subacute rehab on discharge when medically stable The impression and plan of care has been dictated by Maria De Jesus Mccoy Nurse Practitioner as directed. Dr. Alison MD I have performed a history and physical examination and medical decision making of this patient, discussed the same with the dictator, and agree with the dictators assessment and plan as written, documented as a scribe. Based on total visit time, I have performed more than 50% of this visit. Objective - Vital Signs Vital signs: Vital Signs Temp 97.3 F L 07/24/22 08:00 Pulse 66 07/24/22 11:57 Resp 18 07/24/22 08:00 BP 108/69 07/24/22 12:10 Pulse Ox 95 07/24/22 10:00 FiO2 35 07/17/22 11:06 Intake & Output 07/23/22 07/24/22 07/24/22 18:59 06:59 18:59 Output Total 400 800 Balance -400 -800 Weight 86 kg Output: Urine 400 800 Other: Voiding Method Indwelling Catheter Indwelling Catheter Indwelling Catheter - Labs CBC & Chem 7: 07/24/22 06:39 07/24/22 06:39 Labs: Abnormal Lab Results - Last 24 Hours (Table) 07/23/22 07/24/22 07/24/22 Range/Units 19:23 01:48 02:04 RBC (4.40-5.60) X 10*6/uL Hgb (13.0-17.0) g/dL Hct (39.6-50.0) % Immature Gran # (0.00-0.04) X 10*3/uL Neutrophils # (1.80-7.70) X 10*3/uL Lymphocytes # (0.90-5.00) X 10*3/uL Eosinophils # (0.04-0.35) X 10*3/uL Sodium (135-145) mmol/L Chloride (96-109) mmol/L Anion Gap (10.00-18.00) mmol/L BUN (9.0-27.0) mg/dL Creatinine (0.6-1.5) mg/dL Est GFR (CKD-EPI)AfAm (60.0-200.0) Est GFR (CKD-EPI)NonAf (60.0-200.0) BUN/Creatinine Ratio (12.00-20.00) Ratio POC Glucose (mg/dL) 136 H 62 L 59 L (70-110) mg/dL Calcium (8.7-10.3) mg/dL 07/24/22 07/24/22 07/24/22 Range/Units 05:55 06:39 06:39 RBC 3.63 L (4.40-5.60) X 10*6/uL Hgb 10.6 L (13.0-17.0) g/dL Hct 32.3 L (39.6-50.0) % Immature Gran # 0.05 H (0.00-0.04) X 10*3/uL Neutrophils # 8.22 H (1.80-7.70) X 10*3/uL Lymphocytes # 0.43 L (0.90-5.00) X 10*3/uL Eosinophils # 0.03 L (0.04-0.35) X 10*3/uL Sodium 130 L (135-145) mmol/L Chloride 95 L (96-109) mmol/L Anion Gap 8.80 L (10.00-18.00) mmol/L BUN 77.0 H (9.0-27.0) mg/dL Creatinine 1.6 H (0.6-1.5) mg/dL Est GFR (CKD-EPI)AfAm 50.6 L (60.0-200.0) Est GFR (CKD-EPI)NonAf 43.6 L (60.0-200.0) BUN/Creatinine Ratio 48.13 H (12.00-20.00) Ratio POC Glucose (mg/dL) 114 H (70-110) mg/dL Calcium 6.6 L (8.7-10.3) mg/dL 07/24/22 07/24/22 Range/Units 10:44 11:18 RBC (4.40-5.60) X 10*6/uL Hgb (13.0-17.0) g/dL Hct (39.6-50.0) % Immature Gran # (0.00-0.04) X 10*3/uL Neutrophils # (1.80-7.70) X 10*3/uL Lymphocytes # (0.90-5.00) X 10*3/uL Eosinophils # (0.04-0.35) X 10*3/uL Sodium (135-145) mmol/L Chloride (96-109) mmol/L Anion Gap (10.00-18.00) mmol/L BUN (9.0-27.0) mg/dL Creatinine (0.6-1.5) mg/dL Est GFR (CKD-EPI)AfAm (60.0-200.0) Est GFR (CKD-EPI)NonAf (60.0-200.0) BUN/Creatinine Ratio (12.00-20.00) Ratio POC Glucose (mg/dL) 69 L 68 L (70-110) mg/dL Calcium (8.7-10.3) mg/dL Assessment and Plan Time with Patient: Less than 30
[2022-07-24 16:30] LABS: Glucose,Whole Blood 114 mg/dL (70-110)
[2022-07-24] MEDS: SYMBICORT 160-4.5 MCG INHALER INHALATION SCH (20:17)
[2022-07-24 22:08] LABS: Glucose,Whole Blood 140 mg/dL (70-110)
[2022-07-24] MEDS: ATORVASTATIN 10 MG TAB PO SCH (22:09)
[2022-07-25 04:30] LABS: Glucose,Whole Blood 59 mg/dL (70-110)
[2022-07-25] MEDS: DEXTROSE 50% SYRINGE 50 ML IVP PRN ×2 (04:39→11:58)
[2022-07-25 05:05] LABS: Glucose,Whole Blood 112 mg/dL (70-110)
[2022-07-25 06:14] LABS: Glucose,Whole Blood 68 mg/dL (70-110)
[2022-07-25] MEDS: INSULIN DETEMIR (LEVEMIR) 100 UNIT/ML SYR SQ SCH ×2 (06:21→20:55)
[2022-07-25] MEDS: INSULIN ASPART (NovoLOG) 100 UNIT/ML VIAL SQ SCH ×8 (06:24→20:54)
[2022-07-25] MEDS: MIDODRINE 5 MG TAB PO SCH ×3 (06:41→16:59)
[2022-07-25 07:03] LABS: Glucose,Whole Blood 111 mg/dL (70-110)
[2022-07-25] MEDS: SYMBICORT 160-4.5 MCG INHALER INHALATION SCH ×2 (07:48→19:37)
[2022-07-25] MEDS: IPRATROPIUM-ALBUTEROL 3 ML NEB INHALATION SCH ×4 (07:48→19:37)
[2022-07-25 08:03] LABS: African American GFR (CKD) 60 (>60 ml/min/1.73 sqM); Anion Gap 0 mmol/L; Blood Urea Nitrogen 66 mg/dL (9-20); Carbon Dioxide 32 mmol/L (22-30); Chloride 97 mmol/L (98-107); Glucose 99 mg/dL (74-99); Non-African American GFR(CKD) 51 (>60 ml/min/1.73 sqM); Sodium 129 mmol/L (137-145)
[2022-07-25 08:08] LABS: Calcium 6.2 mg/dL (8.4-10.2)
[2022-07-25] MEDS: predniSONE 10 MG TAB PO SCH (08:16)
[2022-07-25] MEDS: FUROSEMIDE 40 MG TAB PO SCH (08:17)
[2022-07-25] MEDS: FAMOTIDINE 20 MG TAB PO SCH (08:17)
[2022-07-25] MEDS: TAMSULOSIN 0.4 MG CAP.ER.24H PO SCH (08:17)
[2022-07-25] MEDS: bisacodyL 10 MG SUPP RECTAL SCH (08:17)
[2022-07-25] MEDS: NYSTATIN 100,000 UNIT/ML SUSP 500,000 UNIT/5 ML CUP PO SCH ×4 (08:17→21:07)
[2022-07-25] MEDS: AMIODARONE 200 MG TAB PO SCH ×2 (08:17→21:07)
--- NOTE | 2022-07-25 11:15 | P.PN ---
Subjective Patient is seen for follow-up for acute kidney injury and hypernatremia. Patient was noted to have significant urine retention and currently has an indwelling Rojas catheter. Systolic blood pressure was on the lower side around 91-85 mmHg. Improved with midodrine. 1200 mL of urine noted on 24-hour output Currently not on any IV fluids or diuretics. Serum creatinine 1.4 today. Status post IV Lasix yesterday and started on on oral Lasix 40 mg daily. Objective - Vital Signs Vital signs: Vital Signs Temp 97.4 F L 07/25/22 08:47 Pulse 71 07/25/22 08:47 Resp 17 07/25/22 08:47 BP 129/75 07/25/22 08:47 Pulse Ox 99 07/25/22 08:47 FiO2 35 07/17/22 11:06 Intake & Output 07/24/22 07/25/22 07/25/22 18:59 06:59 18:59 Intake Total 1500 Output Total 1100 Balance 1500 -1100 Weight 88 kg Intake: Oral 1500 Output: Urine 1100 Other: Voiding Method Indwelling Catheter Indwelling Catheter # Bowel Movements 4 - Exam Awake, comfortable, no acute distress Examination of the heart S1 and S2 Examination lungs decreased breath sounds at the bases Abdomen is soft nontender Examination lower extremity shows edema 2+ bilaterally BLENDER SNUFF exam grossly intact - Labs CBC & Chem 7: 07/24/22 06:39 07/25/22 07:02 Labs: Abnormal Lab Results - Last 24 Hours (Table) 07/24/22 07/24/22 07/24/22 Range/Units 06:39 11:18 16:28 RBC 3.63 L (4.40-5.60) X 10*6/uL Hgb 10.6 L (13.0-17.0) g/dL Hct 32.3 L (39.6-50.0) % Immature Gran # 0.05 H (0.00-0.04) X 10*3/uL Neutrophils # 8.22 H (1.80-7.70) X 10*3/uL Lymphocytes # 0.43 L (0.90-5.00) X 10*3/uL Eosinophils # 0.03 L (0.04-0.35) X 10*3/uL Sodium (137-145) mmol/L Chloride (98-107) mmol/L Carbon Dioxide (22-30) mmol/L BUN (9-20) mg/dL Creatinine (0.66-1.25) mg/dL POC Glucose (mg/dL) 68 L 114 H (70-110) mg/dL Calcium (8.4-10.2) mg/dL 07/24/22 07/25/22 07/25/22 Range/Units 22:06 04:27 05:04 RBC (4.40-5.60) X 10*6/uL Hgb (13.0-17.0) g/dL Hct (39.6-50.0) % Immature Gran # (0.00-0.04) X 10*3/uL Neutrophils # (1.80-7.70) X 10*3/uL Lymphocytes # (0.90-5.00) X 10*3/uL Eosinophils # (0.04-0.35) X 10*3/uL Sodium (137-145) mmol/L Chloride (98-107) mmol/L Carbon Dioxide (22-30) mmol/L BUN (9-20) mg/dL Creatinine (0.66-1.25) mg/dL POC Glucose (mg/dL) 140 H 59 L 112 H (70-110) mg/dL Calcium (8.4-10.2) mg/dL 07/25/22 07/25/22 07/25/22 Range/Units 06:11 07:00 07:02 RBC (4.40-5.60) X 10*6/uL Hgb (13.0-17.0) g/dL Hct (39.6-50.0) % Immature Gran # (0.00-0.04) X 10*3/uL Neutrophils # (1.80-7.70) X 10*3/uL Lymphocytes # (0.90-5.00) X 10*3/uL Eosinophils # (0.04-0.35) X 10*3/uL Sodium 129 L (137-145) mmol/L Chloride 97 L (98-107) mmol/L Carbon Dioxide 32 H (22-30) mmol/L BUN 66 H (9-20) mg/dL Creatinine 1.40 H (0.66-1.25) mg/dL POC Glucose (mg/dL) 68 L 111 H (70-110) mg/dL Calcium 6.2 L* (8.4-10.2) mg/dL Assessment and Plan Assessment: 1. Acute kidney injury secondary to combination of low blood pressure as well as possible prostatism with urine retention, currently with indwelling Rojas catheter. Blood pressure medications were reduced significantly, Blood pressure remains on the lower side. Started on midodrine. 2. Ileus. Resolved. 3. A. fib. Cardiology following. Rate controlled. 4. Diabetes mellitus. 5. Neurogenic bladder Rojas catheter inserted last night 07/20/2022, started on Flomax 6. Volume overload 7. Hyponatremia, hypervolemic Plan: Increase Lasix to 40 mg twice a day Repeat labs in a.m.
--- NOTE | 2022-07-25 11:37 | P.PN ---
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 The patient is currently being seen in the intensive care unit for alcohol withdrawal was and hypoxic respiratory failure. This morning, is awake and alert and there is no significant agitation. He remains on high flow oxygen at 45 L with an FiO2 of 56%. His current pulse ox is around 89%. Note that he had a CT angiogram at time of admission that showed no evidence of any pulmonary embolism. It showed emphysema and mild portal fibrosis. His resting comfortably in bed. He has no significant shortness of breath at rest. The same time, the patient has been in normal sinus rhythm. Noted at the time of admission, he was in atrial fibrillation and he was treated with a Cardizem drip and currently is off the drip. He is also off Precedex for now. Neurologically, he is alert and oriented 3. His most recent chest x-ray from yesterday showing some atelec tatic changes in the lung bases and emphysema. Otherwise no other major abnormalities are noted. In terms of treatment, the patient is currently on DuoNeb about treatments [id number], he is on Pulmicort Respules 1 mg twice a day, he is on IV Solu-Medrol 40 mg every 6 hours. Is also on performance 1 nevertheless treatment twice a day. He is covered with antibiotics and the patient is receiving Rocephin 2 g every 24 hours. His blood cultures from this admission is negative. The white cell count is at 12 with a hemoglobin of 14.7 and a platelet count of 188. BUN is 44 with a creatinine of 1.1 and sodium levels of 137. In terms of his viral screen, the patient had a negative Covid 19 infection. Influenza screen was negative at the time of admission. On today's evaluation of 07/16/2022, the patient remains on high flow oxygen at 45 L with an FiO2 of 50%. The patient is feeling better and less short of breath compared to yesterday. No significant cough or sputum production. The patient was offered an incentive spirometer and the patient is able to generate adequate volumes on the incentive spirometer, nevertheless, the values remain less than 500 mL. The patient is on IV Rocephin. The patient was growing Haemophilus influenza in his sputum. At the same time, the patient remains on bronchodilators and he is on DuoNeb neb blotchiness 4 times a day, he is on a combination of Perforomist and Pulmicort neb less treatments twice a day and IV Solu-Medrol and the doses 40 mg IV every 6 hours. He was started on diuretics and to dose of Lasix will be given to him today. In terms of his blood work, his sodium level is at 137 with a potassium level of 4.4, BUN of 44 with a creatinine of 1.05 with RBC count of 12 a hemoglobin 14.8 and a platelet count of 148. LFTs are essentially within normal limits. On today's evaluation of 07/17/2022, the patient has no specific complaints. The patient is gradually improving. This morning, the patient was weaned down to 40 liters with an FiO2 of 35% high flow oxygen. The patient is otherwise doing well. He is using the incentive spirometer. He is still coughing and his cough is congested. Unable to bring up much sputum. He was diuresis yesterday and he has been negative fluid balance for now. BUN is a 53 with a creatinine of 1.29 his sodium levels is 135. The patient's WBC count is at 16.4 with a hemoglobin of 14.5. Remains on DuoNeb about treatments [id number]. Remains on IV Solu-Medrol. No altered mentation. No chest pain. Remains quite weak and his been having generalized global weakness. He is on Levemir 14 units daily twice a day and the patient is on NovoLog 40 units with meals and a sliding scale coverage. No altered mentation. No other new complaints. 07/18/2022, patient is doing well. The patient has been taken off the high flow oxygen the patient is currently on 4 L of O2 nasal cannula. No new complaints. IV Solu-Medrol was then tapered down to 20 mg every 8 hours. Limited cough. No significant congestion. So bronchospastic and wheezy. Air entry is quite limited in the lung bases bilaterally. He has advanced COPD.Transferred out of the intensive care unit yesterday. He is using the incentive spirometer. On his blood work, the patient has a white cell count of 8.9 with a hemoglobin of 12.4 count of 264. The patient has a BUN of 17 with a creatinine of 0.6 and his sodium level is 145. LFTs are normal. On 07/19/2022, I'm seeing the patient for a follow-up. The patient is currently on 4 L of oxygen by nasal cannula. No new complaints. He remains on IV Solu- Medrol 40 mg every 6 hours. He remains on DuoNeb about treatments on the clock. He is still very weak and he may need rehabilitation. He was transferred out of the intensive care unit few days back. echoes at 70 with a hemoglobin of 15.3 and a platelet count of 202. BUN is at 80 with a creatinine of 1.9 and there is a slight rise in the creatinine compared to yesterday's blood work. This is probably related to diuresis. 07/20/2022, the patient is still on 4 L of Oxymizer nasal cannula. Overall respiratory status is stable. Nevertheless, the patient was having some issues with obstructive uropathy. The inseam leveler was consulted. The patient is having frequent bladder scans. Flomax was also added to the regimen at a dose of 0.4 mg on a daily basis. The patient's creatinine currently is at 1.9 and the BUN is 89 with a sodium level of 133. Diuretics were held. echoes at 60 with a hemoglobin 12.7. Potassium is at 4.8. LFTs are normal. The patient remains on DuoNeb about treatments [id number]. The patient remains on IV Solu-Medrol at a dose of 40 mg every 6 hours. No diuretics for now. 07/21/2022, the patient remains on 4 L of O2 nasal cannula. He was able to sit up on a recliner for next 10. Time yesterday. He stated a Rojas catheter in place. Creatinine is being monitored. he remains on DuoNeb neb on the clock is also on IV Solu-Medrol was tapered down to 40 mg every 6 hours. The patient started developing some colored mucus and for that reason, another sputum analysis will be done today. His tolerating diet. His oral intake is gradually improving. He is quite weak and debilitated. He may need an ECF placement at a later stage. No other new complaints for now. Family is at the bedside. I lengthy discussion with the patient's family The blood work from today shows a white cell count of 12.4 with a hemoglobin of 11.8. Sodium is at 131, BUN is 97 with a creatinine of 1.85 and the rest of the liver function tests are essentially within normal limits. The patient is seen today 07/22/2022 in follow-up on the regular medical floor. He is currently sitting up in a chair at the bedside. Awake and alert in no acu te distress. Maintaining O2 saturations in the 90s on 4 L/m per nasal cannula. Blood cultures revealed no growth. Sputum culture pending. White count 13.7. Hemoglobin 12.6. Sodium 132. Potassium 5.7. Bicarb 28. BUN 105. Creatinine 2.08. Glucose 139. He is continued on DuoNeb inhalations, Pulmicort and Perforomist inhalations, prednisone taper. The patient is seen today 07/23/2022 in follow-up on the regular medical floor. He is awake and alert in no acute distress. Sitting up in a chair at the bedside. Maintaining O2 saturations in the 90s on 4 L/m per nasal cannula. Blood and sputum cultures revealed no growth. White count 11.8. Hemoglobin 11.2. Sodium 129. Potassium 4.7. BUN 103. Creatinine 1.86. Glucose 77. Remains on DuoNeb inhalations, Pulmicort and Perforomist inhalations, prednisone taper. The patient's stool was positive for occult blood. The plan is for EGD/colonoscopy on 07/25/2022. Currently on a clear liquid diet. The patient is seen today 07/24/2022 in follow-up on the regular medical floor. Currently sitting up in a chair at the bedside. Awake and alert in no acute distress. He is maintaining good O2 saturations in the 90s on 4 L/m per nasal cannula. No worsening shortness of breath, cough or congestion. White count 8.9. Hemoglobin 10.6. Sodium 130. Potassium 4.8. BUN 77. Creatinine 1.6. Glucose 70. He received Lasix 40 mg IVP 1 today. Currently in a negative balance. Remains on DuoNeb inhalations, Pulmicort and Perforomist inhalations, prednisone taper. He is awaiting a EGD/colonoscopy tomorrow. The patient is seen today 07/25/2022 in follow-up on the regular medical floor. He is awake and alert in no acute distress. Currently sitting up in bed. He was having some issues with emesis earlier. Clear fluid returned. He has been on a bowel prep. He is currently maintaining O2 saturations in the high 90s on 4 L nasal cannula. His lung sounds are clear. No shortness of breath, cough or congestion. Sputum culture revealed no growth. Sodium 129. Potassium 4.0. BUN 66. Creatinine 1.40. He remains on Symbicort, DuoNeb inhalations. Oral diuretics. Prednisone taper. Plan is for EGD/colonoscopy today. Objective - Vital Signs Vital signs: Vital Signs Temp 97.4 F L 07/25/22 08:47 Pulse 71 07/25/22 08:47 Resp 17 07/25/22 08:47 BP 129/75 07/25/22 08:47 Pulse Ox 99 07/25/22 08:47 FiO2 35 07/17/22 11:06 Intake & Output 07/24/22 07/25/22 07/25/22 18:59 06:59 18:59 Intake Total 1500 Output Total 1100 Balance 1500 -1100 Weight 88 kg Intake: Oral 1500 Output: Urine 1100 Other: Voiding Method Indwelling Catheter Indwelling Catheter # Bowel Movements 4 - Exam Alert, 66-year-old male, no acute distress, currently on 4 L nasal cannula. HEENT examination is grossly unremarkable. Neck supple. Full range of motion. No adenopathy thyromegaly or neck vein distention. Cardiovascular examination reveals regular rhythm rate. S1-S2 normal. No S3 or S4. No discernible murmur noted. Heart sounds are distant. Lungs reveal no crackles, wheeze or rhonchi. Abdomen soft, without bowel sounds. No masses or tenderness. Extremities are intact. No cyanosis clubbing or edema. Skin is without rash or lesion.Examination of the skin revealed no evidence of significant rashes, suspicious appearing nevi or other concerning lesions. Neurologic examination Neurologically, the patient is awake and alert and the pa tient does not have any focal neurological deficit. Cranial nerves are essentially intact. - Labs CBC & Chem 7: 07/24/22 06:39 07/25/22 07:02 Labs: Abnormal Lab Results - Last 24 Hours (Table) 07/24/22 07/24/22 07/25/22 Range/Units 16:28 22:06 04:27 Sodium (137-145) mmol/L Chloride (98-107) mmol/L Carbon Dioxide (22-30) mmol/L BUN (9-20) mg/dL Creatinine (0.66-1.25) mg/dL POC Glucose (mg/dL) 114 H 140 H 59 L (70-110) mg/dL Calcium (8.4-10.2) mg/dL 07/25/22 07/25/22 07/25/22 Range/Units 05:04 06:11 07:00 Sodium (137-145) mmol/L Chloride (98-107) mmol/L Carbon Dioxide (22-30) mmol/L BUN (9-20) mg/dL Creatinine (0.66-1.25) mg/dL POC Glucose (mg/dL) 112 H 68 L 111 H (70-110) mg/dL Calcium (8.4-10.2) mg/dL 07/25/22 Range/Units 07:02 Sodium 129 L (137-145) mmol/L Chloride 97 L (98-107) mmol/L Carbon Dioxide 32 H (22-30) mmol/L BUN 66 H (9-20) mg/dL Creatinine 1.40 H (0.66-1.25) mg/dL POC Glucose (mg/dL) (70-110) mg/dL Calcium 6.2 L* (8.4-10.2) mg/dL Assessment and Plan Assessment: Acute hypoxemic respiratory failure secondary to COPD exacerbation and the patient presented with acute hypoxic and hypercapnic respiratory failure. Oxygenation has improved. Remains on 4 liters nasal cannula. Severe COPD and the patient has an FEV1 of 39% of predicted at baseline and this is based on spirometry that was done on 09/28/2020. The patient has been maintained on Advair and DuoNeb about treatments [id number].. Delirium, recovered Acute kidney injury and the creatinine is currently 1.4. GFR of 51 Acute tracheobronchitis. Recovered Supraventricular tachycardia/atrial fibrillation with RVR. Patient is currently on normal sinus rhythm. The patient is also on anticoagulation with Eliquis. The patient has a normal LV function History of laryngeal carcinoma, in remission, status post radiation treatment, diagnosed in 2017. Acute hypercapnic respiratory failure secondary to severe COPD. GI bleed with positive stool for occult blood, current hemoglobin 10.6. Plans for EGD/colonoscopy today 07/25/2022 Plan The patient was seen and evaluated Medications and labs reviewed Stable and on 4 L nasal cannula Titrate down the FiO2 as tolerated Continue a prednisone taper, Symbicort Plan is for EGD/colonoscopy today Home once cleared by medicine I have personally seen and examined the patient, performed the documentation and the assessment and plan as written. Number of minutes spent on the visit: 10.
[2022-07-25 11:49] LABS: HGB 11.7 gm/dL (13.0-17.5); MCH 30.3 pg (25.0-35.0); MCHC 34.5 g/dL (31.0-37.0); MCV 87.7 fL (80.0-100.0); Mean Platelet Volume 7.8; Platelet Count 148 k/uL (150-450); RBC 3.88 m/uL (4.30-5.90); RDW 12.2 % (11.5-15.5); WBC 9.4 k/uL (3.8-10.6)
[2022-07-25 11:54] LABS: Glucose,Whole Blood 67 mg/dL (70-110)
[2022-07-25] MEDS ORDERED: PROPOFOL 10 MG/ML 20 ML VIAL IV ONE (12:08)
[2022-07-25] MEDS ORDERED: LACTATED RINGERS 1,000 ML IV ONE (12:10)
--- NOTE | 2022-07-25 12:30 | P.OP ---
Date of Procedure: 07/25/22 Preoperative Diagnosis: GI bleed Postoperative Diagnosis: Duodenitis Antral gastritis Erosive esophagitis Diverticulosis Poor colon prep Procedure(s) Performed: EGD Colonoscopy Anesthesia: MAC Surgeon: David Jim Pathology: other (Duodenum, antrum, esophagus) Condition: stable Disposition: PACU Description of Procedure: Patient's placed on the endoscopy table in the lateral position. He received IV sedation. The gastroscope placed oropharynx passed in the esophagus into the stomach. Scope was then placed through the pylorus. The first and second portion of the duodenum showed evidence of duodenitis. A biopsies performed. There was no active bleeding seen. Scope summer back the antrum was minimal inflamed. A biopsies performed. The scope was then retroflexed the remainder the stomach appeared normal. The patient may have had a small hiatal hernia. The GE junction was at 38 cm. The lower third of the esophagus had evidence of erosive esophagitis. A biopsies performed. The proximal esophagus appeared normal. Scope withdrawn for patient. Next digital rectal exam was performed. There was a large amount liquid stool in the rectum. The flexible colonoscope was then placed patient anus and passed throughout the colon. The colon prep was very poor. The colonoscope was advanced to the right colon. Due to the poor prep the colonoscope could not be advanced further. The scope was withdrawn. The transverse colon appeared normal. The descending colon appeared normal. In the sigmoid colon there was some diverticular changes. Scope was then brought back the rectum this appeared normal. Scope withdrawn for patient. There is no evidence of any GI bleed in the colonoscopy. It's presumed the patient had bleeding from his erosive esophagitis.
[2022-07-25] MEDS ORDERED: LACTATED RINGERS 1,000 ML IV SCH (13:07)
[2022-07-25] MEDS: PANTOPRAZOLE 40 MG/10 ML VIAL IVP SCH (13:27)
[2022-07-25] MEDS ORDERED: IOPAMIDOL CONTRAST (ORAL USE) VIAL PO PRN (14:43)
--- NOTE | 2022-07-25 14:43 | P.PN ---
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 Patient tried breathing treatments at home without much relief. Patient was tachycardic on admission with heart rate in 160s and was found to be SVT patient was given Ellenson in the ER. Otherwise denied any complaints of chest pain. No nausea vomiting or abdominal pain. Denied any increased leg swelling. No fever no chills. No prior history of SVT. Chest x-ray showed COPD. No active cardiopulmonary disease. Mild pulmonary fibrotic changes. No significant change. CTA chest showed no evidence of PE. Emphysema and mild pulmonary fibrosis. No suspicious pulmonary mass. Laboratory data showed WBC 16.0 hemoglobin 16.0 and platelets 269 Sodium 139 potassium four-point 102 bicarb is 20 BUN 16 and creatinine 0.87 and lactic acid 2.7 Troponin x1 negative and proBNP is 378 TSH 0.49 6 Coronavirus and influenza AMB not detected. Urinalysis is negative for infection. 07/08/2022 Patient continues to be monitored in intensive care unit mostly on BiPAP support but able to be weaned to 3 to 4 L of oxygen via nasal cannula. He is unsure when he has had bowel movement and has limited to no bowel sounds for this reason abdominal xray has been performed showing mildly distended small bowel loops and some segments of colon as well. Consider generalized ileus and difficult to exclude the possibility of a distal colonic obstruction. White blood cell count today 6.1, sodium 144, potassium 4.6, BUN 40, creatinine 0.99, blood glucose 150, magnesium 2.4. Procalcitonin 0.55. Vitals today, patient is afebrile, heart rate 71, blood pressure 121/64, 95% oxygen saturation. Patient has been maintained on dexmedetomidine for acute anxiety which is currently paused. Continues on IV Solu-Medrol, and bronchodilators. Patient is currently on IV cardizem gtt for tachycardia and will be transitioned to oral verapamil today, cardiology is following. 07/09/2022 Patient continues to be monitored in intensive care unit. White count elevated up to 12.4 today he has expiratory wheezing on exam changed from yesterday. Patient requiring bipap at 35% FiO2 currently. He did have low grade fever this morning 99 and is receiving acetaminophen as needed. chest xray today showing chronic emphysema and pulmonary fibrotic change. Procalcitonin level elevated at 0.55. IV ceftriaxone increased to 2 gram every 24 hours. Patient is continued on bronchodilators. Continues on IV solumedrol 60 mg q6h. Dexmedetomidine possibly being weaned off today, seroquel and haldol ordered with ativan as needed. Patient continues with significant abdominal distention and absent bowel sounds left lower quadrant. Did not receive lactulose yesterday. General surgery was consulted for further evaluation, currently placed NPO for possible ileus /bowel obstruction. He is hypertensive today with systolic in the 180s has been started on verapamil TID and also hydralazine 50 BID. Cardiology following. 07/10/2022 Patient evaluated today on BiPAP, fio2 has been increased to 40%, he is using accessory muscles to breath and appears quite aggitated. He is on combination of haldol, seroquel for this. Additionally, he was started on nicotine patch and clonidine patch. NG tube has been placed, patient has not had a BM. Abdominal Pelvis CT completed showing no CT evidence for small bowel obstruction. Patient also had follow up chest xray today showing COPD changes and no acute disease. Never the less he appears to have some respiratory distress requiring BiPAP. white count 11.7 today, sodium 149, BUN 47, creatinine 1.05, blood glucose 170s. Patient has been placed on amiodarone infusion and also heparin gtt as patient is unable to take oral medications currently. He continues on antibiotics. Continues on IV solumedrol. 07/11/2022 Patient is monitored in intensive care unit. Continues with NG tube. Tube feedings have been resumed with vital AF 1.2 with goal of 55 mls per hour. Currrently running at 20 mLs/hour. Patient has free water flush 30 mL every 4 hours, would like to increase free water and discontinue IV fluids. Sodium level today 148, potassium 4.1, chloride 110, BUN 51, creatinine 1.08. Blood glucose in the 240s and insulin has been increased. Patient is receiving lactulose, had fleet enema today. Has not had a BM this admission, bowel sounds in all 4 quadrants today. Amiodarone has been discontinued. Continues on oral verapamil. Heart rate is improving. Patient trialed on airvo 60/60 today. Chest xray showing no focal consolidation. 07/12/2022 Patient is evaluated in ICU, family at bedside. Continues on Airvo 60/60, reports non productive cough. Diffuse weakness. Abdomen distended seems worse than yesterday. Discussed with surgery. Tube feedings have been placed on hold and patient started on daily suppositories. Otherwise continues on empiric ceftriaxone. Chest xray showing COPD with possible underlying pulmonary vascular congestion. Sodium up to 150 today, nephrology consulted. Patient has been started on D5% water at 75 mls per hour. BUN 55 creatinine 1.22 today. Blood glucose 230s. Heart rate 120s today, blood pressure 130/91, remains afebrile. 07/13/2022 Patient continue in Intensive Care unit. Continues on Airvo 60/60. He reports breathing improved today less short of breath. Lung sounds have improved and increased aeration. Less congested. No BM yet, has been started on dulcolax suppository daily. Increased bowel sounds today and abdomen is less distended. Remains on IV ceftriaxone. White count normalized to 9.9. Sodium remains at 150, BUN 51, creatinine 1.21. Blood glucose 200s. hgb A1c found to be 6.5 consistent with diagnosis of diabetes mellitus type 2. Continues on levemir with sliding scale and scheduled novolog coverage. Remains afebrile, heart rate 87, blood pressure 177/91, oxygen saturation 95%. IV steroids have been decreased today. Continues on oral cardizem, oral verapamil. Continues on D5 water at 75 mls per hour. 07/14/2022 Patient continues to be monitored closely in intensive care unit. He continues on Airvo 45/60, has tolerated weaning and continues to report improvement in work of breathing. No wheezing noted on exam today has some coarse scattered ronchi. NG tube remains in place, he did have BM. Will discuss with surgery if NG tube can be discontinued. Will add nystatin swish today which can be applied manually versus swishing. Patient remains diffusely weak has been on bedrest. No breakdown noted on skin. Continues on oral amiodarone, verapamil, anticoagulated with eliquis. Patient has been maintained on empiric antibiotic coverage with IV ceftriaxone, tomorrow will be day 5. white count has normalized consider discontinuing antibiotics tomorrow. Patient is maintaining sinus rhythm today heart rate 80s, blood pressure 159/78, 93% oxygen saturation, has remained afebrile. Labs today are improving, white count remains within normal limits at 10.4, sodium 142, potassium 4.5, chloride normalized to 104, BUN 48, creatinine 1.08. Blood glucose 160s to 200s. IV fluids have been changed to D5 1/2 NS at 50. Repeat labs tomorrow. Multiple consultations following. PT/OT has been consulted. 07/15/22. Patient seen and examined. Daughter at the bedside. Patient continues to be on heated high flow oxygen. States he feels better. Denies any nausea, vomiting. Case discussed with nursing staff 07/16/22. Patient seen and examined. Stated that he had a panic attack this morning, currently doing much better. Breathing is improving. Denies any chest pain. Continues to be on heated high flow 07/17/22. Patient seen and examined. Continues to be on heated high flow. Does not look any acute distress. 07/18/22. Patient seen and examined. Patient is transferred out of ICU. Currently on 4 L of oxygen. Gets short of breath on exertion. Otherwise patient is doing better compared to yesterday 07/19. Patient seen and examined. Continues to be on 4 L of oxygen. Creatinine has bumped up to 1.9. Gets short of breath on exertion. Patient is very weak 07/20. Patient seen and examined. Still gets short of breath on minimal exertion. Denies any chest pain. Not very keen to get out of the bed. Explained to him that he needs to get out of the bed 07/21. Patient seen and examined. Currently sitting in the chair. States he feels better compared to yesterday. Still complaining of productive cough 07/22/2022 Patient monitored sitting up in chair today. He continues on 4L nasal cannula. Hypotensive today blood pressures in the 80s systolic. 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 Verapamil has been placed on hold. Creatinine increased up to 2.08 today, most likely from acute hypotensive episode. He continues in sinus rhythm heart rate in the 70s. Potassium 5.7, sodium 132. Sputum culture pending. 07/23/2022 Patient sitting up in chair today. No acute events overnight. He does report some dizziness. Blood pressure on the lower side throughout the evening and he received a 500 mL fluid bolus. Started on midodrine yesterday as well. Blood pressure improved to 110s/50s. Continues on 4L nasal cannula. Surgery has been following for reports of maroon colored stools which patient reports have resolved, and he is scheduled to undergo EGD colonoscopy . Hgb 11.2. Creatinine improved to 1.8 today. He continues with indwelling catheter. 07/24/2022 Patient resting in bed today. Started goLytely prep for EGD/colonoscopy tomorrow. Reports worsening shortness of breath today. He has scattered wheezing today. Patient would benefit from lasix which nephrology has ordered an IV dose x 1 today, 40 mg and will start oral lasix 40 mg daily tomorrow. Hemoglobin remains stable at 10.6, sodium 130, BUN 77, creatinine 1.6 today. Blood glucose in the 70s, monitor closely. Decreased levemir and scheduled insulin. Continues with indwelling catheter. Blood pressure improved, 108/69. Continues on midodrine. 07/25/2022 Patient is seen in follow-up today with family at the bedside currently scheduled to undergo colonoscopy with EGD with general surgery today. Patient is currently maintained on 2-4 L of oxygen via nasal cannula and recommend wean FiO2 as tolerated. Nephrology following inpatient is maintained on Lasix that has been transitioned oral and increasing today to 40 mg twice daily and recommending repeat labs. Sodium on the lower side. Patient is currently nothing by mouth and will resume diet once done with endoscopy. Patient to continue with indwelling Greenfield catheter and also strongly recommend aspiration precautions along with continuing to monitor Accu-Cheks before meals and at bedtime. Patient is afebrile denies worsening shortness of breath or chest pain. Will await endoscopy report. Review of Systems Constitutional: Reports fatigue denied any fever. Cardio vascular: denied any chest pain, palpitations Gastrointestinal: denied any nausea, vomiting, diarrhea, maroon stools resolved. Pulmonary: Reports shortness of breath, no cough. Neurologic denied any new focal deficits All inpatient medications were reviewed and appropriate changes in these medications as dictated in the interval history and assessment and plan. Active Medications Albuterol/Ipratropium (Ipratropium-Albuterol 3 Ml Neb) 3 ml INHALATION RT-Q2H PRN PRN Reason: Shortness Of Breath Or Wheezing Last Admin: 07/17/22 03:32 Dose: 3 ml Albuterol/Ipratropium (Ipratropium-Albuterol 3 Ml Neb) 3 ml INHALATION RT-QID [facility] Last Admin: 07/25/22 11:32 Dose: 3 ml Alprazolam (Alprazolam 0.5 Mg Tab) 0.5 mg PO TID PRN PRN Reason: Anxiety Last Admin: 07/21/22 22:07 Dose: 0.5 mg Amiodarone HCl (Amiodarone 200 Mg Tab) 200 mg PO BID [facility] Last Admin: 07/25/22 08:17 Dose: 200 mg Atorvastatin Calcium (Atorvastatin 10 Mg Tab) 10 mg PO HS [facility] Last Admin: 07/24/22 22:09 Dose: 10 mg Benzocaine/Menthol (Benzocaine/Menthol Lozeng 1 Each Lozenge) 1 each MUCOUS MEM Q4HR PRN PRN Reason: Sore Throat Last Admin: 07/16/22 09:03 Dose: 1 each Bisacodyl (Bisacodyl 10 Mg Supp) 10 mg RECTAL DAILY [facility] Last Admin: 07/25/22 08:17 Dose: 10 mg Budesonide/Formoterol Fumarate (Symbicort 160-4.5 Mcg Inhaler) 2 puff INHALATION RT-BID [facility] Last Admin: 07/25/22 07:48 Dose: 2 puff Dextrose/Water (Dextrose 50% Syringe 50 Ml) 25 ml IVP PER PROTOCOL PRN; Protocol PRN Reason: Hypoglycemia Last Admin: 07/25/22 11:58 Dose: 25 ml Dextrose/Water (Dextrose 50% Syringe 50 Ml) 50 ml IVP PER PROTOCOL PRN; Protocol PRN Reason: Hypoglycemia Famotidine (Famotidine 20 Mg Tab) 20 mg PO DAILY [facility] Last Admin: 07/25/22 08:17 Dose: 20 mg Furosemide (Furosemide 40 Mg Tab) 40 mg PO DAILY [facility] Last Admin: 07/25/22 08:17 Dose: 40 mg Insulin Aspart (Insulin Aspart (Novolog) 100 Unit/Ml Vial) 0 unit SQ ACHS [facility]; Protocol Last Admin: 07/25/22 12:03 Dose: Not Given Insulin Aspart (Insulin Aspart (Novolog) 100 Unit/Ml Vial) 3 unit SQ ACHS [facility] Last Admin: 07/25/22 12:03 Dose: Not Given Insulin Detemir (Insulin Detemir (Levemir) 100 Unit/Ml Syr) 10 unit SQ BID@0700,2100 [facility] Last Admin: 07/25/22 06:21 Dose: Not Given Midodrine (Midodrine 5 Mg Tab) 5 mg PO AC-TID [facility] Last Admin: 07/25/22 12:03 Dose: Not Given Miscellaneous Information (Potassium Replacement Protocol 1 Each Misc) 1 each MISCELLANE DAILY PRN; Protocol PRN Reason: Per Protocol Naloxone HCl (Naloxone 0.4 Mg/Ml 1 Ml Vial) 0.2 mg IV Q2M PRN PRN Reason: Opioid Reversal Nystatin (Nystatin 100,000 Unit/Ml Susp 500,000 Unit/5 Ml Cup) 500,000 unit PO QID [facility]; Protocol Last Admin: 07/25/22 13:23 Dose: Not Given Pantoprazole Sodium (Pantoprazole 40 Mg/10 Ml Vial) 40 mg IVP DAILY [facility] Last Admin: 07/25/22 13:27 Dose: 40 mg Prednisone (Prednisone 10 Mg Tab) 30 mg PO DAILY [facility] Last Admin: 07/25/22 08:16 Dose: 30 mg Tamsulosin HCl (Tamsulosin 0.4 Mg Cap.Er.24h) 0.4 mg PO PC-BRKFST [facility] Last Admin: 07/25/22 08:17 Dose: 0.4 mg PHYSICAL EXAMINATION: GENERAL: The patient is alert and oriented x3. Well developed, well nourished. Fatigued, pale. Obese. HEENT: Pupils are round and equally reacting to light. EOMI. No scleral icterus. No conjunctival pallor. Normocephalic, atraumatic. No pharyngeal erythema. No thyromegaly. CARDIOVASCULAR: S1 and S2 muffled PULMONARY: Scattered wheezing, coarse lung sounds bilaterally. Faint bibasilar crackles. ABDOMEN: Soft, nontender, distended, normoactive bowel sounds. No palpable or ganomegaly. Round, obese. MUSCULOSKELETAL: No joint swelling or deformity. EXTREMITIES: No cyanosis, clubbing, or pedal edema. NEUROLOGICAL: Gross neurological examination did not reveal any focal deficits. Diffuse generalized weakness. SKIN: No rashes. Assessment: Acute COPD exacerbation and tracheobronchitis, improving Acute hypoxemic respiratory failure secondary to above, has been weaned off BiPAP/Airvo support and currently on 4L nasal cannula SVT/Atrial fibrillation with rapid rate converted to normal sinus rhythm Hypertension currently hypotensive, improving on midodrine. Ruled out GI bleed On EGD colonoscopy, most likely erosive esophagitis Hypernatremia, resolved currently hyponatremic Metabolic acidosis resolved Acute kidney injury, initially resolved, creatinine elevated from hypotension and component of urinary retention slightly improved 1.4 Urinary retention with indwelling greenfield catheter Diabetes Mellitus type 2 A1C 6.5. Ileus, resolved BPH Prior history of smoking History of throat cancer and vocal cord status post radiation 2016 GI prophylaxis DVT prophylaxis Full Code Plan: Continue oxygen supplementation, aggressive pulmonary hygieneAnd wean FiO2 as tolerated Patient with abdominal distention and some discomfort with bloating will obtain CT abdomen Short term amiodarone therapy for one month and then discontinue per cardiology Patient started on midodrine, verapamil on hold. Continue Flomax, indwelling catheter EGD/Colonoscopy scheduled for today and per report shows a poor bowel prep with no evidence of GI bleeding in the colonoscopy and most likely secondary to erosive esophagitis and biopsies were obtained Oral Lasix being increased to 40 mg twice daily per nephrology Repeat BMP/CBC in AM Continues on oral steroid taper Subacute rehab on discharge when medically stable Overall prognosis remains guarded. The impression and plan of care has been dictated by Tiffanie Kauffman, Nurse Practitioner as directed. Dr. Joe MD I have performed a history and examination and MDM of this patient, discussed the same with the dictator, and agree with the dictator's assessment and plan as written ,documented as a scribe. Based on total visit time, I have performed more than 50% of the visit. Objective - Vital Signs Vital signs: Vital Signs Temp 97.4 F L 07/25/22 08:47 Pulse 71 07/25/22 08:47 Resp 17 07/25/22 08:47 BP 129/75 07/25/22 08:47 Pulse Ox 99 07/25/22 08:47 FiO2 35 07/17/22 11:06 Intake & Output 07/24/22 07/25/22 07/25/22 18:59 06:59 18:59 Intake Total 1500 Output Total 1100 Balance 1500 -1100 Weight 88 kg Intake: Oral 1500 Output: Urine 1100 Other: Voiding Method Indwelling Catheter Indwelling Catheter # Bowel Movements 4 - Labs CBC & Chem 7: 07/25/22 11:03 07/25/22 07:02 Labs: Abnormal Lab Results - Last 24 Hours (Table) 07/24/22 07/24/22 07/24/22 Range/Units 06:39 06:39 10:44 RBC 3.63 L (4.40-5.60) X 10*6/uL Hgb 10.6 L (13.0-17.0) g/dL Hct 32.3 L (39.6-50.0) % Immature Gran # 0.05 H (0.00-0.04) X 10*3/uL Neutrophils # 8.22 H (1.80-7.70) X 10*3/uL Lymphocytes # 0.43 L (0.90-5.00) X 10*3/uL Eosinophils # 0.03 L (0.04-0.35) X 10*3/uL Sodium 130 L (135-145) mmol/L Chloride 95 L (96-109) mmol/L Carbon Dioxide (22-30) mmol/L Anion Gap 8.80 L (10.00-18.00) mmol/L BUN 77.0 H (9.0-27.0) mg/dL Creatinine 1.6 H (0.6-1.5) mg/dL Est GFR (CKD-EPI)AfAm 50.6 L (60.0-200.0) Est GFR (CKD-EPI)NonAf 43.6 L (60.0-200.0) BUN/Creatinine Ratio 48.13 H (12.00-20.00) Ratio POC Glucose (mg/dL) 69 L (70-110) mg/dL Calcium 6.6 L (8.7-10.3) mg/dL 07/24/22 07/24/22 07/24/22 Range/Units 11:18 16:28 22:06 RBC (4.40-5.60) X 10*6/uL Hgb (13.0-17.0) g/dL Hct (39.6-50.0) % Immature Gran # (0.00-0.04) X 10*3/uL Neutrophils # (1.80-7.70) X 10*3/uL Lymphocytes # (0.90-5.00) X 10*3/uL Eosinophils # (0.04-0.35) X 10*3/uL Sodium (135-145) mmol/L Chloride (96-109) mmol/L Carbon Dioxide (22-30) mmol/L Anion Gap (10.00-18.00) mmol/L BUN (9.0-27.0) mg/dL Creatinine (0.6-1.5) mg/dL Est GFR (CKD-EPI)AfAm (60.0-200.0) Est GFR (CKD-EPI)NonAf (60.0-200.0) BUN/Creatinine Ratio (12.00-.00) Ratio POC Glucose (mg/dL) 68 L 114 H 140 H (70-110) mg/dL Calcium (8.7-10.3) mg/dL 07/25/22 07/25/22 07/25/22 Range/Units 04:27 05:04 06:11 RBC (4.40-5.60) X 10*6/uL Hgb (13.0-17.0) g/dL Hct (39.6-50.0) % Immature Gran # (0.00-0.04) X 10*3/uL Neutrophils # (1.80-7.70) X 10*3/uL Lymphocytes # (0.90-5.00) X 10*3/uL Eosinophils # (0.04-0.35) X 10*3/uL Sodium (135-145) mmol/L Chloride (96-109) mmol/L Carbon Dioxide (22-30) mmol/L Anion Gap (10.00-18.00) mmol/L BUN (9.0-27.0) mg/dL Creatinine (0.6-1.5) mg/dL Est GFR (CKD-EPI)AfAm (60.0-200.0) Est GFR (CKD-EPI)NonAf (60.0-200.0) BUN/Creatinine Ratio (12.00-.00) Ratio POC Glucose (mg/dL) 59 L 112 H 68 L (70-110) mg/dL Calcium (8.7-10.3) mg/dL 07/25/22 07/25/22 Range/Units 07:00 07:02 RBC (4.40-5.60) X 10*6/uL Hgb (13.0-17.0) g/dL Hct (39.6-50.0) % Immature Gran # (0.00-0.04) X 10*3/uL Neutrophils # (1.80-7.70) X 10*3/uL Lymphocytes # (0.90-5.00) X 10*3/uL Eosinophils # (0.04-0.35) X 10*3/uL Sodium 129 L (135-145) mmol/L Chloride 97 L (96-109) mmol/L Carbon Dioxide 32 H (22-30) mmol/L Anion Gap (10.00-18.00) mmol/L BUN 66 H (9.0-27.0) mg/dL Creatinine 1.40 H (0.6-1.5) mg/dL Est GFR (CKD-EPI)AfAm (60.0-200.0) Est GFR (CKD-EPI)NonAf (60.0-200.0) BUN/Creatinine Ratio (12.00-20.00) Ratio POC Glucose (mg/dL) 111 H (70-110) mg/dL Calcium 6.2 L* (8.7-10.3) mg/dL
[2022-07-25 16:47] LABS: Glucose,Whole Blood 168 mg/dL (70-110)
[2022-07-25 20:30] LABS: Glucose,Whole Blood 42 mg/dL (70-110)
[2022-07-25 20:43] LABS: Glucose,Whole Blood 42 mg/dL (70-110)
[2022-07-25 21:07] LABS: Glucose,Whole Blood 192 mg/dL (70-110)
[2022-07-25] MEDS: ATORVASTATIN 10 MG TAB PO SCH (21:07)
[2022-07-25 23:48] LABS: Glucose,Whole Blood 218 mg/dL (70-110)
[2022-07-26 02:17] LABS: Glucose,Whole Blood 196 mg/dL (70-110)
[2022-07-26 06:12] LABS: Glucose,Whole Blood 174 mg/dL (70-110)
[2022-07-26] MEDS: INSULIN ASPART (NovoLOG) 100 UNIT/ML VIAL SQ SCH ×8 (07:08→22:06)
[2022-07-26] MEDS: MIDODRINE 5 MG TAB PO SCH ×3 (07:21→17:15)
[2022-07-26] MEDS: AMIODARONE 200 MG TAB PO SCH ×2 (07:54→22:12)
[2022-07-26] MEDS: INSULIN DETEMIR (LEVEMIR) 100 UNIT/ML SYR SQ SCH ×2 (07:54→22:06)
[2022-07-26] MEDS: predniSONE 10 MG TAB PO SCH (07:54)
[2022-07-26] MEDS: FUROSEMIDE 40 MG TAB PO SCH ×2 (07:55→17:15)
[2022-07-26] MEDS: NYSTATIN 100,000 UNIT/ML SUSP 500,000 UNIT/5 ML CUP PO SCH ×4 (07:55→22:12)
[2022-07-26] MEDS: FAMOTIDINE 20 MG TAB PO SCH (07:55)
[2022-07-26] MEDS: TAMSULOSIN 0.4 MG CAP.ER.24H PO SCH (07:55)
[2022-07-26] MEDS: bisacodyL 10 MG SUPP RECTAL SCH (07:55)
[2022-07-26] MEDS: IOPAMIDOL CONTRAST (ORAL USE) VIAL PO PRN ×2 (08:01→09:07)
[2022-07-26 08:32] LABS: Basophils % (A) 0 %; Eosinophils % (A) 1 %; HCT 30.8 % (39.0-53.0); HGB 10.5 gm/dL (13.0-17.5); Lymphocytes # (A) 0.4 k/uL (1.0-4.8); Lymphocytes % (A) 6 %; MCH 30.1 pg (25.0-35.0); MCHC 33.9 g/dL (31.0-37.0); MCV 88.7 fL (80.0-100.0); Mean Platelet Volume 7.6; Monocytes # (A) 0.1 k/uL (0-1.0); Monocytes % (A) 2 %; Neutrophils # (A) 5.2 k/uL (1.3-7.7); Neutrophils % (A) 91 %; Platelet Count 129 k/uL (150-450); RBC 3.47 m/uL (4.30-5.90); RDW 12.2 % (11.5-15.5); WBC 5.8 k/uL (3.8-10.6)
[2022-07-26 08:52] LABS: African American GFR (CKD) 71 (>60 ml/min/1.73 sqM); Anion Gap 2 mmol/L; Blood Urea Nitrogen 41 mg/dL (9-20); Carbon Dioxide 30 mmol/L (22-30); Chloride 95 mmol/L (98-107); Glucose 161 mg/dL (74-99); Non-African American GFR(CKD) 61 (>60 ml/min/1.73 sqM); Potassium 3.7 mmol/L (3.5-5.1); Sodium 127 mmol/L (137-145)
[2022-07-26 08:57] LABS: Calcium 6.3 mg/dL (8.4-10.2)
[2022-07-26] MEDS: PANTOPRAZOLE 40 MG/10 ML VIAL IVP SCH (09:06)
[2022-07-26 09:22] LABS: Glucose,Whole Blood 230 mg/dL (70-110)
--- NOTE | 2022-07-26 11:32 | CT ---
EXAMINATION TYPE: CT abdomen pelvis wo con DATE OF EXAM: 07/26/2022 COMPARISON: 07/10/2022 HISTORY: 66-year-old male Abdominal distention. Recent colonoscopy. CT DLP: 763.1 mGycm. Automated exposure control for dose reduction was used. TECHNIQUE: Contiguous axial scanning of the abdomen and pelvis without IV contrast. Coronal and sagit pricilla reconstructions performed. FINDINGS: Heart normal size with small to moderate anterior pericardial effusion measuring 1.1 cm thick, new fr om prior. There are new trace to small bilateral pleural effusions with prominent adjacent atelectasis. Tiny hiatal hernia. Some minimal oral contrast material in the distal esophagus could reflect some ga stroesophageal reflux. There is trace perihepatic ascites. Some haziness about the pancreatic head region is noted. It may r elate to some mild mesenteric edema. There are new generalized anasarca changes noted. Otherwise, noncontrast appearance of the liver, adrenal glands, kidneys, and spleen show no gross abn ormality. High-density fluid within the gallbladder suggests vicarious excretion of previously administered IV contrast versus dense sludge and should be correlated clinically with patient's kidney function. No a bnormal gallbladder distention. No dilated small bowel or free air. Normal appendix. Cecal distention up to 10.0 cm. Prominent liquid and solid stool at the mid ascendin g colon. Subsequent to this, we see the transverse colon also dilated up to 6.3 cm. Contiguous distention of the distal ileum up to 3.5 cm lesser degree of air within the left side of t he colon and sigmoid colon. Scattered mid to distal sigmoid diverticulosis. Mild wall thickening here may relate to nondistention. Some liquid stool seems to be present near the distal colon. No pericol onic inflammatory change. No discrete transition point. No abdominal or pelvic lymphadenopathy seen. A Rojas catheter is in place. Prostate gland mildly enlarged at 5.1 cm wide. Prominent nondependent a ir within the lumen of the bladder likely due to instrumentation. Trace pelvic ascites. Bones: Facet arthropathy mid to lower lumbar spine. IMPRESSION: 1. Generalized anasarca change. Trace to small bilateral pleural effusions with adjacent atelectasis . Trace to small abdominal ascites fluid as well. New small to moderate anterior pericardial effusion . Correlate for fluid overload state/third spacing. 2. Cecal dilatation of the 10.0 cm. Note that prolonged dilatation places the cecum at risk for perf oration. There is contiguous air distention of the distal ileum up to 3.5 cm and the ascending and tr ansverse colon up to 6.3 cm. No discrete transition point identified to clearly indicate an obstructi on. 3. Prominent fluid-filled small bowel loops could reflect generalized ileus or enteritis. 4. Some haziness about the pancreatic head region may reflect mild mesenteric edema related to fluid overload. Correlate with amylase and lipase levels to exclude mild acute pancreatitis. 5. High density material/contrast within the gallbladder lumen suggesting vicarious excretion of pre viously administered contrast through the biliary system. Correlate with BUN/creatinine to exclude AK I.
[2022-07-26 11:36] LABS: Glucose,Whole Blood 221 mg/dL (70-110)
[2022-07-26] MEDS: CALCIUM CARBONATE 500 MG CHEWABLE PO SCH ×3 (11:53→22:12)
[2022-07-26] MEDS ORDERED: TOLVAPTAN 15 MG 1/2 TABLET PO ONE (12:00)
[2022-07-26] MEDS: SYMBICORT 160-4.5 MCG INHALER INHALATION SCH ×2 (12:58→21:17)
[2022-07-26] MEDS: IPRATROPIUM-ALBUTEROL 3 ML NEB INHALATION SCH ×4 (12:58→21:17)
--- NOTE | 2022-07-26 13:56 | P.PN ---
Subjective Progress Note Date: 07/26/22 CHIEF COMPLAINT: Ileus in HISTORY OF PRESENT ILLNESS: Patient admitted to the hospital with shortness of breath evidence of COPD exacerbation, bronchitis and SVT. Surgical service initially consulted regarding an abdominal ileus. The ileus resolved. Surgical service had been re-consulted in regards to GIB. Patient is status post EGD and colonoscopy results demonstrated duodenitis, antral gastritis, erosive esophagitis and diverticulosis. He did have a poor prep. It is presumed patient's bleeding was from his erosive esophagitis. He has been started on IV Protonix. Medicine service did order a computed tomography scan of the abdomen and pelvis due to abdominal distention. Patient denies any abdominal pain. Denies any nausea or vomiting. He is currently nothing by mouth. Afebrile. WB C is 5.8 Hgb 10.5 platelets 129 sodium is 127 potassium is 3.7 creatinine 1.21 computed tomography scan abdomen and pelvis shows generalized anasarca change. Trace to small bilateral pleural effusions with atelectasis. Trace to small ascites. New small to moderate anterior pericardial effusion. Correlate for fluid overload state and third spacing. Cecal dilatation of 10 cm. Note that prolong dilatation places the cecum at risk for perforation. There is air distention of the distal ileum up to 3.5 cm and ascending and transverse colon up to 6.3 cm. No discrete transition point identified to clearly indicate bowel obstruction. Prominent fluid-filled small bowel loops could reflect generalized ileus or enteritis. Some haziness about the pancreatic head region may reflect mild mesenteric edema related to fluid overload. Correlate with amylase and lipase to exclude mild pancreatitis. High density material/contrast within the gallbladder lumen suggesting for carious excretion of previously administered conscious to the biliary system. Patient seen and examined with Dr. Jim PHYSICAL EXAM: VITAL SIGNS: Reviewed. GENERAL: Well-developed in no acute distress. ABDOMEN: Soft. distended. Nontender NEUROLOGIC: Awake and alert ASSESSMENT: 1. GI bleed resolved. Likely due to erosive esophagitis 2. Cecal dilatation of 10 cm with distention in the distal ileum up to the ascending and transverse colon 2. Ileus resolved 2. Acute COPD exacerbation with acute hypoxic respiratory failure 3. SVT and AFIB PLAN: -Computed tomography scan findings and physical exam findings reviewed with Dr. Jim. He recommends to keep patient nothing by mouth -Encouraged patient to increase activity level -Continue PPI Physician Truck Trailer Final Inspector note has been reviewed by physician. Signing provider agrees with the documented findings, assessment, and plan of care. Objective - Vital Signs Vital signs: Vital Signs Temp 97.8 F 07/26/22 08:00 Pulse 74 07/26/22 08:00 Resp 16 07/26/22 08:00 BP 120/70 07/26/22 08:00 Pulse Ox 94 L 07/26/22 08:00 FiO2 35 07/17/22 11:06 Intake & Output 07/25/22 07/26/22 07/26/22 18:59 06:59 18:59 Intake Total 100 Output Total 300 2100 Balance -200 -2100 Weight 83.5 kg Intake: IV 100 Output: Urine 300 2100 Other: Voiding Method Indwelling Catheter Indwelling Catheter - Labs CBC & Chem 7: 07/26/22 07:33 07/26/22 07:33 Labs: Abnormal Lab Results - Last 24 Hours (Table) 07/25/22 07/25/22 07/25/22 Range/Units 16:46 20:21 20:41 RBC (4.30-5.90) m/uL Hgb (13.0-17.5) gm/dL Hct (39.0-53.0) % Plt Count (150-450) k/uL Lymphocytes # (1.0-4.8) k/uL Sodium (137-145) mmol/L Chloride (98-107) mmol/L BUN (9-20) mg/dL Glucose (74-99) mg/dL POC Glucose (mg/dL) 168 H 42 L 42 L (70-110) mg/dL Calcium (8.4-10.2) mg/dL 07/25/22 07/25/22 07/26/22 Range/Units 21:05 23:47 02:16 RBC (4.30-5.90) m/uL Hgb (13.0-17.5) gm/dL Hct (39.0-53.0) % Plt Count (150-450) k/uL Lymphocytes # (1.0-4.8) k/uL Sodium (137-145) mmol/L Chloride (98-107) mmol/L BUN (9-20) mg/dL Glucose (74-99) mg/dL POC Glucose (mg/dL) 192 H 218 H 196 H (70-110) mg/dL Calcium (8.4-10.2) mg/dL 07/26/22 07/26/22 07/26/22 Range/Units 06:11 07:33 07:33 RBC 3.47 L (4.30-5.90) m/uL Hgb 10.5 L (13.0-17.5) gm/dL Hct 30.8 L (39.0-53.0) % Plt Count 129 L (150-450) k/uL Lymphocytes # 0.4 L (1.0-4.8) k/uL Sodium 127 L (137-145) mmol/L Chloride 95 L (98-107) mmol/L BUN 41 H (9-20) mg/dL Glucose 161 H (74-99) mg/dL POC Glucose (mg/dL) 174 H (70-110) mg/dL Calcium 6.3 L* (8.4-10.2) mg/dL 07/26/22 07/26/22 Range/Units 09:21 11:34 RBC (4.30-5.90) m/uL Hgb (13.0-17.5) gm/dL Hct (39.0-53.0) % Plt Count (150-450) k/uL Lymphocytes # (1.0-4.8) k/uL Sodium (137-145) mmol/L Chloride (98-107) mmol/L BUN (9-20) mg/dL Glucose (74-99) mg/dL POC Glucose (mg/dL) 230 H 221 H (70-110) mg/dL Calcium (8.4-10.2) mg/dL
--- NOTE | 2022-07-26 14:32 | P.PN ---
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 The patient is currently being seen in the intensive care unit for alcohol withdrawal was and hypoxic respiratory failure. This morning, is awake and alert and there is no significant agitation. He remains on high flow oxygen at 45 L with an FiO2 of 56%. His current pulse ox is around 89%. Note that he had a CT angiogram at time of admission that showed no evidence of any pulmonary embolism. It showed emphysema and mild portal fibrosis. His resting comfortably in bed. He has no significant shortness of breath at rest. The same time, the patient has been in normal sinus rhythm. Noted at the time of admission, he was in atrial fibrillation and he was treated with a Cardizem drip and currently is off the drip. He is also off Precedex for now. Neurologically, he is alert and oriented 3. His most recent chest x-ray from yesterday showing some atelec tatic changes in the lung bases and emphysema. Otherwise no other major abnormalities are noted. In terms of treatment, the patient is currently on DuoNeb about treatments [id number], he is on Pulmicort Respules 1 mg twice a day, he is on IV Solu-Medrol 40 mg every 6 hours. Is also on performance 1 nevertheless treatment twice a day. He is covered with antibiotics and the patient is receiving Rocephin 2 g every 24 hours. His blood cultures from this admission is negative. The white cell count is at 12 with a hemoglobin of 14.7 and a platelet count of 188. BUN is 44 with a creatinine of 1.1 and sodium levels of 137. In terms of his viral screen, the patient had a negative Covid 19 infection. Influenza screen was negative at the time of admission. On today's evaluation of 07/16/2022, the patient remains on high flow oxygen at 45 L with an FiO2 of 50%. The patient is feeling better and less short of breath compared to yesterday. No significant cough or sputum production. The patient was offered an incentive spirometer and the patient is able to generate adequate volumes on the incentive spirometer, nevertheless, the values remain less than 500 mL. The patient is on IV Rocephin. The patient was growing Haemophilus influenza in his sputum. At the same time, the patient remains on bronchodilators and he is on DuoNeb neb blotchiness 4 times a day, he is on a combination of Perforomist and Pulmicort neb less treatments twice a day and IV Solu-Medrol and the doses 40 mg IV every 6 hours. He was started on diuretics and to dose of Lasix will be given to him today. In terms of his blood work, his sodium level is at 137 with a potassium level of 4.4, BUN of 44 with a creatinine of 1.05 with RBC count of 12 a hemoglobin 14.8 and a platelet count of 148. LFTs are essentially within normal limits. On today's evaluation of 07/17/2022, the patient has no specific complaints. The patient is gradually improving. This morning, the patient was weaned down to 40 liters with an FiO2 of 35% high flow oxygen. The patient is otherwise doing well. He is using the incentive spirometer. He is still coughing and his cough is congested. Unable to bring up much sputum. He was diuresis yesterday and he has been negative fluid balance for now. BUN is a 53 with a creatinine of 1.29 his sodium levels is 135. The patient's WBC count is at 16.4 with a hemoglobin of 14.5. Remains on DuoNeb about treatments [id number]. Remains on IV Solu-Medrol. No altered mentation. No chest pain. Remains quite weak and his been having generalized global weakness. He is on Levemir 14 units daily twice a day and the patient is on NovoLog 40 units with meals and a sliding scale coverage. No altered mentation. No other new complaints. 07/18/2022, patient is doing well. The patient has been taken off the high flow oxygen the patient is currently on 4 L of O2 nasal cannula. No new complaints. IV Solu-Medrol was then tapered down to 20 mg every 8 hours. Limited cough. No significant congestion. So bronchospastic and wheezy. Air entry is quite limited in the lung bases bilaterally. He has advanced COPD.Transferred out of the intensive care unit yesterday. He is using the incentive spirometer. On his blood work, the patient has a white cell count of 8.9 with a hemoglobin of 12.4 count of 264. The patient has a BUN of 17 with a creatinine of 0.6 and his sodium level is 145. LFTs are normal. On 07/19/2022, I'm seeing the patient for a follow-up. The patient is currently on 4 L of oxygen by nasal cannula. No new complaints. He remains on IV Solu- Medrol 40 mg every 6 hours. He remains on DuoNeb about treatments on the clock. He is still very weak and he may need rehabilitation. He was transferred out of the intensive care unit few days back. echoes at 70 with a hemoglobin of 15.3 and a platelet count of 202. BUN is at 80 with a creatinine of 1.9 and there is a slight rise in the creatinine compared to yesterday's blood work. This is probably related to diuresis. 07/20/2022, the patient is still on 4 L of Oxymizer nasal cannula. Overall respiratory status is stable. Nevertheless, the patient was having some issues with obstructive uropathy. The mortar mixer operator was consulted. The patient is having frequent bladder scans. Flomax was also added to the regimen at a dose of 0.4 mg on a daily basis. The patient's creatinine currently is at 1.9 and the BUN is 89 with a sodium level of 133. Diuretics were held. echoes at 60 with a hemoglobin 12.7. Potassium is at 4.8. LFTs are normal. The patient remains on DuoNeb about treatments [id number]. The patient remains on IV Solu-Medrol at a dose of 40 mg every 6 hours. No diuretics for now. 07/21/2022, the patient remains on 4 L of O2 nasal cannula. He was able to sit up on a recliner for next 10. Time yesterday. He stated a Rojas catheter in place. Creatinine is being monitored. he remains on DuoNeb neb on the clock is also on IV Solu-Medrol was tapered down to 40 mg every 6 hours. The patient started developing some colored mucus and for that reason, another sputum analysis will be done today. His tolerating diet. His oral intake is gradually improving. He is quite weak and debilitated. He may need an ECF placement at a later stage. No other new complaints for now. Family is at the bedside. I lengthy discussion with the patient's family The blood work from today shows a white cell count of 12.4 with a hemoglobin of 11.8. Sodium is at 131, BUN is 97 with a creatinine of 1.85 and the rest of the liver function tests are essentially within normal limits. The patient is seen today 07/22/2022 in follow-up on the regular medical floor. He is currently sitting up in a chair at the bedside. Awake and alert in no acu te distress. Maintaining O2 saturations in the 90s on 4 L/m per nasal cannula. Blood cultures revealed no growth. Sputum culture pending. White count 13.7. Hemoglobin 12.6. Sodium 132. Potassium 5.7. Bicarb 28. BUN 105. Creatinine 2.08. Glucose 139. He is continued on DuoNeb inhalations, Pulmicort and Perforomist inhalations, prednisone taper. The patient is seen today 07/23/2022 in follow-up on the regular medical floor. He is awake and alert in no acute distress. Sitting up in a chair at the bedside. Maintaining O2 saturations in the 90s on 4 L/m per nasal cannula. Blood and sputum cultures revealed no growth. White count 11.8. Hemoglobin 11.2. Sodium 129. Potassium 4.7. BUN 103. Creatinine 1.86. Glucose 77. Remains on DuoNeb inhalations, Pulmicort and Perforomist inhalations, prednisone taper. The patient's stool was positive for occult blood. The plan is for EGD/colonoscopy on 07/25/2022. Currently on a clear liquid diet. The patient is seen today 07/24/2022 in follow-up on the regular medical floor. Currently sitting up in a chair at the bedside. Awake and alert in no acute distress. He is maintaining good O2 saturations in the 90s on 4 L/m per nasal cannula. No worsening shortness of breath, cough or congestion. White count 8.9. Hemoglobin 10.6. Sodium 130. Potassium 4.8. BUN 77. Creatinine 1.6. Glucose 70. He received Lasix 40 mg IVP 1 today. Currently in a negative balance. Remains on DuoNeb inhalations, Pulmicort and Perforomist inhalations, prednisone taper. He is awaiting a EGD/colonoscopy tomorrow. The patient is seen today 07/25/2022 in follow-up on the regular medical floor. He is awake and alert in no acute distress. Currently sitting up in bed. He was having some issues with emesis earlier. Clear fluid returned. He has been on a bowel prep. He is currently maintaining O2 saturations in the high 90s on 4 L nasal cannula. His lung sounds are clear. No shortness of breath, cough or congestion. Sputum culture revealed no growth. Sodium 129. Potassium 4.0. BUN 66. Creatinine 1.40. He remains on Symbicort, DuoNeb inhalations. Oral diuretics. Prednisone taper. Plan is for EGD/colonoscopy today. The patient is seen today 07/26/2022 in follow-up on the regular medical floor. Currently sitting up in a chair at the bedside. Eating lunch. He did undergo EGD and partial colonoscopy. Not completed due to poor prep. He was found to have duodenitis, antral gastritis, erosive esophagitis, diverticulosis. No active bleeding noted. Computed tomography scan of the abdomen today revealed g eneralized anasarca. Trace to small bilateral effusions with adjacent atelectasis. Trace to small abdominal ascites. Small to moderate anterior pericardial effusion. Cecal dilatation of 10.0 cm. There is contiguous air distention of the distal ileum up to 3.5 cm in the ascending and transverse colon up to 6.3 cm. Blood cultures revealed no growth. Sputum culture revealed no growth. White count 5.8. Hemoglobin 10.5. Platelets 129. Sodium 127. Potassium 3.7. BUN 41. Creatinine 1.21. Glucose 161. He remains on DuoNeb inhalations, Symbicort, prednisone taper. Oral diuretics. Objective - Vital Signs Vital signs: Vital Signs Temp 97.8 F 07/26/22 08:00 Pulse 76 07/26/22 13:10 Resp 16 07/26/22 08:00 BP 120/70 07/26/22 08:00 Pulse Ox 94 L 07/26/22 08:00 FiO2 35 07/17/22 11:06 Intake & Output 07/25/22 07/26/22 07/26/22 18:59 06:59 18:59 Intake Total 100 Output Total 300 2100 Balance -200 -2100 Weight 83.5 kg Intake: IV 100 Output: Urine 300 2100 Other: Voiding Method Indwelling Catheter Indwelling Catheter - Exam Alert, 66-year-old male, obese, up in a chair, no acute distress, currently on 2 L nasal cannula. HEENT examination is grossly unremarkable. Neck supple. Full range of motion. No adenopathy thyromegaly or neck vein distention. Cardiovascular examination reveals regular rhythm rate. S1-S2 normal. No S3 or S4. No discernible murmur noted. Heart sounds are distant. Lungs reveal no crackles, wheeze or rhonchi. Abdomen soft, positive bowel sounds. No masses or tenderness. Extremities are intact. No cyanosis clubbing or edema. Skin is without rash or lesion.Examination of the skin revealed no evidence of significant rashes, suspicious appearing nevi or other concerning lesions. Neurologic examination Neurologically, the patient is awake and alert and the patient does not have any focal neurological deficit. Cranial nerves are essentially intact. - Labs CBC & Chem 7: 07/26/22 07:33 07/26/22 07:33 Labs: Abnormal Lab Results - Last 24 Hours (Table) 07/25/22 07/25/22 07/25/22 Range/Units 16:46 20:21 20:41 RBC (4.30-5.90) m/uL Hgb (13.0-17.5) gm/dL Hct (39.0-53.0) % Plt Count (150-450) k/uL Lymphocytes # (1.0-4.8) k/uL Sodium (137-145) mmol/L Chloride (98-107) mmol/L BUN (9-20) mg/dL Glucose (74-99) mg/dL POC Glucose (mg/dL) 168 H 42 L 42 L (70-110) mg/dL Calcium (8.4-10.2) mg/dL 07/25/22 07/25/22 07/26/22 Range/Units 21:05 23:47 02:16 RBC (4.30-5.90) m/uL Hgb (13.0-17.5) gm/dL Hct (39.0-53.0) % Plt Count (150-450) k/uL Lymphocytes # (1.0-4.8) k/uL Sodium (137-145) mmol/L Chloride (98-107) mmol/L BUN (9-20) mg/dL Glucose (74-99) mg/dL POC Glucose (mg/dL) 192 H 218 H 196 H (70-110) mg/dL Calcium (8.4-10.2) mg/dL 07/26/22 07/26/22 07/26/22 Range/Units 06:11 07:33 07:33 RBC 3.47 L (4.30-5.90) m/uL Hgb 10.5 L (13.0-17.5) gm/dL Hct 30.8 L (39.0-53.0) % Plt Count 129 L (150-450) k/uL Lymphocytes # 0.4 L (1.0-4.8) k/uL Sodium 127 L (137-145) mmol/L Chloride 95 L (98-107) mmol/L BUN 41 H (9-20) mg/dL Glucose 161 H (74-99) mg/dL POC Glucose (mg/dL) 174 H (70-110) mg/dL Calcium 6.3 L* (8.4-10.2) mg/dL 07/26/22 07/26/22 Range/Units 09:21 11:34 RBC (4.30-5.90) m/uL Hgb (13.0-17.5) gm/dL Hct (39.0-53.0) % Plt Count (150-450) k/uL Lymphocytes # (1.0-4.8) k/uL Sodium (137-145) mmol/L Chloride (98-107) mmol/L BUN (9-20) mg/dL Glucose (74-99) mg/dL POC Glucose (mg/dL) 230 H 221 H (70-110) mg/dL Calcium (8.4-10.2) mg/dL Assessment and Plan Assessment: Acute hypoxemic respiratory failure secondary to COPD exacerbation and the patient presented with acute hypoxic and hypercapnic respiratory failure. Oxyg enation has improved. Remains on 2 liters nasal cannula. Severe COPD and the patient has an FEV1 of 39% of predicted at baseline and this is based on spirometry that was done on 09/28/2020. The patient has been maintained on Advair and DuoNeb about treatments [id number].. Delirium, recovered Acute kidney injury and the creatinine is currently 1.4. GFR of 51 Acute tracheobronchitis. Recovered Supraventricular tachycardia/atrial fibrillation with RVR. Patient is currently on normal sinus rhythm. The patient is also on anticoagulation with Eliquis. The patient has a normal LV function History of laryngeal carcinoma, in remission, status post radiation treatment, diagnosed in 2017. Acute hypercapnic respiratory failure secondary to severe COPD. GI bleed with positive stool for occult blood, current hemoglobin 10.6. Plans for EGD/colonoscopy revealed duodenitis, antral gastritis, erosive esophagitis, diverticulosis. No active bleeding. Cecal dilatation of 10 cm with distention in the distal ileum to the ascending and transverse colon Plan The patient was seen and evaluated Medications and labs reviewed Stable and on 2 L nasal cannula Continue a prednisone taper, Symbicort We will continue to follow I have personally seen and examined the patient, performed the documentation and the assessment and plan as written. Number of minutes spent on the visit: 10.
[2022-07-26 16:39] LABS: Glucose,Whole Blood 64 mg/dL (70-110)
--- NOTE | 2022-07-26 16:43 | P.PN ---
Subjective Patient is seen for follow-up for acute kidney injury Patient was noted to have significant urine retention and currently has an indwelling Rojas catheter. Systolic blood pressure was on the lower side around 91-85 mmHg. Improved with midodrine. 1200 mL of urine noted on 24-hour output Serum creatinine 1.2 today. Status post IV Lasix and started on on oral Lasix 40 mg daily. Sitting on a bedside chair. No significant complaints today. Objective - Vital Signs Vital signs: Vital Signs Temp 97.8 F 07/26/22 08:00 Pulse 76 07/26/22 13:10 Resp 16 07/26/22 08:00 BP 120/70 07/26/22 08:00 Pulse Ox 94 L 07/26/22 08:00 FiO2 35 07/17/22 11:06 Intake & Output 07/25/22 07/26/22 07/26/22 18:59 06:59 18:59 Intake Total 100 Output Total 300 2100 Balance -200 -2100 Weight 83.5 kg Intake: IV 100 Output: Urine 300 2100 Other: Voiding Method Indwelling Catheter Indwelling Catheter Indwelling Catheter - Exam Awake, comfortable, no acute distress Examination of the heart S1 and S2 Examination lungs decreased breath sounds at the bases Abdomen is soft nontender Examination lower extremity shows edema 2+ bilaterally SUPPORT ARCHITECT exam grossly intact - Labs CBC & Chem 7: 07/26/22 07:33 07/26/22 07:33 Labs: Abnormal Lab Results - Last 24 Hours (Table) 07/25/22 07/25/22 07/25/22 Range/Units 16:46 20:21 20:41 RBC (4.30-5.90) m/uL Hgb (13.0-17.5) gm/dL Hct (39.0-53.0) % Plt Count (150-450) k/uL Lymphocytes # (1.0-4.8) k/uL Sodium (137-145) mmol/L Chloride (98-107) mmol/L BUN (9-20) mg/dL Glucose (74-99) mg/dL POC Glucose (mg/dL) 168 H 42 L 42 L (70-110) mg/dL Calcium (8.4-10.2) mg/dL 07/25/22 07/25/22 07/26/22 Range/Units 21:05 23:47 02:16 RBC (4.30-5.90) m/uL Hgb (13.0-17.5) gm/dL Hct (39.0-53.0) % Plt Count (150-450) k/uL Lymphocytes # (1.0-4.8) k/uL Sodium (137-145) mmol/L Chloride (98-107) mmol/L BUN (9-20) mg/dL Glucose (74-99) mg/dL POC Glucose (mg/dL) 192 H 218 H 196 H (70-110) mg/dL Calcium (8.4-10.2) mg/dL 07/26/22 07/26/22 07/26/22 Range/Units 06:11 07:33 07:33 RBC 3.47 L (4.30-5.90) m/uL Hgb 10.5 L (13.0-17.5) gm/dL Hct 30.8 L (39.0-53.0) % Plt Count 129 L (150-450) k/uL Lymphocytes # 0.4 L (1.0-4.8) k/uL Sodium 127 L (137-145) mmol/L Chloride 95 L (98-107) mmol/L BUN 41 H (9-20) mg/dL Glucose 161 H (74-99) mg/dL POC Glucose (mg/dL) 174 H (70-110) mg/dL Calcium 6.3 L* (8.4-10.2) mg/dL 07/26/22 07/26/22 07/26/22 Range/Units 09:21 11:34 16:38 RBC (4.30-5.90) m/uL Hgb (13.0-17.5) gm/dL Hct (39.0-53.0) % Plt Count (150-450) k/uL Lymphocytes # (1.0-4.8) k/uL Sodium (137-145) mmol/L Chloride (98-107) mmol/L BUN (9-20) mg/dL Glucose (74-99) mg/dL POC Glucose (mg/dL) 230 H 221 H 64 L (70-110) mg/dL Calcium (8.4-10.2) mg/dL Assessment and Plan Assessment: 1. Acute kidney injury secondary to combination of low blood pressure as well as possible prostatism with urine retention, currently with indwelling Rojas catheter. Blood pressure medications were reduced significantly, Blood pressure remains on the lower side. Started on midodrine. 2. Ileus. Resolved. 3. A. fib. Cardiology following. Rate controlled. 4. Diabetes mellitus. 5. Neurogenic bladder Rojas catheter inserted last night 07/20/2022, started on Flomax 6. Volume overload 7. Hyponatremia, hypervolemic Plan: Increase Lasix to 40 mg twice daily Repeat labs in a.m. [facility] 1
[2022-07-26 16:54] LABS: Glucose,Whole Blood 59 mg/dL (70-110)
[2022-07-26 17:59] LABS: Glucose,Whole Blood 132 mg/dL (70-110)
[2022-07-26 19:42] LABS: Glucose,Whole Blood 102 mg/dL (70-110)
[2022-07-26] MEDS: ATORVASTATIN 10 MG TAB PO SCH (22:12)
[2022-07-27 02:12] LABS: Glucose,Whole Blood 142 mg/dL (70-110)
--- NOTE | 2022-07-27 02:25 | P.PN ---
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 Patient tried breathing treatments at home without much relief. Patient was tachycardic on admission with heart rate in 160s and was found to be SVT patient was given Ellenson in the ER. Otherwise denied any complaints of chest pain. No nausea vomiting or abdominal pain. Denied any increased leg swelling. No fever no chills. No prior history of SVT. Chest x-ray showed COPD. No active cardiopulmonary disease. Mild pulmonary fibrotic changes. No significant change. CTA chest showed no evidence of PE. Emphysema and mild pulmonary fibrosis. No suspicious pulmonary mass. Laboratory data showed WBC 16.0 hemoglobin 16.0 and platelets 269 Sodium 139 potassium four-point 102 bicarb is 20 BUN 16 and creatinine 0.87 and lactic acid 2.7 Troponin x1 negative and proBNP is 378 TSH 0.49 6 Coronavirus and influenza AMB not detected. Urinalysis is negative for infection. 07/08/2022 Patient continues to be monitored in intensive care unit mostly on BiPAP support but able to be weaned to 3 to 4 L of oxygen via nasal cannula. He is unsure when he has had bowel movement and has limited to no bowel sounds for this reason abdominal xray has been performed showing mildly distended small bowel loops and some segments of colon as well. Consider generalized ileus and difficult to exclude the possibility of a distal colonic obstruction. White blood cell count today 6.1, sodium 144, potassium 4.6, BUN 40, creatinine 0.99, blood glucose 150, magnesium 2.4. Procalcitonin 0.55. Vitals today, patient is afebrile, heart rate 71, blood pressure 121/64, 95% oxygen saturation. Patient has been maintained on dexmedetomidine for acute anxiety which is currently paused. Continues on IV Solu-Medrol, and bronchodilators. Patient is currently on IV cardizem gtt for tachycardia and will be transitioned to oral verapamil today, cardiology is following. 07/09/2022 Patient continues to be monitored in intensive care unit. White count elevated up to 12.4 today he has expiratory wheezing on exam changed from yesterday. Patient requiring bipap at 35% FiO2 currently. He did have low grade fever this morning 99 and is receiving acetaminophen as needed. chest xray today showing chronic emphysema and pulmonary fibrotic change. Procalcitonin level elevated at 0.55. IV ceftriaxone increased to 2 gram every 24 hours. Patient is continued on bronchodilators. Continues on IV solumedrol 60 mg q6h. Dexmedetomidine possibly being weaned off today, seroquel and haldol ordered with ativan as needed. Patient continues with significant abdominal distention and absent bowel sounds left lower quadrant. Did not receive lactulose yesterday. General surgery was consulted for further evaluation, currently placed NPO for possible ileus /bowel obstruction. He is hypertensive today with systolic in the 180s has been started on verapamil TID and also hydralazine 50 BID. Cardiology following. 07/10/2022 Patient evaluated today on BiPAP, fio2 has been increased to 40%, he is using accessory muscles to breath and appears quite aggitated. He is on combination of haldol, seroquel for this. Additionally, he was started on nicotine patch and clonidine patch. NG tube has been placed, patient has not had a BM. Abdominal Pelvis CT completed showing no CT evidence for small bowel obstruction. Patient also had follow up chest xray today showing COPD changes and no acute disease. Never the less he appears to have some respiratory distress requiring BiPAP. white count 11.7 today, sodium 149, BUN 47, creatinine 1.05, blood glucose 170s. Patient has been placed on amiodarone infusion and also heparin gtt as patient is unable to take oral medications currently. He continues on antibiotics. Continues on IV solumedrol. 07/11/2022 Patient is monitored in intensive care unit. Continues with NG tube. Tube feedings have been resumed with vital AF 1.2 with goal of 55 mls per hour. Currrently running at 20 mLs/hour. Patient has free water flush 30 mL every 4 hours, would like to increase free water and discontinue IV fluids. Sodium level today 148, potassium 4.1, chloride 110, BUN 51, creatinine 1.08. Blood glucose in the 240s and insulin has been increased. Patient is receiving lactulose, had fleet enema today. Has not had a BM this admission, bowel sounds in all 4 quadrants today. Amiodarone has been discontinued. Continues on oral verapamil. Heart rate is improving. Patient trialed on airvo 60/60 today. Chest xray showing no focal consolidation. 07/12/2022 Patient is evaluated in ICU, family at bedside. Continues on Airvo 60/60, reports non productive cough. Diffuse weakness. Abdomen distended seems worse than yesterday. Discussed with surgery. Tube feedings have been placed on hold and patient started on daily suppositories. Otherwise continues on empiric ceftriaxone. Chest xray showing COPD with possible underlying pulmonary vascular congestion. Sodium up to 150 today, nephrology consulted. Patient has been started on D5% water at 75 mls per hour. BUN 55 creatinine 1.22 today. Blood glucose 230s. Heart rate 120s today, blood pressure 130/91, remains afebrile. 07/13/2022 Patient continue in Intensive Care unit. Continues on Airvo 60/60. He reports breathing improved today less short of breath. Lung sounds have improved and increased aeration. Less congested. No BM yet, has been started on dulcolax suppository daily. Increased bowel sounds today and abdomen is less distended. Remains on IV ceftriaxone. White count normalized to 9.9. Sodium remains at 150, BUN 51, creatinine 1.21. Blood glucose 200s. hgb A1c found to be 6.5 consistent with diagnosis of diabetes mellitus type 2. Continues on levemir with sliding scale and scheduled novolog coverage. Remains afebrile, heart rate 87, blood pressure 177/91, oxygen saturation 95%. IV steroids have been decreased today. Continues on oral cardizem, oral verapamil. Continues on D5 water at 75 mls per hour. 07/14/2022 Patient continues to be monitored closely in intensive care unit. He continues on Airvo 45/60, has tolerated weaning and continues to report improvement in work of breathing. No wheezing noted on exam today has some coarse scattered ronchi. NG tube remains in place, he did have BM. Will discuss with surgery if NG tube can be discontinued. Will add nystatin swish today which can be applied manually versus swishing. Patient remains diffusely weak has been on bedrest. No breakdown noted on skin. Continues on oral amiodarone, verapamil, anticoagulated with eliquis. Patient has been maintained on empiric antibiotic coverage with IV ceftriaxone, tomorrow will be day 5. white count has normalized consider discontinuing antibiotics tomorrow. Patient is maintaining sinus rhythm today heart rate 80s, blood pressure 159/78, 93% oxygen saturation, has remained afebrile. Labs today are improving, white count remains within normal limits at 10.4, sodium 142, potassium 4.5, chloride normalized to 104, BUN 48, creatinine 1.08. Blood glucose 160s to 200s. IV fluids have been changed to D5 1/2 NS at 50. Repeat labs tomorrow. Multiple consultations following. PT/OT has been consulted. 07/15/22. Patient seen and examined. Daughter at the bedside. Patient continues to be on heated high flow oxygen. States he feels better. Denies any nausea, vomiting. Case discussed with nursing staff 07/16/22. Patient seen and examined. Stated that he had a panic attack this morning, currently doing much better. Breathing is improving. Denies any chest pain. Continues to be on heated high flow 07/17/22. Patient seen and examined. Continues to be on heated high flow. Does not look any acute distress. 07/18/22. Patient seen and examined. Patient is transferred out of ICU. Currently on 4 L of oxygen. Gets short of breath on exertion. Otherwise patient is doing better compared to yesterday 07/19. Patient seen and examined. Continues to be on 4 L of oxygen. Creatinine has bumped up to 1.9. Gets short of breath on exertion. Patient is very weak 07/20. Patient seen and examined. Still gets short of breath on minimal exertion. Denies any chest pain. Not very keen to get out of the bed. Explained to him that he needs to get out of the bed 07/21. Patient seen and examined. Currently sitting in the chair. States he feels better compared to yesterday. Still complaining of productive cough 07/22/2022 Patient monitored sitting up in chair today. He continues on 4L nasal cannula. Hypotensive today blood pressures in the 80s systolic. He did receive a 1L fluid bolus vp emerging media and has been started on midodrine. Verapamil has been placed on hold. Creatinine increased up to 2.08 today, most likely from acute hypotensive episode. He continues in sinus rhythm heart rate in the 70s. Potassium 5.7, sodium 132. Sputum culture pending. 07/23/2022 Patient sitting up in chair today. No acute events overnight. He does report some dizziness. Blood pressure on the lower side throughout the evening and he received a 500 mL fluid bolus. Started on midodrine yesterday as well. Blood pressure improved to 110s/50s. Continues on 4L nasal cannula. Surgery has been following for reports of maroon colored stools which patient reports have resolved, and he is scheduled to undergo EGD colonoscopy . Hgb 11.2. Creatinine improved to 1.8 today. He continues with indwelling catheter. 07/24/2022 Patient resting in bed today. Started goLytely prep for EGD/colonoscopy tomorrow. Reports worsening shortness of breath today. He has scattered wheezing today. Patient would benefit from lasix which nephrology has ordered an IV dose x 1 today, 40 mg and will start oral lasix 40 mg daily tomorrow. Hemoglobin remains stable at 10.6, sodium 130, BUN 77, creatinine 1.6 today. Blood glucose in the 70s, monitor closely. Decreased levemir and scheduled insulin. Continues with indwelling catheter. Blood pressure improved, 108/69. Continues on midodrine. 07/25/2022 Patient is seen in follow-up today with family at the bedside currently scheduled to undergo colonoscopy with EGD with general surgery today. Patient is currently maintained on 2-4 L of oxygen via nasal cannula and recommend wean FiO2 as tolerated. Nephrology following inpatient is maintained on Lasix that has been transitioned oral and increasing today to 40 mg twice daily and recommending repeat labs. Sodium on the lower side. Patient is currently nothing by mouth and will resume diet once done with endoscopy. Patient to continue with indwelling Greenfield catheter and also strongly recommend aspiration precautions along with continuing to monitor Accu-Cheks before meals and at bedtime. Patient is afebrile denies worsening shortness of breath or chest pain. Will await endoscopy report. 07/26/2022 Patient is seen and evaluated today post EGD/colonoscopy. Per report there was a poor bowel prep although parts visualized of the colonoscopy with no evidence of GI bleed and possibly secondary to erosive esophagitis. Multiple biopsies were obtained and patient will need follow-up outpatient. Hemoglobin is stable with no evidence of bleeding noted. Patient with abdominal distention ordered CT abdomen which is currently pending for this morning. Currently NPO per surgery recommendations. Continued on oral lasix with nephrology following. Sodium continues to be low and kidney functions elevated. Patient is asking for advance in diet as he has not had any real food in days due to recent colonoscopy prep. Review of Systems Constitutional: Reports fatigue denied any fever. Cardio vascular: denied any chest pain, palpitations Gastrointestinal: denied any nausea, vomiting, diarrhea, maroon stools resolved. Pulmonary: Reports shortness of breath although not any worse, no cough. Neurologic reports weakness All inpatient medications were reviewed and appropriate changes in these medications as dictated in the interval history and assessment and plan. Active Medications Albuterol/Ipratropium (Ipratropium-Albuterol 3 Ml Neb) 3 ml INHALATION RT-Q2H PRN PRN Reason: Shortness Of Breath Or Wheezing Last Admin: 07/17/22 03:32 Dose: 3 ml Albuterol/Ipratropium (Ipratropium-Albuterol 3 Ml Neb) 3 ml INHALATION RT-QID [facility] Last Admin: 07/25/22 19:37 Dose: 3 ml Alprazolam (Alprazolam 0.5 Mg Tab) 0.5 mg PO TID PRN PRN Reason: Anxiety Last Admin: 07/21/22 22:07 Dose: 0.5 mg Amiodarone HCl (Amiodarone 200 Mg Tab) 200 mg PO BID [facility] Last Admin: 07/26/22 07:54 Dose: 200 mg Atorvastatin Calcium (Atorvastatin 10 Mg Tab) 10 mg PO HS [facility] Last Admin: 07/25/22 21:07 Dose: 10 mg Benzocaine/Menthol (Benzocaine/Menthol Lozeng 1 Each Lozenge) 1 each MUCOUS MEM Q4HR PRN PRN Reason: Sore Throat Last Admin: 07/16/22 09:03 Dose: 1 each Bisacodyl (Bisacodyl 10 Mg Supp) 10 mg RECTAL DAILY [facility] Last Admin: 07/26/22 07:55 Dose: 10 mg Budesonide/Formoterol Fumarate (Symbicort 160-4.5 Mcg Inhaler) 2 puff INHALATION RT-BID [facility] Last Admin: 07/25/22 19:37 Dose: 2 puff Dextrose/Water (Dextrose 50% Syringe 50 Ml) 25 ml IVP PER PROTOCOL PRN; Protocol PRN Reason: Hypoglycemia Last Admin: 07/25/22 11:58 Dose: 25 ml Dextrose/Water (Dextrose 50% Syringe 50 Ml) 50 ml IVP PER PROTOCOL PRN; Protocol PRN Reason: Hypoglycemia Last Admin: 07/25/22 20:47 Dose: 50 ml Famotidine (Famotidine 20 Mg Tab) 20 mg PO DAILY [facility] Last Admin: 07/26/22 07:55 Dose: 20 mg Furosemide (Furosemide 40 Mg Tab) 40 mg PO DAILY [facility] Last Admin: 07/26/22 07:55 Dose: 40 mg Insulin Aspart (Insulin Aspart (Novolog) 100 Unit/Ml Vial) 0 unit SQ ACHS [facility]; Protocol Last Admin: 07/26/22 07:08 Dose: Not Given Insulin Aspart (Insulin Aspart (Novolog) 100 Unit/Ml Vial) 3 unit SQ ACHS [facility] Last Admin: 07/26/22 07:08 Dose: Not Given Insulin Detemir (Insulin Detemir (Levemir) 100 Unit/Ml Syr) 10 unit SQ BID@0700,2100 [facility] Last Admin: 07/26/22 07:54 Dose: 10 unit Iopamidol (Iopamidol Contrast (Oral Use) Vial) 30 ml PO ONCE PRN PRN Reason: CT Scan Stop: 07/26/22 14:44 Midodrine (Midodrine 5 Mg Tab) 5 mg PO AC-TID [facility] Last Admin: 07/26/22 07:21 Dose: Not Given Miscellaneous Information (Potassium Replacement Protocol 1 Each Misc) 1 each MISCELLANE DAILY PRN; Protocol PRN Reason: Per Protocol Naloxone HCl (Naloxone 0.4 Mg/Ml 1 Ml Vial) 0.2 mg IV Q2M PRN PRN Reason: Opioid Reversal Nystatin (Nystatin 100,000 Unit/Ml Susp 500,000 Unit/5 Ml Cup) 500,000 unit PO QID [facility]; Protocol Last Admin: 07/26/22 07:55 Dose: 500,000 unit Pantoprazole Sodium (Pantoprazole 40 Mg/10 Ml Vial) 40 mg IVP DAILY [facility] Last Admin: 07/26/22 09:06 Dose: 40 mg Prednisone (Prednisone 10 Mg Tab) 30 mg PO DAILY [facility] Last Admin: 07/26/22 07:54 Dose: 30 mg Tamsulosin HCl (Tamsulosin 0.4 Mg Cap.Er.24h) 0.4 mg PO PC-BRKFST [facility] Last Admin: 07/26/22 07:55 Dose: 0.4 mg PHYSICAL EXAMINATION: GENERAL: The patient is alert and oriented x3. Well developed, well nourished. Sitting up in the chair. Obese. HEENT: Pupils are round and equally reacting to light. EOMI. No scleral icterus. No conjunctival pallor. Normocephalic, atraumatic. No pharyngeal erythema. No thyromegaly. CARDIOVASCULAR: S1 and S2 muffled PULMONARY: Scattered wheezing, coarse lung sounds bilaterally. Faint bibasilar crackles. ABDOMEN: Soft, nontender, distended, normoactive bowel sounds. No palpable organomegaly. Round, obese. MUSCULOSKELETAL: No joint swelling or deformity. EXTREMITIES: No cyanosis, clubbing, or pedal edema. NEUROLOGICAL: Gross neurological examination did not reveal any focal deficits. Diffuse generalized weakness. SKIN: No rashes. Assessment: Acute COPD exacerbation and tracheobronchitis, improving Acute hypoxemic respiratory failure secondary to above, has been weaned off BiPAP/Airvo support and currently on 4L nasal cannula SVT/Atrial fibrillation with rapid rate converted to normal sinus rhythm Hypertension currently hypotensive, improving on midodrine. Ruled out GI bleed On EGD colonoscopy, most likely erosive esophagitis Hypernatremia, resolved currently hyponatremic Metabolic acidosis resolved Acute kidney injury, initially resolved, creatinine elevated from hypotension and component of urinary retention Urinary retention with indwelling greenfield catheter Diabetes Mellitus type 2 A1C 6.5. Ileus, resolved BPH Prior history of smoking History of throat cancer and vocal cord status post radiation 2016 GI prophylaxis DVT prophylaxis Full Code Plan: Continue oxygen supplementation, aggressive pulmonary hygiene and wean FiO2 as tolerated continued on 4L via NC Patient with abdominal distention and some discomfort with bloating, CT abdomen shows generalized anasarca change. Trace to small bilateral pleural effusions with atelectasis. Trace to small ascites. New small to moderate anterior pericardial effusion. Correlate for fluid overload state and third spacing. Cecal dilatation of 10 cm. Note that prolong dilatation places the cecum at risk for perforation. There is air distention of the distal ileum up to 3.5 cm and ascending and transverse colon up to 6.3 cm. No discrete transition point identified to clearly indicate bowel obstruction. Prominent fluid-filled small bowel loops could reflect generalized ileus or enteritis. Some haziness about the pancreatic head region may reflect mild mesenteric edema related to fluid overload. Correlate with amylase and lipase to exclude mild pancreatitis. High density material/contrast within the gallbladder lumen suggesting for carious excretion of previously administered conscious to the biliary system. Surgery recommends NPO for now Short term amiodarone therapy for one month and then discontinue per cardiology Patient started on midodrine, verapamil on hold. Continue Flomax, indwelling catheter EGD/Colonoscopy done yesterday and per report shows a poor bowel prep with no evidence of GI bleeding in the colonoscopy and most likely secondary to erosive esophagitis and biopsies were obtained Oral Lasix daily 40 mg per nephrology Repeat labs in AM Continues on oral steroid taper Subacute rehab on discharge when medically stable Overall prognosis remains guarded. The impression and plan of care has been dictated by Tiffanie Kauffman, Nurse Practitioner as directed. Dr. Joe MD I have performed a history and examination and MDM of this patient, discussed the same with the dictator, and agree with the dictator's assessment and plan as written ,documented as a scribe. Based on total visit time, I have performed more than 50% of the visit. Objective - Vital Signs Vital signs: Vital Signs Temp 98.3 F 07/26/22 02:13 Pulse 70 07/26/22 02:13 Resp 18 07/26/22 02:13 BP 123/70 07/26/22 02:13 Pulse Ox 93 L 07/26/22 02:13 FiO2 35 07/17/22 11:06 Intake & Output 07/25/22 07/26/22 07/26/22 18:59 06:59 18:59 Intake Total 100 Output Total 300 2100 Balance -200 -2100 Weight 83.5 kg Intake: IV 100 Output: Urine 300 2100 Other: Voiding Method Indwelling Catheter Indwelling Catheter - Labs CBC & Chem 7: 07/26/22 07:33 07/26/22 07:33 Labs: Abnormal Lab Results - Last 24 Hours (Table) 07/25/22 07/25/22 07/25/22 Range/Units 11:03 11:52 16:46 RBC 3.88 L (4.30-5.90) m/uL Hgb 11.7 L (13.0-17.5) gm/dL Hct 34.0 L (39.0-53.0) % Plt Count 148 L (150-450) k/uL Lymphocytes # (1.0-4.8) k/uL Sodium (137-145) mmol/L Chloride (98-107) mmol/L BUN (9-20) mg/dL Glucose (74-99) mg/dL POC Glucose (mg/dL) 67 L 168 H (70-110) mg/dL Calcium (8.4-10.2) mg/dL 07/25/22 07/25/22 07/25/22 Range/Units 20:21 20:41 21:05 RBC (4.30-5.90) m/uL Hgb (13.0-17.5) gm/dL Hct (39.0-53.0) % Plt Count (150-450) k/uL Lymphocytes # (1.0-4.8) k/uL Sodium (137-145) mmol/L Chloride (98-107) mmol/L BUN (9-20) mg/dL Glucose (74-99) mg/dL POC Glucose (mg/dL) 42 L 42 L 192 H (70-110) mg/dL Calcium (8.4-10.2) mg/dL 07/25/22 07/26/22 07/26/22 Range/Units 23:47 02:16 06:11 RBC (4.30-5.90) m/uL Hgb (13.0-17.5) gm/dL Hct (39.0-53.0) % Plt Count (150-450) k/uL Lymphocytes # (1.0-4.8) k/uL Sodium (137-145) mmol/L Chloride (98-107) mmol/L BUN (9-20) mg/dL Glucose (74-99) mg/dL POC Glucose (mg/dL) 218 H 196 H 174 H (70-110) mg/dL Calcium (8.4-10.2) mg/dL 07/26/22 07/26/22 07/26/22 Range/Units 07:33 07:33 09:21 RBC 3.47 L (4.30-5.90) m/uL Hgb 10.5 L (13.0-17.5) gm/dL Hct 30.8 L (39.0-53.0) % Plt Count 129 L (150-450) k/uL Lymphocytes # 0.4 L (1.0-4.8) k/uL Sodium 127 L (137-145) mmol/L Chloride 95 L (98-107) mmol/L BUN 41 H (9-20) mg/dL Glucose 161 H (74-99) mg/dL POC Glucose (mg/dL) 230 H (70-110) mg/dL Calcium 6.3 L* (8.4-10.2) mg/dL
[2022-07-27 05:54] LABS: Glucose,Whole Blood 201 mg/dL (70-110)
[2022-07-27] MEDS: MIDODRINE 5 MG TAB PO SCH ×3 (07:18→17:53)
[2022-07-27] MEDS: INSULIN DETEMIR (LEVEMIR) 100 UNIT/ML SYR SQ SCH ×2 (07:25→22:18)
[2022-07-27] MEDS: INSULIN ASPART (NovoLOG) 100 UNIT/ML VIAL SQ SCH ×8 (07:26→22:22)
[2022-07-27] MEDS: IPRATROPIUM-ALBUTEROL 3 ML NEB INHALATION SCH ×4 (07:54→21:50)
[2022-07-27] MEDS: SYMBICORT 160-4.5 MCG INHALER INHALATION SCH ×2 (07:54→21:50)
[2022-07-27] MEDS: PANTOPRAZOLE 40 MG/10 ML VIAL IVP SCH (08:58)
[2022-07-27] MEDS: TAMSULOSIN 0.4 MG CAP.ER.24H PO SCH (09:08)
[2022-07-27] MEDS: FAMOTIDINE 20 MG TAB PO SCH (09:08)
[2022-07-27] MEDS: FUROSEMIDE 40 MG TAB PO SCH ×2 (09:08→17:53)
[2022-07-27] MEDS: AMIODARONE 200 MG TAB PO SCH ×2 (09:08→22:18)
[2022-07-27] MEDS: CALCIUM CARBONATE 500 MG CHEWABLE PO SCH ×3 (09:08→22:17)
[2022-07-27] MEDS: bisacodyL 10 MG SUPP RECTAL SCH (09:08)
[2022-07-27] MEDS: predniSONE 10 MG TAB PO SCH (09:08)
[2022-07-27] MEDS: NYSTATIN 100,000 UNIT/ML SUSP 500,000 UNIT/5 ML CUP PO SCH ×4 (09:08→22:19)
--- NOTE | 2022-07-27 09:56 | P.PN ---
Subjective Patient is seen for follow-up for acute kidney injury Patient was noted to have significant urine retention and currently has an indwelling Rojas catheter. Systolic blood pressure was on the lower side around 91-85 mmHg. Improved with midodrine. 5900 mL of urine noted on 24-hour output Serum creatinine 1.2 yesterday. Status post IV Lasix and started on on oral Lasix 40 mg , increase to twice a day. No significant complaints today. Objective - Vital Signs Vital signs: Vital Signs Temp 97.6 F 07/27/22 08:00 Pulse 74 07/27/22 08:05 Resp 17 07/27/22 08:00 BP 112/71 07/27/22 08:00 Pulse Ox 95 07/27/22 08:00 FiO2 35 07/17/22 11:06 Intake & Output 07/26/22 07/27/22 07/27/22 18:59 06:59 18:59 Intake Total 240 Output Total 1300 4600 Balance -1060 -4600 Weight 81 kg Intake: Oral 240 Output: Urine 1300 4600 Other: Voiding Method Indwelling Catheter Indwelling Catheter # Bowel Movements 1 - Exam Awake, comfortable, no acute distress Examination of the heart S1 and S2 Examination lungs decreased breath sounds at the bases Abdomen is soft nontender Examination lower extremity shows edema 2+ bilaterally [employer] exam grossly intact - Labs CBC & Chem 7: 07/26/22 07:33 07/26/22 07:33 Labs: Abnormal Lab Results - Last 24 Hours (Table) 07/26/22 07/26/22 07/26/22 Range/Units 11:34 16:38 16:52 POC Glucose (mg/dL) 221 H 64 L 59 L (70-110) mg/dL 07/26/22 07/27/22 07/27/22 Range/Units 17:58 02:10 05:53 POC Glucose (mg/dL) 132 H 142 H 201 H (70-110) mg/dL Assessment and Plan Assessment: 1. Acute kidney injury secondary to combination of low blood pressure as well as possible prostatism with urine retention, currently with indwelling Rojas catheter. Blood pressure medications were reduced significantly, Blood pressure remains on the lower side. Started on midodrine. 2. Ileus. Resolved. 3. A. fib. Cardiology following. Rate controlled. 4. Diabetes mellitus. 5. Neurogenic bladder Rojas catheter inserted last night 07/20/2022, started on Flomax 6. Volume overload 7. Hyponatremia, hypervolemic status post Samsca Plan: Continue with Lasix 40 mg twice daily Repeat labs in a.m. Check labs today
[2022-07-27 11:16] LABS: Basophils # (A) 0 X 10*3/uL (0.00-0.10); Basophils % (A) 0 %; Eosinophils # (A) 0.05 X 10*3/uL (0.04-0.35); Eosinophils % (A) 0.7 %; HCT 31.5 % (39.6-50.0); HGB 10.6 g/dL (13.0-17.0); Immature Grans, Automated 0.4 %; Lymphocytes # (A) 0.51 X 10*3/uL (0.90-5.00); Lymphocytes % (A) 6.8 %; MCH 29.9 pg (27.0-32.0); MCHC 33.7 g/dL (32.0-37.0); MCV 88.7 fL (80.0-97.0); Monocytes # (A) 0.14 X 10*3/uL (0.20-1.00); Monocytes % (A) 1.9 %; NRBC Per 100 WBC 0 /100 WBCS (0.0-0.0); Neutrophils # (A) 6.73 X 10*3/uL (1.80-7.70); Neutrophils % (A) 90.2 %; Platelet Count 127 X 10*3/uL (140-440); RBC 3.55 X 10*6/uL (4.40-5.60); RDW 12.1 % (11.5-14.5); WBC 7.46 X 10*3/uL (4.50-10.00)
[2022-07-27 11:50] LABS: Glucose,Whole Blood 100 mg/dL (70-110)
[2022-07-27 12:08] LABS: African American GFR (CKD) 54.7 (60.0-200.0); Anion Gap 9.9 mmol/L (10.00-18.00); BUN/Creat Ratio 23.73 Ratio (12.00-20.00); Blood Urea Nitrogen 35.6 mg/dL (9.0-27.0); Calcium 7.1 mg/dL (8.7-10.3); Carbon Dioxide 28.3 mmol/L (20.0-27.5); Non-African American GFR(CKD) 47.2 (60.0-200.0); Potassium 3.8 mmol/L (3.5-5.5)
--- NOTE | 2022-07-27 12:19 | P.PN ---
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 The patient is currently being seen in the intensive care unit for alcohol withdrawal was and hypoxic respiratory failure. This morning, is awake and alert and there is no significant agitation. He remains on high flow oxygen at 45 L with an FiO2 of 56%. His current pulse ox is around 89%. Note that he had a CT angiogram at time of admission that showed no evidence of any pulmonary embolism. It showed emphysema and mild portal fibrosis. His resting comfortably in bed. He has no significant shortness of breath at rest. The same time, the patient has been in normal sinus rhythm. Noted at the time of admission, he was in atrial fibrillation and he was treated with a Cardizem drip and currently is off the drip. He is also off Precedex for now. Neurologically, he is alert and oriented 3. His most recent chest x-ray from yesterday showing some atelec tatic changes in the lung bases and emphysema. Otherwise no other major abnormalities are noted. In terms of treatment, the patient is currently on DuoNeb about treatments [id number], he is on Pulmicort Respules 1 mg twice a day, he is on IV Solu-Medrol 40 mg every 6 hours. Is also on performance 1 nevertheless treatment twice a day. He is covered with antibiotics and the patient is receiving Rocephin 2 g every 24 hours. His blood cultures from this admission is negative. The white cell count is at 12 with a hemoglobin of 14.7 and a platelet count of 188. BUN is 44 with a creatinine of 1.1 and sodium levels of 137. In terms of his viral screen, the patient had a negative Covid 19 infection. Influenza screen was negative at the time of admission. On today's evaluation of 07/16/2022, the patient remains on high flow oxygen at 45 L with an FiO2 of 50%. The patient is feeling better and less short of breath compared to yesterday. No significant cough or sputum production. The patient was offered an incentive spirometer and the patient is able to generate adequate volumes on the incentive spirometer, nevertheless, the values remain less than 500 mL. The patient is on IV Rocephin. The patient was growing Haemophilus influenza in his sputum. At the same time, the patient remains on bronchodilators and he is on DuoNeb neb blotchiness 4 times a day, he is on a combination of Perforomist and Pulmicort neb less treatments twice a day and IV Solu-Medrol and the doses 40 mg IV every 6 hours. He was started on diuretics and to dose of Lasix will be given to him today. In terms of his blood work, his sodium level is at 137 with a potassium level of 4.4, BUN of 44 with a creatinine of 1.05 with RBC count of 12 a hemoglobin 14.8 and a platelet count of 148. LFTs are essentially within normal limits. On today's evaluation of 07/17/2022, the patient has no specific complaints. The patient is gradually improving. This morning, the patient was weaned down to 40 liters with an FiO2 of 35% high flow oxygen. The patient is otherwise doing well. He is using the incentive spirometer. He is still coughing and his cough is congested. Unable to bring up much sputum. He was diuresis yesterday and he has been negative fluid balance for now. BUN is a 53 with a creatinine of 1.29 his sodium levels is 135. The patient's WBC count is at 16.4 with a hemoglobin of 14.5. Remains on DuoNeb about treatments [id number]. Remains on IV Solu-Medrol. No altered mentation. No chest pain. Remains quite weak and his been having generalized global weakness. He is on Levemir 14 units daily twice a day and the patient is on NovoLog 40 units with meals and a sliding scale coverage. No altered mentation. No other new complaints. 07/18/2022, patient is doing well. The patient has been taken off the high flow oxygen the patient is currently on 4 L of O2 nasal cannula. No new complaints. IV Solu-Medrol was then tapered down to 20 mg every 8 hours. Limited cough. No significant congestion. So bronchospastic and wheezy. Air entry is quite limited in the lung bases bilaterally. He has advanced COPD.Transferred out of the intensive care unit yesterday. He is using the incentive spirometer. On his blood work, the patient has a white cell count of 8.9 with a hemoglobin of 12.4 count of 264. The patient has a BUN of 17 with a creatinine of 0.6 and his sodium level is 145. LFTs are normal. On 07/19/2022, I'm seeing the patient for a follow-up. The patient is currently on 4 L of oxygen by nasal cannula. No new complaints. He remains on IV Solu- Medrol 40 mg every 6 hours. He remains on DuoNeb about treatments on the clock. He is still very weak and he may need rehabilitation. He was transferred out of the intensive care unit few days back. echoes at 70 with a hemoglobin of 15.3 and a platelet count of 202. BUN is at 80 with a creatinine of 1.9 and there is a slight rise in the creatinine compared to yesterday's blood work. This is probably related to diuresis. 07/20/2022, the patient is still on 4 L of Oxymizer nasal cannula. Overall respiratory status is stable. Nevertheless, the patient was having some issues with obstructive uropathy. The park activities coordinator was consulted. The patient is having frequent bladder scans. Flomax was also added to the regimen at a dose of 0.4 mg on a daily basis. The patient's creatinine currently is at 1.9 and the BUN is 89 with a sodium level of 133. Diuretics were held. echoes at 60 with a hemoglobin 12.7. Potassium is at 4.8. LFTs are normal. The patient remains on DuoNeb about treatments [id number]. The patient remains on IV Solu-Medrol at a dose of 40 mg every 6 hours. No diuretics for now. 07/21/2022, the patient remains on 4 L of O2 nasal cannula. He was able to sit up on a recliner for next 10. Time yesterday. He stated a Rojas catheter in place. Creatinine is being monitored. he remains on DuoNeb neb on the clock is also on IV Solu-Medrol was tapered down to 40 mg every 6 hours. The patient started developing some colored mucus and for that reason, another sputum analysis will be done today. His tolerating diet. His oral intake is gradually improving. He is quite weak and debilitated. He may need an ECF placement at a later stage. No other new complaints for now. Family is at the bedside. I lengthy discussion with the patient's family The blood work from today shows a white cell count of 12.4 with a hemoglobin of 11.8. Sodium is at 131, BUN is 97 with a creatinine of 1.85 and the rest of the liver function tests are essentially within normal limits. The patient is seen today 07/22/2022 in follow-up on the regular medical floor. He is currently sitting up in a chair at the bedside. Awake and alert in no acu te distress. Maintaining O2 saturations in the 90s on 4 L/m per nasal cannula. Blood cultures revealed no growth. Sputum culture pending. White count 13.7. Hemoglobin 12.6. Sodium 132. Potassium 5.7. Bicarb 28. BUN 105. Creatinine 2.08. Glucose 139. He is continued on DuoNeb inhalations, Pulmicort and Perforomist inhalations, prednisone taper. The patient is seen today 07/23/2022 in follow-up on the regular medical floor. He is awake and alert in no acute distress. Sitting up in a chair at the bedside. Maintaining O2 saturations in the 90s on 4 L/m per nasal cannula. Blood and sputum cultures revealed no growth. White count 11.8. Hemoglobin 11.2. Sodium 129. Potassium 4.7. BUN 103. Creatinine 1.86. Glucose 77. Remains on DuoNeb inhalations, Pulmicort and Perforomist inhalations, prednisone taper. The patient's stool was positive for occult blood. The plan is for EGD/colonoscopy on 07/25/2022. Currently on a clear liquid diet. The patient is seen today 07/24/2022 in follow-up on the regular medical floor. Currently sitting up in a chair at the bedside. Awake and alert in no acute distress. He is maintaining good O2 saturations in the 90s on 4 L/m per nasal cannula. No worsening shortness of breath, cough or congestion. White count 8.9. Hemoglobin 10.6. Sodium 130. Potassium 4.8. BUN 77. Creatinine 1.6. Glucose 70. He received Lasix 40 mg IVP 1 today. Currently in a negative balance. Remains on DuoNeb inhalations, Pulmicort and Perforomist inhalations, prednisone taper. He is awaiting a EGD/colonoscopy tomorrow. The patient is seen today 07/25/2022 in follow-up on the regular medical floor. He is awake and alert in no acute distress. Currently sitting up in bed. He was having some issues with emesis earlier. Clear fluid returned. He has been on a bowel prep. He is currently maintaining O2 saturations in the high 90s on 4 L nasal cannula. His lung sounds are clear. No shortness of breath, cough or congestion. Sputum culture revealed no growth. Sodium 129. Potassium 4.0. BUN 66. Creatinine 1.40. He remains on Symbicort, DuoNeb inhalations. Oral diuretics. Prednisone taper. Plan is for EGD/colonoscopy today. The patient is seen today 07/26/2022 in follow-up on the regular medical floor. Currently sitting up in a chair at the bedside. Eating lunch. He did undergo EGD and partial colonoscopy. Not completed due to poor prep. He was found to have duodenitis, antral gastritis, erosive esophagitis, diverticulosis. No active bleeding noted. Computed tomography scan of the abdomen today revealed g eneralized anasarca. Trace to small bilateral effusions with adjacent atelectasis. Trace to small abdominal ascites. Small to moderate anterior pericardial effusion. Cecal dilatation of 10.0 cm. There is contiguous air distention of the distal ileum up to 3.5 cm in the ascending and transverse colon up to 6.3 cm. Blood cultures revealed no growth. Sputum culture revealed no growth. White count 5.8. Hemoglobin 10.5. Platelets 129. Sodium 127. Potassium 3.7. BUN 41. Creatinine 1.21. Glucose 161. He remains on DuoNeb inhalations, Symbicort, prednisone taper. Oral diuretics. The patient is seen today 07/27/2022 in follow-up on the regular medical floor. He is currently sitting up in a chair at the bedside. Awake and alert in no acute distress. Maintaining O2 saturations in the 90s on 2 L/m per nasal cannula. Afebrile. Denies any worsening abdominal discomfort. Blood cultures revealed no growth. Sputum culture revealed no growth. White count 7.4. Hemoglobin 10.6. Sodium 137. Potassium 3.8. BUN 35. Creatinine 1.5. Glucose 200. He remains on DuoNeb inhalations, Symbicort, prednisone taper. Oral diuretics. Objective - Vital Signs Vital signs: Vital Signs Temp 97.6 F 07/27/22 08:00 Pulse 77 07/27/22 11:41 Resp 17 07/27/22 08:00 BP 112/71 07/27/22 08:00 Pulse Ox 95 07/27/22 08:00 FiO2 35 07/17/22 11:06 Intake & Output 07/26/22 07/27/22 07/27/22 18:59 06:59 18:59 Intake Total 240 Output Total 1300 4600 Balance -1060 -4600 Weight 81 kg Intake: Oral 240 Output: Urine 1300 4600 Other: Voiding Method Indwelling Catheter Indwelling Catheter # Bowel Movements 1 - Exam Alert, 66-year-old male, up in a chair, no acute distress, currently on 2 L nasal cannula. HEENT examination is grossly unremarkable. Neck supple. Full range of motion. No adenopathy thyromegaly or neck vein distention. Cardiovascular examination reveals regular rhythm rate. S1-S2 normal. No S3 or S4. No discernible murmur noted. Heart sounds are distant. Lungs reveal no crackles, wheeze or rhonchi. Abdomen soft, positive bowel sounds. No masses or tenderness. Extremities are intact. No cyanosis clubbing or edema. Skin is without rash or lesion.Examination of the skin revealed no evidence of significant rashes, suspicious appearing nevi or other concerning lesions. Neurologic examination Neurologically, the patient is awake and alert and the patient does not have any focal neurological deficit. Cranial nerves are essentially intact. - Labs CBC & Chem 7: 07/27/22 07:29 07/27/22 07:29 Labs: Abnormal Lab Results - Last 24 Hours (Table) 07/26/22 07/26/22 07/26/22 Range/Units 16:38 16:52 17:58 RBC (4.40-5.60) X 10*6/uL Hgb (13.0-17.0) g/dL Hct (39.6-50.0) % Plt Count (140-440) X 10*3/uL MPV (9.5-12.2) fL Lymphocytes # (0.90-5.00) X 10*3/uL Monocytes # (0.20-1.00) X 10*3/uL Carbon Dioxide (20.0-27.5) mmol/L Anion Gap (10.00-18.00) mmol/L BUN (9.0-27.0) mg/dL Est GFR (CKD-EPI)AfAm (60.0-200.0) Est GFR (CKD-EPI)NonAf (60.0-200.0) BUN/Creatinine Ratio (12.00-20.00) Ratio Glucose (70-110) mg/dL POC Glucose (mg/dL) 64 L 59 L 132 H (70-110) mg/dL Calcium (8.7-10.3) mg/dL 07/27/22 07/27/22 07/27/22 Range/Units 02:10 05:53 07:29 RBC 3.55 L (4.40-5.60) X 10*6/uL Hgb 10.6 L (13.0-17.0) g/dL Hct 31.5 L (39.6-50.0) % Plt Count 127 L (140-440) X 10*3/uL MPV 9.0 L (9.5-12.2) fL Lymphocytes # 0.51 L (0.90-5.00) X 10*3/uL Monocytes # 0.14 L (0.20-1.00) X 10*3/uL Carbon Dioxide (20.0-27.5) mmol/L Anion Gap (10.00-18.00) mmol/L BUN (9.0-27.0) mg/dL Est GFR (CKD-EPI)AfAm (60.0-200.0) Est GFR (CKD-EPI)NonAf (60.0-200.0) BUN/Creatinine Ratio (12.00-20.00) Ratio Glucose (70-110) mg/dL POC Glucose (mg/dL) 142 H 201 H (70-110) mg/dL Calcium (8.7-10.3) mg/dL 07/27/22 Range/Units 07:29 RBC (4.40-5.60) X 10*6/uL Hgb (13.0-17.0) g/dL Hct (39.6-50.0) % Plt Count (140-440) X 10*3/uL MPV (9.5-12.2) fL Lymphocytes # (0.90-5.00) X 10*3/uL Monocytes # (0.20-1.00) X 10*3/uL Carbon Dioxide 28.3 H (20.0-27.5) mmol/L Anion Gap 9.90 L (10.00-18.00) mmol/L BUN 35.6 H (9.0-27.0) mg/dL Est GFR (CKD-EPI)AfAm 54.7 L (60.0-200.0) Est GFR (CKD-EPI)NonAf 47.2 L (60.0-200.0) BUN/Creatinine Ratio 23.73 H (12.00-20.00) Ratio Glucose 200 H (70-110) mg/dL POC Glucose (mg/dL) (70-110) mg/dL Calcium 7.1 L (8.7-10.3) mg/dL Assessment and Plan Assessment: Acute hypoxemic respiratory failure secondary to COPD exacerbation and the patient presented with acute hypoxic and hypercapnic respiratory failure. Oxygenation has improved. Remains on 2 liters nasal cannula. Severe COPD and the patient has an FEV1 of 39% of predicted at baseline and this is based on spirometry that was done on 09/28/2020. The patient has been maintained on Advair and DuoNeb about treatments [id number].. Delirium, recovered Acute kidney injury and the creatinine is currently 1.4. GFR of 51 Acute tracheobronchitis. Recovered Supraventricular tachycardia/atrial fibrillation with RVR. Patient is currently on normal sinus rhythm. The patient is also on anticoagulation with Eliquis. The patient has a normal LV function History of laryngeal carcinoma, in remission, status post radiation treatment, diagnosed in 2017. Acute hypercapnic respiratory failure secondary to severe COPD. GI bleed with positive stool for occult blood, current hemoglobin 10.6. Plans for EGD/colonoscopy revealed duodenitis, antral gastritis, erosive esophagitis, diverticulosis. No active bleeding. Cecal dilatation of 10 cm with distention in the distal ileum to the ascending and transverse colon Plan: The patient was seen and evaluated Medications and labs reviewed Stable and on 2 L nasal cannula Continue a prednisone taper, Symbicort Home once cleared by medicine I have personally seen and examined the patient, performed the documentation and the assessment and plan as written. Number of minutes spent on the visit: 10.
--- NOTE | 2022-07-27 12:52 | P.PN ---
Subjective Progress Note Date: 07/27/22 Patient status post upper and lower endoscopy. He reports passing a moderate flatus since a computed tomography scan yesterday. Currently obtaining nebulizer treatment. He is hungry. Recommend abdominal x-ray. Addition of Entereg and simethicone for abdominal distention. Likely resume diet pending f ilms. Objective - Vital Signs Vital signs: Vital Signs Temp 97.6 F 07/27/22 08:00 Pulse 77 07/27/22 11:41 Resp 17 07/27/22 08:00 BP 112/71 07/27/22 08:00 Pulse Ox 95 07/27/22 08:00 FiO2 35 07/17/22 11:06 Intake & Output 07/26/22 07/27/22 07/27/22 18:59 06:59 18:59 Intake Total 240 Output Total 1300 4600 Balance -1060 -4600 Weight 81 kg Intake: Oral 240 Output: Urine 1300 4600 Other: Voiding Method Indwelling Catheter Indwelling Catheter # Bowel Movements 1 - Labs CBC & Chem 7: 07/27/22 07:29 07/27/22 07:29 Labs: Abnormal Lab Results - Last 24 Hours (Table) 07/26/22 07/26/22 07/26/22 Range/Units 16:38 16:52 17:58 RBC (4.40-5.60) X 10*6/uL Hgb (13.0-17.0) g/dL Hct (39.6-50.0) % Plt Count (140-440) X 10*3/uL MPV (9.5-12.2) fL Lymphocytes # (0.90-5.00) X 10*3/uL Monocytes # (0.20-1.00) X 10*3/uL Carbon Dioxide (20.0-27.5) mmol/L Anion Gap (10.00-18.00) mmol/L BUN (9.0-27.0) mg/dL Est GFR (CKD-EPI)AfAm (60.0-200.0) Est GFR (CKD-EPI)NonAf (60.0-200.0) BUN/Creatinine Ratio (12.00-20.00) Ratio Glucose (70-110) mg/dL POC Glucose (mg/dL) 64 L 59 L 132 H (70-110) mg/dL Calcium (8.7-10.3) mg/dL 07/27/22 07/27/22 07/27/22 Range/Units 02:10 05:53 07:29 RBC 3.55 L (4.40-5.60) X 10*6/uL Hgb 10.6 L (13.0-17.0) g/dL Hct 31.5 L (39.6-50.0) % Plt Count 127 L (140-440) X 10*3/uL MPV 9.0 L (9.5-12.2) fL Lymphocytes # 0.51 L (0.90-5.00) X 10*3/uL Monocytes # 0.14 L (0.20-1.00) X 10*3/uL Carbon Dioxide (20.0-27.5) mmol/L Anion Gap (10.00-18.00) mmol/L BUN (9.0-27.0) mg/dL Est GFR (CKD-EPI)AfAm (60.0-200.0) Est GFR (CKD-EPI)NonAf (60.0-200.0) BUN/Creatinine Ratio (12.00-20.00) Ratio Glucose (70-110) mg/dL POC Glucose (mg/dL) 142 H 201 H (70-110) mg/dL Calcium (8.7-10.3) mg/dL 07/27/22 Range/Units 07:29 RBC (4.40-5.60) X 10*6/uL Hgb (13.0-17.0) g/dL Hct (39.6-50.0) % Plt Count (140-440) X 10*3/uL MPV (9.5-12.2) fL Lymphocytes # (0.90-5.00) X 10*3/uL Monocytes # (0.20-1.00) X 10*3/uL Carbon Dioxide 28.3 H (20.0-27.5) mmol/L Anion Gap 9.90 L (10.00-18.00) mmol/L BUN 35.6 H (9.0-27.0) mg/dL Est GFR (CKD-EPI)AfAm 54.7 L (60.0-200.0) Est GFR (CKD-EPI)NonAf 47.2 L (60.0-200.0) BUN/Creatinine Ratio 23.73 H (12.00-20.00) Ratio Glucose 200 H (70-110) mg/dL POC Glucose (mg/dL) (70-110) mg/dL Calcium 7.1 L (8.7-10.3) mg/dL
[2022-07-27] MEDS: ALVIMOPAN 12 MG CAPSULE PO SCH ×2 (13:23→22:17)
[2022-07-27] MEDS: SIMETHICONE 40 MG/0.6 ML DROPS 2,000 MG/30 ML BOTTLE PO SCH ×3 (13:23→22:23)
--- NOTE | 2022-07-27 14:52 | P.PN ---
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 Patient tried breathing treatments at home without much relief. Patient was tachycardic on admission with heart rate in 160s and was found to be SVT patient was given Ellenson in the ER. Otherwise denied any complaints of chest pain. No nausea vomiting or abdominal pain. Denied any increased leg swelling. No fever no chills. No prior history of SVT. Chest x-ray showed COPD. No active cardiopulmonary disease. Mild pulmonary fibrotic changes. No significant change. CTA chest showed no evidence of PE. Emphysema and mild pulmonary fibrosis. No suspicious pulmonary mass. Laboratory data showed WBC 16.0 hemoglobin 16.0 and platelets 269 Sodium 139 potassium four-point 102 bicarb is 20 BUN 16 and creatinine 0.87 and lactic acid 2.7 Troponin x1 negative and proBNP is 378 TSH 0.49 6 Coronavirus and influenza AMB not detected. Urinalysis is negative for infection. 07/08/2022 Patient continues to be monitored in intensive care unit mostly on BiPAP support but able to be weaned to 3 to 4 L of oxygen via nasal cannula. He is unsure when he has had bowel movement and has limited to no bowel sounds for this reason abdominal xray has been performed showing mildly distended small bowel loops and some segments of colon as well. Consider generalized ileus and difficult to exclude the possibility of a distal colonic obstruction. White blood cell count today 6.1, sodium 144, potassium 4.6, BUN 40, creatinine 0.99, blood glucose 150, magnesium 2.4. Procalcitonin 0.55. Vitals today, patient is afebrile, heart rate 71, blood pressure 121/64, 95% oxygen saturation. Patient has been maintained on dexmedetomidine for acute anxiety which is currently paused. Continues on IV Solu-Medrol, and bronchodilators. Patient is currently on IV cardizem gtt for tachycardia and will be transitioned to oral verapamil today, cardiology is following. 07/09/2022 Patient continues to be monitored in intensive care unit. White count elevated up to 12.4 today he has expiratory wheezing on exam changed from yesterday. Patient requiring bipap at 35% FiO2 currently. He did have low grade fever this morning 99 and is receiving acetaminophen as needed. chest xray today showing chronic emphysema and pulmonary fibrotic change. Procalcitonin level elevated at 0.55. IV ceftriaxone increased to 2 gram every 24 hours. Patient is continued on bronchodilators. Continues on IV solumedrol 60 mg q6h. Dexmedetomidine possibly being weaned off today, seroquel and haldol ordered with ativan as needed. Patient continues with significant abdominal distention and absent bowel sounds left lower quadrant. Did not receive lactulose yesterday. General surgery was consulted for further evaluation, currently placed NPO for possible ileus /bowel obstruction. He is hypertensive today with systolic in the 180s has been started on verapamil TID and also hydralazine 50 BID. Cardiology following. 07/10/2022 Patient evaluated today on BiPAP, fio2 has been increased to 40%, he is using accessory muscles to breath and appears quite aggitated. He is on combination of haldol, seroquel for this. Additionally, he was started on nicotine patch and clonidine patch. NG tube has been placed, patient has not had a BM. Abdominal Pelvis CT completed showing no CT evidence for small bowel obstruction. Patient also had follow up chest xray today showing COPD changes and no acute disease. Never the less he appears to have some respiratory distress requiring BiPAP. white count 11.7 today, sodium 149, BUN 47, creatinine 1.05, blood glucose 170s. Patient has been placed on amiodarone infusion and also heparin gtt as patient is unable to take oral medications currently. He continues on antibiotics. Continues on IV solumedrol. 07/11/2022 Patient is monitored in intensive care unit. Continues with NG tube. Tube feedings have been resumed with vital AF 1.2 with goal of 55 mls per hour. Currrently running at 20 mLs/hour. Patient has free water flush 30 mL every 4 hours, would like to increase free water and discontinue IV fluids. Sodium level today 148, potassium 4.1, chloride 110, BUN 51, creatinine 1.08. Blood glucose in the 240s and insulin has been increased. Patient is receiving lactulose, had fleet enema today. Has not had a BM this admission, bowel sounds in all 4 quadrants today. Amiodarone has been discontinued. Continues on oral verapamil. Heart rate is improving. Patient trialed on airvo 60/60 today. Chest xray showing no focal consolidation. 07/12/2022 Patient is evaluated in ICU, family at bedside. Continues on Airvo 60/60, reports non productive cough. Diffuse weakness. Abdomen distended seems worse than yesterday. Discussed with surgery. Tube feedings have been placed on hold and patient started on daily suppositories. Otherwise continues on empiric ceftriaxone. Chest xray showing COPD with possible underlying pulmonary vascular congestion. Sodium up to 150 today, nephrology consulted. Patient has been started on D5% water at 75 mls per hour. BUN 55 creatinine 1.22 today. Blood glucose 230s. Heart rate 120s today, blood pressure 130/91, remains afebrile. 07/13/2022 Patient continue in Intensive Care unit. Continues on Airvo 60/60. He reports breathing improved today less short of breath. Lung sounds have improved and increased aeration. Less congested. No BM yet, has been started on dulcolax suppository daily. Increased bowel sounds today and abdomen is less distended. Remains on IV ceftriaxone. White count normalized to 9.9. Sodium remains at 150, BUN 51, creatinine 1.21. Blood glucose 200s. hgb A1c found to be 6.5 consistent with diagnosis of diabetes mellitus type 2. Continues on levemir with sliding scale and scheduled novolog coverage. Remains afebrile, heart rate 87, blood pressure 177/91, oxygen saturation 95%. IV steroids have been decreased today. Continues on oral cardizem, oral verapamil. Continues on D5 water at 75 mls per hour. 07/14/2022 Patient continues to be monitored closely in intensive care unit. He continues on Airvo 45/60, has tolerated weaning and continues to report improvement in work of breathing. No wheezing noted on exam today has some coarse scattered ronchi. NG tube remains in place, he did have BM. Will discuss with surgery if NG tube can be discontinued. Will add nystatin swish today which can be applied manually versus swishing. Patient remains diffusely weak has been on bedrest. No breakdown noted on skin. Continues on oral amiodarone, verapamil, anticoagulated with eliquis. Patient has been maintained on empiric antibiotic coverage with IV ceftriaxone, tomorrow will be day 5. white count has normalized consider discontinuing antibiotics tomorrow. Patient is maintaining sinus rhythm today heart rate 80s, blood pressure 159/78, 93% oxygen saturation, has remained afebrile. Labs today are improving, white count remains within normal limits at 10.4, sodium 142, potassium 4.5, chloride normalized to 104, BUN 48, creatinine 1.08. Blood glucose 160s to 200s. IV fluids have been changed to D5 1/2 NS at 50. Repeat labs tomorrow. Multiple consultations following. PT/OT has been consulted. 07/15/22. Patient seen and examined. Daughter at the bedside. Patient continues to be on heated high flow oxygen. States he feels better. Denies any nausea, vomiting. Case discussed with nursing staff 07/16/22. Patient seen and examined. Stated that he had a panic attack this morning, currently doing much better. Breathing is improving. Denies any chest pain. Continues to be on heated high flow 07/17/22. Patient seen and examined. Continues to be on heated high flow. Does not look any acute distress. 07/18/22. Patient seen and examined. Patient is transferred out of ICU. Currently on 4 L of oxygen. Gets short of breath on exertion. Otherwise patient is doing better compared to yesterday 07/19. Patient seen and examined. Continues to be on 4 L of oxygen. Creatinine has bumped up to 1.9. Gets short of breath on exertion. Patient is very weak 07/20. Patient seen and examined. Still gets short of breath on minimal exertion. Denies any chest pain. Not very keen to get out of the bed. Explained to him that he needs to get out of the bed 07/21. Patient seen and examined. Currently sitting in the chair. States he feels better compared to yesterday. Still complaining of productive cough 07/22/2022 Patient monitored sitting up in chair today. He continues on 4L nasal cannula. Hypotensive today blood pressures in the 80s systolic. 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 Verapamil has been placed on hold. Creatinine increased up to 2.08 today, most likely from acute hypotensive episode. He continues in sinus rhythm heart rate in the 70s. Potassium 5.7, sodium 132. Sputum culture pending. 07/23/2022 Patient sitting up in chair today. No acute events overnight. He does report some dizziness. Blood pressure on the lower side throughout the evening and he received a 500 mL fluid bolus. Started on midodrine yesterday as well. Blood pressure improved to 110s/50s. Continues on 4L nasal cannula. Surgery has been following for reports of maroon colored stools which patient reports have resolved, and he is scheduled to undergo EGD colonoscopy . Hgb 11.2. Creatinine improved to 1.8 today. He continues with indwelling catheter. 07/24/2022 Patient resting in bed today. Started goLytely prep for EGD/colonoscopy tomorrow. Reports worsening shortness of breath today. He has scattered wheezing today. Patient would benefit from lasix which nephrology has ordered an IV dose x 1 today, 40 mg and will start oral lasix 40 mg daily tomorrow. Hemoglobin remains stable at 10.6, sodium 130, BUN 77, creatinine 1.6 today. Blood glucose in the 70s, monitor closely. Decreased levemir and scheduled insulin. Continues with indwelling catheter. Blood pressure improved, 108/69. Continues on midodrine. 07/25/2022 Patient is seen in follow-up today with family at the bedside currently scheduled to undergo colonoscopy with EGD with general surgery today. Patient is currently maintained on 2-4 L of oxygen via nasal cannula and recommend wean FiO2 as tolerated. Nephrology following inpatient is maintained on Lasix that has been transitioned oral and increasing today to 40 mg twice daily and recommending repeat labs. Sodium on the lower side. Patient is currently nothing by mouth and will resume diet once done with endoscopy. Patient to continue with indwelling Greenfield catheter and also strongly recommend aspiration precautions along with continuing to monitor Accu-Cheks before meals and at bedtime. Patient is afebrile denies worsening shortness of breath or chest pain. Will await endoscopy report. 07/26/2022 Patient is seen and evaluated today post EGD/colonoscopy. Per report there was a poor bowel prep although parts visualized of the colonoscopy with no evidence of GI bleed and possibly secondary to erosive esophagitis. Multiple biopsies were obtained and patient will need follow-up outpatient. Hemoglobin is stable with no evidence of bleeding noted. Patient with abdominal distention ordered CT abdomen which is currently pending for this morning. Currently NPO per surgery recommendations. Continued on oral lasix with nephrology following. Sodium continues to be low and kidney functions elevated. Patient is asking for advance in diet as he has not had any real food in days due to recent colonoscopy prep. 07/27/2022 Patient is seen today and reports to feeling hungry and less pain in the abdomen. Patient being followed by surgery and recommending abdominal xray. Patient is passing gas with no bowel movement as of yet. Patient is NPO currently until cleared by surgery. CT was concerning of cecal dilatation and some ascites. Encouraged increased activity as tolerated and PT daily. Patient with progressive weakness and prolonged hospitalizations would greatly benefit from ECF on discharge. Review of Systems Constitutional: No Reports of fatigue, denied any fever. Cardio vascular: denied any chest pain, palpitations Gastrointestinal: denied any nausea, vomiting, diarrhea, maroon stools resolved. passing gas, no bm yet, feels hungry Pulmonary: Reports shortness of breath although not any worse, no cough. Neurologic reports weakness All inpatient medications were reviewed and appropriate changes in these medications as dictated in the interval history and assessment and plan. PHYSICAL EXAMINATION: GENERAL: The patient is alert and oriented x3. Well developed, well nourished. Sitting up in the chair. Obese. HEENT: Pupils are round and equally reacting to light. EOMI. No scleral icterus. No conjunctival pallor. Normocephalic, atraumatic. No pharyngeal erythema. No thyromegaly. CARDIOVASCULAR: S1 and S2 muffled PULMONARY: Scattered, coarse lung sounds bilaterally. Faint bibasilar crackles. ABDOMEN: Soft, nontender, less distended, normoactive bowel sounds. No palpable organomegaly. Round, obese. MUSCULOSKELETAL: No joint swelling or deformity. EXTREMITIES: No cyanosis, clubbing, or pedal edema. NEUROLOGICAL: Gross neurological examination did not reveal any focal deficits. Diffuse generalized weakness. SKIN: No rashes. Assessment: Acute COPD exacerbation and tracheobronchitis, improving Acute hypoxemic respiratory failure secondary to above, has been weaned off BiPAP/Airvo support and currently on 4L nasal cannula SVT/Atrial fibrillation with rapid rate converted to normal sinus rhythm Hypertension currently hypotensive, improving on midodrine. Ruled out GI bleed On EGD colonoscopy, most likely erosive esophagitis Hypernatremia, resolved currently hyponatremic Metabolic acidosis resolved Acute kidney injury, initially resolved, creatinine elevated from hypotension and component of urinary retention Urinary retention with indwelling greenfield catheter cecal dilatation noted on CT Diabetes Mellitus type 2 A1C 6.5. Ileus, resolved BPH Prior history of smoking History of throat cancer and vocal cord status post radiation 2016 GI prophylaxis DVT prophylaxis Full Code Plan: Continue oxygen supplementation, currently on 2 L via NC, Pulmonary following and continued on pred taper and duoneb treatments. Patient with abdominal pain improvement and reports to passing gas and asking for a diet. Surgery following and abd xrays ordered and pending Surgery recommends NPO for now until images have been reviewed. Short term amiodarone therapy for one month and then discontinue per cardiology Patient started on midodrine, verapamil on hold. Continue Flomax, indwelling catheter EGD/Colonoscopy done per report shows a poor bowel prep with no evidence of GI bleeding in the colonoscopy and most likely secondary to erosive esophagitis and biopsies were obtained Oral Lasix daily 40 mg per nephrology Continues on oral steroid taper Subacute rehab on discharge when medically stable Recommend PT/OT daily Overall prognosis remains guarded. The impression and plan of care has been dictated as a scribe by Tiffanie Kauffman, nurse practitioner as directed. Dr. Joe MD I have performed a history and examination and MDM of this patient, discussed the same with the dictator, and will be documented as a scribe. Based on total visit time, I have performed more than 50% of the visit. Any additional findings or plans will be noted. Objective - Vital Signs Vital signs: Vital Signs Temp 97.6 F 07/27/22 02:00 Pulse 74 07/27/22 08:05 Resp 16 07/27/22 02:00 BP 118/65 07/27/22 02:00 Pulse Ox 93 L 07/27/22 02:00 FiO2 35 07/17/22 11:06 Intake & Output 07/26/22 07/27/22 07/27/22 18:59 06:59 18:59 Intake Total 240 Output Total 1300 4600 Balance -1060 -4600 Weight 81 kg Intake: Oral 240 Output: Urine 1300 4600 Other: Voiding Method Indwelling Catheter Indwelling Catheter # Bowel Movements 1 - Labs CBC & Chem 7: 07/27/22 07:29 07/27/22 07:29 Labs: Abnormal Lab Results - Last 24 Hours (Table) 07/26/22 07/26/22 07/26/22 Range/Units 09:21 11:34 16:38 POC Glucose (mg/dL) 230 H 221 H 64 L (70-110) mg/dL 07/26/22 07/26/22 07/27/22 Range/Units 16:52 17:58 02:10 POC Glucose (mg/dL) 59 L 132 H 142 H (70-110) mg/dL 07/27/22 Range/Units 05:53 POC Glucose (mg/dL) 201 H (70-110) mg/dL
--- NOTE | 2022-07-27 14:54 | XR ---
EXAMINATION TYPE: XR abdomen 2V DATE OF EXAM: 07/27/2022 COMPARISON: 07/08/2022 HISTORY: Ileus TECHNIQUE: 4 views FINDINGS: There is no sign of intestinal obstruction or pneumoperitoneum. There is some mild gaseous distended large bowel. There is gas down to the rectum. No pathologic calcification over the kidneys. There is contrast material in the large bowel. IMPRESSION: There is increased large bowel gas compared to the old exam and consistent with ileus. No free air.
[2022-07-27 16:28] LABS: Glucose,Whole Blood 138 mg/dL (70-110)
[2022-07-27 20:35] LABS: Glucose,Whole Blood 151 mg/dL (70-110)
[2022-07-27] MEDS: ATORVASTATIN 10 MG TAB PO SCH (22:18)
[2022-07-28 02:03] LABS: Glucose,Whole Blood 113 mg/dL (70-110)
[2022-07-28 06:22] LABS: Glucose,Whole Blood 69 mg/dL (70-110)
[2022-07-28] MEDS: INSULIN DETEMIR (LEVEMIR) 100 UNIT/ML SYR SQ SCH ×2 (06:25→22:01)
[2022-07-28] MEDS: INSULIN ASPART (NovoLOG) 100 UNIT/ML VIAL SQ SCH ×8 (06:25→22:01)
[2022-07-28] MEDS: MIDODRINE 5 MG TAB PO SCH ×3 (06:28→16:36)
[2022-07-28 06:34] LABS: Glucose,Whole Blood 78 mg/dL (70-110)
[2022-07-28 06:44] LABS: Glucose,Whole Blood 79 mg/dL (70-110)
[2022-07-28] MEDS: SYMBICORT 160-4.5 MCG INHALER INHALATION SCH ×2 (07:34→20:59)
[2022-07-28] MEDS: IPRATROPIUM-ALBUTEROL 3 ML NEB INHALATION SCH ×4 (07:34→20:59)
[2022-07-28] MEDS: predniSONE 10 MG TAB PO SCH (08:44)
[2022-07-28] MEDS: FUROSEMIDE 40 MG TAB PO SCH ×2 (08:44→16:36)
[2022-07-28] MEDS: ALVIMOPAN 12 MG CAPSULE PO SCH ×2 (08:45→22:54)
[2022-07-28] MEDS: FAMOTIDINE 20 MG TAB PO SCH (08:45)
[2022-07-28] MEDS: TAMSULOSIN 0.4 MG CAP.ER.24H PO SCH (08:45)
[2022-07-28] MEDS: AMIODARONE 200 MG TAB PO SCH ×2 (08:45→22:54)
[2022-07-28] MEDS: bisacodyL 10 MG SUPP RECTAL SCH (08:45)
[2022-07-28] MEDS: NYSTATIN 100,000 UNIT/ML SUSP 500,000 UNIT/5 ML CUP PO SCH ×4 (08:45→22:54)
[2022-07-28] MEDS: PANTOPRAZOLE 40 MG/10 ML VIAL IVP SCH (08:45)
[2022-07-28] MEDS: CALCIUM CARBONATE 500 MG CHEWABLE PO SCH ×3 (08:45→22:54)
[2022-07-28] MEDS: SIMETHICONE 40 MG/0.6 ML DROPS 2,000 MG/30 ML BOTTLE PO SCH ×4 (08:45→22:54)
[2022-07-28 11:35] LABS: Glucose,Whole Blood 199 mg/dL (70-110)
--- NOTE | 2022-07-28 13:49 | P.PN ---
Subjective Progress Note Date: 07/28/22 Family of bedside. Patient reports passing some flatus. Abdominal x-ray reviewed demonstrate moderate gaseous distention and ileus. Recommend nothing by mouth except ice chips and popsicles. Simethicone added for gaseous distention. Abdominal massage advised. Reassess with abdominal x-ray in 24 hours. For prolonged nothing by mouth status beyond 3 days may need TPN assessment. Objective - Vital Signs Vital signs: Vital Signs Temp 97.4 F L 07/28/22 08:00 Pulse 68 07/28/22 11:40 Resp 17 07/28/22 08:00 BP 117/65 07/28/22 08:00 Pulse Ox 99 07/28/22 08:00 FiO2 35 07/17/22 11:06 Intake & Output 07/27/22 07/28/22 07/28/22 18:59 06:59 18:59 Intake Total 100 Output Total 1500 675 Balance -1400 -675 Weight 79 kg Intake: Oral 100 Output: Urine 1500 675 Other: Voiding Method Indwelling Catheter Indwelling Catheter - Labs CBC & Chem 7: 07/27/22 07:29 07/27/22 07:29 Labs: Abnormal Lab Results - Last 24 Hours (Table) 07/27/22 07/27/22 07/28/22 Range/Units 16:27 20:33 02:02 POC Glucose (mg/dL) 138 H 151 H 113 H (70-110) mg/dL 07/28/22 07/28/22 Range/Units 06:20 11:34 POC Glucose (mg/dL) 69 L 199 H (70-110) mg/dL
--- NOTE | 2022-07-28 14:04 | P.PN ---
Subjective Patient is seen for follow-up for acute kidney injury Patient was noted to have significant urine retention and currently has an indwelling Rojas catheter. Systolic blood pressure was on the lower side around 91-85 mmHg. Improved with midodrine. 2100 mL of urine noted on 24-hour output Serum creatinine 1.5 yesterday. Being diuresed for volume overload. Objective - Vital Signs Vital signs: Vital Signs Temp 97.8 F 07/28/22 13:57 Pulse 75 07/28/22 13:57 Resp 18 07/28/22 13:57 BP 111/69 07/28/22 13:57 Pulse Ox 96 07/28/22 13:57 FiO2 35 07/17/22 11:06 Intake & Output 07/27/22 07/28/22 07/28/22 18:59 06:59 18:59 Intake Total 100 Output Total 1500 675 Balance -1400 -675 Weight 79 kg Intake: Oral 100 Output: Urine 1500 675 Other: Voiding Method Indwelling Catheter Indwelling Catheter - Exam Awake, comfortable, no acute distress Examination of the heart S1 and S2 Examination lungs decreased breath sounds at the bases Abdomen is soft nontender Examination lower extremity shows edema 2+ bilaterally 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 Acute kidney injury secondary to combination of low blood pressure as well as urine retention, currently with indwelling Rojas catheter. Blood pressure medications were reduced significantly, Blood pressure remains on the lower side. Started on midodrine. 2. Ileus. Resolved. 3. A. fib. Cardiology following. Rate controlled. 4. Diabetes mellitus. 5. Neurogenic bladder Rojas catheter inserted last night 07/20/2022, started on Flomax 6. Volume overload 7. Hyponatremia, hypervolemic status post Samsc[place] Plan: Continue with Lasix 40 mg twice daily Repeat labs in a.m. Consider decreasing Lasix depending on labs in a.m.
--- NOTE | 2022-07-28 15:09 | P.PN ---
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 The patient is currently being seen in the intensive care unit for alcohol withdrawal was and hypoxic respiratory failure. This morning, is awake and alert and there is no sign ificant agitation. He remains on high flow oxygen at 45 L with an FiO2 of 56%. His current pulse ox is around 89%. Note that he had a CT angiogram at time of admission that showed no evidence of any pulmonary embolism. It showed emphysema and mild portal fibrosis. His resting comfortably in bed. He has no significant shortness of breath at rest. The same time, the patient has been in normal sinus rhythm. Noted at the time of admission, he was in atrial fibrillation and he was treated with a Cardizem drip and currently is off the drip. He is also off Precedex for now. Neurologically, he is alert and oriented 3. His most recent chest x-ray from yesterday showing some atelectatic changes in the lung bases and emphysema. Otherwise no other major abnormalities are noted. In terms of treatment, the patient is currently on DuoNeb about treatments [id number], he is on Pulmicort Respules 1 mg twice a day, he is on IV Solu-Medrol 40 mg every 6 hours. Is also on performance 1 nevertheless treatment twice a day. He is covered with antibiotics and the patient is receiving Rocephin 2 g every 24 hours. His blood cultures from this admission is negative. The white cell count is at 12 with a hemoglobin of 14.7 and a platelet count of 188. BUN is 44 with a creatinine of 1.1 and sodium levels of 137. In terms of his viral screen, the patient had a negative Covid 19 infection. Influenza screen was negative at the time of admission. The patient is seen today 07/26/2022 in follow-up on the regular medical floor. Currently sitting up in a chair at the bedside. Eating lunch. He did undergo EGD and partial colonoscopy. Not completed due to poor prep. He was found to have duodenitis, antral gastritis, erosive esophagitis, diverticulosis. No active bleeding noted. Computed tomography scan of the abdomen today revealed generalized anasarca. Trace to small bilateral effusions with adjacent atelectasis. Trace to small abdominal ascites. Small to moderate anterior pericardial effusion. Cecal dilatation of 10.0 cm. There is contiguous air distention of the distal ileum up to 3.5 cm in the ascending and transverse colon up to 6.3 cm. Blood cultures revealed no growth. Sputum culture revealed no growth. White count 5.8. Hemoglobin 10.5. Platelets 129. Sodium 127. Potassium 3.7. BUN 41. Creatinine 1.21. Glucose 161. He remains on DuoNeb inhalations, Symbicort, prednisone taper. Oral diuretics. The patient is seen today 07/27/2022 in follow-up on the regular medical floor. He is currently sitting up in a chair at the bedside. Awake and alert in no acute distress. Maintaining O2 saturations in the 90s on 2 L/m per nasal cannula. Afebrile. Denies any worsening abdominal discomfort. Blood cultures revealed no growth. Sputum culture revealed no growth. White count 7.4. Hemoglobin 10.6. Sodium 137. Potassium 3.8. BUN 35. Creatinine 1.5. Glucose 200. He remains on DuoNeb inhalations, Symbicort, prednisone taper. Oral diuretics. Reevaluated today on 07/28/22, patient remains on the medical floor, doing well, he has no active pulmonary symptoms, however the patient continues to have abdominal distention and he had an abdominal film today suggestive of significant increase in large bowel gas, compared to previous exam, this is consistent with ileus, no free air noted. This is being addressed by surgery on the case. Again pulmonary-wu no active pulmonary symptoms. Patient remains on 2 L nasal cannula, and O2 saturations 96 up to 99%. He even denies any abdominal discomfort, he has no nausea no vomiting, patient is passing gas but no bowel movements. Objective - Vital Signs Vital signs: Vital Signs Temp 97.8 F 07/28/22 13:57 Pulse 75 07/28/22 13:57 Resp 18 07/28/22 13:57 BP 111/69 07/28/22 13:57 Pulse Ox 96 07/28/22 13:57 FiO2 35 07/17/22 11:06 Intake & Output 07/27/22 07/28/22 07/28/22 18:59 06:59 18:59 Intake Total 100 Output Total 1500 675 600 Balance -3636 -106 -600 Weight 79 kg Intake: Oral 100 Output: Urine 1500 675 600 Other: Voiding Method Indwelling Catheter Indwelling Catheter - Exam Physical Exam: Revealed a 66-year-old white male in no distress on 2 L nasal cannula Head: Atraumatic normocephalic. HEENT:[Neck is supple.] [No neck masses.] [No thyromegaly.] [No JVD.] Chest: [Clear throughout, no crackles, no rhonchi, no wheezes.] Cardiac Exam: [Normal S1 and S2, no S3 gallop, no murmur.] Abdomen: Slightly distended, soft, nontender, no megaly, no rebound, positive bowel sounds. Extremities: [No clubbing, no edema, no cyanosis.] Neurological Exam: [No focal neurologic deficit.] Alert oriented 3. Psychiatric: Normal mood affect and normal mental status examination. Skin: No rashes. - Labs CBC & Chem 7: 07/27/22 07:29 07/27/22 07:29 Labs: Abnormal Lab Results - Last 24 Hours (Table) 07/27/22 07/27/22 07/28/22 Range/Units 16:27 20:33 02:02 POC Glucose (mg/dL) 138 H 151 H 113 H (70-110) mg/dL 07/28/22 07/28/22 Range/Units 06:20 11:34 POC Glucose (mg/dL) 69 L 199 H (70-110) mg/dL Assessment and Plan Assessment: Acute hypoxemic respiratory failure secondary to COPD exacerbation and the patient presented with acute hypoxic and hypercapnic respiratory failure. Oxygenation has improved. Remains on 2 liters nasal cannula. Severe COPD and the patient has an FEV1 of 39% of predicted at baseline and this is based on spirometry that was done on 09/28/2020. The patient has been maintained on Advair and DuoNeb about treatments [id number].. Delirium, recovered Acute kidney injury and the creatinine is currently 1.4. GFR of 51 Acute tracheobronchitis. Recovered Supraventricular tachycardia/atrial fibrillation with RVR. Patient is currently on normal sinus rhythm. The patient is also on anticoagulation with Eliquis. The patient has a normal LV function History of laryngeal carcinoma, in remission, status post radiation treatment, d iagnosed in 2017. Acute hypercapnic respiratory failure secondary to severe COPD. GI bleed with positive stool for occult blood, current hemoglobin 10.6. Plans for EGD/colonoscopy revealed duodenitis, antral gastritis, erosive esophagitis, diverticulosis. No active bleeding. Possible ileus Recommendation: Continue bronchodilators Continue oxygen and titrate accordingly General surgery addressing his ileus and cecal dilation We will continue to follow for his underlying COPD. Time with Patient: Less than 30
[2022-07-28 16:18] LABS: Glucose,Whole Blood 158 mg/dL (70-110)
--- NOTE | 2022-07-28 17:38 | P.PN ---
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 Patient tried breathing treatments at home without much relief. Patient was tachycardic on admission with heart rate in 160s and was found to be SVT patient was given Ellenson in the ER. Otherwise denied any complaints of chest pain. No nausea vomiting or abdominal pain. Denied any increased leg swelling. No fever no chills. No prior history of SVT. Chest x-ray showed COPD. No active cardiopulmonary disease. Mild pulmonary fibrotic changes. No significant change. CTA chest showed no evidence of PE. Emphysema and mild pulmonary fibrosis. No suspicious pulmonary mass. Laboratory data showed WBC 16.0 hemoglobin 16.0 and platelets 269 Sodium 139 potassium four-point 102 bicarb is 20 BUN 16 and creatinine 0.87 and lactic acid 2.7 Troponin x1 negative and proBNP is 378 TSH 0.49 6 Coronavirus and influenza AMB not detected. Urinalysis is negative for infection. 07/08/2022 Patient continues to be monitored in intensive care unit mostly on BiPAP support but able to be weaned to 3 to 4 L of oxygen via nasal cannula. He is unsure when he has had bowel movement and has limited to no bowel sounds for this reason abdominal xray has been performed showing mildly distended small bowel loops and some segments of colon as well. Consider generalized ileus and difficult to exclude the possibility of a distal colonic obstruction. White blood cell count today 6.1, sodium 144, potassium 4.6, BUN 40, creatinine 0.99, blood glucose 150, magnesium 2.4. Procalcitonin 0.55. Vitals today, patient is afebrile, heart rate 71, blood pressure 121/64, 95% oxygen saturation. Patient has been maintained on dexmedetomidine for acute anxiety which is currently paused. Continues on IV Solu-Medrol, and bronchodilators. Patient is currently on IV cardizem gtt for tachycardia and will be transitioned to oral verapamil today, cardiology is following. 07/09/2022 Patient continues to be monitored in intensive care unit. White count elevated up to 12.4 today he has expiratory wheezing on exam changed from yesterday. Patient requiring bipap at 35% FiO2 currently. He did have low grade fever this morning 99 and is receiving acetaminophen as needed. chest xray today showing chronic emphysema and pulmonary fibrotic change. Procalcitonin level elevated at 0.55. IV ceftriaxone increased to 2 gram every 24 hours. Patient is continued on bronchodilators. Continues on IV solumedrol 60 mg q6h. Dexmedetomidine possibly being weaned off today, seroquel and haldol ordered with ativan as needed. Patient continues with significant abdominal distention and absent bowel sounds left lower quadrant. Did not receive lactulose yesterday. General surgery was consulted for further evaluation, currently placed NPO for possible ileus /bowel obstruction. He is hypertensive today with systolic in the 180s has been started on verapamil TID and also hydralazine 50 BID. Cardiology following. 07/10/2022 Patient evaluated today on BiPAP, fio2 has been increased to 40%, he is using accessory muscles to breath and appears quite aggitated. He is on combination of haldol, seroquel for this. Additionally, he was started on nicotine patch and clonidine patch. NG tube has been placed, patient has not had a BM. Abdominal Pelvis CT completed showing no CT evidence for small bowel obstruction. Patient also had follow up chest xray today showing COPD changes and no acute disease. Never the less he appears to have some respiratory distress requiring BiPAP. white count 11.7 today, sodium 149, BUN 47, creatinine 1.05, blood glucose 170s. Patient has been placed on amiodarone infusion and also heparin gtt as patient is unable to take oral medications currently. He continues on antibiotics. Continues on IV solumedrol. 07/11/2022 Patient is monitored in intensive care unit. Continues with NG tube. Tube feedings have been resumed with vital AF 1.2 with goal of 55 mls per hour. Currrently running at 20 mLs/hour. Patient has free water flush 30 mL every 4 hours, would like to increase free water and discontinue IV fluids. Sodium level today 148, potassium 4.1, chloride 110, BUN 51, creatinine 1.08. Blood glucose in the 240s and insulin has been increased. Patient is receiving lactulose, had fleet enema today. Has not had a BM this admission, bowel sounds in all 4 quadrants today. Amiodarone has been discontinued. Continues on oral verapamil. Heart rate is improving. Patient trialed on airvo 60/60 today. Chest xray showing no focal consolidation. 07/12/2022 Patient is evaluated in ICU, family at bedside. Continues on Airvo 60/60, reports non productive cough. Diffuse weakness. Abdomen distended seems worse than yesterday. Discussed with surgery. Tube feedings have been placed on hold and patient started on daily suppositories. Otherwise continues on empiric ceftriaxone. Chest xray showing COPD with possible underlying pulmonary vascular congestion. Sodium up to 150 today, nephrology consulted. Patient has been started on D5% water at 75 mls per hour. BUN 55 creatinine 1.22 today. Blood glucose 230s. Heart rate 120s today, blood pressure 130/91, remains afebrile. 07/13/2022 Patient continue in Intensive Care unit. Continues on Airvo 60/60. He reports breathing improved today less short of breath. Lung sounds have improved and increased aeration. Less congested. No BM yet, has been started on dulcolax suppository daily. Increased bowel sounds today and abdomen is less distended. Remains on IV ceftriaxone. White count normalized to 9.9. Sodium remains at 150, BUN 51, creatinine 1.21. Blood glucose 200s. hgb A1c found to be 6.5 consistent with diagnosis of diabetes mellitus type 2. Continues on levemir with sliding scale and scheduled novolog coverage. Remains afebrile, heart rate 87, blood pressure 177/91, oxygen saturation 95%. IV steroids have been decreased today. Continues on oral cardizem, oral verapamil. Continues on D5 water at 75 mls per hour. 07/14/2022 Patient continues to be monitored closely in intensive care unit. He continues on Airvo 45/60, has tolerated weaning and continues to report improvement in work of breathing. No wheezing noted on exam today has some coarse scattered ronchi. NG tube remains in place, he did have BM. Will discuss with surgery if NG tube can be discontinued. Will add nystatin swish today which can be applied manually versus swishing. Patient remains diffusely weak has been on bedrest. No breakdown noted on skin. Continues on oral amiodarone, verapamil, anticoagulated with eliquis. Patient has been maintained on empiric antibiotic coverage with IV ceftriaxone, tomorrow will be day 5. white count has normalized consider discontinuing antibiotics tomorrow. Patient is maintaining sinus rhythm today heart rate 80s, blood pressure 159/78, 93% oxygen saturation, has remained afebrile. Labs today are improving, white count remains within normal limits at 10.4, sodium 142, potassium 4.5, chloride normalized to 104, BUN 48, creatinine 1.08. Blood glucose 160s to 200s. IV fluids have been changed to D5 1/2 NS at 50. Repeat labs tomorrow. Multiple consultations following. PT/OT has been consulted. 07/15/22. Patient seen and examined. Daughter at the bedside. Patient continues to be on heated high flow oxygen. States he feels better. Denies any nausea, vomiting. Case discussed with nursing staff 07/16/22. Patient seen and examined. Stated that he had a panic attack this morning, currently doing much better. Breathing is improving. Denies any chest pain. Continues to be on heated high flow 07/17/22. Patient seen and examined. Continues to be on heated high flow. Does not look any acute distress. 07/18/22. Patient seen and examined. Patient is transferred out of ICU. Currently on 4 L of oxygen. Gets short of breath on exertion. Otherwise patient is doing better compared to yesterday 07/19. Patient seen and examined. Continues to be on 4 L of oxygen. Creatinine has bumped up to 1.9. Gets short of breath on exertion. Patient is very weak 07/20. Patient seen and examined. Still gets short of breath on minimal exertion. Denies any chest pain. Not very keen to get out of the bed. Explained to him that he needs to get out of the bed 07/21. Patient seen and examined. Currently sitting in the chair. States he feels better compared to yesterday. Still complaining of productive cough 07/22/2022 Patient monitored sitting up in chair today. He continues on 4L nasal cannula. Hypotensive today blood pressures in the 80s systolic. 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 Verapamil has been placed on hold. Creatinine increased up to 2.08 today, most likely from acute hypotensive episode. He continues in sinus rhythm heart rate in the 70s. Potassium 5.7, sodium 132. Sputum culture pending. 07/23/2022 Patient sitting up in chair today. No acute events overnight. He does report some dizziness. Blood pressure on the lower side throughout the evening and he received a 500 mL fluid bolus. Started on midodrine yesterday as well. Blood pressure improved to 110s/50s. Continues on 4L nasal cannula. Surgery has been following for reports of maroon colored stools which patient reports have resolved, and he is scheduled to undergo EGD colonoscopy . Hgb 11.2. Creatinine improved to 1.8 today. He continues with indwelling catheter. 07/24/2022 Patient resting in bed today. Started goLytely prep for EGD/colonoscopy tomorrow. Reports worsening shortness of breath today. He has scattered wheezing today. Patient would benefit from lasix which nephrology has ordered an IV dose x 1 today, 40 mg and will start oral lasix 40 mg daily tomorrow. Hemoglobin remains stable at 10.6, sodium 130, BUN 77, creatinine 1.6 today. Blood glucose in the 70s, monitor closely. Decreased levemir and scheduled insulin. Continues with indwelling catheter. Blood pressure improved, 108/69. Continues on midodrine. 07/25/2022 Patient is seen in follow-up today with family at the bedside currently scheduled to undergo colonoscopy with EGD with general surgery today. Patient is currently maintained on 2-4 L of oxygen via nasal cannula and recommend wean FiO2 as tolerated. Nephrology following inpatient is maintained on Lasix that has been transitioned oral and increasing today to 40 mg twice daily and recommending repeat labs. Sodium on the lower side. Patient is currently nothing by mouth and will resume diet once done with endoscopy. Patient to continue with indwelling Greenfield catheter and also strongly recommend aspiration precautions along with continuing to monitor Accu-Cheks before meals and at bedtime. Patient is afebrile denies worsening shortness of breath or chest pain. Will await endoscopy report. 07/26/2022 Patient is seen and evaluated today post EGD/colonoscopy. Per report there was a poor bowel prep although parts visualized of the colonoscopy with no evidence of GI bleed and possibly secondary to erosive esophagitis. Multiple biopsies were obtained and patient will need follow-up outpatient. Hemoglobin is stable with no evidence of bleeding noted. Patient with abdominal distention ordered CT abdomen which is currently pending for this morning. Currently NPO per surgery recommendations. Continued on oral lasix with nephrology following. Sodium continues to be low and kidney functions elevated. Patient is asking for advance in diet as he has not had any real food in days due to recent colonoscopy prep. 07/27/2022 Patient is seen today and reports to feeling hungry and less pain in the abdomen. Patient being followed by surgery and recommending abdominal xray. Patient is passing gas with no bowel movement as of yet. Patient is NPO currently until cleared by surgery. CT was concerning of cecal dilatation and some ascites. Encouraged increased activity as tolerated and PT daily. Patient with progressive weakness and prolonged hospitalizations would greatly benefit from ECF on discharge. 07/28/2022 Patient is seen in follow up and abd xray shows ileus with abdominal distention. Surgery following and will continue NPO with ice chips and popsicles. Repeat abd xray ordered for am. Recommend repeat labs as well. Continued with pulmonary and nephrology following as well. Patient is afebrile and denies worsening shortness of breath. Patient denies chest pain. Patient reports to feeling hungry. Review of Systems Constitutional: No Reports of fatigue, denied any fever. Cardio vascular: denied any chest pain, palpitations Gastrointestinal: denied any nausea, vomiting, or diarrhea, passing gas Pulmonary: no Reports of worsening shortness of breath Neurologic reports weakness All inpatient medications were reviewed and appropriate changes in these me dications as dictated in the interval history and assessment and plan. PHYSICAL EXAMINATION: GENERAL: The patient is alert and oriented x3. Well developed, well nourished. Sitting up in the chair. Obese. HEENT: Pupils are round and equally reacting to light. EOMI. No scleral icterus. No conjunctival pallor. Normocephalic, atraumatic. No pharyngeal erythema. No thyromegaly. CARDIOVASCULAR: S1 and S2 muffled PULMONARY: Scattered, coarse lung sounds bilaterally. Faint bibasilar crackles. ABDOMEN: Soft, nontender, less distended, normoactive bowel sounds. No palpable organomegaly. Round, obese. MUSCULOSKELETAL: No joint swelling or deformity. EXTREMITIES: No cyanosis, clubbing, or pedal edema. NEUROLOGICAL: Gross neurological examination did not reveal any focal deficits. Diffuse generalized weakness. SKIN: No rashes. Assessment: Acute COPD exacerbation and tracheobronchitis, improving Acute hypoxemic respiratory failure secondary to above, has been weaned off BiPAP/Airvo support and currently on 4L nasal cannula SVT/Atrial fibrillation with rapid rate converted to normal sinus rhythm Hypertension currently hypotensive, improving on midodrine. Ruled out GI bleed On EGD colonoscopy, most likely erosive esophagitis Hypernatremia, resolved currently hyponatremic Metabolic acidosis resolved Acute kidney injury, initially resolved, creatinine elevated from hypotension an d component of urinary retention Urinary retention with indwelling greenfield catheter cecal dilatation noted on CT Diabetes Mellitus type 2 A1C 6.5. Ileus, redemonstrated on recent xray 07/27/22 BPH Prior history of smoking History of throat cancer and vocal cord status post radiation 2016 GI prophylaxis DVT prophylaxis Full Code Plan: Continue oxygen supplementation, currently on 2 L via NC, Pulmonary following and continued on pred taper and duoneb treatments. Patient with abdominal pain improvement and reports to passing gas and asking for a diet. Surgery following and abd xrays ordered and concerned for ileus. Only ice chips and popsicles, repeat abd xray ordered for am. Short term amiodarone therapy for one month and then discontinue per cardiology Patient started on midodrine, verapamil on hold. Continue Flomax, indwelling catheter EGD/Colonoscopy done per report shows a poor bowel prep with no evidence of GI bleeding in the colonoscopy and most likely secondary to erosive esophagitis and biopsies were obtained Oral Lasix daily 40 mg per nephrology Continues on oral steroid taper Subacute rehab on discharge when medically stable Recommend PT/OT daily Overall prognosis remains guarded. The impression and plan of care has been dictated as a scribe by Tiffanie Kauffman, nurse practitioner as directed. Dr. Joe MD I have performed a history and examination and MDM of this patient, discussed the same with the dictator, and will be documented as a scribe. Based on total visit time, I have performed more than 50% of the visit. Any additional findings or plans will be noted. Objective - Vital Signs Vital signs: Vital Signs Temp 97.8 F 07/28/22 13:57 Pulse 67 07/28/22 15:38 Resp 18 07/28/22 13:57 BP 111/69 07/28/22 13:57 Pulse Ox 96 07/28/22 13:57 FiO2 35 07/17/22 11:06 Intake & Output 07/27/22 07/28/22 07/28/22 18:59 06:59 18:59 Intake Total 100 Output Total 1500 675 600 Balance -5050 -355 -600 Weight 79 kg Intake: Oral 100 Output: Urine 1500 675 600 Other: Voiding Method Indwelling Catheter Indwelling Catheter - Labs CBC & Chem 7: 07/27/22 07:29 07/27/22 07:29 Labs: Abnormal Lab Results - Last 24 Hours (Table) 07/27/22 07/28/22 07/28/22 Range/Units 20:33 02:02 06:20 POC Glucose (mg/dL) 151 H 113 H 69 L (70-110) mg/dL 07/28/22 07/28/22 Range/Units 11:34 16:17 POC Glucose (mg/dL) 199 H 158 H (70-110) mg/dL
[2022-07-28 19:33] LABS: Glucose,Whole Blood 118 mg/dL (70-110)
[2022-07-28] MEDS: ATORVASTATIN 10 MG TAB PO SCH (22:54)
[2022-07-29 01:44] LABS: Glucose,Whole Blood 174 mg/dL (70-110)
[2022-07-29 06:37] LABS: Glucose,Whole Blood 151 mg/dL (70-110)
[2022-07-29] MEDS: INSULIN ASPART (NovoLOG) 100 UNIT/ML VIAL SQ SCH ×8 (06:38→21:06)
[2022-07-29] MEDS: INSULIN DETEMIR (LEVEMIR) 100 UNIT/ML SYR SQ SCH ×2 (06:38→21:02)
[2022-07-29] MEDS: ALVIMOPAN 12 MG CAPSULE PO SCH ×2 (08:20→21:01)
[2022-07-29] MEDS: TAMSULOSIN 0.4 MG CAP.ER.24H PO SCH (08:20)
[2022-07-29] MEDS: CALCIUM CARBONATE 500 MG CHEWABLE PO SCH ×3 (08:20→21:01)
[2022-07-29] MEDS: bisacodyL 10 MG SUPP RECTAL SCH (08:20)
[2022-07-29] MEDS: AMIODARONE 200 MG TAB PO SCH ×2 (08:20→21:01)
[2022-07-29] MEDS: SIMETHICONE 40 MG/0.6 ML DROPS 2,000 MG/30 ML BOTTLE PO SCH ×4 (08:20→21:06)
[2022-07-29] MEDS: PANTOPRAZOLE 40 MG/10 ML VIAL IVP SCH (08:21)
[2022-07-29] MEDS: NYSTATIN 100,000 UNIT/ML SUSP 500,000 UNIT/5 ML CUP PO SCH ×4 (08:21→21:01)
[2022-07-29] MEDS: FAMOTIDINE 20 MG TAB PO SCH (08:21)
[2022-07-29] MEDS: MIDODRINE 5 MG TAB PO SCH ×3 (08:21→16:58)
[2022-07-29] MEDS: predniSONE 10 MG TAB PO SCH (08:21)
[2022-07-29] MEDS: FUROSEMIDE 40 MG TAB PO SCH ×2 (08:21→16:58)
--- NOTE | 2022-07-29 08:29 | XR ---
EXAMINATION TYPE: XR abdomen 2V DATE OF EXAM: 07/29/2022 6:28 AM INDICATION: Patient age:Male; 66 years old; Reason for study: ileus; COMPARISON: CT 07/26/2022.. TECHNIQUE: Two views of the abdomen were obtained. FINDINGS: Gaseous distention of the large bowel most pronounced in the right lower quadrant. Oral con trast within the visualized bowel. There is COPD changes to the lungs which are partially visualized. Scattered atherosclerosis of the arterial vasculature. IMPRESSION: 1. Persistent gaseous dilation throughout the bowel gas seen on prior CT. Findings correlate with pr ovided history of ileus. 2. COPD changes.
[2022-07-29] MEDS: IPRATROPIUM-ALBUTEROL 3 ML NEB INHALATION SCH ×4 (08:35→21:09)
[2022-07-29] MEDS: SYMBICORT 160-4.5 MCG INHALER INHALATION SCH ×2 (08:35→21:09)
[2022-07-29 10:04] LABS: Basophils % (A) 0 %; Eosinophils # (A) 0.1 k/uL (0-0.7); Eosinophils % (A) 3 %; HCT 29.2 % (39.0-53.0); Lymphocytes # (A) 0.6 k/uL (1.0-4.8); Lymphocytes % (A) 14 %; MCH 30.4 pg (25.0-35.0); MCHC 34.4 g/dL (31.0-37.0); MCV 88.3 fL (80.0-100.0); Mean Platelet Volume 7.7; Monocytes # (A) 0.1 k/uL (0-1.0); Monocytes % (A) 2 %; Neutrophils # (A) 3.4 k/uL (1.3-7.7); Neutrophils % (A) 79 %; Platelet Count 104 k/uL (150-450); RBC 3.31 m/uL (4.30-5.90); RDW 12.1 % (11.5-15.5); WBC 4.3 k/uL (3.8-10.6)
[2022-07-29 10:11] LABS: African American GFR (CKD) 60 (>60 ml/min/1.73 sqM); Anion Gap 2 mmol/L; Blood Urea Nitrogen 34 mg/dL (9-20); Calcium 7.3 mg/dL (8.4-10.2); Carbon Dioxide 34 mmol/L (22-30); Chloride 94 mmol/L (98-107); Glucose 155 mg/dL (74-99); Non-African American GFR(CKD) 52 (>60 ml/min/1.73 sqM); Potassium 3.3 mmol/L (3.5-5.1); Sodium 130 mmol/L (137-145)
[2022-07-29] MEDS ORDERED: Potassium Replacement Protocol 1 EACH MISC MISCELLANE PRN (10:22)
--- NOTE | 2022-07-29 11:23 | P.PN ---
Subjective Nephrology was reconsulted due to acute kidney injury. Renal function fairly stable. Currently nothing by mouth. Denies chest pain or shortness of breath. No abdominal pain. Nonoliguric. On oral Lasix. Vital signs are stable. General: Awake. No acute distress. HEENT: Head exam is unremarkable. LUNGS: Breath sounds decreased. HEART: Rate and Rhythm are regular. ABDOMEN: Soft, distention noted. EXTREMITITES: Trace edema. Objective - Vital Signs Vital signs: Vital Signs Temp 99.2 F 07/29/22 08:00 Pulse 68 07/29/22 08:45 Resp 18 07/29/22 08:00 BP 107/62 07/29/22 08:00 Pulse Ox 91 L 07/29/22 08:00 FiO2 35 07/17/22 11:06 Intake & Output 07/28/22 07/29/22 07/29/22 18:59 06:59 18:59 Output Total 600 1400 Balance -600 -1400 Weight 82.5 kg Output: Urine 600 1400 Other: Voiding Method Indwelling Catheter Indwelling Catheter Indwelling Catheter - Labs CBC & Chem 7: 07/29/22 09:14 07/29/22 09:14 Labs: Abnormal Lab Results - Last 24 Hours (Table) 07/28/22 07/28/22 07/28/22 Range/Units 11:34 16:17 19:32 RBC (4.30-5.90) m/uL Hgb (13.0-17.5) gm/dL Hct (39.0-53.0) % Plt Count (150-450) k/uL Lymphocytes # (1.0-4.8) k/uL Sodium (137-145) mmol/L Potassium (3.5-5.1) mmol/L Chloride (98-107) mmol/L Carbon Dioxide (22-30) mmol/L BUN (9-20) mg/dL Creatinine (0.66-1.25) mg/dL Glucose (74-99) mg/dL POC Glucose (mg/dL) 199 H 158 H 118 H (70-110) mg/dL Calcium (8.4-10.2) mg/dL 07/29/22 07/29/22 07/29/22 Range/Units 01:43 06:35 09:14 RBC 3.31 L (4.30-5.90) m/uL Hgb 10.0 L (13.0-17.5) gm/dL Hct 29.2 L (39.0-53.0) % Plt Count 104 L (150-450) k/uL Lymphocytes # 0.6 L (1.0-4.8) k/uL Sodium (137-145) mmol/L Potassium (3.5-5.1) mmol/L Chloride (98-107) mmol/L Carbon Dioxide (22-30) mmol/L BUN (9-20) mg/dL Creatinine (0.66-1.25) mg/dL Glucose (74-99) mg/dL POC Glucose (mg/dL) 174 H 151 H (70-110) mg/dL Calcium (8.4-10.2) mg/dL 07/29/22 Range/Units 09:14 RBC (4.30-5.90) m/uL Hgb (13.0-17.5) gm/dL Hct (39.0-53.0) % Plt Count (150-450) k/uL Lymphocytes # (1.0-4.8) k/uL Sodium 130 L (137-145) mmol/L Potassium 3.3 L (3.5-5.1) mmol/L Chloride 94 L (98-107) mmol/L Carbon Dioxide 34 H (22-30) mmol/L BUN 34 H (9-20) mg/dL Creatinine 1.39 H (0.66-1.25) mg/dL Glucose 155 H (74-99) mg/dL POC Glucose (mg/dL) (70-110) mg/dL Calcium 7.3 L (8.4-10.2) mg/dL Assessment and Plan Plan: Assessment: 1. Acute kidney injury secondary to hemodynamic ATN. Renal function stable. Creatinine 1.39 today. No hydronephrosis noted on CAT scan. 2. Ileus. Surgery following. 3. A. fib. Cardiology following. Rate controlled. On oral amiodarone. 4. Diabetes mellitus. 5. Volume overload. Maintained on Lasix. 6. Urinary retention. Has Rojas catheter. On Flomax. 7. Hypokalemia from diuresis. 8. Hyponatremia. Hypervolemic. Plan: Replace potassium. Continue to monitor renal function and urine output. Avoid nephrotoxins. Attempt trial of void tomorrow. Repeat Samsca today. Check magnesium level as well. mag
[2022-07-29 11:53] LABS: Glucose,Whole Blood 275 mg/dL (70-110)
[2022-07-29] MEDS: POTASSIUM CHLORIDE 10 MEQ in WATER FOR INJECTION 1 100ML.BAG IVPB SCH ×4 (11:58→16:58)
[2022-07-29] MEDS ORDERED: TOLVAPTAN 15 MG 1/2 TABLET PO ONE (12:00)
--- NOTE | 2022-07-29 14:21 | P.PN ---
Subjective Progress Note Date: 07/29/22 CHIEF COMPLAINT: Ileus in HISTORY OF PRESENT ILLNESS: Patient admitted to the hospital with shortness of breath evidence of COPD exacerbation, bronchitis and SVT. Surgical service initially consulted regarding an abdominal ileus. The ileus resolved. Surgical service had been re-consulted in regards to GIB. Patient is status post EGD and colonoscopy results demonstrated duodenitis, antral gastritis, erosive esophagitis and diverticulosis. He did have a poor prep. Denies any nausea or vomiting. He reports occasional discomfort in the left lower quadrant. Currently no pain. He did have a bowel movement yesterday. Abdominal x-ray have persisting case gaseous dilation throughout the bowel gas seen on prior CT. Findings correlate with history of ileus. Patient seen and examined with Dr. Jim PHYSICAL EXAM: VITAL SIGNS: Reviewed. GENERAL: Well-developed in no acute distress. ABDOMEN: Soft. distended. Nontender NEUROLOGIC: Awake and alert ASSESSMENT: 1. GI bleed resolved. Likely due to erosive esophagitis 2. Ileus 2. Acute COPD exacerbation with acute hypoxic respiratory failure 3. 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 Signing provider agrees with the documented findings, assessment, and plan of care. Objective - Vital Signs Vital signs: Vital Signs Temp 99.2 F 07/29/22 08:00 Pulse 72 07/29/22 12:15 Resp 18 07/29/22 08:00 BP 107/62 07/29/22 08:00 Pulse Ox 91 L 07/29/22 08:00 FiO2 35 07/17/22 11:06 Intake & Output 07/28/22 07/29/22 07/29/22 18:59 06:59 18:59 Output Total 600 1400 Balance -600 -1400 Weight 82.5 kg Output: Urine 600 1400 Other: Voiding Method Indwelling Catheter Indwelling Catheter Indwelling Catheter - Labs CBC & Chem 7: 07/29/22 09:14 07/29/22 09:14 Labs: Abnormal Lab Results - Last 24 Hours (Table) 07/28/22 07/28/22 07/29/22 Range/Units 16:17 19:32 01:43 RBC (4.30-5.90) m/uL Hgb (13.0-17.5) gm/dL Hct (39.0-53.0) % Plt Count (150-450) k/uL Lymphocytes # (1.0-4.8) k/uL Sodium (137-145) mmol/L Potassium (3.5-5.1) mmol/L Chloride (98-107) mmol/L Carbon Dioxide (22-30) mmol/L BUN (9-20) mg/dL Creatinine (0.66-1.25) mg/dL Glucose (74-99) mg/dL POC Glucose (mg/dL) 158 H 118 H 174 H (70-110) mg/dL Calcium (8.4-10.2) mg/dL 07/29/22 07/29/22 07/29/22 Range/Units 06:35 09:14 09:14 RBC 3.31 L (4.30-5.90) m/uL Hgb 10.0 L (13.0-17.5) gm/dL Hct 29.2 L (39.0-53.0) % Plt Count 104 L (150-450) k/uL Lymphocytes # 0.6 L (1.0-4.8) k/uL Sodium 130 L (137-145) mmol/L Potassium 3.3 L (3.5-5.1) mmol/L Chloride 94 L (98-107) mmol/L Carbon Dioxide 34 H (22-30) mmol/L BUN 34 H (9-20) mg/dL Creatinine 1.39 H (0.66-1.25) mg/dL Glucose 155 H (74-99) mg/dL POC Glucose (mg/dL) 151 H (70-110) mg/dL Calcium 7.3 L (8.4-10.2) mg/dL 07/29/22 Range/Units 11:51 RBC (4.30-5.90) m/uL Hgb (13.0-17.5) gm/dL Hct (39.0-53.0) % Plt Count (150-450) k/uL Lymphocytes # (1.0-4.8) k/uL Sodium (137-145) mmol/L Potassium (3.5-5.1) mmol/L Chloride (98-107) mmol/L Carbon Dioxide (22-30) mmol/L BUN (9-20) mg/dL Creatinine (0.66-1.25) mg/dL Glucose (74-99) mg/dL POC Glucose (mg/dL) 275 H (70-110) mg/dL Calcium (8.4-10.2) mg/dL
--- NOTE | 2022-07-29 15:00 | P.PN ---
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 The patient is currently being seen in the intensive care unit for alcohol withdrawal was and hypoxic respiratory failure. This morning, is awake and alert and there is no significant agitation. He remains on high flow oxygen at 45 L with an FiO2 of 56%. His current pulse ox is around 89%. Note that he had a CT angiogram at time of admission that showed no evidence of any pulmonary embolism. It showed emphysema and mild portal fibrosis. His resting comfortably in bed. He has no significant shortness of breath at rest. The same time, the patient has been in normal sinus rhythm. Noted at the time of admission, he was in atrial fibrillation and he was treated with a Cardizem drip and currently is off the drip. He is also off Precedex for now. Neurologically, he is alert and oriented 3. His most recent chest x-ray from yesterday showing some atelec tatic changes in the lung bases and emphysema. Otherwise no other major abnormalities are noted. In terms of treatment, the patient is currently on DuoNeb about treatments [id number], he is on Pulmicort Respules 1 mg twice a day, he is on IV Solu-Medrol 40 mg every 6 hours. Is also on performance 1 nevertheless treatment twice a day. He is covered with antibiotics and the patient is receiving Rocephin 2 g every 24 hours. His blood cultures from this admission is negative. The white cell count is at 12 with a hemoglobin of 14.7 and a platelet count of 188. BUN is 44 with a creatinine of 1.1 and sodium levels of 137. In terms of his viral screen, the patient had a negative Covid 19 infection. Influenza screen was negative at the time of admission. On today's evaluation of 07/16/2022, the patient remains on high flow oxygen at 45 L with an FiO2 of 50%. The patient is feeling better and less short of breath compared to yesterday. No significant cough or sputum production. The patient was offered an incentive spirometer and the patient is able to generate adequate volumes on the incentive spirometer, nevertheless, the values remain less than 500 mL. The patient is on IV Rocephin. The patient was growing Haemophilus influenza in his sputum. At the same time, the patient remains on bronchodilators and he is on DuoNeb neb blotchiness 4 times a day, he is on a combination of Perforomist and Pulmicort neb less treatments twice a day and IV Solu-Medrol and the doses 40 mg IV every 6 hours. He was started on diuretics and to dose of Lasix will be given to him today. In terms of his blood work, his sodium level is at 137 with a potassium level of 4.4, BUN of 44 with a creatinine of 1.05 with RBC count of 12 a hemoglobin 14.8 and a platelet count of 148. LFTs are essentially within normal limits. On today's evaluation of 07/17/2022, the patient has no specific complaints. The patient is gradually improving. This morning, the patient was weaned down to 40 liters with an FiO2 of 35% high flow oxygen. The patient is otherwise doing well. He is using the incentive spirometer. He is still coughing and his cough is congested. Unable to bring up much sputum. He was diuresis yesterday and he has been negative fluid balance for now. BUN is a 53 with a creatinine of 1.29 his sodium levels is 135. The patient's WBC count is at 16.4 with a hemoglobin of 14.5. Remains on DuoNeb about treatments [id number]. Remains on IV Solu-Medrol. No altered mentation. No chest pain. Remains quite weak and his been having generalized global weakness. He is on Levemir 14 units daily twice a day and the patient is on NovoLog 40 units with meals and a sliding scale coverage. No altered mentation. No other new complaints. 07/18/2022, patient is doing well. The patient has been taken off the high flow oxygen the patient is currently on 4 L of O2 nasal cannula. No new complaints. IV Solu-Medrol was then tapered down to 20 mg every 8 hours. Limited cough. No significant congestion. So bronchospastic and wheezy. Air entry is quite limited in the lung bases bilaterally. He has advanced COPD.Transferred out of the intensive care unit yesterday. He is using the incentive spirometer. On his blood work, the patient has a white cell count of 8.9 with a hemoglobin of 12.4 count of 264. The patient has a BUN of 17 with a creatinine of 0.6 and his sodium level is 145. LFTs are normal. On 07/19/2022, I'm seeing the patient for a follow-up. The patient is currently on 4 L of oxygen by nasal cannula. No new complaints. He remains on IV Solu- Medrol 40 mg every 6 hours. He remains on DuoNeb about treatments on the clock. He is still very weak and he may need rehabilitation. He was transferred out of the intensive care unit few days back. echoes at 70 with a hemoglobin of 15.3 and a platelet count of 202. BUN is at 80 with a creatinine of 1.9 and there is a slight rise in the creatinine compared to yesterday's blood work. This is probably related to diuresis. 07/20/2022, the patient is still on 4 L of Oxymizer nasal cannula. Overall respiratory status is stable. Nevertheless, the patient was having some issues with obstructive uropathy. The career center director was consulted. The patient is having frequent bladder scans. Flomax was also added to the regimen at a dose of 0.4 mg on a daily basis. The patient's creatinine currently is at 1.9 and the BUN is 89 with a sodium level of 133. Diuretics were held. echoes at 60 with a hemoglobin 12.7. Potassium is at 4.8. LFTs are normal. The patient remains on DuoNeb about treatments [id number]. The patient remains on IV Solu-Medrol at a dose of 40 mg every 6 hours. No diuretics for now. 07/21/2022, the patient remains on 4 L of O2 nasal cannula. He was able to sit up on a recliner for next 10. Time yesterday. He stated a Rojas catheter in place. Creatinine is being monitored. he remains on DuoNeb neb on the clock is also on IV Solu-Medrol was tapered down to 40 mg every 6 hours. The patient started developing some colored mucus and for that reason, another sputum analysis will be done today. His tolerating diet. His oral intake is gradually improving. He is quite weak and debilitated. He may need an ECF placement at a later stage. No other new complaints for now. Family is at the bedside. I lengthy discussion with the patient's family The blood work from today shows a white cell count of 12.4 with a hemoglobin of 11.8. Sodium is at 131, BUN is 97 with a creatinine of 1.85 and the rest of the liver function tests are essentially within normal limits. The patient is seen today 07/22/2022 in follow-up on the regular medical floor. He is currently sitting up in a chair at the bedside. Awake and alert in no acu te distress. Maintaining O2 saturations in the 90s on 4 L/m per nasal cannula. Blood cultures revealed no growth. Sputum culture pending. White count 13.7. Hemoglobin 12.6. Sodium 132. Potassium 5.7. Bicarb 28. BUN 105. Creatinine 2.08. Glucose 139. He is continued on DuoNeb inhalations, Pulmicort and Perforomist inhalations, prednisone taper. The patient is seen today 07/23/2022 in follow-up on the regular medical floor. He is awake and alert in no acute distress. Sitting up in a chair at the bedside. Maintaining O2 saturations in the 90s on 4 L/m per nasal cannula. Blood and sputum cultures revealed no growth. White count 11.8. Hemoglobin 11.2. Sodium 129. Potassium 4.7. BUN 103. Creatinine 1.86. Glucose 77. Remains on DuoNeb inhalations, Pulmicort and Perforomist inhalations, prednisone taper. The patient's stool was positive for occult blood. The plan is for EGD/colonoscopy on 07/25/2022. Currently on a clear liquid diet. The patient is seen today 07/24/2022 in follow-up on the regular medical floor. Currently sitting up in a chair at the bedside. Awake and alert in no acute distress. He is maintaining good O2 saturations in the 90s on 4 L/m per nasal cannula. No worsening shortness of breath, cough or congestion. White count 8.9. Hemoglobin 10.6. Sodium 130. Potassium 4.8. BUN 77. Creatinine 1.6. Glucose 70. He received Lasix 40 mg IVP 1 today. Currently in a negative balance. Remains on DuoNeb inhalations, Pulmicort and Perforomist inhalations, prednisone taper. He is awaiting a EGD/colonoscopy tomorrow. The patient is seen today 07/25/2022 in follow-up on the regular medical floor. He is awake and alert in no acute distress. Currently sitting up in bed. He was having some issues with emesis earlier. Clear fluid returned. He has been on a bowel prep. He is currently maintaining O2 saturations in the high 90s on 4 L nasal cannula. His lung sounds are clear. No shortness of breath, cough or congestion. Sputum culture revealed no growth. Sodium 129. Potassium 4.0. BUN 66. Creatinine 1.40. He remains on Symbicort, DuoNeb inhalations. Oral diuretics. Prednisone taper. Plan is for EGD/colonoscopy today. The patient is seen today 07/26/2022 in follow-up on the regular medical floor. Currently sitting up in a chair at the bedside. Eating lunch. He did undergo EGD and partial colonoscopy. Not completed due to poor prep. He was found to have duodenitis, antral gastritis, erosive esophagitis, diverticulosis. No active bleeding noted. Computed tomography scan of the abdomen today revealed g eneralized anasarca. Trace to small bilateral effusions with adjacent atelectasis. Trace to small abdominal ascites. Small to moderate anterior pericardial effusion. Cecal dilatation of 10.0 cm. There is contiguous air distention of the distal ileum up to 3.5 cm in the ascending and transverse colon up to 6.3 cm. Blood cultures revealed no growth. Sputum culture revealed no growth. White count 5.8. Hemoglobin 10.5. Platelets 129. Sodium 127. Potassium 3.7. BUN 41. Creatinine 1.21. Glucose 161. He remains on DuoNeb inhalations, Symbicort, prednisone taper. Oral diuretics. The patient is seen today 07/27/2022 in follow-up on the regular medical floor. He is currently sitting up in a chair at the bedside. Awake and alert in no acute distress. Maintaining O2 saturations in the 90s on 2 L/m per nasal cannula. Afebrile. Denies any worsening abdominal discomfort. Blood cultures revealed no growth. Sputum culture revealed no growth. White count 7.4. Hemoglobin 10.6. Sodium 137. Potassium 3.8. BUN 35. Creatinine 1.5. Glucose 200. He remains on DuoNeb inhalations, Symbicort, prednisone taper. Oral diuretics. The patient is seen today 07/29/2022 in follow-up on the regular medical floor. He is awake and alert in no acute distress. Sitting up in bed. Maintaining O2 saturations in the 90s on 2 L/m per nasal cannula. Abdominal x-ray reveals persistent gaseous dilatation throughout the bowel seen on prior CT. Findings correlate with ileus. Evidence of COPD. Sputum culture revealed no growth. Blood cultures revealed no growth. White count 4.3. Hemoglobin 10.0. Sodium 1:30. Potassium 3.3. BUN 34. Creatinine 1.39. Glucose 155. He is continued on Symbicort, DuoNeb inhalations, prednisone taper. Surgical services are on the case. Diet is advanced to liquids. Objective - Vital Signs Vital signs: Vital Signs Temp 99.2 F 07/29/22 08:00 Pulse 72 07/29/22 12:15 Resp 18 07/29/22 08:00 BP 107/62 07/29/22 08:00 Pulse Ox 91 L 07/29/22 08:00 FiO2 35 07/17/22 11:06 Intake & Output 07/28/22 07/29/22 07/29/22 18:59 06:59 18:59 Output Total 600 1400 Balance -600 -1400 Weight 82.5 kg 82.5 kg Output: Urine 600 1400 Other: Voiding Method Indwelling Catheter Indwelling Catheter Indwelling Catheter - Exam Alert, 66-year-old male, sitting up in bed, no acute distress, currently on 2 L nasal cannula. HEENT examination is grossly unremarkable. Neck supple. Full range of motion. No adenopathy thyromegaly or neck vein distention. Cardiovascular examination reveals regular rhythm rate. S1-S2 normal. No S3 or S4. No discernible murmur noted. Heart sounds are distant. Lungs reveal no crackles, wheeze or rhonchi. Diminished Abdomen , obese, soft, hypoactive bowel sounds. No masses or tenderness. Extremities are intact. No cyanosis clubbing or edema. Skin is without rash or lesion.Examination of the skin revealed no evidence of significant rashes, suspicious appearing nevi or other concerning lesions. Neurologic examination Neurologically, the patient is awake and alert and the patient does not have any focal neurological deficit. Cranial nerves are essentially intact. - Labs CBC & Chem 7: 07/29/22 09:14 07/29/22 09:14 Labs: Abnormal Lab Results - Last 24 Hours (Table) 07/28/22 07/28/22 07/29/22 Range/Units 16:17 19:32 01:43 RBC (4.30-5.90) m/uL Hgb (13.0-17.5) gm/dL Hct (39.0-53.0) % Plt Count (150-450) k/uL Lymphocytes # (1.0-4.8) k/uL Sodium (137-145) mmol/L Potassium (3.5-5.1) mmol/L Chloride (98-107) mmol/L Carbon Dioxide (22-30) mmol/L BUN (9-20) mg/dL Creatinine (0.66-1.25) mg/dL Glucose (74-99) mg/dL POC Glucose (mg/dL) 158 H 118 H 174 H (70-110) mg/dL Calcium (8.4-10.2) mg/dL 07/29/22 07/29/22 07/29/22 Range/Units 06:35 09:14 09:14 RBC 3.31 L (4.30-5.90) m/uL Hgb 10.0 L (13.0-17.5) gm/dL Hct 29.2 L (39.0-53.0) % Plt Count 104 L (150-450) k/uL Lymphocytes # 0.6 L (1.0-4.8) k/uL Sodium 130 L (137-145) mmol/L Potassium 3.3 L (3.5-5.1) mmol/L Chloride 94 L (98-107) mmol/L Carbon Dioxide 34 H (22-30) mmol/L BUN 34 H (9-20) mg/dL Creatinine 1.39 H (0.66-1.25) mg/dL Glucose 155 H (74-99) mg/dL POC Glucose (mg/dL) 151 H (70-110) mg/dL Calcium 7.3 L (8.4-10.2) mg/dL 07/29/22 Range/Units 11:51 RBC (4.30-5.90) m/uL Hgb (13.0-17.5) gm/dL Hct (39.0-53.0) % Plt Count (150-450) k/uL Lymphocytes # (1.0-4.8) k/uL Sodium (137-145) mmol/L Potassium (3.5-5.1) mmol/L Chloride (98-107) mmol/L Carbon Dioxide (22-30) mmol/L BUN (9-20) mg/dL Creatinine (0.66-1.25) mg/dL Glucose (74-99) mg/dL POC Glucose (mg/dL) 275 H (70-110) mg/dL Calcium (8.4-10.2) mg/dL Assessment and Plan Assessment: Acute hypoxemic respiratory failure secondary to COPD exacerbation and the patient presented with acute hypoxic and hypercapnic respiratory failure. Ox ygenation has improved. Remains on 2 liters nasal cannula. Severe COPD and the patient has an FEV1 of 39% of predicted at baseline and this is based on spirometry that was done on 09/28/2020. The patient has been maintained on Advair and DuoNeb about treatments [id number].. Delirium, recovered Acute kidney injury and the creatinine is currently 1.4. GFR of 52 Acute tracheobronchitis. Recovered Supraventricular tachycardia/atrial fibrillation with RVR. Patient is currently on normal sinus rhythm. The patient is also on anticoagulation with Eliquis. The patient has a normal LV function History of laryngeal carcinoma, in remission, status post radiation treatment, diagnosed in 2017. Acute hypercapnic respiratory failure secondary to severe COPD. GI bleed with positive stool for occult blood, current hemoglobin 10.6. Plans for EGD/colonoscopy revealed duodenitis, antral gastritis, erosive esophagitis, diverticulosis. No active bleeding. Cecal dilatation of 10 cm with distention in the distal ileum to the ascending and transverse colon Plan: The patient was seen and evaluated Abdominal x-ray, medications and labs reviewed Advanced to a liquid diet Surgical services on the case Stable and on 2 L nasal cannula Continue a prednisone taper, Symbicort To subacute rehabilitation once cleared by surgery I have personally seen and examined the patient, performed the documentation and the assessment and plan as written. Number of minutes spent on the visit: 10.
[2022-07-29 16:49] LABS: Glucose,Whole Blood 182 mg/dL (70-110)
[2022-07-29 20:52] LABS: Glucose,Whole Blood 132 mg/dL (70-110)
[2022-07-29] MEDS: ATORVASTATIN 10 MG TAB PO SCH (21:01)
[2022-07-30 01:34] LABS: Glucose,Whole Blood 118 mg/dL (70-110)
--- NOTE | 2022-07-30 04:53 | P.PN ---
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 Patient tried breathing treatments at home without much relief. Patient was tachycardic on admission with heart rate in 160s and was found to be SVT patient was given Ellenson in the ER. Otherwise denied any complaints of chest pain. No nausea vomiting or abdominal pain. Denied any increased leg swelling. No fever no chills. No prior history of SVT. Chest x-ray showed COPD. No active cardiopulmonary disease. Mild pulmonary fibrotic changes. No significant change. CTA chest showed no evidence of PE. Emphysema and mild pulmonary fibrosis. No suspicious pulmonary mass. Laboratory data showed WBC 16.0 hemoglobin 16.0 and platelets 269 Sodium 139 potassium four-point 102 bicarb is 20 BUN 16 and creatinine 0.87 and lactic acid 2.7 Troponin x1 negative and proBNP is 378 TSH 0.49 6 Coronavirus and influenza AMB not detected. Urinalysis is negative for infection. 07/08/2022 Patient continues to be monitored in intensive care unit mostly on BiPAP support but able to be weaned to 3 to 4 L of oxygen via nasal cannula. He is unsure when he has had bowel movement and has limited to no bowel sounds for this reason abdominal xray has been performed showing mildly distended small bowel loops and some segments of colon as well. Consider generalized ileus and difficult to exclude the possibility of a distal colonic obstruction. White blood cell count today 6.1, sodium 144, potassium 4.6, BUN 40, creatinine 0.99, blood glucose 150, magnesium 2.4. Procalcitonin 0.55. Vitals today, patient is afebrile, heart rate 71, blood pressure 121/64, 95% oxygen saturation. Patient has been maintained on dexmedetomidine for acute anxiety which is currently paused. Continues on IV Solu-Medrol, and bronchodilators. Patient is currently on IV cardizem gtt for tachycardia and will be transitioned to oral verapamil today, cardiology is following. 07/09/2022 Patient continues to be monitored in intensive care unit. White count elevated up to 12.4 today he has expiratory wheezing on exam changed from yesterday. Patient requiring bipap at 35% FiO2 currently. He did have low grade fever this morning 99 and is receiving acetaminophen as needed. chest xray today showing chronic emphysema and pulmonary fibrotic change. Procalcitonin level elevated at 0.55. IV ceftriaxone increased to 2 gram every 24 hours. Patient is continued on bronchodilators. Continues on IV solumedrol 60 mg q6h. Dexmedetomidine possibly being weaned off today, seroquel and haldol ordered with ativan as needed. Patient continues with significant abdominal distention and absent bowel sounds left lower quadrant. Did not receive lactulose yesterday. General surgery was consulted for further evaluation, currently placed NPO for possible ileus /bowel obstruction. He is hypertensive today with systolic in the 180s has been started on verapamil TID and also hydralazine 50 BID. Cardiology following. 07/10/2022 Patient evaluated today on BiPAP, fio2 has been increased to 40%, he is using accessory muscles to breath and appears quite aggitated. He is on combination of haldol, seroquel for this. Additionally, he was started on nicotine patch and clonidine patch. NG tube has been placed, patient has not had a BM. Abdominal Pelvis CT completed showing no CT evidence for small bowel obstruction. Patient also had follow up chest xray today showing COPD changes and no acute disease. Never the less he appears to have some respiratory distress requiring BiPAP. white count 11.7 today, sodium 149, BUN 47, creatinine 1.05, blood glucose 170s. Patient has been placed on amiodarone infusion and also heparin gtt as patient is unable to take oral medications currently. He continues on antibiotics. Continues on IV solumedrol. 07/11/2022 Patient is monitored in intensive care unit. Continues with NG tube. Tube feedings have been resumed with vital AF 1.2 with goal of 55 mls per hour. Currrently running at 20 mLs/hour. Patient has free water flush 30 mL every 4 hours, would like to increase free water and discontinue IV fluids. Sodium level today 148, potassium 4.1, chloride 110, BUN 51, creatinine 1.08. Blood glucose in the 240s and insulin has been increased. Patient is receiving lactulose, had fleet enema today. Has not had a BM this admission, bowel sounds in all 4 quadrants today. Amiodarone has been discontinued. Continues on oral verapamil. Heart rate is improving. Patient trialed on airvo 60/60 today. Chest xray showing no focal consolidation. 07/12/2022 Patient is evaluated in ICU, family at bedside. Continues on Airvo 60/60, reports non productive cough. Diffuse weakness. Abdomen distended seems worse than yesterday. Discussed with surgery. Tube feedings have been placed on hold and patient started on daily suppositories. Otherwise continues on empiric ceftriaxone. Chest xray showing COPD with possible underlying pulmonary vascular congestion. Sodium up to 150 today, nephrology consulted. Patient has been started on D5% water at 75 mls per hour. BUN 55 creatinine 1.22 today. Blood glucose 230s. Heart rate 120s today, blood pressure 130/91, remains afebrile. 07/13/2022 Patient continue in Intensive Care unit. Continues on Airvo 60/60. He reports breathing improved today less short of breath. Lung sounds have improved and increased aeration. Less congested. No BM yet, has been started on dulcolax suppository daily. Increased bowel sounds today and abdomen is less distended. Remains on IV ceftriaxone. White count normalized to 9.9. Sodium remains at 150, BUN 51, creatinine 1.21. Blood glucose 200s. hgb A1c found to be 6.5 consistent with diagnosis of diabetes mellitus type 2. Continues on levemir with sliding scale and scheduled novolog coverage. Remains afebrile, heart rate 87, blood pressure 177/91, oxygen saturation 95%. IV steroids have been decreased today. Continues on oral cardizem, oral verapamil. Continues on D5 water at 75 mls per hour. 07/14/2022 Patient continues to be monitored closely in intensive care unit. He continues on Airvo 45/60, has tolerated weaning and continues to report improvement in work of breathing. No wheezing noted on exam today has some coarse scattered ronchi. NG tube remains in place, he did have BM. Will discuss with surgery if NG tube can be discontinued. Will add nystatin swish today which can be applied manually versus swishing. Patient remains diffusely weak has been on bedrest. No breakdown noted on skin. Continues on oral amiodarone, verapamil, anticoagulated with eliquis. Patient has been maintained on empiric antibiotic coverage with IV ceftriaxone, tomorrow will be day 5. white count has normalized consider discontinuing antibiotics tomorrow. Patient is maintaining sinus rhythm today heart rate 80s, blood pressure 159/78, 93% oxygen saturation, has remained afebrile. Labs today are improving, white count remains within normal limits at 10.4, sodium 142, potassium 4.5, chloride normalized to 104, BUN 48, creatinine 1.08. Blood glucose 160s to 200s. IV fluids have been changed to D5 1/2 NS at 50. Repeat labs tomorrow. Multiple consultations following. PT/OT has been consulted. 07/15/22. Patient seen and examined. Daughter at the bedside. Patient continues to be on heated high flow oxygen. States he feels better. Denies any nausea, vomiting. Case discussed with nursing staff 07/16/22. Patient seen and examined. Stated that he had a panic attack this morning, currently doing much better. Breathing is improving. Denies any chest pain. Continues to be on heated high flow 07/17/22. Patient seen and examined. Continues to be on heated high flow. Does not look any acute distress. 07/18/22. Patient seen and examined. Patient is transferred out of ICU. Currently on 4 L of oxygen. Gets short of breath on exertion. Otherwise patient is doing better compared to yesterday 07/19. Patient seen and examined. Continues to be on 4 L of oxygen. Creatinine has bumped up to 1.9. Gets short of breath on exertion. Patient is very weak 07/20. Patient seen and examined. Still gets short of breath on minimal exertion. Denies any chest pain. Not very keen to get out of the bed. Explained to him that he needs to get out of the bed 07/21. Patient seen and examined. Currently sitting in the chair. States he feels better compared to yesterday. Still complaining of productive cough 07/22/2022 Patient monitored sitting up in chair today. He continues on 4L nasal cannula. Hypotensive today blood pressures in the 80s systolic. 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 Verapamil has been placed on hold. Creatinine increased up to 2.08 today, most likely from acute hypotensive episode. He continues in sinus rhythm heart rate in the 70s. Potassium 5.7, sodium 132. Sputum culture pending. 07/23/2022 Patient sitting up in chair today. No acute events overnight. He does report some dizziness. Blood pressure on the lower side throughout the evening and he received a 500 mL fluid bolus. Started on midodrine yesterday as well. Blood pressure improved to 110s/50s. Continues on 4L nasal cannula. Surgery has been following for reports of maroon colored stools which patient reports have resolved, and he is scheduled to undergo EGD colonoscopy . Hgb 11.2. Creatinine improved to 1.8 today. He continues with indwelling catheter. 07/24/2022 Patient resting in bed today. Started goLytely prep for EGD/colonoscopy tomorrow. Reports worsening shortness of breath today. He has scattered wheezing today. Patient would benefit from lasix which nephrology has ordered an IV dose x 1 today, 40 mg and will start oral lasix 40 mg daily tomorrow. Hemoglobin remains stable at 10.6, sodium 130, BUN 77, creatinine 1.6 today. Blood glucose in the 70s, monitor closely. Decreased levemir and scheduled insulin. Continues with indwelling catheter. Blood pressure improved, 108/69. Continues on midodrine. 07/25/2022 Patient is seen in follow-up today with family at the bedside currently scheduled to undergo colonoscopy with EGD with general surgery today. Patient is currently maintained on 2-4 L of oxygen via nasal cannula and recommend wean FiO2 as tolerated. Nephrology following inpatient is maintained on Lasix that has been transitioned oral and increasing today to 40 mg twice daily and recommending repeat labs. Sodium on the lower side. Patient is currently nothing by mouth and will resume diet once done with endoscopy. Patient to continue with indwelling Greenfield catheter and also strongly recommend aspiration precautions along with continuing to monitor Accu-Cheks before meals and at bedtime. Patient is afebrile denies worsening shortness of breath or chest pain. Will await endoscopy report. 07/26/2022 Patient is seen and evaluated today post EGD/colonoscopy. Per report there was a poor bowel prep although parts visualized of the colonoscopy with no evidence of GI bleed and possibly secondary to erosive esophagitis. Multiple biopsies were obtained and patient will need follow-up outpatient. Hemoglobin is stable with no evidence of bleeding noted. Patient with abdominal distention ordered CT abdomen which is currently pending for this morning. Currently NPO per surgery recommendations. Continued on oral lasix with nephrology following. Sodium continues to be low and kidney functions elevated. Patient is asking for advance in diet as he has not had any real food in days due to recent colonoscopy prep. 07/27/2022 Patient is seen today and reports to feeling hungry and less pain in the abdomen. Patient being followed by surgery and recommending abdominal xray. Patient is passing gas with no bowel movement as of yet. Patient is NPO currently until cleared by surgery. CT was concerning of cecal dilatation and some ascites. Encouraged increased activity as tolerated and PT daily. Patient with progressive weakness and prolonged hospitalizations would greatly benefit from ECF on discharge. 07/28/2022 Patient is seen in follow up and abd xray shows ileus with abdominal distention. Surgery following and will continue NPO with ice chips and popsicles. Repeat abd xray ordered for am. Recommend repeat labs as well. Continued with pulmonary and nephrology following as well. Patient is afebrile and denies worsening shortness of breath. Patient denies chest pain. Patient reports to feeling hungry. 07/29/2022 Patient is seen today lying in bed. Multiple medical consultations following and xray from today continues to demonstrate ileus with contrast still noted in the bowel. Surgery following and has increased diet to clear liquids. Recommend aspiration precautions. Abdomen continues to be distended although non-tender per patient. Patient is afebrile and denies worsening shortness of breath. Pulmonary following and continued on oral prednisone taper along with breathing treatments. Encouraged incentive spirometer and increased activity as tolerated. Patient with significant weakness and prolonged hospitalization will require ECF once stabilized. Follow up am labs ordered. Recommend PT daily. Review of Systems Constitutional: No Reports of fatigue, denied any fever. Cardio vascular: denied any chest pain, palpitations Gastrointestinal: denied any nausea, vomiting, or diarrhea, passing gas Pulmonary: no Reports of worsening shortness of breath Neurologic reports weakness All inpatient medications were reviewed and appropriate changes in these medications as dictated in the interval history and assessment and plan. PHYSICAL EXAMINATION: GENERAL: The patient is alert and oriented x3. Well developed, well nourished. lying in bed. Obese. HEENT: Pupils are round and equally reacting to light. EOMI. No scleral icterus. No conjunctival pallor. Normocephalic, atraumatic. No pharyngeal erythema. No thyromegaly. CARDIOVASCULAR: S1 and S2 muffled PULMONARY: Scattered, coarse lung sounds bilaterally. Faint bibasilar crackles. ABDOMEN: Soft, nontender, less distended, normoactive bowel sounds. No palpable organomegaly. Round, obese. MUSCULOSKELETAL: No joint swelling or deformity. EXTREMITIES: No cyanosis, clubbing, or pedal edema. NEUROLOGICAL: Gross neurological examination did not reveal any focal deficits. Diffuse generalized weakness. SKIN: No rashes. Assessment: Acute COPD exacerbation and tracheobronchitis, improving Acute hypoxemic respiratory failure secondary to above, has been weaned off BiPAP/Airvo support and currently on 2L nasal cannula SVT/Atrial fibrillation with rapid rate converted to normal sinus rhythm Hypertension currently hypotensive, improving on midodrine. Ruled out GI bleed On EGD colonoscopy, most likely erosive esophagitis Hypernatremia, resolved currently hyponatremic, improving with samsca Acute kidney injury, initially resolved, creatinine elevated from hypotension and component of urinary retention Urinary retention with indwelling greenfield catheter cecal dilatation noted on CT Diabetes Mellitus type 2 A1C 6.5. Ileus, redemonstrated on recent xray 07/27/22 BPH Prior history of smoking History of throat cancer and vocal cord status post radiation 2016 GI prophylaxis DVT prophylaxis Full Code Plan: Continue oxygen supplementation, currently on 2 L via NC, Pulmonary following and continued on pred taper and duoneb treatments. Currently on 30mg PO prednisone Patient with abdominal pain improvement and reports to passing gas with no bowel movement. Surgery following and abd xrays still with concerns for ileus. Diet being advanced to clear liquids Short term amiodarone therapy for one month and then discontinue per cardiology Patient started on midodrine, verapamil on hold. Continue Flomax, indwelling catheter EGD/Colonoscopy done per report shows a poor bowel prep with no evidence of GI bleeding in the colonoscopy and most likely secondary to erosive esophagitis and biopsies were obtained Oral Lasix daily 40 mg per nephrology and follow up am labs ordered. post samsca and sodium is improved to 130 POtassium is 3.3 and recommend to replace per protocol. Mag is 1.7 today Continues on oral steroid taper, now at 30 mg. Pulmonary following Recommend getting up out of the bed multiple times per day. Subacute rehab on discharge when medically stable Recommend PT/OT daily Overall prognosis remains guarded. The impression and plan of care has been dictated by Tiffanie Kauffman, Nurse Practitioner as directed. Dr. Cara MD I have performed a history and examination and MDM of this patient, discussed the same with the dictator, and agree with the dictator's assessment and plan as written ,documented as a scribe. Based on total visit time, I have performed more than 50% of the visit. Objective - Vital Signs Vital signs: Vital Signs Temp 99.2 F 07/29/22 08:00 Pulse 68 07/29/22 08:45 Resp 18 07/29/22 08:00 BP 107/62 07/29/22 08:00 Pulse Ox 91 L 07/29/22 08:00 FiO2 35 07/17/22 11:06 Intake & Output 07/28/22 07/29/22 07/29/22 18:59 06:59 18:59 Output Total 600 1400 Balance -600 -1400 Weight 82.5 kg Output: Urine 600 1400 Other: Voiding Method Indwelling Catheter Indwelling Catheter Indwelling Catheter - Labs CBC & Chem 7: 07/29/22 09:14 07/29/22 09:14 Labs: Abnormal Lab Results - Last 24 Hours (Table) 07/28/22 07/28/22 07/28/22 Range/Units 11:34 16:17 19:32 RBC (4.30-5.90) m/uL Hgb (13.0-17.5) gm/dL Hct (39.0-53.0) % Plt Count (150-450) k/uL Lymphocytes # (1.0-4.8) k/uL Sodium (137-145) mmol/L Potassium (3.5-5.1) mmol/L Chloride (98-107) mmol/L Carbon Dioxide (22-30) mmol/L BUN (9-20) mg/dL Creatinine (0.66-1.25) mg/dL Glucose (74-99) mg/dL POC Glucose (mg/dL) 199 H 158 H 118 H (70-110) mg/dL Calcium (8.4-10.2) mg/dL 07/29/22 07/29/22 07/29/22 Range/Units 01:43 06:35 09:14 RBC 3.31 L (4.30-5.90) m/uL Hgb 10.0 L (13.0-17.5) gm/dL Hct 29.2 L (39.0-53.0) % Plt Count 104 L (150-450) k/uL Lymphocytes # 0.6 L (1.0-4.8) k/uL Sodium (137-145) mmol/L Potassium (3.5-5.1) mmol/L Chloride (98-107) mmol/L Carbon Dioxide (22-30) mmol/L BUN (9-20) mg/dL Creatinine (0.66-1.25) mg/dL Glucose (74-99) mg/dL POC Glucose (mg/dL) 174 H 151 H (70-110) mg/dL Calcium (8.4-10.2) mg/dL 07/29/22 Range/Units 09:14 RBC (4.30-5.90) m/uL Hgb (13.0-17.5) gm/dL Hct (39.0-53.0) % Plt Count (150-450) k/uL Lymphocytes # (1.0-4.8) k/uL Sodium 130 L (137-145) mmol/L Potassium 3.3 L (3.5-5.1) mmol/L Chloride 94 L (98-107) mmol/L Carbon Dioxide 34 H (22-30) mmol/L BUN 34 H (9-20) mg/dL Creatinine 1.39 H (0.66-1.25) mg/dL Glucose 155 H (74-99) mg/dL POC Glucose (mg/dL) (70-110) mg/dL Calcium 7.3 L (8.4-10.2) mg/dL
[2022-07-30 06:20] LABS: Glucose,Whole Blood 92 mg/dL (70-110)
[2022-07-30] MEDS: INSULIN ASPART (NovoLOG) 100 UNIT/ML VIAL SQ SCH ×8 (06:58→20:51)
[2022-07-30] MEDS: MIDODRINE 5 MG TAB PO SCH ×3 (07:01→16:35)
[2022-07-30] MEDS: TAMSULOSIN 0.4 MG CAP.ER.24H PO SCH (07:54)
[2022-07-30] MEDS: INSULIN DETEMIR (LEVEMIR) 100 UNIT/ML SYR SQ SCH ×2 (07:54→20:51)
[2022-07-30] MEDS: IPRATROPIUM-ALBUTEROL 3 ML NEB INHALATION SCH ×4 (08:36→21:13)
[2022-07-30] MEDS: SYMBICORT 160-4.5 MCG INHALER INHALATION SCH ×2 (08:36→21:13)
[2022-07-30] MEDS: predniSONE 10 MG TAB PO SCH (08:59)
[2022-07-30] MEDS: FUROSEMIDE 40 MG TAB PO SCH ×2 (09:02→16:35)
[2022-07-30] MEDS: PANTOPRAZOLE 40 MG/10 ML VIAL IVP SCH (09:05)
[2022-07-30] MEDS: FAMOTIDINE 20 MG TAB PO SCH (09:05)
[2022-07-30] MEDS: ALVIMOPAN 12 MG CAPSULE PO SCH ×2 (09:05→20:23)
[2022-07-30] MEDS: NYSTATIN 100,000 UNIT/ML SUSP 500,000 UNIT/5 ML CUP PO SCH (09:05)
[2022-07-30] MEDS: AMIODARONE 200 MG TAB PO SCH ×2 (09:06→20:23)
[2022-07-30] MEDS: bisacodyL 10 MG SUPP RECTAL SCH ×2 (09:06→09:19)
[2022-07-30] MEDS: CALCIUM CARBONATE 500 MG CHEWABLE PO SCH ×3 (09:23→22:42)
[2022-07-30] MEDS: SIMETHICONE 40 MG/0.6 ML DROPS 2,000 MG/30 ML BOTTLE PO SCH ×4 (09:45→22:42)
[2022-07-30 09:57] LABS: Magnesium 1.5 mg/dL (1.5-2.4)
[2022-07-30] MEDS ORDERED: Magnesium Replacement Protocol 1 EACH MISC MISCELLANE PRN (10:03)
[2022-07-30 10:09] LABS: African American GFR (CKD) 54.7 (60.0-200.0); Anion Gap 9.9 mmol/L (10.00-18.00); BUN/Creat Ratio 16.2 Ratio (12.00-20.00); Blood Urea Nitrogen 24.3 mg/dL (9.0-27.0); Carbon Dioxide 30.1 mmol/L (20.0-27.5); Non-African American GFR(CKD) 47.2 (60.0-200.0); Potassium 3.3 mmol/L (3.5-5.5)
[2022-07-30 11:15] LABS: Glucose,Whole Blood 123 mg/dL (70-110)
--- NOTE | 2022-07-30 11:20 | P.PN ---
Subjective Nephrology was reconsulted due to acute kidney injury. Renal function fairly stable. Creatinine 1.5 today. Tolerating clear liquid diet. Denies chest pain or shortness of breath. Nonoliguric. On oral Lasix. Vital signs are stable. General: Awake. No acute distress. HEENT: Head exam is unremarkable. LUNGS: Breath sounds decreased. HEART: Rate and Rhythm are regular. ABDOMEN: Soft, distention noted. EXTREMITITES: Trace edema. Objective - Vital Signs Vital signs: Vital Signs Temp 97.9 F 07/30/22 07:45 Pulse 78 07/30/22 08:48 Resp 18 07/30/22 07:45 BP 103/54 07/30/22 07:45 Pulse Ox 97 07/30/22 08:36 FiO2 35 07/17/22 11:06 Intake & Output 07/29/22 07/30/22 07/30/22 18:59 06:59 18:59 Output Total 2700 1250 Balance -2700 -1250 Weight 82.5 kg 80.5 kg Output: Urine 2700 1250 Other: Voiding Method Indwelling Catheter Indwelling Catheter - Labs CBC & Chem 7: 07/29/22 09:14 07/30/22 06:09 Labs: Abnormal Lab Results - Last 24 Hours (Table) 07/29/22 07/29/22 07/29/22 Range/Units 11:51 16:47 20:52 Sodium (135-145) mmol/L Potassium (3.5-5.5) mmol/L Chloride (96-109) mmol/L Carbon Dioxide (20.0-27.5) mmol/L Anion Gap (10.00-18.00) mmol/L Est GFR (CKD-EPI)AfAm (60.0-200.0) Est GFR (CKD-EPI)NonAf (60.0-200.0) POC Glucose (mg/dL) 275 H 182 H 132 H (70-110) mg/dL Calcium (8.7-10.3) mg/dL 07/30/22 07/30/22 Range/Units 01:33 06:09 Sodium 134 L (135-145) mmol/L Potassium 3.3 L (3.5-5.5) mmol/L Chloride 94 L (96-109) mmol/L Carbon Dioxide 30.1 H (20.0-27.5) mmol/L Anion Gap 9.90 L (10.00-18.00) mmol/L Est GFR (CKD-EPI)AfAm 54.7 L (60.0-200.0) Est GFR (CKD-EPI)NonAf 47.2 L (60.0-200.0) POC Glucose (mg/dL) 118 H (70-110) mg/dL Calcium 8.0 L (8.7-10.3) mg/dL Assessment and Plan Plan: Assessment: 1. Acute kidney injury secondary to hemodynamic ATN. Renal function stable. Creatinine 1.5 today. No hydronephrosis noted on CAT scan. 2. Ileus. Surgery following. 3. A. fib. Cardiology following. Rate controlled. On oral amiodarone. 4. Diabetes mellitus. 5. Volume overload. Maintained on Lasix. 6. Urinary retention. Has Rojas catheter. On Flomax. 7. Hypokalemia from diuresis. 8. Hyponatremia. Hypervolemic. Better. Status post [facility] this admission. 9. Hypomagnesemia from diuresis. Plan: Maintain Lasix. Replace potassium. Continue to monitor renal function and urine output. Avoid nephrotoxins. Magnesium being replaced. DC Rojas catheter and monitor serial bladder scans to make sure retention.
[2022-07-30] MEDS: MAGNESIUM SULFATE-D5W PMX 1 GM in DEXTROSE/WATER 1 100ML.BAG IVPB SCH ×2 (11:29→12:36)
[2022-07-30] MEDS: POTASSIUM CHLORIDE ER 20 MEQ TAB.ER PO SCH ×3 (11:43→13:58)
--- NOTE | 2022-07-30 13:03 | P.PN ---
Subjective Progress Note Date: 07/30/22 CHIEF COMPLAINT: Ileus in HISTORY OF PRESENT ILLNESS: Patient admitted to the hospital with shortness of breath evidence of COPD exacerbation, bronchitis and SVT. Surgical service initially consulted regarding an abdominal ileus. The ileus resolved. Surgical service had been re-consulted in regards to GIB. Patient is status post EGD and colonoscopy results demonstrated duodenitis, antral gastritis, erosive esophagitis and diverticulosis. He did have a poor prep. Patient denies any nausea or vomiting. Patient does report some lower abdominal cramping sensations. He did have a bowel movement and flatus. No blood in the stools. Currently on a clear liquid diet. Afebrile. Sodium 134 potassium is 3.3 creatinine 1.5 magnesium 1.5 Patient seen and examined with Dr. Jim PHYSICAL EXAM: VITAL SIGNS: Reviewed. GENERAL: Well-developed in no acute distress. ABDOMEN: Soft. distended. Mild tenderness to palpation lower abdomen ASSESSMENT: 1. GI bleed resolved. Likely due to erosive esophagitis 2. Ileus 2. Acute COPD exacerbation with acute hypoxic respiratory failure 3. SVT and AFIB 4. Hypokalemia and hypomagnesemia PLAN: -Continue to replace electrolytes -Continue clear liquid diet -Continue to increase activity level -Continue PPI Physician Wrapper Stemmer Hand note has been reviewed by physician. Signing provider agrees with the documented findings, assessment, and plan of care. Objective - Vital Signs Vital signs: Vital Signs Temp 97.9 F 07/30/22 07:45 Pulse 78 07/30/22 11:51 Resp 18 07/30/22 07:45 BP 103/54 07/30/22 07:45 Pulse Ox 97 07/30/22 08:36 FiO2 35 07/17/22 11:06 Intake & Output 07/29/22 07/30/22 07/30/22 18:59 06:59 18:59 Output Total 2700 1250 1000 Balance -2700 -1250 -1000 Weight 82.5 kg 80.5 kg Output: Urine 2700 1250 1000 Other: Voiding Method Indwelling Catheter Indwelling Catheter Indwelling Catheter - Labs CBC & Chem 7: 07/29/22 09:14 07/30/22 06:09 Labs: Abnormal Lab Results - Last 24 Hours (Table) 07/29/22 07/29/22 07/30/22 Range/Units 16:47 20:52 01:33 Sodium (135-145) mmol/L Potassium (3.5-5.5) mmol/L Chloride (96-109) mmol/L Carbon Dioxide (20.0-27.5) mmol/L Anion Gap (10.00-18.00) mmol/L Est GFR (CKD-EPI)AfAm (60.0-200.0) Est GFR (CKD-EPI)NonAf (60.0-200.0) POC Glucose (mg/dL) 182 H 132 H 118 H (70-110) mg/dL Calcium (8.7-10.3) mg/dL 07/30/22 07/30/22 Range/Units 06:09 11:08 Sodium 134 L (135-145) mmol/L Potassium 3.3 L (3.5-5.5) mmol/L Chloride 94 L (96-109) mmol/L Carbon Dioxide 30.1 H (20.0-27.5) mmol/L Anion Gap 9.90 L (10.00-18.00) mmol/L Est GFR (CKD-EPI)AfAm 54.7 L (60.0-200.0) Est GFR (CKD-EPI)NonAf 47.2 L (60.0-200.0) POC Glucose (mg/dL) 123 H (70-110) mg/dL Calcium 8.0 L (8.7-10.3) mg/dL
--- NOTE | 2022-07-30 14:39 | P.PN ---
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 The patient is currently being seen in the intensive care unit for alcohol withdrawal was and hypoxic respiratory failure. This morning, is awake and alert and there is no significant agitation. He remains on high flow oxygen at 45 L with an FiO2 of 56%. His current pulse ox is around 89%. Note that he had a CT angiogram at time of admission that showed no evidence of any pulmonary embolism. It showed emphysema and mild portal fibrosis. His resting comfortably in bed. He has no significant shortness of breath at rest. The same time, the patient has been in normal sinus rhythm. Noted at the time of admission, he was in atrial fibrillation and he was treated with a Cardizem drip and currently is off the drip. He is also off Precedex for now. Neurologically, he is alert and oriented 3. His most recent chest x-ray from yesterday showing some atelec tatic changes in the lung bases and emphysema. Otherwise no other major abnormalities are noted. In terms of treatment, the patient is currently on DuoNeb about treatments [id number], he is on Pulmicort Respules 1 mg twice a day, he is on IV Solu-Medrol 40 mg every 6 hours. Is also on performance 1 nevertheless treatment twice a day. He is covered with antibiotics and the patient is receiving Rocephin 2 g every 24 hours. His blood cultures from this admission is negative. The white cell count is at 12 with a hemoglobin of 14.7 and a platelet count of 188. BUN is 44 with a creatinine of 1.1 and sodium levels of 137. In terms of his viral screen, the patient had a negative Covid 19 infection. Influenza screen was negative at the time of admission. On today's evaluation of 07/16/2022, the patient remains on high flow oxygen at 45 L with an FiO2 of 50%. The patient is feeling better and less short of breath compared to yesterday. No significant cough or sputum production. The patient was offered an incentive spirometer and the patient is able to generate adequate volumes on the incentive spirometer, nevertheless, the values remain less than 500 mL. The patient is on IV Rocephin. The patient was growing Haemophilus influenza in his sputum. At the same time, the patient remains on bronchodilators and he is on DuoNeb neb blotchiness 4 times a day, he is on a combination of Perforomist and Pulmicort neb less treatments twice a day and IV Solu-Medrol and the doses 40 mg IV every 6 hours. He was started on diuretics and to dose of Lasix will be given to him today. In terms of his blood work, his sodium level is at 137 with a potassium level of 4.4, BUN of 44 with a creatinine of 1.05 with RBC count of 12 a hemoglobin 14.8 and a platelet count of 148. LFTs are essentially within normal limits. On today's evaluation of 07/17/2022, the patient has no specific complaints. The patient is gradually improving. This morning, the patient was weaned down to 40 liters with an FiO2 of 35% high flow oxygen. The patient is otherwise doing well. He is using the incentive spirometer. He is still coughing and his cough is congested. Unable to bring up much sputum. He was diuresis yesterday and he has been negative fluid balance for now. BUN is a 53 with a creatinine of 1.29 his sodium levels is 135. The patient's WBC count is at 16.4 with a hemoglobin of 14.5. Remains on DuoNeb about treatments [id number]. Remains on IV Solu-Medrol. No altered mentation. No chest pain. Remains quite weak and his been having generalized global weakness. He is on Levemir 14 units daily twice a day and the patient is on NovoLog 40 units with meals and a sliding scale coverage. No altered mentation. No other new complaints. 07/18/2022, patient is doing well. The patient has been taken off the high flow oxygen the patient is currently on 4 L of O2 nasal cannula. No new complaints. IV Solu-Medrol was then tapered down to 20 mg every 8 hours. Limited cough. No significant congestion. So bronchospastic and wheezy. Air entry is quite limited in the lung bases bilaterally. He has advanced COPD.Transferred out of the intensive care unit yesterday. He is using the incentive spirometer. On his blood work, the patient has a white cell count of 8.9 with a hemoglobin of 12.4 count of 264. The patient has a BUN of 17 with a creatinine of 0.6 and his sodium level is 145. LFTs are normal. On 07/19/2022, I'm seeing the patient for a follow-up. The patient is currently on 4 L of oxygen by nasal cannula. No new complaints. He remains on IV Solu- Medrol 40 mg every 6 hours. He remains on DuoNeb about treatments on the clock. He is still very weak and he may need rehabilitation. He was transferred out of the intensive care unit few days back. echoes at 70 with a hemoglobin of 15.3 and a platelet count of 202. BUN is at 80 with a creatinine of 1.9 and there is a slight rise in the creatinine compared to yesterday's blood work. This is probably related to diuresis. 07/20/2022, the patient is still on 4 L of Oxymizer nasal cannula. Overall respiratory status is stable. Nevertheless, the patient was having some issues with obstructive uropathy. The flexographic press operator was consulted. The patient is having frequent bladder scans. Flomax was also added to the regimen at a dose of 0.4 mg on a daily basis. The patient's creatinine currently is at 1.9 and the BUN is 89 with a sodium level of 133. Diuretics were held. echoes at 60 with a hemoglobin 12.7. Potassium is at 4.8. LFTs are normal. The patient remains on DuoNeb about treatments [id number]. The patient remains on IV Solu-Medrol at a dose of 40 mg every 6 hours. No diuretics for now. 07/21/2022, the patient remains on 4 L of O2 nasal cannula. He was able to sit up on a recliner for next 10. Time yesterday. He stated a Rojas catheter in place. Creatinine is being monitored. he remains on DuoNeb neb on the clock is also on IV Solu-Medrol was tapered down to 40 mg every 6 hours. The patient started developing some colored mucus and for that reason, another sputum analysis will be done today. His tolerating diet. His oral intake is gradually improving. He is quite weak and debilitated. He may need an ECF placement at a later stage. No other new complaints for now. Family is at the bedside. I lengthy discussion with the patient's family The blood work from today shows a white cell count of 12.4 with a hemoglobin of 11.8. Sodium is at 131, BUN is 97 with a creatinine of 1.85 and the rest of the liver function tests are essentially within normal limits. The patient is seen today 07/22/2022 in follow-up on the regular medical floor. He is currently sitting up in a chair at the bedside. Awake and alert in no acu te distress. Maintaining O2 saturations in the 90s on 4 L/m per nasal cannula. Blood cultures revealed no growth. Sputum culture pending. White count 13.7. Hemoglobin 12.6. Sodium 132. Potassium 5.7. Bicarb 28. BUN 105. Creatinine 2.08. Glucose 139. He is continued on DuoNeb inhalations, Pulmicort and Perforomist inhalations, prednisone taper. The patient is seen today 07/23/2022 in follow-up on the regular medical floor. He is awake and alert in no acute distress. Sitting up in a chair at the bedside. Maintaining O2 saturations in the 90s on 4 L/m per nasal cannula. Blood and sputum cultures revealed no growth. White count 11.8. Hemoglobin 11.2. Sodium 129. Potassium 4.7. BUN 103. Creatinine 1.86. Glucose 77. Remains on DuoNeb inhalations, Pulmicort and Perforomist inhalations, prednisone taper. The patient's stool was positive for occult blood. The plan is for EGD/colonoscopy on 07/25/2022. Currently on a clear liquid diet. The patient is seen today 07/24/2022 in follow-up on the regular medical floor. Currently sitting up in a chair at the bedside. Awake and alert in no acute distress. He is maintaining good O2 saturations in the 90s on 4 L/m per nasal cannula. No worsening shortness of breath, cough or congestion. White count 8.9. Hemoglobin 10.6. Sodium 130. Potassium 4.8. BUN 77. Creatinine 1.6. Glucose 70. He received Lasix 40 mg IVP 1 today. Currently in a negative balance. Remains on DuoNeb inhalations, Pulmicort and Perforomist inhalations, prednisone taper. He is awaiting a EGD/colonoscopy tomorrow. The patient is seen today 07/25/2022 in follow-up on the regular medical floor. He is awake and alert in no acute distress. Currently sitting up in bed. He was having some issues with emesis earlier. Clear fluid returned. He has been on a bowel prep. He is currently maintaining O2 saturations in the high 90s on 4 L nasal cannula. His lung sounds are clear. No shortness of breath, cough or congestion. Sputum culture revealed no growth. Sodium 129. Potassium 4.0. BUN 66. Creatinine 1.40. He remains on Symbicort, DuoNeb inhalations. Oral diuretics. Prednisone taper. Plan is for EGD/colonoscopy today. The patient is seen today 07/26/2022 in follow-up on the regular medical floor. Currently sitting up in a chair at the bedside. Eating lunch. He did undergo EGD and partial colonoscopy. Not completed due to poor prep. He was found to have duodenitis, antral gastritis, erosive esophagitis, diverticulosis. No active bleeding noted. Computed tomography scan of the abdomen today revealed g eneralized anasarca. Trace to small bilateral effusions with adjacent atelectasis. Trace to small abdominal ascites. Small to moderate anterior pericardial effusion. Cecal dilatation of 10.0 cm. There is contiguous air distention of the distal ileum up to 3.5 cm in the ascending and transverse colon up to 6.3 cm. Blood cultures revealed no growth. Sputum culture revealed no growth. White count 5.8. Hemoglobin 10.5. Platelets 129. Sodium 127. Potassium 3.7. BUN 41. Creatinine 1.21. Glucose 161. He remains on DuoNeb inhalations, Symbicort, prednisone taper. Oral diuretics. The patient is seen today 07/27/2022 in follow-up on the regular medical floor. He is currently sitting up in a chair at the bedside. Awake and alert in no acute distress. Maintaining O2 saturations in the 90s on 2 L/m per nasal cannula. Afebrile. Denies any worsening abdominal discomfort. Blood cultures revealed no growth. Sputum culture revealed no growth. White count 7.4. Hemoglobin 10.6. Sodium 137. Potassium 3.8. BUN 35. Creatinine 1.5. Glucose 200. He remains on DuoNeb inhalations, Symbicort, prednisone taper. Oral diuretics. The patient is seen today 07/29/2022 in follow-up on the regular medical floor. He is awake and alert in no acute distress. Sitting up in bed. Maintaining O2 saturations in the 90s on 2 L/m per nasal cannula. Abdominal x-ray reveals persistent gaseous dilatation throughout the bowel seen on prior CT. Findings correlate with ileus. Evidence of COPD. Sputum culture revealed no growth. Blood cultures revealed no growth. White count 4.3. Hemoglobin 10.0. Sodium 1:30. Potassium 3.3. BUN 34. Creatinine 1.39. Glucose 155. He is continued on Symbicort, DuoNeb inhalations, prednisone taper. Surgical services are on the case. Diet is advanced to liquids. The patient is seen today 07/30/2022 follow-up on the regular medical floor. He is sitting up in a chair at the bedside. Awake and alert in no acute distress. Maintaining good O2 saturations in the 90s on 2 L/m per nasal cannula. Blood cultures reveal no growth. Sputum culture revealed no growth. Sodium 134. Potassium 3.3. BUN 24. Creatinine 1.5. Glucose 123. Continue on Symbicort, DuoNeb inhalations, prednisone. Objective - Vital Signs Vital signs: Vital Signs Temp 97.5 F L 07/30/22 14:00 Pulse 88 07/30/22 14:00 Resp 16 07/30/22 14:00 BP 106/66 07/30/22 14:00 Pulse Ox 98 07/30/22 14:00 FiO2 35 07/17/22 11:06 Intake & Output 07/29/22 07/30/22 07/30/22 18:59 06:59 18:59 Output Total 2700 1250 1000 Balance -2700 -1250 -1000 Weight 82.5 kg 80.5 kg Output: Urine 2700 1250 1000 Other: Voiding Method Indwelling Catheter Indwelling Catheter Indwelling Catheter - Exam Alert, 66-year-old male, sitting up in a chair, no acute distress, currently on 2 L nasal cannula. HEENT examination is grossly unremarkable. Neck supple. Full range of motion. No adenopathy thyromegaly or neck vein distention. Cardiovascular examination reveals regular rhythm rate. S1-S2 normal. No S3 or S4. No discernible murmur noted. Heart sounds are distant. Lungs reveal no crackles, wheeze or rhonchi. Diminished Abdomen , obese, soft, hypoactive bowel sounds. No masses or tenderness. Extremities are intact. No cyanosis clubbing or edema. Skin is without rash or lesion.Examination of the skin revealed no evidence of significant rashes, suspicious appearing nevi or other concerning lesions. Neurologic examination Neurologically, the patient is awake and alert and the patient does not have any focal neurological deficit. Cranial nerves are essentially intact. - Labs CBC & Chem 7: 07/29/22 09:14 07/30/22 06:09 Labs: Abnormal Lab Results - Last 24 Hours (Table) 07/29/22 07/29/22 07/30/22 Range/Units 16:47 20:52 01:33 Sodium (135-145) mmol/L Potassium (3.5-5.5) mmol/L Chloride (96-109) mmol/L Carbon Dioxide (20.0-27.5) mmol/L Anion Gap (10.00-18.00) mmol/L Est GFR (CKD-EPI)AfAm (60.0-200.0) Est GFR (CKD-EPI)NonAf (60.0-200.0) POC Glucose (mg/dL) 182 H 132 H 118 H (70-110) mg/dL Calcium (8.7-10.3) mg/dL 07/30/22 07/30/22 Range/Units 06:09 11:08 Sodium 134 L (135-145) mmol/L Potassium 3.3 L (3.5-5.5) mmol/L Chloride 94 L (96-109) mmol/L Carbon Dioxide 30.1 H (20.0-27.5) mmol/L Anion Gap 9.90 L (10.00-18.00) mmol/L Est GFR (CKD-EPI)AfAm 54.7 L (60.0-200.0) Est GFR (CKD-EPI)NonAf 47.2 L (60.0-200.0) POC Glucose (mg/dL) 123 H (70-110) mg/dL Calcium 8.0 L (8.7-10.3) mg/dL Assessment and Plan Assessment: Acute hypoxemic respiratory failure secondary to COPD exacerbation and the patient presented with acute hypoxic and hypercapnic respiratory failure. Oxygenation has improved. Remains on 2 liters nasal cannula. Severe COPD and the patient has an FEV1 of 39% of predicted at baseline and this is based on spirometry that was done on 09/28/2020. The patient has been maintained on Advair and DuoNeb about treatments [id number].. Delirium, recovered Acute kidney injury and the creatinine is currently 1.4. GFR of 52 Acute tracheobronchitis. Recovered Supraventricular tachycardia/atrial fibrillation with RVR. Patient is currently on normal sinus rhythm. The patient is also on anticoagulation with Eliquis. The patient has a normal LV function History of laryngeal carcinoma, in remission, status post radiation treatment, diagnosed in 2017. Acute hypercapnic respiratory failure secondary to severe COPD. GI bleed with positive stool for occult blood, current hemoglobin 10.6. Plans for EGD/colonoscopy revealed duodenitis, antral gastritis, erosive esophagitis, diverticulosis. No active bleeding. Cecal dilatation of 10 cm with distention in the distal ileum to the ascending and transverse colon Plan: The patient was seen and evaluated Medications and labs reviewed Stable and on 2 L nasal cannula Continue a prednisone taper, Symbicort Cleared for transfer to [facility] once cleared by surgery I have personally seen and examined the patient, performed the documentation and the assessment and plan as written. Number of minutes spent on the visit: 10.
[2022-07-30 16:06] LABS: Glucose,Whole Blood 226 mg/dL (70-110)
[2022-07-30] MEDS: ATORVASTATIN 10 MG TAB PO SCH (20:23)
[2022-07-30 20:49] LABS: Glucose,Whole Blood 104 mg/dL (70-110)
[2022-07-30] MEDS ORDERED: MELATONIN 3 MG TABLET PO PRN (22:12)
[2022-07-31 01:46] LABS: Glucose,Whole Blood 116 mg/dL (70-110)
--- NOTE | 2022-07-31 04:04 | P.PN ---
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 Patient tried breathing treatments at home without much relief. Patient was tachycardic on admission with heart rate in 160s and was found to be SVT patient was given Ellenson in the ER. Otherwise denied any complaints of chest pain. No nausea vomiting or abdominal pain. Denied any increased leg swelling. No fever no chills. No prior history of SVT. Chest x-ray showed COPD. No active cardiopulmonary disease. Mild pulmonary fibrotic changes. No significant change. CTA chest showed no evidence of PE. Emphysema and mild pulmonary fibrosis. No suspicious pulmonary mass. Laboratory data showed WBC 16.0 hemoglobin 16.0 and platelets 269 Sodium 139 potassium four-point 102 bicarb is 20 BUN 16 and creatinine 0.87 and lactic acid 2.7 Troponin x1 negative and proBNP is 378 TSH 0.49 6 Coronavirus and influenza AMB not detected. Urinalysis is negative for infection. 07/08/2022 Patient continues to be monitored in intensive care unit mostly on BiPAP support but able to be weaned to 3 to 4 L of oxygen via nasal cannula. He is unsure when he has had bowel movement and has limited to no bowel sounds for this reason abdominal xray has been performed showing mildly distended small bowel loops and some segments of colon as well. Consider generalized ileus and difficult to exclude the possibility of a distal colonic obstruction. White blood cell count today 6.1, sodium 144, potassium 4.6, BUN 40, creatinine 0.99, blood glucose 150, magnesium 2.4. Procalcitonin 0.55. Vitals today, patient is afebrile, heart rate 71, blood pressure 121/64, 95% oxygen saturation. Patient has been maintained on dexmedetomidine for acute anxiety which is currently paused. Continues on IV Solu-Medrol, and bronchodilators. Patient is currently on IV cardizem gtt for tachycardia and will be transitioned to oral verapamil today, cardiology is following. 07/09/2022 Patient continues to be monitored in intensive care unit. White count elevated up to 12.4 today he has expiratory wheezing on exam changed from yesterday. Patient requiring bipap at 35% FiO2 currently. He did have low grade fever this morning 99 and is receiving acetaminophen as needed. chest xray today showing chronic emphysema and pulmonary fibrotic change. Procalcitonin level elevated at 0.55. IV ceftriaxone increased to 2 gram every 24 hours. Patient is continued on bronchodilators. Continues on IV solumedrol 60 mg q6h. Dexmedetomidine possibly being weaned off today, seroquel and haldol ordered with ativan as needed. Patient continues with significant abdominal distention and absent bowel sounds left lower quadrant. Did not receive lactulose yesterday. General surgery was consulted for further evaluation, currently placed NPO for possible ileus /bowel obstruction. He is hypertensive today with systolic in the 180s has been started on verapamil TID and also hydralazine 50 BID. Cardiology following. 07/10/2022 Patient evaluated today on BiPAP, fio2 has been increased to 40%, he is using accessory muscles to breath and appears quite aggitated. He is on combination of haldol, seroquel for this. Additionally, he was started on nicotine patch and clonidine patch. NG tube has been placed, patient has not had a BM. Abdominal Pelvis CT completed showing no CT evidence for small bowel obstruction. Patient also had follow up chest xray today showing COPD changes and no acute disease. Never the less he appears to have some respiratory distress requiring BiPAP. white count 11.7 today, sodium 149, BUN 47, creatinine 1.05, blood glucose 170s. Patient has been placed on amiodarone infusion and also heparin gtt as patient is unable to take oral medications currently. He continues on antibiotics. Continues on IV solumedrol. 07/11/2022 Patient is monitored in intensive care unit. Continues with NG tube. Tube feedings have been resumed with vital AF 1.2 with goal of 55 mls per hour. Currrently running at 20 mLs/hour. Patient has free water flush 30 mL every 4 hours, would like to increase free water and discontinue IV fluids. Sodium level today 148, potassium 4.1, chloride 110, BUN 51, creatinine 1.08. Blood glucose in the 240s and insulin has been increased. Patient is receiving lactulose, had fleet enema today. Has not had a BM this admission, bowel sounds in all 4 quadrants today. Amiodarone has been discontinued. Continues on oral verapamil. Heart rate is improving. Patient trialed on airvo 60/60 today. Chest xray showing no focal consolidation. 07/12/2022 Patient is evaluated in ICU, family at bedside. Continues on Airvo 60/60, reports non productive cough. Diffuse weakness. Abdomen distended seems worse than yesterday. Discussed with surgery. Tube feedings have been placed on hold and patient started on daily suppositories. Otherwise continues on empiric ceftriaxone. Chest xray showing COPD with possible underlying pulmonary vascular congestion. Sodium up to 150 today, nephrology consulted. Patient has been started on D5% water at 75 mls per hour. BUN 55 creatinine 1.22 today. Blood glucose 230s. Heart rate 120s today, blood pressure 130/91, remains afebrile. 07/13/2022 Patient continue in Intensive Care unit. Continues on Airvo 60/60. He reports breathing improved today less short of breath. Lung sounds have improved and increased aeration. Less congested. No BM yet, has been started on dulcolax suppository daily. Increased bowel sounds today and abdomen is less distended. Remains on IV ceftriaxone. White count normalized to 9.9. Sodium remains at 150, BUN 51, creatinine 1.21. Blood glucose 200s. hgb A1c found to be 6.5 consistent with diagnosis of diabetes mellitus type 2. Continues on levemir with sliding scale and scheduled novolog coverage. Remains afebrile, heart rate 87, blood pressure 177/91, oxygen saturation 95%. IV steroids have been decreased today. Continues on oral cardizem, oral verapamil. Continues on D5 water at 75 mls per hour. 07/14/2022 Patient continues to be monitored closely in intensive care unit. He continues on Airvo 45/60, has tolerated weaning and continues to report improvement in work of breathing. No wheezing noted on exam today has some coarse scattered ronchi. NG tube remains in place, he did have BM. Will discuss with surgery if NG tube can be discontinued. Will add nystatin swish today which can be applied manually versus swishing. Patient remains diffusely weak has been on bedrest. No breakdown noted on skin. Continues on oral amiodarone, verapamil, anticoagulated with eliquis. Patient has been maintained on empiric antibiotic coverage with IV ceftriaxone, tomorrow will be day 5. white count has normalized consider discontinuing antibiotics tomorrow. Patient is maintaining sinus rhythm today heart rate 80s, blood pressure 159/78, 93% oxygen saturation, has remained afebrile. Labs today are improving, white count remains within normal limits at 10.4, sodium 142, potassium 4.5, chloride normalized to 104, BUN 48, creatinine 1.08. Blood glucose 160s to 200s. IV fluids have been changed to D5 1/2 NS at 50. Repeat labs tomorrow. Multiple consultations following. PT/OT has been consulted. 07/15/22. Patient seen and examined. Daughter at the bedside. Patient continues to be on heated high flow oxygen. States he feels better. Denies any nausea, vomiting. Case discussed with nursing staff 07/16/22. Patient seen and examined. Stated that he had a panic attack this morning, currently doing much better. Breathing is improving. Denies any chest pain. Continues to be on heated high flow 07/17/22. Patient seen and examined. Continues to be on heated high flow. Does not look any acute distress. 07/18/22. Patient seen and examined. Patient is transferred out of ICU. Currently on 4 L of oxygen. Gets short of breath on exertion. Otherwise patient is doing better compared to yesterday 07/19. Patient seen and examined. Continues to be on 4 L of oxygen. Creatinine has bumped up to 1.9. Gets short of breath on exertion. Patient is very weak 07/20. Patient seen and examined. Still gets short of breath on minimal exertion. Denies any chest pain. Not very keen to get out of the bed. Explained to him that he needs to get out of the bed 07/21. Patient seen and examined. Currently sitting in the chair. States he feels better compared to yesterday. Still complaining of productive cough 07/22/2022 Patient monitored sitting up in chair today. He continues on 4L nasal cannula. Hypotensive today blood pressures in the 80s systolic. He did receive a 1L fluid bolus glass cut off tender and has been started on midodrine. Verapamil has been placed on hold. Creatinine increased up to 2.08 today, most likely from acute hypotensive episode. He continues in sinus rhythm heart rate in the 70s. Potassium 5.7, sodium 132. Sputum culture pending. 07/23/2022 Patient sitting up in chair today. No acute events overnight. He does report some dizziness. Blood pressure on the lower side throughout the evening and he received a 500 mL fluid bolus. Started on midodrine yesterday as well. Blood pressure improved to 110s/50s. Continues on 4L nasal cannula. Surgery has been following for reports of maroon colored stools which patient reports have resolved, and he is scheduled to undergo EGD colonoscopy . Hgb 11.2. Creatinine improved to 1.8 today. He continues with indwelling catheter. 07/24/2022 Patient resting in bed today. Started goLytely prep for EGD/colonoscopy tomorrow. Reports worsening shortness of breath today. He has scattered wheezing today. Patient would benefit from lasix which nephrology has ordered an IV dose x 1 today, 40 mg and will start oral lasix 40 mg daily tomorrow. Hemoglobin remains stable at 10.6, sodium 130, BUN 77, creatinine 1.6 today. Blood glucose in the 70s, monitor closely. Decreased levemir and scheduled insulin. Continues with indwelling catheter. Blood pressure improved, 108/69. Continues on midodrine. 07/25/2022 Patient is seen in follow-up today with family at the bedside currently scheduled to undergo colonoscopy with EGD with general surgery today. Patient is currently maintained on 2-4 L of oxygen via nasal cannula and recommend wean FiO2 as tolerated. Nephrology following inpatient is maintained on Lasix that has been transitioned oral and increasing today to 40 mg twice daily and recommending repeat labs. Sodium on the lower side. Patient is currently nothing by mouth and will resume diet once done with endoscopy. Patient to continue with indwelling Greenfield catheter and also strongly recommend aspiration precautions along with continuing to monitor Accu-Cheks before meals and at bedtime. Patient is afebrile denies worsening shortness of breath or chest pain. Will await endoscopy report. 07/26/2022 Patient is seen and evaluated today post EGD/colonoscopy. Per report there was a poor bowel prep although parts visualized of the colonoscopy with no evidence of GI bleed and possibly secondary to erosive esophagitis. Multiple biopsies were obtained and patient will need follow-up outpatient. Hemoglobin is stable with no evidence of bleeding noted. Patient with abdominal distention ordered CT abdomen which is currently pending for this morning. Currently NPO per surgery recommendations. Continued on oral lasix with nephrology following. Sodium continues to be low and kidney functions elevated. Patient is asking for advance in diet as he has not had any real food in days due to recent colonoscopy prep. 07/27/2022 Patient is seen today and reports to feeling hungry and less pain in the abdomen. Patient being followed by surgery and recommending abdominal xray. Patient is passing gas with no bowel movement as of yet. Patient is NPO currently until cleared by surgery. CT was concerning of cecal dilatation and some ascites. Encouraged increased activity as tolerated and PT daily. Patient with progressive weakness and prolonged hospitalizations would greatly benefit from ECF on discharge. 07/28/2022 Patient is seen in follow up and abd xray shows ileus with abdominal distention. Surgery following and will continue NPO with ice chips and popsicles. Repeat abd xray ordered for am. Recommend repeat labs as well. Continued with pulmonary and nephrology following as well. Patient is afebrile and denies worsening shortness of breath. Patient denies chest pain. Patient reports to feeling hungry. 07/29/2022 Patient is seen today lying in bed. Multiple medical consultations following and xray from today continues to demonstrate ileus with contrast still noted in the bowel. Surgery following and has increased diet to clear liquids. Recommend aspiration precautions. Abdomen continues to be distended although non-tender per patient. Patient is afebrile and denies worsening shortness of breath. Pulmonary following and continued on oral prednisone taper along with breathing treatments. Encouraged incentive spirometer and increased activity as tolerated. Patient with significant weakness and prolonged hospitalization will require ECF once stabilized. Follow up am labs ordered. Recommend PT daily. 07/30/2022 Patient seen and evaluated in follow-up today and tolerating the clear liquids. Patient is voiding post greenfield catheter removal and recommend monitoring for retention and may replace greenfield if retaining. Multiple medical consultations following and pulmonary has cleared the patient for discharge to ecf with close outpatient follow up. Recommend PT daily. Patient had a bowel movement and will discuss with surgery about discharge. Patient is afebrile and denies worsening shortness of breath. No chest pain reported. Overall generalized weakness noted. Review of Systems Constitutional: No Reports of fatigue, denied any fever. Cardio vascular: denied any chest pain, palpitations Gastrointestinal: denied any nausea, vomiting, or diarrhea, passing gas and had a bm Pulmonary: no Reports of worsening shortness of breath Neurologic reports weakness All inpatient medications were reviewed and appropriate changes in these medications as dictated in the interval history and assessment and plan. PHYSICAL EXAMINATION: GENERAL: The patient is alert and oriented x3. Well developed, well nourished. sitting up in the chair. Obese. HEENT: Pupils are round and equally reacting to light. EOMI. No scleral icterus. No conjunctival pallor. Normocephalic, atraumatic. No pharyngeal erythema. No thyromegaly. CARDIOVASCULAR: S1 and S2 muffled PULMONARY: Scattered, coarse lung sounds bilaterally. ABDOMEN: Soft, nontender, less distended, normoactive bowel sounds. No palpable organomegaly. Round, obese. MUSCULOSKELETAL: No joint swelling or deformity. EXTREMITIES: No cyanosis, clubbing, or pedal edema. NEUROLOGICAL: Gross neurological examination did not reveal any focal deficits. Diffuse generalized weakness. SKIN: No rashes. Assessment: Acute COPD exacerbation and tracheobronchitis, improving Acute hypoxemic respiratory failure secondary to above, has been weaned off BiPAP/Airvo support and currently on 2L nasal cannula SVT/Atrial fibrillation with rapid rate converted to normal sinus rhythm Hypertension currently hypotensive, improving on midodrine. Ruled out GI bleed On EGD colonoscopy, most likely erosive esophagitis Hypernatremia, resolved currently hyponatremic, improving with samsca Acute kidney injury, initially resolved, creatinine elevated from hypotension and component of urinary retention Urinary retention with indwelling greenfield catheter, catheter removed 12-[address] noted on CT Diabetes Mellitus type 2 A1C 6.5. Ileus, redemonstrated on recent xray 07/27/22 BPH Prior history of smoking History of throat cancer and vocal cord status post radiation 2015 GI prophylaxis DVT prophylaxis Full Code Plan: Continue oxygen supplementation, currently on 2 L via NC, Pulmonary following and continued on pred taper and duoneb treatments. Currently on 30mg PO prednisone Patient with abdominal pain improvement and reports to passing gas and had a bowel movement. Surgery following and diet being advanced to clear liquids Short term amiodarone therapy for one month and then discontinue per cardiology Patient started on midodrine, verapamil on hold. Continue Flomax, indwelling catheter removed per nephrology EGD/Colonoscopy done per report shows a poor bowel prep with no evidence of GI bleeding in the colonoscopy and most likely secondary to erosive esophagitis and biopsies were obtained Oral Lasix daily per nephrology and follow up am labs ordered. post samsca and sodium is improved POtassium is 3.3 and recommend to replace per protocol. Mag is 1.5 today, being replaced and repeat labs ordered Continues on oral steroid taper, now at 30 mg. Pulmonary following and has cleared the patient for dc to ecf Recommend getting up out of the bed multiple times per day. Subacute rehab on discharge when medically stable Recommend PT/OT daily Case management following and possible discharge to [facility] in 24-48 hours Overall prognosis remains guarded. The impression and plan of care has been dictated by Tiffanie Kauffman, Nurse Practitioner as directed. Dr. Cara MD I have performed a history and examination and MDM of this patient, discussed the same with the dictator, and agree with the dictator's assessment and plan as written ,documented as a scribe. Based on total visit time, I have performed more than 50% of the visit. Objective - Vital Signs Vital signs: Vital Signs Temp 97.9 F 07/30/22 07:45 Pulse 78 07/30/22 08:48 Resp 18 07/30/22 07:45 BP 103/54 07/30/22 07:45 Pulse Ox 97 07/30/22 08:36 FiO2 35 07/17/22 11:06 Intake & Output 07/29/22 07/30/22 07/30/22 18:59 06:59 18:59 Output Total 2700 1250 Balance -2700 -1250 Weight 82.5 kg 80.5 kg Output: Urine 2700 1250 Other: Voiding Method Indwelling Catheter Indwelling Catheter - Labs CBC & Chem 7: 07/29/22 09:14 07/30/22 06:09 Labs: Abnormal Lab Results - Last 24 Hours (Table) 07/29/22 07/29/22 07/29/22 Range/Units 09:14 09:14 11:51 RBC 3.31 L (4.30-5.90) m/uL Hgb 10.0 L (13.0-17.5) gm/dL Hct 29.2 L (39.0-53.0) % Plt Count 104 L (150-450) k/uL Lymphocytes # 0.6 L (1.0-4.8) k/uL Sodium 130 L (137-145) mmol/L Potassium 3.3 L (3.5-5.1) mmol/L Chloride 94 L (98-107) mmol/L Carbon Dioxide 34 H (22-30) mmol/L BUN 34 H (9-20) mg/dL Creatinine 1.39 H (0.66-1.25) mg/dL Glucose 155 H (74-99) mg/dL POC Glucose (mg/dL) 275 H (70-110) mg/dL Calcium 7.3 L (8.4-10.2) mg/dL 07/29/22 07/29/22 07/30/22 Range/Units 16:47 20:52 01:33 RBC (4.30-5.90) m/uL Hgb (13.0-17.5) gm/dL Hct (39.0-53.0) % Plt Count (150-450) k/uL Lymphocytes # (1.0-4.8) k/uL Sodium (137-145) mmol/L Potassium (3.5-5.1) mmol/L Chloride (98-107) mmol/L Carbon Dioxide (22-30) mmol/L BUN (9-20) mg/dL Creatinine (0.66-1.25) mg/dL Glucose (74-99) mg/dL POC Glucose (mg/dL) 182 H 132 H 118 H (70-110) mg/dL Calcium (8.4-10.2) mg/dL
[2022-07-31 06:40] LABS: Glucose,Whole Blood 85 mg/dL (70-110)
[2022-07-31] MEDS: INSULIN ASPART (NovoLOG) 100 UNIT/ML VIAL SQ SCH ×8 (06:41→21:16)
[2022-07-31] MEDS: INSULIN DETEMIR (LEVEMIR) 100 UNIT/ML SYR SQ SCH ×2 (06:45→21:16)
[2022-07-31] MEDS: PANTOPRAZOLE 40 MG/10 ML VIAL IVP SCH (08:06)
[2022-07-31] MEDS: IPRATROPIUM-ALBUTEROL 3 ML NEB INHALATION SCH ×5 (09:37→20:01)
[2022-07-31] MEDS: SYMBICORT 160-4.5 MCG INHALER INHALATION SCH ×2 (09:37→20:01)
[2022-07-31] MEDS: predniSONE 10 MG TAB PO SCH (10:00)
[2022-07-31] MEDS: bisacodyL 10 MG SUPP RECTAL SCH (10:01)
[2022-07-31] MEDS: AMIODARONE 200 MG TAB PO SCH ×2 (10:01→21:16)
[2022-07-31] MEDS: MIDODRINE 5 MG TAB PO SCH ×3 (10:01→16:51)
[2022-07-31] MEDS: CALCIUM CARBONATE 500 MG CHEWABLE PO SCH ×4 (10:01→21:15)
[2022-07-31] MEDS: FAMOTIDINE 20 MG TAB PO SCH (10:01)
[2022-07-31] MEDS: FUROSEMIDE 40 MG TAB PO SCH (10:01)
[2022-07-31] MEDS: TAMSULOSIN 0.4 MG CAP.ER.24H PO SCH (10:01)
[2022-07-31] MEDS: ALVIMOPAN 12 MG CAPSULE PO SCH ×2 (10:01→21:16)
[2022-07-31] MEDS: SIMETHICONE 40 MG/0.6 ML DROPS 2,000 MG/30 ML BOTTLE PO SCH ×4 (10:11→21:17)
[2022-07-31 10:36] LABS: African American GFR (CKD) 56.5 (60.0-200.0); Anion Gap 9.4 mmol/L (10.00-18.00); BUN/Creat Ratio 12.81 Ratio (12.00-20.00); Blood Urea Nitrogen 18.7 mg/dL (9.0-27.0); Calcium 7.9 mg/dL (8.7-10.3); Carbon Dioxide 30.4 mmol/L (20.0-27.5); Magnesium 1.8 mg/dL (1.5-2.4); Non-African American GFR(CKD) 48.7 (60.0-200.0); Potassium 3.5 mmol/L (3.5-5.5)
[2022-07-31 10:55] LABS: Glucose,Whole Blood 153 mg/dL (70-110)
[2022-07-31] MEDS ORDERED: POTASSIUM CHLORIDE ER 20 MEQ TAB.ER PO STA (12:19)
--- NOTE | 2022-07-31 12:20 | P.PN ---
Subjective Nephrology was reconsulted due to acute kidney injury. Renal function stable. Creatinine 1.5 today. Tolerating clear liquid diet. Denies chest pain or shortness of breath. Nonoliguric. On oral Lasix. Rojas catheter removed but his post void residual was over 400 mL this morning. Vital signs are stable. General: Awake. No acute distress. HEENT: Head exam is unremarkable. LUNGS: Breath sounds decreased. HEART: Rate and Rhythm are regular. ABDOMEN: Soft, distention noted. EXTREMITITES: Trace edema. Objective - Vital Signs Vital signs: Vital Signs Temp 97.4 F L 07/31/22 07:41 Pulse 88 07/31/22 09:51 Resp 13 07/31/22 07:41 BP 105/61 07/31/22 07:41 Pulse Ox 98 07/31/22 07:41 FiO2 35 07/17/22 11:06 Intake & Output 07/30/22 07/31/22 07/31/22 18:59 06:59 18:59 Intake Total 1100 Output Total 1275 400 375 Balance -175 -400 -375 Weight 76 kg Intake: Intake, IV Titration 200 Amount Magnesium Sulfate-D5w Pmx 200 1 gm In Dextrose/Water 1 100ml.bag @ 100 mls/hr IVPB Q1H ALLIE Rx#: [id number] Oral 900 Output: Urine 1275 400 375 Other: Voiding Method Indwelling Catheter External Catheter # Voids 1 2 # Bowel Movements 0 - Labs CBC & Chem 7: 07/29/22 09:14 07/31/22 06:26 Labs: Abnormal Lab Results - Last 24 Hours (Table) 07/30/22 07/31/22 07/31/22 Range/Units 16:04 01:45 06:26 Sodium 134 L (135-145) mmol/L Chloride 94 L (96-109) mmol/L Carbon Dioxide 30.4 H (20.0-27.5) mmol/L Anion Gap 9.40 L (10.00-18.00) mmol/L Est GFR (CKD-EPI)AfAm 56.5 L (60.0-200.0) Est GFR (CKD-EPI)NonAf 48.7 L (60.0-200.0) Glucose 69 L (70-110) mg/dL POC Glucose (mg/dL) 226 H 116 H (70-110) mg/dL Calcium 7.9 L (8.7-10.3) mg/dL 07/31/22 Range/Units 10:53 Sodium (135-145) mmol/L Chloride (96-109) mmol/L Carbon Dioxide (20.0-27.5) mmol/L Anion Gap (10.00-18.00) mmol/L Est GFR (CKD-EPI)AfAm (60.0-200.0) Est GFR (CKD-EPI)NonAf (60.0-200.0) Glucose (70-110) mg/dL POC Glucose (mg/dL) 153 H (70-110) mg/dL Calcium (8.7-10.3) mg/dL Assessment and Plan Plan: Assessment: 1. Acute kidney injury secondary to hemodynamic ATN. Renal function stable. Creatinine 1.5 today. No hydronephrosis noted on CAT scan. 2. Ileus. Surgery following. 3. A. fib. Cardiology following. Rate controlled. On oral amiodarone. 4. Diabetes mellitus. 5. Volume overload. Maintained on Lasix. 6. Urinary retention. On Flomax. 7. Hypokalemia from diuresis. Replace. Better. 8. Hyponatremia. Hypervolemic. Better. [facility]. 9. Hypomagnesemia from diuresis. Replaced. Better. Plan: Decreased Lasix to 40 mg once daily. Replace potassium. Continue to monitor renal function and urine output. Avoid nephrotoxins. Straight cath now. If repeat PVR is greater than 300 mL, 40 catheter will be reinserted. Discussed with nurse.
[2022-07-31] MEDS ORDERED: LACTULOSE 20 GM/30 ML CUP PO SCH (13:30)
--- NOTE | 2022-07-31 14:14 | P.PN ---
Subjective Progress Note Date: 07/31/22 CHIEF COMPLAINT: Ileus in HISTORY OF PRESENT ILLNESS: Patient admitted to the hospital with shortness of breath evidence of COPD exacerbation, bronchitis and SVT. Patient did have a bowel movement today. Denies any nausea or vomiting. He is having flatus. He reports overall just not feeling well. He reports difficulty with sleeping. He did receive melatonin last night without improvement of sleep. Afebrile Patient seen and examined with Dr. Jim PHYSICAL EXAM: VITAL SIGNS: Reviewed. GENERAL: Well-developed in no acute distress. ABDOMEN: Soft. distended. Nontender ASSESSMENT: 1. GI bleed resolved. Likely due to erosive esophagitis 2. Ileus 2. Acute COPD exacerbation with acute hypoxic respiratory failure 3. SVT and AFIB 4. Hypokalemia and hypomagnesemia improved PLAN: -Lactulose ordered to help with BMs -Advance diet to full liquids -Continue to increase activity level -Continue PPI Physician Compatibility Test Engineer note has been reviewed by physician. Signing provider agrees with the documented findings, assessment, and plan of care. Objective - Vital Signs Vital signs: Vital Signs Temp 97.4 F L 07/31/22 07:41 Pulse 88 07/31/22 09:51 Resp 13 07/31/22 07:41 BP 105/61 07/31/22 07:41 Pulse Ox 98 07/31/22 07:41 FiO2 35 07/17/22 11:06 Intake & Output 07/30/22 07/31/22 07/31/22 18:59 06:59 18:59 Intake Total 1100 Output Total 1275 400 925 Balance -175 -400 -925 Weight 76 kg 76 kg Intake: Intake, IV Titration 200 Amount Magnesium Sulfate-D5w Pmx 200 1 gm In Dextrose/Water 1 100ml.bag @ 100 mls/hr IVPB Q1H [facility] Rx#: [id number] Oral 900 Output: Urine 1275 400 925 Straight 550 Other: Voiding Method Indwelling Catheter External Catheter # Voids 1 2 # Bowel Movements 0 - Labs CBC & Chem 7: 07/29/22 09:14 07/31/22 06:26 Labs: Abnormal Lab Results - Last 24 Hours (Table) 07/30/22 07/31/22 07/31/22 Range/Units 16:04 01:45 06:26 Sodium 134 L (135-145) mmol/L Chloride 94 L (96-109) mmol/L Carbon Dioxide 30.4 H (20.0-27.5) mmol/L Anion Gap 9.40 L (10.00-18.00) mmol/L Est GFR (CKD-EPI)AfAm 56.5 L (60.0-200.0) Est GFR (CKD-EPI)NonAf 48.7 L (60.0-200.0) Glucose 69 L (70-110) mg/dL POC Glucose (mg/dL) 226 H 116 H (70-110) mg/dL Calcium 7.9 L (8.7-10.3) mg/dL 07/31/22 Range/Units 10:53 Sodium (135-145) mmol/L Chloride (96-109) mmol/L Carbon Dioxide (20.0-27.5) mmol/L Anion Gap (10.00-18.00) mmol/L Est GFR (CKD-EPI)AfAm (60.0-200.0) Est GFR (CKD-EPI)NonAf (60.0-200.0) Glucose (70-110) mg/dL POC Glucose (mg/dL) 153 H (70-110) mg/dL Calcium (8.7-10.3) mg/dL
[2022-07-31] MEDS: LACTULOSE 20 GM/30 ML CUP PO SCH ×2 (14:33→21:15)
--- NOTE | 2022-07-31 16:38 | P.PN ---
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 The patient is currently being seen in the intensive care unit for alcohol withdrawal was and hypoxic respiratory failure. This morning, is awake and alert and there is no significant agitation. He remains on high flow oxygen at 45 L with an FiO2 of 56%. His current pulse ox is around 89%. Note that he had a CT angiogram at time of admission that showed no evidence of any pulmonary embolism. It showed emphysema and mild portal fibrosis. His resting comfortably in bed. He has no significant shortness of breath at rest. The same time, the patient has been in normal sinus rhythm. Noted at the time of admission, he was in atrial fibrillation and he was treated with a Cardizem drip and currently is off the drip. He is also off Precedex for now. Neurologically, he is alert and oriented 3. His most recent chest x-ray from yesterday showing some atelec tatic changes in the lung bases and emphysema. Otherwise no other major abnormalities are noted. In terms of treatment, the patient is currently on DuoNeb about treatments [id number], he is on Pulmicort Respules 1 mg twice a day, he is on IV Solu-Medrol 40 mg every 6 hours. Is also on performance 1 nevertheless treatment twice a day. He is covered with antibiotics and the patient is receiving Rocephin 2 g every 24 hours. His blood cultures from this admission is negative. The white cell count is at 12 with a hemoglobin of 14.7 and a platelet count of 188. BUN is 44 with a creatinine of 1.1 and sodium levels of 137. In terms of his viral screen, the patient had a negative Covid 19 infection. Influenza screen was negative at the time of admission. On today's evaluation of 07/16/2022, the patient remains on high flow oxygen at 45 L with an FiO2 of 50%. The patient is feeling better and less short of breath compared to yesterday. No significant cough or sputum production. The patient was offered an incentive spirometer and the patient is able to generate adequate volumes on the incentive spirometer, nevertheless, the values remain less than 500 mL. The patient is on IV Rocephin. The patient was growing Haemophilus influenza in his sputum. At the same time, the patient remains on bronchodilators and he is on DuoNeb neb blotchiness 4 times a day, he is on a combination of Perforomist and Pulmicort neb less treatments twice a day and IV Solu-Medrol and the doses 40 mg IV every 6 hours. He was started on diuretics and to dose of Lasix will be given to him today. In terms of his blood work, his sodium level is at 137 with a potassium level of 4.4, BUN of 44 with a creatinine of 1.05 with RBC count of 12 a hemoglobin 14.8 and a platelet count of 148. LFTs are essentially within normal limits. On today's evaluation of 07/17/2022, the patient has no specific complaints. The patient is gradually improving. This morning, the patient was weaned down to 40 liters with an FiO2 of 35% high flow oxygen. The patient is otherwise doing well. He is using the incentive spirometer. He is still coughing and his cough is congested. Unable to bring up much sputum. He was diuresis yesterday and he has been negative fluid balance for now. BUN is a 53 with a creatinine of 1.29 his sodium levels is 135. The patient's WBC count is at 16.4 with a hemoglobin of 14.5. Remains on DuoNeb about treatments [id number]. Remains on IV Solu-Medrol. No altered mentation. No chest pain. Remains quite weak and his been having generalized global weakness. He is on Levemir 14 units daily twice a day and the patient is on NovoLog 40 units with meals and a sliding scale coverage. No altered mentation. No other new complaints. 07/18/2022, patient is doing well. The patient has been taken off the high flow oxygen the patient is currently on 4 L of O2 nasal cannula. No new complaints. IV Solu-Medrol was then tapered down to 20 mg every 8 hours. Limited cough. No significant congestion. So bronchospastic and wheezy. Air entry is quite limited in the lung bases bilaterally. He has advanced COPD.Transferred out of the intensive care unit yesterday. He is using the incentive spirometer. On his blood work, the patient has a white cell count of 8.9 with a hemoglobin of 12.4 count of 264. The patient has a BUN of 17 with a creatinine of 0.6 and his sodium level is 145. LFTs are normal. On 07/19/2022, I'm seeing the patient for a follow-up. The patient is currently on 4 L of oxygen by nasal cannula. No new complaints. He remains on IV Solu- Medrol 40 mg every 6 hours. He remains on DuoNeb about treatments on the clock. He is still very weak and he may need rehabilitation. He was transferred out of the intensive care unit few days back. echoes at 70 with a hemoglobin of 15.3 and a platelet count of 202. BUN is at 80 with a creatinine of 1.9 and there is a slight rise in the creatinine compared to yesterday's blood work. This is probably related to diuresis. 07/20/2022, the patient is still on 4 L of Oxymizer nasal cannula. Overall respiratory status is stable. Nevertheless, the patient was having some issues with obstructive uropathy. The optical manager was consulted. The patient is having frequent bladder scans. Flomax was also added to the regimen at a dose of 0.4 mg on a daily basis. The patient's creatinine currently is at 1.9 and the BUN is 89 with a sodium level of 133. Diuretics were held. echoes at 60 with a hemoglobin 12.7. Potassium is at 4.8. LFTs are normal. The patient remains on DuoNeb about treatments [id number]. The patient remains on IV Solu-Medrol at a dose of 40 mg every 6 hours. No diuretics for now. 07/21/2022, the patient remains on 4 L of O2 nasal cannula. He was able to sit up on a recliner for next 10. Time yesterday. He stated a Rojas catheter in place. Creatinine is being monitored. he remains on DuoNeb neb on the clock is also on IV Solu-Medrol was tapered down to 40 mg every 6 hours. The patient started developing some colored mucus and for that reason, another sputum analysis will be done today. His tolerating diet. His oral intake is gradually improving. He is quite weak and debilitated. He may need an ECF placement at a later stage. No other new complaints for now. Family is at the bedside. I lengthy discussion with the patient's family The blood work from today shows a white cell count of 12.4 with a hemoglobin of 11.8. Sodium is at 131, BUN is 97 with a creatinine of 1.85 and the rest of the liver function tests are essentially within normal limits. The patient is seen today 07/22/2022 in follow-up on the regular medical floor. He is currently sitting up in a chair at the bedside. Awake and alert in no acu te distress. Maintaining O2 saturations in the 90s on 4 L/m per nasal cannula. Blood cultures revealed no growth. Sputum culture pending. White count 13.7. Hemoglobin 12.6. Sodium 132. Potassium 5.7. Bicarb 28. BUN 105. Creatinine 2.08. Glucose 139. He is continued on DuoNeb inhalations, Pulmicort and Perforomist inhalations, prednisone taper. The patient is seen today 07/23/2022 in follow-up on the regular medical floor. He is awake and alert in no acute distress. Sitting up in a chair at the bedside. Maintaining O2 saturations in the 90s on 4 L/m per nasal cannula. Blood and sputum cultures revealed no growth. White count 11.8. Hemoglobin 11.2. Sodium 129. Potassium 4.7. BUN 103. Creatinine 1.86. Glucose 77. Remains on DuoNeb inhalations, Pulmicort and Perforomist inhalations, prednisone taper. The patient's stool was positive for occult blood. The plan is for EGD/colonoscopy on 07/25/2022. Currently on a clear liquid diet. The patient is seen today 07/24/2022 in follow-up on the regular medical floor. Currently sitting up in a chair at the bedside. Awake and alert in no acute distress. He is maintaining good O2 saturations in the 90s on 4 L/m per nasal cannula. No worsening shortness of breath, cough or congestion. White count 8.9. Hemoglobin 10.6. Sodium 130. Potassium 4.8. BUN 77. Creatinine 1.6. Glucose 70. He received Lasix 40 mg IVP 1 today. Currently in a negative balance. Remains on DuoNeb inhalations, Pulmicort and Perforomist inhalations, prednisone taper. He is awaiting a EGD/colonoscopy tomorrow. The patient is seen today 07/25/2022 in follow-up on the regular medical floor. He is awake and alert in no acute distress. Currently sitting up in bed. He was having some issues with emesis earlier. Clear fluid returned. He has been on a bowel prep. He is currently maintaining O2 saturations in the high 90s on 4 L nasal cannula. His lung sounds are clear. No shortness of breath, cough or congestion. Sputum culture revealed no growth. Sodium 129. Potassium 4.0. BUN 66. Creatinine 1.40. He remains on Symbicort, DuoNeb inhalations. Oral diuretics. Prednisone taper. Plan is for EGD/colonoscopy today. The patient is seen today 07/26/2022 in follow-up on the regular medical floor. Currently sitting up in a chair at the bedside. Eating lunch. He did undergo EGD and partial colonoscopy. Not completed due to poor prep. He was found to have duodenitis, antral gastritis, erosive esophagitis, diverticulosis. No active bleeding noted. Computed tomography scan of the abdomen today revealed g eneralized anasarca. Trace to small bilateral effusions with adjacent atelectasis. Trace to small abdominal ascites. Small to moderate anterior pericardial effusion. Cecal dilatation of 10.0 cm. There is contiguous air distention of the distal ileum up to 3.5 cm in the ascending and transverse colon up to 6.3 cm. Blood cultures revealed no growth. Sputum culture revealed no growth. White count 5.8. Hemoglobin 10.5. Platelets 129. Sodium 127. Potassium 3.7. BUN 41. Creatinine 1.21. Glucose 161. He remains on DuoNeb inhalations, Symbicort, prednisone taper. Oral diuretics. The patient is seen today 07/27/2022 in follow-up on the regular medical floor. He is currently sitting up in a chair at the bedside. Awake and alert in no acute distress. Maintaining O2 saturations in the 90s on 2 L/m per nasal cannula. Afebrile. Denies any worsening abdominal discomfort. Blood cultures revealed no growth. Sputum culture revealed no growth. White count 7.4. Hemoglobin 10.6. Sodium 137. Potassium 3.8. BUN 35. Creatinine 1.5. Glucose 200. He remains on DuoNeb inhalations, Symbicort, prednisone taper. Oral diuretics. The patient is seen today 07/29/2022 in follow-up on the regular medical floor. He is awake and alert in no acute distress. Sitting up in bed. Maintaining O2 saturations in the 90s on 2 L/m per nasal cannula. Abdominal x-ray reveals persistent gaseous dilatation throughout the bowel seen on prior CT. Findings correlate with ileus. Evidence of COPD. Sputum culture revealed no growth. Blood cultures revealed no growth. White count 4.3. Hemoglobin 10.0. Sodium 1:30. Potassium 3.3. BUN 34. Creatinine 1.39. Glucose 155. He is continued on Symbicort, DuoNeb inhalations, prednisone taper. Surgical services are on the case. Diet is advanced to liquids. The patient is seen today 07/30/2022 follow-up on the regular medical floor. He is sitting up in a chair at the bedside. Awake and alert in no acute distress. Maintaining good O2 saturations in the 90s on 2 L/m per nasal cannula. Blood cultures reveal no growth. Sputum culture revealed no growth. Sodium 134. Potassium 3.3. BUN 24. Creatinine 1.5. Glucose 123. Continue on Symbicort, DuoNeb inhalations, prednisone. The patient is seen today 07/31/2022 in follow-up on the regular medical floor. He is sitting up in bed. Awake and alert in no acute distress. Continues to maintain good O2 saturations in the 90s on 2 L/m per nasal cannula. No IV fluids. Sputum culture revealed no growth. Blood cultures revealed no growth. Sodium 134. Potassium 3.5. BUN 19. Creatinine 1.5. Glucose 69. He has been advanced to a full liquid diet per surgical services. Continue on Symbicort, DuoNeb inhalations, prednisone. Objective - Vital Signs Vital signs: Vital Signs Temp 97.7 F 07/31/22 14:00 Pulse 85 07/31/22 14:00 Resp 12 07/31/22 14:00 BP 110/65 07/31/22 14:00 Pulse Ox 97 07/31/22 14:00 FiO2 35 07/17/22 11:06 Intake & Output 07/30/22 07/31/22 07/31/22 18:59 06:59 18:59 Intake Total 1100 Output Total 4901 965 9654 Balance -175 -400 -1345 Weight 76 kg 76 kg Intake: Intake, IV Titration 200 Amount Magnesium Sulfate-D5w Pmx 200 1 gm In Dextrose/Water 1 100ml.bag @ 100 mls/hr IVPB Q1H [facility] Rx#: [id number] Oral 900 Output: Urine 7690 284 6277 Straight 550 Other: Voiding Method Indwelling Catheter External Catheter # Voids 1 2 # Bowel Movements 0 - Exam Alert, oriented, 66-year-old male, no acute distress, currently on 2 L nasal cannula. HEENT examination is grossly unremarkable. Neck supple. Full range of motion. No adenopathy thyromegaly or neck vein distention. Cardiovascular examination reveals regular rhythm rate. S1-S2 normal. No S3 or S4. No discernible murmur noted. Heart sounds are distant. Lungs reveal no crackles, wheeze or rhonchi. Diminished Abdomen , obese, soft, hypoactive bowel sounds. No masses or tenderness. Extremities are intact. No cyanosis clubbing or edema. Skin is without rash or lesion.Examination of the skin revealed no evidence of significant rashes, suspicious appearing nevi or other concerning lesions. Neurologic examination Neurologically, the patient is awake and alert and the patient does not have any focal neurological deficit. Cranial nerves are essentially intact. - Labs CBC & Chem 7: 07/29/22 09:14 07/31/22 06:26 Labs: Abnormal Lab Results - Last 24 Hours (Table) 07/31/22 07/31/22 07/31/22 Range/Units 01:45 06:26 10:53 Sodium 134 L (135-145) mmol/L Chloride 94 L (96-109) mmol/L Carbon Dioxide 30.4 H (20.0-27.5) mmol/L Anion Gap 9.40 L (10.00-18.00) mmol/L Est GFR (CKD-EPI)AfAm 56.5 L (60.0-200.0) Est GFR (CKD-EPI)NonAf 48.7 L (60.0-200.0) Glucose 69 L (70-110) mg/dL POC Glucose (mg/dL) 116 H 153 H (70-110) mg/dL Calcium 7.9 L (8.7-10.3) mg/dL Assessment and Plan Assessment: Acute hypoxemic respiratory failure secondary to COPD exacerbation and the patient presented with acute hypoxic and hypercapnic respiratory failure. Oxygenation has improved. Remains on 2 liters nasal cannula. Severe COPD and the patient has an FEV1 of 39% of predicted at baseline and this is based on spirometry that was done on 09/28/2020. The patient has been maintained on Advair and DuoNeb about treatments [id number].. Delirium, recovered Acute kidney injury and the creatinine is currently 1.5. GFR of 48 Acute tracheobronchitis. Recovered Supraventricular tachycardia/atrial fibrillation with RVR. Patient is currently on normal sinus rhythm. The patient is also on anticoagulation with Eliquis. The patient has a normal LV function History of laryngeal carcinoma, in remission, status post radiation treatment, diagnosed in 2017. Acute hypercapnic respiratory failure secondary to severe COPD. GI bleed with positive stool for occult blood, current hemoglobin 10.6. Plans for EGD/colonoscopy revealed duodenitis, antral gastritis, erosive esophagitis, diverticulosis. No active bleeding. Cecal dilatation of 10 cm with distention in the distal ileum to the ascending and transverse colon Plan: The patient was seen and evaluated Medications and labs reviewed Continue a prednisone taper, Symbicort, albuterol Diet has been advanced to full liquids Cleared for transfer to [facility] once cleared by surgery I have personally seen and examined the patient, performed the documentation and the assessment and plan as written. Number of minutes spent on the visit: 10.
[2022-07-31 16:40] LABS: Glucose,Whole Blood 78 mg/dL (70-110)
--- NOTE | 2022-07-31 19:25 | P.PN ---
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 Patient tried breathing treatments at home without much relief. Patient was tachycardic on admission with heart rate in 160s and was found to be SVT patient was given Ellenson in the ER. Otherwise denied any complaints of chest pain. No nausea vomiting or abdominal pain. Denied any increased leg swelling. No fever no chills. No prior history of SVT. Chest x-ray showed COPD. No active cardiopulmonary disease. Mild pulmonary fibrotic changes. No significant change. CTA chest showed no evidence of PE. Emphysema and mild pulmonary fibrosis. No suspicious pulmonary mass. Laboratory data showed WBC 16.0 hemoglobin 16.0 and platelets 269 Sodium 139 potassium four-point 102 bicarb is 20 BUN 16 and creatinine 0.87 and lactic acid 2.7 Troponin x1 negative and proBNP is 378 TSH 0.49 6 Coronavirus and influenza AMB not detected. Urinalysis is negative for infection. 07/08/2022 Patient continues to be monitored in intensive care unit mostly on BiPAP support but able to be weaned to 3 to 4 L of oxygen via nasal cannula. He is unsure when he has had bowel movement and has limited to no bowel sounds for this reason abdominal xray has been performed showing mildly distended small bowel loops and some segments of colon as well. Consider generalized ileus and difficult to exclude the possibility of a distal colonic obstruction. White blood cell count today 6.1, sodium 144, potassium 4.6, BUN 40, creatinine 0.99, blood glucose 150, magnesium 2.4. Procalcitonin 0.55. Vitals today, patient is afebrile, heart rate 71, blood pressure 121/64, 95% oxygen saturation. Patient has been maintained on dexmedetomidine for acute anxiety which is currently paused. Continues on IV Solu-Medrol, and bronchodilators. Patient is currently on IV cardizem gtt for tachycardia and will be transitioned to oral verapamil today, cardiology is following. 07/09/2022 Patient continues to be monitored in intensive care unit. White count elevated up to 12.4 today he has expiratory wheezing on exam changed from yesterday. Patient requiring bipap at 35% FiO2 currently. He did have low grade fever this morning 99 and is receiving acetaminophen as needed. chest xray today showing chronic emphysema and pulmonary fibrotic change. Procalcitonin level elevated at 0.55. IV ceftriaxone increased to 2 gram every 24 hours. Patient is continued on bronchodilators. Continues on IV solumedrol 60 mg q6h. Dexmedetomidine possibly being weaned off today, seroquel and haldol ordered with ativan as needed. Patient continues with significant abdominal distention and absent bowel sounds left lower quadrant. Did not receive lactulose yesterday. General surgery was consulted for further evaluation, currently placed NPO for possible ileus /bowel obstruction. He is hypertensive today with systolic in the 180s has been started on verapamil TID and also hydralazine 50 BID. Cardiology following. 07/10/2022 Patient evaluated today on BiPAP, fio2 has been increased to 40%, he is using accessory muscles to breath and appears quite aggitated. He is on combination of haldol, seroquel for this. Additionally, he was started on nicotine patch and clonidine patch. NG tube has been placed, patient has not had a BM. Abdominal Pelvis CT completed showing no CT evidence for small bowel obstruction. Patient also had follow up chest xray today showing COPD changes and no acute disease. Never the less he appears to have some respiratory distress requiring BiPAP. white count 11.7 today, sodium 149, BUN 47, creatinine 1.05, blood glucose 170s. Patient has been placed on amiodarone infusion and also heparin gtt as patient is unable to take oral medications currently. He continues on antibiotics. Continues on IV solumedrol. 07/11/2022 Patient is monitored in intensive care unit. Continues with NG tube. Tube feedings have been resumed with vital AF 1.2 with goal of 55 mls per hour. Currrently running at 20 mLs/hour. Patient has free water flush 30 mL every 4 hours, would like to increase free water and discontinue IV fluids. Sodium level today 148, potassium 4.1, chloride 110, BUN 51, creatinine 1.08. Blood glucose in the 240s and insulin has been increased. Patient is receiving lactulose, had fleet enema today. Has not had a BM this admission, bowel sounds in all 4 quadrants today. Amiodarone has been discontinued. Continues on oral verapamil. Heart rate is improving. Patient trialed on airvo 60/60 today. Chest xray showing no focal consolidation. 07/12/2022 Patient is evaluated in ICU, family at bedside. Continues on Airvo 60/60, reports non productive cough. Diffuse weakness. Abdomen distended seems worse than yesterday. Discussed with surgery. Tube feedings have been placed on hold and patient started on daily suppositories. Otherwise continues on empiric ceftriaxone. Chest xray showing COPD with possible underlying pulmonary vascular congestion. Sodium up to 150 today, nephrology consulted. Patient has been started on D5% water at 75 mls per hour. BUN 55 creatinine 1.22 today. Blood glucose 230s. Heart rate 120s today, blood pressure 130/91, remains afebrile. 07/13/2022 Patient continue in Intensive Care unit. Continues on Airvo 60/60. He reports breathing improved today less short of breath. Lung sounds have improved and increased aeration. Less congested. No BM yet, has been started on dulcolax suppository daily. Increased bowel sounds today and abdomen is less distended. Remains on IV ceftriaxone. White count normalized to 9.9. Sodium remains at 150, BUN 51, creatinine 1.21. Blood glucose 200s. hgb A1c found to be 6.5 consistent with diagnosis of diabetes mellitus type 2. Continues on levemir with sliding scale and scheduled novolog coverage. Remains afebrile, heart rate 87, blood pressure 177/91, oxygen saturation 95%. IV steroids have been decreased today. Continues on oral cardizem, oral verapamil. Continues on D5 water at 75 mls per hour. 07/14/2022 Patient continues to be monitored closely in intensive care unit. He continues on Airvo 45/60, has tolerated weaning and continues to report improvement in work of breathing. No wheezing noted on exam today has some coarse scattered ronchi. NG tube remains in place, he did have BM. Will discuss with surgery if NG tube can be discontinued. Will add nystatin swish today which can be applied manually versus swishing. Patient remains diffusely weak has been on bedrest. No breakdown noted on skin. Continues on oral amiodarone, verapamil, anticoagulated with eliquis. Patient has been maintained on empiric antibiotic coverage with IV ceftriaxone, tomorrow will be day 5. white count has normalized consider discontinuing antibiotics tomorrow. Patient is maintaining sinus rhythm today heart rate 80s, blood pressure 159/78, 93% oxygen saturation, has remained afebrile. Labs today are improving, white count remains within normal limits at 10.4, sodium 142, potassium 4.5, chloride normalized to 104, BUN 48, creatinine 1.08. Blood glucose 160s to 200s. IV fluids have been changed to D5 1/2 NS at 50. Repeat labs tomorrow. Multiple consultations following. PT/OT has been consulted. 07/15/22. Patient seen and examined. Daughter at the bedside. Patient continues to be on heated high flow oxygen. States he feels better. Denies any nausea, vomiting. Case discussed with nursing staff 07/16/22. Patient seen and examined. Stated that he had a panic attack this morning, currently doing much better. Breathing is improving. Denies any chest pain. Continues to be on heated high flow 07/17/22. Patient seen and examined. Continues to be on heated high flow. Does not look any acute distress. 07/18/22. Patient seen and examined. Patient is transferred out of ICU. Currently on 4 L of oxygen. Gets short of breath on exertion. Otherwise patient is doing better compared to yesterday 07/19. Patient seen and examined. Continues to be on 4 L of oxygen. Creatinine has bumped up to 1.9. Gets short of breath on exertion. Patient is very weak 07/20. Patient seen and examined. Still gets short of breath on minimal exertion. Denies any chest pain. Not very keen to get out of the bed. Explained to him that he needs to get out of the bed 07/21. Patient seen and examined. Currently sitting in the chair. States he feels better compared to yesterday. Still complaining of productive cough 07/22/2022 Patient monitored sitting up in chair today. He continues on 4L nasal cannula. Hypotensive today blood pressures in the 80s systolic. 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 Verapamil has been placed on hold. Creatinine increased up to 2.08 today, most likely from acute hypotensive episode. He continues in sinus rhythm heart rate in the 70s. Potassium 5.7, sodium 132. Sputum culture pending. 07/23/2022 Patient sitting up in chair today. No acute events overnight. He does report some dizziness. Blood pressure on the lower side throughout the evening and he received a 500 mL fluid bolus. Started on midodrine yesterday as well. Blood pressure improved to 110s/50s. Continues on 4L nasal cannula. Surgery has been following for reports of maroon colored stools which patient reports have resolved, and he is scheduled to undergo EGD colonoscopy . Hgb 11.2. Creatinine improved to 1.8 today. He continues with indwelling catheter. 07/24/2022 Patient resting in bed today. Started goLytely prep for EGD/colonoscopy tomorrow. Reports worsening shortness of breath today. He has scattered wheezing today. Patient would benefit from lasix which nephrology has ordered an IV dose x 1 today, 40 mg and will start oral lasix 40 mg daily tomorrow. Hemoglobin remains stable at 10.6, sodium 130, BUN 77, creatinine 1.6 today. Blood glucose in the 70s, monitor closely. Decreased levemir and scheduled insulin. Continues with indwelling catheter. Blood pressure improved, 108/69. Continues on midodrine. 07/25/2022 Patient is seen in follow-up today with family at the bedside currently scheduled to undergo colonoscopy with EGD with general surgery today. Patient is currently maintained on 2-4 L of oxygen via nasal cannula and recommend wean FiO2 as tolerated. Nephrology following inpatient is maintained on Lasix that has been transitioned oral and increasing today to 40 mg twice daily and recommending repeat labs. Sodium on the lower side. Patient is currently nothing by mouth and will resume diet once done with endoscopy. Patient to continue with indwelling Greenfield catheter and also strongly recommend aspiration precautions along with continuing to monitor Accu-Cheks before meals and at bedtime. Patient is afebrile denies worsening shortness of breath or chest pain. Will await endoscopy report. 07/26/2022 Patient is seen and evaluated today post EGD/colonoscopy. Per report there was a poor bowel prep although parts visualized of the colonoscopy with no evidence of GI bleed and possibly secondary to erosive esophagitis. Multiple biopsies were obtained and patient will need follow-up outpatient. Hemoglobin is stable with no evidence of bleeding noted. Patient with abdominal distention ordered CT abdomen which is currently pending for this morning. Currently NPO per surgery recommendations. Continued on oral lasix with nephrology following. Sodium continues to be low and kidney functions elevated. Patient is asking for advance in diet as he has not had any real food in days due to recent colonoscopy prep. 07/27/2022 Patient is seen today and reports to feeling hungry and less pain in the abdomen. Patient being followed by surgery and recommending abdominal xray. Patient is passing gas with no bowel movement as of yet. Patient is NPO currently until cleared by surgery. CT was concerning of cecal dilatation and some ascites. Encouraged increased activity as tolerated and PT daily. Patient with progressive weakness and prolonged hospitalizations would greatly benefit from ECF on discharge. 07/28/2022 Patient is seen in follow up and abd xray shows ileus with abdominal distention. Surgery following and will continue NPO with ice chips and popsicles. Repeat abd xray ordered for am. Recommend repeat labs as well. Continued with pulmonary and nephrology following as well. Patient is afebrile and denies worsening shortness of breath. Patient denies chest pain. Patient reports to feeling hungry. 07/29/2022 Patient is seen today lying in bed. Multiple medical consultations following and xray from today continues to demonstrate ileus with contrast still noted in the bowel. Surgery following and has increased diet to clear liquids. Recommend aspiration precautions. Abdomen continues to be distended although non-tender per patient. Patient is afebrile and denies worsening shortness of breath. Pulmonary following and continued on oral prednisone taper along with breathing treatments. Encouraged incentive spirometer and increased activity as tolerated. Patient with significant weakness and prolonged hospitalization will require ECF once stabilized. Follow up am labs ordered. Recommend PT daily. 07/30/2022 Patient seen and evaluated in follow-up today and tolerating the clear liquids. Patient is voiding post greenfield catheter removal and recommend monitoring for retention and may replace greenfield if retaining. Multiple medical consultations following and pulmonary has cleared the patient for discharge to ecf with close outpatient follow up. Recommend PT daily. Patient had a bowel movement and will discuss with surgery about discharge. Patient is afebrile and denies worsening shortness of breath. No chest pain reported. Overall generalized weakness noted. 07/31/2022 Patient is seen and evaluated today currently sitting up in the chair. Patient reports to tolerating clear liquids. Patient did have a bout of loose brown stool that was sludgy per nursing staff. No bleeding noted. Patient being started on lactulose per surgery. Diet is being advanced per surgery. Nephrology following as well as pulmonary. Patient is continued on oral prednisone and duonebs. Patient is reporting to feeling extensive weakness. Greenfield was removed and was retaining and indwelling greenfield catheter replaced. Recommend to continue greenfield. Patient continues to report not sleeping well and have added low dose restoril. Review of Systems Constitutional: No Reports of fatigue, denied any fever. Cardio vascular: denied any chest pain, palpitations Gastrointestinal: denied any nausea, vomiting, or diarrhea, passing gas and had a bm that was loose Pulmonary: no Reports of worsening shortness of breath Neurologic reports weakness All inpatient medications were reviewed and appropriate changes in these medications as dictated in the interval history and assessment and plan. PHYSICAL EXAMINATION: GENERAL: The patient is alert and oriented x3. Well developed, well nourished. sitting up in the chair. Obese. HEENT: Pupils are round and equally reacting to light. EOMI. No scleral icterus. No conjunctival pallor. Normocephalic, atraumatic. No pharyngeal erythema. No thyromegaly. CARDIOVASCULAR: S1 and S2 muffled PULMONARY: Scattered, coarse lung sounds bilaterally. ABDOMEN: Soft, nontender, distended, normoactive bowel sounds. No palpable organomegaly. Round, obese. MUSCULOSKELETAL: No joint swelling or deformity. EXTREMITIES: No cyanosis, clubbing, or pedal edema. muscle wasting noted NEUROLOGICAL: Gross neurological examination did not reveal any focal deficits. Diffuse generalized weakness. SKIN: No rashes. Assessment: Acute COPD exacerbation and tracheobronchitis, improving Acute hypoxemic respiratory failure secondary to above, has been weaned off BiPAP/Airvo support and currently on 2L nasal cannula SVT/Atrial fibrillation with rapid rate converted to normal sinus rhythm Hypertension currently hypotensive, improving on midodrine. Ruled out GI bleed On EGD colonoscopy, most likely erosive esophagitis Hypernatremia, resolved currently hyponatremic, improving with samsca Acute kidney injury, initially resolved, creatinine elevated from hypotension and component of urinary retention Urinary retention with indwelling greenfield catheter, catheter removed 12-[address] noted on CT Diabetes Mellitus type 2 A1C 6.5. Ileus, redemonstrated on recent xray 07/27/22 BPH Prior history of smoking History of throat cancer and vocal cord status post radiation 2016 GI prophylaxis DVT prophylaxis Full Code Plan: Continue oxygen supplementation, currently on 2 L via NC, Pulmonary following and continued on pred taper and duoneb treatments. Currently on 30mg PO prednisone Patient with abdominal pain improvement and reports to passing gas and had a bowel movement that was loose and small. Lactulose added. Surgery following and diet being advanced to full liquids Difficulty in sleeping added restoril Short term amiodarone therapy for one month and then discontinue per cardiology Patient started on midodrine, verapamil on hold. Continue Flomax, indwelling catheter removed per nephrology and continued to re tain. Greenfield replaced EGD/Colonoscopy done with no evidence of GI bleeding in the colonoscopy and most likely secondary to erosive esophagitis and biopsies were obtained Oral Lasix daily per nephrology and follow up am labs ordered. post samsca and sodium is improved POtassium is to be replaced per protocol. Mag is improved today Continues on oral steroid taper, now at 30 mg. Pulmonary following and has cleared the patient for dc to ecf Recommend getting up out of the bed multiple times per day. Subacute rehab on discharge when medically stable Recommend PT/OT daily Case management following and possible discharge to [facility] in 24-48 hours Overall prognosis remains guarded. The impression and plan of care has been dictated by Tiffanie Kauffman, Nurse Practitioner as directed. Dr. Cara MD I have performed a history and examination and MDM of this patient, discussed the same with the dictator, and agree with the dictator's assessment and plan as written ,documented as a scribe. Based on total visit time, I have performed more than 50% of the visit. Objective - Vital Signs Vital signs: Vital Signs Temp 97.7 F 07/31/22 14:00 Pulse 85 07/31/22 14:00 Resp 12 07/31/22 14:00 BP 110/65 07/31/22 14:00 Pulse Ox 97 07/31/22 14:00 FiO2 35 07/17/22 11:06 Intake & Output 07/30/22 07/31/22 07/31/22 18:59 06:59 18:59 Intake Total 1100 Output Total 0214 635 4893 Balance -175 -400 -1095 Weight 76 kg 76 kg Intake: Intake, IV Titration 200 Amount Magnesium Sulfate-D5w Pmx 200 1 gm In Dextrose/Water 1 100ml.bag @ 100 mls/hr IVPB Q1H ALLIE Rx#: [id number] Oral 900 Output: Urine 4396 452 [id number] Straight 550 Other: Voiding Method Indwelling Catheter External Catheter # Voids 1 2 # Bowel Movements 0 - Labs CBC & Chem 7: 07/29/22 09:14 07/31/22 06:26 Labs: Abnormal Lab Results - Last 24 Hours (Table) 07/30/22 07/31/22 07/31/22 Range/Units 16:04 01:45 06:26 Sodium 134 L (135-145) mmol/L Chloride 94 L (96-109) mmol/L Carbon Dioxide 30.4 H (20.0-27.5) mmol/L Anion Gap 9.40 L (10.00-18.00) mmol/L Est GFR (CKD-EPI)AfAm 56.5 L (60.0-200.0) Est GFR (CKD-EPI)NonAf 48.7 L (60.0-200.0) Glucose 69 L (70-110) mg/dL POC Glucose (mg/dL) 226 H 116 H (70-110) mg/dL Calcium 7.9 L (8.7-10.3) mg/dL 07/31/22 Range/Units 10:53 Sodium (135-145) mmol/L Chloride (96-109) mmol/L Carbon Dioxide (20.0-27.5) mmol/L Anion Gap (10.00-18.00) mmol/L Est GFR (CKD-EPI)AfAm (60.0-200.0) Est GFR (CKD-EPI)NonAf (60.0-200.0) Glucose (70-110) mg/dL POC Glucose (mg/dL) 153 H (70-110) mg/dL Calcium (8.7-10.3) mg/dL
[2022-07-31 20:51] LABS: Glucose,Whole Blood 208 mg/dL (70-110)
[2022-07-31] MEDS: ATORVASTATIN 10 MG TAB PO SCH (21:16)
[2022-07-31] MEDS: TEMAZEPAM 7.5 MG CAP PO PRN (21:22)
[2022-08-01 01:55] LABS: Glucose,Whole Blood 70 mg/dL (70-110)
[2022-08-01 06:04] LABS: Glucose,Whole Blood 51 mg/dL (70-110)
[2022-08-01 06:32] LABS: Glucose,Whole Blood 106 mg/dL (70-110)
[2022-08-01] MEDS: INSULIN ASPART (NovoLOG) 100 UNIT/ML VIAL SQ SCH ×6 (06:41→19:50)
[2022-08-01] MEDS: INSULIN DETEMIR (LEVEMIR) 100 UNIT/ML SYR SQ SCH (07:06)
[2022-08-01] MEDS: MIDODRINE 5 MG TAB PO SCH ×3 (07:27→16:38)
[2022-08-01] MEDS: PANTOPRAZOLE 40 MG/10 ML VIAL IVP SCH (08:00)
[2022-08-01] MEDS: SYMBICORT 160-4.5 MCG INHALER INHALATION SCH ×2 (09:00→21:08)
[2022-08-01] MEDS: IPRATROPIUM-ALBUTEROL 3 ML NEB INHALATION SCH ×4 (09:00→21:08)
[2022-08-01] MEDS: bisacodyL 10 MG SUPP RECTAL SCH (10:39)
[2022-08-01] MEDS: predniSONE 10 MG TAB PO SCH (10:40)
[2022-08-01] MEDS: LACTULOSE 20 GM/30 ML CUP PO SCH (10:41)
[2022-08-01] MEDS: FAMOTIDINE 20 MG TAB PO SCH (10:41)
[2022-08-01] MEDS: TAMSULOSIN 0.4 MG CAP.ER.24H PO SCH (10:41)
[2022-08-01] MEDS: ALVIMOPAN 12 MG CAPSULE PO SCH (10:41)
[2022-08-01] MEDS: AMIODARONE 200 MG TAB PO SCH ×2 (10:41→19:49)
[2022-08-01] MEDS: FUROSEMIDE 40 MG TAB PO SCH (10:41)
[2022-08-01] MEDS: CALCIUM CARBONATE 500 MG CHEWABLE PO SCH ×3 (10:41→22:09)
[2022-08-01] MEDS: SIMETHICONE 40 MG/0.6 ML DROPS 2,000 MG/30 ML BOTTLE PO SCH ×4 (10:42→22:10)
[2022-08-01 10:48] LABS: Anion Gap 12.8 mmol/L (10.00-18.00); Blood Urea Nitrogen 15.6 mg/dL (9.0-27.0); Calcium 7.6 mg/dL (8.7-10.3); Carbon Dioxide 25.2 mmol/L (20.0-27.5); Non-African American GFR(CKD) 56.1 (60.0-200.0); Potassium 3.4 mmol/L (3.5-5.5)
[2022-08-01 10:49] LABS: Magnesium 1.7 mg/dL (1.5-2.4)
[2022-08-01] MEDS ORDERED: POTASSIUM CHLORIDE ER 20 MEQ TAB.ER PO STA (11:02)
[2022-08-01 11:34] LABS: Glucose,Whole Blood 166 mg/dL (70-110)
--- NOTE | 2022-08-01 11:53 | P.PN ---
Subjective Nephrology was reconsulted due to acute kidney injury. Renal function improved. Tolerating full liquid diet. Denies chest pain or shortness of breath. Nonoliguric. On oral Lasix. Rojas catheter reinserted due to persistent retention. Sitting up in chair. No active complaints. Vital signs are stable. General: Awake. No acute distress. HEENT: Head exam is unremarkable. LUNGS: Breath sounds decreased. HEART: Rate and Rhythm are regular. ABDOMEN: Soft, distention noted. EXTREMITITES: Trace edema. Objective - Vital Signs Vital signs: Vital Signs Temp 97.7 F 08/01/22 08:00 Pulse 86 08/01/22 09:14 Resp 18 08/01/22 08:00 BP 113/67 08/01/22 08:00 Pulse Ox 94 L 08/01/22 09:00 FiO2 35 07/17/22 11:06 Intake & Output 07/31/22 08/01/22 08/01/22 18:59 06:59 18:59 Output Total 1345 356 Balance -1345 -356 Weight 76 kg 78 kg Output: Urine 1345 200 Straight 550 Post Void Residual 156 Other: Voiding Method Toilet Urinal # Voids 1 # Bowel Movements 1 - Labs CBC & Chem 7: 07/29/22 09:14 08/01/22 06:34 Labs: Abnormal Lab Results - Last 24 Hours (Table) 07/31/22 08/01/22 08/01/22 Range/Units 20:50 06:03 06:34 Sodium 134 L (135-145) mmol/L Potassium 3.4 L (3.5-5.5) mmol/L Est GFR (CKD-EPI)NonAf 56.1 L (60.0-200.0) POC Glucose (mg/dL) 208 H 51 L (70-110) mg/dL Calcium 7.6 L (8.7-10.3) mg/dL 08/01/22 Range/Units 11:29 Sodium (135-145) mmol/L Potassium (3.5-5.5) mmol/L Est GFR (CKD-EPI)NonAf (60.0-200.0) POC Glucose (mg/dL) 166 H (70-110) mg/dL Calcium (8.7-10.3) mg/dL Assessment and Plan Plan: Assessment: 1. Acute kidney injury secondary to hemodynamic ATN. Renal function improved. Creatinine 1.3 today. No hydronephrosis noted on CAT scan. 2. Ileus. Surgery following. 3. A. fib. Cardiology following. Rate controlled. On oral amiodarone. 4. Diabetes mellitus. 5. Volume overload. Maintained on Lasix. 6. Urinary retention. On Flomax. Rojas catheter reinserted 07/31/2022. 7. Hypokalemia from diuresis. 8. Hyponatremia. Hypervolemic. Better. Status post [facility] this admission. 9. Hypomagnesemia from diuresis. Plan: Maintain oral Lasix. Replace potassium. Add oral magnesium oxide. Continue to monitor renal function and urine output. Avoid nephrotoxins. Maintain Rojas catheter. Try to avoid in 1 week at ECF.
--- NOTE | 2022-08-01 11:53 | P.PN ---
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 The patient is currently being seen in the intensive care unit for alcohol withdrawal was and hypoxic respiratory failure. This morning, is awake and alert and there is no significant agitation. He remains on high flow oxygen at 45 L with an FiO2 of 56%. His current pulse ox is around 89%. Note that he had a CT angiogram at time of admission that showed no evidence of any pulmonary embolism. It showed emphysema and mild portal fibrosis. His resting comfortably in bed. He has no significant shortness of breath at rest. The same time, the patient has been in normal sinus rhythm. Noted at the time of admission, he was in atrial fibrillation and he was treated with a Cardizem drip and currently is off the drip. He is also off Precedex for now. Neurologically, he is alert and oriented 3. His most recent chest x-ray from yesterday showing some atelec tatic changes in the lung bases and emphysema. Otherwise no other major abnormalities are noted. In terms of treatment, the patient is currently on DuoNeb about treatments [id number], he is on Pulmicort Respules 1 mg twice a day, he is on IV Solu-Medrol 40 mg every 6 hours. Is also on performance 1 nevertheless treatment twice a day. He is covered with antibiotics and the patient is receiving Rocephin 2 g every 24 hours. His blood cultures from this admission is negative. The white cell count is at 12 with a hemoglobin of 14.7 and a platelet count of 188. BUN is 44 with a creatinine of 1.1 and sodium levels of 137. In terms of his viral screen, the patient had a negative Covid 19 infection. Influenza screen was negative at the time of admission. On today's evaluation of 07/16/2022, the patient remains on high flow oxygen at 45 L with an FiO2 of 50%. The patient is feeling better and less short of breath compared to yesterday. No significant cough or sputum production. The patient was offered an incentive spirometer and the patient is able to generate adequate volumes on the incentive spirometer, nevertheless, the values remain less than 500 mL. The patient is on IV Rocephin. The patient was growing Haemophilus influenza in his sputum. At the same time, the patient remains on bronchodilators and he is on DuoNeb neb blotchiness 4 times a day, he is on a combination of Perforomist and Pulmicort neb less treatments twice a day and IV Solu-Medrol and the doses 40 mg IV every 6 hours. He was started on diuretics and to dose of Lasix will be given to him today. In terms of his blood work, his sodium level is at 137 with a potassium level of 4.4, BUN of 44 with a creatinine of 1.05 with RBC count of 12 a hemoglobin 14.8 and a platelet count of 148. LFTs are essentially within normal limits. On today's evaluation of 07/17/2022, the patient has no specific complaints. The patient is gradually improving. This morning, the patient was weaned down to 40 liters with an FiO2 of 35% high flow oxygen. The patient is otherwise doing well. He is using the incentive spirometer. He is still coughing and his cough is congested. Unable to bring up much sputum. He was diuresis yesterday and he has been negative fluid balance for now. BUN is a 53 with a creatinine of 1.29 his sodium levels is 135. The patient's WBC count is at 16.4 with a hemoglobin of 14.5. Remains on DuoNeb about treatments [id number]. Remains on IV Solu-Medrol. No altered mentation. No chest pain. Remains quite weak and his been having generalized global weakness. He is on Levemir 14 units daily twice a day and the patient is on NovoLog 40 units with meals and a sliding scale coverage. No altered mentation. No other new complaints. 07/18/2022, patient is doing well. The patient has been taken off the high flow oxygen the patient is currently on 4 L of O2 nasal cannula. No new complaints. IV Solu-Medrol was then tapered down to 20 mg every 8 hours. Limited cough. No significant congestion. So bronchospastic and wheezy. Air entry is quite limited in the lung bases bilaterally. He has advanced COPD.Transferred out of the intensive care unit yesterday. He is using the incentive spirometer. On his blood work, the patient has a white cell count of 8.9 with a hemoglobin of 12.4 count of 264. The patient has a BUN of 17 with a creatinine of 0.6 and his sodium level is 145. LFTs are normal. On 07/19/2022, I'm seeing the patient for a follow-up. The patient is currently on 4 L of oxygen by nasal cannula. No new complaints. He remains on IV Solu- Medrol 40 mg every 6 hours. He remains on DuoNeb about treatments on the clock. He is still very weak and he may need rehabilitation. He was transferred out of the intensive care unit few days back. echoes at 70 with a hemoglobin of 15.3 and a platelet count of 202. BUN is at 80 with a creatinine of 1.9 and there is a slight rise in the creatinine compared to yesterday's blood work. This is probably related to diuresis. 07/20/2022, the patient is still on 4 L of Oxymizer nasal cannula. Overall respiratory status is stable. Nevertheless, the patient was having some issues with obstructive uropathy. The stylist assistant was consulted. The patient is having frequent bladder scans. Flomax was also added to the regimen at a dose of 0.4 mg on a daily basis. The patient's creatinine currently is at 1.9 and the BUN is 89 with a sodium level of 133. Diuretics were held. echoes at 60 with a hemoglobin 12.7. Potassium is at 4.8. LFTs are normal. The patient remains on DuoNeb about treatments [id number]. The patient remains on IV Solu-Medrol at a dose of 40 mg every 6 hours. No diuretics for now. 07/21/2022, the patient remains on 4 L of O2 nasal cannula. He was able to sit up on a recliner for next 10. Time yesterday. He stated a Rojas catheter in place. Creatinine is being monitored. he remains on DuoNeb neb on the clock is also on IV Solu-Medrol was tapered down to 40 mg every 6 hours. The patient started developing some colored mucus and for that reason, another sputum analysis will be done today. His tolerating diet. His oral intake is gradually improving. He is quite weak and debilitated. He may need an ECF placement at a later stage. No other new complaints for now. Family is at the bedside. I lengthy discussion with the patient's family The blood work from today shows a white cell count of 12.4 with a hemoglobin of 11.8. Sodium is at 131, BUN is 97 with a creatinine of 1.85 and the rest of the liver function tests are essentially within normal limits. The patient is seen today 07/22/2022 in follow-up on the regular medical floor. He is currently sitting up in a chair at the bedside. Awake and alert in no acu te distress. Maintaining O2 saturations in the 90s on 4 L/m per nasal cannula. Blood cultures revealed no growth. Sputum culture pending. White count 13.7. Hemoglobin 12.6. Sodium 132. Potassium 5.7. Bicarb 28. BUN 105. Creatinine 2.08. Glucose 139. He is continued on DuoNeb inhalations, Pulmicort and Perforomist inhalations, prednisone taper. The patient is seen today 07/23/2022 in follow-up on the regular medical floor. He is awake and alert in no acute distress. Sitting up in a chair at the bedside. Maintaining O2 saturations in the 90s on 4 L/m per nasal cannula. Blood and sputum cultures revealed no growth. White count 11.8. Hemoglobin 11.2. Sodium 129. Potassium 4.7. BUN 103. Creatinine 1.86. Glucose 77. Remains on DuoNeb inhalations, Pulmicort and Perforomist inhalations, prednisone taper. The patient's stool was positive for occult blood. The plan is for EGD/colonoscopy on 07/25/2022. Currently on a clear liquid diet. The patient is seen today 07/24/2022 in follow-up on the regular medical floor. Currently sitting up in a chair at the bedside. Awake and alert in no acute distress. He is maintaining good O2 saturations in the 90s on 4 L/m per nasal cannula. No worsening shortness of breath, cough or congestion. White count 8.9. Hemoglobin 10.6. Sodium 130. Potassium 4.8. BUN 77. Creatinine 1.6. Glucose 70. He received Lasix 40 mg IVP 1 today. Currently in a negative balance. Remains on DuoNeb inhalations, Pulmicort and Perforomist inhalations, prednisone taper. He is awaiting a EGD/colonoscopy tomorrow. The patient is seen today 07/25/2022 in follow-up on the regular medical floor. He is awake and alert in no acute distress. Currently sitting up in bed. He was having some issues with emesis earlier. Clear fluid returned. He has been on a bowel prep. He is currently maintaining O2 saturations in the high 90s on 4 L nasal cannula. His lung sounds are clear. No shortness of breath, cough or congestion. Sputum culture revealed no growth. Sodium 129. Potassium 4.0. BUN 66. Creatinine 1.40. He remains on Symbicort, DuoNeb inhalations. Oral diuretics. Prednisone taper. Plan is for EGD/colonoscopy today. The patient is seen today 07/26/2022 in follow-up on the regular medical floor. Currently sitting up in a chair at the bedside. Eating lunch. He did undergo EGD and partial colonoscopy. Not completed due to poor prep. He was found to have duodenitis, antral gastritis, erosive esophagitis, diverticulosis. No active bleeding noted. Computed tomography scan of the abdomen today revealed g eneralized anasarca. Trace to small bilateral effusions with adjacent atelectasis. Trace to small abdominal ascites. Small to moderate anterior pericardial effusion. Cecal dilatation of 10.0 cm. There is contiguous air distention of the distal ileum up to 3.5 cm in the ascending and transverse colon up to 6.3 cm. Blood cultures revealed no growth. Sputum culture revealed no growth. White count 5.8. Hemoglobin 10.5. Platelets 129. Sodium 127. Potassium 3.7. BUN 41. Creatinine 1.21. Glucose 161. He remains on DuoNeb inhalations, Symbicort, prednisone taper. Oral diuretics. The patient is seen today 07/27/2022 in follow-up on the regular medical floor. He is currently sitting up in a chair at the bedside. Awake and alert in no acute distress. Maintaining O2 saturations in the 90s on 2 L/m per nasal cannula. Afebrile. Denies any worsening abdominal discomfort. Blood cultures revealed no growth. Sputum culture revealed no growth. White count 7.4. Hemoglobin 10.6. Sodium 137. Potassium 3.8. BUN 35. Creatinine 1.5. Glucose 200. He remains on DuoNeb inhalations, Symbicort, prednisone taper. Oral diuretics. The patient is seen today 07/29/2022 in follow-up on the regular medical floor. He is awake and alert in no acute distress. Sitting up in bed. Maintaining O2 saturations in the 90s on 2 L/m per nasal cannula. Abdominal x-ray reveals persistent gaseous dilatation throughout the bowel seen on prior CT. Findings correlate with ileus. Evidence of COPD. Sputum culture revealed no growth. Blood cultures revealed no growth. White count 4.3. Hemoglobin 10.0. Sodium 1:30. Potassium 3.3. BUN 34. Creatinine 1.39. Glucose 155. He is continued on Symbicort, DuoNeb inhalations, prednisone taper. Surgical services are on the case. Diet is advanced to liquids. The patient is seen today 07/30/2022 follow-up on the regular medical floor. He is sitting up in a chair at the bedside. Awake and alert in no acute distress. Maintaining good O2 saturations in the 90s on 2 L/m per nasal cannula. Blood cultures reveal no growth. Sputum culture revealed no growth. Sodium 134. Potassium 3.3. BUN 24. Creatinine 1.5. Glucose 123. Continue on Symbicort, DuoNeb inhalations, prednisone. The patient is seen today 07/31/2022 in follow-up on the regular medical floor. He is sitting up in bed. Awake and alert in no acute distress. Continues to maintain good O2 saturations in the 90s on 2 L/m per nasal cannula. No IV fluids. Sputum culture revealed no growth. Blood cultures revealed no growth. Sodium 134. Potassium 3.5. BUN 19. Creatinine 1.5. Glucose 69. He has been advanced to a full liquid diet per surgical services. Continue on Symbicort, DuoNeb inhalations, prednisone. The patient is seen today 08/01/2022 in follow-up on the regular medical floor. He is currently resting comfortably in bed. Awake and alert in no acute distress. Maintaining good O2 saturations in the 90s on 2 L/m per nasal cannula. No IV fluids. Blood cultures reveal no growth. Sputum culture revealed no growth. Sodium 134. Potassium 3.4. BUN 16. Creatinine 1.3. Continue on Symbicort, DuoNeb inhalations, prednisone. He remains on a full liquid diet. Objective - Vital Signs Vital signs: Vital Signs Temp 97.7 F 08/01/22 08:00 Pulse 86 08/01/22 09:14 Resp 18 08/01/22 08:00 BP 113/67 08/01/22 08:00 Pulse Ox 94 L 08/01/22 09:00 FiO2 35 07/17/22 11:06 Intake & Output 07/31/22 08/01/22 08/01/22 18:59 06:59 18:59 Output Total 1345 356 Balance -1345 -356 Weight 76 kg 78 kg Output: Urine 1345 200 Straight 550 Post Void Residual 156 Other: Voiding Method Toilet Urinal # Voids 1 # Bowel Movements 1 - Exam Alert, 66-year-old male, no acute distress, resting comfortably in bed, currently on 2 L nasal cannula. HEENT examination is grossly unremarkable. Neck supple. Full range of motion. No adenopathy thyromegaly or neck vein distention. Cardiovascular examination reveals regular rhythm rate. S1-S2 normal. No S3 or S4. No discernible murmur noted. Heart sounds are distant. Lungs reveal no crackles, wheeze or rhonchi. Diminished Abdomen , obese, soft, hypoactive bowel sounds. No masses or tenderness. Extremities are intact. No cyanosis clubbing or edema. Skin is without rash or lesion.Examination of the skin revealed no evidence of significant rashes, suspicious appearing nevi or other concerning lesions. Neurologic examination Neurologically, the patient is awake and alert and the patient does not have any focal neurological deficit. Cranial nerves are essentially intact. - Labs CBC & Chem 7: 07/29/22 09:14 08/01/22 06:34 Labs: Abnormal Lab Results - Last 24 Hours (Table) 07/31/22 08/01/22 08/01/22 Range/Units 20:50 06:03 06:34 Sodium 134 L (135-145) mmol/L Potassium 3.4 L (3.5-5.5) mmol/L Est GFR (CKD-EPI)NonAf 56.1 L (60.0-200.0) POC Glucose (mg/dL) 208 H 51 L (70-110) mg/dL Calcium 7.6 L (8.7-10.3) mg/dL 08/01/22 Range/Units 11:29 Sodium (135-145) mmol/L Potassium (3.5-5.5) mmol/L Est GFR (CKD-EPI)NonAf (60.0-200.0) POC Glucose (mg/dL) 166 H (70-110) mg/dL Calcium (8.7-10.3) mg/dL Assessment and Plan Assessment: Acute hypoxemic respiratory failure secondary to COPD exacerbation and the patient presented with acute hypoxic and hypercapnic respiratory failure. Oxygenation has improved. Remains on 2 liters nasal cannula. Severe COPD and the patient has an FEV1 of 39% of predicted at baseline and this is based on spirometry that was done on 09/28/2020. The patient has been maintained on Advair and DuoNeb about treatments [id number].. Delirium, recovered Acute kidney injury and the creatinine is currently 1.5. GFR of 48 Acute tracheobronchitis. Recovered Supraventricular tachycardia/atrial fibrillation with RVR. Patient is currently on normal sinus rhythm. The patient is also on anticoagulation with Eliquis. The patient has a normal LV function History of laryngeal carcinoma, in remission, status post radiation treatment, diagnosed in 2017. Acute hypercapnic respiratory failure secondary to severe COPD. GI bleed with positive stool for occult blood, current hemoglobin 10.6. Plans for EGD/colonoscopy revealed duodenitis, antral gastritis, erosive esophagitis, diverticulosis. No active bleeding. Cecal dilatation of 10 cm with distention in the distal ileum to the ascending and transverse colon Plan: The patient was seen and evaluated Medications and labs reviewed Stable and on 2 L nasal cannula Continue a prednisone taper, Symbicort, albuterol Diet has been advanced to full liquids Cleared for transfer to [facility] once cleared by surgery I have personally seen and examined the patient, performed the documentation and the assessment and plan as written. Number of minutes spent on the visit: 10.
[2022-08-01] MEDS: MAGNESIUM OXIDE 400 MG TAB PO SCH ×2 (12:56→19:50)
--- NOTE | 2022-08-01 15:33 | P.PN ---
Subjective Progress Note Date: 08/01/22 CHIEF COMPLAINT: Ileus in HISTORY OF PRESENT ILLNESS: Patient admitted to the hospital with shortness of breath evidence of COPD exacerbation, bronchitis and SVT. Patient did have a bowel movements after lactulose. Denies any nausea or vomiting. He is having flatus. He reports feeling better today. Abdomen is nontender. He is reporting that his abdomen is at his normal size. Afebrile. Sodium 134 potassium 3.4 creatinine 1.3 Patient seen and examined with Dr. Jim PHYSICAL EXAM: VITAL SIGNS: Reviewed. GENERAL: Well-developed in no acute distress. ABDOMEN: Soft. distended. Nontender ASSESSMENT: 1. GI bleed resolved. Likely due to erosive esophagitis 2. Ileus 2. Acute COPD exacerbation with acute hypoxic respiratory failure 3. SVT and AFIB 4. Hypokalemia PLAN: -Advance diet to regular -Anticipate discharge tomorrow -Continue to increase activity level -Continue PPI -Potassium being replaced -Colace added Physician Special Client Bus Driver note has been reviewed by physician. Signing provider agrees with the documented findings, assessment, and plan of care. Objective - Vital Signs Vital signs: Vital Signs Temp 97.9 F 08/01/22 14:00 Pulse 66 08/01/22 14:00 Resp 16 08/01/22 14:00 BP 120/68 08/01/22 14:00 Pulse Ox 94 L 08/01/22 09:00 FiO2 35 07/17/22 11:06 Intake & Output 07/31/22 08/01/22 08/01/22 18:59 06:59 18:59 Intake Total 960 Output Total 1345 356 200 Balance -1345 -356 760 Weight 76 kg 78 kg 78 kg Intake: Oral 960 Output: Urine 1345 200 200 Straight 550 Post Void Residual 156 Other: Voiding Method Toilet Indwelling Catheter Urinal # Voids 1 # Bowel Movements 1 - Labs CBC & Chem 7: 07/29/22 09:14 08/01/22 06:34 Labs: Abnormal Lab Results - Last 24 Hours (Table) 07/31/22 08/01/22 08/01/22 Range/Units 20:50 06:03 06:34 Sodium 134 L (135-145) mmol/L Potassium 3.4 L (3.5-5.5) mmol/L Est GFR (CKD-EPI)NonAf 56.1 L (60.0-200.0) POC Glucose (mg/dL) 208 H 51 L (70-110) mg/dL Calcium 7.6 L (8.7-10.3) mg/dL 08/01/22 Range/Units 11:29 Sodium (135-145) mmol/L Potassium (3.5-5.5) mmol/L Est GFR (CKD-EPI)NonAf (60.0-200.0) POC Glucose (mg/dL) 166 H (70-110) mg/dL Calcium (8.7-10.3) mg/dL
[2022-08-01 16:36] LABS: Glucose,Whole Blood 362 mg/dL (70-110)
[2022-08-01 19:45] LABS: Glucose,Whole Blood 132 mg/dL (70-110)
[2022-08-01] MEDS: DOCUSATE 100 MG CAP PO SCH (19:49)
[2022-08-01] MEDS: ATORVASTATIN 10 MG TAB PO SCH (19:49)
[2022-08-01] MEDS ORDERED: INSULIN DETEMIR (LEVEMIR) 100 UNIT/ML SYR SQ SCH (21:00)
[2022-08-01] MEDS ORDERED: ACETAMINOPHEN TAB 325 MG TAB PO STA (22:09)
[2022-08-01] MEDS: TEMAZEPAM 7.5 MG CAP PO PRN (22:10)
[2022-08-02] MEDS ORDERED: ACETAMINOPHEN TAB 325 MG TAB PO PRN
[2022-08-02 02:26] LABS: Glucose,Whole Blood 293 mg/dL (70-110)
--- NOTE | 2022-08-02 05:20 | P.PN ---
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 Patient tried breathing treatments at home without much relief. Patient was tachycardic on admission with heart rate in 160s and was found to be SVT patient was given Ellenson in the ER. Otherwise denied any complaints of chest pain. No nausea vomiting or abdominal pain. Denied any increased leg swelling. No fever no chills. No prior history of SVT. Chest x-ray showed COPD. No active cardiopulmonary disease. Mild pulmonary fibrotic changes. No significant change. CTA chest showed no evidence of PE. Emphysema and mild pulmonary fibrosis. No suspicious pulmonary mass. Laboratory data showed WBC 16.0 hemoglobin 16.0 and platelets 269 Sodium 139 potassium four-point 102 bicarb is 20 BUN 16 and creatinine 0.87 and lactic acid 2.7 Troponin x1 negative and proBNP is 378 TSH 0.49 6 Coronavirus and influenza AMB not detected. Urinalysis is negative for infection. 07/08/2022 Patient continues to be monitored in intensive care unit mostly on BiPAP support but able to be weaned to 3 to 4 L of oxygen via nasal cannula. He is unsure when he has had bowel movement and has limited to no bowel sounds for this reason abdominal xray has been performed showing mildly distended small bowel loops and some segments of colon as well. Consider generalized ileus and difficult to exclude the possibility of a distal colonic obstruction. White blood cell count today 6.1, sodium 144, potassium 4.6, BUN 40, creatinine 0.99, blood glucose 150, magnesium 2.4. Procalcitonin 0.55. Vitals today, patient is afebrile, heart rate 71, blood pressure 121/64, 95% oxygen saturation. Patient has been maintained on dexmedetomidine for acute anxiety which is currently paused. Continues on IV Solu-Medrol, and bronchodilators. Patient is currently on IV cardizem gtt for tachycardia and will be transitioned to oral verapamil today, cardiology is following. 07/09/2022 Patient continues to be monitored in intensive care unit. White count elevated up to 12.4 today he has expiratory wheezing on exam changed from yesterday. Patient requiring bipap at 35% FiO2 currently. He did have low grade fever this morning 99 and is receiving acetaminophen as needed. chest xray today showing chronic emphysema and pulmonary fibrotic change. Procalcitonin level elevated at 0.55. IV ceftriaxone increased to 2 gram every 24 hours. Patient is continued on bronchodilators. Continues on IV solumedrol 60 mg q6h. Dexmedetomidine possibly being weaned off today, seroquel and haldol ordered with ativan as needed. Patient continues with significant abdominal distention and absent bowel sounds left lower quadrant. Did not receive lactulose yesterday. General surgery was consulted for further evaluation, currently placed NPO for possible ileus /bowel obstruction. He is hypertensive today with systolic in the 180s has been started on verapamil TID and also hydralazine 50 BID. Cardiology following. 07/10/2022 Patient evaluated today on BiPAP, fio2 has been increased to 40%, he is using accessory muscles to breath and appears quite aggitated. He is on combination of haldol, seroquel for this. Additionally, he was started on nicotine patch and clonidine patch. NG tube has been placed, patient has not had a BM. Abdominal Pelvis CT completed showing no CT evidence for small bowel obstruction. Patient also had follow up chest xray today showing COPD changes and no acute disease. Never the less he appears to have some respiratory distress requiring BiPAP. white count 11.7 today, sodium 149, BUN 47, creatinine 1.05, blood glucose 170s. Patient has been placed on amiodarone infusion and also heparin gtt as patient is unable to take oral medications currently. He continues on antibiotics. Continues on IV solumedrol. 07/11/2022 Patient is monitored in intensive care unit. Continues with NG tube. Tube feedings have been resumed with vital AF 1.2 with goal of 55 mls per hour. Currrently running at 20 mLs/hour. Patient has free water flush 30 mL every 4 hours, would like to increase free water and discontinue IV fluids. Sodium level today 148, potassium 4.1, chloride 110, BUN 51, creatinine 1.08. Blood glucose in the 240s and insulin has been increased. Patient is receiving lactulose, had fleet enema today. Has not had a BM this admission, bowel sounds in all 4 quadrants today. Amiodarone has been discontinued. Continues on oral verapamil. Heart rate is improving. Patient trialed on airvo 60/60 today. Chest xray showing no focal consolidation. 07/12/2022 Patient is evaluated in ICU, family at bedside. Continues on Airvo 60/60, reports non productive cough. Diffuse weakness. Abdomen distended seems worse than yesterday. Discussed with surgery. Tube feedings have been placed on hold and patient started on daily suppositories. Otherwise continues on empiric ceftriaxone. Chest xray showing COPD with possible underlying pulmonary vascular congestion. Sodium up to 150 today, nephrology consulted. Patient has been started on D5% water at 75 mls per hour. BUN 55 creatinine 1.22 today. Blood glucose 230s. Heart rate 120s today, blood pressure 130/91, remains afebrile. 07/13/2022 Patient continue in Intensive Care unit. Continues on Airvo 60/60. He reports breathing improved today less short of breath. Lung sounds have improved and increased aeration. Less congested. No BM yet, has been started on dulcolax suppository daily. Increased bowel sounds today and abdomen is less distended. Remains on IV ceftriaxone. White count normalized to 9.9. Sodium remains at 150, BUN 51, creatinine 1.21. Blood glucose 200s. hgb A1c found to be 6.5 consistent with diagnosis of diabetes mellitus type 2. Continues on levemir with sliding scale and scheduled novolog coverage. Remains afebrile, heart rate 87, blood pressure 177/91, oxygen saturation 95%. IV steroids have been decreased today. Continues on oral cardizem, oral verapamil. Continues on D5 water at 75 mls per hour. 07/14/2022 Patient continues to be monitored closely in intensive care unit. He continues on Airvo 45/60, has tolerated weaning and continues to report improvement in work of breathing. No wheezing noted on exam today has some coarse scattered ronchi. NG tube remains in place, he did have BM. Will discuss with surgery if NG tube can be discontinued. Will add nystatin swish today which can be applied manually versus swishing. Patient remains diffusely weak has been on bedrest. No breakdown noted on skin. Continues on oral amiodarone, verapamil, anticoagulated with eliquis. Patient has been maintained on empiric antibiotic coverage with IV ceftriaxone, tomorrow will be day 5. white count has normalized consider discontinuing antibiotics tomorrow. Patient is maintaining sinus rhythm today heart rate 80s, blood pressure 159/78, 93% oxygen saturation, has remained afebrile. Labs today are improving, white count remains within normal limits at 10.4, sodium 142, potassium 4.5, chloride normalized to 104, BUN 48, creatinine 1.08. Blood glucose 160s to 200s. IV fluids have been changed to D5 1/2 NS at 50. Repeat labs tomorrow. Multiple consultations following. PT/OT has been consulted. 07/15/22. Patient seen and examined. Daughter at the bedside. Patient continues to be on heated high flow oxygen. States he feels better. Denies any nausea, vomiting. Case discussed with nursing staff 07/16/22. Patient seen and examined. Stated that he had a panic attack this morning, currently doing much better. Breathing is improving. Denies any chest pain. Continues to be on heated high flow 07/17/22. Patient seen and examined. Continues to be on heated high flow. Does not look any acute distress. 07/18/22. Patient seen and examined. Patient is transferred out of ICU. Currently on 4 L of oxygen. Gets short of breath on exertion. Otherwise patient is doing better compared to yesterday 07/19. Patient seen and examined. Continues to be on 4 L of oxygen. Creatinine has bumped up to 1.9. Gets short of breath on exertion. Patient is very weak 07/20. Patient seen and examined. Still gets short of breath on minimal exertion. Denies any chest pain. Not very keen to get out of the bed. Explained to him that he needs to get out of the bed 07/21. Patient seen and examined. Currently sitting in the chair. States he feels better compared to yesterday. Still complaining of productive cough 07/22/2022 Patient monitored sitting up in chair today. He continues on 4L nasal cannula. Hypotensive today blood pressures in the 80s systolic. 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 Verapamil has been placed on hold. Creatinine increased up to 2.08 today, most likely from acute hypotensive episode. He continues in sinus rhythm heart rate in the 70s. Potassium 5.7, sodium 132. Sputum culture pending. 07/23/2022 Patient sitting up in chair today. No acute events overnight. He does report some dizziness. Blood pressure on the lower side throughout the evening and he received a 500 mL fluid bolus. Started on midodrine yesterday as well. Blood pressure improved to 110s/50s. Continues on 4L nasal cannula. Surgery has been following for reports of maroon colored stools which patient reports have resolved, and he is scheduled to undergo EGD colonoscopy . Hgb 11.2. Creatinine improved to 1.8 today. He continues with indwelling catheter. 07/24/2022 Patient resting in bed today. Started goLytely prep for EGD/colonoscopy tomorrow. Reports worsening shortness of breath today. He has scattered wheezing today. Patient would benefit from lasix which nephrology has ordered an IV dose x 1 today, 40 mg and will start oral lasix 40 mg daily tomorrow. Hemoglobin remains stable at 10.6, sodium 130, BUN 77, creatinine 1.6 today. Blood glucose in the 70s, monitor closely. Decreased levemir and scheduled insulin. Continues with indwelling catheter. Blood pressure improved, 108/69. Continues on midodrine. 07/25/2022 Patient is seen in follow-up today with family at the bedside currently scheduled to undergo colonoscopy with EGD with general surgery today. Patient is currently maintained on 2-4 L of oxygen via nasal cannula and recommend wean FiO2 as tolerated. Nephrology following inpatient is maintained on Lasix that has been transitioned oral and increasing today to 40 mg twice daily and recommending repeat labs. Sodium on the lower side. Patient is currently nothing by mouth and will resume diet once done with endoscopy. Patient to continue with indwelling Greenfield catheter and also strongly recommend aspiration precautions along with continuing to monitor Accu-Cheks before meals and at bedtime. Patient is afebrile denies worsening shortness of breath or chest pain. Will await endoscopy report. 07/26/2022 Patient is seen and evaluated today post EGD/colonoscopy. Per report there was a poor bowel prep although parts visualized of the colonoscopy with no evidence of GI bleed and possibly secondary to erosive esophagitis. Multiple biopsies were obtained and patient will need follow-up outpatient. Hemoglobin is stable with no evidence of bleeding noted. Patient with abdominal distention ordered CT abdomen which is currently pending for this morning. Currently NPO per surgery recommendations. Continued on oral lasix with nephrology following. Sodium continues to be low and kidney functions elevated. Patient is asking for advance in diet as he has not had any real food in days due to recent colonoscopy prep. 07/27/2022 Patient is seen today and reports to feeling hungry and less pain in the abdomen. Patient being followed by surgery and recommending abdominal xray. Patient is passing gas with no bowel movement as of yet. Patient is NPO currently until cleared by surgery. CT was concerning of cecal dilatation and some ascites. Encouraged increased activity as tolerated and PT daily. Patient with progressive weakness and prolonged hospitalizations would greatly benefit from ECF on discharge. 07/28/2022 Patient is seen in follow up and abd xray shows ileus with abdominal distention. Surgery following and will continue NPO with ice chips and popsicles. Repeat abd xray ordered for am. Recommend repeat labs as well. Continued with pulmonary and nephrology following as well. Patient is afebrile and denies worsening shortness of breath. Patient denies chest pain. Patient reports to feeling hungry. 07/29/2022 Patient is seen today lying in bed. Multiple medical consultations following and xray from today continues to demonstrate ileus with contrast still noted in the bowel. Surgery following and has increased diet to clear liquids. Recommend aspiration precautions. Abdomen continues to be distended although non-tender per patient. Patient is afebrile and denies worsening shortness of breath. Pulmonary following and continued on oral prednisone taper along with breathing treatments. Encouraged incentive spirometer and increased activity as tolerated. Patient with significant weakness and prolonged hospitalization will require ECF once stabilized. Follow up am labs ordered. Recommend PT daily. 07/30/2022 Patient seen and evaluated in follow-up today and tolerating the clear liquids. Patient is voiding post greenfield catheter removal and recommend monitoring for retention and may replace greenfield if retaining. Multiple medical consultations following and pulmonary has cleared the patient for discharge to ecf with close outpatient follow up. Recommend PT daily. Patient had a bowel movement and will discuss with surgery about discharge. Patient is afebrile and denies worsening shortness of breath. No chest pain reported. Overall generalized weakness noted. 07/31/2022 Patient is seen and evaluated today currently sitting up in the chair. Patient reports to tolerating clear liquids. Patient did have a bout of loose brown stool that was sludgy per nursing staff. No bleeding noted. Patient being started on lactulose per surgery. Diet is being advanced per surgery. Nephrology following as well as pulmonary. Patient is continued on oral prednisone and duonebs. Patient is reporting to feeling extensive weakness. Greenfield was removed and was retaining and indwelling greenfield catheter replaced. Recommend to continue greenfield. Patient continues to report not sleeping well and have added low dose restoril. 08/01/2022 Patient is seen and evaluated today currently sitting up in the chair tolerating full liquid diet reports he is having loose brown stool. General surgery following and has him continued on lactulose and will continue. Patient denies nausea or vomiting and tolerating the diet. Possible advancement in diet per surgery recommendations. Pulmonary following as well and respiratory is currently stable continued on oral prednisone along with DuoNeb treatments. Nephrology following as well. Afebrile and denies worsening shortness of breath or chest pain. Abdomen is distended although soft and patient denies pain. Review of Systems Constitutional: No Reports of fatigue, denied any fever. Cardio vascular: denied any chest pain, palpitations Gastrointestinal: denied any nausea, vomiting, or diarrhea, passing gas and had a bm that was loose Pulmonary: no Reports of worsening shortness of breath Neurologic reports weakness All inpatient medications were reviewed and appropriate changes in these medications as dictated in the interval history and assessment and plan. PHYSICAL EXAMINATION: GENERAL: The patient is alert and oriented x3. Well developed, well nourished. sitting up in the chair. Obese. HEENT: Pupils are round and equally reacting to light. EOMI. No scleral icterus. No conjunctival pallor. Normocephalic, atraumatic. No pharyngeal erythema. No thyromegaly. CARDIOVASCULAR: S1 and S2 muffled PULMONARY: Scattered, coarse lung sounds bilaterally. ABDOMEN: Soft, nontender, distended, normoactive bowel sounds. No palpable organomegaly. Round, obese. MUSCULOSKELETAL: No joint swelling or deformity. EXTREMITIES: No cyanosis, clubbing, or pedal edema. muscle wasting noted NEUROLOGICAL: Gross neurological examination did not reveal any focal deficits. Diffuse generalized weakness. SKIN: No rashes. Assessment: Acute COPD exacerbation and tracheobronchitis, improving Acute hypoxemic respiratory failure secondary to above, has been weaned off BiPAP/Airvo support and currently on 2L nasal cannula SVT/Atrial fibrillation with rapid rate converted to normal sinus rhythm Hypertension currently hypotensive, improving on midodrine. Ruled out GI bleed On EGD colonoscopy, most likely erosive esophagitis Hypernatremia, resolved currently hyponatremic, improved with samsca Acute kidney injury, initially resolved, creatinine elevated from hypotension and component of urinary retention Urinary retention with indwelling greenfield catheter, catheter removed 12-[address] noted on CT Diabetes Mellitus type 2 A1C 6.5. Ileus, redemonstrated on recent xray 07/27/22 BPH Prior history of smoking History of throat cancer and vocal cord status post radiation 2016 GI prophylaxis DVT prophylaxis Full Code Plan: Continue oxygen supplementation, currently on 2 L via NC, Pulmonary following and continued on pred taper and duoneb treatments. Currently on 30mg PO prednisone Patient with abdominal pain improvement and reports to passing gas and had a bowel movement that was loose . Lactulose discontinued. Surgery following and diet being advanced as tolerated Short term amiodarone therapy for one month and then discontinue per cardiology Patient started on midodrine, verapamil on hold. Continue Flomax, indwelling catheter removed per nephrology and continued to retain. Greenfield replaced EGD/Colonoscopy done with no evidence of GI bleeding in the colonoscopy and most likely secondary to erosive esophagitis and biopsies were obtained Oral Lasix daily per nephrology and follow up am labs ordered. post samsca and sodium is improved Recommend electrolytes to be replaced per protocol. Continues on oral steroid taper, now at 30 mg. Pulmonary following and has cleared the patient for dc to ecf Recommend getting up out of the bed multiple times per day. Subacute rehab on discharge when medically stable Recommend PT/OT daily Case management following and possible discharge to [facility] in 24 hours once cleared by surgery Overall prognosis remains guarded. The impression and plan of care has been dictated by Tiffanie Kauffman, Nurse Practitioner as directed. Dr. Cara MD I have performed a history and examination and MDM of this patient, discussed the same with the dictator, and agree with the dictator's assessment and plan as written ,documented as a scribe. Based on total visit time, I have performed more than 50% of the visit. Objective - Vital Signs Vital signs: Vital Signs Temp 97.7 F 08/01/22 08:00 Pulse 80 08/01/22 12:13 Resp 18 08/01/22 08:00 BP 113/67 08/01/22 08:00 Pulse Ox 94 L 08/01/22 09:00 FiO2 35 07/17/22 11:06 Intake & Output 07/31/22 08/01/22 08/01/22 18:59 06:59 18:59 Output Total 1345 356 Balance -1345 -356 Weight 76 kg 78 kg 78 kg Output: Urine 1345 200 Straight 550 Post Void Residual 156 Other: Voiding Method Toilet Urinal # Voids 1 # Bowel Movements 1 - Labs CBC & Chem 7: 07/29/22 09:14 08/01/22 06:34 Labs: Abnormal Lab Results - Last 24 Hours (Table) 07/31/22 08/01/22 08/01/22 Range/Units 20:50 06:03 06:34 Sodium 134 L (135-145) mmol/L Potassium 3.4 L (3.5-5.5) mmol/L Est GFR (CKD-EPI)NonAf 56.1 L (60.0-200.0) POC Glucose (mg/dL) 208 H 51 L (70-110) mg/dL Calcium 7.6 L (8.7-10.3) mg/dL 08/01/22 Range/Units 11:29 Sodium (135-145) mmol/L Potassium (3.5-5.5) mmol/L Est GFR (CKD-EPI)NonAf (60.0-200.0) POC Glucose (mg/dL) 166 H (70-110) mg/dL Calcium (8.7-10.3) mg/dL
[2022-08-02 06:32] LABS: Glucose,Whole Blood 161 mg/dL (70-110)
[2022-08-02] MEDS: MIDODRINE 5 MG TAB PO SCH ×2 (06:47→12:51)
[2022-08-02] MEDS: INSULIN ASPART (NovoLOG) 100 UNIT/ML VIAL SQ SCH ×2 (06:47→12:51)
[2022-08-02] MEDS ORDERED: INSULIN DETEMIR (LEVEMIR) 100 UNIT/ML SYR SQ SCH (07:00)
[2022-08-02] MEDS: PANTOPRAZOLE 40 MG/10 ML VIAL IVP SCH ×2 (08:52→12:17)
[2022-08-02] MEDS: predniSONE 10 MG TAB PO SCH (08:53)
[2022-08-02] MEDS: CALCIUM CARBONATE 500 MG CHEWABLE PO SCH ×2 (08:53→15:52)
[2022-08-02] MEDS: TAMSULOSIN 0.4 MG CAP.ER.24H PO SCH (08:53)
[2022-08-02] MEDS: AMIODARONE 200 MG TAB PO SCH (08:53)
[2022-08-02] MEDS: DOCUSATE 100 MG CAP PO SCH ×2 (08:53→09:02)
[2022-08-02] MEDS: FUROSEMIDE 40 MG TAB PO SCH (08:53)
[2022-08-02] MEDS: FAMOTIDINE 20 MG TAB PO SCH (08:53)
[2022-08-02] MEDS: SIMETHICONE 40 MG/0.6 ML DROPS 2,000 MG/30 ML BOTTLE PO SCH ×2 (08:56→12:53)
[2022-08-02] MEDS: MAGNESIUM OXIDE 400 MG TAB PO SCH (09:00)
[2022-08-02] MEDS: SYMBICORT 160-4.5 MCG INHALER INHALATION SCH (09:05)
[2022-08-02] MEDS: IPRATROPIUM-ALBUTEROL 3 ML NEB INHALATION SCH ×3 (09:05→15:36)
[2022-08-02 11:36] LABS: Anion Gap 13.1 mmol/L (10.00-18.00); Blood Urea Nitrogen 16.9 mg/dL (9.0-27.0); Calcium 7.4 mg/dL (8.7-10.3); Carbon Dioxide 23.9 mmol/L (20.0-27.5); Magnesium 1.7 mg/dL (1.5-2.4); Non-African American GFR(CKD) 56.1 (60.0-200.0); Potassium 3.7 mmol/L (3.5-5.5)
[2022-08-02 11:37] VITALS: BMI 21.9
--- NOTE | 2022-08-02 11:49 | P.PN ---
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 The patient is currently being seen in the intensive care unit for alcohol withdrawal was and hypoxic respiratory failure. This morning, is awake and alert and there is no significant agitation. He remains on high flow oxygen at 45 L with an FiO2 of 56%. His current pulse ox is around 89%. Note that he had a CT angiogram at time of admission that showed no evidence of any pulmonary embolism. It showed emphysema and mild portal fibrosis. His resting comfortably in bed. He has no significant shortness of breath at rest. The same time, the patient has been in normal sinus rhythm. Noted at the time of admission, he was in atrial fibrillation and he was treated with a Cardizem drip and currently is off the drip. He is also off Precedex for now. Neurologically, he is alert and oriented 3. His most recent chest x-ray from yesterday showing some atelec tatic changes in the lung bases and emphysema. Otherwise no other major abnormalities are noted. In terms of treatment, the patient is currently on DuoNeb about treatments [id number], he is on Pulmicort Respules 1 mg twice a day, he is on IV Solu-Medrol 40 mg every 6 hours. Is also on performance 1 nevertheless treatment twice a day. He is covered with antibiotics and the patient is receiving Rocephin 2 g every 24 hours. His blood cultures from this admission is negative. The white cell count is at 12 with a hemoglobin of 14.7 and a platelet count of 188. BUN is 44 with a creatinine of 1.1 and sodium levels of 137. In terms of his viral screen, the patient had a negative Covid 19 infection. Influenza screen was negative at the time of admission. On today's evaluation of 07/16/2022, the patient remains on high flow oxygen at 45 L with an FiO2 of 50%. The patient is feeling better and less short of breath compared to yesterday. No significant cough or sputum production. The patient was offered an incentive spirometer and the patient is able to generate adequate volumes on the incentive spirometer, nevertheless, the values remain less than 500 mL. The patient is on IV Rocephin. The patient was growing Haemophilus influenza in his sputum. At the same time, the patient remains on bronchodilators and he is on DuoNeb neb blotchiness 4 times a day, he is on a combination of Perforomist and Pulmicort neb less treatments twice a day and IV Solu-Medrol and the doses 40 mg IV every 6 hours. He was started on diuretics and to dose of Lasix will be given to him today. In terms of his blood work, his sodium level is at 137 with a potassium level of 4.4, BUN of 44 with a creatinine of 1.05 with RBC count of 12 a hemoglobin 14.8 and a platelet count of 148. LFTs are essentially within normal limits. On today's evaluation of 07/17/2022, the patient has no specific complaints. The patient is gradually improving. This morning, the patient was weaned down to 40 liters with an FiO2 of 35% high flow oxygen. The patient is otherwise doing well. He is using the incentive spirometer. He is still coughing and his cough is congested. Unable to bring up much sputum. He was diuresis yesterday and he has been negative fluid balance for now. BUN is a 53 with a creatinine of 1.29 his sodium levels is 135. The patient's WBC count is at 16.4 with a hemoglobin of 14.5. Remains on DuoNeb about treatments [id number]. Remains on IV Solu-Medrol. No altered mentation. No chest pain. Remains quite weak and his been having generalized global weakness. He is on Levemir 14 units daily twice a day and the patient is on NovoLog 40 units with meals and a sliding scale coverage. No altered mentation. No other new complaints. 07/18/2022, patient is doing well. The patient has been taken off the high flow oxygen the patient is currently on 4 L of O2 nasal cannula. No new complaints. IV Solu-Medrol was then tapered down to 20 mg every 8 hours. Limited cough. No significant congestion. So bronchospastic and wheezy. Air entry is quite limited in the lung bases bilaterally. He has advanced COPD.Transferred out of the intensive care unit yesterday. He is using the incentive spirometer. On his blood work, the patient has a white cell count of 8.9 with a hemoglobin of 12.4 count of 264. The patient has a BUN of 17 with a creatinine of 0.6 and his sodium level is 145. LFTs are normal. On 07/19/2022, I'm seeing the patient for a follow-up. The patient is currently on 4 L of oxygen by nasal cannula. No new complaints. He remains on IV Solu- Medrol 40 mg every 6 hours. He remains on DuoNeb about treatments on the clock. He is still very weak and he may need rehabilitation. He was transferred out of the intensive care unit few days back. echoes at 70 with a hemoglobin of 15.3 and a platelet count of 202. BUN is at 80 with a creatinine of 1.9 and there is a slight rise in the creatinine compared to yesterday's blood work. This is probably related to diuresis. 07/20/2022, the patient is still on 4 L of Oxymizer nasal cannula. Overall respiratory status is stable. Nevertheless, the patient was having some issues with obstructive uropathy. The onion tier was consulted. The patient is having frequent bladder scans. Flomax was also added to the regimen at a dose of 0.4 mg on a daily basis. The patient's creatinine currently is at 1.9 and the BUN is 89 with a sodium level of 133. Diuretics were held. echoes at 60 with a hemoglobin 12.7. Potassium is at 4.8. LFTs are normal. The patient remains on DuoNeb about treatments [id number]. The patient remains on IV Solu-Medrol at a dose of 40 mg every 6 hours. No diuretics for now. 07/21/2022, the patient remains on 4 L of O2 nasal cannula. He was able to sit up on a recliner for next 10. Time yesterday. He stated a Rojas catheter in place. Creatinine is being monitored. he remains on DuoNeb neb on the clock is also on IV Solu-Medrol was tapered down to 40 mg every 6 hours. The patient started developing some colored mucus and for that reason, another sputum analysis will be done today. His tolerating diet. His oral intake is gradually improving. He is quite weak and debilitated. He may need an ECF placement at a later stage. No other new complaints for now. Family is at the bedside. I lengthy discussion with the patient's family The blood work from today shows a white cell count of 12.4 with a hemoglobin of 11.8. Sodium is at 131, BUN is 97 with a creatinine of 1.85 and the rest of the liver function tests are essentially within normal limits. The patient is seen today 07/22/2022 in follow-up on the regular medical floor. He is currently sitting up in a chair at the bedside. Awake and alert in no acu te distress. Maintaining O2 saturations in the 90s on 4 L/m per nasal cannula. Blood cultures revealed no growth. Sputum culture pending. White count 13.7. Hemoglobin 12.6. Sodium 132. Potassium 5.7. Bicarb 28. BUN 105. Creatinine 2.08. Glucose 139. He is continued on DuoNeb inhalations, Pulmicort and Perforomist inhalations, prednisone taper. The patient is seen today 07/23/2022 in follow-up on the regular medical floor. He is awake and alert in no acute distress. Sitting up in a chair at the bedside. Maintaining O2 saturations in the 90s on 4 L/m per nasal cannula. Blood and sputum cultures revealed no growth. White count 11.8. Hemoglobin 11.2. Sodium 129. Potassium 4.7. BUN 103. Creatinine 1.86. Glucose 77. Remains on DuoNeb inhalations, Pulmicort and Perforomist inhalations, prednisone taper. The patient's stool was positive for occult blood. The plan is for EGD/colonoscopy on 07/25/2022. Currently on a clear liquid diet. The patient is seen today 07/24/2022 in follow-up on the regular medical floor. Currently sitting up in a chair at the bedside. Awake and alert in no acute distress. He is maintaining good O2 saturations in the 90s on 4 L/m per nasal cannula. No worsening shortness of breath, cough or congestion. White count 8.9. Hemoglobin 10.6. Sodium 130. Potassium 4.8. BUN 77. Creatinine 1.6. Glucose 70. He received Lasix 40 mg IVP 1 today. Currently in a negative balance. Remains on DuoNeb inhalations, Pulmicort and Perforomist inhalations, prednisone taper. He is awaiting a EGD/colonoscopy tomorrow. The patient is seen today 07/25/2022 in follow-up on the regular medical floor. He is awake and alert in no acute distress. Currently sitting up in bed. He was having some issues with emesis earlier. Clear fluid returned. He has been on a bowel prep. He is currently maintaining O2 saturations in the high 90s on 4 L nasal cannula. His lung sounds are clear. No shortness of breath, cough or congestion. Sputum culture revealed no growth. Sodium 129. Potassium 4.0. BUN 66. Creatinine 1.40. He remains on Symbicort, DuoNeb inhalations. Oral diuretics. Prednisone taper. Plan is for EGD/colonoscopy today. The patient is seen today 07/26/2022 in follow-up on the regular medical floor. Currently sitting up in a chair at the bedside. Eating lunch. He did undergo EGD and partial colonoscopy. Not completed due to poor prep. He was found to have duodenitis, antral gastritis, erosive esophagitis, diverticulosis. No active bleeding noted. Computed tomography scan of the abdomen today revealed g eneralized anasarca. Trace to small bilateral effusions with adjacent atelectasis. Trace to small abdominal ascites. Small to moderate anterior pericardial effusion. Cecal dilatation of 10.0 cm. There is contiguous air distention of the distal ileum up to 3.5 cm in the ascending and transverse colon up to 6.3 cm. Blood cultures revealed no growth. Sputum culture revealed no growth. White count 5.8. Hemoglobin 10.5. Platelets 129. Sodium 127. Potassium 3.7. BUN 41. Creatinine 1.21. Glucose 161. He remains on DuoNeb inhalations, Symbicort, prednisone taper. Oral diuretics. The patient is seen today 07/27/2022 in follow-up on the regular medical floor. He is currently sitting up in a chair at the bedside. Awake and alert in no acute distress. Maintaining O2 saturations in the 90s on 2 L/m per nasal cannula. Afebrile. Denies any worsening abdominal discomfort. Blood cultures revealed no growth. Sputum culture revealed no growth. White count 7.4. Hemoglobin 10.6. Sodium 137. Potassium 3.8. BUN 35. Creatinine 1.5. Glucose 200. He remains on DuoNeb inhalations, Symbicort, prednisone taper. Oral diuretics. The patient is seen today 07/29/2022 in follow-up on the regular medical floor. He is awake and alert in no acute distress. Sitting up in bed. Maintaining O2 saturations in the 90s on 2 L/m per nasal cannula. Abdominal x-ray reveals persistent gaseous dilatation throughout the bowel seen on prior CT. Findings correlate with ileus. Evidence of COPD. Sputum culture revealed no growth. Blood cultures revealed no growth. White count 4.3. Hemoglobin 10.0. Sodium 1:30. Potassium 3.3. BUN 34. Creatinine 1.39. Glucose 155. He is continued on Symbicort, DuoNeb inhalations, prednisone taper. Surgical services are on the case. Diet is advanced to liquids. The patient is seen today 07/30/2022 follow-up on the regular medical floor. He is sitting up in a chair at the bedside. Awake and alert in no acute distress. Maintaining good O2 saturations in the 90s on 2 L/m per nasal cannula. Blood cultures reveal no growth. Sputum culture revealed no growth. Sodium 134. Potassium 3.3. BUN 24. Creatinine 1.5. Glucose 123. Continue on Symbicort, DuoNeb inhalations, prednisone. The patient is seen today 07/31/2022 in follow-up on the regular medical floor. He is sitting up in bed. Awake and alert in no acute distress. Continues to maintain good O2 saturations in the 90s on 2 L/m per nasal cannula. No IV fluids. Sputum culture revealed no growth. Blood cultures revealed no growth. Sodium 134. Potassium 3.5. BUN 19. Creatinine 1.5. Glucose 69. He has been advanced to a full liquid diet per surgical services. Continue on Symbicort, DuoNeb inhalations, prednisone. The patient is seen today 08/01/2022 in follow-up on the regular medical floor. He is currently resting comfortably in bed. Awake and alert in no acute distress. Maintaining good O2 saturations in the 90s on 2 L/m per nasal cannula. No IV fluids. Blood cultures reveal no growth. Sputum culture revealed no growth. Sodium 134. Potassium 3.4. BUN 16. Creatinine 1.3. Continue on Symbicort, DuoNeb inhalations, prednisone. He remains on a full liquid diet. The patient is seen today 08/12/2022 in follow-up on the regular medical floor. He is currently sitting up in a chair at the bedside. Awake and alert in no acute distress. Maintaining O2 saturations in the 90s on room air. His diet has been advanced to consistent carbohydrates and tolerating well. Sputum culture revealed no growth. Blood cultures revealed no growth. Sodium 134. Potassium 3.7. Bicarb 24. BUN 17. Creatinine 1.3. Glucose 132. He is continued on Symbicort and DuoNeb inhalations. Objective - Vital Signs Vital signs: Vital Signs Temp 98.6 F 08/02/22 08:00 Pulse 84 08/02/22 09:17 Resp 16 08/02/22 08:00 BP 114/62 08/02/22 08:00 Pulse Ox 95 08/02/22 09:08 FiO2 35 07/17/22 11:06 Intake & Output 08/01/22 08/02/22 08/02/22 18:59 06:59 18:59 Intake Total 960 Output Total 1100 350 Balance -140 -350 Weight 78 kg 63.5 kg 63.5 kg Intake: Oral 960 Output: Urine 1100 350 Other: Voiding Method Indwelling Catheter Indwelling Catheter Indwelling Catheter # Bowel Movements 2 - Exam Alert, 66-year-old male, no acute distress, sitting up in a chair, currently on room air. HEENT examination is grossly unremarkable. Neck supple. Full range of motion. No adenopathy thyromegaly or neck vein distention. Cardiovascular examination reveals regular rhythm rate. S1-S2 normal. No S3 or S4. No discernible murmur noted. Heart sounds are distant. Lungs reveal no crackles, wheeze or rhonchi. Diminished Abdomen , obese, soft, hypoactive bowel sounds. No masses or tenderness. Extremities are intact. No cyanosis clubbing or edema. Skin is without rash or lesion.Examination of the skin revealed no evidence of significant rashes, suspicious appearing nevi or other concerning lesions. Neurologic examination Neurologically, the patient is awake and alert and the patient does not have any focal neurological deficit. Cranial nerves are essentially intact. - Labs CBC & Chem 7: 07/29/22 09:14 08/02/22 06:24 Labs: Abnormal Lab Results - Last 24 Hours (Table) 08/01/22 08/01/22 08/02/22 Range/Units 16:34 19:43 02:25 Sodium (135-145) mmol/L Est GFR (CKD-EPI)NonAf (60.0-200.0) Glucose (70-110) mg/dL POC Glucose (mg/dL) 362 H 132 H 293 H (70-110) mg/dL Calcium (8.7-10.3) mg/dL 08/02/22 08/02/22 Range/Units 06:24 06:31 Sodium 134 L (135-145) mmol/L Est GFR (CKD-EPI)NonAf 56.1 L (60.0-200.0) Glucose 132 H (70-110) mg/dL POC Glucose (mg/dL) 161 H (70-110) mg/dL Calcium 7.4 L (8.7-10.3) mg/dL Assessment and Plan Assessment: Acute hypoxemic respiratory failure secondary to COPD exacerbation and the patient presented with acute hypoxic and hypercapnic respiratory failure. Oxygenation has improved. Remains on room air. Severe COPD and the patient has an FEV1 of 39% of predicted at baseline and this is based on spirometry that was done on 09/28/2020. The patient has been maintained on Advair and DuoNeb about treatments [id number].. Delirium, recovered Acute kidney injury, recovered creatinine 1.3. Acute tracheobronchitis. Recovered Supraventricular tachycardia/atrial fibrillation with RVR. Patient is currently on normal sinus rhythm. The patient is also on anticoagulation with Eliquis. The patient has a normal LV function History of laryngeal carcinoma, in remission, status post radiation treatment, diagnosed in 2017. Acute hypercapnic respiratory failure secondary to severe COPD. GI bleed with positive stool for occult blood, current hemoglobin 10.6. Plans for EGD/colonoscopy revealed duodenitis, antral gastritis, erosive esophagitis, diverticulosis. No active bleeding. Cecal dilatation of 10 cm with distention in the distal ileum to the ascending and transverse colon Plan: The patient was seen and evaluated Medications and labs reviewed Stable and on room air Cleared for transfer to [facility] once cleared by surgery I have personally seen and examined the patient, performed the documentation and the assessment and plan as written. Number of minutes spent on the visit: 10.
[2022-08-02 11:55] LABS: Glucose,Whole Blood 221 mg/dL (70-110)
[2022-08-02] MEDS ORDERED: POTASSIUM CHLORIDE ER 20 MEQ TAB.ER PO STA (11:58)
--- NOTE | 2022-08-02 11:58 | P.PN ---
Subjective Patient is seen in follow-up for acute kidney injury. Renal function improved. Creatinine stable at 1.3. Tolerating regular diet now. Denies chest pain or shortness of breath. Nonoliguric. On oral Lasix. Rojas catheter reinserted due to persistent retention. Sitting up in chair. No active complaints. Vital signs are stable. General: Awake. No acute distress. HEENT: Head exam is unremarkable. LUNGS: Breath sounds decreased. HEART: Rate and Rhythm are regular. ABDOMEN: Soft, distention noted. EXTREMITITES: Trace edema. Objective - Vital Signs Vital signs: Vital Signs Temp 98.6 F 08/02/22 08:00 Pulse 84 08/02/22 09:17 Resp 16 08/02/22 08:00 BP 114/62 08/02/22 08:00 Pulse Ox 95 08/02/22 09:08 FiO2 35 07/17/22 11:06 Intake & Output 08/01/22 08/02/22 08/02/22 18:59 06:59 18:59 Intake Total 960 Output Total 1100 350 Balance -140 -350 Weight 78 kg 63.5 kg 63.5 kg Intake: Oral 960 Output: Urine 1100 350 Other: Voiding Method Indwelling Catheter Indwelling Catheter Indwelling Catheter # Bowel Movements 2 - Labs CBC & Chem 7: 07/29/22 09:14 08/02/22 06:24 Labs: Abnormal Lab Results - Last 24 Hours (Table) 08/01/22 08/01/22 08/02/22 Range/Units 16:34 19:43 02:25 Sodium (135-145) mmol/L Est GFR (CKD-EPI)NonAf (60.0-200.0) Glucose (70-110) mg/dL POC Glucose (mg/dL) 362 H 132 H 293 H (70-110) mg/dL Calcium (8.7-10.3) mg/dL 08/02/22 08/02/22 08/02/22 Range/Units 06:24 06:31 11:54 Sodium 134 L (135-145) mmol/L Est GFR (CKD-EPI)NonAf 56.1 L (60.0-200.0) Glucose 132 H (70-110) mg/dL POC Glucose (mg/dL) 161 H 221 H (70-110) mg/dL Calcium 7.4 L (8.7-10.3) mg/dL Assessment and Plan Plan: Assessment: 1. Acute kidney injury secondary to hemodynamic ATN. Renal function improved. Creatinine 1.3 today. No hydronephrosis noted on CAT scan. 2. Ileus. Surgery following. 3. A. fib. Cardiology following. Rate controlled. On oral amiodarone. 4. Diabetes mellitus. 5. Volume overload. Maintained on Lasix. 6. Urinary retention. On Flomax. Rojas catheter reinserted 07/31/2022. 7. Hypokalemia from diuresis. Replace. Better. 8. Hyponatremia. Hypervolemic. Better. Status post Samsca this admission. 9. Hypomagnesemia from diuresis. Stable. On oral magnesium oxide. Plan: Maintain oral Lasix. Replace potassium. Continue to monitor renal function and urine output. Avoid nephrotoxins. Maintain Rojas catheter. Try to avoid in 1 week at ECF.
--- NOTE | 2022-08-02 12:53 | P.PN ---
Subjective Progress Note Date: 08/02/22 CHIEF COMPLAINT: Ileus HISTORY OF PRESENT ILLNESS: Patient sitting at bedside chair. He reports feeling better today. His abdomen soft. He denies any pain. He did have a loose bowel movement. Denies any nausea or vomiting. Afebrile. Sodium 134 potassium 3.7 creatinine 1.3 and easy 1.7 Patient seen and examined with Dr. Jim PHYSICAL EXAM: VITAL SIGNS: Reviewed. GENERAL: Well-developed in no acute distress. ABDOMEN: Soft. distended. Nontender ASSESSMENT: 1. GI bleed resolved. Likely due to erosive esophagitis 2. Ileus improved 2. Acute COPD exacerbation with acute hypoxic respiratory failure 3. SVT and AFIB 4. Hypokalemia resolved PLAN: -Patient can be discharged from surgical standpoint -Continue PPI -Continue good bowel regimen Physician Prescription Benefit Specialist note has been reviewed by physician. Signing provider agrees with the documented findings, assessment, and plan of care. Objective - Vital Signs Vital signs: Vital Signs Temp 98.6 F 08/02/22 08:00 Pulse 90 08/02/22 12:37 Resp 16 08/02/22 08:00 BP 114/62 08/02/22 08:00 Pulse Ox 95 08/02/22 09:08 FiO2 35 07/17/22 11:06 Intake & Output 08/01/22 08/02/22 08/02/22 18:59 06:59 18:59 Intake Total 960 Output Total 1100 350 Balance -140 -350 Weight 78 kg 63.5 kg 63.5 kg Intake: Oral 960 Output: Urine 1100 350 Other: Voiding Method Indwelling Catheter Indwelling Catheter Indwelling Catheter # Bowel Movements 2 - Labs CBC & Chem 7: 07/29/22 09:14 08/02/22 06:24 Labs: Abnormal Lab Results - Last 24 Hours (Table) 08/01/22 08/01/22 08/02/22 Range/Units 16:34 19:43 02:25 Sodium (135-145) mmol/L Est GFR (CKD-EPI)NonAf (60.0-200.0) Glucose (70-110) mg/dL POC Glucose (mg/dL) 362 H 132 H 293 H (70-110) mg/dL Calcium (8.7-10.3) mg/dL 08/02/22 08/02/22 08/02/22 Range/Units 06:24 06:31 11:54 Sodium 134 L (135-145) mmol/L Est GFR (CKD-EPI)NonAf 56.1 L (60.0-200.0) Glucose 132 H (70-110) mg/dL POC Glucose (mg/dL) 161 H 221 H (70-110) mg/dL Calcium 7.4 L (8.7-10.3) mg/dL
--- NOTE | 2022-08-02 15:05 | P.DS ---
Providers Date of admission: 07/06/22 17:14 Expected date of discharge: 08/02/22 Attending physician: Radha Marroquin Consults: 07/06/22 17:14 Consult Physician Routine Consulting Provider: Lizbeth Cross Consult Reason/Comments: copd exacerbation Do you want consulting provider notified?: Yes 07/09/22 08:57 Consult Physician Routine Consulting Provider: David Jim Consult Reason/Comments: ileus rule out obstruction Do you want consulting provider notified?: Yes 07/12/22 09:39 Consult Physician Routine Consulting Provider: Apoorva Gongora Consult Reason/Comments: hypernatremia Do you want consulting provider notified?: Yes 07/21/22 12:16 Consult Physician Routine Consulting Provider: David Jim Consult Reason/Comments: Maroon stools-reconsult Do you want consulting provider notified?: Yes 07/22/22 11:20 Consult Physician Routine Consulting Provider: David Jim Consult Reason/Comments: Maroon stoold- reconsult Do you want consulting provider notified?: Already Contacted Primary care physician: Lizbeth Cross Hospital Course: Final diagnosis Acute COPD exacerbation and tracheobronchitis, improved Acute hypoxemic respiratory failure secondary to above SVT/Atrial fibrillation with rapid rate converted to normal sinus rhythm Hypertension history with hypotension during hospitalization, improved on midodrine Ruled out GI bleed On EGD colonoscopy, most likely erosive esophagitis Hypernatremia, resolved currently hyponatremic, improved with samsca Acute kidney injury, initially resolved, creatinine elevated from hypotension and component of urinary retention, trending down Urinary retention with indwelling greenfield catheter required cecal dilatation noted on CT Diabetes Mellitus type 2 A1C 6.5. 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 Patient will follow-up with Dr. Cross his primary care in the outpatient setting upon discharge. Patient is to follow-up with nephrology as well in the outpatient setting. Patient to continue prednisone taper and currently on 20 mg to continue for the rest of the week 7 days, then taper down to 10 mg daily thereafter. Patient will need pulmonary follow-up which is also his primary care provider. Total time taken is greater than 35 minutes. Hospital course This is a 66-year-old male who was recently admitted with a known history of severe COPD and history of throat cancer post radiation back in 2016 presenting with worsening shortness of breath and a cough and being closely monitored. Patient also having some tachycardia and was found to be in SVT. Cardiology evaluated the patient recommending amiodarone for one month and then may discontinue. Recommend outpatient follow-up with primary care provider and/or cardiology to discuss this. Patient with prolonged hospitalization including surgery consultation for ileus on 2 occasions and also questionable GI bleed as patient did have maroon-colored stools. Patient underwent EGD/colonoscopy and biopsies obtained and will need follow-up with no active bleeding noted which is most likely probably secondary to erosive esophagitis per surgery. Patient's hemoglobin is stable and recommend close monitoring. Patient also monitored closely by nephrology for acute renal failure although improved and recommending outpatient follow-up in the next 1-2 weeks. Patient's kidney functions improving and will continue current medication regimen. Patient is to continue to hold metformin and may use sliding scale and recommend monitoring Accu-Cheks before meals and at bedtime. Patient has been transitioned up to consistent carb diet and tolerating. Patient continues with abdominal distention although soft and has been cleared by general surgery for follow-up outpatient. Patient extremely weak with muscle wasting noted recommending ECF for continued strength and mobility. Trial void attempted although patient was continuing to retain requiring indwelling Greenfield catheter. Recommend trial void later in a week once more mobile. Patient may need outpatient urology follow-up. Patient is agreeable and will be going to [facility] today. Currently no reports of chest pain, worsening shortness of breath, or palpitations. Patient is afebrile. No reports of nausea or vomiting and patient is tolerating diet. Patient will be going to [facility] today. Guarded prognosis. Physical exam: Gen: This is a 66-year-old male who is awake, alert and oriented 3, ill- appearing, elderly appearing male HEENT: Head is atraumatic, normocephalic. Pupils equal, round. Sclerae is anicteric. NECK: Supple. No JVD. No lymphadenopathy. No thyromegaly. LUNGS: Diminished breath sounds bilaterally with some scattered rhonchi. No intercostal retractions. HEART: S1, S2 are muffled ABDOMEN: Soft. Distended, nontender on palpation Bowel sounds are present. No masses. No tenderness. EXTREMITIES: No pedal edema. No calf tenderness. NEUROLOGICAL: Patient is awake, alert and oriented x3. Cranial nerves 2 through 12 are grossly intact. Generalized weakness Please refer to medication reconciliation sheet for a list of medications. The impression and plan of care has been dictated by Tfifanie Kauffman, Nurse Practitioner as directed. Dr. Cara MD I have performed a history and examination and MDM of this patient, discussed the same with the dictator, and agree with the dictator's assessment and plan as written ,documented as a scribe. Based on total visit time, I have performed more than 50% of the visit. Patient Condition at Discharge: Fair Plan - Discharge Summary Discharge Rx Participant: No New Discharge Prescriptions: New Benzocaine/Menthol Lozeng [Cepacol lozenge] 1 each MUCOUS MEM Q4HR PRN lozenge PRN Reason: Sore Throat Ipratropium-Albuterol Nebulize [Duoneb 0.5 mg-3 mg/3 ml Soln] 3 ml INHALATION RT-QID each Furosemide [Lasix] 40 mg PO DAILY tab Magnesium Oxide [Mag-Ox] 400 mg PO BID tab Simethicone 40 mg/0.6 ml Drops [Mylicon Drops] 80 mg PO QID ml INSULIN ASPART (NovoLOG) [NovoLOG (formulary)] 0 unit SQ ACHS each predniSONE 20 mg PO DAILY #7 tab Midodrine [ProAmatine] 5 mg PO AC-TID tab Acetaminophen Tab [Tylenol] 325 mg PO Q6HR PRN tab PRN Reason: Fever And/ Or Pain Omeprazole 20 mg PO BID #60 tab Amiodarone [Cordarone] 200 mg PO BID tab Tamsulosin [Flomax] 0.4 mg PO PC-BRKFST cap Heparin Sodium,Porcine [Heparin Sodium] 5,000 unit SQ Q12HR #60 each Insulin Detemir (Levemir) [Levemir] 10 unit SQ BID@0700,2100 each Famotidine [Pepcid] 20 mg PO DAILY tab Temazepam [Restoril] 7.5 mg PO HS 3 Days #3 cap Sennosides [Senokot] 8.6 mg PO BID #60 tablet Budesonide-Formot 160-4.5 Mcg [Symbicort 160-4.5 Mcg Inhaler] 2 puff INHALATION RT-BID each Calcium Carbonate [Tums] 1,000 mg PO TID tab Continue Albuterol Inhaler [Ventolin Hfa Inhaler] 2 puff INHALATION RT-QID PRN PRN Reason: Shortness Of Breath Simvastatin [Zocor] 20 mg PO HS Ipratropium-Albuterol Nebulize [Duoneb 0.5 mg-3 mg/3 ml Soln] 3 ml INHALATION RT-QID PRN PRN Reason: Shortness Of Breath Fluticasone Propion/Salmeterol [Advair 250-50 Diskus] 1 puff INHALATION RT- DAILY Discontinued Omeprazole 20 mg PO DAILY Discharge Medication List Albuterol Inhaler [Ventolin Hfa Inhaler] 2 puff INHALATION RT-QID PRN 05/01/17 [History] Fluticasone Propion/Salmeterol [Advair 250-50 Diskus] 1 puff INHALATION RT-DAILY 07/06/22 [History] Ipratropium-Albuterol Nebulize [Duoneb 0.5 mg-3 mg/3 ml Soln] 3 ml INHALATION RT-QID PRN 07/06/22 [History] Simvastatin [Zocor] 20 mg PO HS 07/06/22 [History] Acetaminophen Tab [Tylenol] 325 mg PO Q6HR PRN tab 08/02/22 [Rx] Amiodarone [Cordarone] 200 mg PO BID tab 08/02/22 [Rx] Benzocaine/Menthol Lozeng [Cepacol lozenge] 1 each MUCOUS MEM Q4HR PRN lozenge 08/02/22 [Rx] Budesonide-Formot 160-4.5 Mcg [Symbicort 160-4.5 Mcg Inhaler] 2 puff INHALATION RT-BID each 08/02/22 [Rx] Calcium Carbonate [Tums] 1,000 mg PO TID tab 08/02/22 [Rx] Famotidine [Pepcid] 20 mg PO DAILY tab 08/02/22 [Rx] Furosemide [Lasix] 40 mg PO DAILY tab 08/02/22 [Rx] Heparin Sodium,Porcine [Heparin Sodium] 5,000 unit SQ Q12HR #60 each 08/02/22 [Rx] INSULIN ASPART (NovoLOG) [NovoLOG (formulary)] 0 unit SQ ACHS each 08/02/22 [Rx] Insulin Detemir (Levemir) [Levemir] 10 unit SQ BID@0700,2100 each 08/02/22 [Rx] Ipratropium-Albuterol Nebulize [Duoneb 0.5 mg-3 mg/3 ml Soln] 3 ml INHALATION RT-QID each 08/02/22 [Rx] Magnesium Oxide [Mag-Ox] 400 mg PO BID tab 08/02/22 [Rx] Midodrine [ProAmatine] 5 mg PO AC-TID tab 08/02/22 [Rx] Omeprazole 20 mg PO BID #60 tab 08/02/22 [Rx] Sennosides [Senokot] 8.6 mg PO BID #60 tablet 08/02/22 [Rx] Simethicone 40 mg/0.6 ml Drops [Mylicon Drops] 80 mg PO QID ml 08/02/22 [Rx] Tamsulosin [Flomax] 0.4 mg PO PC-BRKFST cap 08/02/22 [Rx] Temazepam [Restoril] 7.5 mg PO HS 3 Days #3 cap 08/02/22 [Rx] predniSONE 20 mg PO DAILY #7 tab 08/02/22 [Rx] Follow up Appointment(s)/Referral(s): Lizbeth Cross MD [Primary Care Provider] - 08/07/22 9:30 am Esthergable Farheen, [NON-STAFF] - As Needed Maximiliano Daniel DO [STAFF PHYSICIAN] - 1 Week Ambulatory/Diagnostic Orders: Complete Blood Count w/diff [LAB.AMB] Time Frame: 3 Days, Location: None Selected Patient Instructions/Handouts: Supraventricular Tachycardia (DC), Gastritis (DC), Ileus (DC), Esophagitis (DC), Duodenitis (DC) Activity/Diet/Wound Care/Special Instructions: Leave greenfield in until 08/08, voiding trial upon D/C of catheter Zinc paste to buttocks daily and prn Activity as tolerated Patient will be going to [facility] Continue with medications as prescribed Continue with consistent carbohydrate diet Continue monitoring Accu-Cheks before meals and at bedtime Continue with sliding scale along with long-acting NovoLog sliding scale 0-150 equals 0 units 151-200 equals 2 units 201-250 equals 4 units 251-300 equals 6 units 301-350 equals 8 units 351-400 equals 10 units Please notify provider if blood sugar is 400 or above Patient will need outpatient follow-up with pulmonary, nephrology, cardiology, general surgery as needed Discharge Disposition: TRANSFER TO SNF/ECF
[2022-08-02 15:47] VITALS: PULSE 92
[2022-08-02 16:07] VITALS: BP 112/56; RESP 18; TEMP 98.4
--- NOTE | 2022-08-03 14:25 | CDI ---
Documentation Clarification Form Date: 08/03/2022 11:08:00 AM From: Naida Patel Phone: Admit Date: 07/06/2022 05:14:00 PM Patient Name: Maxx Leach Visit Number: [id number] Discharge Date: 08/02/2022 04:18:00 PM ATTENTION: The Clinical Documentation Specialists (CDI) and [facility] Coding Staff appreciate your assistance in clarifying documentation. Please respond to the clarification below the line at the bottom and electronically sign. The CDI & [facility] Coding staff will review the response and follow-up if needed. Please note: Queries are made part of the Legal Health Record. If you have any questions, please contact the author of this message via ITS. Dr. Lizbeth Cross Pulmonary fibrosis is documented per Pulmonology Consult 07/07/22 and patient is noted to have Hx of Laryngeal cancer sp radiation and AE emphysema/COPD. Please clarify if there is a relationship between the diagnoses. History/Risk Factors: 66yo M, AE emphysema/COPD, A/C H&HRF, ATN, SVT, CHF, GIB Clinical Indicators: CT angiogram Elevated D-dimer, SOB, DAVID, Concern for PE. Treatment: Continue BiPAP, cut down her FiO2 to 30% Chris 30 5% after reviewing the ABG. Transfer patient to ICU and monitor closely. Continue updrafts. Empiric antibiotics, patient will be placed on Rocephin for now, transitioned later to oral antibiotics once he is off BiPAP. Continue Symbicort Please clarify the relationship, if any, which is clinically appropriate for this patient: [ ] Pulmonary fibrosis is due to Hx radiation [ ] Pulmonary fibrosis is due to AE emphysema/COPD [ ] Other explanation of clinical findings (please specify) [ x ] Unable to determine (no explanation for clinical findings) (Template Last Revised: October 2020) MTDD
--- NOTE | 2022-08-03 14:37 | CDI ---
Documentation Clarification Form Date: 08/03/2022 02:28:25 PM From: Naida Patel Phone: Admit Date: 07/06/2022 05:14:00 PM Patient Name: Maxx Leach Visit Number: [id number] Discharge Date: 08/02/2022 04:18:00 PM ATTENTION: The Clinical Documentation Specialists (CDI) and [facility] Coding Staff appreciate your assistance in clarifying documentation. Please respond to the clarification below the line at the bottom and electronically sign. The CDI & [facility] Coding staff will review the response and follow-up if needed. Please note: Queries are made part of the Legal Health Record. If you have any questions, please contact the author of this message via ITS. Dr. Cody Chiu Your patient has the documented diagnosis of unspecified CHF per Cardiology Consult 07/07/22. Additional information regarding the type and acuity of CHF is requested. History/Risk Factors: 66yo M, AE emphysema/COPD, A/C H&HRF, ATN, SVT, CHF, GIB, PAF, HTN, DMII, BPH w retention Clinical Indicators: VS/Pulse OX: 97 BNP: 378 Echocardiogram Results: Normal LV size and systolic function. Mild MR & TR. Small pericardial effusion. Chest x ray: There is no heart failure nor confluent pneumonic infiltrate. There is pulmonary hyperinflation with some flattening of the diaphragm. There are chest leads. Thoracic aorta is atheromatous. Treatment: Continue supportive treatment including aggressive pulmonary hygiene. Further recommendations based on clinical course In your professional opinion, can you please clarify the type and acuity of CHF if known? [ ] Chronic Systolic Heart Failure (reduced EF) [ X ] Chronic Diastolic Heart Failure (preserved EF) [ ] Chronic Systolic & Diastolic Heart Failure [ ] Other, please specify [ ] Unable to determine (Template Last Revised: September 2020) MTDD
== END 2022-08-02 16:18 | DRG 190 ==
LOC: EC 12:42 → 3SCARD 17:14 → 2SICU 07-07 10:04 → 4SSUR 07-17 17:09
PROVIDERS: ADMIT Internal Medicine; ATTEND Internal Medicine
PROC: 5A09357 Assistance with Respiratory Ventilation, Less than 24 Consecutive Hours, Continuous Positive Airway Pressure (ICD-10-PCS; principal; 2022-07-06)
PROC: 0D9670Z Drainage of Stomach with Drainage Device, Via Natural or Artificial Opening (ICD-10-PCS; 2022-07-10)
PROC: 0DB38ZX Excision of Lower Esophagus, Via Natural or Artificial Opening Endoscopic, Diagnostic (ICD-10-PCS; 2022-07-25)
PROC: 0DJD8ZZ Inspection of Lower Intestinal Tract, Via Natural or Artificial Opening Endoscopic (ICD-10-PCS; 2022-07-25)
DX: J43.9 Emphysema, unspecified (principal); J96.21 Acute and chronic respiratory failure with hypoxia; K22.11 Ulcer of esophagus with bleeding; K29.81 Duodenitis with bleeding; K29.71 Gastritis, unspecified, with bleeding; K57.11 Diverticulosis of small intestine without perforation or abscess with bleeding; J96.22 Acute and chronic respiratory failure with hypercapnia; N17.0 Acute kidney failure with tubular necrosis; I31.39 Other pericardial effusion (noninflammatory); K59.39 Other megacolon; E87.0 Hyperosmolality and hypernatremia; R18.8 Other ascites; E87.20 Acidosis, unspecified; B00.89 Other herpesviral infection; E87.1 Hypo-osmolality and hyponatremia; I47.1 Supraventricular tachycardia; I48.19 Other persistent atrial fibrillation; K56.7 Ileus, unspecified; F10.239 Alcohol dependence with withdrawal, unspecified; I50.32 Chronic diastolic (congestive) heart failure; I11.0 Hypertensive heart disease with heart failure; E11.9 Type 2 diabetes mellitus without complications; I08.1 Rheumatic disorders of both mitral and tricuspid valves; I95.9 Hypotension, unspecified; J84.10 Pulmonary fibrosis, unspecified; J20.9 Acute bronchitis, unspecified; K44.9 Diaphragmatic hernia without obstruction or gangrene; Z20.822 Contact with and (suspected) exposure to COVID-19; N40.1 Benign prostatic hyperplasia with lower urinary tract symptoms; R33.8 Other retention of urine; R49.0 Dysphonia; E87.6 Hypokalemia; F41.0 Panic disorder [episodic paroxysmal anxiety]; M62.50 Muscle wasting and atrophy, not elsewhere classified, unspecified site; E83.42 Hypomagnesemia; E87.5 Hyperkalemia; N31.9 Neuromuscular dysfunction of bladder, unspecified; N13.9 Obstructive and reflux uropathy, unspecified; R11.10 Vomiting, unspecified; R31.9 Hematuria, unspecified; B96.3 Hemophilus influenzae [H. influenzae] as the cause of diseases classified elsewhere; R01.1 Cardiac murmur, unspecified; R53.81 Other malaise; Z92.3 Personal history of irradiation; Z79.899 Other long term (current) drug therapy; Z79.4 Long term (current) use of insulin; Z79.01 Long term (current) use of anticoagulants; Z85.21 Personal history of malignant neoplasm of larynx; Z87.891 Personal history of nicotine dependence; Z28.311 Partially vaccinated for COVID-19; Z79.51 Long term (current) use of inhaled steroids; Z85.818 Personal history of malignant neoplasm of other sites of lip, oral cavity, and pharynx; Z85.819 Personal history of malignant neoplasm of unspecified site of lip, oral cavity, and pharynx; Z87.19 Personal history of other diseases of the digestive system
CPT/HCPCS: 36415; 36600; 43239; 45378; 71045; 71275; 74018; 74019; 74176; 80048; 80053; 81001; 82272; 82805; 83036; 83605; 83735; 83880; 84145; 84295; 84443; 84484; 85025; 85027; 85379; 85610; 85730; 87040; 87070; 87205; 87502; 87635; 88305; 88312; 93005; 93306; 94640; 94660; 94760; 96361; 96365; 96366; 96375; 96376; 99291

== ENCOUNTER → 2023-10-13 | Outpatient (CLI) | payer MEDICARE ==
[2023-10-13 15:12] LABS: Basophils # (A) 0.04 X 10*3/uL (0.00-0.10); Basophils % (A) 0.5 %; Eosinophils # (A) 0.13 X 10*3/uL (0.04-0.35); Eosinophils % (A) 1.7 %; HCT 44.9 % (39.6-50.0); HGB 15.4 g/dL (13.0-17.0); Lymphocytes # (A) 1.33 X 10*3/uL (0.90-5.00); Lymphocytes % (A) 17.8 %; MCH 29.9 pg (27.0-32.0); MCHC 34.3 g/dL (32.0-37.0); MCV 87.2 FL (80.0-97.0); Mean Platelet Volume 8.9 FL (9.5-12.2); Monocytes # (A) 0.51 X 10*3/uL (0.20-1.00); Monocytes % (A) 6.8 %; NRBC Per 100 WBC 0 X 10*3/uL (0.00-0.01); Neutrophils # (A) 5.43 X 10*3/uL (1.80-7.70); Neutrophils % (A) 72.9 %; Platelet Count 266 X 10*3/uL (140-440); RBC 5.15 X 10*6/uL (4.40-5.60); RDW 12.9 % (11.5-14.5); WBC 7.46 X 10*3/uL (4.50-10.00)
[2023-10-13 15:35] LABS: ALT 13 U/L (10-49); AST 18 U/L (14-35); Albumin 4.5 g/dL (3.8-4.9); Albumin/Globulin Ratio 1.96 Ratio (1.60-3.17); Alkaline Phosphatase 65 U/L (41-126); BUN/Creat Ratio 16.67 Ratio (12.00-20.00); Calcium 9.8 mg/dL (8.7-10.3); Carbon Dioxide 23.6 mmol/L (21.6-31.8); Chloride 105 mmol/L (96-109); Chol/HDL Ratio 4.59 Ratio; Globulin 2.3 g/dL (1.6-3.3); Glucose 118 mg/dL (70-110); LDL Cholesterol,Calculated 139.2 mg/dL (0.0-131.0); Potassium 4.5 mmol/L (3.5-5.5); Sodium 143 mmol/L (135-145); Total Bilirubin 0.5 mg/dL (0.3-1.2); Total Protein 6.8 g/dL (6.2-8.2)
== END | disposition home or self-care (01) ==
LOC: LABWHC1 11:51
PROVIDERS: ATTEND Internal Medicine
DX: Z12.5 Encounter for screening for malignant neoplasm of prostate (principal); E78.5 Hyperlipidemia, unspecified
CPT/HCPCS: 84439; 80061; 80053; 84443; 85025; 83036; 36415; G0103

== ENCOUNTER → 2024-06-12 | Outpatient (CLI) | payer MEDICARE | END | disposition home or self-care (01) | LOC: LABWHC1 10:49 | PROVIDERS: ATTEND Urology | DX: R97.20 Elevated prostate specific antigen [PSA] (principal) | CPT/HCPCS: 36415; 84153; 84154 ==

== ENCOUNTER 2024-07-06 06:59 | Day surgery (SDC) | payer MEDICARE ==
[2024-07-02 12:48] VITALS: BMI 24.3
[~2024-07-06 06:59] MED LIST: ALPRAZolam 0.25 MG TAB PO PRN; ALPRAZolam 0.5 MG TAB PO PRN; ATORVASTATIN 80 MG TAB PO STA; NITROGLYCERIN SL TABS 0.4 MG TAB SUBLINGUAL PRN
[2024-07-06] MEDS: ASPIRIN 325 MG TAB PO STA (07:34)
[2024-07-06] MEDS: SODIUM CHLORIDE 0.9% 1,000 ML in EMPTY BAG 1 BAG IV SCH (07:34)
[2024-07-06] MEDS: IV FLUID CONTINUATION 1,000 ML IV ONE ×2 (07:36→08:45)
[2024-07-06 07:55] VITALS: TEMP 97.8
[2024-07-06] MEDS: fentaNYL (PF) 50 MCG/ML 2 ML AMP IVP ONE (09:23)
[2024-07-06 09:24] LABS: Basophils % (A) 0 %; Eosinophils # (A) 0.2 k/uL (0-0.7); Eosinophils % (A) 3 %; HCT 48.7 % (39.0-53.0); HGB 15.9 gm/dL (13.0-17.5); Lymphocytes # (A) 1.6 k/uL (1.0-4.8); Lymphocytes % (A) 19 %; MCH 28.6 pg (25.0-35.0); MCHC 32.6 g/dL (31.0-37.0); MCV 87.7 fL (80.0-100.0); Monocytes # (A) 0.5 k/uL (0-1.0); Monocytes % (A) 6 %; Neutrophils # (A) 5.8 k/uL (1.3-7.7); Neutrophils % (A) 70 %; Platelet Count 265 k/uL (150-450); RBC 5.55 m/uL (4.30-5.90); WBC 8.2 k/uL (3.8-10.6)
[2024-07-06] MEDS: LIDOCAINE 1% INJ 10MG/ML (20 ML MDV) SQ ONE (09:28)
[2024-07-06] MEDS: VERAPAMIL SYRINGE (5 MG/10 ML) INTRAARTER ONE (09:30)
[2024-07-06 09:33] LABS: African American GFR (CKD) 83 (>60 ml/min/1.73 sqM); Anion Gap 8 mmol/L; Blood Urea Nitrogen 21 mg/dL (9-20); Carbon Dioxide 25 mmol/L (22-30); Chloride 106 mmol/L (98-107); Glucose 117 mg/dL (74-99); Non-African American GFR(CKD) 72 (>60 ml/min/1.73 sqM); Potassium 3.9 mmol/L (3.5-5.1); Sodium 139 mmol/L (137-145)
[2024-07-06] MEDS: HEPARIN SODIUM 1,000 UN/ML (10ML VL) IVP ONE (09:33)
[2024-07-06] MEDS: HEPARIN SODIUM,PORCINE 10,000 UNIT in SODIUM CHLORIDE 0.9% 1,000 ML IRRIGATION PRN (09:38)
[2024-07-06] MEDS: IOPAMIDOL-370 100ML BTL INJ ONE (09:38)
[2024-07-06] MEDS: HEPARIN SODIUM,PORCINE (1 ML) 2,500 UNIT in SODIUM CHLORIDE 0.9% 250 ML IRRIGATION PRN (09:38)
[2024-07-06] MEDS ORDERED: RX INFO: IV CONTRAST WAS GIVEN 1 EACH MISC MISCELLANE PRN (09:49)
--- NOTE | 2024-07-06 09:53 | P.CARDCATH ---
Date of Procedure: 07/06/24 Description of Procedure: Cardiac Catheterization: The patient is a 68-year-old male who has been complaining of progressive dyspnea on exertion, had an abnormal echocardiogram and MPI. Recommendations were made regarding cardiac catheterization, the risks and the complications were discussed with the patient who is in full understanding and agreement. Procedure Description: Patient was brought to lab tech in fasting semi-sedated state after receiving Fentanyl and Benadryl achieiving moderate conscious sedated state. Using Xylocaine Anesthesia and modified Seldinger technique, a 6-Greenlandic sheath was introduced in the right radial artery . Subsequently, selective coronary angiography was performed using a 5-Greenlandic 3.5 bend Selvin catheter. Multiple views of the coronary artery including hemiaxial views were obtained. The right Selvin catheter was used to cross the aortic valve and LVEDP was calculated. Following that, catheter and sheath were removed. Hemostasis was obtained with deployment of vascular band . There was no immediate complication. Patient was returned to room in stable condition. Of note, the patient received a total of 4000 units of intravenous heparin as well as intra-arterial verapamil. Findings: Left main: This is a large size vessel, bifurcating into LAD and left circumflex, left main has no obstructive disease LAD: This is a large size vessel, reaching to the apex with a wraparound apex segment giving rise to a small to moderate diagonal branch. The LAD and its branches have no obstructive disease Left circumflex: This is a nondominant vessel, giving rise to a large obtuse marginal branch, the left circumflex and its branches have no obstructive disea se RCA: This is a dominant vessel, moderate in caliber, bifurcating into PDA and PLV. The right coronary artery and its branches have no obstructive disease Left Ventriculogram: Not performed Hemodynamics: There was no gradient across aortic valve, LVEDP was 12-16 mmHg Conclusion: 1. Normal coronary arteries 2. Right dominance 3. Normal LVEDP Recommendations: Based on the results of the testing I see no evidence to suggest a cardiac etiology to his dyspnea on exertion. The findings and the recommendations were discussed with the patient and the family and they were in full understanding and agreement. Duration of sedation is 12 minutes.
[2024-07-06] MEDS ORDERED: SODIUM CHLORIDE 0.9% 1,000 ML IV SCH (10:00)
[2024-07-06 12:32] VITALS: BP 145/85; PULSE 78; RESP 16
[2024-07-06] MEDS ORDERED: PANTOPRAZOLE 40 MG TABLET PO SCH (17:30)
[2024-07-06] MEDS ORDERED: ATORVASTATIN 10 MG TAB PO SCH (21:00)
== END 2024-07-06 12:40 | disposition home or self-care (01) ==
LOC: CATHCVL 06:59
PROVIDERS: ATTEND Internal Medicine Interventional Cardiology
DX: I25.5 Ischemic cardiomyopathy (principal); J44.9 Chronic obstructive pulmonary disease, unspecified; E78.2 Mixed hyperlipidemia; F17.211 Nicotine dependence, cigarettes, in remission; Z79.82 Long term (current) use of aspirin; Z79.899 Other long term (current) drug therapy
CPT/HCPCS: 80048; 85025; 93458; C1769 ×2; C1894; J1644 ×3; J2003; J3010; Q9967

== ENCOUNTER → 2024-11-27 | Outpatient (CLI) | payer MEDICARE ==
[2024-11-28 12:25] LABS: BUN/Creat Ratio 19.36 Ratio (12.00-20.00); Blood Urea Nitrogen 21.3 mg/dL (9.0-27.0); Calcium 9.2 mg/dL (8.7-10.3); Carbon Dioxide 24.7 mmol/L (21.6-31.8); Chloride 107 mmol/L (96-109); Glucose 122 mg/dL (70-110); Potassium 4.3 mmol/L (3.5-5.5); Sodium 144 mmol/L (135-145)
[2024-11-28 14:13] LABS: NT-Pro-B-Type Natriuretic Pept <36 pg/mL (0-125)
== END | disposition home or self-care (01) ==
LOC: LABWHC1 10:28
PROVIDERS: ATTEND Nurse Practitioner Adult Health
DX: I42.8 Other cardiomyopathies (principal); I50.22 Chronic systolic (congestive) heart failure
CPT/HCPCS: 36415; 80048; 83880